=== PATIENT | male | born 1945 | race Caucasian/White ===

== ENCOUNTER → 2017-03-06 | Outpatient (CLI) | payer MEDICARE, OTHER, SELFPAY | PROVIDERS: Visit Provider Family Medicine | DX: R50.9 Fever, unspecified (principal); R05 Cough | CPT/HCPCS: 87486; 87581; 87633; 87798 ==

== ENCOUNTER → 2017-03-07 | Outpatient (CLI) | payer MEDICARE, OTHER, SELFPAY | PROVIDERS: Family Provider Family Medicine; Visit Provider Family Medicine | DX: R50.9 Fever, unspecified (principal); R05 Cough | CPT/HCPCS: 71020 ==

== ENCOUNTER 2017-03-09 20:19 | Emergency (ER) | payer MEDICARE, OTHER, SELFPAY | END 2017-03-09 21:19 | disposition home or self-care (01) | PROVIDERS: Emergency Provider Nurse Practitioner Family; Family Provider Family Medicine; Visit Provider Nurse Practitioner Family | DX: J18.0 Bronchopneumonia, unspecified organism (principal); I25.10 Atherosclerotic heart disease of native coronary artery without angina pectoris; I10 Essential (primary) hypertension; Z79.82 Long term (current) use of aspirin | CPT/HCPCS: G0463; 87804; 99201 ==

== ENCOUNTER → 2017-03-22 12:05 | Outpatient (CLI) | payer MEDICARE, OTHER, SELFPAY ==
[2017-03-22 12:22] LABS: Adenovirus,PCR Not Detected (NotDetected); Bordetella Pertussis Not Detected (NotDetected); Chlamydophila Pneumoniae, PCR Not Detected (NotDetected); Coronavirus 229E Not Detected (NotDetected); Coronavirus NL63 Not Detected (NotDetected); Coronavirus OC43 Not Detected (NotDetected); Coronovirus HKU1,PCR Not Detected (NotDetected); Human Metapneumovirus Not Detected (NotDetected); Influenza A, PCR Not Detected (NotDetected); Influenza AH1, 2009 Not Detected (NotDetected); Influenza AH1, PCR Not Detected (NotDetected); Influenza AH3,PCR Not Detected (NotDetected); Influenza B, PCR Not Detected (NotDetected); Mycoplasma Pneumoniae, PCR Not Detected (NotDected); Parainfluenza 1, PCR Not Detected (NotDetected); Parainfluenza 2, PCR Not Detected (NotDetected); Parainfluenza 3, PCR Not Detected (NotDetected); Parainfluenza 4, PCR Not Detected (NotDetected); Respiratory Syncytial Virus Not Detected (NotDetected); Rhinovirus/Enterovirus Not Detected (NotDetected)
--- NOTE | 2017-03-22 12:25 | XR_ITS ---
XR chest 2V HISTORY: ITS.REASON: BRONCHOPNEUMONIA ORDERING PHYSICIAN: Eduardo Sosa MD PATIENT AGE: 71 years COMPARISON: 03/07/2017 FINDINGS: The cardiomediastinal silhouette and pulmonary vascularity are within normal limits. Previously noted shaggy infiltrate in the right suprahilar region is once again noted but somewhat less apparent. There is now increased density in the right lung base consistent with atelectasis and/or infiltrate. There is also patchy density in the retrocardiac region on the left. No effusions.. No acute bony abnormalities. IMPRESSION: Persistent bronchopneumonia with slight improvement in the right suprahilar infiltrate but new areas of infiltrate and/or atelectatic change in the right lung base and left retrocardiac region
== END ==
PROVIDERS: PCP Family Medicine; Visit Provider Family Medicine
DX: J18.0 Bronchopneumonia, unspecified organism (principal); R05 Cough
CPT/HCPCS: 71046; 87070; 87205; 87486; 87581; 87633; 87798

== ENCOUNTER → 2017-03-25 14:53 | Outpatient (CLI) | payer MEDICARE, OTHER, SELFPAY ==
--- NOTE | 2017-03-25 15:12 | XR_ITS ---
XR chest 2V HISTORY: ITS.REASON: BRONCHOPNEUMONIA ORDERING PHYSICIAN: Eduardo Sosa MD PATIENT AGE: 71 years COMPARISON: 03/22/2017 FINDINGS: The cardiomediastinal silhouette and pulmonary vascularity are within normal limits. Bronchopneumonia once again noted with bilateral areas of infiltrate in the right suprahilar region, right lower lobe, and left lower lung zone overall not significantly changed. No effusions. No acute bony anomalies. IMPRESSION: Overall no change bilateral bronchopneumonia.
== END ==
PROVIDERS: PCP Family Medicine; Visit Provider Family Medicine
DX: J18.0 Bronchopneumonia, unspecified organism (principal)
CPT/HCPCS: 71046

== ENCOUNTER 2017-03-28 10:15 | Inpatient (IN) | payer MEDICARE, OTHER, SELFPAY ==
[2017-03-28] VITALS (7 sets, daily range): BP systolic 112–118; BP diastolic 50–64; PULSE 69–74; RESP 20–24; TEMP 37.2–37.4; O2SAT 90–96; BMI 28.3
--- NOTE | 2017-03-28 11:07 | PC.NURSE ---
PT ARRIVED TO ROOM 205 VIA WHEELCHAIR. VSS ON ADMISSION. LUNGS CTA THROUGHOUT ALL SHELL. HEART RATE REG. ABD SOFT AND NONTENDER WITH ACTIVE BOWEL SOUNDS. PT DENIES PAIN. WILL CONTINUE TO MONITOR.
--- NOTE | 2017-03-28 11:24 | HMH.HP ---
*Admission Date: 03/28/17 <Aga Berg 03/28/17 11:51> *Chief complaint: Cough, fatigue, fevers <Aga Berg 03/28/17 11:51> *History of present illness: Mr. Ji is a 71yo male who has been seen numerous times in the office over the past month. His symptoms of cough, fever, SOA, and body aches began on 03/04/17. He was seen in the office on 03/06/17. His flu and strep test were negative and his CBC showed a viral pattern. A PCR respiratory swab was ordered and was negative. He had a CXR showing a right perihilar and RUL bronchopneumonia. He was started on cough medication. He was feeling worse by 03/09/17 and he went to the [facility] and received a rx for levaquin. He improved on the abx, but once he completed them, he began feeling poorly again and running fevers. He was seen again in the office on 03/20/17 with a normal flu test and CBC. D/t his symptoms and improvement on abx, he was started on another round of levaquin. He was seen in f/u on 03/22/17 and still felt poorly. He had another CXR showing persistent bronchopneumonia with a normal CBC. He was started on zithromax. He had a sputum that came back normal. He had another PCR respiratory panel that also came back normal. He was seen again on 03/25/17 and had another CXR showing, once again, a persistent pneumonia. He presented to the office again today still not feeling well and was admitted for further evaluation and treatment having failed outpatient therapy. <Aga Berg 03/28/17 11:51> [facility] History Medical History: Reports:: Arrhythmia, Atrial Fibrillation, Coronary Artery Disease, Hyperlipidemia, Hypertension Denies:: Cancer, Diabetes Mellitus Type 1, Diabetes Mellitus Type 2, MRSA <Aga Berg 03/28/17 11:51> Other Medical History: Reports: Hoarseness <Aga Berg 03/28/17 11:51> Other Surgeries: Yes: Appendectomy (1960) <Aga Berg 03/28/17 11:51> Amputation: No <Aga Berg 03/28/17 11:51> Fractures: Yes (COMPRESSION FRACTURE IN BACK) <Aga Berg 03/28/17 11:51> - *Social History Educational Level: Completed High School <Aga Berg 03/28/17 11:51> Smoking Status: Former smoker <Aga Berg 03/28/17 11:51> Smoking End Date: 1973 <Aga Berg 03/28/17 11:51> Alcohol Intake: never <Aga Berg 03/28/17 11:51> Occupational Status: other <Aga Berg 03/28/17 11:51> Housing: house <Aga Berg 03/28/17 11:51> Household Members: spouse <Aga Berg 03/28/17 11:51> - Psychiatric History Expresses thoughts of harming self/others: None <Aga Berg 03/28/17 11:51> Suicide Plan Description: No Plan <Aga Berg 03/28/17 11:51> *Family Hx:: Cancer, Coronary Artery Disease, Heart Attack, Hypertension, Stroke <Aga Berg 03/28/17 11:51> Review of Systems - Constitutional Reports body ache(s), Reports chills, Reports fatigue, Reports weakness <Aga Berg 03/28/17 11:51> - Eyes Denies blurry vision, Denies change in vision <Aga Berg 03/28/17 11:51> - ENT Reports nasal congestion, Reports sore throat <Aga Berg 03/28/17 11:51> - *Cardiovascular Denies chest pain <Aga Berg 03/28/17 11:51> - *Respiratory Reports chest congestion, Reports cough, Reports shortness of breath <Aga Berg 03/28/17 11:51> - *Gastrointestinal Denies abdominal pain, Denies loose stools, Denies nausea, Denies vomiting <Aga Berg 03/28/17 11:51> - *Genitourinary Denies difficulty urinating <Aga Berg 03/28/17 11:51> - *Musculoskeletal Reports body aches <Aga Berg 03/28/17 11:51> - *Neurologic Reports dizziness, Reports weakness, Denies memory loss, Denies tingling/numbness/burning sensations <Aga Berg - 03/28/17 11:51> Meds Home Medications Medication Instructions Recorded Confirmed Type Aspirin [Aspirin 81mg EC Tab] 81 mg PO DAILY 03/28/17 03/28/17 History Atorvastatin Calcium [Atorvastatin 40 mg PO HS 03/28
--- NOTE | 2017-03-28 11:33 | P.HP_ITS ---
*Admission Date: 03/28/17 <Aga Berg 03/28/17 11:51> *Chief complaint: Cough, fatigue, fevers <Aga Berg 03/28/17 11:51> *History of present illness: Mr. Ji is a 71yo male who has been seen numerous times in the office over the past month. His symptoms of cough, fever, SOA, and body aches began on . He was seen in the office on 03/06/17. His flu and strep test were negative and his CBC showed a viral pattern. A PCR respiratory swab was ordered and was negative. He had a CXR showing a right perihilar and RUL bronchopneumonia. He was started on cough medication. He was feeling worse by 03/09/17 and he went to the [facility] and received a rx for levaquin. He improved on the abx, but once he completed them, he began feeling poorly again and running fevers. He was seen again in the office on 03/20/17 with a normal flu test and CBC. D/t his symptoms and improvement on abx, he was started on another round of levaquin. He was seen in f/u on 03/22/17 and still felt poorly. He had another CXR showing persistent bronchopneumonia with a normal CBC. He was started on zithromax. He had a sputum that came back normal. He had another PCR respiratory panel that also came back normal. He was seen again on 03/25/17 and had another CXR showing, once again, a persistent pneumonia. He presented to the office again today still not feeling well and was admitted for further evaluation and treatment having failed outpatient therapy. <Aga Berg 03/28/17 11:51> [facility] History Medical History: Reports:: Arrhythmia, Atrial Fibrillation, Coronary Artery Disease, Hyperlipidemia, Hypertension Denies:: Cancer, Diabetes Mellitus Type 1, Diabetes Mellitus Type 2, MRSA < Aga Berg 03/28/17 11:51> Other Medical History: Reports: Hoarseness <Aga Berg 03/28/17 11:51> Other Surgeries: Yes: Appendectomy (1960) <Aga Berg 03/28/17 11:51> Amputation: No <Aga Berg 03/28/17 11:51> Fractures: Yes (COMPRESSION FRACTURE IN BACK) <Aga Berg 03/28/17 11:51> - *Social History Educational Level: Completed High School <Aga Berg 03/28/17 11:51> Smoking Status: Former smoker <Aga Berg 03/28/17 11:51> Smoking End Date: 1973 <Aga Berg 03/28/17 11:51> Alcohol Intake: never <Aga Berg 03/28/17 11:51> Occupational Status: other <Aga Berg 03/28/17 11:51> Housing: house <Aga Berg 03/28/17 11:51> Household Members: spouse <Aga Berg 03/28/17 11:51> - Psychiatric History Expresses thoughts of harming self/others: None <Aga Berg 03/28/17 11: 51> Suicide Plan Description: No Plan <Aga Berg 03/28/17 11:51> *Family Hx:: Cancer, Coronary Artery Disease, Heart Attack, Hypertension, Stroke <Aga Berg 03/28/17 11:51> Review of Systems - Constitutional Reports body ache(s), Reports chills, Reports fatigue, Reports weakness < Aga Berg 03/28/17 11:51> - Eyes Denies blurry vision, Denies change in vision <Aga Berg 03/28/17 11:51> - ENT Reports nasal congestion, Reports sore throat <Aga Berg 03/28/17 11:51> - *Cardiovascular Denies chest pain <Aga Berg 03/28/17 11:51> - *Respiratory Reports chest congestion, Reports cough, Reports shortness of breath <Aga Berg 03/28/17 11:51> - *Gastrointestinal Denies abdominal pain, Denies loose stools, Denies nausea, Denies vomiting < Aga Berg 03/28/17 11:51> - *Genitourinary Denies difficulty urinating <Aga Berg 03/28/17 11:51> - *Musculoskeletal Reports body aches <Aga Berg 03/28/17 11:51> - *Neurologic Reports dizziness, Reports weakne
[2017-03-28 12:20] LABS: Basophils # 0.1 K/mm3 (0-0.2); Basophils % 0.4 % (0.1-2.0); Eosinophils % 0.3 % (0.1-12.0); Hematocrit 39.9 % (42.0-52.0); Hemoglobin 13.6 g/dL (14.1-18.0); Lymphocytes % 89.5 K/mm3 (10-50); Mean Corpuscular HGB Conc 34.1 g/dL (31.8-35.4); Mean Corpuscular Hemoglobin 34.1 pg (27.0-31.2); Mean Corpuscular Volume 100.1 fl (80-94); Mean Platelet Volume 8.2 fl (7.4-10.4); Monocytes # 0.4 K/mm3 (0.1-1.0); Monocytes % 3.4 % (1.7-9.3); Neutrophils # 0.7 K/mm3 (1.8-7.8); Platelet Count 260 K/mm3 (142-424); Red Blood Count 3.99 M/mm3 (4.60-6.20); Red Cell Distribution Width 15.8 % (11.5-17.5); White Blood Count 11.2 K/mm3 (4.8-10.8)
[2017-03-28 12:54] LABS: Alanine Aminotransferase 25 U/L (12-78); Albumin Level 3.3 gm/dL (3.4-5.0); Albumin/Globulin Ratio 0.9 (1.1-1.8); Alkaline Phosphatase 60 U/L (46-116); Aspartate Amino Transferase 15 U/L (15-37); Bilirubin,Total 0.7 mg/dL (0.2-1.0); Blood Urea Nitrogen 20 mg/dL (7-18); C-Reactive Protein 6.5 mg/L (0.0-0.9); Carbon Dioxide 29 mmol/L (21.0-32.0); Chloride 103 mmol/L (98-107); Creatinine Clearance Estimated 84 mL/min (0-300); Creatinine,Serum 0.89 mg/dL (0.70-1.30); Estimated Glomerular Filt Rate 84 ml/min (>60); GFR (African American) 102 ML/MIN (>60); Globulin 3.6 gm/dl (1.3-3.2); Glucose 86 mg/dL (74-106); Sodium 139 mmol/L (136-145); Total Protein,Serum 6.9 gm/dL (6.4-8.2)
[2017-03-28 13:02] LABS: Mycoplasma Pneumo IGM (Rapid) Non-Reactive (Non-Reactiv)
[2017-03-28 13:13] LABS: Neutrophils % 6.5 % (37.0-80.0)
[2017-03-28 13:15] LABS: MANUAL DIFFERENTIAL MANUAL DIFFERENTIAL (MANUAL DIFF)
[2017-03-28 13:25] LABS: Lymphocytes % 77 % (10-50); Monocytes % 19 % (2-9); Neutrophils % 4 % (42-76); Platelet Estimate Normal; Total Cells Counted 100
[2017-03-28 13:26] LABS: RBC Morphology Normal
--- NOTE | 2017-03-28 14:00 | CT_ITS ---
CT angio chest HISTORY: Shortness of air, pneumonia ITS.REASON: SOA ORDERING PHYSICIAN: Eduardo Sosa MD PATIENT AGE: 71 years TECHNIQUE: Helical acquisition obtained following the bolus administration of 75 mL of Isovue 370 followed by a saline bolus. Axial, sagittal, and coronal reformatted images are generated and reviewed. COMPARISON: Radiograph of 03/25/2017 FINDINGS: There is mild degree of motion artifact which somewhat limits fine detail. No evidence of pulmonary embolus, aortic aneurysm, or aortic dissection. There is increased soft tissue density in the right hilum consistent with mild hilar adenopathy. The largest node is in the infrahilar region anterior to the right lower lobe bronchus and measures 2.6 x 1.7 cm. There is increased density in the right lower lobe approximately 4.8 x 2 cm consistent with pneumonia. A 1 cm nodular density is present along the inferior margin of this consolidation. There are some atelectatic changes in the left lower lobe with mildly prominent lymph nodes in the left hilum. 4 mm nodule in the left upper lobe laterally and mild consolidation in the left lower lobe posterior laterally consistent with an area. No effusions are evident. No acute bony anomalies. IMPRESSION: 1. No evidence of pulmonary embolus or aortic aneurysm. 2. Right lower lobe pneumonia with patchy infiltrate also in the left lower lobe. 3. Right hilar adenopathy measuring up to 2.6 x 1.7 cm. Small nodes are present in the left hilar region as well. 4. 1-cm noncalcified nodule right lower lobe inferior to the level of the pneumonia. Suggest 4-6 week follow-up CT scan to confirm resolution of the adenopathy and to assess whether the 1 cm nodule related to the pneumonia or represents a true nodule.
--- NOTE | 2017-03-28 17:19 | PC.NURSE ---
PT CONTINUES TO BE IN NO ACUTE DISTRESS. VSS. AFEBRILE. DENIES PAIN. PT REPORTED EARLIER IN SHIFT THAT HE FEELS THAT HE CAN BREATHE BETTER. WILL CONTINUE TO MONITOR.
--- NOTE | 2017-03-28 18:35 | PC.NURSE ---
Addendum entered by Dilcia Dwyer RN 03/28/17 18:38: o2 @ 1.5 LPM VIA NC. O2 SATS 94%. Original Note: O2 @ 2 LPM VIA NC STARTED PER COVERSATION WITH DR SERRANO.
--- NOTE | 2017-03-28 19:20 | PC.NURSE ---
REPORT GIVEN TO DALI DECKER RN
--- NOTE | 2017-03-28 23:12 | PC.NURSE ---
PT CONTINUES TO REMOVE TEDS, PT AMBULATING MULTIPLE TIMES IN ROOM.
[2017-03-29] VITALS (10 sets, daily range): BP systolic 114–146; BP diastolic 59–77; PULSE 69–79; RESP 16–22; TEMP 36.7–37.4; O2SAT 92–99
--- NOTE | 2017-03-29 03:15 | PC.NURSE ---
PT RESTED WELL TONIGHT W/O C/O PAIN OR DISCOMFORT. DENIES SOB. 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 TOLERATING HOME CPAP AT NIGHT WELL. BS ACTIVE IN ALL 4 QAUDS. A&OX3. NO ACUTE DISTRESS NOTED. WILL CONTINUE TO MONITOR.
[2017-03-29 06:40] LABS: Basophils % 0.3 % (0.1-2.0); Eosinophils % 0.2 % (0.1-12.0); Hematocrit 34.7 % (42.0-52.0); Lymphocytes # 8.9 K/mm3 (0.7-4.5); Lymphocytes % 90.5 K/mm3 (10-50); Mean Corpuscular HGB Conc 34.2 g/dL (31.8-35.4); Mean Corpuscular Volume 99.5 fl (80-94); Mean Platelet Volume 8.6 fl (7.4-10.4); Monocytes # 0.3 K/mm3 (0.1-1.0); Monocytes % 3.2 % (1.7-9.3); Neutrophils # 0.6 K/mm3 (1.8-7.8); Platelet Count 196 K/mm3 (142-424); Red Blood Count 3.49 M/mm3 (4.60-6.20); Red Cell Distribution Width 15.9 % (11.5-17.5); White Blood Count 9.9 K/mm3 (4.8-10.8)
[2017-03-29 06:48] LABS: Anion Gap 10.8 mEq/L (5-15); Blood Urea Nitrogen 15 mg/dL (7-18); Carbon Dioxide 26 mmol/L (21.0-32.0); Chloride 105 mmol/L (98-107); Creatinine Clearance Estimated 84 mL/min (0-300); Creatinine,Serum 0.84 mg/dL (0.70-1.30); Estimated Glomerular Filt Rate 90 ml/min (>60); GFR (African American) 109 ML/MIN (>60); Glucose 124 mg/dL (74-106); Potassium 3.8 mmoL/L (3.5-5.1); Sodium 138 mmol/L (136-145)
--- NOTE | 2017-03-29 07:35 | P.CONPHA_ITS ---
[facility] Pharmacy VTE Monitoring - Patient Demographics Admission date: 03/28/17 Report Date: 03/29/17 Time: 07:35 Allergies/Adverse Reactions: No Known Allergies Allergy (Unverified 03/05/17 14:26) Height: 1.78 m Weight: 89.448 kg Patient Problems: Current Active Problems Bronchopneumonia (Acute) Hypertension (Acute) Coronary artery disease (Acute) Presence of stent in right coronary artery (Acute) Incomplete right bundle branch block (Acute) Sleep apnea (Acute) - VTE Risk Labs: VTE Related Lab Results Hgb 13.6 g/dL (14.1-18.0) L 03/28/17 12:00 Hct 39.9 % (42.0-52.0) L 03/28/17 12:00 Plt Count 260 K/mm3 (142-424) 03/28/17 12:00 BUN 15 mg/dL (7-18) 03/29/17 06:20 Creatinine 0.84 mg/dL (0.70-1.30) 03/29/17 06:20 Estimated Creat Clear 84 mL/min (0-300) 03/29/17 06:20 Was VTE Risk Assessment Performed: Yes VTE Score: 3 VTE Risk Level: Low Risk - Prophylaxis VTE Prophylaxis Ordered?: Yes Pharmacologic Type: Enoxaparin - VTE Diagnosis Confirmed Treatment or plan recommended: Continue Current Treatment
[2017-03-29 08:02] LABS: Neutrophils % 5.8 % (37.0-80.0)
--- NOTE | 2017-03-29 08:03 | PC.NURSE ---
REPORT GIVEN TO Amy BORRERO RN
[2017-03-29 08:09] LABS: MANUAL DIFFERENTIAL MANUAL DIFFERENTIAL (MANUAL DIFF)
[2017-03-29 08:24] LABS: Lymphocytes % 81 % (10-50); Monocytes % 4 % (2-9); Neutrophils % 5 % (42-76); Total Cells Counted 100
[2017-03-29 08:26] LABS: Macrocytosis 1+; Platelet Estimate Normal
[2017-03-29 08:50] LABS: Hemoglobin 11.9 g/dL (14.1-18.0)
--- NOTE | 2017-03-29 09:03 | HMH.ACPN ---
Internal Medicine - PN: Subj *Date: 03/29/17 *Time: 09:03 Interval history: Patient feels a little better this morning, had low grade fever overnight and some SOB Exam Vital signs and Labs for Last 24 Hours: Temp Pulse Resp BP Pulse Ox 99.4 F 76 22 119/66 93 L 03/29/17 04:14 03/29/17 04:14 03/29/17 04:14 03/29/17 04:14 03/29/17 04:14 Laboratory Results - last 24 hr 03/28/17 12:00: WBC 11.2 H, RBC 3.99 L, Hgb 13.6 L, Hct 39.9 L, MCV 100.1 H, MCH 34.1 H, MCHC 34.1, RDW 15.8, Plt Count 260, MPV 8.2, Neut % (Auto) 6.5 L, Lymph % (Auto) 89.5 H, [place] % (Auto) 3.4, Eos % (Auto) 0.3, Baso % (Auto) 0.4, Neut # (Auto) 0.7 L*, Lymph # (Auto) 10.0 H, [place] # (Auto) 0.4, Eos # (Auto) 0.0, Baso # (Auto) 0.1, Total Counted 100, Neutrophils % (Manual) 4 L, Lymphocytes % (Manual) 77 H, Monocytes % (Manual) 19 H, Platelet Estimate Normal, RBC Morphology Normal 03/28/17 12:00: Sodium 139, Potassium 4.0, Chloride 103, Carbon Dioxide 29, Anion Gap 11.0, BUN 20 H, Creatinine 0.89, Estimated Creat Clear 84, Estimated GFR 84, Est GFR ( Amer) 102, Glucose 86, Calcium 9.0, Total Bilirubin 0.7, AST 15, ALT 25, Alkaline Phosphatase 60, C-Reactive Protein 6.5 H, Total Protein 6.9, Albumin 3.3 L, Globulin 3.6 H, Albumin/Globulin Ratio 0.9 L 03/28/17 12:00: Influenza Type A Ag Negative, Influenza Type B Ag Negative, Mycoplasma pneumon IgM Non-reactive 03/29/17 06:20: WBC 9.9, RBC 3.49 L, Hgb 11.9 L D, Hct 34.7 L, MCV 99.5 H, MCH 34.0 H, MCHC 34.2, RDW 15.9, Plt Count 196, MPV 8.6, Neut % (Auto) 5.8 L, Lymph % (Auto) 90.5 H, [place] % (Auto) 3.2, Eos % (Auto) 0.2, Baso % (Auto) 0.3, Neut # (Auto) 0.6 L*, Lymph # (Auto) 8.9 H, [place] # (Auto) 0.3, Eos # (Auto) 0.0, Baso # (Auto) 0.0, Total Counted 100, Neutrophils % (Manual) 5 L, Lymphocytes % (Manual) 81 H, Atypical Lymphs % 10.0, Monocytes % (Manual) 4, Platelet Estimate Normal, Macrocytosis 1+ 03/29/17 06:20: Sodium 138, Potassium 3.8, Chloride 105, Carbon Dioxide 26, Anion Gap 10.8, BUN 15, Creatinine 0.84, Estimated Creat Clear 84, Estimated GFR 90, Est GFR ( Amer) 109, Glucose 124 H D I & O for Last 24 hours: Intake & Output 03/26/17 03/27/17 03/28/17 03/29/17 11:59 11:59 11:59 11:59 Intake Total 3275 / 3275 Output Total 250 / 250 Balance 3025 / 3025 Weight 197 lb 3.2 oz 197 lb 3.2 oz Microbiology Reports for the Last 24 Hours: Microbiology 03/28/17 15:55 Sputum - Expectorated Sputum Gram Stain - Final - Constitutional no acute distress - *Routine Respiratory Exam Present: crackles (bibasilar) - *Routine Cardiovascular Exam Present: RRR - *Routine Extremities Exam Absent: edema Assessment and Plan (1) Bronchopneumonia Current visit: Yes Status: Acute Category: Medical Code(s): J18.0 - Bronchopneumonia, unspecified organism (2) Prerenal azotemia Current visit: Yes Status: Acute Category: Medical Code(s): R79.89 - Other specified abnormal findings of blood chemistry (3) Coronary artery disease Current visit: Yes Status: Acute Category: Medical Code(s): I25.10 - Atherosclerotic heart disease of [place] coronary artery without angina pectoris (4) Hypertension Current visit: Yes Status: Acute Category: Medical Code(s): I10 - Essential (primary) hypertension (5) Incomplete right bundle branch block Current visit: Yes Status: Acute Category: Medical Code(s): I45.10 - Unspecified right bundle-branch block (6) Presence of stent in right coronary artery Current visit: Yes Status: Acute Category: Medical Code(s): Z95.5 - Presence of coronary angioplasty implant and graft (7) Sleep apnea Current visit: Yes Status: Acute Category: Medical Code(s): G47.30 - Sleep apnea, unspecified (8) Lymphocytosis Current visit: Yes Status: Acute Category: Medical Code(s): D72.820 - Lymphocytosis (symptomatic) - Assessment and plan all Dx Assessment and Plan for all problems:: Continue current t
--- NOTE | 2017-03-29 09:07 | P.PN_ITS ---
Internal Medicine - PN: Subj *Date: 03/29/17 *Time: 09:03 Interval history: Patient feels a little better this morning, had low grade fever overnight and some SOB Exam Vital signs and Labs for Last 24 Hours: Temp Pulse Resp BP Pulse Ox 99.4 F 76 22 119/66 93 L 03/29/17 04:14 03/29/17 04:14 03/29/17 04:14 03/29/17 04:14 03/29/17 04:14 Laboratory Results - last 24 hr 03/28/17 12:00: WBC 11.2 H, RBC 3.99 L, Hgb 13.6 L, Hct 39.9 L, MCV 100.1 H, MCH 34.1 H, MCHC 34.1, RDW 15.8, Plt Count 260, MPV 8.2, Neut % (Auto) 6.5 L, Lymph % (Auto) 89.5 H, [place] % (Auto) 3.4, Eos % (Auto) 0.3, Baso % (Auto) 0.4, Neut # (Auto) 0.7 L*, Lymph # (Auto) 10.0 H, [place] # (Auto) 0.4, Eos # (Auto) 0.0 , Baso # (Auto) 0.1, Total Counted 100, Neutrophils % (Manual) 4 L, Lymphocytes % (Manual) 77 H, Monocytes % (Manual) 19 H, Platelet Estimate Normal, RBC Morphology Normal 03/28/17 12:00: Sodium 139, Potassium 4.0, Chloride 103, Carbon Dioxide 29, Anion Gap 11.0, BUN 20 H, Creatinine 0.89, Estimated Creat Clear 84, Estimated GFR 84, Est GFR ( Amer) 102, Glucose 86, Calcium 9.0, Total Bilirubin 0.7 , AST 15, ALT 25, Alkaline Phosphatase 60, C-Reactive Protein 6.5 H, Total Protein 6.9, Albumin 3.3 L, Globulin 3.6 H, Albumin/Globulin Ratio 0.9 L 03/28/17 12:00: Influenza Type A Ag Negative, Influenza Type B Ag Negative, Mycoplasma pneumon IgM Non-reactive 03/29/17 06:20: WBC 9.9, RBC 3.49 L, Hgb 11.9 L D, Hct 34.7 L, MCV 99.5 H, MCH 34.0 H, MCHC 34.2, RDW 15.9, Plt Count 196, MPV 8.6, Neut % (Auto) 5.8 L, Lymph % (Auto) 90.5 H, [place] % (Auto) 3.2, Eos % (Auto) 0.2, Baso % (Auto) 0.3, Neut # (Auto) 0.6 L*, Lymph # (Auto) 8.9 H, [place] # (Auto) 0.3, Eos # (Auto) 0.0, Baso # (Auto) 0.0, Total Counted 100, Neutrophils % (Manual) 5 L, Lymphocytes % ( Manual) 81 H, Atypical Lymphs % 10.0, Monocytes % (Manual) 4, Platelet Estimate Normal, Macrocytosis 1+ 03/29/17 06:20: Sodium 138, Potassium 3.8, Chloride 105, Carbon Dioxide 26, Anion Gap 10.8, BUN 15, Creatinine 0.84, Estimated Creat Clear 84, Estimated GFR 90, Est GFR ( Amer) 109, Glucose 124 H D I & O for Last 24 hours: Intake & Output 03/26/17 03/27/17 03/28/17 03/29/17 11:59 11:59 11:59 11:59 Intake Total 3275 / 3275 Output Total 250 / 250 Balance 3025 / 3025 Weight 197 lb 3.2 oz 197 lb 3.2 oz Microbiology Reports for the Last 24 Hours: Microbiology 03/28/17 15:55 Sputum - Expectorated Sputum Gram Stain - Final - Constitutional no acute distress - *Routine Respiratory Exam Present: crackles (bibasilar) - *Routine Cardiovascular Exam Present: RRR - *Routine Extremities Exam Absent: edema Assessment and Plan (1) Bronchopneumonia Current visit: Yes Status: Acute Category: Medical Code(s): J18.0 - Bronchopneumonia, unspecified organism (2) Prerenal azotemia Current visit: Yes Status: Acute Category: Medical Code(s): R79.89 - Other specified abnormal findings of blood chemistry (3) Coronary artery disease Current visit: Yes Status: Acute Category: Medical Code(s): I25.10 - Atherosclerotic heart disease of [place] coronary artery without angina pectoris (4) Hypertension Current visit: Yes Status: Acute Category: Medical Code(s): I10 - Essential (primary) hypertension (5) Incomplete right bundle branch block Current visit: Yes Status: Acute Category: Medical Code(s): I45.10 - Unspecified right bundle-branch block (6) Presence of stent in right coronary ar
[2017-03-30] VITALS (8 sets, daily range): BP systolic 112–147; BP diastolic 59–76; PULSE 66–77; RESP 18–20; TEMP 36.7–37.4; O2SAT 92–95
--- NOTE | 2017-03-30 09:04 | HMH.ACPN ---
Internal Medicine - PN: Subj *Date: 03/30/17 *Time: 09:04 Interval history: Patient feels a little better today, no fever overnight, slept fairly well, had a bowel movement last night. Exam Vital signs and Labs for Last 24 Hours: Temp Pulse Resp BP Pulse Ox 98.3 F 77 20 112/59 92 L 03/30/17 08:00 03/30/17 08:00 03/30/17 08:00 03/30/17 08:00 03/30/17 08:00 Vital Signs Temp Pulse Pulse Resp BP Pulse Ox 03/30/17 08:00 98.3 F 77 20 112/59 92 L 03/30/17 06:18 70 92 L 03/30/17 04:00 99.3 F 72 20 118/60 94 L 03/30/17 00:00 99.0 F 74 18 126/62 94 L 03/29/17 21:30 69 93 L 03/29/17 20:00 98.9 F 72 16 139/62 95 03/29/17 16:17 71 95 03/29/17 16:00 98.6 F 72 22 146/73 96 03/29/17 12:00 98.0 F 69 20 128/77 99 03/29/17 09:17 74 20 92 L 03/29/17 09:15 95 Intake and Output 03/29/17 03/30/17 03/30/17 19:59 03:59 11:59 Intake Total 720 / 720 360 / 360 Balance 720 / 720 360 / 360 Intake: Intake, Oral Amount 720 / 720 360 / 360 Other: Number of Voids 5 I & O for Last 24 hours: Intake & Output 03/27/17 03/28/17 03/29/17 03/30/17 11:59 11:59 11:59 11:59 Intake Total 3755 / 3755 1080 / 1080 Output Total 250 / 250 Balance 3505 / 3505 1080 / 1080 Weight 197 lb 3.2 oz 197 lb 3.2 oz Microbiology Reports for the Last 24 Hours: Microbiology 03/28/17 12:00 Blood Blood Culture - Preliminary NO GROWTH AFTER 24 HOURS 03/28/17 12:00 Blood Blood Culture - Preliminary NO GROWTH AFTER 24 HOURS - Constitutional no acute distress - *Routine HEENT Exam ENT: Present: mucous membranes moist - *Routine Respiratory Exam Present: decreased breath sounds (in the bases), crackles (rare, on left side) - *Routine Cardiovascular Exam Present: RRR - *Routine Extremities Exam Absent: edema Assessment and Plan (1) Bronchopneumonia Current visit: Yes Status: Acute Category: Medical Code(s): J18.0 - Bronchopneumonia, unspecified organism (2) Prerenal azotemia Current visit: Yes Status: Resolved Category: Medical Code(s): R79.89 - Other specified abnormal findings of blood chemistry (3) Coronary artery disease Current visit: Yes Status: Acute Category: Medical Code(s): I25.10 - Atherosclerotic heart disease of [place] coronary artery without angina pectoris (4) Hypertension Current visit: Yes Status: Acute Category: Medical Code(s): I10 - Essential (primary) hypertension (5) Incomplete right bundle branch block Current visit: Yes Status: Acute Category: Medical Code(s): I45.10 - Unspecified right bundle-branch block (6) Presence of stent in right coronary artery Current visit: Yes Status: Acute Category: Medical Code(s): Z95.5 - Presence of coronary angioplasty implant and graft (7) Sleep apnea Current visit: Yes Status: Acute Category: Medical Code(s): G47.30 - Sleep apnea, unspecified (8) Lymphocytosis Current visit: Yes Status: Acute Category: Medical Code(s): D72.820 - Lymphocytosis (symptomatic) - Assessment and plan all Dx Assessment and Plan for all problems:: Patient is slowly improving. Continue current care, his pneumonia seems to be responding to Invanz. Peripheral blood smear results still pending. Recheck labs tomorrow.
--- NOTE | 2017-03-30 09:07 | P.PN_ITS ---
Internal Medicine - PN: Subj *Date: 03/30/17 *Time: 09:04 Interval history: Patient feels a little better today, no fever overnight, slept fairly well, had a bowel movement last night. Exam Vital signs and Labs for Last 24 Hours: Temp Pulse Resp BP Pulse Ox 98.3 F 77 20 112/59 92 L 03/30/17 08:00 03/30/17 08:00 03/30/17 08:00 03/30/17 08:00 03/30/17 08:00 Vital Signs Temp Pulse Pulse Resp BP Pulse Ox 03/30/17 08:00 98.3 F 77 20 112/59 92 L 03/30/17 06:18 70 92 L 03/30/17 04:00 99.3 F 72 20 118/60 94 L 03/30/17 00:00 99.0 F 74 18 126/62 94 L 03/29/17 21:30 69 93 L 03/29/17 20:00 98.9 F 72 16 139/62 95 03/29/17 16:17 71 95 03/29/17 16:00 98.6 F 72 22 146/73 96 03/29/17 12:00 98.0 F 69 20 128/77 99 03/29/17 09:17 74 20 92 L 03/29/17 09:15 95 Intake and Output 03/29/17 03/30/17 03/30/17 19:59 03:59 11:59 Intake Total 720 / 720 360 / 360 Balance 720 / 720 360 / 360 Intake: Intake, Oral Amount 720 / 720 360 / 360 Other: Number of Voids 5 I & O for Last 24 hours: Intake & Output 03/27/17 03/28/17 03/29/17 03/30/17 11:59 11:59 11:59 11:59 Intake Total 3755 / 3755 1080 / 1080 Output Total 250 / 250 Balance 3505 / 3505 1080 / 1080 Weight 197 lb 3.2 oz 197 lb 3.2 oz Microbiology Reports for the Last 24 Hours: Microbiology 03/28/17 12:00 Blood Blood Culture - Preliminary NO GROWTH AFTER 24 HOURS 03/28/17 12:00 Blood Blood Culture - Preliminary NO GROWTH AFTER 24 HOURS - Constitutional no acute distress - *Routine HEENT Exam ENT: Present: mucous membranes moist - *Routine Respiratory Exam Present: decreased breath sounds (in the bases), crackles (rare, on left side) - *Routine Cardiovascular Exam Present: RRR - *Routine Extremities Exam Absent: edema Assessment and Plan (1) Bronchopneumonia Current visit: Yes Status: Acute Category: Medical Code(s): J18.0 - Bronchopneumonia, unspecified organism (2) Prerenal azotemia Current visit: Yes Status: Resolved Category: Medical Code(s): R79.89 - Other specified abnormal findings of blood chemistry (3) Coronary artery disease Current visit: Yes Status: Acute Category: Medical Code(s): I25.10 - Atherosclerotic heart disease of [place] coronary artery without angina pectoris (4) Hypertension Current visit: Yes Status: Acute Category: Medical Code(s): I10 - Essential (primary) hypertension (5) Incomplete right bundle branch block Current visit: Yes Status: Acute Category: Medical Code(s): I45.10 - Unspecified right bundle-branch block (6) Presence of stent in right coronary artery Current visit: Yes Status: Acute Category: Medical Code(s): Z95.5 - Presence of coronary angioplasty implant and graft (7) Sleep apnea Current visit: Yes Status: Acute Category: Medical Code(s): G47.30 - Sleep apnea, unspecified (8) Lymphocytosis Current visit: Yes Status: Acute Category: Medical Code(s): D72.820 - Lymphocytosis (symptomatic) - Assessment and plan all Dx Assessment and Plan for all problems:: P
--- NOTE | 2017-03-30 14:36 | HMH.ACPN ---
Internal Medicine - PN: Subj *Date: 03/30/17 *Time: 14:36 Exam Vital signs and Labs for Last 24 Hours: Temp Pulse Resp BP Pulse Ox 98.1 F 66 18 124/63 93 L 03/30/17 12:00 03/30/17 12:00 03/30/17 12:00 03/30/17 12:00 03/30/17 12:00 I & O for Last 24 hours: Intake & Output 03/27/17 03/28/17 03/29/17 03/30/17 23:59 23:59 23:59 23:59 Intake Total 1125 / 1125 3350 / 3350 860 / 860 Output Total 250 / 250 Balance 875 / 875 3350 / 3350 860 / 860 Weight 89.448 kg 89.448 kg Microbiology Reports for the Last 24 Hours: Microbiology 03/28/17 12:00 Blood Blood Culture - Preliminary NO GROWTH AFTER 48 HOURS 03/28/17 12:00 Blood Blood Culture - Preliminary NO GROWTH AFTER 48 HOURS The patient's infection will respond to the chosen ABx?: Yes Is the patient receiving the right drug, dose, and route?: Yes Could a more targeted ABx be ordered?: No
[2017-03-30 16:11] LABS: Peripheral Smear Review Scanned Result
[2017-03-31] VITALS (10 sets, daily range): BP systolic 118–132; BP diastolic 63–72; PULSE 60–76; RESP 18; TEMP 36.3–36.9; O2SAT 92–97
[2017-03-31 07:49] LABS: Anion Gap 11.9 mEq/L (5-15); Basophils % 0.3 % (0.1-2.0); Blood Urea Nitrogen 15 mg/dL (7-18); Carbon Dioxide 28 mmol/L (21.0-32.0); Chloride 105 mmol/L (98-107); Creatinine Clearance Estimated 84 mL/min (0-300); Creatinine,Serum 0.81 mg/dL (0.70-1.30); Eosinophils % 0.3 % (0.1-12.0); Estimated Glomerular Filt Rate 94 ml/min (>60); GFR (African American) 113 ML/MIN (>60); Glucose 95 mg/dL (74-106); Hematocrit 35.2 % (42.0-52.0); Hemoglobin 11.8 g/dL (14.1-18.0); Lymphocytes # 9.3 K/mm3 (0.7-4.5); Lymphocytes % 91.6 K/mm3 (10-50); Mean Corpuscular HGB Conc 33.6 g/dL (31.8-35.4); Mean Corpuscular Hemoglobin 34.4 pg (27.0-31.2); Mean Corpuscular Volume 102.3 fl (80-94); Mean Platelet Volume 7.9 fl (7.4-10.4); Monocytes # 0.3 K/mm3 (0.1-1.0); Monocytes % 2.6 % (1.7-9.3); Neutrophils # 0.5 K/mm3 (1.8-7.8); Platelet Count 180 K/mm3 (142-424); Potassium 3.9 mmoL/L (3.5-5.1); Red Blood Count 3.44 M/mm3 (4.60-6.20); Sodium 141 mmol/L (136-145); White Blood Count 10.1 K/mm3 (4.8-10.8)
[2017-03-31 07:50] LABS: Neutrophils % 5.1 % (37.0-80.0)
[2017-03-31 07:51] LABS: MANUAL DIFFERENTIAL MANUAL DIFFERENTIAL (MANUAL DIFF)
--- NOTE | 2017-03-31 08:59 | HMH.ACPN ---
Internal Medicine - PN: Subj *Date: 03/31/17 *Time: 08:59 Interval history: Patient with no new complaints today, feels a little better. Exam Vital signs and Labs for Last 24 Hours: Temp Pulse Resp BP Pulse Ox 98.0 F 75 18 118/69 92 L 03/31/17 08:00 03/31/17 08:00 03/31/17 08:00 03/31/17 08:00 03/31/17 08:00 Laboratory Results - last 24 hr 03/31/17 06:25: WBC 10.1, RBC 3.44 L, Hgb 11.8 L, Hct 35.2 L, MCV 102.3 H, MCH 34.4 H, MCHC 33.6, RDW 16.0, Plt Count 180, MPV 7.9, Neut % (Auto) 5.1 L, Lymph % (Auto) 91.6 H, [place] % (Auto) 2.6, Eos % (Auto) 0.3, Baso % (Auto) 0.3, Neut # (Auto) 0.5 L*, Lymph # (Auto) 9.3 H, [place] # (Auto) 0.3, Eos # (Auto) 0.0, Baso # (Auto) 0.0 03/31/17 06:25: Sodium 141, Potassium 3.9, Chloride 105, Carbon Dioxide 28, Anion Gap 11.9, BUN 15, Creatinine 0.81, Estimated Creat Clear 84, Estimated GFR 94, Est GFR ( Amer) 113, Glucose 95 Vital Signs Temp Pulse Pulse Resp BP BP Pulse Ox 03/31/17 08:00 98.0 F 75 18 118/69 92 L 03/31/17 06:30 65 03/31/17 04:00 98.4 F 68 18 120/63 94 L 03/31/17 00:00 97.3 F L 65 18 132/72 94 L 03/30/17 20:00 98.4 F 70 18 147/76 94 L 03/30/17 19:40 70 93 L 03/30/17 16:00 98.5 F 67 20 126/59 94 L 03/30/17 12:00 98.1 F 66 18 124/63 93 L Intake and Output 03/30/17 03/31/17 03/31/17 19:59 03:59 11:59 Intake Total 1080 / 1080 3067 / 3067 Balance 1080 / 1080 3067 / 3067 Intake: Intake, Oral Amount 1080 / 1080 Intake, Total IV Amount 3067 / 3067 Dex 5% in 0.45% NaCl 1,000 ml @ 3067 / 3067 50 mls/hr IV .Q20H CELESTINO Rx#: [id number] Other: Number of Voids 6 Number of Unmeasured Voids 1 I & O for Last 24 hours: Intake & Output 03/28/17 03/29/17 03/30/17 03/31/17 11:59 11:59 11:59 11:59 Intake Total 3755 / 3755 1080 / 1080 4147 / 4147 Output Total 250 / 250 Balance 3505 / 3505 1080 / 1080 4147 / 4147 Weight 197 lb 3.2 oz 197 lb 3.2 oz Microbiology Reports for the Last 24 Hours: Microbiology 03/28/17 12:00 Blood Blood Culture - Preliminary NO GROWTH AFTER 48 HOURS 03/28/17 12:00 Blood Blood Culture - Preliminary NO GROWTH AFTER 48 HOURS - Constitutional no acute distress - *Routine HEENT Exam ENT: Present: mucous membranes moist - *Routine Respiratory Exam Absent: wheezes Comments: good air movement, rare bibasilar crackles - *Routine Cardiovascular Exam Present: RRR - *Routine Extremities Exam Absent: edema Assessment and Plan (1) Bronchopneumonia Current visit: Yes Status: Acute Category: Medical Code(s): J18.0 - Bronchopneumonia, unspecified organism (2) Prerenal azotemia Current visit: Yes Status: Resolved Category: Medical Code(s): R79.89 - Other specified abnormal findings of blood chemistry (3) Coronary artery disease Current visit: Yes Status: Acute Category: Medical Code(s): I25.10 - Atherosclerotic heart disease of [place] coronary artery without angina pectoris (4) Hypertension Current visit: Yes Status: Acute Category: Medical Code(s): I10 - Essential (primary) hypertension (5) Incomplete right bundle branch block Current visit: Yes Status: Acute Category: Medical Code(s): I45.10 - Unspecified right bundle-branch block (6) Presence of stent in right coronary artery Current visit: Yes Status: Acute Category: Medical Code(s): Z95.5 - Presence of coronary angioplasty implant and graft (7) Sleep apnea Current visit: Yes Status: Acute Category: Medical Code(s): G47.30 - Sleep apnea, unspecified (8) Lymphocytosis Current visit: Yes Status: Acute Category: Medical Code(s): D72.820 - Lymphocytosis (symptomatic) - Assessment and plan all Dx Assessment and Plan for all problems:: Patient is slowly improving. Saline lock IV fluids today, possible PICC line hilda
--- NOTE | 2017-03-31 09:02 | P.PN_ITS ---
Internal Medicine - PN: Subj *Date: 03/31/17 *Time: 08:59 Interval history: Patient with no new complaints today, feels a little better. Exam Vital signs and Labs for Last 24 Hours: Temp Pulse Resp BP Pulse Ox 98.0 F 75 18 118/69 92 L 03/31/17 08:00 03/31/17 08:00 03/31/17 08:00 03/31/17 08:00 03/31/17 08:00 Laboratory Results - last 24 hr 03/31/17 06:25: WBC 10.1, RBC 3.44 L, Hgb 11.8 L, Hct 35.2 L, MCV 102.3 H, MCH 34.4 H, MCHC 33.6, RDW 16.0, Plt Count 180, MPV 7.9, Neut % (Auto) 5.1 L, Lymph % (Auto) 91.6 H, [place] % (Auto) 2.6, Eos % (Auto) 0.3, Baso % (Auto) 0.3, Neut # (Auto) 0.5 L*, Lymph # (Auto) 9.3 H, [place] # (Auto) 0.3, Eos # (Auto) 0.0, Baso # (Auto) 0.0 03/31/17 06:25: Sodium 141, Potassium 3.9, Chloride 105, Carbon Dioxide 28, Anion Gap 11.9, BUN 15, Creatinine 0.81, Estimated Creat Clear 84, Estimated GFR 94, Est GFR ( Amer) 113, Glucose 95 Vital Signs Temp Pulse Pulse Resp BP BP Pulse Ox 03/31/17 08:00 98.0 F 75 18 118/69 92 L 03/31/17 06:30 65 03/31/17 04:00 98.4 F 68 18 120/63 94 L 03/31/17 00:00 97.3 F L 65 18 132/72 94 L 03/30/17 20:00 98.4 F 70 18 147/76 94 L 03/30/17 19:40 70 93 L 03/30/17 16:00 98.5 F 67 20 126/59 94 L 03/30/17 12:00 98.1 F 66 18 124/63 93 L Intake and Output 03/30/17 03/31/17 03/31/17 19:59 03:59 11:59 Intake Total 1080 / 1080 3067 / 3067 Balance 1080 / 1080 3067 / 3067 Intake: Intake, Oral Amount 1080 / 1080 Intake, Total IV Amount 3067 / 3067 Dex 5% in 0.45% NaCl 1,000 ml @ 3067 / 3067 50 mls/hr IV .Q20H CELESTINO Rx#: [id number] Other: Number of Voids 6 Number of Unmeasured Voids 1 I & O for Last 24 hours: Intake & Output 03/28/17 03/29/17 03/30/17 03/31/17 11:59 11:59 11:59 11:59 Intake Total 3755 / 3755 1080 / 1080 4147 / 4147 Output Total 250 / 250 Balance 3505 / 3505 1080 / 1080 4147 / 4147 Weight 197 lb 3.2 oz 197 lb 3.2 oz Microbiology Reports for the Last 24 Hours: Microbiology 03/28/17 12:00 Blood Blood Culture - Preliminary NO GROWTH AFTER 48 HOURS 03/28/17 12:00 Blood Blood Culture - Preliminary NO GROWTH AFTER 48 HOURS - Constitutional no acute distress - *Routine HEENT Exam ENT: Present: mucous membranes moist - *Routine Respiratory Exam Absent: wheezes Comments: good air movement, rare bibasilar crackles - *Routine Cardiovascular Exam Present: RRR - *Routine Extremities Exam Absent: edema Assessment and Plan (1) Bronchopneumonia Current visit: Yes Status: Acute Category: Medical Code(s): J18.0 - Bronchopneumonia, unspecified organism (2) Prerenal azotemia Current visit: Yes Status: Resolved Category: Medical Code(s): R79.89 - Other specified abnormal findings of blood chemistry (3) Coronary artery disease Current visit: Yes Status: Acute Category: Medical Code(s): I25.10 - Atherosclerotic heart disease of [place] coronary artery without angina pectoris (4) Hypertension Current visit: Yes Status: Acute Category: Medical Code(s): I10 - Essential (primary) hypertension (5) Incomplete right bund
--- NOTE | 2017-03-31 09:04 | XR_ITS ---
XR chest 2V COMPARISON: PA and lateral chest 03/22/2017 HISTORY: Cough, follow-up pneumonia TECHNIQUE: PA and lateral chest FINDINGS: This is a somewhat poor inspiration. There is a persistent somewhat ill-defined pneumonic infiltrate in the right infrahilar region and right lower lobe. There is been a complete clearing of the minimal infiltrate in the right suprahilar region and right upper lobe. The left lung field is clear. Cardiac size is likely normal considering the poor inspiration. IMPRESSION: Slight interval improvement from the previous study with partial clearing of the right suprahilar infiltrate, persistent ill-defined right lower lobe bronchopneumonia
[2017-03-31 09:54] LABS: Lymphocytes % 27 % (10-50); Monocytes % 39 % (2-9); Neutrophils % 10 % (42-76); Total Cells Counted 100
[2017-03-31 09:55] LABS: Platelet Estimate Normal; RBC Morphology Normal
[2017-04-01] VITALS (10 sets, daily range): BP systolic 100–123; BP diastolic 51–65; PULSE 61–86; RESP 16–20; TEMP 36.7–37.2; O2SAT 90–98; BMI 28.2
--- NOTE | 2017-04-01 04:31 | PC.NURSE ---
PT UP TO CHAIR ON EVENING SHIFT. WALKING ABOUT ROOM. NO COMPLAINTS OF SOB OR COUGH NOTED. PT HAS WORN HOME CPAP TONIGHT. PT HAS SLEPT.
--- NOTE | 2017-04-01 08:45 | P.PN_ITS ---
Internal Medicine - PN: Subj *Date: 04/02/17 *Time: 19:46 Interval history: Feeling better; coughing less; SOB with exertion; has been OOB; voiding QS; denies pain Exam Vital signs and Labs for Last 24 Hours: Temp Pulse Resp BP Pulse Ox 98.2 F 86 18 114/63 90 L 04/01/17 08:09 04/01/17 08:09 04/01/17 08:09 04/01/17 08:09 04/01/17 08:09 Laboratory Results - last 24 hr 03/31/17 06:25: Total Counted 100, Neutrophils % (Manual) 10 L, Lymphocytes % ( Manual) 27, Atypical Lymphs % 24.0, Monocytes % (Manual) 39 H, Platelet Estimate Normal, RBC Morphology Normal I & O for Last 24 hours: Intake & Output 03/29/17 03/30/17 03/31/17 04/01/17 11:59 11:59 11:59 11:59 Intake Total 3755 / 3755 1080 / 1080 4147 / 4147 1240 / 1240 Output Total 250 / 250 Balance 3505 / 3505 1080 / 1080 4147 / 4147 1240 / 1240 Weight 197 lb 3.2 oz Microbiology Reports for the Last 24 Hours: Microbiology 03/28/17 12:00 Blood Blood Culture - Preliminary NO GROWTH AFTER 72 HOURS 03/28/17 12:00 Blood Blood Culture - Preliminary NO GROWTH AFTER 72 HOURS Radiology Reports for the Last 24 Hours: 03/31/17 CXR IMPRESSION: Slight interval improvement from the previous study with partial clearing of the right suprahilar infiltrate, persistent ill-defined right lower lobe bronchopneumonia - Constitutional no acute distress - *Routine Respiratory Exam Comments: right basilar crackles - *Routine Cardiovascular Exam Present: RRR - *Routine Abdominal Exam Present: soft, normoactive bowel sounds. Absent: tenderness, distended - *Routine Extremities Exam Present: full ROM. Absent: edema, calf tenderness - *Routine Neurological Exam Present: alert, oriented X3 Assessment and Plan - Assessment and plan all Dx Assessment and Plan for all problems:: Patient seen and agree with above note. PICC line ordered for today.
--- NOTE | 2017-04-01 08:52 | XR_ITS ---
XR chest portable PICC plac Ordering Physician: Eduardo Sosa MD Patient Age: 71 years: Male HISTORY: ITS.REASON: Confirm PICC line placement TECHNIQUE: COMPARISON :Previous chest films from April 01, 2017, March 31, 2017 March 07, 2017, & CT chest with contrast 03/28/2017. FINDINGS PICC line enters from the left arm with tip at the SVC. The wispy infiltrate at the right base and right infrahilar region has shown improvement since previous chest film 03/31/2017., As has the subtle infiltrate at the right midlung. The mild infiltrate left perihilar region and extending towards left infrahilar area appears similar if not slightly improved. Likely near baseline appearance on left.: Heart, normal size the generous right [place] again noted and stable on CXR. Right hilar adenopathy was noted on CT chest from 03/28/2017. Superior mediastinum chest wall unremarkable. Upper normal width right AC joint. IMPRESSION New PICC line satisfactory position Right lung. Slight improvement pneumonic infiltrate right base & right midlung Left lung. Fairly Stable appearance with trace residual left perihilar extending towards left base. Left chest nearly to baseline. . less optimal inspiration also accentuates markings lung bases. On today's PCXR
--- NOTE | 2017-04-01 13:41 | CARE MANAGER ---
Spoke with Mr. Ji and his , given options of IV antibotics after discharge from acute care. Patient and his would like to return to [facility] once a day for the remainder of his regimen. Getting antibotics at home would cost patient $600 + for the entire course. This information was forwarded to MD, patient will likely discharge in the AM.
--- NOTE | 2017-04-01 18:00 | PC.NURSE ---
Patient up ad. brooke. Denies any discomfort at this time. No sign or symptom of distress noted. PICC line inserted per Vidya Lemus RN. Patient tolerated this well. at bedside. Will continue to monitor.
--- NOTE | 2017-04-01 19:42 | PC.NURSE ---
Report given to ANDRESSA Tripathi.
[2017-04-02] VITALS: BP 116/46; PULSE 70; RESP 20; TEMP 36.6; O2SAT 96
--- NOTE | 2017-04-02 00:43 | PC.NURSE ---
PT IS WEARING HIS C-PAP AT HOME AT BEDTIME
--- NOTE | 2017-04-02 04:04 | PC.NURSE ---
NO PAIN OR DISCOMFORT VOICED THIS SHIFT, PT HAS TOLERATED RA WELL, DENIES SOB. PICC LINE TO MEENAKSHI NOTED, DSG CDI, PATENT WITH GREAT BLOOD RETURN. VSS, A&OX3. 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 BS ACTIVE IN ALL 4 QAUDS. NO ACUTE DISTRESS NOTED. WILL CONTINUE TO MONITOR.
[2017-04-02 04:20] VITALS: BP 106/57; PULSE 65; RESP 18; TEMP 36.8; O2SAT 96
[2017-04-02 06:23] VITALS: PULSE 92; PULSE 94; O2SAT 91
--- NOTE | 2017-04-02 07:31 | PC.NURSE ---
REPORT GIVEN TO Vidya WATKINS
--- NOTE | 2017-04-02 07:36 | PC.NURSE ---
REPORT GIVEN TO Karine LEMA RN
[2017-04-02 07:47] VITALS: BP 122/82; PULSE 103; RESP 18; TEMP 36.8; O2SAT 93
--- NOTE | 2017-04-02 08:35 | HMH.ACPN ---
Internal Medicine - PN: Subj *Date: 04/02/17 *Time: 09:04 Interval history: Had an uneventful day yesterday; slept little due to nursing interventions. denies CP and SOB; minimal cough; eating well; has been up in the room without problems PICC line placed yesterday Exam Vital signs and Labs for Last 24 Hours: Temp Pulse Resp BP Pulse Ox 98.2 F 103 H 18 122/82 93 L 04/02/17 07:47 04/02/17 07:47 04/02/17 07:47 04/02/17 07:47 04/02/17 07:47 I & O for Last 24 hours: Intake & Output 03/30/17 03/31/17 04/01/17 04/02/17 11:59 11:59 11:59 11:59 Intake Total 1080 / 1080 4147 / 4147 1240 / 1240 730 / 730 Output Total 800 / 800 Balance 1080 / 1080 4147 / 4147 1240 / 1240 -70 / -70 Weight 197 lb 3.185 oz Microbiology Reports for the Last 24 Hours: Microbiology 03/28/17 15:55 Sputum - Expectorated Sputum Gram Stain - Final 03/28/17 15:55 Sputum - Expectorated Sputum Sputum Culture - Preliminary 03/28/17 12:00 Blood Blood Culture - Preliminary NO GROWTH AFTER 4 DAYS 03/28/17 12:00 Blood Blood Culture - Preliminary NO GROWTH AFTER 4 DAYS Radiology Reports for the Last 24 Hours: 04/01/16 CXR IMPRESSION New PICC line satisfactory position Right lung. Slight improvement pneumonic infiltrate right base & right midlung Left lung. Fairly Stable appearance with trace residual left perihilar extending towards left base. Left chest nearly to baseline. . less optimal inspiration also accentuates markings lung bases. On today's PCXR - Constitutional no acute distress - *Routine Respiratory Exam Absent: accessory muscle use Comments: bilateral basilar crackles > on the right - *Routine Cardiovascular Exam Present: RRR - *Routine Abdominal Exam Present: soft, normoactive bowel sounds. Absent: tenderness, distended, guarding - *Routine Extremities Exam Absent: edema, calf tenderness - *Routine Neurological Exam Present: alert, oriented X3 Assessment and Plan - Assessment and plan all Dx Assessment and Plan for all problems:: Plan is for patient to go home today and will return daily for IV ABX Patient seen and agree with above note - BTM
--- NOTE | 2017-04-02 09:07 | HMH.DCSUM ---
General - General Admission date: 03/28/17 <Eduardo Sosa - 04/02/17 09:17> Discharge date: 04/02/17 <Aga Berg - 04/03/17 11:02> HPI HPI: Mr. Ji is a 71yo male who has been seen numerous times in the office over the past month. His symptoms of cough, fever, SOA, and body aches began on 03/04/17. He was seen in the office on 03/06/17. His flu and strep test were negative and his CBC showed a viral pattern. A PCR respiratory swab was ordered and was negative. He had a CXR showing a right perihilar and RUL bronchopneumonia. He was started on cough medication. He was feeling worse by 03/09/17 and he went to the [facility] and received a rx for levaquin. He improved on the abx, but once he completed them, he began feeling poorly again and running fevers. He was seen again in the office on 03/20/17 with a normal flu test and CBC. D/t his symptoms and improvement on abx, he was started on another round of levaquin. He was seen in f/u on 03/22/17 and still felt poorly. He had another CXR showing persistent bronchopneumonia with a normal CBC. He was started on zithromax. He had a sputum that came back normal. He had another PCR respiratory panel that also came back normal. He was seen again on 03/25/17 and had another CXR showing, once again, a persistent pneumonia. He presented to the office again today still not feeling well and was admitted for further evaluation and treatment having failed outpatient therapy. <Eduardo Sosa - 04/02/17 09:17> Objective Vital signs: Temp Pulse Resp BP Pulse Ox 98.2 F 87 18 122/82 98 04/02/17 07:47 04/02/17 13:19 04/02/17 07:47 04/02/17 07:47 04/02/17 13:19 <Aga Berg - 04/03/17 11:48> Temp Pulse Resp BP Pulse Ox 98.2 F 103 H 18 122/82 93 L 04/02/17 07:47 04/02/17 07:47 04/02/17 07:47 04/02/17 07:47 04/02/17 07:47 <Eduardo Sosa - 04/02/17 09:17> Narrative: - Constitutional Comments: Does not appear to feel well - *Routine HEENT Exam Head: Present: normocephalic, atraumatic Eye: Present: EOMI, PERRL ENT: Present: mucous membranes moist, sinus tenderness - *Routine Neck Exam Present: supple, full ROM - *Routine Respiratory Exam Present: CTA bilaterally - *Routine Cardiovascular Exam Present: RRR - *Routine Abdominal Exam Present: soft, normoactive bowel sounds. Absent: tenderness - *Routine Extremities Exam Absent: edema - *Routine Skin Exam Present: intact - *Routine Neurological Exam Present: alert, oriented X3 <Aga Berg - 04/03/17 11:02> Hospital Course Hospital Course: The patient had a CT scan of the chest which showed bilateral pneumonia and some lymphadenopathy in chest. WBC count was elevated with predominance of Lymphocytes. Peripheral blood smear was ordered. Bun/Cr were elevated. He was started on IVF and IV antibiotics. He improved slowly. His pneumonia seemed to be responding to Invanz. A repeat CXR showed improvement in the pneumonia. He had a PICC line placed and was stable to be discharged home and will return daily for his IV abx. <Aga Berg - 04/03/17 11:50> Results Labs on day of discharge: Preliminary micro results at discharge 03/28/17 15:55 Sputum Culture - Preliminary Sputum - Expectorated Sputum 03/28/17 12:00 Blood Culture - Preliminary Blood NO GROWTH AFTER 4 DAYS 03/28/17 12:00 Blood Culture - Preliminary Blood NO GROWTH AFTER 4 DAYS <Eduardo Sosa - 04/02/17 09:17> DS: Diagnosis - Discharge Diagnosis (1) Bronchopneumonia Status: Acute (2) Coronary artery disease Status: Acute (3) Hypertension Status: Acute (4) Incomplete right bundle branch block Status: Acute (5) Lymphocytosis Status: Acute Problem details: Peripheral blood flow cytometry pending at time of discharge. (6) Presence of stent in right coronary artery Status: Acute (7) Sleep apnea Stat
--- NOTE | 2017-04-02 09:10 | P.DS_ITS ---
General - General Admission date: 03/28/17 <Eduardo Sosa - 04/02/17 09:17> Discharge date: 04/02/17 <Aga Berg - 04/03/17 11:02> HPI HPI: Mr. Ji is a 71yo male who has been seen numerous times in the office over the past month. His symptoms of cough, fever, SOA, and body aches began on . He was seen in the office on 03/06/17. His flu and strep test were negative and his CBC showed a viral pattern. A PCR respiratory swab was ordered and was negative. He had a CXR showing a right perihilar and RUL bronchopneumonia. He was started on cough medication. He was feeling worse by 03/09/17 and he went to the [facility] and received a rx for levaquin. He improved on the abx, but once he completed them, he began feeling poorly again and running fevers. He was seen again in the office on 03/20/17 with a normal flu test and CBC. D/t his symptoms and improvement on abx, he was started on another round of levaquin. He was seen in f/u on 03/22/17 and still felt poorly. He had another CXR showing persistent bronchopneumonia with a normal CBC. He was started on zithromax. He had a sputum that came back normal. He had another PCR respiratory panel that also came back normal. He was seen again on 03/25/17 and had another CXR showing, once again, a persistent pneumonia. He presented to the office again today still not feeling well and was admitted for further evaluation and treatment having failed outpatient therapy. <Eduardo Sosa - 04/02/17 09:17> Objective Vital signs: Temp Pulse Resp BP Pulse Ox 98.2 F 87 18 122/82 98 04/02/17 07:47 04/02/17 13:19 04/02/17 07:47 04/02/17 07:47 04/02/17 13:19 <Aga Berg - 04/03/17 11:48> Temp Pulse Resp BP Pulse Ox 98.2 F 103 H 18 122/82 93 L 04/02/17 07:47 04/02/17 07:47 04/02/17 07:47 04/02/17 07:47 04/02/17 07:47 <Eduardo Sosa - 04/02/17 09:17> Narrative: - Constitutional Comments: Does not appear to feel well - *Routine HEENT Exam Head: Present: normocephalic, atraumatic Eye: Present: EOMI, PERRL ENT: Present: mucous membranes moist, sinus tenderness - *Routine Neck Exam Present: supple, full ROM - *Routine Respiratory Exam Present: CTA bilaterally - *Routine Cardiovascular Exam Present: RRR - *Routine Abdominal Exam Present: soft, normoactive bowel sounds. Absent: tenderness - *Routine Extremities Exam Absent: edema - *Routine Skin Exam Present: intact - *Routine Neurological Exam Present: alert, oriented X3 <Aga Berg - 04/03/17 11:02> Hospital Course Hospital Course: The patient had a CT scan of the chest which showed bilateral pneumonia and some lymphadenopathy in chest. WBC count was elevated with predominance of Lymphocytes. Peripheral blood smear was ordered. Bun/Cr were elevated. He was started on IVF and IV antibiotics. He improved slowly. His pneumonia seemed to be responding to Invanz. A repeat CXR showed improvement in the pneumonia. He had a PICC line placed and was stable to be discharged home and will return daily for his IV abx. <Aga Berg - 04/03/17 11:50> Results Labs on day of discharge: Preliminary micro results at discharge 03/28/17 15:55 Sputum Culture - Preliminary Sputum - Expectorated Sputum 03/28/17 12:00 Blood Culture - Preliminary Blood NO GROWTH AFTER 4 DAYS 03/28/17 12:00 Blood Culture - Preliminary Blood
[2017-04-02 13:19] VITALS: PULSE 79; PULSE 87; O2SAT 98
--- NOTE | 2017-04-02 14:09 | PC.NURSE ---
Discharge teaching provided to patient. PICC line dressing changed today. PICC line is patent and flushes well. Denies any pain at this time. No sign or symptom of distress noted at this time. Patient states that he cannot leave until his son and daughter in law get off work today as they are his ride home because of the weather. This nurse told patient that, that is ok. Education given on signs and symptoms of infection and the importance of following up with their family doctor and making sure that they continue to come everyday for his IV ABT infusions.
== END 2017-04-02 16:09 | disposition home or self-care (01) | DRG 194 ==
PROVIDERS: Admitting Provider Family Medicine; Family Provider Family Medicine; PCP Family Medicine; Visit Provider Family Medicine
DX: J18.0 Bronchopneumonia, unspecified organism (principal); C92.00 Acute myeloblastic leukemia, not having achieved remission; I45.10 Unspecified right bundle-branch block; I10 Essential (primary) hypertension; I25.10 Atherosclerotic heart disease of native coronary artery without angina pectoris; Z95.5 Presence of coronary angioplasty implant and graft
CPT/HCPCS: 36569; 36415; 71045; 71046; 71275; 80048; 80053; 85007; 85025; 85060; 86140; 86738; 87040; 87070; 87205; 87275; 87276; 88184; 88185; 94640; 94668; 94760; 94761; C1751; J0456; J1335; Q9967

== ENCOUNTER 2017-04-03 13:06 | Outpatient (CLI) | payer MEDICARE, OTHER, SELFPAY ==
[2017-04-03 13:40] VITALS: BP 130/62; PULSE 71; RESP 20; TEMP 36.9; O2SAT 97
[2017-04-03 14:00] VITALS: BP 120/68; PULSE 63; RESP 18; TEMP 36.9; O2SAT 96
== END 2017-04-03 14:05 | disposition home or self-care (01) ==
LOC: INF 13:08
PROVIDERS: Family Provider Family Medicine; PCP Family Medicine; Visit Provider Family Medicine
DX: J18.0 Bronchopneumonia, unspecified organism (principal)
CPT/HCPCS: 96365; J1335

== ENCOUNTER 2017-04-30 08:41 | Outpatient (CLI) | payer MEDICARE, OTHER, SELFPAY ==
[2017-04-30] VITALS (10 sets, daily range): BP systolic 132–169; BP diastolic 68–81; PULSE 60–70; RESP 20; TEMP 36.1–37; O2SAT 96–98; BMI 28.4
[2017-04-30 11:30] LABS: Basophils % 0.4 % (0.1-2.0); Eosinophils % 0.4 % (0.1-12.0); Hematocrit 27.4 % (42.0-52.0); Hemoglobin 9.4 g/dL (14.1-18.0); Lymphocytes # 1.3 K/mm3 (0.7-4.5); Lymphocytes % 89.3 K/mm3 (10-50); Mean Corpuscular HGB Conc 34.1 g/dL (31.8-35.4); Mean Corpuscular Hemoglobin 32.5 pg (27.0-31.2); Mean Corpuscular Volume 95.2 fl (80-94); Mean Platelet Volume 8.1 fl (7.4-10.4); Monocytes # 0.1 K/mm3 (0.1-1.0); Monocytes % 6.6 % (1.7-9.3); Neutrophils # 0.1 K/mm3 (1.8-7.8); Red Blood Count 2.88 M/mm3 (4.60-6.20); Red Cell Distribution Width 17.7 % (11.5-17.5); White Blood Count 1.5 K/mm3 (4.8-10.8)
[2017-04-30 11:39] LABS: Alanine Aminotransferase 29 U/L (12-78); Albumin Level 2.9 gm/dL (3.4-5.0); Albumin/Globulin Ratio 0.7 (1.1-1.8); Alkaline Phosphatase 45 U/L (46-116); Anion Gap 9.5 mEq/L (5-15); Aspartate Amino Transferase 7 U/L (15-37); Bilirubin,Total 0.7 mg/dL (0.2-1.0); Blood Urea Nitrogen 18 mg/dL (7-18); Calcium 8.8 mg/dL (8.5-10.1); Carbon Dioxide 30 mmol/L (21.0-32.0); Chloride 106 mmol/L (98-107); Creatinine Clearance Estimated 85 mL/min (0-300); Creatinine,Serum 0.86 mg/dL (0.70-1.30); Estimated Glomerular Filt Rate 87 ml/min (>60); GFR (African American) 106 ML/MIN (>60); Globulin 3.9 gm/dl (1.3-3.2); Glucose 126 mg/dL (74-106); Potassium 3.5 mmoL/L (3.5-5.1); Sodium 142 mmol/L (136-145); Total Protein,Serum 6.8 gm/dL (6.4-8.2)
[2017-04-30 12:15] LABS: Neutrophils % 3.3 % (37.0-80.0)
[2017-04-30 12:16] LABS: Platelet Count 34 K/mm3 (142-424)
[2017-04-30 12:17] LABS: MANUAL DIFFERENTIAL MANUAL DIFFERENTIAL (MANUAL DIFF)
[2017-04-30 12:45] LABS: Lymphocytes % 80 % (10-50); Monocytes % 8 % (2-9); Platelet Estimate Marked Decrease; RBC Morphology Normal; Total Cells Counted 50
[2017-04-30 18:13] LABS: Platelet Count 68 K/mm3 (142-424)
== END 2017-04-30 18:34 | disposition home or self-care (01) ==
LOC: INF 08:42
PROVIDERS: Visit Provider Internal Medicine
DX: C92.00 Acute myeloblastic leukemia, not having achieved remission (principal)
CPT/HCPCS: 36430; 80053; 85007; 85025; 85049; 86900; 86901; P9034

== ENCOUNTER 2017-05-01 10:46 | Outpatient (CLI) | payer MEDICARE, OTHER, SELFPAY ==
[2017-05-01 11:10] VITALS: BMI 28.3
[2017-05-01 11:38] LABS: Basophils % 0.3 % (0.1-2.0); Eosinophils % 2.2 % (0.1-12.0); Lymphocytes # 1.4 K/mm3 (0.7-4.5); Mean Corpuscular HGB Conc 34.7 g/dL (31.8-35.4); Mean Platelet Volume 7.6 fl (7.4-10.4); Monocytes # 0.1 K/mm3 (0.1-1.0); Monocytes % 5.4 % (1.7-9.3); Platelet Count 63 K/mm3 (142-424); Red Blood Count 2.74 M/mm3 (4.60-6.20); Red Cell Distribution Width 17.3 % (11.5-17.5); White Blood Count 1.6 K/mm3 (4.8-10.8)
[2017-05-01 12:03] LABS: MANUAL DIFFERENTIAL MANUAL DIFFERENTIAL (MANUAL DIFF)
[2017-05-01 12:08] LABS: Lymphocytes % 74 % (10-50); Monocytes % 20 % (2-9); Platelet Estimate Moderate Decrease; Total Cells Counted 50
[2017-05-01 12:10] LABS: Hypochromasia 1+
[2017-05-01 12:35] VITALS: TEMP 37.1
== END 2017-05-01 12:35 | disposition home or self-care (01) ==
LOC: INF 10:47
PROVIDERS: Visit Provider Internal Medicine
DX: C92.00 Acute myeloblastic leukemia, not having achieved remission (principal)
CPT/HCPCS: 85007; 85025

== ENCOUNTER 2017-05-03 08:50 | Outpatient (CLI) | payer MEDICARE, OTHER, SELFPAY ==
[2017-05-03] VITALS (17 sets, daily range): BP systolic 137–163; BP diastolic 67–85; PULSE 58–64; RESP 16–18; TEMP 36.5–37.2; O2SAT 93; BMI 28.3
[2017-05-03 09:39] LABS: White Blood Count 2.1 K/mm3 (4.8-10.8)
[2017-05-03 09:41] LABS: Hematocrit 25.9 % (42.0-52.0); Hemoglobin 8.8 g/dL (14.1-18.0); Mean Corpuscular HGB Conc 34.1 g/dL (31.8-35.4); Mean Corpuscular Hemoglobin 32.3 pg (27.0-31.2); Mean Corpuscular Volume 94.5 fl (80-94); Mean Platelet Volume 8.3 fl (7.4-10.4); Red Blood Count 2.74 M/mm3 (4.60-6.20); Red Cell Distribution Width 16.9 % (11.5-17.5)
[2017-05-03 09:42] LABS: Neutrophils % 4.5 % (37.0-80.0)
[2017-05-03 09:43] LABS: Basophils % 0.5 % (0.1-2.0); Lymphocytes # 1.8 K/mm3 (0.7-4.5); Monocytes # 0.2 K/mm3 (0.1-1.0); Neutrophils # 0.1 K/mm3 (1.8-7.8)
[2017-05-03 09:56] LABS: Platelet Count 29 K/mm3 (142-424)
[2017-05-03 09:57] LABS: MANUAL DIFFERENTIAL MANUAL DIFFERENTIAL (MANUAL DIFF)
[2017-05-03 10:12] LABS: Lymphocytes % 82 % (10-50); Neutrophils % 7 % (42-76); Total Cells Counted 100
[2017-05-03 10:13] LABS: Hypochromasia 1+
[2017-05-03 10:14] LABS: Platelet Estimate Marked Dec
--- NOTE | 2017-05-03 11:59 | PC.NURSE ---
1155-rate set at 100 ml/hr at this time
--- NOTE | 2017-05-03 14:42 | PC.NURSE ---
1225 - INCREASED RATE TO 150 ML/HR AT THIS TIME
--- NOTE | 2017-05-03 14:46 | PC.NURSE ---
1255 - INCREASED RATE TO 200 ML/HR AT THIS TIME
[2017-05-03 16:15] LABS: Hematocrit 26.7 % (42.0-52.0); Hemoglobin 9.3 g/dL (14.1-18.0)
[2017-05-03 16:17] LABS: Platelet Count 55 K/mm3 (142-424)
--- NOTE | 2017-05-03 16:49 | PC.NURSE ---
1548 - 1 HR POST PLT COUNT DRAWN FROM PICC LINE AT THIS TIME.
--- NOTE | 2017-05-03 17:04 | PC.NURSE ---
1015 - RECEIVED ORDERS FROM DR ÁLVAREZ TO TYPE AND CROSSMATCH FOR 2 UNITS PRBC'S AND 1 UNIT PLT'S. TRANSFUSE 1 UNIT PRBC'S TODAY AND 1 UNIT TOMORROW. TRANSFUSE 1 UNIT PLT'S TODAY.
== END 2017-05-03 16:30 | disposition home or self-care (01) ==
LOC: INF 09:01
PROVIDERS: Family Provider Family Medicine; Visit Provider Internal Medicine
DX: C92.00 Acute myeloblastic leukemia, not having achieved remission (principal)
CPT/HCPCS: 36430; 85007; 85014; 85018; 85025; 85049; 86850; P9016; P9034

== ENCOUNTER 2017-05-04 08:59 | Outpatient (CLI) | payer MEDICARE, OTHER, SELFPAY ==
[2017-05-04] VITALS (12 sets, daily range): BP systolic 111–149; BP diastolic 52–66; PULSE 57–64; RESP 18–20; TEMP 36.4–37.1; O2SAT 95–99; BMI 27.0
[2017-05-04 11:14] LABS: Basophils % 0.3 % (0.1-2.0); Eosinophils % 0.2 % (0.1-12.0); Hematocrit 28.3 % (42.0-52.0); Hemoglobin 9.7 g/dL (14.1-18.0); Lymphocytes # 1.9 K/mm3 (0.7-4.5); Lymphocytes % 83.7 K/mm3 (10-50); Mean Corpuscular HGB Conc 34.2 g/dL (31.8-35.4); Mean Corpuscular Hemoglobin 32.1 pg (27.0-31.2); Mean Corpuscular Volume 93.8 fl (80-94); Mean Platelet Volume 7.7 fl (7.4-10.4); Monocytes # 0.2 K/mm3 (0.1-1.0); Monocytes % 9.3 % (1.7-9.3); Neutrophils # 0.2 K/mm3 (1.8-7.8); Platelet Count 59 K/mm3 (142-424); Red Blood Count 3.01 M/mm3 (4.60-6.20); Red Cell Distribution Width 16.8 % (11.5-17.5); White Blood Count 2.3 K/mm3 (4.8-10.8)
[2017-05-04 11:30] LABS: Neutrophils % 6.5 % (37.0-80.0)
[2017-05-04 11:32] LABS: MANUAL DIFFERENTIAL MANUAL DIFFERENTIAL (MANUAL DIFF)
[2017-05-04 12:15] LABS: Lymphocytes % 72 % (10-50); Monocytes % 12 % (2-9); Myelocytes % 2 (0-1); Neutrophils % 6 % (42-76); Platelet Estimate Moderate Decrease; Total Cells Counted 50
[2017-05-04 12:16] LABS: Anisocytosis 1+; Poikilocytosis 1+
--- NOTE | 2017-05-04 13:06 | PC.NURSE ---
per written request from Infusion nurses. Florence gibbs rn was contacted with lab results for pt. ANDRESSA gibbs contacted dr Molina for further orders. per md have pt return on 05/05 for follow up plt count and possible transfusion. rn on 05/05 to contact iliana gibbs rn again .pt aware of need to return following day for more blood work and possible transfusion.
== END 2017-05-04 13:00 | disposition home or self-care (01) ==
LOC: INF 09:01
PROVIDERS: Family Provider Family Medicine; Visit Provider Internal Medicine
DX: C92.00 Acute myeloblastic leukemia, not having achieved remission (principal)
CPT/HCPCS: 36430; 85007; 85014; 85018; 85025; P9016

== ENCOUNTER → 2017-05-05 09:08 | Outpatient (CLI) | payer MEDICARE, OTHER, SELFPAY ==
[2017-05-05] VITALS (8 sets, daily range): BP systolic 141–170; BP diastolic 69–82; PULSE 55–67; RESP 18; TEMP 36.4–36.9; O2SAT 95–98; BMI 270116.5
[2017-05-05 09:31] LABS: Basophils % 0.1 % (0.1-2.0); Eosinophils % 0.3 % (0.1-12.0); Hematocrit 29.9 % (42.0-52.0); Hemoglobin 10.1 g/dL (14.1-18.0); Lymphocytes # 2.1 K/mm3 (0.7-4.5); Lymphocytes % 81.9 K/mm3 (10-50); Mean Corpuscular HGB Conc 33.9 g/dL (31.8-35.4); Mean Corpuscular Hemoglobin 31.5 pg (27.0-31.2); Mean Corpuscular Volume 92.8 fl (80-94); Monocytes # 0.2 K/mm3 (0.1-1.0); Monocytes % 9.5 % (1.7-9.3); Neutrophils # 0.2 K/mm3 (1.8-7.8); Red Blood Count 3.22 M/mm3 (4.60-6.20); Red Cell Distribution Width 16.5 % (11.5-17.5); White Blood Count 2.5 K/mm3 (4.8-10.8)
[2017-05-05 09:35] LABS: Neutrophils % 8.2 % (37.0-80.0); Platelet Count 36 K/mm3 (142-424)
[2017-05-05 09:36] LABS: MANUAL DIFFERENTIAL MANUAL DIFFERENTIAL (MANUAL DIFF)
[2017-05-05 09:56] LABS: Lymphocytes % 64 % (10-50); Monocytes % 22 % (2-9); Neutrophils % 2 % (42-76); Nucleated Red Blood Cells 1; Platelet Estimate Marked Decrease; Schistocytes 1+; Tear Drop Cells 1+; Total Cells Counted 50
--- NOTE | 2017-05-05 10:46 | PC.NURSE ---
notified Willie Gibbs rn at 0937 of pt wbc 2.5 plt 36 and h/h 10.1/29.9. Willie notified dr hilton of pt labs. per order from dr hilton nurse willie gibbs rn. order received at 1040. pt is to receive 1 unit of platelets. spoke with the [facility]. pt crossmatch for platelets is still active. platelets to be ordered from [facility] and delivered. expected turnaround is 4 hours. pt to be notified and to return when platelets available.
--- NOTE | 2017-05-05 14:10 | PC.NURSE ---
checked status on platelets. not available at this time. lab anticipates another 2.5-3 hrs before platelets arrive and are ready for transfusion.
[2017-05-05 19:13] LABS: Platelet Count 64 K/mm3 (142-424)
== END ==
PROVIDERS: Visit Provider Internal Medicine
DX: C92.00 Acute myeloblastic leukemia, not having achieved remission (principal)
CPT/HCPCS: 36430; 85007; 85025; 85049; P9034

== ENCOUNTER 2017-05-07 08:55 | Outpatient (CLI) | payer MEDICARE, OTHER, SELFPAY ==
[2017-05-07 08:59] VITALS: BMI 28.3
[2017-05-07 09:25] LABS: Basophils % 0.4 % (0.1-2.0); Eosinophils % 0.4 % (0.1-12.0); Hemoglobin 9.9 g/dL (14.1-18.0); Lymphocytes # 1.9 K/mm3 (0.7-4.5); Lymphocytes % 78.4 K/mm3 (10-50); Mean Corpuscular HGB Conc 34.3 g/dL (31.8-35.4); Mean Corpuscular Hemoglobin 31.4 pg (27.0-31.2); Mean Corpuscular Volume 91.4 fl (80-94); Mean Platelet Volume 7.6 fl (7.4-10.4); Monocytes # 0.3 K/mm3 (0.1-1.0); Monocytes % 12.4 % (1.7-9.3); Neutrophils # 0.2 K/mm3 (1.8-7.8); Red Blood Count 3.17 M/mm3 (4.60-6.20); Red Cell Distribution Width 16.3 % (11.5-17.5); White Blood Count 2.5 K/mm3 (4.8-10.8)
[2017-05-07 09:30] LABS: Neutrophils % 8.4 % (37.0-80.0); Platelet Count 41 K/mm3 (142-424)
[2017-05-07 09:31] LABS: MANUAL DIFFERENTIAL MANUAL DIFFERENTIAL (MANUAL DIFF)
[2017-05-07 10:00] LABS: Lymphocytes % 76 % (10-50); Monocytes % 18 % (2-9); Neutrophils % 6 % (42-76); Nucleated Red Blood Cells 2; Total Cells Counted 50
[2017-05-07 10:01] LABS: Platelet Estimate Marked Decrease; RBC Morphology Normal
== END 2017-05-07 09:30 | disposition home or self-care (01) ==
LOC: INF 09:03
PROVIDERS: Family Provider Family Medicine; Visit Provider Internal Medicine
DX: C92.00 Acute myeloblastic leukemia, not having achieved remission (principal)
CPT/HCPCS: 85007; 85025; G0463

== ENCOUNTER 2017-05-09 08:57 | Outpatient (CLI) | payer MEDICARE, OTHER, SELFPAY ==
[2017-05-09 09:01] VITALS: BMI 28.3
[2017-05-09 09:10] LABS: Basophils % 0.6 % (0.1-2.0); Eosinophils % 0.5 % (0.1-12.0); Hematocrit 29.5 % (42.0-52.0); Hemoglobin 10.1 g/dL (14.1-18.0); Lymphocytes % 76.8 K/mm3 (10-50); Mean Corpuscular HGB Conc 34.3 g/dL (31.8-35.4); Mean Corpuscular Hemoglobin 31.9 pg (27.0-31.2); Mean Corpuscular Volume 93.2 fl (80-94); Mean Platelet Volume 8.8 fl (7.4-10.4); Monocytes # 0.5 K/mm3 (0.1-1.0); Monocytes % 11.7 % (1.7-9.3); Neutrophils # 0.4 K/mm3 (1.8-7.8); Red Blood Count 3.17 M/mm3 (4.60-6.20); Red Cell Distribution Width 16.8 % (11.5-17.5)
[2017-05-09 09:33] LABS: Neutrophils % 10.4 % (37.0-80.0); Platelet Count 30 K/mm3 (142-424)
[2017-05-09 09:39] LABS: MANUAL DIFFERENTIAL MANUAL DIFFERENTIAL (MANUAL DIFF)
[2017-05-09 10:37] LABS: Lymphocytes % 68 % (10-50); Monocytes % 13 % (2-9); Neutrophils % 12 % (42-76); Total Cells Counted 100
[2017-05-09 10:38] LABS: Platelet Estimate Marked Decrease; RBC Morphology Normal
== END 2017-05-09 10:00 | disposition home or self-care (01) ==
LOC: INF 08:57
PROVIDERS: Family Provider Family Medicine; Visit Provider Internal Medicine
DX: C92.00 Acute myeloblastic leukemia, not having achieved remission (principal); Z45.2 Encounter for adjustment and management of vascular access device
CPT/HCPCS: 85007; 85025

== ENCOUNTER → 2017-05-11 09:00 | Outpatient (CLI) | payer MEDICARE, OTHER, SELFPAY ==
[2017-05-11 09:33] VITALS: BP 128/62; PULSE 64; RESP 20; TEMP 36.9; O2SAT 96; BMI 26.9
[2017-05-11 09:52] LABS: Basophils % 0.2 % (0.1-2.0); Eosinophils # 0.1 K/mm3 (0.0-0.4); Eosinophils % 1.1 % (0.1-12.0); Hematocrit 30.2 % (42.0-52.0); Hemoglobin 10.2 g/dL (14.1-18.0); Lymphocytes # 4.5 K/mm3 (0.7-4.5); Lymphocytes % 77.1 K/mm3 (10-50); Mean Corpuscular HGB Conc 33.6 g/dL (31.8-35.4); Mean Corpuscular Hemoglobin 31.2 pg (27.0-31.2); Mean Corpuscular Volume 92.9 fl (80-94); Mean Platelet Volume 9.5 fl (7.4-10.4); Monocytes # 0.7 K/mm3 (0.1-1.0); Monocytes % 12.2 % (1.7-9.3); Neutrophils # 0.6 K/mm3 (1.8-7.8); Red Blood Count 3.25 M/mm3 (4.60-6.20); Red Cell Distribution Width 16.7 % (11.5-17.5); White Blood Count 5.8 K/mm3 (4.8-10.8)
[2017-05-11 09:55] LABS: Neutrophils % 9.5 % (37.0-80.0); Platelet Count 30 K/mm3 (142-424)
[2017-05-11 09:56] LABS: MANUAL DIFFERENTIAL MANUAL DIFFERENTIAL (MANUAL DIFF)
[2017-05-11 15:42] LABS: Lymphocytes % 76 % (10-50); Monocytes % 20 % (2-9); Neutrophils % 4 % (42-76); Platelet Estimate Marked Decrease; RBC Morphology Normal; Total Cells Counted 100
== END ==
PROVIDERS: Family Provider Family Medicine; PCP Family Medicine; Visit Provider Internal Medicine
DX: C92.00 Acute myeloblastic leukemia, not having achieved remission (principal); Z45.2 Encounter for adjustment and management of vascular access device
CPT/HCPCS: 85007; 85025; G0463

== ENCOUNTER 2017-05-13 09:05 | Outpatient (CLI) | payer MEDICARE, OTHER, SELFPAY ==
[2017-05-13 09:14] VITALS: BMI 26.9
[2017-05-13 09:21] LABS: Basophils % 0.3 % (0.1-2.0); Eosinophils # 0.1 K/mm3 (0.0-0.4); Eosinophils % 1.8 % (0.1-12.0); Hematocrit 28.6 % (42.0-52.0); Hemoglobin 9.6 g/dL (14.1-18.0); Lymphocytes # 2.9 K/mm3 (0.7-4.5); Lymphocytes % 75.1 K/mm3 (10-50); Mean Corpuscular HGB Conc 33.4 g/dL (31.8-35.4); Mean Corpuscular Hemoglobin 31.5 pg (27.0-31.2); Mean Corpuscular Volume 94.3 fl (80-94); Monocytes # 0.4 K/mm3 (0.1-1.0); Monocytes % 9.8 % (1.7-9.3); Neutrophils # 0.5 K/mm3 (1.8-7.8); Red Blood Count 3.03 M/mm3 (4.60-6.20); Red Cell Distribution Width 16.5 % (11.5-17.5); White Blood Count 3.8 K/mm3 (4.8-10.8)
[2017-05-13 09:24] LABS: Platelet Count 50 K/mm3 (142-424)
[2017-05-13 09:25] LABS: MANUAL DIFFERENTIAL MANUAL DIFFERENTIAL (MANUAL DIFF)
[2017-05-13 09:46] LABS: Eosinophils % 2 % (0-3); Lymphocytes % 70 % (10-50); Monocytes % 18 % (2-9); Neutrophils % 9 % (42-76); Platelet Estimate Marked Decrease; RBC Morphology Normal; Total Cells Counted 100
== END 2017-05-13 09:51 | disposition home or self-care (01) ==
LOC: INF 09:19
PROVIDERS: Family Provider Family Medicine; PCP Family Medicine; Visit Provider Internal Medicine
DX: C92.00 Acute myeloblastic leukemia, not having achieved remission (principal)
CPT/HCPCS: 85007; 85025; G0463

== ENCOUNTER 2017-05-15 09:03 | Outpatient (CLI) | payer MEDICARE, OTHER, SELFPAY ==
[2017-05-15 09:05] VITALS: BMI 28.3
--- NOTE | 2017-05-15 09:29 | PC.NURSE ---
pt here today for labs as ordered per md. pt has picc line to [facility]. picc accessed and flushed, + blood return noted. blood drawn for labs and sent to lab for analysis. picc care performed 2 days prior to today, manav noted cdi.
[2017-05-15 09:38] LABS: Basophils % 0.2 % (0.1-2.0); Eosinophils # 0.1 K/mm3 (0.0-0.4); Eosinophils % 2.2 % (0.1-12.0); Hematocrit 28.3 % (42.0-52.0); Hemoglobin 9.4 g/dL (14.1-18.0); Lymphocytes # 2.9 K/mm3 (0.7-4.5); Lymphocytes % 73.5 K/mm3 (10-50); Mean Corpuscular HGB Conc 33.3 g/dL (31.8-35.4); Mean Corpuscular Hemoglobin 31.2 pg (27.0-31.2); Mean Corpuscular Volume 93.5 fl (80-94); Mean Platelet Volume 9.6 fl (7.4-10.4); Monocytes # 0.4 K/mm3 (0.1-1.0); Neutrophils # 0.6 K/mm3 (1.8-7.8); Platelet Count 103 K/mm3 (142-424); Red Blood Count 3.03 M/mm3 (4.60-6.20); Red Cell Distribution Width 16.4 % (11.5-17.5)
[2017-05-15 09:54] LABS: MANUAL DIFFERENTIAL MANUAL DIFFERENTIAL (MANUAL DIFF)
[2017-05-15 10:04] VITALS: TEMP 36.8
[2017-05-15 10:43] LABS: Lymphocytes % 77 % (10-50); Monocytes % 5 % (2-9); Neutrophils % 15 % (42-76); Platelet Estimate Slight Decrease; Total Cells Counted 100
[2017-05-15 10:44] LABS: Anisocytosis 1+
== END 2017-05-15 10:16 | disposition home or self-care (01) ==
LOC: INF 09:03
PROVIDERS: Family Provider Family Medicine; PCP Family Medicine; Visit Provider Internal Medicine
DX: C92.00 Acute myeloblastic leukemia, not having achieved remission (principal); Z45.2 Encounter for adjustment and management of vascular access device
CPT/HCPCS: 85007; 85025

== ENCOUNTER 2017-05-20 08:30 | Outpatient (CLI) | payer MEDICARE, OTHER, SELFPAY ==
[2017-05-20] VITALS (18 sets, daily range): BP systolic 102–133; BP diastolic 50–75; PULSE 54–69; RESP 16–18; TEMP 36.4–36.9; BMI 26.9
[2017-05-20 08:53] LABS: Basophils % 0.4 % (0.1-2.0); Eosinophils # 0.1 K/mm3 (0.0-0.4); Eosinophils % 1.3 % (0.1-12.0); Hemoglobin 8.6 g/dL (14.1-18.0); Lymphocytes # 3.4 K/mm3 (0.7-4.5); Lymphocytes % 72.8 K/mm3 (10-50); Mean Corpuscular HGB Conc 33.1 g/dL (31.8-35.4); Mean Corpuscular Hemoglobin 31.7 pg (27.0-31.2); Mean Corpuscular Volume 95.7 fl (80-94); Mean Platelet Volume 10.2 fl (7.4-10.4); Monocytes # 0.3 K/mm3 (0.1-1.0); Neutrophils # 0.9 K/mm3 (1.8-7.8); Neutrophils % 18.5 % (37.0-80.0); Platelet Count 154 K/mm3 (142-424); Red Blood Count 2.72 M/mm3 (4.60-6.20); Red Cell Distribution Width 16.4 % (11.5-17.5); White Blood Count 4.6 K/mm3 (4.8-10.8)
[2017-05-20 08:56] LABS: MANUAL DIFFERENTIAL MANUAL DIFFERENTIAL (MANUAL DIFF)
[2017-05-20 09:11] LABS: Alanine Aminotransferase 23 U/L (12-78); Albumin Level 2.8 gm/dL (3.4-5.0); Albumin/Globulin Ratio 0.7 (1.1-1.8); Alkaline Phosphatase 46 U/L (46-116); Anion Gap 2.8 mEq/L (5-15); Aspartate Amino Transferase 8 U/L (15-37); Bilirubin,Total 0.4 mg/dL (0.2-1.0); Blood Urea Nitrogen 23 mg/dL (7-18); Calcium 8.9 mg/dL (8.5-10.1); Carbon Dioxide 30 mmol/L (21.0-32.0); Chloride 105 mmol/L (98-107); Creatinine Clearance Estimated 81 mL/min (0-300); Creatinine,Serum 0.92 mg/dL (0.70-1.30); Estimated Glomerular Filt Rate 81 ml/min (>60); GFR (African American) 98 ML/MIN (>60); Globulin 4.1 gm/dl (1.3-3.2); Glucose 146 mg/dL (74-106); Potassium 3.8 mmoL/L (3.5-5.1); Sodium 134 mmol/L (136-145); Total Protein,Serum 6.9 gm/dL (6.4-8.2)
[2017-05-20 09:24] LABS: Eosinophils % 2 % (0-3); Lymphocytes % 63 % (10-50); Monocytes % 6 % (2-9); Neutrophils % 23 % (42-76); Total Cells Counted 100
[2017-05-20 09:34] LABS: Hypochromasia 2+
[2017-05-20 09:36] LABS: Poikilocytosis 1+; Schistocytes 1+
[2017-05-20 09:37] LABS: Platelet Estimate Normal
--- NOTE | 2017-05-20 11:51 | PC.NURSE ---
1145- BLOOD TRANSFUSION STARTED AT THIS TIME AT 100 ML/HR.
--- NOTE | 2017-05-20 12:23 | PC.NURSE ---
1215- INCREASED RATE TO 150 ML/HR AT THIS TIME.
--- NOTE | 2017-05-20 13:40 | PC.NURSE ---
1230- PT EATING LUNCH AT THIS TIME.
--- NOTE | 2017-05-20 13:42 | PC.NURSE ---
1245- INCREASED RATE TO 200 ML/HR AT THIS TIME.
--- NOTE | 2017-05-20 14:05 | PC.NURSE ---
1405- BLOOD TRANSFUSION STARTED AT 100ML/HR AT THIS TIME.
--- NOTE | 2017-05-20 15:25 | PC.NURSE ---
1435- INCREASED RATE TO 150 ML/HR AT THIS TIME.
--- NOTE | 2017-05-20 15:29 | PC.NURSE ---
1450- INCREASED RATE TO 200 ML/HR AT THIS TIME
--- NOTE | 2017-05-20 16:26 | PC.NURSE ---
1620- 30 MIN. POST BLOOD TRANSFUSION VITALS DONE AT THIS TIME. DR ÁLVAREZ GAVE ORDERS TO DISCHARGE 30 MIN. POST TRANSFUSION. CBC TO BE RECHECKED IN THE AM.
== END 2017-05-20 16:25 | disposition home or self-care (01) ==
LOC: INF 08:36
PROVIDERS: Family Provider Family Medicine; PCP Family Medicine; Visit Provider Internal Medicine
DX: C92.00 Acute myeloblastic leukemia, not having achieved remission (principal); Z51.11 Encounter for antineoplastic chemotherapy
CPT/HCPCS: 36430; 80053; 85007; 85025; 86850; P9016

== ENCOUNTER 2017-05-21 08:35 | Outpatient (CLI) | payer MEDICARE, OTHER, SELFPAY ==
[2017-05-21 08:47] VITALS: BMI 27.2
[2017-05-21 09:04] LABS: Basophils % 0.3 % (0.1-2.0); Eosinophils # 0.1 K/mm3 (0.0-0.4); Eosinophils % 1.8 % (0.1-12.0); Hematocrit 30.6 % (42.0-52.0); Hemoglobin 10.2 g/dL (14.1-18.0); Lymphocytes % 68.4 K/mm3 (10-50); Mean Corpuscular HGB Conc 33.2 g/dL (31.8-35.4); Mean Corpuscular Hemoglobin 31.3 pg (27.0-31.2); Mean Corpuscular Volume 94.3 fl (80-94); Mean Platelet Volume 9.9 fl (7.4-10.4); Monocytes # 0.3 K/mm3 (0.1-1.0); Monocytes % 7.7 % (1.7-9.3); Neutrophils # 0.9 K/mm3 (1.8-7.8); Neutrophils % 21.7 % (37.0-80.0); Platelet Count 133 K/mm3 (142-424); Red Blood Count 3.24 M/mm3 (4.60-6.20); Red Cell Distribution Width 16.3 % (11.5-17.5); White Blood Count 4.3 K/mm3 (4.8-10.8)
[2017-05-21 09:10] LABS: MANUAL DIFFERENTIAL MANUAL DIFFERENTIAL (MANUAL DIFF)
[2017-05-21 10:02] LABS: Lymphocytes % 61 % (10-50); Monocytes % 5 % (2-9); Neutrophils % 27 % (42-76); Total Cells Counted 100
[2017-05-21 10:03] LABS: Platelet Estimate Slight Decrease
[2017-05-21 10:04] LABS: Poikilocytosis 1+
[2017-05-21 10:05] LABS: Hypochromasia 1+
[2017-05-21 10:10] VITALS: BP 122/68; PULSE 58; RESP 20; TEMP 36.4; O2SAT 97
[2017-05-21 10:25] VITALS: BP 101/67; PULSE 59; RESP 20; O2SAT 96
[2017-05-21 10:40] VITALS: BP 116/64; PULSE 61; RESP 20; O2SAT 97
[2017-05-21 10:55] VITALS: BP 109/61; PULSE 59; RESP 20; O2SAT 97
[2017-05-21 11:10] VITALS: BP 96/57; PULSE 59; RESP 20; O2SAT 96
[2017-05-21 11:20] VITALS: BP 105/54; PULSE 60; RESP 20; TEMP 36.7; O2SAT 97
== END 2017-05-21 11:20 | disposition home or self-care (01) ==
LOC: INF 08:42
PROVIDERS: Family Provider Family Medicine; PCP Family Medicine; Visit Provider Internal Medicine
DX: Z51.11 Encounter for antineoplastic chemotherapy (principal); C92.00 Acute myeloblastic leukemia, not having achieved remission
CPT/HCPCS: 85007; 85025; 96413; J0894

== ENCOUNTER 2017-05-22 08:30 | Outpatient (CLI) | payer MEDICARE, OTHER, SELFPAY ==
[2017-05-22 08:44] VITALS: BMI 27.2
[2017-05-22 08:58] LABS: Basophils % 0.2 % (0.1-2.0); Eosinophils # 0.1 K/mm3 (0.0-0.4); Eosinophils % 1.4 % (0.1-12.0); Hematocrit 31.5 % (42.0-52.0); Hemoglobin 10.4 g/dL (14.1-18.0); Lymphocytes # 2.1 K/mm3 (0.7-4.5); Lymphocytes % 45.1 K/mm3 (10-50); Mean Corpuscular Volume 93.9 fl (80-94); Mean Platelet Volume 9.8 fl (7.4-10.4); Monocytes # 0.6 K/mm3 (0.1-1.0); Monocytes % 12.8 % (1.7-9.3); Neutrophils # 1.9 K/mm3 (1.8-7.8); Neutrophils % 40.4 % (37.0-80.0); Platelet Count 139 K/mm3 (142-424); Red Blood Count 3.35 M/mm3 (4.60-6.20); Red Cell Distribution Width 16.1 % (11.5-17.5); White Blood Count 4.7 K/mm3 (4.8-10.8)
--- NOTE | 2017-05-22 09:50 | PC.NURSE ---
0845: Called Dr. Gonzalez to go over blood work (CBC). Pt has been c/o neck pain. Described as a stiff neck. Patient talked to Dr. Gonzalez on the phone about his neck. 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 Dr. Gonzalez states it is still ok to give chemo today per MD order. Dr. Yi office paged, waiting insulation technician back
--- NOTE | 2017-05-22 10:07 | PC.NURSE ---
Florence Isabel RN on phone with Dr. Yi's office. Nurse Practitioner wants patient to go to ER for further evaluation.
--- NOTE | 2017-05-22 10:26 | PC.NURSE ---
Called and spoke with [facility] ER charge nurse Pinky, given them info on this patient being sent for further evaluation. CBC given to pt/family for [facility].
[2017-05-22 10:40] VITALS: BP 141/71; PULSE 65; RESP 18; TEMP 37.5
== END 2017-05-22 10:40 | disposition short-term general hospital (02) ==
LOC: INF 08:43
PROVIDERS: Family Provider Family Medicine; PCP Family Medicine; Visit Provider Internal Medicine
DX: Z51.11 Encounter for antineoplastic chemotherapy (principal); C92.00 Acute myeloblastic leukemia, not having achieved remission
CPT/HCPCS: 85025; G0463

== ENCOUNTER 2017-05-23 08:54 | Outpatient (CLI) | payer MEDICARE, OTHER, SELFPAY ==
[2017-05-23 08:46] VITALS: BMI 27.2
[2017-05-23 08:56] LABS: Basophils % 0.2 % (0.1-2.0); Eosinophils # 0.1 K/mm3 (0.0-0.4); Eosinophils % 0.8 % (0.1-12.0); Hematocrit 31.6 % (42.0-52.0); Hemoglobin 10.4 g/dL (14.1-18.0); Lymphocytes # 3.2 K/mm3 (0.7-4.5); Lymphocytes % 47.5 K/mm3 (10-50); Mean Corpuscular HGB Conc 32.8 g/dL (31.8-35.4); Mean Corpuscular Volume 94.7 fl (80-94); Mean Platelet Volume 10.3 fl (7.4-10.4); Monocytes # 0.7 K/mm3 (0.1-1.0); Monocytes % 10.6 % (1.7-9.3); Neutrophils # 2.7 K/mm3 (1.8-7.8); Platelet Count 133 K/mm3 (142-424); Red Blood Count 3.33 M/mm3 (4.60-6.20); Red Cell Distribution Width 16.3 % (11.5-17.5); White Blood Count 6.6 K/mm3 (4.8-10.8)
[2017-05-23 09:40] VITALS: BP 125/63; PULSE 68; RESP 18; TEMP 36.8
[2017-05-23 09:55] VITALS: BP 120/66; PULSE 66; RESP 16
[2017-05-23 10:10] VITALS: BP 129/66; PULSE 67; RESP 16
[2017-05-23 10:25] VITALS: BP 119/65; PULSE 64; RESP 16
[2017-05-23 10:40] VITALS: BP 127/66; PULSE 63; RESP 16; TEMP 37.1
== END 2017-05-23 11:00 | disposition home or self-care (01) ==
LOC: INF 08:54
PROVIDERS: Family Provider Family Medicine; PCP Family Medicine; Visit Provider Internal Medicine
DX: Z51.11 Encounter for antineoplastic chemotherapy (principal); C92.00 Acute myeloblastic leukemia, not having achieved remission
CPT/HCPCS: 85025; 96413; J0894

== ENCOUNTER 2017-05-27 08:10 | Outpatient (CLI) | payer MEDICARE, OTHER, SELFPAY ==
[2017-05-27 08:20] VITALS: BP 125/69; PULSE 68; RESP 20; TEMP 37.1; O2SAT 86
[2017-05-27 09:12] VITALS: BMI 27.1
[2017-05-27 09:31] LABS: Basophils % 0.1 % (0.1-2.0); Eosinophils # 0.1 K/mm3 (0.0-0.4); Hematocrit 26.7 % (42.0-52.0); Hemoglobin 8.9 g/dL (14.1-18.0); Lymphocytes # 2.3 K/mm3 (0.7-4.5); Lymphocytes % 37.6 K/mm3 (10-50); Mean Corpuscular HGB Conc 33.2 g/dL (31.8-35.4); Mean Corpuscular Hemoglobin 31.1 pg (27.0-31.2); Mean Corpuscular Volume 93.7 fl (80-94); Mean Platelet Volume 9.4 fl (7.4-10.4); Monocytes # 0.5 K/mm3 (0.1-1.0); Monocytes % 8.5 % (1.7-9.3); Neutrophils # 3.3 K/mm3 (1.8-7.8); Neutrophils % 52.7 % (37.0-80.0); Platelet Count 124 K/mm3 (142-424); Red Blood Count 2.85 M/mm3 (4.60-6.20); Red Cell Distribution Width 16.2 % (11.5-17.5); White Blood Count 6.2 K/mm3 (4.8-10.8)
[2017-05-27 12:10] VITALS: BP 126/70; PULSE 88; RESP 20; TEMP 36.9; O2SAT 96
--- NOTE | 2017-05-27 18:43 | PC.NURSE ---
PT ARRIVED AT 0815. UPON ARRIVAL STATED THAT PATIENT WAS NOT HIMSELF THIS AM. PT WAS DISORIENTED AT HOME THIS AM. PT ALSO STATED THAT HE WAS DIZZY AND DIDNT FEEL WELL AT ALL THIS AM. VITALS CHECKED AND STABLE; LABS WERE CHECKED AND LABS WERE WITHIN NORMAL LIMITS TO GET CHEMO; BASED ON THE PATIENT'S CONDTION I CALLED AND SPOKE WITH MD OFFICE AT . 0910- NURSE AGATHA FROM [facility] AND STATED THAT BASED ON PT SYMPTOMS TO HOLD THE CHEMO AND THAT THE PATIENT NEEDED TO COME TO MD OFFICE AT 1330 TODAY TO GET EVALUATED. 1020- CALLED AND SPOKE WITH AGATHA AGAIN BECAUSE WAS CONCERNED ABOUT GOING BACK TO [place]. EXPLAINED TO OFFICE THAT THE DISORIENTATION WAS BETTER AFTER THE PATIENT WAS HERE FOR AWHILE. PT WAS VERY TIRED AND COLOR WAS PALE/REA. THE NURSE SPOKE WITH MD AGAIN AND THEY STILL WANTED TO SEE THE PATIENT THIS AFTERNOON AND TOLD ME TO LET THE FAMILY KNOW THAT THE PATIENT WOULD BE ADMITTED ONCE HE ARRIVED THERE TODAY; 1135- NURSE CALLED BACK TO LET FAMILY KNOW THAT HE WOULD NEED TO GO DIRECTLY TO THE ER AT AND THAT THEY WOULD ADMIT HIM FROM THERE; THE NURSE HAD ALREADY SPOKE WITH MD AND ATTENDING MD AT THE ER TO LET THEM KNOW THE PATIENT WOULD NEED TO GET EVALUATED THEN ADMITTED, 1210- PT DISCHARGED WITH
== END 2017-05-27 12:10 | disposition home or self-care (01) ==
LOC: INF 18:24
PROVIDERS: Family Provider Family Medicine; PCP Family Medicine; Visit Provider Internal Medicine
DX: C92.00 Acute myeloblastic leukemia, not having achieved remission (principal)
CPT/HCPCS: 85025; G0463

== ENCOUNTER 2017-06-03 08:52 | Outpatient (CLI) | payer MEDICARE, OTHER, SELFPAY ==
[2017-06-03 08:54] VITALS: BMI 27.2
[2017-06-03 09:00] VITALS: BP 122/70; PULSE 68; RESP 20; TEMP 36.4; O2SAT 96
[2017-06-03 09:06] LABS: Basophils % 0.2 % (0.1-2.0); Eosinophils % 1.4 % (0.1-12.0); Hematocrit 27.4 % (42.0-52.0); Hemoglobin 9.2 g/dL (14.1-18.0); Lymphocytes # 2.2 K/mm3 (0.7-4.5); Lymphocytes % 81.3 K/mm3 (10-50); Mean Corpuscular HGB Conc 33.6 g/dL (31.8-35.4); Mean Corpuscular Hemoglobin 30.9 pg (27.0-31.2); Mean Platelet Volume 9.6 fl (7.4-10.4); Monocytes # 0.1 K/mm3 (0.1-1.0); Monocytes % 4.5 % (1.7-9.3); Neutrophils # 0.3 K/mm3 (1.8-7.8); Red Blood Count 2.98 M/mm3 (4.60-6.20); Red Cell Distribution Width 15.2 % (11.5-17.5); White Blood Count 2.7 K/mm3 (4.8-10.8)
[2017-06-03 09:07] LABS: Neutrophils % 12.6 % (37.0-80.0)
[2017-06-03 09:09] LABS: Platelet Count 45 K/mm3 (142-424)
[2017-06-03 09:10] LABS: MANUAL DIFFERENTIAL MANUAL DIFFERENTIAL (MANUAL DIFF)
[2017-06-03 09:24] LABS: Lymphocytes % 96 % (10-50); Neutrophils % 4 % (42-76); Total Cells Counted 50
[2017-06-03 09:25] LABS: Platelet Estimate Marked Decrease; RBC Morphology Normal
== END 2017-06-03 09:00 | disposition home or self-care (01) ==
LOC: INF 08:52
PROVIDERS: Family Provider Family Medicine; PCP Family Medicine; Visit Provider Internal Medicine
DX: C92.00 Acute myeloblastic leukemia, not having achieved remission (principal); Z45.2 Encounter for adjustment and management of vascular access device
CPT/HCPCS: 85007; 85025

== ENCOUNTER → 2017-06-06 14:30 | Outpatient (CLI) | payer MEDICARE, OTHER, SELFPAY ==
[2017-06-06] VITALS (15 sets, daily range): BP systolic 135–152; BP diastolic 64–72; PULSE 64–77; RESP 18–20; TEMP 36.6–37.4; O2SAT 98–100; BMI 27.2
[2017-06-06 15:19] LABS: Platelet Count 16 K/mm3 (142-424)
[2017-06-06 21:34] LABS: Platelet Count 95 K/mm3 (142-424)
== END ==
PROVIDERS: Family Provider Family Medicine; PCP Family Medicine; Visit Provider Internal Medicine Hematology & Oncology
DX: C92.00 Acute myeloblastic leukemia, not having achieved remission (principal)
CPT/HCPCS: 36430; 85049; 86900; 86901; P9034

== ENCOUNTER 2017-06-10 08:51 | Outpatient (CLI) | payer MEDICARE, OTHER, SELFPAY ==
[2017-06-10 08:55] VITALS: BMI 27.2
[2017-06-10 09:04] LABS: Basophils % 0.2 % (0.1-2.0); Mean Corpuscular HGB Conc 33.6 g/dL (31.8-35.4); Mean Corpuscular Hemoglobin 30.4 pg (27.0-31.2); Mean Corpuscular Volume 90.5 fl (80-94); Mean Platelet Volume 9.3 fl (7.4-10.4); Monocytes % 1.4 % (1.7-9.3); Neutrophils # 0.1 K/mm3 (1.8-7.8); Red Blood Count 2.64 M/mm3 (4.60-6.20); Red Cell Distribution Width 14.7 % (11.5-17.5); White Blood Count 2.1 K/mm3 (4.8-10.8)
[2017-06-10 09:11] LABS: Neutrophils % 4.4 % (37.0-80.0)
[2017-06-10 09:21] LABS: Hematocrit 23.6 % (42.0-52.0); Hemoglobin 8.1 g/dL (14.1-18.0); Platelet Count 41 K/mm3 (142-424)
[2017-06-10 09:22] LABS: MANUAL DIFFERENTIAL MANUAL DIFFERENTIAL (MANUAL DIFF)
--- NOTE | 2017-06-10 09:22 | PC.NURSE ---
Labs drawn this am, called to self from lab staff Keena. Results noted as hgb-8.1, hct-23.6, plt-41. According to standing written physician orders-order only needed to transfuse blood if <8.0 or plts<20. Pt does not meet criteria for transfusion at this time. Pt to report to in the am for bone marrow biopsy. Pt ok to be d/c'd home at this time, agreeable with poc. Pt to return here wed for more lab work.
[2017-06-10 10:00] LABS: Hypochromasia 2+; Lymphocytes % 92 % (10-50); Monocytes % 2 % (2-9); Neutrophils % 2 % (42-76); Total Cells Counted 100
[2017-06-10 10:01] LABS: Anisocytosis 2+; Microcytosis 2+
[2017-06-10 10:02] LABS: Platelet Estimate Marked Dec
== END 2017-06-10 09:45 | disposition home or self-care (01) ==
LOC: INF 08:51
PROVIDERS: Family Provider Family Medicine; PCP Family Medicine; Visit Provider Internal Medicine
DX: C92.00 Acute myeloblastic leukemia, not having achieved remission (principal)
CPT/HCPCS: 85007; 85025

== ENCOUNTER 2017-06-12 08:35 | Outpatient (CLI) | payer MEDICARE, OTHER, SELFPAY ==
[2017-06-12] VITALS (25 sets, daily range): BP systolic 109–136; BP diastolic 54–69; PULSE 57–66; RESP 16–18; TEMP 36.3–36.8; O2SAT 97; BMI 26.5
[2017-06-12 09:02] LABS: Basophils % 0.3 % (0.1-2.0); Lymphocytes # 2.1 K/mm3 (0.7-4.5); Lymphocytes % 92.4 K/mm3 (10-50); Mean Corpuscular Hemoglobin 30.6 pg (27.0-31.2); Mean Corpuscular Volume 89.8 fl (80-94); Mean Platelet Volume 9.3 fl (7.4-10.4); Monocytes # 0.1 K/mm3 (0.1-1.0); Monocytes % 2.3 % (1.7-9.3); Neutrophils # 0.1 K/mm3 (1.8-7.8); Red Blood Count 2.52 M/mm3 (4.60-6.20); Red Cell Distribution Width 14.7 % (11.5-17.5); White Blood Count 2.2 K/mm3 (4.8-10.8)
[2017-06-12 09:15] LABS: Hematocrit 22.6 % (42.0-52.0); Hemoglobin 7.7 g/dL (14.1-18.0); Neutrophils % 4.1 % (37.0-80.0); Platelet Count 34 K/mm3 (142-424)
[2017-06-12 09:16] LABS: MANUAL DIFFERENTIAL MANUAL DIFFERENTIAL (MANUAL DIFF)
[2017-06-12 09:56] LABS: Eosinophils % 1 % (0-3); Hypochromasia 1+; Lymphocytes % 86 % (10-50); Monocytes % 10 % (2-9); Neutrophils % 3 % (42-76); Platelet Estimate Moderate Decrease; Total Cells Counted 100
--- NOTE | 2017-06-12 11:00 | PC.NURSE ---
BLOOD TRANSFUSING AT 100 ML/HR AT THIS TIME
--- NOTE | 2017-06-12 11:32 | PC.NURSE ---
1120 - INCREASED RATE TO 150 ML/HR AT THIS TIME.
--- NOTE | 2017-06-12 11:54 | PC.NURSE ---
1150 - INCREASED RATE TO 200 ML/HR AT THIS TIME.
--- NOTE | 2017-06-12 13:01 | PC.NURSE ---
1300 - INFUSION RATE AT 100 ML/HR AT THIS TIME.
--- NOTE | 2017-06-12 14:07 | PC.NURSE ---
1330 - INCREASED RATE TO 150 ML/HR AT THIS TIME.
--- NOTE | 2017-06-12 14:10 | PC.NURSE ---
1400 - INCREASED RATE TO 200 ML/HR AT THIS TIME.
--- NOTE | 2017-06-12 15:03 | PC.NURSE ---
1430 - RATE WAS INCREASED TO 250 ML/HR AT THIS TIME.
--- NOTE | 2017-06-12 15:27 | PC.NURSE ---
1525 - PLT'S BEGAN TRANSFUSING BY GRAVITY AT THIS TIME.
--- NOTE | 2017-06-12 16:32 | PC.NURSE ---
1620 - 30 MIN POST PLT TRANSFUSION VITALS DONE AT THIS TIME; BLOOD ALSO DRAWN FROM PICC LINE AT THIS TIME FOR POST H/H AND PLT COUNT.
[2017-06-12 16:35] LABS: Hematocrit 25.7 % (42.0-52.0)
[2017-06-12 16:39] LABS: Platelet Count 58 K/mm3 (142-424)
[2017-06-12 16:44] LABS: Hemoglobin 8.9 g/dL (14.1-18.0)
== END 2017-06-12 16:30 | disposition home or self-care (01) ==
LOC: INF 08:40
PROVIDERS: Family Provider Family Medicine; PCP Family Medicine; Visit Provider Internal Medicine
DX: C92.00 Acute myeloblastic leukemia, not having achieved remission (principal); Z45.2 Encounter for adjustment and management of vascular access device
CPT/HCPCS: 36415; 36430; 85007; 85014; 85018; 85025; 85049; 86850; P9016; P9034

== ENCOUNTER 2017-06-14 08:35 | Outpatient (CLI) | payer MEDICARE, OTHER, SELFPAY ==
[2017-06-14 08:42] VITALS: BMI 26.5
[2017-06-14 09:02] LABS: Basophils % 0.1 % (0.1-2.0); Eosinophils % 1.9 % (0.1-12.0); Hematocrit 28.2 % (42.0-52.0); Hemoglobin 9.4 g/dL (14.1-18.0); Lymphocytes # 1.7 K/mm3 (0.7-4.5); Lymphocytes % 86.8 K/mm3 (10-50); Mean Corpuscular HGB Conc 33.5 g/dL (31.8-35.4); Mean Corpuscular Hemoglobin 30.2 pg (27.0-31.2); Mean Corpuscular Volume 90.1 fl (80-94); Mean Platelet Volume 9.4 fl (7.4-10.4); Monocytes # 0.1 K/mm3 (0.1-1.0); Monocytes % 2.8 % (1.7-9.3); Neutrophils # 0.2 K/mm3 (1.8-7.8); Platelet Count 59 K/mm3 (142-424); Red Blood Count 3.13 M/mm3 (4.60-6.20); Red Cell Distribution Width 14.5 % (11.5-17.5)
[2017-06-14 09:15] LABS: Neutrophils % 8.4 % (37.0-80.0)
[2017-06-14 09:17] LABS: MANUAL DIFFERENTIAL MANUAL DIFFERENTIAL (MANUAL DIFF)
[2017-06-14 09:52] LABS: Eosinophils % 1 % (0-3); Lymphocytes % 86 % (10-50); Monocytes % 1 % (2-9); Neutrophils % 8 % (42-76); Total Cells Counted 100
[2017-06-14 09:54] LABS: Platelet Estimate Marked Decrease; RBC Morphology Normal
== END 2017-06-14 09:40 | disposition home or self-care (01) ==
LOC: INF 08:39
PROVIDERS: Family Provider Family Medicine; PCP Family Medicine; Visit Provider Internal Medicine
DX: C92.00 Acute myeloblastic leukemia, not having achieved remission (principal)
CPT/HCPCS: 85007; 85025

== ENCOUNTER 2017-06-17 08:48 | Outpatient (CLI) | payer MEDICARE, OTHER, SELFPAY ==
[2017-06-17 08:52] VITALS: BMI 26.4
[2017-06-17 09:07] LABS: Basophils % 0.1 % (0.1-2.0); Eosinophils % 0.7 % (0.1-12.0); Hematocrit 26.9 % (42.0-52.0); Lymphocytes # 1.8 K/mm3 (0.7-4.5); Lymphocytes % 83.6 K/mm3 (10-50); Mean Corpuscular HGB Conc 33.4 g/dL (31.8-35.4); Mean Corpuscular Hemoglobin 30.1 pg (27.0-31.2); Mean Corpuscular Volume 90.2 fl (80-94); Mean Platelet Volume 10.7 fl (7.4-10.4); Monocytes # 0.1 K/mm3 (0.1-1.0); Monocytes % 5.5 % (1.7-9.3); Neutrophils # 0.2 K/mm3 (1.8-7.8); Red Blood Count 2.99 M/mm3 (4.60-6.20); Red Cell Distribution Width 14.7 % (11.5-17.5); White Blood Count 2.1 K/mm3 (4.8-10.8)
[2017-06-17 09:20] LABS: Platelet Count 142 K/mm3 (142-424)
[2017-06-17 09:21] LABS: MANUAL DIFFERENTIAL MANUAL DIFFERENTIAL (MANUAL DIFF)
[2017-06-17 09:57] LABS: Lymphocytes % 71 % (10-50); Monocytes % 1 % (2-9); Neutrophils % 11 % (42-76); Total Cells Counted 100
[2017-06-17 09:58] LABS: Hypochromasia 2+
[2017-06-17 09:59] LABS: Platelet Estimate Slight Decrease
== END 2017-06-17 09:30 | disposition home or self-care (01) ==
LOC: INF 08:48
PROVIDERS: Family Provider Family Medicine; PCP Family Medicine; Visit Provider Internal Medicine
DX: C92.00 Acute myeloblastic leukemia, not having achieved remission (principal)
CPT/HCPCS: 85007; 85025; G0463

== ENCOUNTER 2017-06-19 08:40 | Outpatient (CLI) | payer MEDICARE, OTHER, SELFPAY ==
[2017-06-19 09:15] VITALS: BMI 26.5
[2017-06-19 09:34] LABS: Basophils % 0.1 % (0.1-2.0); Hematocrit 25.7 % (42.0-52.0); Hemoglobin 8.4 g/dL (14.1-18.0); Lymphocytes # 1.9 K/mm3 (0.7-4.5); Lymphocytes % 77.4 K/mm3 (10-50); Mean Corpuscular HGB Conc 32.9 g/dL (31.8-35.4); Mean Corpuscular Hemoglobin 30.1 pg (27.0-31.2); Mean Corpuscular Volume 91.6 fl (80-94); Mean Platelet Volume 10.2 fl (7.4-10.4); Monocytes # 0.2 K/mm3 (0.1-1.0); Monocytes % 9.5 % (1.7-9.3); Neutrophils # 0.3 K/mm3 (1.8-7.8); Platelet Count 260 K/mm3 (142-424); White Blood Count 2.5 K/mm3 (4.8-10.8)
[2017-06-19 09:49] LABS: MANUAL DIFFERENTIAL MANUAL DIFFERENTIAL (MANUAL DIFF)
[2017-06-19 10:25] LABS: Lymphocytes % 65 % (10-50); Monocytes % 10 % (2-9); Myelocytes % 2 (0-1); Neutrophils % 12 % (42-76); Total Cells Counted 100
[2017-06-19 10:26] LABS: Hypochromasia 1+; Platelet Estimate Normal
== END 2017-06-19 10:00 | disposition home or self-care (01) ==
LOC: INF 09:12
PROVIDERS: Family Provider Family Medicine; PCP Family Medicine; Visit Provider Internal Medicine
DX: C92.00 Acute myeloblastic leukemia, not having achieved remission (principal); Z45.2 Encounter for adjustment and management of vascular access device
CPT/HCPCS: 85007; 85025

== ENCOUNTER 2017-06-21 08:40 | Outpatient (CLI) | payer MEDICARE, OTHER, SELFPAY ==
[2017-06-21 08:43] VITALS: BMI 26.5
[2017-06-21 08:55] LABS: Eosinophils % 0.4 % (0.1-12.0); Hematocrit 27.1 % (42.0-52.0); Hemoglobin 8.7 g/dL (14.1-18.0); Lymphocytes # 2.1 K/mm3 (0.7-4.5); Lymphocytes % 75.3 K/mm3 (10-50); Mean Corpuscular Hemoglobin 29.5 pg (27.0-31.2); Mean Corpuscular Volume 91.9 fl (80-94); Mean Platelet Volume 10.1 fl (7.4-10.4); Monocytes # 0.3 K/mm3 (0.1-1.0); Monocytes % 10.4 % (1.7-9.3); Neutrophils # 0.4 K/mm3 (1.8-7.8); Platelet Count 346 K/mm3 (142-424); Red Blood Count 2.95 M/mm3 (4.60-6.20); Red Cell Distribution Width 15.4 % (11.5-17.5); White Blood Count 2.8 K/mm3 (4.8-10.8)
[2017-06-21 08:58] LABS: Neutrophils % 13.9 % (37.0-80.0)
[2017-06-21 09:00] LABS: MANUAL DIFFERENTIAL MANUAL DIFFERENTIAL (MANUAL DIFF)
[2017-06-21 09:40] LABS: Eosinophils % 1 % (0-3); Lymphocytes % 63 % (10-50); Monocytes % 9 % (2-9); Myelocytes % 1 (0-1); Neutrophils % 16 % (42-76); Platelet Estimate Normal; Total Cells Counted 100
== END 2017-06-21 09:25 | disposition home or self-care (01) ==
LOC: INF 08:58
PROVIDERS: Family Provider Family Medicine; PCP Family Medicine; Visit Provider Internal Medicine
DX: C92.00 Acute myeloblastic leukemia, not having achieved remission (principal); Z45.2 Encounter for adjustment and management of vascular access device
CPT/HCPCS: 85007; 85025

== ENCOUNTER 2017-06-24 08:25 | Outpatient (CLI) | payer MEDICARE, OTHER, SELFPAY ==
[2017-06-24 08:32] VITALS: BMI 26.5
[2017-06-24 08:52] LABS: Basophils % 0.1 % (0.1-2.0); Hematocrit 25.8 % (42.0-52.0); Hemoglobin 8.5 g/dL (14.1-18.0); Lymphocytes # 2.4 K/mm3 (0.7-4.5); Lymphocytes % 73.4 K/mm3 (10-50); Mean Corpuscular HGB Conc 32.8 g/dL (31.8-35.4); Mean Corpuscular Hemoglobin 29.8 pg (27.0-31.2); Mean Corpuscular Volume 90.8 fl (80-94); Mean Platelet Volume 10.4 fl (7.4-10.4); Monocytes # 0.4 K/mm3 (0.1-1.0); Monocytes % 10.7 % (1.7-9.3); Neutrophils # 0.5 K/mm3 (1.8-7.8); Platelet Count 386 K/mm3 (142-424); Red Blood Count 2.84 M/mm3 (4.60-6.20); Red Cell Distribution Width 15.8 % (11.5-17.5); White Blood Count 3.3 K/mm3 (4.8-10.8)
[2017-06-24 09:00] LABS: Neutrophils % 14.8 % (37.0-80.0)
[2017-06-24 09:02] LABS: MANUAL DIFFERENTIAL MANUAL DIFFERENTIAL (MANUAL DIFF)
[2017-06-24 09:28] LABS: Lymphocytes % 56 % (10-50); Monocytes % 26 % (2-9); Neutrophils % 18 % (42-76); Platelet Estimate Normal; RBC Morphology Normal; Total Cells Counted 50
[2017-06-24 09:56] VITALS: BP 133/69; PULSE 71; RESP 18; TEMP 37.1; O2SAT 100
[2017-06-24 10:11] VITALS: BP 130/64; PULSE 76; RESP 18; O2SAT 99
[2017-06-24 10:26] VITALS: BP 131/62; PULSE 74; RESP 18; O2SAT 99
[2017-06-24 10:41] VITALS: BP 134/76; PULSE 69; RESP 18; O2SAT 98
[2017-06-24 10:56] VITALS: BP 129/69; PULSE 72; RESP 18; O2SAT 99
[2017-06-24 11:15] VITALS: BP 132/77; PULSE 74; RESP 18; O2SAT 99
== END 2017-06-24 11:25 | disposition home or self-care (01) ==
LOC: INF 08:38
PROVIDERS: Family Provider Family Medicine; PCP Family Medicine; Visit Provider Internal Medicine
DX: C92.00 Acute myeloblastic leukemia, not having achieved remission (principal)
CPT/HCPCS: 85007; 85025; 96413; J0894

== ENCOUNTER 2017-06-25 08:22 | Outpatient (CLI) | payer MEDICARE, OTHER, SELFPAY ==
[2017-06-25 08:29] VITALS: BMI 26.5
[2017-06-25 08:41] LABS: Basophils % 0.1 % (0.1-2.0); Hematocrit 26.4 % (42.0-52.0); Hemoglobin 8.6 g/dL (14.1-18.0); Lymphocytes # 2.2 K/mm3 (0.7-4.5); Lymphocytes % 68.9 K/mm3 (10-50); Mean Corpuscular HGB Conc 32.7 g/dL (31.8-35.4); Mean Corpuscular Hemoglobin 29.8 pg (27.0-31.2); Mean Platelet Volume 10.3 fl (7.4-10.4); Monocytes # 0.4 K/mm3 (0.1-1.0); Neutrophils # 0.6 K/mm3 (1.8-7.8); Neutrophils % 18.9 % (37.0-80.0); Platelet Count 391 K/mm3 (142-424); Red Cell Distribution Width 16.1 % (11.5-17.5); White Blood Count 3.2 K/mm3 (4.8-10.8)
[2017-06-25 08:42] LABS: MANUAL DIFFERENTIAL MANUAL DIFFERENTIAL (MANUAL DIFF)
[2017-06-25 09:08] LABS: Lymphocytes % 56 % (10-50); Monocytes % 3 % (2-9); Neutrophils % 28 % (42-76); Total Cells Counted 100
[2017-06-25 09:09] LABS: Hypochromasia 2+; Platelet Estimate Normal
[2017-06-25 09:19] VITALS: BP 136/67; PULSE 67; RESP 18; TEMP 36.9; O2SAT 98
[2017-06-25 09:34] VITALS: BP 131/62; PULSE 70; RESP 18; O2SAT 98
[2017-06-25 09:49] VITALS: BP 132/64; PULSE 69; RESP 18; O2SAT 99
[2017-06-25 10:04] VITALS: BP 130/67; PULSE 68; RESP 18; O2SAT 98
[2017-06-25 10:19] VITALS: BP 133/62; PULSE 69; RESP 18; O2SAT 98
[2017-06-25 10:35] VITALS: BP 135/62; PULSE 71; RESP 18; O2SAT 98
== END 2017-06-25 10:40 | disposition home or self-care (01) ==
LOC: INF 08:22
PROVIDERS: Family Provider Family Medicine; PCP Family Medicine; Visit Provider Internal Medicine
DX: Z51.11 Encounter for antineoplastic chemotherapy (principal); C92.00 Acute myeloblastic leukemia, not having achieved remission
CPT/HCPCS: 85007; 85025; 96413; J0894

== ENCOUNTER 2017-06-26 08:23 | Outpatient (CLI) | payer MEDICARE, OTHER, SELFPAY ==
[2017-06-26 08:26] VITALS: BMI 28.1
[2017-06-26 08:42] LABS: Basophils % 0.2 % (0.1-2.0); Eosinophils % 1.3 % (0.1-12.0); Hematocrit 25.5 % (42.0-52.0); Hemoglobin 8.3 g/dL (14.1-18.0); Lymphocytes % 66.8 K/mm3 (10-50); Mean Corpuscular HGB Conc 32.7 g/dL (31.8-35.4); Mean Corpuscular Hemoglobin 29.9 pg (27.0-31.2); Mean Corpuscular Volume 91.5 fl (80-94); Mean Platelet Volume 10.2 fl (7.4-10.4); Monocytes # 0.3 K/mm3 (0.1-1.0); Monocytes % 11.3 % (1.7-9.3); Neutrophils # 0.6 K/mm3 (1.8-7.8); Neutrophils % 20.5 % (37.0-80.0); Platelet Count 364 K/mm3 (142-424); Red Blood Count 2.79 M/mm3 (4.60-6.20); Red Cell Distribution Width 16.1 % (11.5-17.5)
[2017-06-26 08:44] LABS: MANUAL DIFFERENTIAL MANUAL DIFFERENTIAL (MANUAL DIFF)
[2017-06-26 09:24] LABS: Eosinophils % 1 % (0-3); Lymphocytes % 61 % (10-50); Monocytes % 5 % (2-9); Neutrophils % 28 % (42-76); Total Cells Counted 100
[2017-06-26 09:25] LABS: Hypochromasia 1+; Platelet Estimate Normal; Poikilocytosis 2+; Stomatocytes 2+
[2017-06-26 09:35] VITALS: BP 117/60; PULSE 76; RESP 18; TEMP 36.7; O2SAT 95
[2017-06-26 09:50] VITALS: BP 116/62; BP 138/73; PULSE 75; PULSE 86; RESP 18
[2017-06-26 10:05] VITALS: BP 96/61; PULSE 77; RESP 18
[2017-06-26 10:20] VITALS: BP 121/57; PULSE 72; RESP 18
[2017-06-26 10:35] VITALS: BP 129/61; PULSE 72; RESP 18
[2017-06-26 10:50] VITALS: BP 138/73; PULSE 86; RESP 18
== END 2017-06-26 11:05 | disposition home or self-care (01) ==
LOC: INF 08:23
PROVIDERS: Family Provider Family Medicine; PCP Family Medicine; Visit Provider Internal Medicine
DX: Z51.11 Encounter for antineoplastic chemotherapy (principal); C92.00 Acute myeloblastic leukemia, not having achieved remission
CPT/HCPCS: 85007; 85025; 96413; J0894

== ENCOUNTER 2017-06-27 11:35 | Outpatient (CLI) | payer MEDICARE, OTHER, SELFPAY ==
[2017-06-27 11:40] VITALS: BMI 28.1
[2017-06-27 12:21] VITALS: BP 112/64; PULSE 85; RESP 18; TEMP 36.8; O2SAT 98
[2017-06-27 12:36] VITALS: BP 113/56; PULSE 90; RESP 18; O2SAT 98
[2017-06-27 12:51] VITALS: BP 101/56; PULSE 85; RESP 18; O2SAT 98
[2017-06-27 13:06] VITALS: BP 101/63; PULSE 84; RESP 18; O2SAT 98
[2017-06-27 13:21] VITALS: BP 112/66; PULSE 83; RESP 18; O2SAT 98
[2017-06-27 13:45] VITALS: BP 113/62; PULSE 83; RESP 18; O2SAT 98
== END 2017-06-27 13:50 | disposition home or self-care (01) ==
LOC: INF 11:47
PROVIDERS: Family Provider Family Medicine; PCP Family Medicine; Visit Provider Internal Medicine
DX: Z51.11 Encounter for antineoplastic chemotherapy (principal); C92.00 Acute myeloblastic leukemia, not having achieved remission
CPT/HCPCS: 86850; 96413; J0894

== ENCOUNTER 2017-06-28 08:25 | Outpatient (CLI) | payer MEDICARE, OTHER, SELFPAY ==
[2017-06-28] VITALS (24 sets, daily range): BP systolic 103–140; BP diastolic 60–81; PULSE 61–71; RESP 16–18; TEMP 36.2–36.7; BMI 28.1
[2017-06-28 08:47] LABS: Eosinophils % 1.3 % (0.1-12.0); Lymphocytes # 1.9 K/mm3 (0.7-4.5); Lymphocytes % 72.3 K/mm3 (10-50); Mean Corpuscular Volume 88.7 fl (80-94); Mean Platelet Volume 10.4 fl (7.4-10.4); Monocytes # 0.2 K/mm3 (0.1-1.0); Monocytes % 8.8 % (1.7-9.3); Neutrophils # 0.5 K/mm3 (1.8-7.8); Neutrophils % 17.5 % (37.0-80.0); Platelet Count 244 K/mm3 (142-424); Red Blood Count 2.07 M/mm3 (4.60-6.20); Red Cell Distribution Width 16.3 % (11.5-17.5); White Blood Count 2.7 K/mm3 (4.8-10.8)
[2017-06-28 08:50] LABS: Hematocrit 18.4 % (42.0-52.0); Hemoglobin 7.5 g/dL (14.1-18.0)
[2017-06-28 08:52] LABS: MANUAL DIFFERENTIAL MANUAL DIFFERENTIAL (MANUAL DIFF)
[2017-06-28 09:34] LABS: Eosinophils % 2 % (0-3); Lymphocytes % 63 % (10-50); Monocytes % 9 % (2-9); Myelocytes % 2 (0-1); Neutrophils % 20 % (42-76); Platelet Estimate Normal; Total Cells Counted 100
[2017-06-28 09:35] LABS: Stomatocytes 1+
[2017-06-28 09:37] LABS: Mean Corpuscular HGB Conc 33.4 g/dL (31.8-35.4); Mean Corpuscular Hemoglobin 29.6 pg (27.0-31.2)
--- NOTE | 2017-06-28 10:41 | PC.NURSE ---
0950 - RATE INCREASED FROM 100 ML/HR TO 150 ML/HR AT THIS TIME.
--- NOTE | 2017-06-28 10:45 | PC.NURSE ---
1020 - INCREASED RATE TO 200 ML/HR AT THIS TIME
--- NOTE | 2017-06-28 11:41 | PC.NURSE ---
1140 - INFUSION RATE AT 100 ML/HR AT THIS TIME
--- NOTE | 2017-06-28 12:14 | PC.NURSE ---
1210 - INCREASED RATE TO 150 ML/HR AT THIS TIME
--- NOTE | 2017-06-28 13:32 | PC.NURSE ---
1240 - INCREASED RATE TO 200 ML/HR
--- NOTE | 2017-06-28 13:34 | PC.NURSE ---
1310 - RATE WAS INCREASED TO 250 ML/HR AT 1310
[2017-06-28 14:42] LABS: Hematocrit 27.7 % (42.0-52.0)
[2017-06-28 14:55] LABS: Hemoglobin 9.2 g/dL (14.1-18.0)
--- NOTE | 2017-06-28 15:18 | PC.NURSE ---
1425 - 1 HR POST H/H DRAWN AT THIS TIME
== END 2017-06-28 15:40 | disposition home or self-care (01) ==
LOC: INF 08:30
PROVIDERS: Family Provider Family Medicine; PCP Family Medicine; Visit Provider Internal Medicine
DX: Z51.11 Encounter for antineoplastic chemotherapy (principal); C92.00 Acute myeloblastic leukemia, not having achieved remission
CPT/HCPCS: 36430; 85007; 85014; 85018; 85025; 96413; 96415; J0894; P9016

== ENCOUNTER 2017-06-29 08:30 | Outpatient (CLI) | payer MEDICARE, OTHER, SELFPAY ==
[2017-06-29 08:30] VITALS: BP 124/67; PULSE 68; RESP 20; TEMP 36.9; O2SAT 97; BMI 28.1
[2017-06-29 08:46] LABS: Basophils % 0.1 % (0.1-2.0); Eosinophils % 1.2 % (0.1-12.0); Hematocrit 26.6 % (42.0-52.0); Hemoglobin 9.1 g/dL (14.1-18.0); Lymphocytes # 1.6 K/mm3 (0.7-4.5); Lymphocytes % 66.4 K/mm3 (10-50); Mean Corpuscular HGB Conc 34.2 g/dL (31.8-35.4); Mean Corpuscular Hemoglobin 31.2 pg (27.0-31.2); Mean Corpuscular Volume 91.3 fl (80-94); Mean Platelet Volume 10.1 fl (7.4-10.4); Monocytes # 0.2 K/mm3 (0.1-1.0); Monocytes % 9.1 % (1.7-9.3); Neutrophils # 0.6 K/mm3 (1.8-7.8); Neutrophils % 23.2 % (37.0-80.0); Platelet Count 235 K/mm3 (142-424); Red Blood Count 2.92 M/mm3 (4.60-6.20); Red Cell Distribution Width 15.6 % (11.5-17.5); White Blood Count 2.5 K/mm3 (4.8-10.8)
[2017-06-29 08:59] LABS: MANUAL DIFFERENTIAL MANUAL DIFFERENTIAL (MANUAL DIFF)
[2017-06-29 09:13] LABS: Lymphocytes % 68 % (10-50); Monocytes % 6 % (2-9); Neutrophils % 24 % (42-76); Platelet Estimate Normal; RBC Morphology Normal; Total Cells Counted 50
[2017-06-29 09:30] VITALS: BP 125/63; PULSE 68; RESP 20; TEMP 36.9; O2SAT 96
[2017-06-29 10:00] VITALS: BP 123/75; PULSE 68; RESP 20; TEMP 36.9; O2SAT 96
[2017-06-29 10:35] VITALS: BP 125/70; PULSE 66; RESP 20; TEMP 36.9; O2SAT 98
[2017-06-29 10:40] VITALS: BP 126/70; PULSE 68; RESP 20; O2SAT 98
== END 2017-06-29 10:40 | disposition home or self-care (01) ==
LOC: INF 08:30
PROVIDERS: Family Provider Family Medicine; PCP Family Medicine; Visit Provider Internal Medicine
DX: Z51.11 Encounter for antineoplastic chemotherapy (principal); C92.00 Acute myeloblastic leukemia, not having achieved remission
CPT/HCPCS: 85007; 85025; 96413; J0894

== ENCOUNTER 2017-06-30 08:32 | Outpatient (CLI) | payer MEDICARE, OTHER, SELFPAY ==
[2017-06-30 08:32] VITALS: BMI 28.1
[2017-06-30 08:50] LABS: Basophils % 0.2 % (0.1-2.0); Eosinophils % 1.3 % (0.1-12.0); Hematocrit 26.3 % (42.0-52.0); Hemoglobin 8.8 g/dL (14.1-18.0); Lymphocytes # 1.4 K/mm3 (0.7-4.5); Lymphocytes % 65.5 K/mm3 (10-50); Mean Corpuscular HGB Conc 33.3 g/dL (31.8-35.4); Mean Corpuscular Hemoglobin 30.8 pg (27.0-31.2); Mean Corpuscular Volume 92.4 fl (80-94); Mean Platelet Volume 10.8 fl (7.4-10.4); Monocytes # 0.2 K/mm3 (0.1-1.0); Monocytes % 6.9 % (1.7-9.3); Neutrophils # 0.6 K/mm3 (1.8-7.8); Neutrophils % 26.1 % (37.0-80.0); Platelet Count 198 K/mm3 (142-424); Red Blood Count 2.84 M/mm3 (4.60-6.20); Red Cell Distribution Width 15.8 % (11.5-17.5); White Blood Count 2.2 K/mm3 (4.8-10.8)
[2017-06-30 08:52] LABS: MANUAL DIFFERENTIAL MANUAL DIFFERENTIAL (MANUAL DIFF)
[2017-06-30 09:07] LABS: Lymphocytes % 64 % (10-50); Monocytes % 4 % (2-9); Neutrophils % 26 % (42-76); Total Cells Counted 50
[2017-06-30 09:08] LABS: Platelet Estimate Normal; RBC Morphology Normal
[2017-06-30 09:45] VITALS: BP 116/65; PULSE 66; RESP 20; TEMP 36.9; O2SAT 96
[2017-06-30 10:00] VITALS: BP 115/62; PULSE 62; RESP 20; TEMP 37.1; O2SAT 96
[2017-06-30 10:15] VITALS: BP 108/60; PULSE 68; RESP 20; O2SAT 96
[2017-06-30 10:45] VITALS: BP 112/70; PULSE 62; RESP 20; TEMP 36.9; O2SAT 96
[2017-06-30 10:50] VITALS: BP 118/70; PULSE 68; RESP 20; TEMP 36.4; O2SAT 96
== END 2017-06-30 10:55 | disposition home or self-care (01) ==
LOC: INF 08:32
PROVIDERS: Family Provider Family Medicine; PCP Family Medicine; Visit Provider Internal Medicine
DX: C92.00 Acute myeloblastic leukemia, not having achieved remission (principal); Z51.11 Encounter for antineoplastic chemotherapy
CPT/HCPCS: 85007; 85025; 96413; J0894

== ENCOUNTER 2017-07-01 08:40 | Outpatient (CLI) | payer MEDICARE, OTHER, SELFPAY ==
[2017-07-01 08:30] VITALS: BMI 27.9
[2017-07-01 08:46] LABS: Basophils % 0.1 % (0.1-2.0); Eosinophils % 1.1 % (0.1-12.0); Hematocrit 26.8 % (42.0-52.0); Hemoglobin 8.8 g/dL (14.1-18.0); Lymphocytes # 1.5 K/mm3 (0.7-4.5); Lymphocytes % 71.5 K/mm3 (10-50); Mean Corpuscular Hemoglobin 30.5 pg (27.0-31.2); Mean Corpuscular Volume 92.4 fl (80-94); Mean Platelet Volume 10.6 fl (7.4-10.4); Monocytes # 0.1 K/mm3 (0.1-1.0); Monocytes % 6.1 % (1.7-9.3); Neutrophils # 0.5 K/mm3 (1.8-7.8); Neutrophils % 21.1 % (37.0-80.0); Platelet Count 174 K/mm3 (142-424); Red Cell Distribution Width 15.5 % (11.5-17.5); White Blood Count 2.1 K/mm3 (4.8-10.8)
[2017-07-01 08:48] LABS: MANUAL DIFFERENTIAL MANUAL DIFFERENTIAL (MANUAL DIFF)
[2017-07-01 09:03] LABS: Eosinophils % 2 % (0-3); Helmet Cells 1+; Lymphocytes % 60 % (10-50); Monocytes % 6 % (2-9); Neutrophils % 28 % (42-76); Platelet Estimate Normal; Total Cells Counted 50
[2017-07-01 09:04] LABS: Ovalocytes 1+; Tear Drop Cells 1+
[2017-07-01 09:50] VITALS: BP 117/68; PULSE 68; RESP 20; TEMP 36.7; O2SAT 96
[2017-07-01 10:20] VITALS: BP 124/69; PULSE 68; RESP 20; TEMP 36.6; O2SAT 96
[2017-07-01 10:50] VITALS: BP 121/64; PULSE 68; RESP 20; TEMP 36.9; O2SAT 96
--- NOTE | 2017-07-01 16:55 | PC.NURSE ---
pre meds were given at 0920
== END 2017-07-01 10:55 | disposition home or self-care (01) ==
LOC: INF 08:48
PROVIDERS: Family Provider Family Medicine; PCP Family Medicine; Visit Provider Internal Medicine
DX: Z51.11 Encounter for antineoplastic chemotherapy (principal); C92.00 Acute myeloblastic leukemia, not having achieved remission
CPT/HCPCS: 85007; 85025; 96413; J0894

== ENCOUNTER 2017-07-02 08:29 | Outpatient (CLI) | payer MEDICARE, OTHER, SELFPAY ==
[2017-07-02 08:32] VITALS: BMI 27.8
[2017-07-02 08:46] LABS: Basophils % 0.1 % (0.1-2.0); Hemoglobin 8.9 g/dL (14.1-18.0); Lymphocytes # 1.5 K/mm3 (0.7-4.5); Lymphocytes % 72.9 K/mm3 (10-50); Mean Corpuscular HGB Conc 32.8 g/dL (31.8-35.4); Mean Corpuscular Hemoglobin 30.3 pg (27.0-31.2); Mean Corpuscular Volume 92.4 fl (80-94); Mean Platelet Volume 10.8 fl (7.4-10.4); Monocytes # 0.1 K/mm3 (0.1-1.0); Monocytes % 5.3 % (1.7-9.3); Neutrophils # 0.4 K/mm3 (1.8-7.8); Neutrophils % 20.7 % (37.0-80.0); Platelet Count 163 K/mm3 (142-424); Red Blood Count 2.92 M/mm3 (4.60-6.20); Red Cell Distribution Width 15.7 % (11.5-17.5)
[2017-07-02 08:53] LABS: MANUAL DIFFERENTIAL MANUAL DIFFERENTIAL (MANUAL DIFF)
[2017-07-02 09:39] LABS: Lymphocytes % 64 % (10-50); Monocytes % 8 % (2-9); Myelocytes % 2 (0-1); Neutrophils % 22 % (42-76); Platelet Estimate Normal; Total Cells Counted 50
[2017-07-02 09:48] VITALS: BP 138/73; PULSE 59; RESP 18; TEMP 36.4; O2SAT 98
[2017-07-02 10:18] VITALS: BP 134/76; PULSE 61; RESP 18; O2SAT 97
[2017-07-02 10:48] VITALS: BP 137/71; PULSE 60; RESP 18; O2SAT 98
[2017-07-02 11:10] VITALS: BP 133/74; PULSE 59; RESP 18; O2SAT 98
== END 2017-07-02 11:15 | disposition home or self-care (01) ==
LOC: INF 08:29
PROVIDERS: Family Provider Family Medicine; PCP Family Medicine; Visit Provider Internal Medicine
DX: Z51.11 Encounter for antineoplastic chemotherapy (principal); C92.00 Acute myeloblastic leukemia, not having achieved remission
CPT/HCPCS: 85007; 85025; 96413; J0894

== ENCOUNTER 2017-07-03 08:15 | Outpatient (CLI) | payer MEDICARE, OTHER, SELFPAY ==
[2017-07-03 08:21] VITALS: BMI 28.1
[2017-07-03 08:42] LABS: Basophils % 0.2 % (0.1-2.0); Eosinophils % 1.2 % (0.1-12.0); Hematocrit 27.2 % (42.0-52.0); Hemoglobin 8.9 g/dL (14.1-18.0); Lymphocytes # 1.6 K/mm3 (0.7-4.5); Mean Corpuscular HGB Conc 32.7 g/dL (31.8-35.4); Mean Corpuscular Hemoglobin 30.2 pg (27.0-31.2); Mean Corpuscular Volume 92.5 fl (80-94); Mean Platelet Volume 10.3 fl (7.4-10.4); Monocytes # 0.1 K/mm3 (0.1-1.0); Monocytes % 3.4 % (1.7-9.3); Neutrophils # 0.4 K/mm3 (1.8-7.8); Neutrophils % 17.2 % (37.0-80.0); Platelet Count 143 K/mm3 (142-424); Red Blood Count 2.94 M/mm3 (4.60-6.20); Red Cell Distribution Width 15.3 % (11.5-17.5); White Blood Count 2.1 K/mm3 (4.8-10.8)
[2017-07-03 08:47] LABS: MANUAL DIFFERENTIAL MANUAL DIFFERENTIAL (MANUAL DIFF)
[2017-07-03 09:17] LABS: Lymphocytes % 81 % (10-50); Neutrophils % 19 % (42-76); Total Cells Counted 100
[2017-07-03 09:19] LABS: Platelet Estimate Normal; RBC Morphology Normal
[2017-07-03 09:50] VITALS: BP 125/62; PULSE 62; RESP 18; TEMP 36.7; O2SAT 98
[2017-07-03 10:05] VITALS: BP 122/61; PULSE 61; RESP 18
[2017-07-03 10:20] VITALS: BP 125/61; PULSE 61; RESP 18
[2017-07-03 10:35] VITALS: BP 121/62; PULSE 61; RESP 18
[2017-07-03 10:50] VITALS: BP 129/66; PULSE 60; RESP 18
[2017-07-03 11:00] VITALS: BP 124/67; PULSE 62; RESP 18
== END 2017-07-03 11:15 | disposition home or self-care (01) ==
LOC: INF 08:23
PROVIDERS: Family Provider Family Medicine; PCP Family Medicine; Visit Provider Internal Medicine
DX: Z51.11 Encounter for antineoplastic chemotherapy (principal); C92.00 Acute myeloblastic leukemia, not having achieved remission
CPT/HCPCS: 85007; 85025; 96413; 96415; J0894

== ENCOUNTER 2017-07-05 08:30 | Outpatient (CLI) | payer MEDICARE, OTHER, SELFPAY ==
[2017-07-05 08:30] VITALS: BMI 28.1
[2017-07-05 08:43] LABS: Basophils % 0.1 % (0.1-2.0); Eosinophils % 0.8 % (0.1-12.0); Hematocrit 26.8 % (42.0-52.0); Hemoglobin 8.9 g/dL (14.1-18.0); Lymphocytes # 1.6 K/mm3 (0.7-4.5); Lymphocytes % 81.5 K/mm3 (10-50); Mean Corpuscular HGB Conc 33.4 g/dL (31.8-35.4); Mean Corpuscular Hemoglobin 30.5 pg (27.0-31.2); Mean Corpuscular Volume 91.5 fl (80-94); Mean Platelet Volume 10.5 fl (7.4-10.4); Monocytes # 0.1 K/mm3 (0.1-1.0); Monocytes % 2.8 % (1.7-9.3); Neutrophils # 0.3 K/mm3 (1.8-7.8); Platelet Count 103 K/mm3 (142-424); Red Blood Count 2.93 M/mm3 (4.60-6.20); Red Cell Distribution Width 15.7 % (11.5-17.5); White Blood Count 1.9 K/mm3 (4.8-10.8)
[2017-07-05 08:56] LABS: Neutrophils % 14.8 % (37.0-80.0)
[2017-07-05 08:57] LABS: MANUAL DIFFERENTIAL MANUAL DIFFERENTIAL (MANUAL DIFF)
[2017-07-05 09:15] VITALS: BP 122/70; PULSE 68; RESP 20; TEMP 36.4; O2SAT 96
[2017-07-05 09:33] LABS: Eosinophils % 1 % (0-3); Lymphocytes % 81 % (10-50); Monocytes % 1 % (2-9); Neutrophils % 17 % (42-76); Platelet Estimate Slight Decrease; Total Cells Counted 100
[2017-07-05 09:35] LABS: Poikilocytosis 1+; Stomatocytes 1+
== END 2017-07-05 09:15 | disposition home or self-care (01) ==
LOC: INF 08:38
PROVIDERS: Family Provider Family Medicine; PCP Family Medicine; Visit Provider Internal Medicine
DX: C92.00 Acute myeloblastic leukemia, not having achieved remission (principal)
CPT/HCPCS: 85007; 85025

== ENCOUNTER 2017-07-08 08:29 | Outpatient (CLI) | payer MEDICARE, OTHER, SELFPAY ==
[2017-07-08 08:32] VITALS: BMI 27.7
[2017-07-08 08:49] LABS: Basophils % 0.2 % (0.1-2.0); Eosinophils % 0.9 % (0.1-12.0); Hemoglobin 8.2 g/dL (14.1-18.0); Lymphocytes # 1.7 K/mm3 (0.7-4.5); Mean Corpuscular HGB Conc 32.9 g/dL (31.8-35.4); Mean Corpuscular Hemoglobin 30.1 pg (27.0-31.2); Mean Corpuscular Volume 91.3 fl (80-94); Mean Platelet Volume 10.8 fl (7.4-10.4); Monocytes % 1.2 % (1.7-9.3); Neutrophils # 0.1 K/mm3 (1.8-7.8); Platelet Count 66 K/mm3 (142-424); Red Blood Count 2.74 M/mm3 (4.60-6.20); Red Cell Distribution Width 15.7 % (11.5-17.5); White Blood Count 1.9 K/mm3 (4.8-10.8)
[2017-07-08 08:51] LABS: Neutrophils % 7.8 % (37.0-80.0)
[2017-07-08 08:52] LABS: MANUAL DIFFERENTIAL MANUAL DIFFERENTIAL (MANUAL DIFF)
[2017-07-08 09:08] LABS: Lymphocytes % 84 % (10-50); Monocytes % 6 % (2-9); Neutrophils % 10 % (42-76); Platelet Estimate Marked Decrease; Total Cells Counted 50
[2017-07-08 09:09] LABS: Ovalocytes 1+
== END 2017-07-08 09:00 | disposition home or self-care (01) ==
LOC: INF 08:29
PROVIDERS: Family Provider Family Medicine; PCP Family Medicine; Visit Provider Internal Medicine
DX: C92.00 Acute myeloblastic leukemia, not having achieved remission (principal)
CPT/HCPCS: 85007; 85025

== ENCOUNTER 2017-07-10 08:20 | Outpatient (CLI) | payer MEDICARE, OTHER, SELFPAY ==
[2017-07-10 08:33] VITALS: BMI 26.5
[2017-07-10 08:49] LABS: Basophils % 0.3 % (0.1-2.0); Eosinophils % 0.8 % (0.1-12.0); Hematocrit 24.6 % (42.0-52.0); Hemoglobin 8.4 g/dL (14.1-18.0); Lymphocytes # 1.6 K/mm3 (0.7-4.5); Lymphocytes % 91.5 K/mm3 (10-50); Mean Corpuscular HGB Conc 34.1 g/dL (31.8-35.4); Mean Platelet Volume 10.7 fl (7.4-10.4); Monocytes % 1.2 % (1.7-9.3); Neutrophils # 0.1 K/mm3 (1.8-7.8); Platelet Count 54 K/mm3 (142-424); Red Cell Distribution Width 15.4 % (11.5-17.5); White Blood Count 1.7 K/mm3 (4.8-10.8)
[2017-07-10 08:53] LABS: Neutrophils % 6.2 % (37.0-80.0)
[2017-07-10 08:58] LABS: MANUAL DIFFERENTIAL MANUAL DIFFERENTIAL (MANUAL DIFF)
[2017-07-10 09:44] LABS: Lymphocytes % 86 % (10-50); Monocytes % 2 % (2-9); Myelocytes % 2 (0-1); Neutrophils % 10 % (42-76); Platelet Estimate Marked Decrease; Total Cells Counted 50
== END 2017-07-10 09:15 | disposition home or self-care (01) ==
LOC: INF 08:50
PROVIDERS: Family Provider Family Medicine; PCP Family Medicine; Visit Provider Internal Medicine
DX: C92.00 Acute myeloblastic leukemia, not having achieved remission (principal)
CPT/HCPCS: 85007; 85025

== ENCOUNTER 2017-07-12 08:22 | Outpatient (CLI) | payer MEDICARE, OTHER, SELFPAY ==
[2017-07-12 08:22] VITALS: BMI 26.5
[2017-07-12 08:45] VITALS: BP 122/70; PULSE 68; RESP 20; TEMP 36.4; O2SAT 96
[2017-07-12 09:01] LABS: Basophils % 0.2 % (0.1-2.0); Eosinophils % 0.4 % (0.1-12.0); Hematocrit 24.3 % (42.0-52.0); Hemoglobin 8.3 g/dL (14.1-18.0); Lymphocytes # 1.8 K/mm3 (0.7-4.5); Lymphocytes % 91.7 K/mm3 (10-50); Mean Corpuscular HGB Conc 34.2 g/dL (31.8-35.4); Mean Corpuscular Hemoglobin 30.5 pg (27.0-31.2); Mean Corpuscular Volume 89.2 fl (80-94); Mean Platelet Volume 10.7 fl (7.4-10.4); Monocytes % 2.3 % (1.7-9.3); Neutrophils # 0.1 K/mm3 (1.8-7.8); Neutrophils % 5.4 % (37.0-80.0); Platelet Count 82 K/mm3 (142-424); Red Blood Count 2.72 M/mm3 (4.60-6.20); Red Cell Distribution Width 15.8 % (11.5-17.5)
[2017-07-12 09:03] LABS: MANUAL DIFFERENTIAL MANUAL DIFFERENTIAL (MANUAL DIFF)
[2017-07-12 09:26] LABS: Lymphocytes % 90 % (10-50); Monocytes % 6 % (2-9); Neutrophils % 4 % (42-76); Total Cells Counted 50
[2017-07-12 09:27] LABS: Platelet Estimate Moderate Decrease
[2017-07-12 09:28] LABS: Anisocytosis 1+; Poikilocytosis 1+
== END 2017-07-12 08:50 | disposition home or self-care (01) ==
LOC: INF 08:22
PROVIDERS: Family Provider Family Medicine; PCP Family Medicine; Visit Provider Internal Medicine
DX: C92.00 Acute myeloblastic leukemia, not having achieved remission (principal)
CPT/HCPCS: 85007; 85025

== ENCOUNTER 2017-07-15 08:28 | Outpatient (CLI) | payer MEDICARE, OTHER, SELFPAY ==
[2017-07-15] VITALS (19 sets, daily range): BP systolic 124–158; BP diastolic 51–79; PULSE 56–79; RESP 18; TEMP 36.5–36.8; O2SAT 97–99; BMI 27.2
[2017-07-15 08:40] LABS: Basophils % 0.3 % (0.1-2.0); Eosinophils % 0.8 % (0.1-12.0); Lymphocytes # 1.5 K/mm3 (0.7-4.5); Lymphocytes % 83.4 K/mm3 (10-50); Mean Corpuscular HGB Conc 33.1 g/dL (31.8-35.4); Mean Corpuscular Hemoglobin 30.1 pg (27.0-31.2); Mean Platelet Volume 10.8 fl (7.4-10.4); Monocytes # 0.1 K/mm3 (0.1-1.0); Monocytes % 7.1 % (1.7-9.3); Neutrophils # 0.2 K/mm3 (1.8-7.8); Platelet Count 186 K/mm3 (142-424); Red Blood Count 2.63 M/mm3 (4.60-6.20); Red Cell Distribution Width 17.4 % (11.5-17.5); White Blood Count 1.9 K/mm3 (4.8-10.8)
[2017-07-15 08:41] LABS: Neutrophils % 8.4 % (37.0-80.0)
[2017-07-15 08:42] LABS: Hematocrit 23.9 % (42.0-52.0); Hemoglobin 7.9 g/dL (14.1-18.0)
[2017-07-15 08:43] LABS: MANUAL DIFFERENTIAL MANUAL DIFFERENTIAL (MANUAL DIFF)
--- NOTE | 2017-07-15 08:57 | PC.NURSE ---
blood drawn for type and crossmatch, lab staff at bs to witness. blood drawn from picc line
[2017-07-15 09:15] LABS: Lymphocytes % 72 % (10-50); Monocytes % 14 % (2-9); Neutrophils % 14 % (42-76); Platelet Estimate Normal; Total Cells Counted 50
[2017-07-15 09:16] LABS: Tear Drop Cells 1+
[2017-07-15 15:59] LABS: Hematocrit 28.7 % (42.0-52.0)
[2017-07-15 16:05] LABS: Hemoglobin 9.5 g/dL (14.1-18.0)
== END 2017-07-15 15:00 | disposition home or self-care (01) ==
LOC: INF 08:28
PROVIDERS: Family Provider Family Medicine; PCP Family Medicine; Visit Provider Internal Medicine
DX: C92.00 Acute myeloblastic leukemia, not having achieved remission (principal)
CPT/HCPCS: 36430; 85007; 85014; 85018; 85025; 86850; P9016

== ENCOUNTER 2017-07-17 08:26 | Outpatient (CLI) | payer MEDICARE, OTHER, SELFPAY ==
[2017-07-17 08:28] VITALS: BMI 27.2
[2017-07-17 09:06] LABS: Basophils % 0.2 % (0.1-2.0); Eosinophils % 1.1 % (0.1-12.0); Hematocrit 27.6 % (42.0-52.0); Hemoglobin 9.1 g/dL (14.1-18.0); Lymphocytes # 1.2 K/mm3 (0.7-4.5); Lymphocytes % 79.2 K/mm3 (10-50); Mean Corpuscular Hemoglobin 30.2 pg (27.0-31.2); Mean Corpuscular Volume 91.5 fl (80-94); Mean Platelet Volume 9.8 fl (7.4-10.4); Monocytes # 0.1 K/mm3 (0.1-1.0); Monocytes % 8.9 % (1.7-9.3); Neutrophils # 0.2 K/mm3 (1.8-7.8); Platelet Count 289 K/mm3 (142-424); Red Blood Count 3.02 M/mm3 (4.60-6.20); Red Cell Distribution Width 17.7 % (11.5-17.5); White Blood Count 1.6 K/mm3 (4.8-10.8)
[2017-07-17 09:07] LABS: Neutrophils % 10.6 % (37.0-80.0)
[2017-07-17 09:09] LABS: MANUAL DIFFERENTIAL MANUAL DIFFERENTIAL (MANUAL DIFF)
[2017-07-17 10:19] LABS: Eosinophils % 2 % (0-3); Lymphocytes % 68 % (10-50); Monocytes % 6 % (2-9); Neutrophils % 14 % (42-76); Platelet Estimate Normal; Total Cells Counted 50
[2017-07-17 10:21] LABS: Anisocytosis 1+
== END 2017-07-17 09:10 | disposition home or self-care (01) ==
LOC: INF 08:26
PROVIDERS: Family Provider Family Medicine; PCP Family Medicine; Visit Provider Internal Medicine
DX: C92.00 Acute myeloblastic leukemia, not having achieved remission (principal)
CPT/HCPCS: 85007; 85025

== ENCOUNTER 2017-07-17 21:55 | Inpatient (IN) ==
--- NOTE | 2017-07-17 22:34 | Emergency Department Note ---
ED Disposition Clinical Impression: Fever of unknown origin Leukemia Qualifiers: Leukemia type: unspecified Leukemia Active/Remission status: without remission Qualified Code(s): C95.90 - Leukemia, unspecified not having achieved remission Disposition: Admitted as Observation Condition on Discharge: Good - Critical Care Critical Care Time: No Attestation: On 07/17/17, the high probability of a clinically significant, sudden or life threatening deterioration of the following system(s) required my full and direct attention, intervention and personal management. The time I documented below is in addition to time spent performing reported procedures but includes the following listed in this critical care notation. Medical Decision Making - Medical Records Medical records reviewed: Yes: I reviewed the patient's medical records. - Ravin Inquiry Pt receiving controlled substance: No Vital Signs: 07/17/17 22:03 07/17/17 23:15 Temperature 102.2 F H 100.5 F H Temperature Source Oral Oral Pulse Rate [Right Radial] 82 78 Respiratory Rate 20 16 Blood Pressure [Right Arm] 143/69 130/60 Blood Pressure Mean [Right Arm] 93 83 Blood Pressure Source [Right Arm] Automatic Cuff Automatic Cuff Blood Pressure Position [Right Arm] Sitting Sitting 02 Sat by Pulse Oximetry 94 L 94 L Oxygen Delivery Method Room Air Room Air - Lab Data Lab Results 07/17/17 22:16: Sodium 141, Potassium 3.7, Chloride 106, Carbon Dioxide 28, Anion Gap 10.7, BUN 22 H, Creatinine 0.78, Estimated Creat Clear 81, Estimated GFR 98, Est GFR ( Amer) 118, Glucose 163 H 07/17/17 22:16: Lactic Acid 1.1 07/17/17 22:16: Influenza Type A Ag Negative, Influenza Type B Ag Negative 07/17/17 22:16: WBC 1.6 L*, RBC 2.87 L, Hgb 8.8 L, Hct 26.1 L, MCV 90.9, MCH 30.8, MCHC 33.8, RDW 18.3 H, Plt Count 312, MPV 9.8, Neut % (Auto) 13.4 L, Lymph % (Auto) 70.6 H, Calloway % (Auto) 15.4 H, Eos % (Auto) 0.3, Baso % (Auto) 0.2 , Neut # (Auto) 0.2 L*, Lymph # (Auto) 1.1, Calloway # (Auto) 0.3, Eos # (Auto) 0.0 , Baso # (Auto) 0.0 Result diagrams: 07/17/17 22:16 07/17/17 22:16 Orders (Tests/Meds): ED MEDICATIONS Discontinued Medications Generic Name Dose Route Start Last Admin Trade Name Dion PRN Reason Stop Dose Admin Lactated Ringer's 1,000 mls @ 999 mls/hr 07/17/17 22:15 07/17/17 22:41 Lactated Ringer's 1000 Ml Bag IV 07/17/17 23:15 999 mls/hr .[id number] CELESTINO Administration Ibuprofen 600 mg 07/17/17 22:14 07/17/17 22:41 Motrin 600mg Tablet PO 07/17/17 22:15 600 mg ONCE ONE Administration ORDERS Category Date Time Status XR chest 2V Stat Exams 07/17/17 22:15 Taken Complete Blood Count Auto Diff Routine Lab 07/17/17 22:16 Results Blood Culture Stat Micro 07/17/17 22:16 Received Catheter Tip Culture Stat Micro 07/17/17 23:30 Ordered - Radiology Data #1 Image(s): Chest Image Reviewed: Yes I reviewed the patient's radiology image Preliminary Findings: Abnormal (possible pneumonia) - Physician Consults Physician Consulted: william Reason -: Admission Additional Consult: [email or web address] Reason -: Pt condition Fever HPI - General Chief Complaint: Fever Stated Complaint: Fever Time Seen by Provider: 07/17/17 22:34 Mode of Arrival: Ambulatory Source of Information: Patient, Spouse, Medical Record Limitations: No Limitations Description of Symptoms (Recalled from ER Triage Doc. 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 - History of Present Illness HPI Narrative: wm with onset of fever today with no rash or urinary sx with occ cough - he has leukemia MD complaint: fever Onset (ago): hour(s) Context: on chemotherapy Associated symptoms: denies other symptoms Treatments prior to arrival fever: acetaminophen - Related Data Home Medications Medication Instructions Recorded Confirmed Bisoprolol Fumarate [Zebeta 5mg 10 mg PO DAILY 03/28/17 07/17/17 tablet] Cholecalciferol (Vitamin D3) [D3 2,000 unit PO DAILY 03/28/17 07/17/17 Dots] Multivit-Min/FA/Lycopen/Lutein 1 each PO DAILY 03/28/17 07/17/17 [Centrum Silver Tablet] acyclovir 400 mg tablet 400 mg PO TID 05/01/17 07/17/17 Lisinopril [Lisinopril 40mg Tablet] 40 mg PO DAILY 05/23/17 07/17/17 Aspirin [Aspirin 81mg EC Tab] 81 mg PO DAILY 06/10/17 07/17/17 Fluconazole [Diflucan] 200 mg PO DAILY 06/10/17 07/17/17 Prochlorperazine Maleate 10 mg PO NEEDED PRN 06/10/17 07/17/17 [Compazine] levoFLOXacin [Levaquin 500mg 500 mg PO DAILY 07/17/17 07/17/17 tab] Allergies Allergy/AdvReac Type Severity Reaction Status Date / Time No Known Allergies Allergy Verified 05/03/17 16:41 [facility] History I have reviewed the patient's past medical history: Yes Medical History: Reports:: Arrhythmia, Atherosclerotic Heart Disease, Atrial Fibrillation, Cancer (leukemia), Coronary Artery Disease, Hyperlipidemia, Hypertension Denies:: Diabetes Mellitus Type 1, Diabetes Mellitus Type 2, MRSA Other Medical History: Reports: Hoarseness Other Surgeries: Yes: Appendectomy, Cardiac Catheterization, Coronary Stent Amputation: No Fractures: Yes (COMPRESSION FRACTURE IN BACK) - Social History Smoking Status: Former smoker Alcohol Intake: never Occupational Status: other Housing: house Household Members: spouse - Psychiatric History Expresses thoughts of harming self/others: None Suicide Plan Description: No Plan Family Hx:: Cancer, Coronary Artery Disease, Heart Attack, Hypertension, Stroke ROS Obtained: Yes All systems reviewed & no additional complaints - Constitutional Constitutional: Denies chills, Reports fever(s) - Eyes Eyes: Denies change in vision - ENT Ears, Nose, Mouth, and Throat: Denies sore throat - Cardiovascular Cardiovascular: Denies chest pain at rest - Respiratory Respiratory: No cough - Gastrointestinal Gastrointestingal: Denies: abdominal pain - Musculoskeletal Musculoskeletal: Denies joint pain - Integumentary/Breasts Skin/Breast: Denies rash - Neurologic Neurologic: Denies seizure-like activity Physical Exam - General General appearance: alert, in no apparent distress - Head Head exam: atraumatic, normocephalic - Eye Eye exam: Present: PERRL, EOMI - ENT ENT exam: Present: mucous membranes moist - Neck Neck exam: Absent: trachea midline - Respiratory Respiratory exam: Present: normal lung sounds bilaterally. Absent: respiratory distress - Cardiovascular Cardiovascular exam: Present: regular rate, systolic murmur. Absent: rubs - Abdominal Exam Abdominal exam: Present: soft - Extremities Exam Extremities exam: Absent: full ROM - Neurological Exam Neurological exam: Present: alert, oriented X3, CN II-XII intact - Psychiatric Psychiatric exam: Present: normal affect - Skin Skin exam: Absent: rash - Lymphatic Lymphatic Findings: no adenopathy
[2017-07-17 22:37] LABS: Basophils % 0.2 % (0.1-2.0); Eosinophils % 0.3 % (0.1-12.0); Hematocrit 26.1 % (42.0-52.0); Hemoglobin 8.8 g/dL (14.1-18.0); Lymphocytes # 1.1 K/mm3 (0.7-4.5); Lymphocytes % 70.6 K/mm3 (10-50); Mean Corpuscular HGB Conc 33.8 g/dL (31.8-35.4); Mean Corpuscular Hemoglobin 30.8 pg (27.0-31.2); Mean Corpuscular Volume 90.9 fl (80-94); Mean Platelet Volume 9.8 fl (7.4-10.4); Monocytes # 0.3 K/mm3 (0.1-1.0); Monocytes % 15.4 % (1.7-9.3); Neutrophils # 0.2 K/mm3 (1.8-7.8); Platelet Count 312 K/mm3 (142-424); Red Blood Count 2.87 M/mm3 (4.60-6.20); Red Cell Distribution Width 18.3 % (11.5-17.5); White Blood Count 1.6 K/mm3 (4.8-10.8)
[2017-07-17 22:41] LABS: Neutrophils % 13.4 % (37.0-80.0)
[2017-07-17 22:43] LABS: Anion Gap 10.7 mEq/L (5-15); Potassium 3.7 mmoL/L (3.5-5.1)
[2017-07-18 01:09] LABS: Anisocytosis 1+; Hypochromasia 1+; Lymphocytes % 72 % (10-50); Monocytes % 4 % (2-9); Neutrophils % 20 % (42-76); Ovalocytes 1+; Total Cells Counted 50
[2017-07-18 06:43] LABS: Basophils % 0.1 % (0.1-2.0); Eosinophils % 0.7 % (0.1-12.0); Hematocrit 25.9 % (42.0-52.0); Hemoglobin 8.8 g/dL (14.1-18.0); Lymphocytes # 1.5 K/mm3 (0.7-4.5); Lymphocytes % 75.4 K/mm3 (10-50); Mean Corpuscular HGB Conc 33.8 g/dL (31.8-35.4); Mean Corpuscular Volume 91.6 fl (80-94); Mean Platelet Volume 9.5 fl (7.4-10.4); Monocytes # 0.2 K/mm3 (0.1-1.0); Monocytes % 8.7 % (1.7-9.3); Neutrophils # 0.3 K/mm3 (1.8-7.8); Neutrophils % 15.1 % (37.0-80.0); Platelet Count 265 K/mm3 (142-424); Red Blood Count 2.83 M/mm3 (4.60-6.20); Red Cell Distribution Width 18.4 % (11.5-17.5)
[2017-07-18 07:46] LABS: Anion Gap 10.9 mEq/L (5-15); Potassium 3.9 mmoL/L (3.5-5.1)
--- NOTE | 2017-07-18 08:17 | Pharmacy Consult Notes ---
[facility] Pharmacy VTE Monitoring - Patient Demographics Admission date: 07/18/17 Report Date: 07/18/17 Time: 08:17 Allergies/Adverse Reactions: Patient Allergies No Known Allergies Allergy (Verified 05/03/17 16:41) Height: 1.78 m Weight: 86.183 kg Patient Problems: Current Active Problems Fever of unknown origin (Acute) Leukemia (Acute) - VTE Risk Labs: VTE Related Lab Results Hgb 8.8 g/dL (14.1-18.0) L 07/18/17 06:25 Hct 25.9 % (42.0-52.0) L 07/18/17 06:25 Plt Count 265 K/mm3 (142-424) 07/18/17 06:25 BUN 22 mg/dL (7-18) H 07/18/17 06:25 Creatinine 0.72 mg/dL (0.70-1.30) 07/18/17 06:25 Estimated Creat Clear 81 mL/min (0-300) 07/18/17 06:25 Was VTE Risk Assessment Performed: Yes VTE Score: 4 VTE Risk Level: Low Risk - Prophylaxis VTE Prophylaxis Ordered?: Yes Types of VTE Prophylaxis: TEDS Knee High Location of Applied Device: Bilateral Lower Extremeties - VTE Diagnosis Confirmed Treatment or plan recommended: Continue Current Treatment
--- NOTE | 2017-07-18 08:34 | History & Physical Report ---
*Admission Date: 07/18/17 <Aga Berg 07/18/17 08:37> *Chief complaint: fever <Aga Berg 07/18/17 08:37> *History of present illness: Mr. 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 He has had 30 rounds of chemo and states he has 10 more left. He is followed by Dr. Gonzalez from hematology oncology. He states he was told if he ever developed a fever to present to the emergency room. Yesterday he was out in the sun all day and developed a fever of 102, therefore he presented to the ER. He denies any other symptoms at this time. He has not had a fever throughout the night. According the patient, his PICC line has never been replaced and they were afraid in the ER this may be a source of infection, therefore it was removed. <Aga Berg 07/18/17 08:37> [facility] History Medical History: Reports:: Arrhythmia, Atherosclerotic Heart Disease, Atrial Fibrillation, Cancer (Acute Myelogenous Leukemia, basal cell carcinoma), Coronary Artery Disease, Hyperlipidemia, Hypertension Denies:: Diabetes Mellitus Type 1, Diabetes Mellitus Type 2, MRSA <Aga Berg 07/18/17 08:37> Other Medical History: Reports: Hoarseness <Aga Berg 07/18/17 08:37> Other Surgeries: Yes: Appendectomy, Cardiac Catheterization, Colonoscopy, Coronary Stent <Aga Berg 07/18/17 08:37> Amputation: No <Aga Berg 07/18/17 08:37> Fractures: Yes (COMPRESSION FRACTURE IN BACK) <Aga Berg 07/18/17 08:37> - *Social History Educational Level: Completed High School <Aga Berg 07/18/17 08:37> Smoking Status: Former smoker <Aga Berg 07/18/17 08:37> Tobacco Type: cigarettes <Aga Berg 07/18/17 08:37> # Packs/Day (cigarettes): 2 <Aga Berg 07/18/17 08:37> Alcohol Intake: never <Aga Berg 07/18/17 08:37> Occupational Status: other <Aga Berg 07/18/17 08:37> Housing: house <Aga Berg 07/18/17 08:37> Household Members: spouse <Aga Berg 07/18/17 08:37> - Psychiatric History Expresses thoughts of harming self/others: None <Aga Berg 07/18/17 08: 37> Suicide Plan Description: No Plan <Aga Berg 07/18/17 08:37> *Family Hx:: Cancer, Coronary Artery Disease, Heart Attack, Hypertension, Stroke <Aga Berg 07/18/17 08:37> Review of Systems - Constitutional Reports fever(s), Denies body ache(s), Denies chills, Denies weakness <Aga Berg 07/18/17 08:37> - Eyes Denies blurry vision, Denies double vision <Aga Berg 07/18/17 08:37> - ENT Denies nasal congestion, Denies sore throat <Aga Berg 07/18/17 08:37> - *Cardiovascular Denies chest pain, Denies leg swelling <Aga Berg 07/18/17 08:37> - *Respiratory Denies cough, Denies shortness of breath <Aga Berg 07/18/17 08:37> - *Gastrointestinal Denies abdominal pain, Denies loose stools, Denies nausea, Denies vomiting < Aga Berg 07/18/17 08:37> - *Genitourinary Denies difficulty urinating, Denies painful urination <Aga Berg 08:37> - *Musculoskeletal Denies joint pain, Denies body aches <Aga Berg 07/18/17 08:37> - *Neurologic Denies headache(s), Denies seizure-like activity, Denies dizziness, Denies weakness <Aga Berg 07/18/17 08:37> Meds Home Medications Medication Instructions Recorded Confirmed Type Bisoprolol Fumarate [Zebeta 5mg 10 mg PO DAILY 03/28/17 07/18/17 History tablet] Cholecalciferol (Vitamin D3) [D3 2,000 unit PO DAILY 03/28/17 07/18/17 History Dots] Multivit-Min/FA/Lycopen/Lutein 1 each PO DAILY 03/28/17 07/18/17 History [Centrum Silver Tablet] acyclovir 400 mg tablet 400 mg PO TID 05/01/17 07/18/17 History Lisinopril [Lisinopril 40mg Tablet] 40 mg PO DAILY 05/23/17 07/18/17 History Aspirin [Aspirin 81mg EC Tab] 81 mg PO DAILY 06/10/17 07/18/17 History Fluconazole [Diflucan] 200 mg PO DAILY 06/10/17 07/18/17 History Prochlorperazine Maleate 10 mg PO NEEDED PRN 06/10/17 07/18/17 History [Compazine] levoFLOXacin [Levaquin 500mg 500 mg PO DAILY 07/17/17 07/18/17 History tab] <Eduardo Sosa - 07/18/17 09:05> Allergies Allergy/AdvReac Type Severity Reaction Status Date / Time No Known Allergies Allergy Verified 05/03/17 16:41 <Eduardo Sosa - 07/18/17 09:05> Exam Vital signs and Labs for Last 24 Hours: Temp Pulse Resp BP Pulse Ox 98.1 F 65 20 127/61 94 L 07/18/17 08:00 07/18/17 08:00 07/18/17 08:00 07/18/17 08:00 07/18/17 08:00 Laboratory Results - last 24 hr 07/17/17 22:16: Sodium 141, Potassium 3.7, Chloride 106, Carbon Dioxide 28, Anion Gap 10.7, BUN 22 H, Creatinine 0.78, Estimated Creat Clear 81, Estimated GFR 98, Est GFR ( Amer) 118, Glucose 163 H 07/17/17 22:16: Lactic Acid 1.1 07/17/17 22:16: Influenza Type A Ag Negative, Influenza Type B Ag Negative 07/17/17 22:16: WBC 1.6 L*, RBC 2.87 L, Hgb 8.8 L, Hct 26.1 L, MCV 90.9, MCH 30.8, MCHC 33.8, RDW 18.3 H, Plt Count 312, MPV 9.8, Neut % (Auto) 13.4 L, Lymph % (Auto) 70.6 H, [place] % (Auto) 15.4 H, Eos % (Auto) 0.3, Baso % (Auto) 0.2 , Neut # (Auto) 0.2 L*, Lymph # (Auto) 1.1, [place] # (Auto) 0.3, Eos # (Auto) 0.0 , Baso # (Auto) 0.0, Total Counted 50, Neutrophils % (Manual) 20 L, Lymphocytes % (Manual) 72 H, Monocytes % (Manual) 4, Metamyelocytes % 2.0 H, Blast Cells % 2.0, Platelet Estimate Normal, Hypochromasia 1+, Anisocytosis 1+, Ovalocytes 1+ 07/17/17 22:16: ESR 111 H 07/17/17 22:16: C-Reactive Protein 2.9 H 07/18/17 06:25: WBC 2.0 L, RBC 2.83 L, Hgb 8.8 L, Hct 25.9 L, MCV 91.6, MCH 31.0 , MCHC 33.8, RDW 18.4 H, Plt Count 265, MPV 9.5, Neut % (Auto) 15.1 L, Lymph % ( Auto) 75.4 H, [place] % (Auto) 8.7, Eos % (Auto) 0.7, Baso % (Auto) 0.1, Neut # ( Auto) 0.3 L*, Lymph # (Auto) 1.5, [place] # (Auto) 0.2, Eos # (Auto) 0.0, Baso # ( Auto) 0.0 07/18/17 06:25: Sodium 145, Potassium 3.9, Chloride 110 H, Carbon Dioxide 28, Anion Gap 10.9, BUN 22 H, Creatinine 0.72, Estimated Creat Clear 81, Estimated GFR 107, Est GFR ( Amer) 130, Glucose 102 D <MarshallEduardo - 07/18/17 09:05> Temp Pulse Resp BP Pulse Ox 98.1 F 65 20 127/61 94 L 07/18/17 08:00 07/18/17 08:00 07/18/17 08:00 07/18/17 08:00 07/18/17 08:00 Laboratory Results - last 24 hr 07/17/17 22:16: Sodium 141, Potassium 3.7, Chloride 106, Carbon Dioxide 28, Anion Gap 10.7, BUN 22 H, Creatinine 0.78, Estimated Creat Clear 81, Estimated GFR 98, Est GFR ( Amer) 118, Glucose 163 H 07/17/17 22:16: Lactic Acid 1.1 07/17/17 22:16: Influenza Type A Ag Negative, Influenza Type B Ag Negative 07/17/17 22:16: WBC 1.6 L*, RBC 2.87 L, Hgb 8.8 L, Hct 26.1 L, MCV 90.9, MCH 30.8, MCHC 33.8, RDW 18.3 H, Plt Count 312, MPV 9.8, Neut % (Auto) 13.4 L, Lymph % (Auto) 70.6 H, [place] % (Auto) 15.4 H, Eos % (Auto) 0.3, Baso % (Auto) 0.2 , Neut # (Auto) 0.2 L*, Lymph # (Auto) 1.1, [place] # (Auto) 0.3, Eos # (Auto) 0.0 , Baso # (Auto) 0.0, Total Counted 50, Neutrophils % (Manual) 20 L, Lymphocytes % (Manual) 72 H, Monocytes % (Manual) 4, Metamyelocytes % 2.0 H, Blast Cells % 2.0, Platelet Estimate Normal, Hypochromasia 1+, Anisocytosis 1+, Ovalocytes 1+ 07/17/17 22:16: ESR 111 H 07/17/17 22:16: C-Reactive Protein 2.9 H 07/18/17 06:25: WBC 2.0 L, RBC 2.83 L, Hgb 8.8 L, Hct 25.9 L, MCV 91.6, MCH 31.0 , MCHC 33.8, RDW 18.4 H, Plt Count 265, MPV 9.5, Neut % (Auto) 15.1 L, Lymph % ( Auto) 75.4 H, [place] % (Auto) 8.7, Eos % (Auto) 0.7, Baso % (Auto) 0.1, Neut # ( Auto) 0.3 L*, Lymph # (Auto) 1.5, [place] # (Auto) 0.2, Eos # (Auto) 0.0, Baso # ( Auto) 0.0 07/18/17 06:25: Sodium 145, Potassium 3.9, Chloride 110 H, Carbon Dioxide 28, Anion Gap 10.9, BUN 22 H, Creatinine 0.72, Estimated Creat Clear 81, Estimated GFR 107, Est GFR ( Amer) 130, Glucose 102 D <Aga Berg 07/18/17 08:37> I & O for Last 24 hours: Intake & Output 07/15/17 07/16/17 07/17/17 07/18/17 11:59 11:59 11:59 11:59 Intake Total 683 / 683 Balance 683 / 683 Weight 190 lb <Eduardo Sosa - 07/18/17 09:05> Intake & Output 07/15/17 07/16/17 07/17/17 07/18/17 11:59 11:59 11:59 11:59 Intake Total 683 / 683 Balance 683 / 683 Weight 190 lb <[email or web address] 07/18/17 08:37> - Constitutional no acute distress <MorenaAga 07/18/17 08:37> - *Routine HEENT Exam Head: Present: normocephalic, atraumatic <MorenaAga 07/18/17 08:37> Eye: Present: EOMI, PERRL <MorenaAga 07/18/17 08:37> ENT: Present: mucous membranes moist <MorenaAga 07/18/17 08:37> - *Routine Neck Exam Present: supple, full ROM. Absent: carotid bruit <MorenaAga 07/18/17 08 :37> - *Routine Respiratory Exam Present: CTA bilaterally <MorenaAga 07/18/17 08:37> - *Routine Cardiovascular Exam Present: RRR <MorenaAga 07/18/17 08:37> - *Routine Abdominal Exam Present: soft, normoactive bowel sounds. Absent: tenderness <MorenaAga 07/18/17 08:37> - *Routine Extremities Exam Absent: edema <MorenaAga 07/18/17 08:37> - *Routine Skin Exam Present: intact <Aga Berg 07/18/17 08:37> - *Routine Neurological Exam Present: alert, oriented X3 <Aga Berg - 07/18/17 08:37> H&P: Result - Labs Labs: Short CBC 07/17/17 07/18/17 Range/Units 22:16 06:25 WBC 1.6 L* 2.0 L (4.8-10.8) K/mm3 Hgb 8.8 L 8.8 L (14.1-18.0) g/dL Hct 26.1 L 25.9 L (42.0-52.0) % Plt Count 312 265 (142-424) K/mm3 [facility] 07/17/17 07/18/17 22:16 06:25 Sodium 141 145 Potassium 3.7 3.9 Chloride 106 110 H Carbon Dioxide 28 28 BUN 22 H 22 H Creatinine 0.78 0.72 Glucose 163 H 102 D <SheilaEduardo - 07/18/17 09:05> Short CBC 07/17/17 07/18/17 Range/Units 22:16 06:25 WBC 1.6 L* 2.0 L (4.8-10.8) K/mm3 Hgb 8.8 L 8.8 L (14.1-18.0) g/dL Hct 26.1 L 25.9 L (42.0-52.0) % Plt Count 312 265 (142-424) K/mm3 [facility] 07/17/17 07/18/17 22:16 06:25 Sodium 141 145 Potassium 3.7 3.9 Chloride 106 110 H Carbon Dioxide 28 28 BUN 22 H 22 H Creatinine 0.78 0.72 Glucose 163 H 102 D <Aga Berg 07/18/17 08:37> - Impressions CXR - Chronic airspace disease in the right lower lobe not significantly changed <Aga Berg - 07/18/17 08:37> Assessment and Plan (1) Fever of unknown origin Current visit: Yes Status: Acute Category: Medical Code(s): R50.9 - Fever , unspecified (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 Category: Medical Code(s): C92.00 - Acute myeloblastic leukemia, not having achieved remission (3) Coronary artery disease Current visit: No Status: Chronic Category: Medical Code(s): I25.10 - Atherosclerotic heart disease of [place] coronary artery without angina pectoris (4) Hypertension Current visit: No Status: Chronic Category: Medical Code(s): I10 - Essential (primary) hypertension (5) Presence of stent in right coronary artery Current visit: No Status: Chronic Category: Medical Code(s): Z95.5 - Presence of coronary angioplasty implant and graft (6) Sleep apnea Current visit: No Status: Chronic Category: Medical Code(s): G47.30 - Sleep apnea, unspecified <Eduardo Sosa - 07/18/17 09:05> (1) Fever of unknown origin Current visit: Yes Status: Acute Category: Medical Code(s): R50.9 - Fever , unspecified (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 Category: Medical Code(s): C92.00 - Acute myeloblastic leukemia, not having achieved remission (3) Coronary artery disease Current visit: No Status: Chronic Category: Medical Code(s): I25.10 - Atherosclerotic heart disease of [place] coronary artery without angina pectoris (4) Hypertension Current visit: No Status: Chronic Category: Medical Code(s): I10 - Essential (primary) hypertension (5) Presence of stent in right coronary artery Current visit: No Status: Chronic Category: Medical Code(s): Z95.5 - Presence of coronary angioplasty implant and graft (6) Sleep apnea Current visit: No Status: Chronic Category: Medical Code(s): G47.30 - Sleep apnea, unspecified <Aga Berg - 07/18/17 08:28> - Assessment and plan all Dx Assessment and Plan for all problems:: Saw patient, agree with above note. <Eduardo Sosa - 07/18/17 09:05> Patient's original PICC line was removed and the tip was cultured. The patient has also had blood cultures. Will await test results. <Aga Berg - 07/18/17 08:37>
[2017-07-18 10:28] LABS: Lymphocytes % 62 % (10-50); Monocytes % 4 % (2-9); Myelocytes % 4 (0-1); Neutrophils % 22 % (42-76); Total Cells Counted 50
[2017-07-18 10:29] LABS: Hypochromasia 1+; Rouleaux 1+
[2017-07-18 10:32] LABS: Anisocytosis 1+
[2017-07-18 10:34] LABS: Ovalocytes 1+
--- NOTE | 2017-07-18 11:21 | Pharmacy Consult Notes ---
- Pharmacy Consult Date: 07/18/17 Time: 11:20 Referring provider: DR. SERRANO Reason for Consult:: VANCOMYCIN DOSING Allergies and ADEs:: Allergies Allergy/AdvReac Type Severity Reaction Status Date / Time No Known Allergies Allergy Verified 05/03/17 16:41 Home Medications:: Home Medications Medication Instructions Recorded Confirmed Type Bisoprolol Fumarate [Zebeta 5mg 10 mg PO DAILY 03/28/17 07/18/17 History tablet] Cholecalciferol (Vitamin D3) [D3 2,000 unit PO DAILY 03/28/17 07/18/17 History Dots] Multivit-Min/FA/Lycopen/Lutein 1 each PO DAILY 03/28/17 07/18/17 History [Centrum Silver Tablet] acyclovir 400 mg tablet 400 mg PO TID 05/01/17 07/18/17 History Lisinopril [Lisinopril 40mg Tablet] 40 mg PO DAILY 05/23/17 07/18/17 History Aspirin [Aspirin 81mg EC Tab] 81 mg PO DAILY 06/10/17 07/18/17 History Fluconazole [Diflucan] 400 mg PO DAILY 06/10/17 07/18/17 History Prochlorperazine Maleate 10 mg PO NEEDED PRN 06/10/17 07/18/17 History [Compazine] levoFLOXacin [Levaquin 500mg 500 mg PO DAILY 07/17/17 07/18/17 History tab] Height: 1.78 m Weight: 86.183 kg Laboratory Results:: Laboratory Results - last 24 hr 07/17/17 22:16: Sodium 141, Potassium 3.7, Chloride 106, Carbon Dioxide 28, Anion Gap 10.7, BUN 22 H, Creatinine 0.78, Estimated Creat Clear 81, Estimated GFR 98, Est GFR ( Amer) 118, Glucose 163 H 07/17/17 22:16: Lactic Acid 1.1 07/17/17 22:16: Influenza Type A Ag Negative, Influenza Type B Ag Negative 07/17/17 22:16: WBC 1.6 L*, RBC 2.87 L, Hgb 8.8 L, Hct 26.1 L, MCV 90.9, MCH 30.8, MCHC 33.8, RDW 18.3 H, Plt Count 312, MPV 9.8, Neut % (Auto) 13.4 L, Lymph % (Auto) 70.6 H, [place] % (Auto) 15.4 H, Eos % (Auto) 0.3, Baso % (Auto) 0.2 , Neut # (Auto) 0.2 L*, Lymph # (Auto) 1.1, [place] # (Auto) 0.3, Eos # (Auto) 0.0 , Baso # (Auto) 0.0, Total Counted 50, Neutrophils % (Manual) 20 L, Lymphocytes % (Manual) 72 H, Monocytes % (Manual) 4, Metamyelocytes % 2.0 H, Blast Cells % 2.0, Platelet Estimate Normal, Hypochromasia 1+, Anisocytosis 1+, Ovalocytes 1+ 07/17/17 22:16: ESR 111 H 07/17/17 22:16: C-Reactive Protein 2.9 H 07/18/17 06:25: WBC 2.0 L, RBC 2.83 L, Hgb 8.8 L, Hct 25.9 L, MCV 91.6, MCH 31.0 , MCHC 33.8, RDW 18.4 H, Plt Count 265, MPV 9.5, Neut % (Auto) 15.1 L, Lymph % ( Auto) 75.4 H, [place] % (Auto) 8.7, Eos % (Auto) 0.7, Baso % (Auto) 0.1, Neut # ( Auto) 0.3 L*, Lymph # (Auto) 1.5, [place] # (Auto) 0.2, Eos # (Auto) 0.0, Baso # ( Auto) 0.0, Total Counted 50, Neutrophils % (Manual) 22 L, Band Neutrophils % 4.0 , Lymphocytes % (Manual) 62 H, Monocytes % (Manual) 4, Metamyelocytes % 4.0 H, Myelocytes % 4 H, Platelet Estimate Normal, Hypochromasia 1+, Anisocytosis 1+, Microcytosis 1+, Ovalocytes 1+, [place] 1+ 07/18/17 06:25: Sodium 145, Potassium 3.9, Chloride 110 H, Carbon Dioxide 28, Anion Gap 10.9, BUN 22 H, Creatinine 0.72, Estimated Creat Clear 81, Estimated GFR 107, Est GFR ( Amer) 130, Glucose 102 D Medical History: Reports:: Arrhythmia, Atherosclerotic Heart Disease, Atrial Fibrillation, Cancer (Acute Myelogenous Leukemia, basal cell carcinoma), Coronary Artery Disease, Hyperlipidemia, Hypertension Denies:: Diabetes Mellitus Type 1, Diabetes Mellitus Type 2, MRSA Assessment and Plan (1) Fever of unknown origin Current visit: Yes Status: Acute Category: Medical Code(s): R50.9 - Fever , unspecified (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 Category: Medical Code(s): C92.00 - Acute myeloblastic leukemia, not having achieved remission (3) Coronary artery disease Current visit: No Status: Chronic Category: Medical Code(s): I25.10 - Atherosclerotic heart disease of [place] coronary artery without angina pectoris (4) Hypertension Current visit: No Status: Chronic Category: Medical Code(s): I10 - Essential (primary) hypertension (5) Presence of stent in right coronary artery Current visit: No Status: Chronic Category: Medical Code(s): Z95.5 - Presence of coronary angioplasty implant and graft (6) Sleep apnea Current visit: No Status: Chronic Category: Medical Code(s): G47.30 - Sleep apnea, unspecified - Assessment and plan all Dx Assessment and Plan for all problems:: BASED ON PATIENT FACTORS, RECOMMEND VANCOMYCIN 1750 MG IV ONCE, FOLLOWED BY VANCOMYCIN 1500 MG IV Q12H. PHARMACY WILL FOLLOW DAILY AND ADJUST APPROPRIATE.
[2017-07-18 23:26] LABS: Microscopic, Urine URINE MICROSCOPIC (MICROSCOPIC)
[2017-07-18 23:29] LABS: Appearance,Urine CLEAR (Clear); Bilirubin,Urine Negative (Negative); Blood, Urine Negative (Negative); Color,Urine YELLOW (Yellow); Glucose,Urine (UA) Negative (Negative); Ketones,Urine Negative (Negative); Leukocyte Esterase,Urine Negative (Negative); Protein,Urine Negative (Negative); Specific Gravity, Urine >= 1.030 (1.005-1.030); Urobilinogen,Urine 0.2 EU/dl (0.2)
[2017-07-18 23:41] LABS: Bacteria,Urine 1+ /lpf; Uric Acid Crystals,Urine 2+ /lpf
--- NOTE | 2017-07-19 08:18 | Progress Note ---
<Aga Berg - Last Filed: 07/19/17 08:16> Internal Medicine - PN: Subj *Date: 07/19/17 *Time: 08:16 Interval history: Patient has no new complaints this a.m. His states he did run fevers throughout the day yesterday of up to 102. He denies any other symptoms or any pain. He states he slept well and has been eating well. Exam Vital signs and Labs for Last 24 Hours: Temp Pulse Resp BP Pulse Ox 98.4 F 63 20 130/63 97 07/19/17 07:31 07/19/17 07:31 07/19/17 07:31 07/19/17 07:31 07/19/17 07:31 Laboratory Results - last 24 hr 07/18/17 06:25: Total Counted 50, Neutrophils % (Manual) 22 L, Band Neutrophils % 4.0, Lymphocytes % (Manual) 62 H, Monocytes % (Manual) 4, Metamyelocytes % 4.0 H, Myelocytes % 4 H, Platelet Estimate Normal, Hypochromasia 1+, Anisocytosis 1+, Microcytosis 1+, Ovalocytes 1+, Rouleaux 1+ 07/18/17 23:01: Urine Color Yellow, Urine Appearance Clear, Urine pH 5.0, Ur Specific [place] >= 1.030, Urine Protein Negative, Urine Glucose (UA) Negative, Urine Ketones Negative, Urine Blood Negative, Urine Nitrate Negative, Urine Bilirubin Negative, Urine Urobilinogen 0.2, Ur Leukocyte Esterase Negative, Urine WBC 3-5, Ur Squamous Epith Cells 3-5, Uric Acid Crystals 2+, Urine Bacteria 1+, Hyaline Casts 3-5 I & O for Last 24 hours: Intake & Output 07/16/17 07/17/17 07/18/17 07/19/17 11:59 11:59 11:59 11:59 Intake Total 683 / 683 2939 / 2939 Balance 683 / 683 2939 / 2939 Weight 190 lb Microbiology Reports for the Last 24 Hours: Microbiology 07/18/17 00:00 Catheter Tip - Other Catheter Tip Culture - Preliminary NO GROWTH AFTER 24 HOURS 07/17/17 22:16 Blood Blood Culture - Preliminary NO GROWTH AFTER 24 HOURS 07/17/17 22:16 Blood Blood Culture - Preliminary NO GROWTH AFTER 24 HOURS - Constitutional no acute distress - *Routine Respiratory Exam Present: CTA bilaterally - *Routine Cardiovascular Exam Present: RRR - *Routine Abdominal Exam Present: soft, normoactive bowel sounds. 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 Category: Medical Code(s): C92.00 - Acute myeloblastic leukemia, not having achieved remission (3) Coronary artery disease Current visit: No Status: Chronic Category: Medical Code(s): I25.10 - Atherosclerotic heart disease of [place] coronary artery without angina pectoris (4) Hypertension Current visit: No Status: Chronic Category: Medical Code(s): I10 - Essential (primary) hypertension (5) Presence of stent in right coronary artery Current visit: No Status: Chronic Category: Medical Code(s): Z95.5 - Presence of coronary angioplasty implant and graft (6) Sleep apnea Current visit: No Status: Chronic Category: Medical Code(s): G47.30 - Sleep apnea, unspecified - Assessment and plan all Dx Assessment and Plan for all problems:: Preliminary cultures from the blood and the PICC line show no growth. Will discuss further care with Dr. Sosa. <Eduardo Sosa - Last Filed: 07/19/17 08:44> Internal Medicine - PN: Subj *Date: 07/19/17 *Time: 08:43 Exam Vital signs and Labs for Last 24 Hours: Temp Pulse Resp BP Pulse Ox 98.4 F 63 20 130/63 97 07/19/17 07:31 07/19/17 07:31 07/19/17 07:31 07/19/17 07:31 07/19/17 07:31 Laboratory Results - last 24 hr 07/18/17 06:25: Total Counted 50, Neutrophils % (Manual) 22 L, Band Neutrophils % 4.0, Lymphocytes % (Manual) 62 H, Monocytes % (Manual) 4, Metamyelocytes % 4.0 H, Myelocytes % 4 H, Platelet Estimate Normal, Hypochromasia 1+, Anisocytosis 1+, Microcytosis 1+, Ovalocytes 1+, [place] 1+ 07/18/17 23:01: Urine Color Yellow, Urine Appearance Clear, Urine pH 5.0, Ur Specific [place] >= 1.030, Urine Protein Negative, Urine Glucose (UA) Negative, Urine Ketones Negative, Urine Blood Negative, Urine Nitrate Negative, Urine Bilirubin Negative, Urine Urobilinogen 0.2, Ur Leukocyte Esterase Negative, Urine WBC 3-5, Ur Squamous Epith Cells 3-5, Uric Acid Crystals 2+, Urine Bacteria 1+, Hyaline Casts 3-5 I & O for Last 24 hours: Intake & Output 07/16/17 07/17/17 07/18/17 07/19/17 11:59 11:59 11:59 11:59 Intake Total 683 / 683 2939 / 2939 Balance 683 / 683 2939 / 2939 Weight 190 lb Microbiology Reports for the Last 24 Hours: Microbiology 07/18/17 00:00 Catheter Tip - Other Catheter Tip Culture - Preliminary NO GROWTH AFTER 24 HOURS 07/17/17 22:16 Blood Blood Culture - Preliminary NO GROWTH AFTER 24 HOURS 07/17/17 22:16 Blood Blood Culture - Preliminary NO GROWTH AFTER 24 HOURS Assessment and Plan (1) Fever of unknown origin Current visit: Yes Status: Acute Category: Medical Code(s): R50.9 - Fever , unspecified (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 Category: Medical Code(s): C92.00 - Acute myeloblastic leukemia, not having achieved remission (3) Coronary artery disease Current visit: No Status: Chronic Category: Medical Code(s): I25.10 - Atherosclerotic heart disease of [place] coronary artery without angina pectoris (4) Hypertension Current visit: No Status: Chronic Category: Medical Code(s): I10 - Essential (primary) hypertension (5) Presence of stent in right coronary artery Current visit: No Status: Chronic Category: Medical Code(s): Z95.5 - Presence of coronary angioplasty implant and graft (6) Sleep apnea Current visit: No Status: Chronic Category: Medical Code(s): G47.30 - Sleep apnea, unspecified - Assessment and plan all Dx Assessment and Plan for all problems:: Saw patient, concur with above note, cont. antibiotics as patient was febrile last night, await cultures.
[2017-07-20 07:19] LABS: Anion Gap 13.3 mEq/L (5-15); Potassium 3.3 mmoL/L (3.5-5.1)
[2017-07-20 07:25] LABS: Basophils % 0.2 % (0.1-2.0); Eosinophils % 0.2 % (0.1-12.0); Lymphocytes # 1.2 K/mm3 (0.7-4.5); Lymphocytes % 72.5 K/mm3 (10-50); Mean Corpuscular HGB Conc 33.6 g/dL (31.8-35.4); Mean Corpuscular Hemoglobin 30.9 pg (27.0-31.2); Mean Corpuscular Volume 91.8 fl (80-94); Mean Platelet Volume 9.6 fl (7.4-10.4); Monocytes # 0.2 K/mm3 (0.1-1.0); Monocytes % 9.5 % (1.7-9.3); Neutrophils # 0.3 K/mm3 (1.8-7.8); Neutrophils % 17.7 % (37.0-80.0); Platelet Count 263 K/mm3 (142-424); Red Blood Count 2.54 M/mm3 (4.60-6.20); Red Cell Distribution Width 19.8 % (11.5-17.5); White Blood Count 1.7 K/mm3 (4.8-10.8)
[2017-07-20 07:27] LABS: Hematocrit 23.3 % (42.0-52.0); Hemoglobin 7.8 g/dL (14.1-18.0)
--- NOTE | 2017-07-20 08:36 | Progress Note ---
<Aga Berg - Last Filed: 07/20/17 08:34> Internal Medicine - PN: Subj *Date: 07/20/17 *Time: 08:34 Interval history: Patient states he is feeling well today. He has no new complaints. He did run a fever throughout yesterday afternoon. He slept well and ate well this morning. Exam Vital signs and Labs for Last 24 Hours: Temp Pulse Resp BP Pulse Ox 99.3 F 77 16 110/65 94 L 07/20/17 07:49 07/20/17 07:49 07/20/17 07:49 07/20/17 07:49 07/20/17 07:49 Laboratory Results - last 24 hr 07/19/17 12:14: Vancomycin Trough 4.8 L 07/20/17 06:35: WBC 1.7 L*, RBC 2.54 L, Hgb 7.8 L*, Hct 23.3 L*, MCV 91.8, MCH 30.9, MCHC 33.6, RDW 19.8 H, Plt Count 263, MPV 9.6, Neut % (Auto) 17.7 L, Lymph % (Auto) 72.5 H, [place] % (Auto) 9.5 H, Eos % (Auto) 0.2, Baso % (Auto) 0.2 , Neut # (Auto) 0.3 L*, Lymph # (Auto) 1.2, [place] # (Auto) 0.2, Eos # (Auto) 0.0 , Baso # (Auto) 0.0 07/20/17 06:35: Sodium 144, Potassium 3.3 L, Chloride 109 H, Carbon Dioxide 25, Anion Gap 13.3, BUN 14 D, Creatinine 0.64 L, Estimated Creat Clear 81, Estimated GFR 123, Est GFR ( Amer) 149, Glucose 92 I & O for Last 24 hours: Intake & Output 07/17/17 07/18/17 07/19/17 07/20/17 11:59 11:59 11:59 11:59 Intake Total 683 / 683 2939 / 2939 1531 / 1531 Balance 683 / 683 2939 / 2939 1531 / 1531 Weight 190 lb 190 lb 0.016 oz Microbiology Reports for the Last 24 Hours: Microbiology 07/17/17 22:16 Blood Blood Culture - Preliminary NO GROWTH AFTER 48 HOURS 07/17/17 22:16 Blood Blood Culture - Preliminary NO GROWTH AFTER 48 HOURS 07/18/17 00:00 Catheter Tip - Other Catheter Tip Culture - Preliminary NO GROWTH AFTER 24 HOURS - Constitutional no acute distress - *Routine Respiratory Exam Present: CTA bilaterally - *Routine Cardiovascular Exam Present: RRR - *Routine Abdominal Exam Present: soft, normoactive bowel sounds. 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 Category: Medical Code(s): C92.00 - Acute myeloblastic leukemia, not having achieved remission (3) Coronary artery disease Current visit: No Status: Chronic Category: Medical Code(s): I25.10 - Atherosclerotic heart disease of [place] coronary artery without angina pectoris (4) Hypertension Current visit: No Status: Chronic Category: Medical Code(s): I10 - Essential (primary) hypertension (5) Presence of stent in right coronary artery Current visit: No Status: Chronic Category: Medical Code(s): Z95.5 - Presence of coronary angioplasty implant and graft (6) Sleep apnea Current visit: No Status: Chronic Category: Medical Code(s): G47.30 - Sleep apnea, unspecified (7) Anemia Current visit: Yes Status: Acute Category: Medical Code(s): D64.9 - Anemia , unspecified - Assessment and plan all Dx Assessment and Plan for all problems:: Patient's cultures are still normal. His H&H has dropped today. Will discuss possible transfusion with Dr. Sosa. <Eduardo Sosa - Last Filed: 07/20/17 09:17> Internal Medicine - PN: Subj *Date: 07/20/17 *Time: 09:16 Exam Vital signs and Labs for Last 24 Hours: Temp Pulse Resp BP Pulse Ox 99.3 F 77 16 110/65 94 L 07/20/17 07:49 07/20/17 07:49 07/20/17 07:49 07/20/17 07:49 07/20/17 07:49 Laboratory Results - last 24 hr 07/19/17 12:14: Vancomycin Trough 4.8 L 07/20/17 06:35: WBC 1.7 L*, RBC 2.54 L, Hgb 7.8 L*, Hct 23.3 L*, MCV 91.8, MCH 30.9, MCHC 33.6, RDW 19.8 H, Plt Count 263, MPV 9.6, Neut % (Auto) 17.7 L, Lymph % (Auto) 72.5 H, [place] % (Auto) 9.5 H, Eos % (Auto) 0.2, Baso % (Auto) 0.2 , Neut # (Auto) 0.3 L*, Lymph # (Auto) 1.2, [place] # (Auto) 0.2, Eos # (Auto) 0.0 , Baso # (Auto) 0.0 07/20/17 06:35: Sodium 144, Potassium 3.3 L, Chloride 109 H, Carbon Dioxide 25, Anion Gap 13.3, BUN 14 D, Creatinine 0.64 L, Estimated Creat Clear 81, Estimated GFR 123, Est GFR ( Amer) 149, Glucose 92 I & O for Last 24 hours: Intake & Output 07/17/17 07/18/17 07/19/17 07/20/17 11:59 11:59 11:59 11:59 Intake Total 683 / 683 2939 / 2939 1531 / 1531 Balance 683 / 683 2939 / 2939 1531 / 1531 Weight 190 lb 190 lb 0.016 oz Microbiology Reports for the Last 24 Hours: Microbiology 07/17/17 22:16 Blood Blood Culture - Preliminary NO GROWTH AFTER 48 HOURS 07/17/17 22:16 Blood Blood Culture - Preliminary NO GROWTH AFTER 48 HOURS 07/18/17 00:00 Catheter Tip - Other Catheter Tip Culture - Preliminary NO GROWTH AFTER 24 HOURS Assessment and Plan (1) Fever of unknown origin Current visit: Yes Status: Acute Category: Medical Code(s): R50.9 - Fever , unspecified (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 Category: Medical Code(s): C92.00 - Acute myeloblastic leukemia, not having achieved remission (3) Coronary artery disease Current visit: No Status: Chronic Category: Medical Code(s): I25.10 - Atherosclerotic heart disease of [place] coronary artery without angina pectoris (4) Hypertension Current visit: No Status: Chronic Category: Medical Code(s): I10 - Essential (primary) hypertension (5) Presence of stent in right coronary artery Current visit: No Status: Chronic Category: Medical Code(s): Z95.5 - Presence of coronary angioplasty implant and graft (6) Sleep apnea Current visit: No Status: Chronic Category: Medical Code(s): G47.30 - Sleep apnea, unspecified (7) Anemia Current visit: Yes Status: Acute Category: Medical Code(s): D64.9 - Anemia , unspecified (8) Hypokalemia Current visit: Yes Status: Acute Category: Medical Code(s): E87.6 - Hypokalemia - Assessment and plan all Dx Assessment and Plan for all problems:: Saw patient, will recheck H/H tomorrow, replace potassium, encourage patient to wear YOGESH hose.
[2017-07-20 09:18] LABS: Lymphocytes % 57 % (10-50); Monocytes % 16 % (2-9); Neutrophils % 27 % (42-76); Total Cells Counted 100
[2017-07-20 09:19] LABS: Anisocytosis 1+
[2017-07-21 05:56] LABS: Basophils % 0.2 % (0.1-2.0); Eosinophils % 0.5 % (0.1-12.0); Lymphocytes # 1.1 K/mm3 (0.7-4.5); Lymphocytes % 76.1 K/mm3 (10-50); Mean Corpuscular HGB Conc 33.4 g/dL (31.8-35.4); Mean Corpuscular Hemoglobin 30.8 pg (27.0-31.2); Mean Corpuscular Volume 92.2 fl (80-94); Monocytes # 0.1 K/mm3 (0.1-1.0); Neutrophils # 0.2 K/mm3 (1.8-7.8); Platelet Count 280 K/mm3 (142-424); Red Blood Count 2.35 M/mm3 (4.60-6.20); Red Cell Distribution Width 19.9 % (11.5-17.5); White Blood Count 1.5 K/mm3 (4.8-10.8)
[2017-07-21 06:02] LABS: Hematocrit 21.7 % (42.0-52.0); Hemoglobin 7.2 g/dL (14.1-18.0); Neutrophils % 14.1 % (37.0-80.0)
[2017-07-21 06:06] LABS: Anion Gap 9.4 mEq/L (5-15); Potassium 3.4 mmoL/L (3.5-5.1)
[2017-07-21 06:21] LABS: Anisocytosis 1+; Lymphocytes % 68 % (10-50); Monocytes % 20 % (2-9); Neutrophils % 12 % (42-76); Polychromasia 2+; Rouleaux 2+; Total Cells Counted 50
--- NOTE | 2017-07-21 09:33 | Progress Note ---
Internal Medicine - PN: Subj *Date: 07/21/17 *Time: 09:31 Interval history: Patient with no new complaints today. Exam Vital signs and Labs for Last 24 Hours: Temp Pulse Resp BP Pulse Ox 98.0 F 70 18 157/67 93 L 07/21/17 07:57 07/21/17 07:57 07/21/17 07:57 07/21/17 07:57 07/21/17 07:57 Laboratory Results - last 24 hr 07/21/17 05:35: WBC 1.5 L*, RBC 2.35 L, Hgb 7.2 L*, Hct 21.7 L*, MCV 92.2, MCH 30.8, MCHC 33.4, RDW 19.9 H, Plt Count 280, MPV 10.0, Neut % (Auto) 14.1 L, Lymph % (Auto) 76.1 H, [place] % (Auto) 9.0, Eos % (Auto) 0.5, Baso % (Auto) 0.2, Neut # (Auto) 0.2 L*, Lymph # (Auto) 1.1, [place] # (Auto) 0.1, Eos # (Auto) 0.0, Baso # (Auto) 0.0, Total Counted 50, Neutrophils % (Manual) 12 L, Lymphocytes % (Manual) 68 H, Monocytes % (Manual) 20 H, Platelet Estimate Normal, Polychromasia 2+, Poikilocytosis 2+, Anisocytosis 1+, Rouleaux 2+ 07/21/17 05:35: Sodium 143, Potassium 3.4 L, Chloride 110 H, Carbon Dioxide 27, Anion Gap 9.4, BUN 14, Creatinine 0.78 D, Estimated Creat Clear 81, Estimated GFR 98, Est GFR ( Amer) 118 D, Glucose 95 Vital Signs Temp Pulse Resp BP BP Pulse Ox 07/21/17 07:57 98.0 F 70 18 157/67 93 L 07/21/17 03:52 100.8 F H 84 18 131/69 92 L 07/21/17 00:00 99.3 F 07/20/17 22:30 100.3 F H 07/20/17 20:00 99.8 F H 76 18 137/68 95 07/20/17 16:00 97.7 F 71 16 121/59 98 Intake and Output 07/20/17 07/21/17 07/21/17 19:59 03:59 11:59 Intake Total 1291 / 1291 Balance 1291 / 1291 Intake: Intake, Total IV Amount 1291 / 1291 0.9 % Sodium Chloride 1,000 ml 1291 / 1291 @ 75 mls/hr IV .[id number] CELESTINO Rx# :[id number] Other: Number of Unmeasured Voids 3 1 I & O for Last 24 hours: Intake & Output 07/18/17 07/19/17 07/20/17 07/21/17 11:59 11:59 11:59 11:59 Intake Total 683 / 683 2939 / 2939 1531 / 1531 1291 / 1291 Balance 683 / 683 2939 / 2939 1531 / 1531 1291 / 1291 Weight 190 lb 190 lb 0.016 oz Microbiology Reports for the Last 24 Hours: Microbiology 07/17/17 22:16 Blood Blood Culture - Preliminary NO GROWTH AFTER 72 HOURS 07/17/17 22:16 Blood Blood Culture - Preliminary NO GROWTH AFTER 72 HOURS - Constitutional no acute distress - *Routine HEENT Exam ENT: Present: mucous membranes moist - *Routine Respiratory Exam Present: CTA bilaterally - *Routine Cardiovascular Exam Present: RRR Assessment and Plan (1) Fever of unknown origin Current visit: Yes Status: Acute Category: Medical Code(s): R50.9 - Fever , unspecified (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 Category: Medical Code(s): C92.00 - Acute myeloblastic leukemia, not having achieved remission (3) Coronary artery disease Current visit: No Status: Chronic Category: Medical Code(s): I25.10 - Atherosclerotic heart disease of [place] coronary artery without angina pectoris (4) Hypertension Current visit: No Status: Chronic Category: Medical Code(s): I10 - Essential (primary) hypertension (5) Presence of stent in right coronary artery Current visit: No Status: Chronic Category: Medical Code(s): Z95.5 - Presence of coronary angioplasty implant and graft (6) Sleep apnea Current visit: No Status: Chronic Category: Medical Code(s): G47.30 - Sleep apnea, unspecified (7) Anemia Current visit: Yes Status: Acute Category: Medical Code(s): D64.9 - Anemia , unspecified (8) Hypokalemia Current visit: Yes Status: Acute Category: Medical Code(s): E87.6 - Hypokalemia - Assessment and plan all Dx Assessment and Plan for all problems:: Patient is stable, T max is slowly improving, continue current treatment, recheck labs tomorrow.
--- NOTE | 2017-07-21 12:05 | Pharmacy Consult Notes ---
- Pharmacy Consult Date: 07/21/17 Time: 12:04 Referring provider: DR. SERRANO Reason for Consult:: VANCOMYCIN TROUGH AND DOSE CHANGE Allergies and ADEs:: Allergies Allergy/AdvReac Type Severity Reaction Status Date / Time No Known Allergies Allergy Verified 05/03/17 16:41 Home Medications:: Home Medications Medication Instructions Recorded Confirmed Type Bisoprolol Fumarate [Zebeta 5mg 10 mg PO DAILY 03/28/17 07/18/17 History tablet] Cholecalciferol (Vitamin D3) [D3 2,000 unit PO DAILY 03/28/17 07/18/17 History Dots] Multivit-Min/FA/Lycopen/Lutein 1 each PO DAILY 03/28/17 07/18/17 History [Centrum Silver Tablet] acyclovir 400 mg tablet 400 mg PO TID 05/01/17 07/18/17 History Lisinopril [Lisinopril 40mg Tablet] 40 mg PO DAILY 05/23/17 07/18/17 History Aspirin [Aspirin 81mg EC Tab] 81 mg PO DAILY 06/10/17 07/18/17 History Fluconazole [Diflucan] 400 mg PO DAILY 06/10/17 07/18/17 History Prochlorperazine Maleate 10 mg PO NEEDED PRN 06/10/17 07/18/17 History [Compazine] levoFLOXacin [Levaquin 500mg 500 mg PO DAILY 07/17/17 07/18/17 History tab] Height: 1.78 m Weight: 86.183 kg Laboratory Results:: Laboratory Results - last 24 hr 07/21/17 05:35: WBC 1.5 L*, RBC 2.35 L, Hgb 7.2 L*, Hct 21.7 L*, MCV 92.2, MCH 30.8, MCHC 33.4, RDW 19.9 H, Plt Count 280, MPV 10.0, Neut % (Auto) 14.1 L, Lymph % (Auto) 76.1 H, [place] % (Auto) 9.0, Eos % (Auto) 0.5, Baso % (Auto) 0.2, Neut # (Auto) 0.2 L*, Lymph # (Auto) 1.1, [place] # (Auto) 0.1, Eos # (Auto) 0.0, Baso # (Auto) 0.0, Total Counted 50, Neutrophils % (Manual) 12 L, Lymphocytes % (Manual) 68 H, Monocytes % (Manual) 20 H, Platelet Estimate Normal, Polychromasia 2+, Poikilocytosis 2+, Anisocytosis 1+, Rouleaux 2+ 07/21/17 05:35: Sodium 143, Potassium 3.4 L, Chloride 110 H, Carbon Dioxide 27, Anion Gap 9.4, BUN 14, Creatinine 0.78 D, Estimated Creat Clear 81, Estimated GFR 98, Est GFR ( Amer) 118 D, Glucose 95 07/21/17 10:15: Vancomycin Trough 9.0 L Medical History: Reports:: Arrhythmia, Atherosclerotic Heart Disease, Atrial Fibrillation, Cancer (Acute Myelogenous Leukemia, basal cell carcinoma), Coronary Artery Disease, Hyperlipidemia, Hypertension Denies:: Diabetes Mellitus Type 1, Diabetes Mellitus Type 2, MRSA Assessment and Plan (1) Fever of unknown origin Current visit: Yes Status: Acute Category: Medical Code(s): R50.9 - Fever , unspecified (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 Category: Medical Code(s): C92.00 - Acute myeloblastic leukemia, not having achieved remission (3) Coronary artery disease Current visit: No Status: Chronic Category: Medical Code(s): I25.10 - Atherosclerotic heart disease of [place] coronary artery without angina pectoris (4) Hypertension Current visit: No Status: Chronic Category: Medical Code(s): I10 - Essential (primary) hypertension (5) Presence of stent in right coronary artery Current visit: No Status: Chronic Category: Medical Code(s): Z95.5 - Presence of coronary angioplasty implant and graft (6) Sleep apnea Current visit: No Status: Chronic Category: Medical Code(s): G47.30 - Sleep apnea, unspecified (7) Anemia Current visit: Yes Status: Acute Category: Medical Code(s): D64.9 - Anemia , unspecified (8) Hypokalemia Current visit: Yes Status: Acute Category: Medical Code(s): E87.6 - Hypokalemia - Assessment and plan all Dx Assessment and Plan for all problems:: BASED ON PATIENT'S VANCOMYCIN TROUGH OF 9.0 MCG/ML, RECOMMEND INCREASING THE DOSE TO VANCOMYCIN 1750 MG Q12H AT THIS TIME. PHARMACY WILL FOLLOW DAILY AND ADJUST APPROPRIATE. SONJA SAHU, PHARMD
--- NOTE | 2017-07-21 14:20 | Progress Note ---
Internal Medicine - PN: Subj *Date: 07/21/17 *Time: 14:19 Exam Vital signs and Labs for Last 24 Hours: Temp Pulse Resp BP Pulse Ox 98.0 F 70 18 157/67 93 L 07/21/17 07:57 07/21/17 07:57 07/21/17 07:57 07/21/17 07:57 07/21/17 07:57 Laboratory Results - last 24 hr 07/21/17 05:35: WBC 1.5 L*, RBC 2.35 L, Hgb 7.2 L*, Hct 21.7 L*, MCV 92.2, MCH 30.8, MCHC 33.4, RDW 19.9 H, Plt Count 280, MPV 10.0, Neut % (Auto) 14.1 L, Lymph % (Auto) 76.1 H, [place] % (Auto) 9.0, Eos % (Auto) 0.5, Baso % (Auto) 0.2, Neut # (Auto) 0.2 L*, Lymph # (Auto) 1.1, [place] # (Auto) 0.1, Eos # (Auto) 0.0, Baso # (Auto) 0.0, Total Counted 50, Neutrophils % (Manual) 12 L, Lymphocytes % (Manual) 68 H, Monocytes % (Manual) 20 H, Platelet Estimate Normal, Polychromasia 2+, Poikilocytosis 2+, Anisocytosis 1+, [place]le[place] 2+ 07/21/17 05:35: Sodium 143, Potassium 3.4 L, Chloride 110 H, Carbon Dioxide 27, Anion Gap 9.4, BUN 14, Creatinine 0.78 D, Estimated Creat Clear 81, Estimated GFR 98, Est GFR ( Amer) 118 D, Glucose 95 07/21/17 10:15: Vancomycin Trough 9.0 L I & O for Last 24 hours: Intake & Output 07/18/17 07/19/17 07/20/17 07/21/17 23:59 23:59 23:59 23:59 Intake Total 2026 499 / 499 Balance 2026 499 / 499 Weight 86.183 kg 86.183 kg 86.183 kg Microbiology Reports for the Last 24 Hours: Microbiology 07/17/17 22:16 Blood Blood Culture - Preliminary NO GROWTH AFTER 72 HOURS 07/17/17 22:16 Blood Blood Culture - Preliminary NO GROWTH AFTER 72 HOURS Assessment and Plan (1) Fever of unknown origin Current visit: Yes Status: Acute Category: Medical Code(s): R50.9 - Fever , unspecified (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 Category: Medical Code(s): C92.00 - Acute myeloblastic leukemia, not having achieved remission (3) Coronary artery disease Current visit: No Status: Chronic Category: Medical Code(s): I25.10 - Atherosclerotic heart disease of [place] coronary artery without angina pectoris (4) Hypertension Current visit: No Status: Chronic Category: Medical Code(s): I10 - Essential (primary) hypertension (5) Presence of stent in right coronary artery Current visit: No Status: Chronic Category: Medical Code(s): Z95.5 - Presence of coronary angioplasty implant and graft (6) Sleep apnea Current visit: No Status: Chronic Category: Medical Code(s): G47.30 - Sleep apnea, unspecified (7) Anemia Current visit: Yes Status: Acute Category: Medical Code(s): D64.9 - Anemia , unspecified (8) Hypokalemia Current visit: Yes Status: Acute Category: Medical Code(s): E87.6 - Hypokalemia The patient's infection will respond to the chosen ABx?: Yes Is the patient receiving the right drug, dose, and route?: Yes Could a more targeted ABx be ordered?: No (CULTURE NEGATIVE AT THIS TIME, PATIENT IMPROVING)
[2017-07-22 07:05] LABS: Basophils % 0.2 % (0.1-2.0); Lymphocytes % 72.2 K/mm3 (10-50); Mean Corpuscular HGB Conc 33.3 g/dL (31.8-35.4); Mean Corpuscular Hemoglobin 31.1 pg (27.0-31.2); Mean Corpuscular Volume 93.3 fl (80-94); Mean Platelet Volume 9.9 fl (7.4-10.4); Monocytes # 0.1 K/mm3 (0.1-1.0); Neutrophils # 0.2 K/mm3 (1.8-7.8); Neutrophils % 16.6 % (37.0-80.0); Platelet Count 289 K/mm3 (142-424); Red Blood Count 2.46 M/mm3 (4.60-6.20); White Blood Count 1.3 K/mm3 (4.8-10.8)
[2017-07-22 07:13] LABS: Anion Gap 11.7 mEq/L (5-15); Potassium 3.7 mmoL/L (3.5-5.1)
[2017-07-22 07:15] LABS: Hemoglobin 7.7 g/dL (14.1-18.0)
--- NOTE | 2017-07-22 09:18 | Progress Note ---
Internal Medicine - PN: Subj *Date: 07/22/17 *Time: 09:15 Interval history: Patient with no new complaints today. Exam Vital signs and Labs for Last 24 Hours: Temp Pulse Resp BP Pulse Ox 99.4 F 111 H 18 130/68 92 L 07/22/17 07:47 07/22/17 07:47 07/22/17 07:47 07/22/17 07:47 07/22/17 07:47 Laboratory Results - last 24 hr 07/21/17 10:15: Vancomycin Trough 9.0 L 07/22/17 06:28: WBC 1.3 L*, RBC 2.46 L, Hgb 7.7 L*, Hct 23.0 L*, MCV 93.3, MCH 31.1, MCHC 33.3, RDW 20.0 H, Plt Count 289, MPV 9.9, Neut % (Auto) 16.6 L, Lymph % (Auto) 72.2 H, [place] % (Auto) 10.0 H, Eos % (Auto) 1.0, Baso % (Auto) 0.2 , Neut # (Auto) 0.2 L*, Lymph # (Auto) 1.0, [place] # (Auto) 0.1, Eos # (Auto) 0.0 , Baso # (Auto) 0.0 07/22/17 06:28: Sodium 145, Potassium 3.7, Chloride 111 H, Carbon Dioxide 26, Anion Gap 11.7, BUN 15, Creatinine 1.00 D, Estimated Creat Clear 81, Estimated GFR 73, Est GFR ( Amer) 89 D, Glucose 98 Vital Signs Temp Pulse Resp BP Pulse Ox 07/22/17 07:47 99.4 F 111 H 18 130/68 92 L 07/22/17 04:56 99.4 F 70 18 169/81 94 L 07/22/17 00:56 99.2 F 07/21/17 22:00 100.4 F H 07/21/17 20:15 98 07/21/17 19:24 97.4 F L 62 16 149/66 98 07/21/17 15:43 98.3 F 65 18 126/58 98 Intake and Output 07/21/17 07/22/17 07/22/17 19:59 03:59 11:59 Intake Total 960 / 960 360 / 360 Balance 960 / 960 360 / 360 Intake: Intake, Oral Amount 960 / 960 360 / 360 Other: Number of Voids 6 Weight 190 lb 0.016 oz Patient Weight 07/22/17 11:59 Weight 190 lb 0.016 oz I & O for Last 24 hours: Intake & Output 07/19/17 07/20/17 07/21/17 07/22/17 11:59 11:59 11:59 11:59 Intake Total 2939 / 2939 1531 / 1531 1291 / 1291 1320 / 1320 Balance 2939 / 2939 1531 / 1531 1291 / 1291 1320 / 1320 Weight 190 lb 0.016 oz 190 lb 0.016 oz Microbiology Reports for the Last 24 Hours: Microbiology 07/17/17 22:16 Blood Blood Culture - Preliminary NO GROWTH AFTER 4 DAYS 07/17/17 22:16 Blood Blood Culture - Preliminary NO GROWTH AFTER 4 DAYS - Constitutional no acute distress - *Routine HEENT Exam ENT: Present: mucous membranes moist - *Routine Respiratory Exam Present: CTA bilaterally - *Routine Cardiovascular Exam Present: RRR - *Routine Extremities Exam Absent: cyanosis, clubbing, edema Assessment and Plan (1) Fever of unknown origin Current visit: Yes Status: Acute Category: Medical Code(s): R50.9 - Fever , unspecified (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 coronary artery without angina pectoris (4) Hypertension Current visit: No Status: Chronic Category: Medical Code(s): I10 - Essential (primary) hypertension (5) Presence of stent in right coronary artery Current visit: No Status: Chronic Category: Medical Code(s): Z95.5 - Presence of coronary angioplasty implant and graft (6) Sleep apnea Current visit: No Status: Chronic Category: Medical Code(s): G47.30 - Sleep apnea, unspecified (7) Anemia Current visit: Yes Status: Acute Category: Medical Code(s): D64.9 - Anemia , unspecified (8) Hypokalemia Current visit: Yes Status: Resolved Category: Medical Code(s): E87.6 - Hypokalemia - Assessment and plan all Dx Assessment and Plan for all problems:: Patient finally afebrile for 24 hours, T max 100.4 yesterday. Will await Heme/ Onc recs as far as continued antibiotic treatment and placing a new PICC line.
[2017-07-22 12:22] LABS: Eosinophils % 4 % (0-3); Lymphocytes % 52 % (10-50); Monocytes % 24 % (2-9); Neutrophils % 20 % (42-76); RBC Morphology Normal; Total Cells Counted 25
[2017-07-23 08:41] LABS: Anion Gap 9.9 mEq/L (5-15); Potassium 3.9 mmoL/L (3.5-5.1)
[2017-07-23 08:42] LABS: Basophils % 0.1 % (0.1-2.0); Eosinophils % 2.2 % (0.1-12.0); Hematocrit 26.6 % (42.0-52.0); Hemoglobin 8.7 g/dL (14.1-18.0); Lymphocytes # 0.9 K/mm3 (0.7-4.5); Lymphocytes % 74.2 K/mm3 (10-50); Mean Corpuscular HGB Conc 32.6 g/dL (31.8-35.4); Mean Corpuscular Hemoglobin 30.4 pg (27.0-31.2); Mean Corpuscular Volume 93.4 fl (80-94); Mean Platelet Volume 10.3 fl (7.4-10.4); Monocytes # 0.1 K/mm3 (0.1-1.0); Neutrophils # 0.2 K/mm3 (1.8-7.8); Platelet Count 241 K/mm3 (142-424); Red Blood Count 2.85 M/mm3 (4.60-6.20); Red Cell Distribution Width 19.1 % (11.5-17.5); White Blood Count 1.2 K/mm3 (4.8-10.8)
[2017-07-23 08:49] LABS: Neutrophils % 13.4 % (37.0-80.0)
--- NOTE | 2017-07-23 09:06 | Progress Note ---
Internal Medicine - PN: Subj *Date: 07/23/17 *Time: 09:04 Interval history: Patient with no new complaints today. Exam Vital signs and Labs for Last 24 Hours: Temp Pulse Resp BP Pulse Ox 99.0 F 69 20 163/81 91 L 07/23/17 07:13 07/23/17 07:13 07/23/17 07:13 07/23/17 07:13 07/23/17 07:13 Laboratory Results - last 24 hr 07/22/17 06:28: Total Counted 25, Neutrophils % (Manual) 20 L, Lymphocytes % ( Manual) 52 H, Monocytes % (Manual) 24 H, Eosinophils % (Manual) 4 H, Platelet Estimate Normal, RBC Morphology Normal 07/22/17 18:05: Blood Type O Positive, Antibody Screen Negative, Crossmatch ([facility] ) See Detail 07/23/17 08:15: WBC 1.2 L*, RBC 2.85 L, Hgb 8.7 L, Hct 26.6 L, MCV 93.4, MCH 30.4, MCHC 32.6, RDW 19.1 H, Plt Count 241, MPV 10.3, Neut % (Auto) 13.4 L, Lymph % (Auto) 74.2 H, [place] % (Auto) 10.0 H, Eos % (Auto) 2.2, Baso % (Auto) 0.1 , Neut # (Auto) 0.2 L*, Lymph # (Auto) 0.9, [place] # (Auto) 0.1, Eos # (Auto) 0.0 , Baso # (Auto) 0.0 Vital Signs Temp Pulse Pulse Resp BP BP Pulse Ox 07/23/17 07:13 99.0 F 69 20 163/81 91 L 07/23/17 06:50 99.1 F 62 21 166/81 93 L 07/23/17 05:50 98.7 F 62 20 152/78 93 L 07/23/17 05:35 98.8 F 62 20 157/77 90 L 07/23/17 05:20 99.3 F 63 21 153/73 95 07/23/17 05:05 98.1 F 67 21 154/83 91 L 07/23/17 05:00 98.8 F 64 20 155/71 92 L 07/23/17 04:55 99.0 F 62 20 164/80 92 L 05/08/18 04:50 99.0 F 65 20 161/84 91 L 07/23/17 04:45 98.3 F 63 20 159/81 93 L 07/23/17 00:00 98.3 F 59 L 18 148/85 93 L 07/22/17 23:00 98.6 F 55 L 20 160/80 94 L 07/22/17 22:20 98.7 F 63 20 155/77 94 L 07/22/17 21:20 99.3 F 62 21 151/70 93 L 07/22/17 21:05 99.2 F 65 20 152/77 93 L 07/22/17 20:40 99.0 F 66 20 157/68 95 07/22/17 20:35 98.9 F 67 21 153/82 94 L 07/22/17 20:30 98.9 F 66 20 164/77 95 07/22/17 20:25 99.1 F 64 20 154/79 94 L 07/22/17 20:20 99.2 F 65 20 159/75 92 L 07/22/17 20:00 99.1 F 70 18 146/64 95 07/22/17 15:45 99.6 F 70 18 117/61 92 L Intake and Output 07/22/17 07/23/17 07/23/17 19:59 03:59 11:59 Intake Total 480 / 480 360 / 360 Balance 480 / 480 360 / 360 Intake: Intake, Oral Amount 480 / 480 360 / 360 Other: Number of Unmeasured Voids 4 1 Number of Bowel Movements 1 I & O for Last 24 hours: Intake & Output 07/20/17 07/21/17 07/22/17 07/23/17 11:59 11:59 11:59 11:59 Intake Total 1531 / 1531 1291 / 1291 1320 / 1320 480 / 480 Balance 1531 / 1531 1291 / 1291 1320 / 1320 480 / 480 Weight 190 lb 0.016 oz 190 lb 0.016 oz Microbiology Reports for the Last 24 Hours: Microbiology 07/18/17 00:00 Catheter Tip - Other Catheter Tip Culture - Final NO GROWTH AFTER 72 HOURS 07/17/17 22:16 Blood Blood Culture - Final NO GROWTH AFTER 5 DAYS 07/17/17 22:16 Blood Blood Culture - Final NO GROWTH AFTER 5 DAYS - Constitutional no acute distress - *Routine HEENT Exam ENT: Present: mucous membranes moist - *Routine Respiratory Exam Present: CTA bilaterally - *Routine Cardiovascular Exam Present: RRR Assessment and Plan (1) Fever of unknown origin Current visit: Yes Status: Acute Category: Medical Code(s): R50.9 - Fever , unspecified (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 Category: Medical Code(s): C92.00 - Acute myeloblastic leukemia, not having achieved remission (3) Coronary artery disease Current visit: No Status: Chronic Category: Medical Code(s): I25.10 - Atherosclerotic heart disease of [place] coronary artery without angina pectoris (4) Hypertension Current visit: No Status: Chronic Category: Medical Code(s): I10 - Essential (primary) hypertension (5) Presence of stent in right coronary artery Current visit: No Status: Chronic Category: Medical Code(s): Z95.5 - Presence of coronary angioplasty implant and graft (6) Sleep apnea Current visit: No Status: Chronic Category: Medical Code(s): G47.30 - Sleep apnea, unspecified (7) Anemia Current visit: Yes Status: Acute Category: Medical Code(s): D64.9 - Anemia , unspecified (8) Hypokalemia Current visit: Yes Status: Resolved Category: Medical Code(s): E87.6 - Hypokalemia - Assessment and plan all Dx Assessment and Plan for all problems:: Patient continues to improve, plan to change antibiotics today to Invanz.
[2017-07-23 13:09] LABS: Lymphocytes % 60 % (10-50); Monocytes % 4 % (2-9); Neutrophils % 32 % (42-76); Total Cells Counted 50
[2017-07-23 13:11] LABS: Anisocytosis 1+; Macrocytosis 1+; Ovalocytes 1+
--- NOTE | 2017-07-24 08:27 | Progress Note ---
<Aga Berg - Last Filed: 07/24/17 08:25> Internal Medicine - PN: Subj *Date: 07/24/17 *Time: 08:25 Interval history: States he is feeling fine today. He denies any fevers. He denies any pain. He slept well and ate breakfast this morning. Exam Vital signs and Labs for Last 24 Hours: Temp Pulse Resp BP Pulse Ox 98.8 F 66 18 147/76 90 L 07/24/17 07:27 07/24/17 07:27 07/24/17 07:27 07/24/17 07:27 07/24/17 07:27 Laboratory Results - last 24 hr 07/22/17 18:05: Crossmatch (AHG) See Detail 07/23/17 08:15: WBC 1.2 L*, RBC 2.85 L, Hgb 8.7 L, Hct 26.6 L, MCV 93.4, MCH 30.4, MCHC 32.6, RDW 19.1 H, Plt Count 241, MPV 10.3, Neut % (Auto) 13.4 L, Lymph % (Auto) 74.2 H, Antelope % (Auto) 10.0 H, Eos % (Auto) 2.2, Baso % (Auto) 0.1 , Neut # (Auto) 0.2 L*, Lymph # (Auto) 0.9, Antelope # (Auto) 0.1, Eos # (Auto) 0.0 , Baso # (Auto) 0.0, Total Counted 50, Neutrophils % (Manual) 32 L, Lymphocytes % (Manual) 60 H, Atypical Lymphs % 4.0, Monocytes % (Manual) 4, Platelet Estimate Normal, Poikilocytosis 1+, Anisocytosis 1+, Macrocytosis 1+, Ovalocytes 1+ 07/23/17 08:15: Sodium 144, Potassium 3.9, Chloride 111 H, Carbon Dioxide 27, Anion Gap 9.9, BUN 14, Creatinine 1.36 H D, Estimated Creat Clear 60, Estimated GFR 52 L, Est GFR ( Amer) 62 D, Glucose 133 H I & O for Last 24 hours: Intake & Output 07/21/17 07/22/17 07/23/17 07/24/17 11:59 11:59 11:59 11:59 Intake Total 1291 / 1291 1320 / 1320 840 / 840 650 / 650 Balance 1291 / 1291 1320 / 1320 840 / 840 650 / 650 Weight 190 lb 0.016 oz Microbiology Reports for the Last 24 Hours: Microbiology 07/18/17 00:00 Catheter Tip - Other Catheter Tip Culture - Final NO GROWTH AFTER 72 HOURS - Constitutional no acute distress - *Routine Respiratory Exam Present: rales (faint basilar rales) - *Routine Cardiovascular Exam Present: RRR - *Routine Abdominal Exam Present: soft, normoactive bowel sounds. 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 Category: Medical Code(s): C92.00 - Acute myeloblastic leukemia, not having achieved remission (3) Coronary artery disease Current visit: No Status: Chronic Category: Medical Code(s): I25.10 - Atherosclerotic heart disease of [place] coronary artery without angina pectoris (4) Hypertension Current visit: No Status: Chronic Category: Medical Code(s): I10 - Essential (primary) hypertension (5) Presence of stent in right coronary artery Current visit: No Status: Chronic Category: Medical Code(s): Z95.5 - Presence of coronary angioplasty implant and graft (6) Sleep apnea Current visit: No Status: Chronic Category: Medical Code(s): G47.30 - Sleep apnea, unspecified (7) Anemia Current visit: Yes Status: Acute Category: Medical Code(s): D64.9 - Anemia , unspecified (8) Hypokalemia Current visit: Yes Status: Resolved Category: Medical Code(s): E87.6 - Hypokalemia - Assessment and plan all Dx Assessment and Plan for all problems:: Will discuss further care with Dr. Sosa. Patient's previous chest x-ray did mention some CHF and he does have increased edema and some faint basilar rales today. <Eduardo Sosa - Last Filed: 07/24/17 08:47> Internal Medicine - PN: Subj *Date: 07/24/17 *Time: 08:46 Exam Vital signs and Labs for Last 24 Hours: Temp Pulse Resp BP Pulse Ox 98.8 F 66 18 147/76 90 L 07/24/17 07:27 07/24/17 07:27 07/24/17 07:27 07/24/17 07:27 07/24/17 07:27 Laboratory Results - last 24 hr 07/22/17 18:05: Crossmatch (AHG) See Detail 07/23/17 08:15: WBC 1.2 L*, RBC 2.85 L, Hgb 8.7 L, Hct 26.6 L, MCV 93.4, MCH 30.4, MCHC 32.6, RDW 19.1 H, Plt Count 241, MPV 10.3, Neut % (Auto) 13.4 L, Lymph % (Auto) 74.2 H, Antelope % (Auto) 10.0 H, Eos % (Auto) 2.2, Baso % (Auto) 0.1 , Neut # (Auto) 0.2 L*, Lymph # (Auto) 0.9, Antelope # (Auto) 0.1, Eos # (Auto) 0.0 , Baso # (Auto) 0.0, Total Counted 50, Neutrophils % (Manual) 32 L, Lymphocytes % (Manual) 60 H, Atypical Lymphs % 4.0, Monocytes % (Manual) 4, Platelet Estimate Normal, Poikilocytosis 1+, Anisocytosis 1+, Macrocytosis 1+, Ovalocytes 1+ 07/23/17 08:15: Sodium 144, Potassium 3.9, Chloride 111 H, Carbon Dioxide 27, Anion Gap 9.9, BUN 14, Creatinine 1.36 H D, Estimated Creat Clear 60, Estimated GFR 52 L, Est GFR ( Amer) 62 D, Glucose 133 H I & O for Last 24 hours: Intake & Output 07/21/17 07/22/17 07/23/17 07/24/17 11:59 11:59 11:59 11:59 Intake Total 1291 / 1291 1320 / 1320 840 / 840 650 / 650 Balance 1291 / 1291 1320 / 1320 840 / 840 650 / 650 Weight 190 lb 0.016 oz Microbiology Reports for the Last 24 Hours: Microbiology 07/18/17 00:00 Catheter Tip - Other Catheter Tip Culture - Final NO GROWTH AFTER 72 HOURS Assessment and Plan (1) Fever of unknown origin Current visit: Yes Status: Acute Category: Medical Code(s): R50.9 - Fever , unspecified (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 Category: Medical Code(s): C92.00 - Acute myeloblastic leukemia, not having achieved remission (3) Coronary artery disease Current visit: No Status: Chronic Category: Medical Code(s): I25.10 - Atherosclerotic heart disease of [place] coronary artery without angina pectoris (4) Hypertension Current visit: No Status: Chronic Category: Medical Code(s): I10 - Essential (primary) hypertension (5) Presence of stent in right coronary artery Current visit: No Status: Chronic Category: Medical Code(s): Z95.5 - Presence of coronary angioplasty implant and graft (6) Sleep apnea Current visit: No Status: Chronic Category: Medical Code(s): G47.30 - Sleep apnea, unspecified (7) Anemia Current visit: Yes Status: Acute Category: Medical Code(s): D64.9 - Anemia , unspecified (8) Hypokalemia Current visit: Yes Status: Resolved Category: Medical Code(s): E87.6 - Hypokalemia - Assessment and plan all Dx Assessment and Plan for all problems:: Saw patient, agree with above note. Plan discharge today, will continue daily Invanz at [facility] for the next week, plan to resume chemotherapy next week.
--- NOTE | 2017-07-24 21:23 | Discharge Summary ---
General - General Admission date:: 07/18/17 Discharge date: 07/24/17 HPI HPI: Mr. 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 He has had 30 rounds of chemo and states he has 10 more left. He is followed by Dr. Gonzalez from hematology oncology. He states he was told if he ever developed a fever to present to the emergency room. Yesterday he was out in the sun all day and developed a fever of 102, therefore he presented to the ER. He denies any other symptoms at this time. He has not had a fever throughout the night. According the patient, his PICC line has never been replaced and they were afraid in the ER this may be a source of infection, therefore it was removed. Hospital Course Hospital Course: The patient's CXR showed nothing acute. His potassium was low and was replaced. Blood cultures and cultures of the PICC tip were drawn. The patient continued to run fevers off and on throughout his stay. By 07/22/17, he was finally afebrile for 24 hours. His cultures all came back normal. His antibiotics were changed to Invanz and he will do this for a week and will then resume chemotherapy next week. Objective Vital signs: Temp Pulse Resp BP Pulse Ox 98.8 F 66 18 147/76 90 L 07/24/17 07:27 07/24/17 07:27 07/24/17 07:27 07/24/17 07:27 07/24/17 07:27 Narrative: - Constitutional no acute distress - *Routine HEENT Exam Head: Present: normocephalic, atraumatic Eye: Present: EOMI, PERRL ENT: Present: mucous membranes moist - *Routine Neck Exam Present: supple, full ROM. Absent: carotid bruit - *Routine Respiratory Exam Present: CTA bilaterally - *Routine Cardiovascular Exam Present: RRR - *Routine Abdominal Exam Present: soft, normoactive bowel sounds. Absent: tenderness - *Routine Extremities Exam Absent: edema - *Routine Skin Exam Present: intact - *Routine Neurological Exam Present: alert, oriented X3 DS: Diagnosis - Discharge Diagnosis (1) Fever of unknown origin Status: Acute (2) Acute myelogenous leukemia Status: Chronic (3) Coronary artery disease Status: Chronic (4) Hypertension Status: Chronic (5) Presence of stent in right coronary artery Status: Chronic (6) Sleep apnea Status: Chronic (7) Anemia Status: Acute (8) Hypokalemia Status: Resolved Discharge Plan - Patient Discharge Instructions ACTIVITY: Continue current activity DIET: continue same diet Patient Instructions: Anemia, Fever of Unknown Origin, Leukemia -- Adult, Hypokalemia - Follow up Plan Follow up with: Eduardo Sosa MD [Primary Care Provider] - 1 month Abelardo Gonzalez MD [Staff Physician] - 1 week Disposition: Home, Self-Halfway Medications: Home Medications Medication Instructions Recorded Confirmed Type Bisoprolol Fumarate [Zebeta 5mg 10 mg PO DAILY 03/28/17 07/18/17 History tablet] Cholecalciferol (Vitamin D3) [D3 2,000 unit PO DAILY 03/28/17 07/18/17 History Dots] Multivit-Min/FA/Lycopen/Lutein 1 each PO DAILY 03/28/17 07/18/17 History [Centrum Silver Tablet] acyclovir 400 mg tablet 400 mg PO TID 05/01/17 07/18/17 History Lisinopril [Lisinopril 40mg Tablet] 40 mg PO DAILY 05/23/17 07/18/17 History Aspirin [Aspirin 81mg EC Tab] 81 mg PO DAILY 06/10/17 07/18/17 History Fluconazole [Diflucan] 400 mg PO DAILY 06/10/17 07/18/17 History Prochlorperazine Maleate 10 mg PO NEEDED PRN 06/10/17 07/18/17 History [Compazine] levoFLOXacin [Levaquin 500mg 500 mg PO DAILY 07/17/17 07/18/17 History tab] Prescriptions/Medication Reconciliation: New Ertapenem Sodium [Invanz 1gm Vial] 1 gm IV Q24H vial Continue Cholecalciferol (Vitamin D3) [D3 Dots] 2,000 unit PO DAILY Bisoprolol Fumarate [Zebeta 5mg tablet] 10 mg PO DAILY Aspirin [Aspirin 81mg EC Tab] 81 mg PO DAILY Prochlorperazine Maleate [Compazine] 10 mg PO NEEDED PRN PRN Reason: Nausea Fluconazole [Diflucan] 400 mg PO DAILY levoFLOXacin [Levaquin 500mg tab] 500 mg PO DAILY Multivit-Min/FA/Lycopen/Lutein [Centrum Silver Tablet] 1 each PO DAILY Lisinopril [Lisinopril 40mg Tablet] 40 mg PO DAILY
--- NOTE | 2017-07-31 10:06 | Consult Report ---
*Admission Date: 07/18/17 *History of present illness: Mr. 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 He has had 30 rounds of chemo and states he has 10 more left. He is followed by Dr. Gonzalez from hematology oncology. He states he was told if he ever developed a fever to present to the emergency room. Yesterday he was out in the sun all day and developed a fever of 102, therefore he presented to the ER. He denies any other symptoms at this time. He has not had a fever throughout the night. According the patient, his PICC line has never been replaced and they were afraid in the ER this may be a source of infection, therefore it was removed. [facility] History Medical History: Reports:: Arrhythmia, Atherosclerotic Heart Disease, Atrial Fibrillation, Cancer (Acute Myelogenous Leukemia, basal cell carcinoma), Coronary Artery Disease, Hyperlipidemia, Hypertension Denies:: Diabetes Mellitus Type 1, Diabetes Mellitus Type 2, MRSA Other Medical History: Reports: Hoarseness Other Surgeries: Yes: Appendectomy, Cardiac Catheterization, Colonoscopy, Coronary Stent Amputation: No Fractures: Yes (COMPRESSION FRACTURE IN BACK) - *Social History Educational Level: Completed High School Smoking Status: Former smoker Tobacco Type: cigarettes # Packs/Day (cigarettes): 2 Alcohol Intake: never Occupational Status: other Housing: house Household Members: spouse - Psychiatric History Expresses thoughts of harming self/others: None Suicide Plan Description: No Plan *Family Hx:: Cancer, Coronary Artery Disease, Heart Attack, Hypertension, Stroke Review of Systems - *Neurologic Denies headache(s), Denies seizure-like activity, Denies dizziness, Denies weakness Meds Home Medications Medication Instructions Recorded Confirmed Type Bisoprolol Fumarate [Zebeta 5mg 10 mg PO DAILY 03/28/17 07/31/17 History tablet] Cholecalciferol (Vitamin D3) [D3 2,000 unit PO DAILY 03/28/17 07/31/17 History Dots] Multivit-Min/FA/Lycopen/Lutein 1 each PO DAILY 03/28/17 07/31/17 History [Centrum Silver Tablet] acyclovir 400 mg tablet 400 mg PO TID 05/01/17 07/31/17 History Lisinopril [Lisinopril 40mg Tablet] 40 mg PO DAILY 05/23/17 07/31/17 History Aspirin [Aspirin 81mg EC Tab] 81 mg PO DAILY 06/10/17 07/31/17 History Fluconazole [Diflucan] 400 mg PO DAILY 06/10/17 07/31/17 History Prochlorperazine Maleate 10 mg PO NEEDED PRN 06/10/17 07/31/17 History [Compazine] levoFLOXacin [Levaquin 500mg 500 mg PO DAILY 07/17/17 07/31/17 History tab] Ertapenem Sodium [Invanz 1gm Vial] 1 gm IV Q24H 07/25/17 07/30/17 History Allergies Allergy/AdvReac Type Severity Reaction Status Date / Time No Known Allergies Allergy Verified 05/03/17 16:41 Exam Vital signs and Labs for Last 24 Hours: Temp Pulse Resp BP Pulse Ox 98.8 F 66 18 147/76 90 L 07/24/17 07:27 07/24/17 07:27 07/24/17 07:27 07/24/17 07:27 07/24/17 07:27 Internal Medicine - CN: Reslt - Labs CBC & Chem 7: 07/23/17 08:15 07/23/17 08:15 Assessment and Plan (1) Fever of unknown origin Status: Acute Category: Medical Code(s): R50.9 - Fever, unspecified (2) Acute myelogenous leukemia Status: Chronic Category: Medical Code(s): C92.00 - Acute myeloblastic leukemia, not having achieved remission (3) Coronary artery disease Status: Chronic Category: Medical Code(s): I25.10 - Atherosclerotic heart disease of [place] coronary artery without angina pectoris (4) Hypertension Status: Chronic Category: Medical Code(s): I10 - Essential (primary) hypertension (5) Presence of stent in right coronary artery Status: Chronic Category: Medical Code(s): Z95.5 - Presence of coronary angioplasty implant and graft (6) Sleep apnea Status: Chronic Category: Medical Code(s): G47.30 - Sleep apnea, unspecified (7) Anemia Status: Acute Category: Medical Code(s): D64.9 - Anemia, unspecified (8) Hypokalemia Status: Resolved Category: Medical Code(s): E87.6 - Hypokalemia
--- NOTE | 2017-08-19 13:50 | Consult Report ---
*Admission Date: 07/18/17 *History of present illness: Mr. 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 He has had 30 rounds of chemo and states he has 10 more left. He is followed by Dr. Gonzalez from hematology oncology. He states he was told if he ever developed a fever to present to the emergency room. Yesterday he was out in the sun all day and developed a fever of 102, therefore he presented to the ER. He denies any other symptoms at this time. He has not had a fever throughout the night. According the patient, his PICC line has never been replaced and they were afraid in the ER this may be a source of infection, therefore it was removed. [facility] History Medical History: Reports:: Arrhythmia, Atherosclerotic Heart Disease, Atrial Fibrillation, Cancer (Acute Myelogenous Leukemia, basal cell carcinoma), Coronary Artery Disease, Hyperlipidemia, Hypertension Denies:: Diabetes Mellitus Type 1, Diabetes Mellitus Type 2, MRSA Other Medical History: Reports: Hoarseness Other Surgeries: Yes: Appendectomy, Cardiac Catheterization, Colonoscopy, Coronary Stent Amputation: No Fractures: Yes (COMPRESSION FRACTURE IN BACK) - *Social History Educational Level: Completed High School Smoking Status: Former smoker Tobacco Type: cigarettes # Packs/Day (cigarettes): 2 Alcohol Intake: never Occupational Status: other Housing: house Household Members: spouse - Psychiatric History Expresses thoughts of harming self/others: None Suicide Plan Description: No Plan *Family Hx:: Cancer, Coronary Artery Disease, Heart Attack, Hypertension, Stroke Review of Systems - *Neurologic Denies headache(s), Denies seizure-like activity, Denies dizziness, Denies weakness Meds Home Medications Medication Instructions Recorded Confirmed Type Cholecalciferol (Vitamin D3) [D3 2,000 unit PO DAILY 03/28/17 08/07/17 History Dots] Lisinopril [Lisinopril 40mg Tablet] 40 mg PO DAILY 05/23/17 08/07/17 History Aspirin [Aspirin 81mg EC Tab] 81 mg PO DAILY 06/10/17 08/07/17 History Fluconazole [Diflucan] 400 mg PO DAILY 06/10/17 08/07/17 History acyclovir 400 mg tablet 400 mg PO TID 08/13/17 History bisoprolol fumarate 10 mg tablet 10 mg PO DAILY tab 08/13/17 History ohqtxowy-iib-qbuxk acid 300 1 tab PO DAILY tab 08/13/17 History mcg-lycopene 600 mcg-lutein 300 mcg tablet levofloxacin 500 mg tablet 500 mg PO Q24H 08/14/17 History Allergies Allergy/AdvReac Type Severity Reaction Status Date / Time No Known Allergies Allergy Verified 08/14/17 09:04 Exam Vital signs and Labs for Last 24 Hours: Temp Pulse Resp BP Pulse Ox 98.8 F 66 18 147/76 90 L 07/24/17 07:27 07/24/17 07:27 07/24/17 07:27 07/24/17 07:27 07/24/17 07:27 Internal Medicine - CN: Reslt - Labs CBC & Chem 7: 07/23/17 08:15 07/23/17 08:15 Assessment and Plan (1) Fever of unknown origin Status: Acute Category: Medical Code(s): R50.9 - Fever, unspecified (2) Acute myelogenous leukemia Status: Chronic Category: Medical Code(s): C92.00 - Acute myeloblastic leukemia, not having achieved remission (3) Coronary artery disease Status: Chronic Qualifiers: Coronary Disease-Associated Artery/Lesion type: [place] artery [place] vs. transplanted heart: [place] heart Associated angina: without angina Qualified Code(s): I25.10 - Atherosclerotic heart disease of [place] coronary artery without angina pectoris Category: Medical Code(s): I25.10 - Atherosclerotic heart disease of [place] coronary artery without angina pectoris (4) Hypertension Status: Chronic Qualifiers: Hypertension type: essential hypertension Qualified Code(s): I10 - Essential (primary) hypertension Category: Medical Code(s): I10 - Essential (primary) hypertension (5) Presence of stent in right coronary artery Status: Chronic Category: Medical Code(s): Z95.5 - Presence of coronary angioplasty implant and graft (6) Sleep apnea Status: Chronic Qualifiers: Sleep apnea type: obstructive Qualified Code(s): G47.33 - Obstructive sleep apnea (adult) (pediatric) Category: Medical Code(s): G47.30 - Sleep apnea, unspecified (7) Anemia Status: Acute Category: Medical Code(s): D64.9 - Anemia, unspecified (8) Hypokalemia Status: Resolved Category: Medical Code(s): E87.6 - Hypokalemia
== END 2017-07-24 11:14 | disposition home or self-care (01) ==
LOC: 2ND 21:55 → ER 21:55 → 2ND 07-18 01:46
PROVIDERS: ADMIT Family Medicine; ATTEND Family Medicine

== ENCOUNTER 2017-07-25 08:38 | Outpatient (CLI) | payer MEDICARE, OTHER, SELFPAY ==
[2017-07-25 10:22] VITALS: BP 162/99; PULSE 86; RESP 18; TEMP 36.9; O2SAT 93; BMI 27.2
[2017-07-25 10:31] VITALS: BP 160/91; PULSE 84; RESP 18; TEMP 36.7; O2SAT 94
== END 2017-07-25 10:00 | disposition home or self-care (01) ==
LOC: INF 08:38
PROVIDERS: Family Provider Family Medicine; PCP Family Medicine; Visit Provider Family Medicine
DX: C92.00 Acute myeloblastic leukemia, not having achieved remission (principal); R50.9 Fever, unspecified
CPT/HCPCS: 96365; J1335

== ENCOUNTER 2017-07-26 08:30 | Outpatient (CLI) | payer MEDICARE, OTHER, SELFPAY ==
[2017-07-26 08:38] VITALS: BMI 27.2
[2017-07-26 08:50] VITALS: BP 139/74; PULSE 82; RESP 18; TEMP 36.6
[2017-07-26 09:03] LABS: Basophils % 0.1 % (0.1-2.0); Hematocrit 28.7 % (42.0-52.0); Hemoglobin 9.6 g/dL (14.1-18.0); Lymphocytes # 1.4 K/mm3 (0.7-4.5); Lymphocytes % 64.8 K/mm3 (10-50); Mean Corpuscular HGB Conc 33.3 g/dL (31.8-35.4); Mean Corpuscular Hemoglobin 31.1 pg (27.0-31.2); Mean Corpuscular Volume 93.5 fl (80-94); Mean Platelet Volume 9.9 fl (7.4-10.4); Monocytes # 0.2 K/mm3 (0.1-1.0); Monocytes % 10.2 % (1.7-9.3); Neutrophils # 0.5 K/mm3 (1.8-7.8); Neutrophils % 23.8 % (37.0-80.0); Platelet Count 264 K/mm3 (142-424); Red Blood Count 3.07 M/mm3 (4.60-6.20); Red Cell Distribution Width 19.8 % (11.5-17.5); White Blood Count 2.1 K/mm3 (4.8-10.8)
[2017-07-26 09:07] LABS: MANUAL DIFFERENTIAL MANUAL DIFFERENTIAL (MANUAL DIFF)
[2017-07-26 09:20] VITALS: BP 129/73; PULSE 73; RESP 18
[2017-07-26 09:30] VITALS: BP 142/76; PULSE 83; RESP 18
[2017-07-26 09:44] LABS: Eosinophils % 2 % (0-3); Lymphocytes % 51 % (10-50); Monocytes % 5 % (2-9); Neutrophils % 26 % (42-76); Nucleated Red Blood Cells 1; Total Cells Counted 100
[2017-07-26 09:45] LABS: Anisocytosis 2+; Macrocytosis 2+
[2017-07-26 09:46] LABS: Platelet Estimate Normal
== END 2017-07-26 09:50 | disposition home or self-care (01) ==
LOC: INF 08:35
PROVIDERS: Internal Medicine; Family Provider Family Medicine; PCP Family Medicine; Visit Provider Family Medicine
DX: C92.00 Acute myeloblastic leukemia, not having achieved remission (principal)
CPT/HCPCS: 85007; 85025; 96365; J1335

== ENCOUNTER 2017-07-27 08:32 | Outpatient (CLI) | payer MEDICARE, OTHER, SELFPAY ==
[2017-07-27 08:45] VITALS: BP 158/74; PULSE 60; RESP 18; TEMP 36.7; O2SAT 99
[2017-07-27 08:55] VITALS: BP 149/77; PULSE 62; RESP 18; TEMP 36.7; O2SAT 99
== END 2017-07-27 09:15 | disposition home or self-care (01) ==
LOC: INF 08:35
PROVIDERS: Family Provider Family Medicine; PCP Family Medicine; Visit Provider Family Medicine
DX: R50.9 Fever, unspecified (principal); C92.00 Acute myeloblastic leukemia, not having achieved remission
CPT/HCPCS: 96365; G0463; J1335

== ENCOUNTER 2017-07-28 08:31 | Outpatient (CLI) | payer MEDICARE, OTHER, SELFPAY ==
[2017-07-28 08:36] VITALS: BMI 27.2
[2017-07-28 08:44] VITALS: BP 154/70; PULSE 57; RESP 16; TEMP 36.6; O2SAT 93
[2017-07-28 09:22] VITALS: BP 158/70; PULSE 55; RESP 18; TEMP 36.8; O2SAT 94
== END 2017-07-28 09:28 | disposition home or self-care (01) ==
LOC: INF 08:32
PROVIDERS: Family Provider Family Medicine; PCP Family Medicine; Visit Provider Family Medicine
DX: R50.9 Fever, unspecified (principal); C92.00 Acute myeloblastic leukemia, not having achieved remission
CPT/HCPCS: 96365; J1335

== ENCOUNTER 2017-07-29 08:36 | Outpatient (CLI) | payer MEDICARE, OTHER, SELFPAY ==
[2017-07-29 08:38] VITALS: BMI 26.5
[2017-07-29 08:52] LABS: Basophils % 0.5 % (0.1-2.0); Eosinophils % 0.8 % (0.1-12.0); Hematocrit 29.9 % (42.0-52.0); Hemoglobin 9.6 g/dL (14.1-18.0); Lymphocytes # 1.9 K/mm3 (0.7-4.5); Lymphocytes % 63.1 K/mm3 (10-50); Mean Corpuscular HGB Conc 32.1 g/dL (31.8-35.4); Mean Corpuscular Hemoglobin 30.7 pg (27.0-31.2); Mean Corpuscular Volume 95.7 fl (80-94); Mean Platelet Volume 10.1 fl (7.4-10.4); Monocytes # 0.4 K/mm3 (0.1-1.0); Monocytes % 13.7 % (1.7-9.3); Neutrophils # 0.7 K/mm3 (1.8-7.8); Neutrophils % 21.8 % (37.0-80.0); Platelet Count 285 K/mm3 (142-424); Red Blood Count 3.13 M/mm3 (4.60-6.20); Red Cell Distribution Width 21.3 % (11.5-17.5); White Blood Count 3.1 K/mm3 (4.8-10.8)
[2017-07-29 08:55] LABS: MANUAL DIFFERENTIAL MANUAL DIFFERENTIAL (MANUAL DIFF)
[2017-07-29 08:57] VITALS: BP 143/72; PULSE 89; RESP 18; TEMP 36.4; O2SAT 96
[2017-07-29 09:27] VITALS: BP 139/79; PULSE 91; RESP 18; O2SAT 97
[2017-07-29 09:43] LABS: Lymphocytes % 58 % (10-50); Monocytes % 14 % (2-9); Myelocytes % 4 (0-1); Neutrophils % 22 % (42-76); Platelet Estimate Normal; Total Cells Counted 50
[2017-07-29 09:44] LABS: Anisocytosis 2+
[2017-07-29 09:57] VITALS: BP 141/76; PULSE 87; RESP 18; O2SAT 97
[2017-07-29 10:27] VITALS: BP 138/71; PULSE 84; RESP 18; O2SAT 97
[2017-07-29 10:57] VITALS: BP 135/72; PULSE 85; RESP 18; O2SAT 97
[2017-07-29 11:05] VITALS: BP 140/79; PULSE 82; RESP 18; O2SAT 97
== END 2017-07-29 11:10 | disposition home or self-care (01) ==
LOC: INF 08:36
PROVIDERS: Internal Medicine; Family Provider Family Medicine; PCP Family Medicine; Visit Provider Family Medicine
DX: Z51.11 Encounter for antineoplastic chemotherapy (principal); C92.00 Acute myeloblastic leukemia, not having achieved remission; R50.9 Fever, unspecified
CPT/HCPCS: 85007; 85025; 96367; 96413; J0894; J1335

== ENCOUNTER 2017-07-30 08:27 | Outpatient (CLI) | payer MEDICARE, OTHER, SELFPAY ==
[2017-07-30 08:30] VITALS: BMI 26.5
[2017-07-30 08:47] LABS: Basophils % 0.5 % (0.1-2.0); Eosinophils % 0.9 % (0.1-12.0); Hematocrit 29.5 % (42.0-52.0); Hemoglobin 9.7 g/dL (14.1-18.0); Lymphocytes # 1.9 K/mm3 (0.7-4.5); Mean Corpuscular HGB Conc 32.8 g/dL (31.8-35.4); Mean Corpuscular Hemoglobin 31.4 pg (27.0-31.2); Mean Corpuscular Volume 95.8 fl (80-94); Mean Platelet Volume 9.7 fl (7.4-10.4); Monocytes # 0.4 K/mm3 (0.1-1.0); Monocytes % 14.1 % (1.7-9.3); Neutrophils # 0.7 K/mm3 (1.8-7.8); Neutrophils % 22.4 % (37.0-80.0); Platelet Count 319 K/mm3 (142-424); Red Blood Count 3.08 M/mm3 (4.60-6.20); Red Cell Distribution Width 22.1 % (11.5-17.5); White Blood Count 3.1 K/mm3 (4.8-10.8)
[2017-07-30 08:49] LABS: MANUAL DIFFERENTIAL MANUAL DIFFERENTIAL (MANUAL DIFF)
[2017-07-30 08:58] VITALS: BP 136/68; PULSE 58; RESP 18; TEMP 36.7; O2SAT 98
[2017-07-30 09:28] VITALS: BP 140/66; PULSE 60; RESP 18; O2SAT 97
[2017-07-30 09:31] LABS: Lymphocytes % 61 % (10-50); Monocytes % 10 % (2-9); Neutrophils % 28 % (42-76); Total Cells Counted 100
[2017-07-30 09:32] LABS: Anisocytosis 2+; Hypochromasia 2+; Macrocytosis 2+; Platelet Estimate Normal
[2017-07-30 09:58] VITALS: BP 138/69; PULSE 59; RESP 18; O2SAT 98
[2017-07-30 10:28] VITALS: BP 142/64; PULSE 60; RESP 18; O2SAT 97
[2017-07-30 10:58] VITALS: BP 137/65; PULSE 57; RESP 18; O2SAT 98
[2017-07-30 11:10] VITALS: BP 140/67; PULSE 59; RESP 18; O2SAT 97
== END 2017-07-30 11:15 | disposition home or self-care (01) ==
LOC: INF 08:27
PROVIDERS: Internal Medicine; Family Provider Family Medicine; PCP Family Medicine; Visit Provider Family Medicine
DX: C92.00 Acute myeloblastic leukemia, not having achieved remission (principal); R50.9 Fever, unspecified; Z51.11 Encounter for antineoplastic chemotherapy
CPT/HCPCS: 85007; 85025; 96365; 96367; 96413; 96415; J0894; J1335

== ENCOUNTER 2017-07-31 08:30 | Outpatient (CLI) | payer MEDICARE, OTHER, SELFPAY ==
[2017-07-31] VITALS (9 sets, daily range): BP systolic 135–167; BP diastolic 65–83; PULSE 52–63; RESP 16–18; TEMP 37; BMI 27.2
[2017-07-31 09:06] LABS: Basophils % 0.3 % (0.1-2.0); Eosinophils % 1.1 % (0.1-12.0); Hematocrit 29.4 % (42.0-52.0); Hemoglobin 9.6 g/dL (14.1-18.0); Lymphocytes # 1.8 K/mm3 (0.7-4.5); Lymphocytes % 61.4 K/mm3 (10-50); Mean Corpuscular HGB Conc 32.6 g/dL (31.8-35.4); Mean Corpuscular Hemoglobin 31.5 pg (27.0-31.2); Mean Corpuscular Volume 96.6 fl (80-94); Mean Platelet Volume 9.6 fl (7.4-10.4); Monocytes # 0.4 K/mm3 (0.1-1.0); Monocytes % 12.2 % (1.7-9.3); Neutrophils # 0.7 K/mm3 (1.8-7.8); Platelet Count 288 K/mm3 (142-424); Red Blood Count 3.04 M/mm3 (4.60-6.20); Red Cell Distribution Width 22.2 % (11.5-17.5); White Blood Count 2.9 K/mm3 (4.8-10.8)
[2017-07-31 09:08] LABS: MANUAL DIFFERENTIAL MANUAL DIFFERENTIAL (MANUAL DIFF)
[2017-07-31 09:52] LABS: Anisocytosis 2+; Eosinophils % 2 % (0-3); Lymphocytes % 56 % (10-50); Monocytes % 14 % (2-9); Neutrophils % 24 % (42-76); Platelet Estimate Normal; Total Cells Counted 50
== END 2017-07-31 11:45 | disposition home or self-care (01) ==
LOC: INF 08:52
PROVIDERS: Internal Medicine; Family Provider Family Medicine; PCP Family Medicine; Visit Provider Family Medicine
DX: C92.00 Acute myeloblastic leukemia, not having achieved remission (principal); R50.9 Fever, unspecified; Z51.11 Encounter for antineoplastic chemotherapy
CPT/HCPCS: 85007; 85025; 96365; 96367; 96413; 96415; J0894; J1335

== ENCOUNTER 2017-08-01 08:25 | Outpatient (CLI) | payer MEDICARE, OTHER, SELFPAY ==
[2017-08-01 08:35] VITALS: BMI 27.2
[2017-08-01 08:49] LABS: Basophils % 0.5 % (0.1-2.0); Eosinophils % 0.7 % (0.1-12.0); Hematocrit 30.3 % (42.0-52.0); Hemoglobin 9.9 g/dL (14.1-18.0); Lymphocytes # 1.7 K/mm3 (0.7-4.5); Lymphocytes % 56.1 K/mm3 (10-50); Mean Corpuscular HGB Conc 32.8 g/dL (31.8-35.4); Mean Corpuscular Hemoglobin 31.9 pg (27.0-31.2); Mean Corpuscular Volume 97.3 fl (80-94); Mean Platelet Volume 9.9 fl (7.4-10.4); Monocytes # 0.4 K/mm3 (0.1-1.0); Monocytes % 11.7 % (1.7-9.3); Neutrophils # 0.9 K/mm3 (1.8-7.8); Neutrophils % 31.1 % (37.0-80.0); Platelet Count 299 K/mm3 (142-424); Red Blood Count 3.12 M/mm3 (4.60-6.20); Red Cell Distribution Width 22.3 % (11.5-17.5)
[2017-08-01 08:51] LABS: MANUAL DIFFERENTIAL MANUAL DIFFERENTIAL (MANUAL DIFF)
[2017-08-01 09:29] LABS: Lymphocytes % 50 % (10-50); Monocytes % 10 % (2-9); Neutrophils % 36 % (42-76); Total Cells Counted 50
[2017-08-01 09:30] LABS: Anisocytosis 2+; Platelet Estimate Normal
[2017-08-01 09:55] VITALS: BP 132/66; PULSE 51; RESP 18; TEMP 36.7; O2SAT 97
[2017-08-01 10:10] VITALS: BP 136/65; PULSE 53; RESP 16
[2017-08-01 10:25] VITALS: BP 142/62; PULSE 52; RESP 16
[2017-08-01 10:40] VITALS: BP 131/64; PULSE 54; RESP 16
[2017-08-01 10:55] VITALS: BP 131/58; PULSE 51; RESP 16
== END 2017-08-01 11:30 | disposition home or self-care (01) ==
LOC: INF 08:32
PROVIDERS: Family Provider Family Medicine; PCP Family Medicine; Visit Provider Internal Medicine
DX: Z51.11 Encounter for antineoplastic chemotherapy (principal); C92.00 Acute myeloblastic leukemia, not having achieved remission
CPT/HCPCS: 85007; 85025; 96365; 96413; J0894

== ENCOUNTER 2017-08-02 08:30 | Outpatient (CLI) | payer MEDICARE, OTHER, SELFPAY ==
[2017-08-02 08:30] VITALS: BMI 30.7
[2017-08-02 08:55] LABS: Basophils % 0.5 % (0.1-2.0); Eosinophils % 0.7 % (0.1-12.0); Hematocrit 31.1 % (42.0-52.0); Hemoglobin 10.1 g/dL (14.1-18.0); Lymphocytes # 1.8 K/mm3 (0.7-4.5); Mean Corpuscular HGB Conc 32.6 g/dL (31.8-35.4); Mean Corpuscular Hemoglobin 31.5 pg (27.0-31.2); Mean Corpuscular Volume 96.6 fl (80-94); Mean Platelet Volume 9.6 fl (7.4-10.4); Monocytes # 0.3 K/mm3 (0.1-1.0); Monocytes % 8.4 % (1.7-9.3); Neutrophils # 1.2 K/mm3 (1.8-7.8); Neutrophils % 35.5 % (37.0-80.0); Platelet Count 322 K/mm3 (142-424); Red Blood Count 3.22 M/mm3 (4.60-6.20); Red Cell Distribution Width 22.7 % (11.5-17.5); White Blood Count 3.3 K/mm3 (4.8-10.8)
[2017-08-02 08:57] LABS: MANUAL DIFFERENTIAL MANUAL DIFFERENTIAL (MANUAL DIFF)
[2017-08-02 09:23] LABS: Lymphocytes % 56 % (10-50); Monocytes % 4 % (2-9); Neutrophils % 35 % (42-76); Total Cells Counted 100
[2017-08-02 09:24] LABS: Anisocytosis 2+; Hypochromasia 2+; Macrocytosis 2+
[2017-08-02 09:25] LABS: Ovalocytes 1+; Platelet Estimate Normal; Poikilocytosis 1+
[2017-08-02 09:45] VITALS: BP 140/66; PULSE 68; RESP 20; TEMP 36.7; O2SAT 96
[2017-08-02 10:15] VITALS: BP 145/67; PULSE 68; RESP 20; TEMP 36.9; O2SAT 96
[2017-08-02 10:45] VITALS: BP 122/70; PULSE 66; RESP 20; TEMP 36.7; O2SAT 96
[2017-08-02 11:00] VITALS: BP 118/70; PULSE 68; RESP 20; TEMP 36.9; O2SAT 95
== END 2017-08-02 11:10 | disposition home or self-care (01) ==
LOC: INF 08:37
PROVIDERS: Family Provider Family Medicine; PCP Family Medicine; Visit Provider Internal Medicine
DX: Z51.11 Encounter for antineoplastic chemotherapy (principal); C92.00 Acute myeloblastic leukemia, not having achieved remission
CPT/HCPCS: 85007; 85025; 96413; J0894

== ENCOUNTER 2017-08-03 08:30 | Outpatient (CLI) | payer MEDICARE, OTHER, SELFPAY ==
[2017-08-03 08:37] VITALS: BMI 30.7
[2017-08-03 08:53] LABS: Basophils % 0.2 % (0.1-2.0); Eosinophils % 0.8 % (0.1-12.0); Hematocrit 31.3 % (42.0-52.0); Hemoglobin 10.1 g/dL (14.1-18.0); Lymphocytes # 1.6 K/mm3 (0.7-4.5); Lymphocytes % 50.5 K/mm3 (10-50); Mean Corpuscular HGB Conc 32.3 g/dL (31.8-35.4); Mean Corpuscular Hemoglobin 31.4 pg (27.0-31.2); Mean Corpuscular Volume 97.3 fl (80-94); Mean Platelet Volume 9.5 fl (7.4-10.4); Monocytes # 0.2 K/mm3 (0.1-1.0); Monocytes % 7.5 % (1.7-9.3); Neutrophils # 1.3 K/mm3 (1.8-7.8); Platelet Count 314 K/mm3 (142-424); Red Blood Count 3.22 M/mm3 (4.60-6.20); Red Cell Distribution Width 22.8 % (11.5-17.5); White Blood Count 3.1 K/mm3 (4.8-10.8)
[2017-08-03 08:54] LABS: MANUAL DIFFERENTIAL MANUAL DIFFERENTIAL (MANUAL DIFF)
[2017-08-03 09:16] VITALS: BP 147/67; PULSE 56; RESP 20; TEMP 37.1; O2SAT 96
[2017-08-03 09:30] LABS: Lymphocytes % 50 % (10-50); Monocytes % 10 % (2-9); Neutrophils % 40 % (42-76); Platelet Estimate Normal; Total Cells Counted 50
[2017-08-03 09:31] LABS: Tear Drop Cells 1+
[2017-08-03 09:32] LABS: Schistocytes 1+
[2017-08-03 09:40] VITALS: BP 122/70; PULSE 68; RESP 20; TEMP 36.7; O2SAT 96
[2017-08-03 10:00] VITALS: BP 138/65; PULSE 66; RESP 20; TEMP 36.9; O2SAT 96
[2017-08-03 10:30] VITALS: BP 134/70; PULSE 68; RESP 20; TEMP 36.7; O2SAT 96
[2017-08-03 10:51] VITALS: BP 135/68; PULSE 66; RESP 20; TEMP 36.9; O2SAT 95
== END 2017-08-03 10:56 | disposition home or self-care (01) ==
LOC: INF 08:52
PROVIDERS: Family Provider Family Medicine; PCP Family Medicine; Visit Provider Internal Medicine
DX: Z51.11 Encounter for antineoplastic chemotherapy (principal); C92.00 Acute myeloblastic leukemia, not having achieved remission
CPT/HCPCS: 85007; 85025; 96413; J0894

== ENCOUNTER → 2017-08-04 08:30 | Outpatient (CLI) | payer MEDICARE, OTHER, SELFPAY ==
[2017-08-04 08:37] VITALS: BMI 31.6
[2017-08-04 08:52] LABS: Basophils % 0.3 % (0.1-2.0); Eosinophils % 0.3 % (0.1-12.0); Hematocrit 31.8 % (42.0-52.0); Hemoglobin 10.3 g/dL (14.1-18.0); Lymphocytes # 1.5 K/mm3 (0.7-4.5); Mean Corpuscular HGB Conc 32.2 g/dL (31.8-35.4); Mean Corpuscular Hemoglobin 31.5 pg (27.0-31.2); Mean Corpuscular Volume 97.9 fl (80-94); Monocytes # 0.2 K/mm3 (0.1-1.0); Neutrophils # 1.3 K/mm3 (1.8-7.8); Neutrophils % 43.3 % (37.0-80.0); Platelet Count 307 K/mm3 (142-424); Red Blood Count 3.25 M/mm3 (4.60-6.20); Red Cell Distribution Width 23.4 % (11.5-17.5)
[2017-08-04 08:57] LABS: MANUAL DIFFERENTIAL MANUAL DIFFERENTIAL (MANUAL DIFF)
[2017-08-04 09:11] LABS: Lymphocytes % 48 % (10-50); Monocytes % 3 % (2-9); Neutrophils % 41 % (42-76); Platelet Estimate Normal; Total Cells Counted 100
[2017-08-04 09:12] LABS: Tear Drop Cells 1+
[2017-08-04 09:40] VITALS: BP 138/68; PULSE 68; RESP 20; TEMP 36.7; O2SAT 96
[2017-08-04 10:00] VITALS: BP 142/70; PULSE 68; RESP 20; TEMP 37.1; O2SAT 96
[2017-08-04 10:29] VITALS: BP 136/73; PULSE 58; RESP 20; TEMP 36.9; O2SAT 96
[2017-08-04 10:50] VITALS: BP 130/71; PULSE 68; RESP 18; TEMP 36.3; O2SAT 96
== END ==
PROVIDERS: Family Provider Family Medicine; PCP Family Medicine; Visit Provider Internal Medicine
DX: Z51.11 Encounter for antineoplastic chemotherapy (principal); C92.00 Acute myeloblastic leukemia, not having achieved remission
CPT/HCPCS: 85007; 85025; 96413; J0894

== ENCOUNTER 2017-08-05 08:31 | Outpatient (CLI) | payer MEDICARE, OTHER, SELFPAY ==
[2017-08-05 08:31] VITALS: BMI 27.2
[2017-08-05 08:51] LABS: Basophils % 0.3 % (0.1-2.0); Eosinophils % 0.5 % (0.1-12.0); Hematocrit 31.2 % (42.0-52.0); Hemoglobin 10.3 g/dL (14.1-18.0); Lymphocytes # 1.7 K/mm3 (0.7-4.5); Lymphocytes % 49.3 K/mm3 (10-50); Mean Corpuscular HGB Conc 33.1 g/dL (31.8-35.4); Mean Corpuscular Hemoglobin 32.5 pg (27.0-31.2); Mean Corpuscular Volume 98.1 fl (80-94); Mean Platelet Volume 9.8 fl (7.4-10.4); Monocytes # 0.2 K/mm3 (0.1-1.0); Neutrophils # 1.5 K/mm3 (1.8-7.8); Neutrophils % 43.9 % (37.0-80.0); Platelet Count 297 K/mm3 (142-424); Red Blood Count 3.18 M/mm3 (4.60-6.20); Red Cell Distribution Width 23.5 % (11.5-17.5); White Blood Count 3.4 K/mm3 (4.8-10.8)
[2017-08-05 09:30] VITALS: BP 129/60; PULSE 66; RESP 20; TEMP 36.9; O2SAT 96
[2017-08-05 10:00] VITALS: BP 135/70; PULSE 68; RESP 20; TEMP 37.1; O2SAT 98
[2017-08-05 10:30] VITALS: BP 136/79; PULSE 68; RESP 20; TEMP 36.9; O2SAT 96
[2017-08-05 10:50] VITALS: BP 130/63; PULSE 68; RESP 20; TEMP 36.9; O2SAT 95
== END 2017-08-05 10:50 | disposition home or self-care (01) ==
LOC: INF 08:31
PROVIDERS: Family Provider Family Medicine; PCP Family Medicine; Visit Provider Internal Medicine
DX: Z51.11 Encounter for antineoplastic chemotherapy (principal); C92.00 Acute myeloblastic leukemia, not having achieved remission
CPT/HCPCS: 85025; 96413; J0894

== ENCOUNTER 2017-08-06 08:30 | Outpatient (CLI) | payer MEDICARE, OTHER, SELFPAY ==
[2017-08-06 08:30] VITALS: BMI 27.2
[2017-08-06 08:50] LABS: Basophils % 0.2 % (0.1-2.0); Eosinophils % 0.4 % (0.1-12.0); Hematocrit 31.2 % (42.0-52.0); Hemoglobin 10.1 g/dL (14.1-18.0); Lymphocytes # 1.5 K/mm3 (0.7-4.5); Lymphocytes % 48.6 K/mm3 (10-50); Mean Corpuscular HGB Conc 32.2 g/dL (31.8-35.4); Mean Corpuscular Volume 96.2 fl (80-94); Mean Platelet Volume 10.3 fl (7.4-10.4); Monocytes # 0.1 K/mm3 (0.1-1.0); Monocytes % 4.6 % (1.7-9.3); Neutrophils # 1.4 K/mm3 (1.8-7.8); Neutrophils % 46.2 % (37.0-80.0); Platelet Count 274 K/mm3 (142-424); Red Blood Count 3.24 M/mm3 (4.60-6.20); Red Cell Distribution Width 23.2 % (11.5-17.5)
[2017-08-06 10:00] VITALS: BP 145/76; PULSE 68; RESP 20; TEMP 36.9; O2SAT 96
[2017-08-06 10:30] VITALS: BP 122/70; PULSE 68; RESP 20; TEMP 36.9; O2SAT 96
[2017-08-06 11:00] VITALS: BP 118/72; PULSE 70; RESP 20; TEMP 36.9; O2SAT 96
[2017-08-06 11:25] VITALS: BP 122/70; PULSE 66; RESP 20; TEMP 36.9; O2SAT 96
== END 2017-08-06 11:25 | disposition home or self-care (01) ==
LOC: INF 08:30
PROVIDERS: Family Provider Family Medicine; PCP Family Medicine; Visit Provider Internal Medicine
DX: Z51.11 Encounter for antineoplastic chemotherapy (principal); C92.00 Acute myeloblastic leukemia, not having achieved remission
CPT/HCPCS: 85025; 96413; J0894

== ENCOUNTER 2017-08-07 08:30 | Outpatient (CLI) | payer MEDICARE, OTHER, SELFPAY ==
[2017-08-07 08:30] VITALS: BMI 27.2
[2017-08-07 09:22] LABS: Basophils % 0.4 % (0.1-2.0); Eosinophils % 0.5 % (0.1-12.0); Hematocrit 30.2 % (42.0-52.0); Hemoglobin 10.2 g/dL (14.1-18.0); Lymphocytes # 1.4 K/mm3 (0.7-4.5); Lymphocytes % 40.7 K/mm3 (10-50); Mean Corpuscular HGB Conc 33.7 g/dL (31.8-35.4); Mean Corpuscular Hemoglobin 32.5 pg (27.0-31.2); Mean Corpuscular Volume 96.4 fl (80-94); Mean Platelet Volume 9.9 fl (7.4-10.4); Monocytes # 0.2 K/mm3 (0.1-1.0); Monocytes % 5.4 % (1.7-9.3); Neutrophils # 1.8 K/mm3 (1.8-7.8); Platelet Count 250 K/mm3 (142-424); Red Blood Count 3.13 M/mm3 (4.60-6.20); Red Cell Distribution Width 23.1 % (11.5-17.5); White Blood Count 3.4 K/mm3 (4.8-10.8)
[2017-08-07 10:15] VITALS: BP 146/69; PULSE 59; RESP 18; TEMP 36.7; O2SAT 97
[2017-08-07 10:45] VITALS: BP 139/67; PULSE 60; RESP 18; O2SAT 98
[2017-08-07 11:15] VITALS: BP 142/65; PULSE 58; RESP 18; O2SAT 97
[2017-08-07 11:25] VITALS: BP 144/64; PULSE 62; RESP 18; O2SAT 97
== END 2017-08-07 11:30 | disposition home or self-care (01) ==
LOC: INF 08:30
PROVIDERS: Family Provider Family Medicine; PCP Family Medicine; Visit Provider Internal Medicine
DX: Z51.11 Encounter for antineoplastic chemotherapy (principal); C92.00 Acute myeloblastic leukemia, not having achieved remission
CPT/HCPCS: 85025; 96413; J0894

== ENCOUNTER 2017-08-09 08:30 | Outpatient (CLI) | payer MEDICARE, OTHER, SELFPAY ==
[2017-08-09 09:00] VITALS: BMI 27.2
[2017-08-09 09:13] LABS: Basophils % 0.6 % (0.1-2.0); Eosinophils # 0.1 K/mm3 (0.0-0.4); Eosinophils % 1.5 % (0.1-12.0); Hematocrit 32.6 % (42.0-52.0); Hemoglobin 10.3 g/dL (14.1-18.0); Lymphocytes # 1.3 K/mm3 (0.7-4.5); Lymphocytes % 42.4 K/mm3 (10-50); Mean Corpuscular HGB Conc 31.7 g/dL (31.8-35.4); Mean Corpuscular Hemoglobin 31.7 pg (27.0-31.2); Mean Corpuscular Volume 99.9 fl (80-94); Mean Platelet Volume 10.4 fl (7.4-10.4); Monocytes # 0.1 K/mm3 (0.1-1.0); Monocytes % 2.4 % (1.7-9.3); Neutrophils # 1.6 K/mm3 (1.8-7.8); Platelet Count 221 K/mm3 (142-424); Red Blood Count 3.26 M/mm3 (4.60-6.20); Red Cell Distribution Width 23.9 % (11.5-17.5)
--- NOTE | 2017-08-09 12:36 | PC.NURSE ---
0935 - HGB 10.3, PLT 221 SO NO BLOOD OR PLT TRANSFUSION INDICATED AT THIS TIME.
== END 2017-08-09 09:45 | disposition home or self-care (01) ==
LOC: INF 08:40
PROVIDERS: Family Provider Family Medicine; PCP Family Medicine; Visit Provider Internal Medicine
DX: C92.00 Acute myeloblastic leukemia, not having achieved remission (principal)
CPT/HCPCS: 85025

== ENCOUNTER 2017-08-13 08:29 | Outpatient (CLI) | payer MEDICARE, OTHER, SELFPAY ==
[2017-08-13 08:29] VITALS: BMI 27.2
[2017-08-13 08:55] LABS: Basophils % 0.6 % (0.1-2.0); Eosinophils % 1.5 % (0.1-12.0); Hematocrit 31.1 % (42.0-52.0); Hemoglobin 9.9 g/dL (14.1-18.0); Lymphocytes # 1.6 K/mm3 (0.7-4.5); Lymphocytes % 57.5 K/mm3 (10-50); Mean Corpuscular HGB Conc 31.7 g/dL (31.8-35.4); Mean Corpuscular Hemoglobin 31.4 pg (27.0-31.2); Mean Corpuscular Volume 99.1 fl (80-94); Mean Platelet Volume 9.9 fl (7.4-10.4); Monocytes # 0.1 K/mm3 (0.1-1.0); Monocytes % 1.8 % (1.7-9.3); Neutrophils # 1.1 K/mm3 (1.8-7.8); Neutrophils % 38.6 % (37.0-80.0); Platelet Count 126 K/mm3 (142-424); Red Blood Count 3.14 M/mm3 (4.60-6.20); Red Cell Distribution Width 23.6 % (11.5-17.5); White Blood Count 2.7 K/mm3 (4.8-10.8)
[2017-08-13 08:59] LABS: MANUAL DIFFERENTIAL MANUAL DIFFERENTIAL (MANUAL DIFF)
[2017-08-13 09:10] VITALS: BP 135/70; PULSE 66; RESP 20; TEMP 36.9; O2SAT 98
[2017-08-13 09:32] LABS: Lymphocytes % 65 % (10-50); Monocytes % 2 % (2-9); Neutrophils % 33 % (42-76); Poikilocytosis 3+; Tear Drop Cells 2+; Total Cells Counted 100
[2017-08-13 09:33] LABS: Stomatocytes 2+
[2017-08-13 09:34] LABS: Anisocytosis 1+; Macrocytosis 1+; Platelet Estimate Slight Decrease
== END 2017-08-13 09:10 | disposition home or self-care (01) ==
LOC: INF 08:29
PROVIDERS: Family Provider Family Medicine; PCP Family Medicine; Visit Provider Internal Medicine
DX: C92.00 Acute myeloblastic leukemia, not having achieved remission (principal)
CPT/HCPCS: 85007; 85025

== ENCOUNTER 2017-08-16 08:35 | Outpatient (CLI) | payer MEDICARE, OTHER, SELFPAY ==
[2017-08-16 08:35] VITALS: BMI 27.2
[2017-08-16 08:57] LABS: Basophils % 0.4 % (0.1-2.0); Eosinophils # 0.1 K/mm3 (0.0-0.4); Eosinophils % 2.3 % (0.1-12.0); Hematocrit 31.5 % (42.0-52.0); Lymphocytes # 1.7 K/mm3 (0.7-4.5); Lymphocytes % 72.2 K/mm3 (10-50); Mean Corpuscular HGB Conc 31.7 g/dL (31.8-35.4); Mean Corpuscular Hemoglobin 31.8 pg (27.0-31.2); Mean Corpuscular Volume 100.3 fl (80-94); Mean Platelet Volume 10.7 fl (7.4-10.4); Monocytes % 1.6 % (1.7-9.3); Neutrophils # 0.6 K/mm3 (1.8-7.8); Neutrophils % 23.5 % (37.0-80.0); Platelet Count 88 K/mm3 (142-424); Red Blood Count 3.14 M/mm3 (4.60-6.20); White Blood Count 2.4 K/mm3 (4.8-10.8)
[2017-08-16 09:00] VITALS: BP 122/70; PULSE 62; RESP 20; TEMP 36.9; O2SAT 96
[2017-08-16 09:01] LABS: MANUAL DIFFERENTIAL MANUAL DIFFERENTIAL (MANUAL DIFF)
[2017-08-16 10:11] LABS: Lymphocytes % 71 % (10-50); Monocytes % 3 % (2-9); Neutrophils % 24 % (42-76); Platelet Estimate Moderate Decrease; Total Cells Counted 100
[2017-08-16 10:12] LABS: Anisocytosis 2+
[2017-08-16 10:13] LABS: Stomatocytes 1+; Tear Drop Cells 1+
== END 2017-08-16 09:00 | disposition home or self-care (01) ==
LOC: INF 08:35
PROVIDERS: Family Provider Family Medicine; PCP Family Medicine; Visit Provider Internal Medicine
DX: C92.00 Acute myeloblastic leukemia, not having achieved remission (principal)
CPT/HCPCS: 85007; 85025

== ENCOUNTER 2017-08-19 08:30 | Outpatient (CLI) | payer MEDICARE, OTHER, SELFPAY ==
[2017-08-19 08:36] VITALS: BMI 27.2
[2017-08-19 08:56] LABS: Basophils % 0.5 % (0.1-2.0); Eosinophils # 0.1 K/mm3 (0.0-0.4); Hematocrit 30.7 % (42.0-52.0); Hemoglobin 9.7 g/dL (14.1-18.0); Lymphocytes # 1.7 K/mm3 (0.7-4.5); Lymphocytes % 86.9 K/mm3 (10-50); Mean Corpuscular HGB Conc 31.8 g/dL (31.8-35.4); Mean Corpuscular Volume 100.9 fl (80-94); Mean Platelet Volume 11.3 fl (7.4-10.4); Monocytes % 0.9 % (1.7-9.3); Neutrophils # 0.2 K/mm3 (1.8-7.8); Platelet Count 61 K/mm3 (142-424); Red Blood Count 3.04 M/mm3 (4.60-6.20); Red Cell Distribution Width 24.8 % (11.5-17.5); White Blood Count 1.9 K/mm3 (4.8-10.8)
[2017-08-19 08:57] LABS: MANUAL DIFFERENTIAL MANUAL DIFFERENTIAL (MANUAL DIFF); Neutrophils % 8.8 % (37.0-80.0)
[2017-08-19 09:14] LABS: Lymphocytes % 76 % (10-50); Neutrophils % 10 % (42-76); Platelet Estimate Moderate Decrease; Tear Drop Cells 1+; Total Cells Counted 50
[2017-08-19 09:15] LABS: Macrocytosis 1+; Ovalocytes 1+
== END 2017-08-19 09:35 | disposition home or self-care (01) ==
LOC: INF 08:40
PROVIDERS: Family Provider Family Medicine; PCP Family Medicine; Visit Provider Internal Medicine
DX: C92.00 Acute myeloblastic leukemia, not having achieved remission (principal)
CPT/HCPCS: 85007; 85025

== ENCOUNTER 2017-08-23 08:35 | Outpatient (CLI) | payer MEDICARE, OTHER, SELFPAY ==
[2017-08-23 08:40] VITALS: BMI 27.6
[2017-08-23 08:57] LABS: Basophils % 0.5 % (0.1-2.0); Eosinophils % 2.4 % (0.1-12.0); Hematocrit 32.5 % (42.0-52.0); Hemoglobin 10.1 g/dL (14.1-18.0); Lymphocytes # 1.4 K/mm3 (0.7-4.5); Lymphocytes % 83.5 K/mm3 (10-50); Mean Corpuscular HGB Conc 31.1 g/dL (31.8-35.4); Mean Corpuscular Hemoglobin 32.3 pg (27.0-31.2); Mean Corpuscular Volume 103.9 fl (80-94); Mean Platelet Volume 10.2 fl (7.4-10.4); Monocytes % 2.6 % (1.7-9.3); Neutrophils # 0.2 K/mm3 (1.8-7.8); Platelet Count 136 K/mm3 (142-424); Red Blood Count 3.13 M/mm3 (4.60-6.20); White Blood Count 1.6 K/mm3 (4.8-10.8)
[2017-08-23 09:00] LABS: Red Cell Distribution Width 25.6 % (11.5-17.5)
[2017-08-23 09:02] LABS: MANUAL DIFFERENTIAL MANUAL DIFFERENTIAL (MANUAL DIFF)
[2017-08-23 09:55] LABS: Anisocytosis 3+; Lymphocytes % 76 % (10-50); Monocytes % 4 % (2-9); Neutrophils % 12 % (42-76); Platelet Estimate Slight Decrease; Total Cells Counted 50
[2017-08-23 09:56] LABS: Macrocytosis 1+
[2017-08-23 09:57] LABS: Tear Drop Cells 1+
== END 2017-08-23 09:10 | disposition home or self-care (01) ==
LOC: INF 08:37
PROVIDERS: Family Provider Family Medicine; PCP Family Medicine; Visit Provider Internal Medicine
DX: C92.00 Acute myeloblastic leukemia, not having achieved remission (principal)
CPT/HCPCS: 85007; 85025

== ENCOUNTER 2017-08-26 08:30 | Outpatient (CLI) | payer MEDICARE, OTHER, SELFPAY ==
[2017-08-26 08:42] VITALS: BMI 26.5
[2017-08-26 08:57] LABS: Basophils % 0.9 % (0.1-2.0); Eosinophils # 0.1 K/mm3 (0.0-0.4); Eosinophils % 2.6 % (0.1-12.0); Hematocrit 34.5 % (42.0-52.0); Hemoglobin 10.8 g/dL (14.1-18.0); Lymphocytes # 1.5 K/mm3 (0.7-4.5); Lymphocytes % 80.2 K/mm3 (10-50); Mean Corpuscular HGB Conc 31.2 g/dL (31.8-35.4); Mean Corpuscular Hemoglobin 33.1 pg (27.0-31.2); Mean Corpuscular Volume 106.4 fl (80-94); Mean Platelet Volume 9.9 fl (7.4-10.4); Monocytes # 0.1 K/mm3 (0.1-1.0); Monocytes % 2.9 % (1.7-9.3); Neutrophils # 0.3 K/mm3 (1.8-7.8); Platelet Count 292 K/mm3 (142-424); Red Blood Count 3.24 M/mm3 (4.60-6.20); Red Cell Distribution Width 24.8 % (11.5-17.5); White Blood Count 1.9 K/mm3 (4.8-10.8)
[2017-08-26 09:01] LABS: Neutrophils % 13.3 % (37.0-80.0)
[2017-08-26 09:03] LABS: MANUAL DIFFERENTIAL MANUAL DIFFERENTIAL (MANUAL DIFF)
[2017-08-26 09:44] LABS: Lymphocytes % 76 % (10-50); Monocytes % 4 % (2-9); Neutrophils % 12 % (42-76); Platelet Estimate Normal; Total Cells Counted 50
[2017-08-26 09:45] LABS: Macrocytosis 2+; Tear Drop Cells 1+
[2017-08-26 09:56] VITALS: BP 143/75; PULSE 54; RESP 18; TEMP 36.6; O2SAT 98
[2017-08-26 10:11] VITALS: BP 141/70; PULSE 58; RESP 18; O2SAT 97
[2017-08-26 10:26] VITALS: BP 140/70; PULSE 59; RESP 18; O2SAT 97
[2017-08-26 10:41] VITALS: BP 142/79; PULSE 59; RESP 18; O2SAT 96
[2017-08-26 10:56] VITALS: BP 138/76; PULSE 56; RESP 18; O2SAT 97
[2017-08-26 11:15] VITALS: BP 144/76; PULSE 58; RESP 18; O2SAT 96
== END 2017-08-26 11:20 | disposition home or self-care (01) ==
LOC: INF 08:38
PROVIDERS: Family Provider Family Medicine; PCP Family Medicine; Visit Provider Internal Medicine
DX: C92.00 Acute myeloblastic leukemia, not having achieved remission (principal)
CPT/HCPCS: 85007; 85025; 96413; J0894

== ENCOUNTER 2017-08-27 08:29 | Outpatient (CLI) | payer MEDICARE, OTHER, SELFPAY ==
[2017-08-27 08:33] VITALS: BMI 27.6
[2017-08-27 08:49] LABS: Eosinophils # 0.1 K/mm3 (0.0-0.4); Eosinophils % 2.8 % (0.1-12.0); Hematocrit 35.8 % (42.0-52.0); Lymphocytes # 1.4 K/mm3 (0.7-4.5); Lymphocytes % 79.4 K/mm3 (10-50); Mean Corpuscular HGB Conc 30.8 g/dL (31.8-35.4); Mean Corpuscular Hemoglobin 32.8 pg (27.0-31.2); Mean Corpuscular Volume 106.5 fl (80-94); Monocytes # 0.1 K/mm3 (0.1-1.0); Monocytes % 3.3 % (1.7-9.3); Neutrophils # 0.2 K/mm3 (1.8-7.8); Neutrophils % 13.5 % (37.0-80.0); Platelet Count 348 K/mm3 (142-424); Red Blood Count 3.36 M/mm3 (4.60-6.20); Red Cell Distribution Width 24.5 % (11.5-17.5); White Blood Count 1.8 K/mm3 (4.8-10.8)
[2017-08-27 08:50] LABS: MANUAL DIFFERENTIAL MANUAL DIFFERENTIAL (MANUAL DIFF)
[2017-08-27 09:03] LABS: Lymphocytes % 52 % (10-50); Monocytes % 2 % (2-9); Neutrophils % 22 % (42-76); Platelet Estimate Normal; Tear Drop Cells 1+; Total Cells Counted 50
[2017-08-27 09:04] LABS: Schistocytes 1+
[2017-08-27 09:35] VITALS: BP 123/80; PULSE 55; RESP 20; TEMP 36.4; O2SAT 98
[2017-08-27 10:00] VITALS: BP 115/64; PULSE 68; RESP 20; TEMP 36.6; O2SAT 98
[2017-08-27 10:40] VITALS: BP 116/68; PULSE 57; RESP 20; TEMP 36.9; O2SAT 96
== END 2017-08-27 10:45 | disposition home or self-care (01) ==
LOC: INF 08:29
PROVIDERS: Family Provider Family Medicine; PCP Family Medicine; Visit Provider Internal Medicine
DX: C92.00 Acute myeloblastic leukemia, not having achieved remission (principal); Z51.11 Encounter for antineoplastic chemotherapy
CPT/HCPCS: 85007; 85025; 96413; J0894

== ENCOUNTER 2017-08-28 08:43 | Outpatient (CLI) | payer MEDICARE, OTHER, SELFPAY ==
[2017-08-28 08:40] VITALS: BMI 26.5
[2017-08-28 08:49] LABS: Basophils % 1.1 % (0.1-2.0); Eosinophils % 2.1 % (0.1-12.0); Hematocrit 37.2 % (42.0-52.0); Hemoglobin 11.4 g/dL (14.1-18.0); Lymphocytes # 1.5 K/mm3 (0.7-4.5); Lymphocytes % 80.8 K/mm3 (10-50); Mean Corpuscular HGB Conc 30.6 g/dL (31.8-35.4); Mean Corpuscular Hemoglobin 32.4 pg (27.0-31.2); Mean Corpuscular Volume 105.9 fl (80-94); Mean Platelet Volume 9.1 fl (7.4-10.4); Monocytes # 0.1 K/mm3 (0.1-1.0); Monocytes % 4.6 % (1.7-9.3); Neutrophils # 0.2 K/mm3 (1.8-7.8); Platelet Count 405 K/mm3 (142-424); Red Blood Count 3.52 M/mm3 (4.60-6.20); Red Cell Distribution Width 23.9 % (11.5-17.5); White Blood Count 1.9 K/mm3 (4.8-10.8)
[2017-08-28 08:51] LABS: Neutrophils % 11.3 % (37.0-80.0)
[2017-08-28 08:52] LABS: MANUAL DIFFERENTIAL MANUAL DIFFERENTIAL (MANUAL DIFF)
[2017-08-28 09:23] LABS: Anisocytosis 1+; Eosinophils % 3 % (0-3); Lymphocytes % 70 % (10-50); Macrocytosis 1+; Monocytes % 1 % (2-9); Neutrophils % 16 % (42-76); Total Cells Counted 100
[2017-08-28 09:24] LABS: Platelet Estimate Slight Increase
[2017-08-28 09:50] VITALS: BP 156/72; PULSE 54; RESP 18; TEMP 36.5; O2SAT 97
[2017-08-28 10:20] VITALS: BP 152/74; PULSE 56; RESP 18; O2SAT 98
[2017-08-28 10:50] VITALS: BP 154/77; PULSE 58; RESP 18; O2SAT 97
[2017-08-28 11:05] VITALS: BP 155/71; PULSE 60; RESP 18; O2SAT 97
== END 2017-08-28 11:10 | disposition home or self-care (01) ==
LOC: INF 08:43
PROVIDERS: Family Provider Family Medicine; PCP Family Medicine; Visit Provider Internal Medicine
DX: C92.00 Acute myeloblastic leukemia, not having achieved remission (principal)
CPT/HCPCS: 85007; 85025; 96413; J0894

== ENCOUNTER 2017-08-29 08:25 | Outpatient (CLI) | payer MEDICARE, OTHER, SELFPAY ==
[2017-08-29 08:29] VITALS: BMI 26.5
[2017-08-29 08:46] LABS: Basophils % 1.2 % (0.1-2.0); Eosinophils # 0.1 K/mm3 (0.0-0.4); Eosinophils % 2.2 % (0.1-12.0); Hematocrit 37.5 % (42.0-52.0); Hemoglobin 11.4 g/dL (14.1-18.0); Lymphocytes # 1.6 K/mm3 (0.7-4.5); Lymphocytes % 77.7 K/mm3 (10-50); Mean Corpuscular HGB Conc 30.3 g/dL (31.8-35.4); Mean Corpuscular Hemoglobin 32.6 pg (27.0-31.2); Mean Corpuscular Volume 107.3 fl (80-94); Mean Platelet Volume 8.9 fl (7.4-10.4); Monocytes # 0.1 K/mm3 (0.1-1.0); Monocytes % 4.8 % (1.7-9.3); Neutrophils # 0.3 K/mm3 (1.8-7.8); Platelet Count 430 K/mm3 (142-424); White Blood Count 2.1 K/mm3 (4.8-10.8)
[2017-08-29 08:57] LABS: Neutrophils % 14.1 % (37.0-80.0)
[2017-08-29 08:59] LABS: MANUAL DIFFERENTIAL MANUAL DIFFERENTIAL (MANUAL DIFF)
[2017-08-29 09:50] VITALS: BP 145/78; PULSE 50; RESP 20; TEMP 36.7; O2SAT 97
[2017-08-29 10:04] LABS: Eosinophils % 1 % (0-3); Lymphocytes % 73 % (10-50); Monocytes % 2 % (2-9); Neutrophils % 18 % (42-76); Nucleated Red Blood Cells 1; Total Cells Counted 100
[2017-08-29 10:07] LABS: Anisocytosis 2+; Macrocytosis 2+; Platelet Estimate Slight Increase
[2017-08-29 10:20] VITALS: BP 141/74; PULSE 54; RESP 18; O2SAT 97
[2017-08-29 10:50] VITALS: BP 146/71; PULSE 55; RESP 18; O2SAT 97
== END 2017-08-29 11:00 | disposition home or self-care (01) ==
LOC: INF 08:48
PROVIDERS: Family Provider Family Medicine; PCP Family Medicine; Visit Provider Internal Medicine
DX: Z51.11 Encounter for antineoplastic chemotherapy (principal); C92.00 Acute myeloblastic leukemia, not having achieved remission
CPT/HCPCS: 85007; 85025; 96413; J0894

== ENCOUNTER 2017-08-30 08:30 | Outpatient (CLI) | payer MEDICARE, OTHER, SELFPAY ==
[2017-08-30 08:42] VITALS: BMI 27.9
[2017-08-30 09:04] LABS: Basophils % 0.8 % (0.1-2.0); Eosinophils # 0.1 K/mm3 (0.0-0.4); Eosinophils % 2.4 % (0.1-12.0); Hematocrit 37.1 % (42.0-52.0); Hemoglobin 11.6 g/dL (14.1-18.0); Lymphocytes # 1.5 K/mm3 (0.7-4.5); Lymphocytes % 71.9 K/mm3 (10-50); Mean Corpuscular HGB Conc 31.3 g/dL (31.8-35.4); Mean Corpuscular Hemoglobin 33.9 pg (27.0-31.2); Mean Corpuscular Volume 108.1 fl (80-94); Mean Platelet Volume 8.8 fl (7.4-10.4); Monocytes # 0.1 K/mm3 (0.1-1.0); Monocytes % 5.2 % (1.7-9.3); Neutrophils # 0.4 K/mm3 (1.8-7.8); Neutrophils % 19.6 % (37.0-80.0); Platelet Count 447 K/mm3 (142-424); Red Blood Count 3.44 M/mm3 (4.60-6.20); Red Cell Distribution Width 23.7 % (11.5-17.5); White Blood Count 2.1 K/mm3 (4.8-10.8)
[2017-08-30 09:21] LABS: MANUAL DIFFERENTIAL MANUAL DIFFERENTIAL (MANUAL DIFF)
[2017-08-30 09:49] LABS: Lymphocytes % 74 % (10-50); Monocytes % 5 % (2-9); Neutrophils % 18 % (42-76); Total Cells Counted 100
[2017-08-30 09:50] LABS: Anisocytosis 2+; Macrocytosis 2+
[2017-08-30 09:51] LABS: Platelet Estimate Moderate Increase
[2017-08-30 10:20] VITALS: BP 147/71; PULSE 49; RESP 18; TEMP 36.7
[2017-08-30 10:35] VITALS: BP 131/68; PULSE 48; RESP 18
[2017-08-30 10:50] VITALS: BP 132/78; PULSE 48; RESP 18
[2017-08-30 11:05] VITALS: BP 153/75; PULSE 48; RESP 18
[2017-08-30 11:20] VITALS: BP 143/71; PULSE 47; RESP 18
[2017-08-30 11:30] VITALS: BP 151/70; PULSE 48; RESP 18
== END 2017-08-30 11:55 | disposition home or self-care (01) ==
LOC: INF 08:40
PROVIDERS: Family Provider Family Medicine; PCP Family Medicine; Visit Provider Internal Medicine
DX: Z51.11 Encounter for antineoplastic chemotherapy (principal); C92.00 Acute myeloblastic leukemia, not having achieved remission
CPT/HCPCS: 85007; 85025; 96413; 96415; J0894

== ENCOUNTER 2017-09-02 08:28 | Outpatient (CLI) | payer MEDICARE, OTHER, SELFPAY ==
[2017-09-02 08:33] VITALS: BMI 27.6
[2017-09-02 08:50] LABS: Basophils % 0.8 % (0.1-2.0); Eosinophils % 1.2 % (0.1-12.0); Hematocrit 38.1 % (42.0-52.0); Hemoglobin 11.9 g/dL (14.1-18.0); Lymphocytes # 1.7 K/mm3 (0.7-4.5); Mean Corpuscular HGB Conc 31.3 g/dL (31.8-35.4); Mean Corpuscular Hemoglobin 33.6 pg (27.0-31.2); Mean Corpuscular Volume 107.5 fl (80-94); Mean Platelet Volume 9.2 fl (7.4-10.4); Monocytes # 0.1 K/mm3 (0.1-1.0); Monocytes % 3.9 % (1.7-9.3); Neutrophils # 0.8 K/mm3 (1.8-7.8); Neutrophils % 29.3 % (37.0-80.0); Platelet Count 416 K/mm3 (142-424); Red Blood Count 3.55 M/mm3 (4.60-6.20); Red Cell Distribution Width 23.2 % (11.5-17.5); White Blood Count 2.6 K/mm3 (4.8-10.8)
[2017-09-02 08:52] LABS: MANUAL DIFFERENTIAL MANUAL DIFFERENTIAL (MANUAL DIFF)
[2017-09-02 09:00] VITALS: BP 125/72; PULSE 57; RESP 18; TEMP 36.7; O2SAT 97
[2017-09-02 09:22] LABS: Eosinophils % 1 % (0-3); Lymphocytes % 63 % (10-50); Macrocytosis 2+; Monocytes % 3 % (2-9); Neutrophils % 29 % (42-76); Platelet Estimate Normal; Total Cells Counted 100
== END 2017-09-02 09:00 | disposition home or self-care (01) ==
LOC: INF 08:28
PROVIDERS: Family Provider Family Medicine; PCP Family Medicine; Visit Provider Internal Medicine
DX: C92.00 Acute myeloblastic leukemia, not having achieved remission (principal)
CPT/HCPCS: 85007; 85025

== ENCOUNTER 2017-09-04 08:11 | Outpatient (CLI) | payer MEDICARE, OTHER, SELFPAY ==
[2017-09-04 08:24] VITALS: BMI 27.6
[2017-09-04 08:41] LABS: Basophils % 0.7 % (0.1-2.0); Eosinophils # 0.1 K/mm3 (0.0-0.4); Eosinophils % 1.6 % (0.1-12.0); Hematocrit 38.5 % (42.0-52.0); Hemoglobin 11.6 g/dL (14.1-18.0); Lymphocytes # 1.8 K/mm3 (0.7-4.5); Lymphocytes % 57.5 K/mm3 (10-50); Mean Corpuscular Hemoglobin 33.1 pg (27.0-31.2); Mean Corpuscular Volume 110.2 fl (80-94); Mean Platelet Volume 9.4 fl (7.4-10.4); Monocytes # 0.2 K/mm3 (0.1-1.0); Monocytes % 6.7 % (1.7-9.3); Neutrophils % 33.5 % (37.0-80.0); Platelet Count 344 K/mm3 (142-424); Red Cell Distribution Width 22.8 % (11.5-17.5); White Blood Count 3.1 K/mm3 (4.8-10.8)
[2017-09-04 08:43] LABS: MANUAL DIFFERENTIAL MANUAL DIFFERENTIAL (MANUAL DIFF)
[2017-09-04 09:21] LABS: Eosinophils % 1 % (0-3); Lymphocytes % 52 % (10-50); Monocytes % 7 % (2-9); Myelocytes % 1 (0-1); Neutrophils % 33 % (42-76); Total Cells Counted 100
[2017-09-04 09:22] LABS: Anisocytosis 2+; Macrocytosis 2+; Platelet Estimate Normal
== END 2017-09-04 08:50 | disposition home or self-care (01) ==
LOC: INF 08:11
PROVIDERS: Family Provider Family Medicine; PCP Family Medicine; Visit Provider Internal Medicine
DX: C92.00 Acute myeloblastic leukemia, not having achieved remission (principal)
CPT/HCPCS: 85007; 85025

== ENCOUNTER 2017-09-06 08:30 | Outpatient (CLI) | payer MEDICARE, OTHER, SELFPAY ==
[2017-09-06 08:43] VITALS: BMI 27.9
[2017-09-06 09:00] LABS: Basophils % 0.5 % (0.1-2.0); Hematocrit 39.1 % (42.0-52.0); Lymphocytes # 1.6 K/mm3 (0.7-4.5); Lymphocytes % 48.5 K/mm3 (10-50); Mean Corpuscular HGB Conc 30.6 g/dL (31.8-35.4); Mean Corpuscular Hemoglobin 33.8 pg (27.0-31.2); Mean Corpuscular Volume 110.3 fl (80-94); Mean Platelet Volume 9.4 fl (7.4-10.4); Monocytes # 0.1 K/mm3 (0.1-1.0); Monocytes % 4.1 % (1.7-9.3); Neutrophils # 1.5 K/mm3 (1.8-7.8); Neutrophils % 45.9 % (37.0-80.0); Platelet Count 294 K/mm3 (142-424); Red Blood Count 3.54 M/mm3 (4.60-6.20); Red Cell Distribution Width 22.6 % (11.5-17.5); White Blood Count 3.3 K/mm3 (4.8-10.8)
== END 2017-09-06 09:40 | disposition home or self-care (01) ==
LOC: INF 08:40
PROVIDERS: Family Provider Family Medicine; PCP Family Medicine; Visit Provider Internal Medicine
DX: C92.00 Acute myeloblastic leukemia, not having achieved remission (principal)
CPT/HCPCS: 85025

== ENCOUNTER 2017-09-09 08:00 | Outpatient (CLI) | payer MEDICARE, OTHER, SELFPAY ==
[2017-09-09 08:34] VITALS: BMI 27.9
[2017-09-09 08:56] LABS: Basophils % 0.3 % (0.1-2.0); Eosinophils # 0.1 K/mm3 (0.0-0.4); Eosinophils % 1.2 % (0.1-12.0); Hematocrit 39.1 % (42.0-52.0); Hemoglobin 12.1 g/dL (14.1-18.0); Lymphocytes # 2.1 K/mm3 (0.7-4.5); Lymphocytes % 46.1 K/mm3 (10-50); Mean Corpuscular HGB Conc 30.9 g/dL (31.8-35.4); Mean Corpuscular Hemoglobin 33.9 pg (27.0-31.2); Mean Corpuscular Volume 109.5 fl (80-94); Mean Platelet Volume 9.7 fl (7.4-10.4); Monocytes # 0.3 K/mm3 (0.1-1.0); Neutrophils % 45.3 % (37.0-80.0); Platelet Count 264 K/mm3 (142-424); Red Blood Count 3.57 M/mm3 (4.60-6.20); Red Cell Distribution Width 22.2 % (11.5-17.5); White Blood Count 4.5 K/mm3 (4.8-10.8)
[2017-09-09 09:15] VITALS: BP 122/78; PULSE 68; RESP 20; TEMP 37.1; O2SAT 96
== END 2017-09-09 09:15 | disposition home or self-care (01) ==
LOC: INF 11:23
PROVIDERS: Family Provider Family Medicine; PCP Family Medicine; Visit Provider Internal Medicine
DX: C92.00 Acute myeloblastic leukemia, not having achieved remission (principal)
CPT/HCPCS: 85025

== ENCOUNTER 2017-09-11 10:39 | Outpatient (CLI) | payer MEDICARE, OTHER, SELFPAY ==
[2017-09-11 10:40] VITALS: BMI 27.6
[2017-09-11 11:00] VITALS: BP 144/69; PULSE 56; RESP 18; TEMP 36.9
[2017-09-11 11:00] LABS: Basophils % 0.5 % (0.1-2.0); Eosinophils # 0.1 K/mm3 (0.0-0.4); Eosinophils % 1.2 % (0.1-12.0); Hemoglobin 12.1 g/dL (14.1-18.0); Lymphocytes # 1.7 K/mm3 (0.7-4.5); Mean Corpuscular Volume 109.6 fl (80-94); Mean Platelet Volume 8.9 fl (7.4-10.4); Monocytes # 0.3 K/mm3 (0.1-1.0); Monocytes % 7.3 % (1.7-9.3); Neutrophils # 2.4 K/mm3 (1.8-7.8); Platelet Count 245 K/mm3 (142-424); Red Blood Count 3.56 M/mm3 (4.60-6.20); Red Cell Distribution Width 22.1 % (11.5-17.5); White Blood Count 4.5 K/mm3 (4.8-10.8)
== END 2017-09-11 11:20 | disposition home or self-care (01) ==
LOC: INF 10:39
PROVIDERS: Family Provider Family Medicine; PCP Family Medicine; Visit Provider Internal Medicine
DX: C92.00 Acute myeloblastic leukemia, not having achieved remission (principal)
CPT/HCPCS: 85025

== ENCOUNTER 2017-09-13 13:45 | Outpatient (CLI) | payer MEDICARE, OTHER, SELFPAY ==
[2017-09-13 14:01] VITALS: BMI 26.5
[2017-09-13 14:29] LABS: Basophils % 0.4 % (0.1-2.0); Eosinophils # 0.1 K/mm3 (0.0-0.4); Eosinophils % 1.1 % (0.1-12.0); Hematocrit 39.5 % (42.0-52.0); Hemoglobin 12.6 g/dL (14.1-18.0); Lymphocytes # 1.8 K/mm3 (0.7-4.5); Lymphocytes % 43.9 K/mm3 (10-50); Mean Corpuscular HGB Conc 31.8 g/dL (31.8-35.4); Mean Corpuscular Hemoglobin 34.6 pg (27.0-31.2); Mean Corpuscular Volume 108.9 fl (80-94); Mean Platelet Volume 9.1 fl (7.4-10.4); Monocytes # 0.4 K/mm3 (0.1-1.0); Monocytes % 8.6 % (1.7-9.3); Neutrophils # 1.9 K/mm3 (1.8-7.8); Neutrophils % 45.9 % (37.0-80.0); Platelet Count 224 K/mm3 (142-424); Red Blood Count 3.63 M/mm3 (4.60-6.20); Red Cell Distribution Width 21.6 % (11.5-17.5); White Blood Count 4.2 K/mm3 (4.8-10.8)
== END 2017-09-13 14:00 | disposition home or self-care (01) ==
LOC: INF 13:55
PROVIDERS: Family Provider Family Medicine; PCP Family Medicine; Visit Provider Internal Medicine
DX: C92.00 Acute myeloblastic leukemia, not having achieved remission (principal)
CPT/HCPCS: 85025

== ENCOUNTER 2017-09-19 09:00 | Outpatient (CLI) | payer MEDICARE, OTHER, SELFPAY ==
[2017-09-19 09:04] VITALS: BMI 27.9
[2017-09-19 09:28] LABS: Basophils % 1.3 % (0.1-2.0); Eosinophils # 0.1 K/mm3 (0.0-0.4); Eosinophils % 2.7 % (0.1-12.0); Hematocrit 43.9 % (42.0-52.0); Hemoglobin 13.4 g/dL (14.1-18.0); Lymphocytes # 1.9 K/mm3 (0.7-4.5); Mean Corpuscular HGB Conc 30.6 g/dL (31.8-35.4); Mean Corpuscular Volume 111.3 fl (80-94); Mean Platelet Volume 9.5 fl (7.4-10.4); Monocytes # 0.1 K/mm3 (0.1-1.0); Monocytes % 3.6 % (1.7-9.3); Neutrophils # 1.1 K/mm3 (1.8-7.8); Neutrophils % 33.4 % (37.0-80.0); Platelet Count 164 K/mm3 (142-424); Red Blood Count 3.95 M/mm3 (4.60-6.20); Red Cell Distribution Width 20.4 % (11.5-17.5); White Blood Count 3.2 K/mm3 (4.8-10.8)
[2017-09-19 09:30] LABS: MANUAL DIFFERENTIAL MANUAL DIFFERENTIAL (MANUAL DIFF)
[2017-09-19 10:27] LABS: Eosinophils % 4 % (0-3); Lymphocytes % 56 % (10-50); Monocytes % 4 % (2-9); Neutrophils % 34 % (42-76); Total Cells Counted 100
[2017-09-19 10:30] LABS: Anisocytosis 2+; Macrocytosis 2+
[2017-09-19 10:31] LABS: Platelet Estimate Normal
== END 2017-09-19 10:02 | disposition home or self-care (01) ==
LOC: INF 09:04
PROVIDERS: Family Provider Family Medicine; PCP Family Medicine; Visit Provider Internal Medicine
DX: C92.00 Acute myeloblastic leukemia, not having achieved remission (principal)
CPT/HCPCS: 85007; 85025

== ENCOUNTER 2017-09-23 08:45 | Outpatient (CLI) | payer MEDICARE, OTHER, SELFPAY ==
[2017-09-23 08:45] VITALS: BMI 27.9
[2017-09-23 09:05] LABS: Basophils % 1.1 % (0.1-2.0); Eosinophils # 0.2 K/mm3 (0.0-0.4); Eosinophils % 4.7 % (0.1-12.0); Hematocrit 43.6 % (42.0-52.0); Hemoglobin 13.6 g/dL (14.1-18.0); Lymphocytes # 1.7 K/mm3 (0.7-4.5); Lymphocytes % 55.4 K/mm3 (10-50); Mean Corpuscular HGB Conc 31.2 g/dL (31.8-35.4); Mean Corpuscular Hemoglobin 34.9 pg (27.0-31.2); Mean Corpuscular Volume 111.8 fl (80-94); Mean Platelet Volume 9.3 fl (7.4-10.4); Monocytes # 0.1 K/mm3 (0.1-1.0); Monocytes % 3.6 % (1.7-9.3); Neutrophils # 1.1 K/mm3 (1.8-7.8); Neutrophils % 35.1 % (37.0-80.0); Platelet Count 175 K/mm3 (142-424); Red Cell Distribution Width 19.3 % (11.5-17.5); White Blood Count 3.1 K/mm3 (4.8-10.8)
[2017-09-23 09:06] LABS: MANUAL DIFFERENTIAL MANUAL DIFFERENTIAL (MANUAL DIFF)
[2017-09-23 09:55] VITALS: BP 147/71; PULSE 68; RESP 20; TEMP 36.9; O2SAT 96
[2017-09-23 10:01] LABS: Eosinophils % 2 % (0-3); Lymphocytes % 49 % (10-50); Monocytes % 2 % (2-9); Neutrophils % 39 % (42-76); Total Cells Counted 100
[2017-09-23 10:02] LABS: Macrocytosis 2+; Platelet Estimate Normal
[2017-09-23 10:03] LABS: Anisocytosis 2+
[2017-09-23 10:30] VITALS: BP 145/72; PULSE 58; RESP 20; TEMP 37.1; O2SAT 96
[2017-09-23 11:00] VITALS: BP 150/78; PULSE 58; RESP 22; O2SAT 96
[2017-09-23 11:10] VITALS: BP 151/81; PULSE 68; RESP 18; TEMP 37.1; O2SAT 96
== END 2017-09-23 11:10 | disposition home or self-care (01) ==
LOC: INF 08:45
PROVIDERS: Family Provider Family Medicine; PCP Family Medicine; Visit Provider Internal Medicine
DX: Z51.11 Encounter for antineoplastic chemotherapy (principal); C92.00 Acute myeloblastic leukemia, not having achieved remission
CPT/HCPCS: 85007; 85025; 96413; J0894

== ENCOUNTER 2017-09-24 08:41 | Outpatient (CLI) | payer MEDICARE, OTHER, SELFPAY ==
[2017-09-24 08:48] VITALS: BMI 27.9
[2017-09-24 09:18] LABS: Basophils % 1.3 % (0.1-2.0); Eosinophils # 0.2 K/mm3 (0.0-0.4); Eosinophils % 5.1 % (0.1-12.0); Hematocrit 44.1 % (42.0-52.0); Hemoglobin 13.8 g/dL (14.1-18.0); Lymphocytes # 1.8 K/mm3 (0.7-4.5); Lymphocytes % 57.1 K/mm3 (10-50); Mean Corpuscular HGB Conc 31.3 g/dL (31.8-35.4); Mean Corpuscular Hemoglobin 34.8 pg (27.0-31.2); Mean Corpuscular Volume 111.2 fl (80-94); Mean Platelet Volume 9.4 fl (7.4-10.4); Monocytes # 0.1 K/mm3 (0.1-1.0); Monocytes % 3.6 % (1.7-9.3); Neutrophils % 32.9 % (37.0-80.0); Platelet Count 193 K/mm3 (142-424); Red Blood Count 3.97 M/mm3 (4.60-6.20); Red Cell Distribution Width 19.1 % (11.5-17.5); White Blood Count 3.1 K/mm3 (4.8-10.8)
[2017-09-24 09:22] LABS: MANUAL DIFFERENTIAL MANUAL DIFFERENTIAL (MANUAL DIFF)
[2017-09-24 09:53] VITALS: BP 159/74; PULSE 56; RESP 18; TEMP 36.6; O2SAT 96
[2017-09-24 10:20] LABS: Eosinophils % 7 % (0-3); Lymphocytes % 32 % (10-50); Monocytes % 4 % (2-9); Neutrophils % 43 % (42-76); Total Cells Counted 100
[2017-09-24 10:22] LABS: Anisocytosis 2+; Macrocytosis 2+; Platelet Estimate Normal
[2017-09-24 10:23] VITALS: BP 157/77; PULSE 60; RESP 18; O2SAT 96
[2017-09-24 10:53] VITALS: BP 155/71; PULSE 62; RESP 18; O2SAT 96
[2017-09-24 11:25] VITALS: BP 152/74; PULSE 53; RESP 18; O2SAT 95
== END 2017-09-24 11:30 | disposition home or self-care (01) ==
LOC: INF 08:41
PROVIDERS: Family Provider Family Medicine; PCP Family Medicine; Visit Provider Internal Medicine
DX: Z51.11 Encounter for antineoplastic chemotherapy (principal); C92.00 Acute myeloblastic leukemia, not having achieved remission
CPT/HCPCS: 85007; 85025; 96413; 96415; J0894

== ENCOUNTER 2017-09-25 08:35 | Outpatient (CLI) | payer MEDICARE, OTHER, SELFPAY ==
[2017-09-25 08:42] VITALS: BMI 28.4
[2017-09-25 09:02] LABS: Eosinophils # 0.2 K/mm3 (0.0-0.4); Eosinophils % 6.3 % (0.1-12.0); Hematocrit 43.7 % (42.0-52.0); Hemoglobin 13.8 g/dL (14.1-18.0); Lymphocytes # 1.7 K/mm3 (0.7-4.5); Lymphocytes % 52.8 K/mm3 (10-50); Mean Corpuscular HGB Conc 31.6 g/dL (31.8-35.4); Mean Corpuscular Hemoglobin 35.1 pg (27.0-31.2); Mean Corpuscular Volume 111.2 fl (80-94); Mean Platelet Volume 9.4 fl (7.4-10.4); Monocytes # 0.1 K/mm3 (0.1-1.0); Monocytes % 3.8 % (1.7-9.3); Neutrophils # 1.2 K/mm3 (1.8-7.8); Neutrophils % 36.2 % (37.0-80.0); Platelet Count 179 K/mm3 (142-424); Red Blood Count 3.93 M/mm3 (4.60-6.20); Red Cell Distribution Width 18.6 % (11.5-17.5); White Blood Count 3.2 K/mm3 (4.8-10.8)
[2017-09-25 09:05] LABS: MANUAL DIFFERENTIAL MANUAL DIFFERENTIAL (MANUAL DIFF)
[2017-09-25 09:45] VITALS: BP 123/66; PULSE 55; RESP 18; TEMP 37
[2017-09-25 10:00] VITALS: BP 137/63; PULSE 53; RESP 18
[2017-09-25 10:15] VITALS: BP 85/60; PULSE 55; RESP 16
[2017-09-25 10:16] LABS: Lymphocytes % 46 % (10-50); Monocytes % 3 % (2-9); Neutrophils % 48 % (42-76); Total Cells Counted 100
[2017-09-25 10:17] LABS: Anisocytosis 2+; Macrocytosis 2+
[2017-09-25 10:21] LABS: Platelet Estimate Normal
[2017-09-25 10:30] VITALS: BP 117/78; PULSE 53; RESP 16
[2017-09-25 10:45] VITALS: BP 122/93; PULSE 52; RESP 16
[2017-09-25 10:55] VITALS: BP 125/70; PULSE 53; RESP 16
== END 2017-09-25 11:10 | disposition home or self-care (01) ==
LOC: INF 08:39
PROVIDERS: Family Provider Family Medicine; PCP Family Medicine; Visit Provider Internal Medicine
DX: Z51.11 Encounter for antineoplastic chemotherapy (principal); C92.00 Acute myeloblastic leukemia, not having achieved remission
CPT/HCPCS: 85007; 85025; 96413; J0894

== ENCOUNTER 2017-09-26 08:30 | Outpatient (CLI) | payer MEDICARE, OTHER, SELFPAY ==
[2017-09-26 08:44] VITALS: BMI 28.4
[2017-09-26 08:52] LABS: Basophils % 1.1 % (0.1-2.0); Eosinophils # 0.2 K/mm3 (0.0-0.4); Eosinophils % 6.4 % (0.1-12.0); Hematocrit 43.9 % (42.0-52.0); Hemoglobin 13.6 g/dL (14.1-18.0); Lymphocytes # 1.3 K/mm3 (0.7-4.5); Lymphocytes % 50.5 K/mm3 (10-50); Mean Corpuscular Hemoglobin 34.7 pg (27.0-31.2); Mean Corpuscular Volume 111.9 fl (80-94); Mean Platelet Volume 9.5 fl (7.4-10.4); Monocytes # 0.1 K/mm3 (0.1-1.0); Monocytes % 4.8 % (1.7-9.3); Neutrophils % 37.2 % (37.0-80.0); Platelet Count 190 K/mm3 (142-424); Red Blood Count 3.92 M/mm3 (4.60-6.20); Red Cell Distribution Width 18.6 % (11.5-17.5); White Blood Count 2.7 K/mm3 (4.8-10.8)
[2017-09-26 08:55] LABS: MANUAL DIFFERENTIAL MANUAL DIFFERENTIAL (MANUAL DIFF)
[2017-09-26 09:37] VITALS: BP 147/67; PULSE 53; RESP 18; TEMP 36.4; O2SAT 96
[2017-09-26 09:37] LABS: Eosinophils % 9 % (0-3); Lymphocytes % 38 % (10-50); Monocytes % 4 % (2-9); Neutrophils % 34 % (42-76); Total Cells Counted 100
[2017-09-26 09:38] LABS: Anisocytosis 2+; Macrocytosis 2+
[2017-09-26 09:41] LABS: Platelet Estimate Normal; Poikilocytosis 1+; Stomatocytes 1+
[2017-09-26 10:07] VITALS: BP 145/61; PULSE 58; RESP 18; O2SAT 96
[2017-09-26 10:37] VITALS: BP 141/69; PULSE 57; RESP 18; O2SAT 97
[2017-09-26 11:00] VITALS: BP 145/72; PULSE 51; RESP 18; O2SAT 96
== END 2017-09-26 11:15 | disposition home or self-care (01) ==
LOC: INF 08:42
PROVIDERS: Family Provider Family Medicine; PCP Family Medicine; Visit Provider Internal Medicine
DX: Z51.11 Encounter for antineoplastic chemotherapy (principal); C92.00 Acute myeloblastic leukemia, not having achieved remission
CPT/HCPCS: 85007; 85025; 96413; J0894

== ENCOUNTER 2017-09-27 08:30 | Outpatient (CLI) | payer MEDICARE, OTHER, SELFPAY ==
[2017-09-27 08:30] VITALS: BP 149/79; PULSE 59; RESP 20; TEMP 36.6; O2SAT 96; BMI 27.9
[2017-09-27 09:02] LABS: Basophils % 0.7 % (0.1-2.0); Eosinophils # 0.2 K/mm3 (0.0-0.4); Hematocrit 42.6 % (42.0-52.0); Hemoglobin 13.3 g/dL (14.1-18.0); Lymphocytes # 1.5 K/mm3 (0.7-4.5); Lymphocytes % 53.5 K/mm3 (10-50); Mean Corpuscular HGB Conc 31.2 g/dL (31.8-35.4); Mean Corpuscular Hemoglobin 34.8 pg (27.0-31.2); Mean Corpuscular Volume 111.4 fl (80-94); Mean Platelet Volume 9.7 fl (7.4-10.4); Monocytes # 0.1 K/mm3 (0.1-1.0); Monocytes % 5.1 % (1.7-9.3); Neutrophils # 0.9 K/mm3 (1.8-7.8); Neutrophils % 33.8 % (37.0-80.0); Platelet Count 216 K/mm3 (142-424); Red Blood Count 3.83 M/mm3 (4.60-6.20); Red Cell Distribution Width 18.6 % (11.5-17.5); White Blood Count 2.8 K/mm3 (4.8-10.8)
[2017-09-27 09:17] LABS: MANUAL DIFFERENTIAL MANUAL DIFFERENTIAL (MANUAL DIFF)
[2017-09-27 09:49] LABS: Eosinophils % 6 % (0-3); Lymphocytes % 50 % (10-50); Monocytes % 8 % (2-9); Neutrophils % 32 % (42-76); Total Cells Counted 100
[2017-09-27 09:50] LABS: Macrocytosis 2+; Platelet Estimate Normal; Tear Drop Cells 1+
[2017-09-27 09:51] LABS: Anisocytosis 2+
[2017-09-27 09:52] LABS: Stomatocytes 1+
[2017-09-27 09:53] LABS: Poikilocytosis 1+
[2017-09-27 10:30] VITALS: BP 162/79; PULSE 55; RESP 20; TEMP 36.6; O2SAT 98
[2017-09-27 11:00] VITALS: BP 175/80; PULSE 68; RESP 20; TEMP 37.1; O2SAT 96
[2017-09-27 11:30] VITALS: BP 165/78; PULSE 68; RESP 20; TEMP 36.9; O2SAT 96
[2017-09-27 11:50] VITALS: BP 175/80; PULSE 52; RESP 20; TEMP 36.6; O2SAT 98
== END 2017-09-27 11:55 | disposition home or self-care (01) ==
LOC: INF 08:40
PROVIDERS: Family Provider Family Medicine; PCP Family Medicine; Visit Provider Internal Medicine
DX: Z51.11 Encounter for antineoplastic chemotherapy (principal); C92.00 Acute myeloblastic leukemia, not having achieved remission
CPT/HCPCS: 85007; 85025; 96413; J0894

== ENCOUNTER 2017-10-01 08:37 | Outpatient (CLI) | payer MEDICARE, OTHER, SELFPAY ==
[2017-10-01 08:40] VITALS: BMI 28.4
[2017-10-01 09:08] LABS: Basophils % 0.7 % (0.1-2.0); Eosinophils # 0.2 K/mm3 (0.0-0.4); Eosinophils % 5.6 % (0.1-12.0); Hematocrit 43.3 % (42.0-52.0); Hemoglobin 13.7 g/dL (14.1-18.0); Lymphocytes # 1.6 K/mm3 (0.7-4.5); Lymphocytes % 43.2 K/mm3 (10-50); Mean Corpuscular HGB Conc 31.6 g/dL (31.8-35.4); Mean Corpuscular Hemoglobin 34.7 pg (27.0-31.2); Mean Corpuscular Volume 109.8 fl (80-94); Mean Platelet Volume 10.2 fl (7.4-10.4); Monocytes # 0.2 K/mm3 (0.1-1.0); Neutrophils # 1.7 K/mm3 (1.8-7.8); Neutrophils % 45.5 % (37.0-80.0); Platelet Count 206 K/mm3 (142-424); Red Blood Count 3.94 M/mm3 (4.60-6.20); Red Cell Distribution Width 18.1 % (11.5-17.5); White Blood Count 3.7 K/mm3 (4.8-10.8)
[2017-10-01 09:21] LABS: Anion Gap 9.7 mEq/L (5-15); Blood Urea Nitrogen 20 mg/dL (7-18); Calcium 9.3 mg/dL (8.5-10.1); Carbon Dioxide 31 mmol/L (21.0-32.0); Chloride 107 mmol/L (98-107); Creatinine Clearance Estimated 85 mL/min (0-300); Creatinine,Serum 0.92 mg/dL (0.70-1.30); Estimated Glomerular Filt Rate 81 ml/min (>60); GFR (African American) 98 ML/MIN (>60); Glucose 120 mg/dL (74-106); Potassium 3.7 mmoL/L (3.5-5.1); Sodium 144 mmol/L (136-145)
== END 2017-10-01 09:30 | disposition home or self-care (01) ==
LOC: INF 08:37
PROVIDERS: Family Provider Family Medicine; PCP Family Medicine; Visit Provider Internal Medicine
DX: Z45.2 Encounter for adjustment and management of vascular access device (principal); C92.00 Acute myeloblastic leukemia, not having achieved remission
CPT/HCPCS: 80048; 85025

== ENCOUNTER 2017-10-09 09:09 | Outpatient (CLI) | payer MEDICARE, OTHER, SELFPAY ==
[2017-10-09 09:02] VITALS: BMI 62.6
[2017-10-09 09:48] LABS: Basophils % 0.5 % (0.1-2.0); Eosinophils # 0.2 K/mm3 (0.0-0.4); Eosinophils % 4.3 % (0.1-12.0); Hematocrit 42.1 % (42.0-52.0); Hemoglobin 13.6 g/dL (14.1-18.0); Lymphocytes # 1.6 K/mm3 (0.7-4.5); Lymphocytes % 32.1 K/mm3 (10-50); Mean Corpuscular HGB Conc 32.4 g/dL (31.8-35.4); Mean Corpuscular Hemoglobin 35.5 pg (27.0-31.2); Mean Corpuscular Volume 109.5 fl (80-94); Mean Platelet Volume 8.8 fl (7.4-10.4); Monocytes # 0.3 K/mm3 (0.1-1.0); Monocytes % 5.8 % (1.7-9.3); Neutrophils # 2.8 K/mm3 (1.8-7.8); Neutrophils % 57.3 % (37.0-80.0); Platelet Count 154 K/mm3 (142-424); Red Blood Count 3.84 M/mm3 (4.60-6.20); Red Cell Distribution Width 18.3 % (11.5-17.5); White Blood Count 4.9 K/mm3 (4.8-10.8)
== END 2017-10-09 10:00 | disposition home or self-care (01) ==
LOC: INF 09:09
PROVIDERS: Family Provider Family Medicine; PCP Family Medicine; Visit Provider Internal Medicine
DX: C92.00 Acute myeloblastic leukemia, not having achieved remission (principal)
CPT/HCPCS: 85025

== ENCOUNTER 2017-10-16 09:05 | Outpatient (CLI) | payer MEDICARE, OTHER, SELFPAY ==
[2017-10-16 09:21] VITALS: BMI 28.4
[2017-10-16 09:29] LABS: Basophils % 0.6 % (0.1-2.0); Eosinophils # 0.1 K/mm3 (0.0-0.4); Eosinophils % 3.1 % (0.1-12.0); Hematocrit 43.1 % (42.0-52.0); Lymphocytes # 1.7 K/mm3 (0.7-4.5); Lymphocytes % 59.7 K/mm3 (10-50); Mean Corpuscular HGB Conc 32.4 g/dL (31.8-35.4); Mean Corpuscular Hemoglobin 35.4 pg (27.0-31.2); Mean Corpuscular Volume 109.2 fl (80-94); Mean Platelet Volume 9.2 fl (7.4-10.4); Monocytes # 0.2 K/mm3 (0.1-1.0); Monocytes % 7.4 % (1.7-9.3); Neutrophils # 0.8 K/mm3 (1.8-7.8); Neutrophils % 29.1 % (37.0-80.0); Platelet Count 153 K/mm3 (142-424); Red Blood Count 3.95 M/mm3 (4.60-6.20); Red Cell Distribution Width 17.5 % (11.5-17.5); White Blood Count 2.8 K/mm3 (4.8-10.8)
[2017-10-16 09:31] LABS: MANUAL DIFFERENTIAL MANUAL DIFFERENTIAL (MANUAL DIFF)
[2017-10-16 10:29] LABS: Eosinophils % 3 % (0-3); Lymphocytes % 44 % (10-50); Monocytes % 6 % (2-9); Neutrophils % 32 % (42-76); Total Cells Counted 100
[2017-10-16 10:31] LABS: Platelet Estimate Normal
[2017-10-16 10:32] LABS: Macrocytosis 2+
== END 2017-10-16 09:40 | disposition home or self-care (01) ==
LOC: INF 09:05
PROVIDERS: Family Provider Family Medicine; PCP Family Medicine; Visit Provider Internal Medicine
DX: C92.00 Acute myeloblastic leukemia, not having achieved remission (principal)
CPT/HCPCS: 85007; 85025

== ENCOUNTER 2017-10-21 08:26 | Outpatient (CLI) | payer MEDICARE, OTHER, SELFPAY ==
[2017-10-21 08:28] VITALS: BMI 27.6
[2017-10-21 08:52] LABS: Basophils # 0.1 K/mm3 (0-0.2); Basophils % 1.5 % (0.1-2.0); Eosinophils # 0.1 K/mm3 (0.0-0.4); Eosinophils % 2.7 % (0.1-12.0); Hematocrit 43.7 % (42.0-52.0); Hemoglobin 14.2 g/dL (14.1-18.0); Lymphocytes # 1.7 K/mm3 (0.7-4.5); Mean Corpuscular HGB Conc 32.4 g/dL (31.8-35.4); Mean Corpuscular Hemoglobin 35.4 pg (27.0-31.2); Mean Platelet Volume 8.8 fl (7.4-10.4); Monocytes # 0.2 K/mm3 (0.1-1.0); Monocytes % 6.5 % (1.7-9.3); Neutrophils # 1.4 K/mm3 (1.8-7.8); Neutrophils % 39.3 % (37.0-80.0); Platelet Count 164 K/mm3 (142-424); Red Blood Count 4.01 M/mm3 (4.60-6.20); Red Cell Distribution Width 16.8 % (11.5-17.5); White Blood Count 3.5 K/mm3 (4.8-10.8)
[2017-10-21 08:54] LABS: MANUAL DIFFERENTIAL MANUAL DIFFERENTIAL (MANUAL DIFF)
[2017-10-21 09:06] LABS: Alanine Aminotransferase 27 U/L (12-78); Albumin Level 3.3 gm/dL (3.4-5.0); Albumin/Globulin Ratio 1.1 (1.1-1.8); Alkaline Phosphatase 38 U/L (46-116); Anion Gap 7.6 mEq/L (5-15); Aspartate Amino Transferase 19 U/L (15-37); Bilirubin,Total 0.3 mg/dL (0.2-1.0); Blood Urea Nitrogen 14 mg/dL (7-18); Calcium 9.4 mg/dL (8.5-10.1); Carbon Dioxide 32 mmol/L (21.0-32.0); Chloride 108 mmol/L (98-107); Creatinine Clearance Estimated 83 mL/min (0-300); Creatinine,Serum 0.89 mg/dL (0.70-1.30); Estimated Glomerular Filt Rate 84 ml/min (>60); GFR (African American) 102 ML/MIN (>60); Globulin 3.1 gm/dl (1.3-3.2); Glucose 138 mg/dL (74-106); Potassium 3.6 mmoL/L (3.5-5.1); Sodium 144 mmol/L (136-145); Total Protein,Serum 6.4 gm/dL (6.4-8.2)
[2017-10-21 09:11] LABS: Eosinophils % 1 % (0-3); Lymphocytes % 33 % (10-50); Monocytes % 8 % (2-9); Neutrophils % 47 % (42-76); Platelet Estimate Normal; RBC Morphology Normal; Total Cells Counted 100
[2017-10-21 09:12] LABS: Macrocytosis 2+
[2017-10-21 11:33] VITALS: BP 154/82; PULSE 50; RESP 20; TEMP 36.4; O2SAT 97
[2017-10-21 12:03] VITALS: BP 150/67; PULSE 56; RESP 20; O2SAT 97
[2017-10-21 12:33] VITALS: BP 155/80; PULSE 54; RESP 20; O2SAT 96
[2017-10-21 12:45] VITALS: BP 151/79; PULSE 51; RESP 20; O2SAT 97
== END 2017-10-21 12:50 | disposition home or self-care (01) ==
LOC: INF 08:26
PROVIDERS: Family Provider Family Medicine; PCP Family Medicine; Visit Provider Internal Medicine
DX: Z51.11 Encounter for antineoplastic chemotherapy (principal); C92.00 Acute myeloblastic leukemia, not having achieved remission
CPT/HCPCS: 80053; 85007; 85025; 96413; J0894

== ENCOUNTER 2017-10-22 08:35 | Outpatient (CLI) | payer MEDICARE, OTHER, SELFPAY ==
[2017-10-22 08:52] VITALS: BMI 28.8
[2017-10-22 09:02] LABS: Basophils # 0.1 K/mm3 (0-0.2); Basophils % 1.7 % (0.1-2.0); Eosinophils # 0.1 K/mm3 (0.0-0.4); Eosinophils % 2.7 % (0.1-12.0); Hematocrit 43.3 % (42.0-52.0); Hemoglobin 14.6 g/dL (14.1-18.0); Lymphocytes # 1.9 K/mm3 (0.7-4.5); Lymphocytes % 53.3 K/mm3 (10-50); Mean Corpuscular HGB Conc 33.7 g/dL (31.8-35.4); Mean Corpuscular Hemoglobin 36.9 pg (27.0-31.2); Mean Corpuscular Volume 109.4 fl (80-94); Mean Platelet Volume 8.8 fl (7.4-10.4); Monocytes # 0.2 K/mm3 (0.1-1.0); Monocytes % 6.4 % (1.7-9.3); Neutrophils # 1.3 K/mm3 (1.8-7.8); Neutrophils % 35.9 % (37.0-80.0); Platelet Count 190 K/mm3 (142-424); Red Blood Count 3.96 M/mm3 (4.60-6.20); Red Cell Distribution Width 16.9 % (11.5-17.5); White Blood Count 3.5 K/mm3 (4.8-10.8)
[2017-10-22 09:04] LABS: MANUAL DIFFERENTIAL MANUAL DIFFERENTIAL (MANUAL DIFF)
[2017-10-22 09:38] VITALS: BP 151/79; PULSE 52; RESP 18; TEMP 36.6; O2SAT 97
[2017-10-22 09:43] LABS: Anisocytosis 2+; Eosinophils % 6 % (0-3); Lymphocytes % 36 % (10-50); Macrocytosis 2+; Monocytes % 1 % (2-9); Neutrophils % 47 % (42-76); Total Cells Counted 100
[2017-10-22 09:45] LABS: Platelet Estimate Normal
[2017-10-22 10:08] VITALS: BP 164/72; PULSE 54; RESP 18; O2SAT 97
[2017-10-22 10:38] VITALS: BP 161/79; PULSE 52; RESP 18; O2SAT 97
[2017-10-22 10:55] VITALS: BP 170/79; PULSE 50; RESP 18; O2SAT 98
== END 2017-10-22 11:00 | disposition home or self-care (01) ==
LOC: INF 08:40
PROVIDERS: Family Provider Family Medicine; PCP Family Medicine; Visit Provider Internal Medicine
DX: Z51.11 Encounter for antineoplastic chemotherapy (principal); C92.00 Acute myeloblastic leukemia, not having achieved remission
CPT/HCPCS: 85007; 85025; 96413; J0894; J1642

== ENCOUNTER 2017-10-23 08:45 | Outpatient (CLI) | payer MEDICARE, OTHER, SELFPAY ==
[2017-10-23 08:55] VITALS: BMI 28.8
[2017-10-23 09:01] LABS: Basophils % 0.8 % (0.1-2.0); Eosinophils # 0.1 K/mm3 (0.0-0.4); Eosinophils % 2.6 % (0.1-12.0); Hematocrit 44.7 % (42.0-52.0); Hemoglobin 14.8 g/dL (14.1-18.0); Lymphocytes # 1.6 K/mm3 (0.7-4.5); Lymphocytes % 46.6 K/mm3 (10-50); Mean Corpuscular Hemoglobin 36.4 pg (27.0-31.2); Mean Corpuscular Volume 110.2 fl (80-94); Mean Platelet Volume 8.8 fl (7.4-10.4); Monocytes # 0.2 K/mm3 (0.1-1.0); Monocytes % 5.7 % (1.7-9.3); Neutrophils # 1.5 K/mm3 (1.8-7.8); Neutrophils % 44.3 % (37.0-80.0); Platelet Count 155 K/mm3 (142-424); Red Blood Count 4.06 M/mm3 (4.60-6.20); Red Cell Distribution Width 16.8 % (11.5-17.5); White Blood Count 3.4 K/mm3 (4.8-10.8)
[2017-10-23 10:01] VITALS: BP 155/71; PULSE 57; RESP 18; TEMP 36.3; O2SAT 97
[2017-10-23 10:31] VITALS: BP 158/74; PULSE 59; RESP 18; O2SAT 97
[2017-10-23 11:01] VITALS: BP 164/72; PULSE 57; RESP 18; O2SAT 96
[2017-10-23 11:20] VITALS: BP 177/76; PULSE 59; RESP 18; O2SAT 97
== END 2017-10-23 11:30 | disposition home or self-care (01) ==
LOC: INF 08:51
PROVIDERS: Family Provider Family Medicine; PCP Family Medicine; Visit Provider Internal Medicine
DX: Z51.11 Encounter for antineoplastic chemotherapy (principal); C92.00 Acute myeloblastic leukemia, not having achieved remission
CPT/HCPCS: 85025; 96413; J0894; J1642

== ENCOUNTER 2017-10-24 08:30 | Outpatient (CLI) | payer MEDICARE, OTHER, SELFPAY ==
[2017-10-24 08:44] VITALS: BMI 28.8
[2017-10-24 08:52] LABS: Basophils % 0.9 % (0.1-2.0); Eosinophils # 0.1 K/mm3 (0.0-0.4); Eosinophils % 2.9 % (0.1-12.0); Hematocrit 44.9 % (42.0-52.0); Hemoglobin 14.6 g/dL (14.1-18.0); Lymphocytes # 1.8 K/mm3 (0.7-4.5); Mean Corpuscular HGB Conc 32.5 g/dL (31.8-35.4); Mean Corpuscular Hemoglobin 35.3 pg (27.0-31.2); Mean Corpuscular Volume 108.7 fl (80-94); Mean Platelet Volume 9.2 fl (7.4-10.4); Monocytes # 0.2 K/mm3 (0.1-1.0); Monocytes % 4.7 % (1.7-9.3); Neutrophils # 1.6 K/mm3 (1.8-7.8); Neutrophils % 43.6 % (37.0-80.0); Platelet Count 200 K/mm3 (142-424); Red Blood Count 4.13 M/mm3 (4.60-6.20); Red Cell Distribution Width 16.6 % (11.5-17.5); White Blood Count 3.7 K/mm3 (4.8-10.8)
[2017-10-24 09:31] VITALS: BP 134/76; PULSE 56; RESP 18; TEMP 36.3; O2SAT 98
[2017-10-24 10:01] VITALS: BP 149/71; PULSE 59; RESP 18; O2SAT 98
[2017-10-24 10:30] VITALS: BP 152/69; PULSE 60; RESP 18; O2SAT 97
[2017-10-24 10:45] VITALS: BP 179/77; PULSE 57; RESP 18; O2SAT 97
== END 2017-10-24 10:50 | disposition home or self-care (01) ==
LOC: INF 08:53
PROVIDERS: Family Provider Family Medicine; PCP Family Medicine; Visit Provider Internal Medicine
DX: Z51.11 Encounter for antineoplastic chemotherapy (principal); C92.00 Acute myeloblastic leukemia, not having achieved remission
CPT/HCPCS: 85025; 96413; J0894; J1642

== ENCOUNTER 2017-10-25 08:30 | Outpatient (CLI) | payer MEDICARE, OTHER, SELFPAY ==
[2017-10-25 08:37] VITALS: BMI 28.8
[2017-10-25 08:57] LABS: Basophils # 0.1 K/mm3 (0-0.2); Basophils % 1.3 % (0.1-2.0); Eosinophils # 0.1 K/mm3 (0.0-0.4); Eosinophils % 3.5 % (0.1-12.0); Hematocrit 45.1 % (42.0-52.0); Hemoglobin 14.7 g/dL (14.1-18.0); Lymphocytes # 1.6 K/mm3 (0.7-4.5); Lymphocytes % 44.5 K/mm3 (10-50); Mean Corpuscular HGB Conc 32.5 g/dL (31.8-35.4); Mean Corpuscular Hemoglobin 35.7 pg (27.0-31.2); Mean Corpuscular Volume 109.7 fl (80-94); Monocytes # 0.2 K/mm3 (0.1-1.0); Monocytes % 6.1 % (1.7-9.3); Neutrophils # 1.6 K/mm3 (1.8-7.8); Neutrophils % 44.6 % (37.0-80.0); Platelet Count 216 K/mm3 (142-424); Red Blood Count 4.11 M/mm3 (4.60-6.20); Red Cell Distribution Width 16.6 % (11.5-17.5); White Blood Count 3.5 K/mm3 (4.8-10.8)
[2017-10-25 10:15] VITALS: BP 186/84; PULSE 56; RESP 18; TEMP 36.8; O2SAT 94
[2017-10-25 10:30] VITALS: BP 162/79; PULSE 54; RESP 18
[2017-10-25 10:45] VITALS: BP 154/78; PULSE 49; RESP 18
[2017-10-25 11:00] VITALS: BP 165/83; PULSE 48; RESP 18
[2017-10-25 11:15] VITALS: BP 168/89; PULSE 55; RESP 18
== END 2017-10-25 11:55 | disposition home or self-care (01) ==
LOC: INF 08:34
PROVIDERS: Family Provider Family Medicine; PCP Family Medicine; Visit Provider Internal Medicine
DX: Z51.11 Encounter for antineoplastic chemotherapy (principal); C92.00 Acute myeloblastic leukemia, not having achieved remission
CPT/HCPCS: 85025; 96413; J0894

== ENCOUNTER 2017-10-30 09:59 | Outpatient (CLI) | payer MEDICARE, OTHER, SELFPAY ==
[2017-10-30 10:01] VITALS: BMI 28.8
[2017-10-30 10:15] VITALS: BP 143/72; PULSE 64; RESP 18; TEMP 36.6; O2SAT 97
[2017-10-30 10:23] LABS: Basophils % 0.4 % (0.1-2.0); Eosinophils # 0.2 K/mm3 (0.0-0.4); Hematocrit 44.5 % (42.0-52.0); Hemoglobin 14.7 g/dL (14.1-18.0); Lymphocytes # 1.8 K/mm3 (0.7-4.5); Mean Corpuscular Hemoglobin 36.2 pg (27.0-31.2); Mean Corpuscular Volume 109.7 fl (80-94); Mean Platelet Volume 9.3 fl (7.4-10.4); Monocytes # 0.3 K/mm3 (0.1-1.0); Monocytes % 4.3 % (1.7-9.3); Neutrophils # 3.7 K/mm3 (1.8-7.8); Neutrophils % 62.3 % (37.0-80.0); Platelet Count 187 K/mm3 (142-424); Red Blood Count 4.05 M/mm3 (4.60-6.20); Red Cell Distribution Width 16.3 % (11.5-17.5)
== END 2017-10-30 10:50 | disposition home or self-care (01) ==
LOC: INF 09:59
PROVIDERS: Family Provider Family Medicine; PCP Family Medicine; Visit Provider Internal Medicine
DX: Z45.2 Encounter for adjustment and management of vascular access device (principal); C92.00 Acute myeloblastic leukemia, not having achieved remission
CPT/HCPCS: 85025; J1642

== ENCOUNTER 2017-11-07 08:05 | Outpatient (CLI) | payer MEDICARE, OTHER, SELFPAY ==
[2017-11-07 08:15] VITALS: BP 145/80; PULSE 81; RESP 20; TEMP 36.6; O2SAT 98
[2017-11-07 08:17] VITALS: BMI 28.5
[2017-11-07 09:19] LABS: Basophils % 0.4 % (0.1-2.0); Eosinophils # 0.2 K/mm3 (0.0-0.4); Eosinophils % 3.5 % (0.1-12.0); Hematocrit 45.6 % (42.0-52.0); Hemoglobin 15.2 g/dL (14.1-18.0); Lymphocytes # 1.8 K/mm3 (0.7-4.5); Lymphocytes % 35.5 K/mm3 (10-50); Mean Corpuscular HGB Conc 33.3 g/dL (31.8-35.4); Mean Corpuscular Hemoglobin 35.9 pg (27.0-31.2); Mean Corpuscular Volume 107.9 fl (80-94); Mean Platelet Volume 9.3 fl (7.4-10.4); Monocytes # 0.3 K/mm3 (0.1-1.0); Monocytes % 4.8 % (1.7-9.3); Neutrophils # 2.9 K/mm3 (1.8-7.8); Neutrophils % 55.7 % (37.0-80.0); Platelet Count 134 K/mm3 (142-424); Red Blood Count 4.22 M/mm3 (4.60-6.20); Red Cell Distribution Width 15.9 % (11.5-17.5); White Blood Count 5.2 K/mm3 (4.8-10.8)
== END 2017-11-07 09:20 | disposition home or self-care (01) ==
LOC: INF 08:15
PROVIDERS: Family Provider Family Medicine; PCP Family Medicine; Visit Provider Internal Medicine
DX: C92.00 Acute myeloblastic leukemia, not having achieved remission (principal)
CPT/HCPCS: 85025; J1642

== ENCOUNTER 2017-11-13 08:40 | Outpatient (CLI) | payer MEDICARE, OTHER, SELFPAY ==
[2017-11-13 08:40] VITALS: BMI 29.0
[2017-11-13 08:50] VITALS: BP 150/77; PULSE 55; RESP 18; TEMP 36.6; O2SAT 97
[2017-11-13 09:02] LABS: Basophils % 0.8 % (0.1-2.0); Eosinophils # 0.1 K/mm3 (0.0-0.4); Eosinophils % 2.8 % (0.1-12.0); Hematocrit 45.6 % (42.0-52.0); Hemoglobin 15.1 g/dL (14.1-18.0); Lymphocytes # 1.8 K/mm3 (0.7-4.5); Lymphocytes % 54.3 K/mm3 (10-50); Mean Corpuscular HGB Conc 33.1 g/dL (31.8-35.4); Mean Corpuscular Hemoglobin 35.8 pg (27.0-31.2); Mean Platelet Volume 9.5 fl (7.4-10.4); Monocytes # 0.2 K/mm3 (0.1-1.0); Monocytes % 5.4 % (1.7-9.3); Neutrophils # 1.2 K/mm3 (1.8-7.8); Neutrophils % 36.9 % (37.0-80.0); Platelet Count 121 K/mm3 (142-424); Red Blood Count 4.22 M/mm3 (4.60-6.20); Red Cell Distribution Width 15.8 % (11.5-17.5); White Blood Count 3.3 K/mm3 (4.8-10.8)
[2017-11-13 09:06] LABS: MANUAL DIFFERENTIAL MANUAL DIFFERENTIAL (MANUAL DIFF)
[2017-11-13 09:23] LABS: Eosinophils % 1 % (0-3); Lymphocytes % 46 % (10-50); Monocytes % 7 % (2-9); Neutrophils % 37 % (42-76); Platelet Estimate Slight Decrease; Total Cells Counted 100
[2017-11-13 09:24] LABS: Macrocytosis 2+
== END 2017-11-13 09:27 | disposition home or self-care (01) ==
LOC: INF 08:41
PROVIDERS: Internal Medicine Medical Oncology; PCP Family Medicine; Visit Provider Internal Medicine
DX: C92.00 Acute myeloblastic leukemia, not having achieved remission (principal)
CPT/HCPCS: 85007; 85025; J1642

== ENCOUNTER 2017-11-19 08:50 | Outpatient (CLI) | payer MEDICARE, OTHER, SELFPAY ==
[2017-11-19 09:06] VITALS: BMI 29.0
[2017-11-19 09:16] LABS: Basophils % 0.9 % (0.1-2.0); Eosinophils # 0.1 K/mm3 (0.0-0.4); Hematocrit 47.5 % (42.0-52.0); Hemoglobin 15.6 g/dL (14.1-18.0); Lymphocytes # 1.9 K/mm3 (0.7-4.5); Lymphocytes % 46.8 K/mm3 (10-50); Mean Corpuscular HGB Conc 32.7 g/dL (31.8-35.4); Mean Corpuscular Hemoglobin 35.4 pg (27.0-31.2); Mean Corpuscular Volume 108.2 fl (80-94); Monocytes # 0.3 K/mm3 (0.1-1.0); Monocytes % 6.7 % (1.7-9.3); Neutrophils # 1.7 K/mm3 (1.8-7.8); Neutrophils % 43.5 % (37.0-80.0); Platelet Count 193 K/mm3 (142-424); Red Blood Count 4.39 M/mm3 (4.60-6.20); Red Cell Distribution Width 15.5 % (11.5-17.5)
[2017-11-19 10:00] VITALS: BP 147/75; PULSE 57; RESP 18; TEMP 36.8; O2SAT 98
[2017-11-19 10:30] VITALS: BP 142/79; PULSE 59; RESP 18; O2SAT 97
[2017-11-19 11:00] VITALS: BP 141/76; PULSE 54; RESP 18; O2SAT 98
[2017-11-19 11:25] VITALS: BP 148/80; PULSE 50; RESP 18; O2SAT 98
== END 2017-11-19 11:30 | disposition home or self-care (01) ==
LOC: INF 08:50
PROVIDERS: Family Provider Family Medicine; PCP Family Medicine; Visit Provider Internal Medicine
DX: Z51.11 Encounter for antineoplastic chemotherapy (principal); C92.00 Acute myeloblastic leukemia, not having achieved remission
CPT/HCPCS: 85025; 96413; J0894; J1642

== ENCOUNTER 2017-11-20 08:35 | Outpatient (CLI) | payer MEDICARE, OTHER, SELFPAY ==
[2017-11-20 08:38] VITALS: BMI 29.0
[2017-11-20 08:50] LABS: Basophils # 0.1 K/mm3 (0-0.2); Basophils % 1.1 % (0.1-2.0); Eosinophils # 0.1 K/mm3 (0.0-0.4); Hematocrit 48.6 % (42.0-52.0); Hemoglobin 15.8 g/dL (14.1-18.0); Lymphocytes # 2.3 K/mm3 (0.7-4.5); Lymphocytes % 50.4 K/mm3 (10-50); Mean Corpuscular HGB Conc 32.5 g/dL (31.8-35.4); Mean Corpuscular Hemoglobin 35.5 pg (27.0-31.2); Mean Corpuscular Volume 109.3 fl (80-94); Mean Platelet Volume 8.9 fl (7.4-10.4); Monocytes # 0.3 K/mm3 (0.1-1.0); Monocytes % 6.5 % (1.7-9.3); Neutrophils # 1.8 K/mm3 (1.8-7.8); Platelet Count 207 K/mm3 (142-424); Red Blood Count 4.45 M/mm3 (4.60-6.20); Red Cell Distribution Width 15.5 % (11.5-17.5); White Blood Count 4.5 K/mm3 (4.8-10.8)
[2017-11-20 08:57] LABS: MANUAL DIFFERENTIAL MANUAL DIFFERENTIAL (MANUAL DIFF)
[2017-11-20 09:26] VITALS: BP 156/78; PULSE 54; RESP 18; TEMP 36.8; O2SAT 95
[2017-11-20 09:28] LABS: Eosinophils % 2 % (0-3); Lymphocytes % 42 % (10-50); Monocytes % 5 % (2-9); Neutrophils % 47 % (42-76); Platelet Estimate Normal; Total Cells Counted 100
[2017-11-20 09:29] LABS: Macrocytosis 2+
[2017-11-20 09:56] VITALS: BP 154/79; PULSE 59; RESP 18; O2SAT 96
[2017-11-20 10:26] VITALS: BP 151/81; PULSE 60; RESP 18; O2SAT 95
[2017-11-20 10:55] VITALS: BP 156/79; PULSE 58; RESP 18; O2SAT 96
== END 2017-11-20 11:00 | disposition home or self-care (01) ==
LOC: INF 08:38
PROVIDERS: PCP Family Medicine; Visit Provider Internal Medicine Medical Oncology
DX: Z51.11 Encounter for antineoplastic chemotherapy (principal); C92.00 Acute myeloblastic leukemia, not having achieved remission
CPT/HCPCS: 85007; 85025; 96413; J0894

== ENCOUNTER 2017-11-21 08:35 | Outpatient (CLI) | payer MEDICARE, OTHER, SELFPAY ==
[2017-11-21 08:44] VITALS: BMI 29.0
[2017-11-21 09:03] LABS: Basophils % 0.9 % (0.1-2.0); Eosinophils # 0.1 K/mm3 (0.0-0.4); Eosinophils % 1.8 % (0.1-12.0); Hematocrit 47.5 % (42.0-52.0); Hemoglobin 15.3 g/dL (14.1-18.0); Lymphocytes # 1.8 K/mm3 (0.7-4.5); Lymphocytes % 47.8 K/mm3 (10-50); Mean Corpuscular HGB Conc 32.1 g/dL (31.8-35.4); Mean Corpuscular Hemoglobin 34.9 pg (27.0-31.2); Mean Corpuscular Volume 108.5 fl (80-94); Monocytes # 0.2 K/mm3 (0.1-1.0); Monocytes % 6.1 % (1.7-9.3); Neutrophils # 1.7 K/mm3 (1.8-7.8); Neutrophils % 43.3 % (37.0-80.0); Platelet Count 212 K/mm3 (142-424); Red Blood Count 4.38 M/mm3 (4.60-6.20); Red Cell Distribution Width 15.3 % (11.5-17.5); White Blood Count 3.9 K/mm3 (4.8-10.8)
[2017-11-21 09:50] VITALS: BP 145/87; PULSE 54; RESP 18; O2SAT 97
[2017-11-21 10:05] VITALS: BP 152/74; PULSE 52; RESP 18
[2017-11-21 10:20] VITALS: BP 138/80; PULSE 53; RESP 18
[2017-11-21 10:35] VITALS: BP 149/73; PULSE 50; RESP 18
[2017-11-21 10:50] VITALS: BP 132/80; PULSE 50; RESP 16
[2017-11-21 11:00] VITALS: BP 142/76; PULSE 50; RESP 16
== END 2017-11-21 11:20 | disposition home or self-care (01) ==
LOC: INF 08:42
PROVIDERS: Family Provider Family Medicine; PCP Family Medicine; Visit Provider Internal Medicine Medical Oncology
DX: Z51.11 Encounter for antineoplastic chemotherapy (principal); C92.00 Acute myeloblastic leukemia, not having achieved remission
CPT/HCPCS: 85025; 96413; J0894

== ENCOUNTER 2017-11-22 08:35 | Outpatient (CLI) | payer MEDICARE, OTHER, SELFPAY ==
[2017-11-22 08:43] VITALS: BMI 29.0
[2017-11-22 09:08] LABS: Basophils % 0.9 % (0.1-2.0); Eosinophils # 0.1 K/mm3 (0.0-0.4); Eosinophils % 1.6 % (0.1-12.0); Hematocrit 47.3 % (42.0-52.0); Hemoglobin 15.6 g/dL (14.1-18.0); Lymphocytes # 1.8 K/mm3 (0.7-4.5); Lymphocytes % 42.2 K/mm3 (10-50); Mean Corpuscular Hemoglobin 35.6 pg (27.0-31.2); Mean Corpuscular Volume 107.9 fl (80-94); Mean Platelet Volume 9.2 fl (7.4-10.4); Monocytes # 0.2 K/mm3 (0.1-1.0); Monocytes % 4.4 % (1.7-9.3); Neutrophils # 2.2 K/mm3 (1.8-7.8); Neutrophils % 50.8 % (37.0-80.0); Platelet Count 213 K/mm3 (142-424); Red Blood Count 4.38 M/mm3 (4.60-6.20); Red Cell Distribution Width 15.3 % (11.5-17.5); White Blood Count 4.4 K/mm3 (4.8-10.8)
[2017-11-22 10:10] VITALS: BP 151/68; PULSE 50; RESP 18; TEMP 36.4; O2SAT 95
[2017-11-22 10:25] VITALS: BP 145/73; PULSE 51; RESP 16
[2017-11-22 10:40] VITALS: BP 143/81; PULSE 51; RESP 16
[2017-11-22 10:55] VITALS: BP 146/81; PULSE 48; RESP 16
[2017-11-22 11:10] VITALS: BP 148/81; PULSE 48; RESP 16
== END 2017-11-22 11:30 | disposition home or self-care (01) ==
LOC: INF 08:37
PROVIDERS: Family Provider Family Medicine; PCP Family Medicine; Visit Provider Internal Medicine Medical Oncology
DX: Z51.11 Encounter for antineoplastic chemotherapy (principal); C92.00 Acute myeloblastic leukemia, not having achieved remission
CPT/HCPCS: 85025; 96413; J0894

== ENCOUNTER 2017-11-23 08:46 | Outpatient (CLI) | payer MEDICARE, OTHER, SELFPAY ==
[2017-11-23 08:46] VITALS: BMI 29.0
[2017-11-23 09:05] LABS: Basophils % 0.8 % (0.1-2.0); Eosinophils # 0.1 K/mm3 (0.0-0.4); Hematocrit 46.7 % (42.0-52.0); Hemoglobin 15.2 g/dL (14.1-18.0); Lymphocytes # 1.5 K/mm3 (0.7-4.5); Lymphocytes % 39.2 K/mm3 (10-50); Mean Corpuscular HGB Conc 32.5 g/dL (31.8-35.4); Mean Corpuscular Hemoglobin 34.9 pg (27.0-31.2); Mean Corpuscular Volume 107.3 fl (80-94); Mean Platelet Volume 9.2 fl (7.4-10.4); Monocytes # 0.2 K/mm3 (0.1-1.0); Monocytes % 5.6 % (1.7-9.3); Neutrophils % 52.4 % (37.0-80.0); Platelet Count 219 K/mm3 (142-424); Red Blood Count 4.35 M/mm3 (4.60-6.20); Red Cell Distribution Width 15.1 % (11.5-17.5); White Blood Count 3.8 K/mm3 (4.8-10.8)
--- NOTE | 2017-11-23 09:25 | PC.NURSE ---
PREMEDS AT 3750
[2017-11-23 10:00] VITALS: BP 138/68; PULSE 68; RESP 20; TEMP 36.9; O2SAT 96
[2017-11-23 10:30] VITALS: BP 142/86; PULSE 68; RESP 20; TEMP 36.9; O2SAT 96
[2017-11-23 11:30] VITALS: BP 136/70; PULSE 60; RESP 20; TEMP 36.9; O2SAT 96
== END 2017-11-23 11:15 | disposition home or self-care (01) ==
LOC: INF 08:46
PROVIDERS: Family Provider Family Medicine; PCP Family Medicine; Visit Provider Internal Medicine Medical Oncology
DX: Z51.11 Encounter for antineoplastic chemotherapy (principal); C92.00 Acute myeloblastic leukemia, not having achieved remission
CPT/HCPCS: 85025; 96413; J0894

== ENCOUNTER 2017-11-26 09:02 | Outpatient (CLI) | payer MEDICARE, OTHER, SELFPAY ==
[2017-11-26 09:15] VITALS: BP 122/74; PULSE 66; RESP 20; TEMP 36.9; O2SAT 96
[2017-11-26 09:22] VITALS: BMI 29.0
[2017-11-26 09:33] LABS: Basophils % 0.8 % (0.1-2.0); Eosinophils # 0.1 K/mm3 (0.0-0.4); Eosinophils % 2.2 % (0.1-12.0); Hematocrit 47.1 % (42.0-52.0); Hemoglobin 15.7 g/dL (14.1-18.0); Mean Corpuscular HGB Conc 33.2 g/dL (31.8-35.4); Mean Corpuscular Hemoglobin 35.5 pg (27.0-31.2); Mean Corpuscular Volume 106.9 fl (80-94); Mean Platelet Volume 8.9 fl (7.4-10.4); Monocytes # 0.4 K/mm3 (0.1-1.0); Monocytes % 8.1 % (1.7-9.3); Neutrophils # 2.7 K/mm3 (1.8-7.8); Neutrophils % 51.9 % (37.0-80.0); Platelet Count 207 K/mm3 (142-424); Red Blood Count 4.41 M/mm3 (4.60-6.20); White Blood Count 5.3 K/mm3 (4.8-10.8)
== END 2017-11-26 09:45 | disposition home or self-care (01) ==
LOC: INF 09:02
PROVIDERS: PCP Family Medicine; Visit Provider Internal Medicine Medical Oncology
DX: C92.00 Acute myeloblastic leukemia, not having achieved remission (principal)
CPT/HCPCS: 85025

== ENCOUNTER 2017-12-10 08:46 | Outpatient (CLI) | payer MEDICARE, OTHER, SELFPAY ==
[2017-12-10 08:53] VITALS: BMI 63.8
[2017-12-10 09:10] LABS: Basophils % 0.5 % (0.1-2.0); Eosinophils # 0.1 K/mm3 (0.0-0.4); Eosinophils % 3.8 % (0.1-12.0); Hematocrit 47.3 % (42.0-52.0); Hemoglobin 15.4 g/dL (14.1-18.0); Lymphocytes # 1.8 K/mm3 (0.7-4.5); Lymphocytes % 48.9 K/mm3 (10-50); Mean Corpuscular HGB Conc 32.6 g/dL (31.8-35.4); Mean Corpuscular Hemoglobin 34.9 pg (27.0-31.2); Mean Corpuscular Volume 107.3 fl (80-94); Monocytes # 0.2 K/mm3 (0.1-1.0); Monocytes % 6.4 % (1.7-9.3); Neutrophils # 1.5 K/mm3 (1.8-7.8); Neutrophils % 40.3 % (37.0-80.0); Platelet Count 120 K/mm3 (142-424); Red Blood Count 4.41 M/mm3 (4.60-6.20); Red Cell Distribution Width 15.4 % (11.5-17.5); White Blood Count 3.7 K/mm3 (4.8-10.8)
== END 2017-12-10 09:40 | disposition home or self-care (01) ==
LOC: INF 08:46
PROVIDERS: Family Provider Family Medicine; PCP Family Medicine; Visit Provider Internal Medicine Medical Oncology
DX: C92.00 Acute myeloblastic leukemia, not having achieved remission (principal)
CPT/HCPCS: 85025; J1642

== ENCOUNTER 2017-12-16 08:41 | Outpatient (CLI) | payer MEDICARE, OTHER, SELFPAY ==
[2017-12-16 08:50] VITALS: BMI 29.1
[2017-12-16 09:24] LABS: Basophils % 0.8 % (0.1-2.0); Eosinophils # 0.1 K/mm3 (0.0-0.4); Hematocrit 47.4 % (42.0-52.0); Hemoglobin 15.6 g/dL (14.1-18.0); Lymphocytes # 1.9 K/mm3 (0.7-4.5); Lymphocytes % 53.5 K/mm3 (10-50); Mean Corpuscular Hemoglobin 35.3 pg (27.0-31.2); Mean Corpuscular Volume 106.9 fl (80-94); Monocytes # 0.2 K/mm3 (0.1-1.0); Monocytes % 6.3 % (1.7-9.3); Neutrophils # 1.3 K/mm3 (1.8-7.8); Neutrophils % 37.3 % (37.0-80.0); Platelet Count 157 K/mm3 (142-424); Red Blood Count 4.43 M/mm3 (4.60-6.20); Red Cell Distribution Width 15.2 % (11.5-17.5); White Blood Count 3.5 K/mm3 (4.8-10.8)
[2017-12-16 09:27] LABS: MANUAL DIFFERENTIAL MANUAL DIFFERENTIAL (MANUAL DIFF)
[2017-12-16 09:42] LABS: Eosinophils % 4 % (0-3); Lymphocytes % 40 % (10-50); Macrocytosis 2+; Neutrophils % 38 % (42-76); Platelet Estimate Normal; Total Cells Counted 50
[2017-12-16 10:40] VITALS: BP 148/70; PULSE 68; RESP 20; TEMP 37.1; O2SAT 96
[2017-12-16 11:40] VITALS: BP 138/71; PULSE 68; RESP 20; TEMP 36.9; O2SAT 96
== END 2017-12-16 11:45 | disposition home or self-care (01) ==
LOC: INF 08:41
PROVIDERS: Family Provider Family Medicine; PCP Family Medicine; Visit Provider Internal Medicine Medical Oncology
DX: Z51.11 Encounter for antineoplastic chemotherapy (principal); C92.00 Acute myeloblastic leukemia, not having achieved remission
CPT/HCPCS: 85007; 85025; 96413; J0894; J1642

== ENCOUNTER 2017-12-17 08:30 | Outpatient (CLI) | payer MEDICARE, OTHER, SELFPAY ==
[2017-12-17 08:38] VITALS: BMI 29.1
[2017-12-17 09:05] LABS: Basophils % 1.1 % (0.1-2.0); Eosinophils # 0.1 K/mm3 (0.0-0.4); Eosinophils % 1.7 % (0.1-12.0); Hematocrit 46.2 % (42.0-52.0); Hemoglobin 15.2 g/dL (14.1-18.0); Lymphocytes # 1.8 K/mm3 (0.7-4.5); Lymphocytes % 50.3 K/mm3 (10-50); Mean Corpuscular HGB Conc 32.8 g/dL (31.8-35.4); Mean Corpuscular Hemoglobin 35.2 pg (27.0-31.2); Mean Corpuscular Volume 107.1 fl (80-94); Mean Platelet Volume 8.8 fl (7.4-10.4); Monocytes # 0.2 K/mm3 (0.1-1.0); Monocytes % 5.8 % (1.7-9.3); Neutrophils # 1.5 K/mm3 (1.8-7.8); Neutrophils % 41.1 % (37.0-80.0); Platelet Count 156 K/mm3 (142-424); Red Blood Count 4.31 M/mm3 (4.60-6.20); Red Cell Distribution Width 15.2 % (11.5-17.5); White Blood Count 3.6 K/mm3 (4.8-10.8)
[2017-12-17 09:10] LABS: MANUAL DIFFERENTIAL MANUAL DIFFERENTIAL (MANUAL DIFF)
[2017-12-17 09:36] LABS: Eosinophils % 1 % (0-3); Lymphocytes % 53 % (10-50); Macrocytosis 2+; Monocytes % 3 % (2-9); Neutrophils % 37 % (42-76); Platelet Estimate Normal; Total Cells Counted 100
[2017-12-17 10:00] VITALS: BP 143/72; PULSE 59; RESP 18; TEMP 36.5; O2SAT 94
[2017-12-17 10:15] VITALS: BP 135/67; PULSE 56; RESP 18
[2017-12-17 10:30] VITALS: BP 129/79; PULSE 57; RESP 18
[2017-12-17 10:45] VITALS: BP 139/75; PULSE 53; RESP 18
[2017-12-17 11:00] VITALS: BP 153/76; PULSE 57; RESP 18
[2017-12-17 11:15] VITALS: BP 149/82; PULSE 55; RESP 18
== END 2017-12-17 11:15 | disposition home or self-care (01) ==
LOC: INF 08:37
PROVIDERS: Family Provider Family Medicine; PCP Family Medicine; Visit Provider Internal Medicine Medical Oncology
DX: Z51.11 Encounter for antineoplastic chemotherapy (principal); C92.00 Acute myeloblastic leukemia, not having achieved remission
CPT/HCPCS: 85007; 85025; 96413; 96415; J0894

== ENCOUNTER 2017-12-18 08:40 | Outpatient (CLI) | payer MEDICARE, OTHER, SELFPAY ==
[2017-12-18] VITALS (8 sets, daily range): BP systolic 123–156; BP diastolic 70–93; PULSE 51–58; RESP 18; TEMP 36.2; O2SAT 95; BMI 29.1
[2017-12-18 09:09] LABS: Eosinophils # 0.1 K/mm3 (0.0-0.4); Eosinophils % 1.6 % (0.1-12.0); Hematocrit 47.7 % (42.0-52.0); Hemoglobin 15.5 g/dL (14.1-18.0); Lymphocytes # 1.9 K/mm3 (0.7-4.5); Lymphocytes % 50.2 K/mm3 (10-50); Mean Corpuscular HGB Conc 32.5 g/dL (31.8-35.4); Mean Corpuscular Hemoglobin 34.6 pg (27.0-31.2); Mean Corpuscular Volume 106.5 fl (80-94); Monocytes # 0.2 K/mm3 (0.1-1.0); Monocytes % 5.6 % (1.7-9.3); Neutrophils # 1.6 K/mm3 (1.8-7.8); Neutrophils % 41.7 % (37.0-80.0); Platelet Count 183 K/mm3 (142-424); Red Blood Count 4.48 M/mm3 (4.60-6.20); Red Cell Distribution Width 15.2 % (11.5-17.5); White Blood Count 3.8 K/mm3 (4.8-10.8)
[2017-12-18 09:14] LABS: MANUAL DIFFERENTIAL MANUAL DIFFERENTIAL (MANUAL DIFF)
[2017-12-18 09:32] LABS: Eosinophils % 2 % (0-3); Lymphocytes % 43 % (10-50); Macrocytosis 2+; Monocytes % 3 % (2-9); Neutrophils % 47 % (42-76); Platelet Estimate Normal; Total Cells Counted 100
== END 2017-12-18 11:40 | disposition home or self-care (01) ==
LOC: INF 08:51
PROVIDERS: Family Provider Family Medicine; PCP Family Medicine; Visit Provider Internal Medicine Medical Oncology
DX: Z51.11 Encounter for antineoplastic chemotherapy (principal); C92.00 Acute myeloblastic leukemia, not having achieved remission
CPT/HCPCS: 85007; 85025; 96413; 96415; J0894

== ENCOUNTER 2017-12-19 08:35 | Outpatient (CLI) | payer MEDICARE, OTHER, SELFPAY ==
[2017-12-19 08:45] VITALS: BMI 29.1
[2017-12-19 09:01] LABS: Basophils # 0.1 K/mm3 (0-0.2); Basophils % 1.2 % (0.1-2.0); Eosinophils # 0.1 K/mm3 (0.0-0.4); Eosinophils % 1.3 % (0.1-12.0); Hematocrit 48.6 % (42.0-52.0); Hemoglobin 15.7 g/dL (14.1-18.0); Lymphocytes # 1.8 K/mm3 (0.7-4.5); Mean Corpuscular HGB Conc 32.3 g/dL (31.8-35.4); Mean Corpuscular Hemoglobin 34.5 pg (27.0-31.2); Mean Corpuscular Volume 107.1 fl (80-94); Mean Platelet Volume 8.8 fl (7.4-10.4); Monocytes # 0.2 K/mm3 (0.1-1.0); Monocytes % 4.9 % (1.7-9.3); Neutrophils # 2.1 K/mm3 (1.8-7.8); Neutrophils % 49.6 % (37.0-80.0); Platelet Count 191 K/mm3 (142-424); Red Blood Count 4.54 M/mm3 (4.60-6.20); Red Cell Distribution Width 15.1 % (11.5-17.5); White Blood Count 4.3 K/mm3 (4.8-10.8)
[2017-12-19 09:50] VITALS: BP 141/76; PULSE 56; RESP 18; TEMP 36.5
[2017-12-19 10:05] VITALS: BP 134/82; PULSE 55; RESP 18
[2017-12-19 10:20] VITALS: BP 148/81; PULSE 55; RESP 18
[2017-12-19 10:35] VITALS: BP 176/104; PULSE 51; RESP 18
[2017-12-19 10:50] VITALS: BP 162/80; PULSE 51; RESP 18
== END 2017-12-19 11:15 | disposition home or self-care (01) ==
LOC: INF 08:43
PROVIDERS: Family Provider Family Medicine; PCP Family Medicine; Visit Provider Internal Medicine Medical Oncology
DX: Z51.11 Encounter for antineoplastic chemotherapy (principal); C92.00 Acute myeloblastic leukemia, not having achieved remission
CPT/HCPCS: 85025; 96413; J0894

== ENCOUNTER 2017-12-20 08:42 | Outpatient (CLI) | payer MEDICARE, OTHER, SELFPAY ==
[2017-12-20 08:40] VITALS: BMI 29.1
[2017-12-20 09:16] LABS: Eosinophils # 0.1 K/mm3 (0.0-0.4); Eosinophils % 2.2 % (0.1-12.0); Hematocrit 47.8 % (42.0-52.0); Hemoglobin 15.3 g/dL (14.1-18.0); Lymphocytes # 1.9 K/mm3 (0.7-4.5); Lymphocytes % 45.3 K/mm3 (10-50); Mean Corpuscular Hemoglobin 34.3 pg (27.0-31.2); Mean Corpuscular Volume 107.3 fl (80-94); Mean Platelet Volume 8.9 fl (7.4-10.4); Monocytes # 0.2 K/mm3 (0.1-1.0); Monocytes % 4.6 % (1.7-9.3); Neutrophils # 1.9 K/mm3 (1.8-7.8); Neutrophils % 46.8 % (37.0-80.0); Platelet Count 192 K/mm3 (142-424); Red Blood Count 4.46 M/mm3 (4.60-6.20); Red Cell Distribution Width 15.2 % (11.5-17.5); White Blood Count 4.1 K/mm3 (4.8-10.8)
[2017-12-20 09:30] VITALS: BP 135/74; PULSE 68; RESP 20; TEMP 36.9; O2SAT 95
[2017-12-20 10:00] VITALS: BP 135/70; PULSE 68; RESP 20; TEMP 36.9; O2SAT 96
[2017-12-20 11:40] VITALS: BP 135/70; PULSE 68; RESP 20; TEMP 36.9; O2SAT 95
== END 2017-12-20 11:40 | disposition home or self-care (01) ==
LOC: INF 08:42
PROVIDERS: Family Provider Family Medicine; PCP Family Medicine; Visit Provider Internal Medicine Medical Oncology
DX: Z51.11 Encounter for antineoplastic chemotherapy (principal); C92.00 Acute myeloblastic leukemia, not having achieved remission
CPT/HCPCS: 85025; 96413; J0894

== ENCOUNTER 2017-12-24 12:52 | Outpatient (CLI) | payer MEDICARE, OTHER, SELFPAY ==
[2017-12-24 12:55] VITALS: BMI 29.1
[2017-12-24 13:17] LABS: Basophils % 0.8 % (0.1-2.0); Eosinophils # 0.1 K/mm3 (0.0-0.4); Eosinophils % 1.5 % (0.1-12.0); Hematocrit 47.2 % (42.0-52.0); Hemoglobin 15.1 g/dL (14.1-18.0); Lymphocytes % 38.9 K/mm3 (10-50); Mean Corpuscular Hemoglobin 34.8 pg (27.0-31.2); Mean Corpuscular Volume 108.7 fl (80-94); Mean Platelet Volume 9.3 fl (7.4-10.4); Monocytes # 0.2 K/mm3 (0.1-1.0); Monocytes % 2.9 % (1.7-9.3); Neutrophils # 2.8 K/mm3 (1.8-7.8); Platelet Count 190 K/mm3 (142-424); Red Blood Count 4.34 M/mm3 (4.60-6.20); Red Cell Distribution Width 15.2 % (11.5-17.5); White Blood Count 5.1 K/mm3 (4.8-10.8)
== END 2017-12-24 13:30 | disposition home or self-care (01) ==
LOC: INF 12:52
PROVIDERS: Family Provider Family Medicine; PCP Family Medicine; Visit Provider Internal Medicine Medical Oncology
DX: Z45.2 Encounter for adjustment and management of vascular access device (principal); C92.00 Acute myeloblastic leukemia, not having achieved remission
CPT/HCPCS: 85025; J1642

== ENCOUNTER 2018-01-02 08:50 | Outpatient (CLI) | payer MEDICARE, OTHER, SELFPAY ==
[2018-01-02 08:52] VITALS: BMI 29.1
[2018-01-02 09:13] LABS: Basophils % 0.5 % (0.1-2.0); Eosinophils # 0.2 K/mm3 (0.0-0.4); Eosinophils % 4.5 % (0.1-12.0); Hematocrit 47.2 % (42.0-52.0); Hemoglobin 15.3 g/dL (14.1-18.0); Lymphocytes # 1.8 K/mm3 (0.7-4.5); Lymphocytes % 34.1 K/mm3 (10-50); Mean Corpuscular HGB Conc 32.4 g/dL (31.8-35.4); Mean Corpuscular Hemoglobin 34.9 pg (27.0-31.2); Mean Corpuscular Volume 107.7 fl (80-94); Mean Platelet Volume 8.9 fl (7.4-10.4); Monocytes # 0.3 K/mm3 (0.1-1.0); Monocytes % 6.3 % (1.7-9.3); Neutrophils # 2.9 K/mm3 (1.8-7.8); Neutrophils % 54.6 % (37.0-80.0); Platelet Count 143 K/mm3 (142-424); Red Blood Count 4.38 M/mm3 (4.60-6.20); White Blood Count 5.2 K/mm3 (4.8-10.8)
== END 2018-01-02 09:30 | disposition home or self-care (01) ==
LOC: INF 08:50
PROVIDERS: Family Provider Family Medicine; PCP Family Medicine; Visit Provider Internal Medicine Medical Oncology
DX: Z45.2 Encounter for adjustment and management of vascular access device (principal); C92.00 Acute myeloblastic leukemia, not having achieved remission
CPT/HCPCS: 85025; J1642

== ENCOUNTER 2018-01-09 09:05 | Outpatient (CLI) | payer MEDICARE, OTHER, SELFPAY ==
[2018-01-09 09:00] VITALS: BMI 29.2
[2018-01-09 09:25] LABS: Basophils % 0.8 % (0.1-2.0); Eosinophils # 0.1 K/mm3 (0.0-0.4); Eosinophils % 3.3 % (0.1-12.0); Hematocrit 45.8 % (42.0-52.0); Hemoglobin 14.9 g/dL (14.1-18.0); Lymphocytes # 1.7 K/mm3 (0.7-4.5); Lymphocytes % 45.7 K/mm3 (10-50); Mean Corpuscular HGB Conc 32.6 g/dL (31.8-35.4); Mean Corpuscular Hemoglobin 34.6 pg (27.0-31.2); Mean Corpuscular Volume 106.3 fl (80-94); Mean Platelet Volume 8.7 fl (7.4-10.4); Monocytes # 0.2 K/mm3 (0.1-1.0); Monocytes % 6.2 % (1.7-9.3); Neutrophils # 1.7 K/mm3 (1.8-7.8); Platelet Count 165 K/mm3 (142-424); Red Blood Count 4.31 M/mm3 (4.60-6.20); Red Cell Distribution Width 15.7 % (11.5-17.5); White Blood Count 3.7 K/mm3 (4.8-10.8)
== END 2018-01-09 09:55 | disposition home or self-care (01) ==
LOC: INF 09:05
PROVIDERS: Visit Provider Internal Medicine Medical Oncology
DX: C92.00 Acute myeloblastic leukemia, not having achieved remission (principal)
CPT/HCPCS: 85025; J1642

== ENCOUNTER 2018-01-13 08:50 | Outpatient (CLI) | payer MEDICARE, OTHER, SELFPAY ==
[2018-01-13 09:31] VITALS: BP 151/83; PULSE 63; RESP 18; TEMP 36.8; O2SAT 96
[2018-01-13 10:01] VITALS: BP 150/81; PULSE 61; RESP 18; O2SAT 97
[2018-01-13 10:31] VITALS: BP 154/84; PULSE 64; RESP 18; O2SAT 97
[2018-01-13 10:50] VITALS: BP 155/83; PULSE 58; RESP 18; O2SAT 96
== END 2018-01-13 11:33 | disposition hospice, home (50) ==
LOC: INF 08:50
PROVIDERS: Visit Provider Internal Medicine Medical Oncology
DX: Z51.11 Encounter for antineoplastic chemotherapy (principal); C92.00 Acute myeloblastic leukemia, not having achieved remission
CPT/HCPCS: 96413; J0894

== ENCOUNTER 2018-01-14 08:47 | Outpatient (CLI) | payer MEDICARE, OTHER, SELFPAY ==
[2018-01-14 08:54] VITALS: BMI 29.2
[2018-01-14 09:18] LABS: Basophils # 0.1 K/mm3 (0-0.2); Basophils % 1.4 % (0.1-2.0); Eosinophils # 0.1 K/mm3 (0.0-0.4); Eosinophils % 2.5 % (0.1-12.0); Hemoglobin 15.6 g/dL (14.1-18.0); Lymphocytes # 1.7 K/mm3 (0.7-4.5); Lymphocytes % 42.4 K/mm3 (10-50); Mean Corpuscular HGB Conc 33.2 g/dL (31.8-35.4); Mean Corpuscular Hemoglobin 35.4 pg (27.0-31.2); Mean Corpuscular Volume 106.7 fl (80-94); Mean Platelet Volume 8.6 fl (7.4-10.4); Monocytes # 0.3 K/mm3 (0.1-1.0); Monocytes % 6.4 % (1.7-9.3); Neutrophils # 1.9 K/mm3 (1.8-7.8); Neutrophils % 47.2 % (37.0-80.0); Platelet Count 255 K/mm3 (142-424); Red Blood Count 4.41 M/mm3 (4.60-6.20); Red Cell Distribution Width 15.3 % (11.5-17.5); White Blood Count 4.1 K/mm3 (4.8-10.8)
[2018-01-14 10:50] VITALS: BP 142/73; PULSE 52; RESP 20; TEMP 36.9; O2SAT 96
[2018-01-14 11:20] VITALS: BP 112/70; PULSE 68; RESP 20; TEMP 36.9; O2SAT 96
[2018-01-14 11:50] VITALS: BP 155/67; PULSE 68; RESP 20; TEMP 36.9; O2SAT 95
== END 2018-01-14 11:55 | disposition home or self-care (01) ==
LOC: INF 08:47
PROVIDERS: Visit Provider Internal Medicine Medical Oncology
DX: Z51.11 Encounter for antineoplastic chemotherapy (principal); C92.00 Acute myeloblastic leukemia, not having achieved remission
CPT/HCPCS: 85025; 96413; J0894

== ENCOUNTER 2018-01-15 08:43 | Outpatient (CLI) | payer MEDICARE, OTHER, SELFPAY ==
[2018-01-15 08:44] VITALS: BMI 29.2
[2018-01-15 09:02] LABS: Eosinophils # 0.1 K/mm3 (0.0-0.4); Eosinophils % 1.7 % (0.1-12.0); Hemoglobin 15.5 g/dL (14.1-18.0); Lymphocytes # 1.5 K/mm3 (0.7-4.5); Lymphocytes % 36.9 K/mm3 (10-50); Mean Corpuscular HGB Conc 33.1 g/dL (31.8-35.4); Mean Corpuscular Hemoglobin 35.4 pg (27.0-31.2); Mean Corpuscular Volume 107.1 fl (80-94); Mean Platelet Volume 8.4 fl (7.4-10.4); Monocytes # 0.2 K/mm3 (0.1-1.0); Monocytes % 4.7 % (1.7-9.3); Neutrophils # 2.3 K/mm3 (1.8-7.8); Neutrophils % 55.7 % (37.0-80.0); Platelet Count 271 K/mm3 (142-424); Red Blood Count 4.39 M/mm3 (4.60-6.20); Red Cell Distribution Width 15.2 % (11.5-17.5); White Blood Count 4.1 K/mm3 (4.8-10.8)
[2018-01-15 10:06] VITALS: BP 133/73; PULSE 59; RESP 18; TEMP 36.6; O2SAT 98
[2018-01-15 10:36] VITALS: BP 140/71; PULSE 56; RESP 18; O2SAT 97
[2018-01-15 11:06] VITALS: BP 149/78; PULSE 57; RESP 18; O2SAT 98
[2018-01-15 11:30] VITALS: BP 158/87; PULSE 51; RESP 18; O2SAT 98
== END 2018-01-15 11:35 | disposition home or self-care (01) ==
LOC: INF 08:43
PROVIDERS: Visit Provider Internal Medicine Medical Oncology
DX: Z51.11 Encounter for antineoplastic chemotherapy (principal); C92.00 Acute myeloblastic leukemia, not having achieved remission
CPT/HCPCS: 85025; 96413; J0894; J1642

== ENCOUNTER 2018-01-16 08:54 | Outpatient (CLI) | payer MEDICARE, OTHER, SELFPAY ==
[2018-01-16 08:42] VITALS: BMI 29.2
[2018-01-16 08:59] LABS: Basophils % 0.9 % (0.1-2.0); Eosinophils # 0.1 K/mm3 (0.0-0.4); Eosinophils % 1.6 % (0.1-12.0); Hematocrit 45.7 % (42.0-52.0); Hemoglobin 15.4 g/dL (14.1-18.0); Lymphocytes # 1.5 K/mm3 (0.7-4.5); Lymphocytes % 37.7 K/mm3 (10-50); Mean Corpuscular HGB Conc 33.8 g/dL (31.8-35.4); Mean Corpuscular Hemoglobin 35.7 pg (27.0-31.2); Mean Corpuscular Volume 105.5 fl (80-94); Mean Platelet Volume 8.6 fl (7.4-10.4); Monocytes # 0.2 K/mm3 (0.1-1.0); Monocytes % 5.4 % (1.7-9.3); Neutrophils # 2.1 K/mm3 (1.8-7.8); Neutrophils % 54.4 % (37.0-80.0); Platelet Count 278 K/mm3 (142-424); Red Blood Count 4.33 M/mm3 (4.60-6.20); White Blood Count 3.9 K/mm3 (4.8-10.8)
[2018-01-16 09:44] VITALS: BP 156/76; PULSE 53; RESP 18; TEMP 36.6; O2SAT 97
[2018-01-16 10:14] VITALS: BP 151/74; PULSE 58; RESP 18; O2SAT 96
[2018-01-16 10:44] VITALS: BP 154/72; PULSE 57; RESP 18; O2SAT 97
[2018-01-16 11:11] VITALS: BP 150/71; PULSE 54; RESP 18; O2SAT 96
== END 2018-01-16 11:17 | disposition home or self-care (01) ==
LOC: INF 08:54
PROVIDERS: Visit Provider Internal Medicine Medical Oncology
DX: Z51.11 Encounter for antineoplastic chemotherapy (principal); C92.00 Acute myeloblastic leukemia, not having achieved remission
CPT/HCPCS: 85025; 96413; J0894

== ENCOUNTER 2018-01-17 08:41 | Outpatient (CLI) | payer MEDICARE, OTHER, SELFPAY ==
[2018-01-17 08:41] VITALS: BMI 29.2
[2018-01-17 09:04] LABS: Basophils # 0.1 K/mm3 (0-0.2); Basophils % 1.2 % (0.1-2.0); Eosinophils # 0.1 K/mm3 (0.0-0.4); Eosinophils % 1.4 % (0.1-12.0); Hematocrit 49.4 % (42.0-52.0); Hemoglobin 15.7 g/dL (14.1-18.0); Lymphocytes # 1.6 K/mm3 (0.7-4.5); Lymphocytes % 40.5 K/mm3 (10-50); Mean Corpuscular HGB Conc 31.8 g/dL (31.8-35.4); Mean Corpuscular Hemoglobin 34.2 pg (27.0-31.2); Mean Corpuscular Volume 107.6 fl (80-94); Monocytes # 0.2 K/mm3 (0.1-1.0); Neutrophils % 51.9 % (37.0-80.0); Platelet Count 271 K/mm3 (142-424); Red Blood Count 4.59 M/mm3 (4.60-6.20); White Blood Count 3.9 K/mm3 (4.8-10.8)
[2018-01-17 10:15] VITALS: BP 133/74; PULSE 76; RESP 20; TEMP 36.9; O2SAT 96
[2018-01-17 10:45] VITALS: BP 165/74; PULSE 68; RESP 20; TEMP 36.9; O2SAT 96
[2018-01-17 11:15] VITALS: BP 160/79; PULSE 79; RESP 20; TEMP 37.2; O2SAT 96
== END 2018-01-17 11:30 | disposition home or self-care (01) ==
LOC: INF 08:41
PROVIDERS: Visit Provider Internal Medicine Medical Oncology
DX: Z51.11 Encounter for antineoplastic chemotherapy (principal); C92.00 Acute myeloblastic leukemia, not having achieved remission
CPT/HCPCS: 85025; 96413; J0894

== ENCOUNTER 2018-01-21 08:53 | Outpatient (CLI) | payer MEDICARE, OTHER, SELFPAY ==
[2018-01-21 08:53] VITALS: BMI 29.2
[2018-01-21 09:15] LABS: Basophils % 0.7 % (0.1-2.0); Eosinophils # 0.1 K/mm3 (0.0-0.4); Eosinophils % 2.3 % (0.1-12.0); Hematocrit 48.4 % (42.0-52.0); Hemoglobin 15.8 g/dL (14.1-18.0); Lymphocytes # 1.7 K/mm3 (0.7-4.5); Lymphocytes % 30.5 K/mm3 (10-50); Mean Corpuscular HGB Conc 32.7 g/dL (31.8-35.4); Mean Corpuscular Hemoglobin 35.1 pg (27.0-31.2); Mean Corpuscular Volume 107.2 fl (80-94); Mean Platelet Volume 8.7 fl (7.4-10.4); Monocytes # 0.2 K/mm3 (0.1-1.0); Monocytes % 3.9 % (1.7-9.3); Neutrophils # 3.6 K/mm3 (1.8-7.8); Neutrophils % 62.6 % (37.0-80.0); Platelet Count 263 K/mm3 (142-424); Red Blood Count 4.51 M/mm3 (4.60-6.20); Red Cell Distribution Width 15.5 % (11.5-17.5); White Blood Count 5.7 K/mm3 (4.8-10.8)
[2018-01-21 09:34] VITALS: BP 120/68; PULSE 57; RESP 20; TEMP 36.6; O2SAT 98
== END 2018-01-21 09:38 | disposition home or self-care (01) ==
LOC: INF 08:53
PROVIDERS: Visit Provider Internal Medicine Medical Oncology
DX: C92.00 Acute myeloblastic leukemia, not having achieved remission (principal)
CPT/HCPCS: 85025; J1642

== ENCOUNTER → 2018-01-21 09:45 | Outpatient (POV) | payer MEDICARE, OTHER, SELFPAY | PROVIDERS: PCP Family Medicine; Visit Provider Dermatology | DX: Z00.00 Encounter for general adult medical examination without abnormal findings (principal) ==

== ENCOUNTER 2018-01-30 11:21 | Outpatient (CLI) | payer MEDICARE, OTHER, SELFPAY ==
[2018-01-30 11:22] VITALS: BMI 29.2
[2018-01-30 11:40] VITALS: BP 131/65; PULSE 68; RESP 18; TEMP 36.6; O2SAT 98
[2018-01-30 11:57] LABS: Basophils % 0.7 % (0.1-2.0); Eosinophils # 0.2 K/mm3 (0.0-0.4); Eosinophils % 3.4 % (0.1-12.0); Hematocrit 50.4 % (42.0-52.0); Hemoglobin 16.3 g/dL (14.1-18.0); Lymphocytes # 2.3 K/mm3 (0.7-4.5); Lymphocytes % 35.6 % (10-50); Mean Corpuscular HGB Conc 32.4 g/dL (31.8-35.4); Mean Corpuscular Hemoglobin 34.9 pg (27.0-31.2); Mean Corpuscular Volume 107.6 fl (80-94); Mean Platelet Volume 8.5 fl (7.4-10.4); Monocytes # 0.4 K/mm3 (0.1-1.0); Monocytes % 6.8 % (1.7-9.3); Neutrophils # 3.5 K/mm3 (1.8-7.8); Neutrophils % 53.5 % (37.0-80.0); Platelet Count 184 K/mm3 (142-424); Red Blood Count 4.68 M/mm3 (4.60-6.20); Red Cell Distribution Width 15.5 % (11.5-17.5); White Blood Count 6.5 K/mm3 (4.8-10.8)
== END 2018-01-30 12:20 | disposition home or self-care (01) ==
LOC: INF 11:21
PROVIDERS: Visit Provider Internal Medicine Medical Oncology
DX: Z45.2 Encounter for adjustment and management of vascular access device (principal); C92.00 Acute myeloblastic leukemia, not having achieved remission
CPT/HCPCS: 85025; J1642

== ENCOUNTER 2018-02-04 08:47 | Outpatient (CLI) | payer MEDICARE, OTHER, SELFPAY ==
[2018-02-04 08:47] VITALS: BMI 28.7
[2018-02-04 08:50] VITALS: BMI 29.2
[2018-02-04 09:00] VITALS: BP 126/72; PULSE 62; RESP 20; TEMP 36.9; O2SAT 95
[2018-02-04 09:10] LABS: Basophils % 0.6 % (0.1-2.0); Eosinophils # 0.2 K/mm3 (0.0-0.4); Hematocrit 46.2 % (42.0-52.0); Hemoglobin 15.2 g/dL (14.1-18.0); Lymphocytes # 2.1 K/mm3 (0.7-4.5); Lymphocytes % 55.9 % (10-50); Mean Corpuscular Hemoglobin 35.2 pg (27.0-31.2); Mean Corpuscular Volume 106.7 fl (80-94); Mean Platelet Volume 8.8 fl (7.4-10.4); Monocytes # 0.3 K/mm3 (0.1-1.0); Monocytes % 6.9 % (1.7-9.3); Neutrophils # 1.2 K/mm3 (1.8-7.8); Neutrophils % 32.6 % (37.0-80.0); Platelet Count 143 K/mm3 (142-424); Red Blood Count 4.34 M/mm3 (4.60-6.20); Red Cell Distribution Width 15.4 % (11.5-17.5); White Blood Count 3.8 K/mm3 (4.8-10.8)
[2018-02-04 09:11] LABS: MANUAL DIFFERENTIAL MANUAL DIFFERENTIAL (MANUAL DIFF)
[2018-02-04 09:24] LABS: Lymphocytes % 54 % (10-50); Macrocytosis 2+; Monocytes % 8 % (2-9); Neutrophils % 30 % (42-76); Platelet Estimate Normal; Total Cells Counted 50
== END 2018-02-04 09:30 | disposition home or self-care (01) ==
LOC: INF 08:47
PROVIDERS: Visit Provider Internal Medicine Medical Oncology
DX: C92.00 Acute myeloblastic leukemia, not having achieved remission (principal)
CPT/HCPCS: 85007; 85025; J1642

== ENCOUNTER 2018-02-10 08:37 | Outpatient (CLI) | payer MEDICARE, OTHER, SELFPAY ==
[2018-02-10 08:37] VITALS: BMI 28.7
[2018-02-10 08:39] VITALS: BMI 29.2
[2018-02-10 09:40] VITALS: BP 121/73; PULSE 59; RESP 18; TEMP 36.3; O2SAT 97
[2018-02-10 10:10] VITALS: BP 119/76; PULSE 61; RESP 18; O2SAT 97
[2018-02-10 10:40] VITALS: BP 120/77; PULSE 60; RESP 18; O2SAT 96
[2018-02-10 10:55] VITALS: BP 126/71; PULSE 59; RESP 18; O2SAT 97
== END 2018-02-10 11:07 | disposition home or self-care (01) ==
LOC: INF 08:37
PROVIDERS: Visit Provider Internal Medicine Medical Oncology
DX: Z51.11 Encounter for antineoplastic chemotherapy (principal); C92.00 Acute myeloblastic leukemia, not having achieved remission
CPT/HCPCS: 96413; J0894

== ENCOUNTER 2018-02-11 08:31 | Outpatient (CLI) | payer MEDICARE, OTHER, SELFPAY ==
[2018-02-11 08:33] VITALS: BMI 28.8
[2018-02-11 09:01] LABS: Basophils # 0.1 K/mm3 (0-0.2); Basophils % 1.2 % (0.1-2.0); Eosinophils # 0.1 K/mm3 (0.0-0.4); Eosinophils % 2.1 % (0.1-12.0); Hematocrit 46.9 % (42.0-52.0); Hemoglobin 15.1 g/dL (14.1-18.0); Lymphocytes # 2.2 K/mm3 (0.7-4.5); Mean Corpuscular HGB Conc 32.2 g/dL (31.8-35.4); Mean Corpuscular Hemoglobin 34.6 pg (27.0-31.2); Mean Corpuscular Volume 107.3 fl (80-94); Mean Platelet Volume 9.1 fl (7.4-10.4); Monocytes # 0.2 K/mm3 (0.1-1.0); Monocytes % 4.9 % (1.7-9.3); Neutrophils # 1.8 K/mm3 (1.8-7.8); Neutrophils % 40.7 % (37.0-80.0); Platelet Count 192 K/mm3 (142-424); Red Blood Count 4.37 M/mm3 (4.60-6.20); Red Cell Distribution Width 15.5 % (11.5-17.5); White Blood Count 4.3 K/mm3 (4.8-10.8)
[2018-02-11 09:10] LABS: MANUAL DIFFERENTIAL MANUAL DIFFERENTIAL (MANUAL DIFF)
[2018-02-11 09:42] LABS: Eosinophils % 2 % (0-3); Lymphocytes % 49 % (10-50); Monocytes % 5 % (2-9); Neutrophils % 40 % (42-76); Platelet Estimate Normal; Total Cells Counted 100
[2018-02-11 09:43] LABS: Macrocytosis 2+; Stomatocytes 1+
[2018-02-11 10:31] VITALS: BP 127/74; PULSE 54; RESP 18; TEMP 36.7; O2SAT 98
[2018-02-11 11:01] VITALS: BP 122/78; PULSE 58; RESP 18; O2SAT 97
[2018-02-11 11:45] VITALS: BP 131/74; PULSE 59; RESP 18; O2SAT 97
== END 2018-02-11 11:45 | disposition home or self-care (01) ==
LOC: INF 08:31
PROVIDERS: Visit Provider Internal Medicine Medical Oncology
DX: Z51.11 Encounter for antineoplastic chemotherapy (principal); C92.00 Acute myeloblastic leukemia, not having achieved remission
CPT/HCPCS: 85007; 85025; 96413; J0894

== ENCOUNTER 2018-02-12 08:56 | Outpatient (CLI) | payer MEDICARE, OTHER, SELFPAY ==
[2018-02-12 08:58] VITALS: BMI 28.8
[2018-02-12 09:15] LABS: Basophils # 0.1 K/mm3 (0-0.2); Basophils % 1.3 % (0.1-2.0); Eosinophils # 0.1 K/mm3 (0.0-0.4); Eosinophils % 1.7 % (0.1-12.0); Hematocrit 47.5 % (42.0-52.0); Hemoglobin 15.5 g/dL (14.1-18.0); Lymphocytes # 1.9 K/mm3 (0.7-4.5); Lymphocytes % 39.7 % (10-50); Mean Corpuscular HGB Conc 32.6 g/dL (31.8-35.4); Mean Corpuscular Hemoglobin 34.9 pg (27.0-31.2); Mean Corpuscular Volume 106.8 fl (80-94); Mean Platelet Volume 8.8 fl (7.4-10.4); Monocytes # 0.3 K/mm3 (0.1-1.0); Monocytes % 5.4 % (1.7-9.3); Neutrophils # 2.5 K/mm3 (1.8-7.8); Platelet Count 196 K/mm3 (142-424); Red Blood Count 4.45 M/mm3 (4.60-6.20); Red Cell Distribution Width 15.6 % (11.5-17.5); White Blood Count 4.8 K/mm3 (4.8-10.8)
[2018-02-12 09:54] VITALS: BP 131/70; PULSE 57; RESP 18; TEMP 36.4; O2SAT 98
[2018-02-12 10:24] VITALS: BP 130/67; PULSE 59; RESP 18; O2SAT 97
[2018-02-12 10:54] VITALS: BP 134/69; PULSE 56; RESP 18; O2SAT 97
[2018-02-12 11:20] VITALS: BP 132/71; PULSE 57; RESP 18; O2SAT 98
== END 2018-02-12 11:25 | disposition home or self-care (01) ==
LOC: INF 08:56
PROVIDERS: Visit Provider Internal Medicine Medical Oncology
DX: C92.00 Acute myeloblastic leukemia, not having achieved remission (principal)
CPT/HCPCS: 85025; 96413; J0894

== ENCOUNTER 2018-02-13 08:50 | Outpatient (CLI) | payer MEDICARE, OTHER, SELFPAY ==
[2018-02-13 08:54] VITALS: BMI 28.8
[2018-02-13 09:18] LABS: Basophils # 0.1 K/mm3 (0-0.2); Basophils % 1.4 % (0.1-2.0); Eosinophils # 0.1 K/mm3 (0.0-0.4); Eosinophils % 1.7 % (0.1-12.0); Hematocrit 47.1 % (42.0-52.0); Hemoglobin 15.3 g/dL (14.1-18.0); Lymphocytes # 1.8 K/mm3 (0.7-4.5); Mean Corpuscular HGB Conc 32.5 g/dL (31.8-35.4); Mean Corpuscular Hemoglobin 34.7 pg (27.0-31.2); Monocytes # 0.2 K/mm3 (0.1-1.0); Monocytes % 5.4 % (1.7-9.3); Neutrophils # 2.3 K/mm3 (1.8-7.8); Neutrophils % 51.6 % (37.0-80.0); Platelet Count 210 K/mm3 (142-424); Red Cell Distribution Width 15.5 % (11.5-17.5); White Blood Count 4.4 K/mm3 (4.8-10.8)
[2018-02-13 10:05] VITALS: BP 134/66; PULSE 54; RESP 18; TEMP 36.7
[2018-02-13 10:20] VITALS: BP 127/64; PULSE 52; RESP 18
[2018-02-13 10:35] VITALS: BP 130/65; PULSE 52; RESP 18
[2018-02-13 10:50] VITALS: BP 132/69; PULSE 52; RESP 18
[2018-02-13 11:05] VITALS: BP 127/70; PULSE 51; RESP 18
[2018-02-13 11:15] VITALS: BP 130/70; PULSE 52; RESP 18
== END 2018-02-13 11:45 | disposition home or self-care (01) ==
PROVIDERS: Visit Provider Internal Medicine Medical Oncology
DX: Z51.11 Encounter for antineoplastic chemotherapy (principal); C92.00 Acute myeloblastic leukemia, not having achieved remission
CPT/HCPCS: 85025; 96413; J0894

== ENCOUNTER 2018-02-14 08:53 | Outpatient (CLI) | payer MEDICARE, OTHER, SELFPAY ==
[2018-02-14 08:49] VITALS: BMI 28.7
[2018-02-14 09:12] LABS: Basophils # 0.1 K/mm3 (0-0.2); Basophils % 1.3 % (0.1-2.0); Eosinophils # 0.1 K/mm3 (0.0-0.4); Eosinophils % 1.8 % (0.1-12.0); Hematocrit 47.4 % (42.0-52.0); Hemoglobin 15.2 g/dL (14.1-18.0); Lymphocytes # 1.9 K/mm3 (0.7-4.5); Lymphocytes % 44.6 % (10-50); Mean Corpuscular Hemoglobin 34.5 pg (27.0-31.2); Mean Platelet Volume 8.7 fl (7.4-10.4); Monocytes # 0.2 K/mm3 (0.1-1.0); Monocytes % 4.7 % (1.7-9.3); Neutrophils # 2.1 K/mm3 (1.8-7.8); Neutrophils % 47.6 % (37.0-80.0); Platelet Count 227 K/mm3 (142-424); Red Blood Count 4.39 M/mm3 (4.60-6.20); Red Cell Distribution Width 15.4 % (11.5-17.5); White Blood Count 4.3 K/mm3 (4.8-10.8)
[2018-02-14 10:00] VITALS: BP 154/74; PULSE 68; RESP 20; TEMP 37.1; O2SAT 96
[2018-02-14 10:30] VITALS: BP 135/74; PULSE 68; RESP 20; TEMP 36.9; O2SAT 95
[2018-02-14 11:05] VITALS: BP 141/77; PULSE 68; RESP 20; TEMP 36.9; O2SAT 95
== END 2018-02-14 11:00 | disposition home or self-care (01) ==
LOC: INF 08:53
PROVIDERS: Visit Provider Internal Medicine Medical Oncology
DX: Z51.11 Encounter for antineoplastic chemotherapy (principal); C92.00 Acute myeloblastic leukemia, not having achieved remission
CPT/HCPCS: 85025; 96413; J0894

== ENCOUNTER → 2018-02-17 06:49 | Outpatient (CLI) | payer MEDICARE, OTHER, SELFPAY ==
--- NOTE | 2018-02-17 06:52 | NM_ITS ---
History and Indications: Coronary disease, hypertension, family history. Procedure: Patient received 0.4 mg of intravenous Lexiscan, resting heart rate was 53 bpm resting blood pressure 149/85, with Lexiscan maximum heart rate achieved was 84 bpm which is less than 85% of the maximum] heart rate and a blood pressure was 155/90. With Lexiscan patient complained of shortness of breath and malaise. Electrocardiogram: Resting electrocardiogram showed sinus bradycardia, with Lexiscan there is less than 1.[address] segment depression noted from the baseline EKG. The EKG portion Lexiscan Myoview is nondiagnostic. Cardiac stress and resting SPECT images: Cardiac stress and resting SPECT images were obtained using Tc 99 Myoview 32.3 degrees at stress than 10.5 mCi at rest. Gated SPECT further analysis of segmental wall motion and calculation of the ejection fraction also done. Cardiac stress and resting SPECT images show uniform myocardial activity without segmental abnormality, computer derived ejection fraction is 49% with no regional wall motion abnormality, right ventricle is normal size and contractility. Conclusion: 1. The EKG portion of the Lexiscan Myoview is nondiagnostic. 2. No scintigraphic evidence of reversible ischemia seen, computer derived ejection fraction is 49% with no regional wall motion abnormality, right ventricle is normal size and contractility.
--- NOTE | 2018-02-17 07:37 | HMH.ITSHM ---
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 []LISINOPRIL HYDROCHLOROTHIAZIDE BISOPROLOL ACYCLOVIR FLUCONAZOLE VITAMIN D3 ASA
== END ==
PROVIDERS: PCP Family Medicine; Visit Provider Internal Medicine
DX: C95.90 Leukemia, unspecified not having achieved remission (principal); G47.30 Sleep apnea, unspecified; I10 Essential (primary) hypertension; I25.10 Atherosclerotic heart disease of native coronary artery without angina pectoris; Z95.5 Presence of coronary angioplasty implant and graft
CPT/HCPCS: 78452; 93017; A9502; J2785

== ENCOUNTER 2018-02-20 09:45 | Outpatient (CLI) | payer MEDICARE, OTHER, SELFPAY ==
[2018-02-20 09:50] VITALS: BP 138/70; PULSE 74; RESP 18; TEMP 36.5; O2SAT 98
[2018-02-20 10:02] VITALS: BMI 28.8
[2018-02-20 10:13] LABS: Basophils % 0.6 % (0.1-2.0); Eosinophils # 0.2 K/mm3 (0.0-0.4); Eosinophils % 2.7 % (0.1-12.0); Hematocrit 46.4 % (42.0-52.0); Hemoglobin 15.2 g/dL (14.1-18.0); Lymphocytes # 2.3 K/mm3 (0.7-4.5); Lymphocytes % 37.2 % (10-50); Mean Corpuscular HGB Conc 32.7 g/dL (31.8-35.4); Mean Corpuscular Hemoglobin 35.1 pg (27.0-31.2); Mean Corpuscular Volume 107.6 fl (80-94); Mean Platelet Volume 8.9 fl (7.4-10.4); Monocytes # 0.2 K/mm3 (0.1-1.0); Monocytes % 3.6 % (1.7-9.3); Neutrophils # 3.5 K/mm3 (1.8-7.8); Platelet Count 203 K/mm3 (142-424); Red Blood Count 4.31 M/mm3 (4.60-6.20); Red Cell Distribution Width 15.9 % (11.5-17.5); White Blood Count 6.2 K/mm3 (4.8-10.8)
[2018-02-20 10:35] LABS: Cholesterol 176 mg/dL (140-200); HDL Cholesterol 35 mg/dL (27-67); LDL Cholesterol 114 mg/dL (0-130); Triglycerides 135 mg/dL (30-200); VLDL Cholesterol 27 mg/dL (0-40)
== END 2018-02-20 10:35 | disposition home or self-care (01) ==
LOC: INF 10:09
PROVIDERS: Family Medicine; Visit Provider Internal Medicine Medical Oncology
DX: Z45.2 Encounter for adjustment and management of vascular access device (principal); C92.00 Acute myeloblastic leukemia, not having achieved remission; E78.00 Pure hypercholesterolemia, unspecified
CPT/HCPCS: 80061; 85025; J1642

== ENCOUNTER 2018-02-27 09:13 | Outpatient (CLI) | payer MEDICARE, OTHER, SELFPAY ==
[2018-02-27 09:15] VITALS: BMI 28.7
[2018-02-27 09:34] LABS: Basophils % 0.2 % (0.1-2.0); Eosinophils # 0.3 K/mm3 (0.0-0.4); Eosinophils % 6.5 % (0.1-12.0); Hematocrit 45.8 % (42.0-52.0); Hemoglobin 14.9 g/dL (14.1-18.0); Lymphocytes # 1.8 K/mm3 (0.7-4.5); Lymphocytes % 40.2 % (10-50); Mean Corpuscular HGB Conc 32.6 g/dL (31.8-35.4); Mean Corpuscular Hemoglobin 34.9 pg (27.0-31.2); Mean Corpuscular Volume 107.3 fl (80-94); Monocytes # 0.3 K/mm3 (0.1-1.0); Monocytes % 5.7 % (1.7-9.3); Neutrophils # 2.2 K/mm3 (1.8-7.8); Neutrophils % 47.5 % (37.0-80.0); Platelet Count 165 K/mm3 (142-424); Red Blood Count 4.27 M/mm3 (4.60-6.20); Red Cell Distribution Width 16.1 % (11.5-17.5); White Blood Count 4.5 K/mm3 (4.8-10.8)
== END 2018-02-27 10:45 | disposition home or self-care (01) ==
LOC: INF 09:13
PROVIDERS: Visit Provider Internal Medicine Medical Oncology
DX: Z45.2 Encounter for adjustment and management of vascular access device (principal); C92.00 Acute myeloblastic leukemia, not having achieved remission
CPT/HCPCS: 85025; J1642

== ENCOUNTER 2018-03-06 09:16 | Outpatient (CLI) | payer MEDICARE, OTHER, SELFPAY ==
[2018-03-06 09:18] VITALS: BMI 29.6
[2018-03-06 09:38] LABS: Basophils % 0.4 % (0.1-2.0); Eosinophils # 0.1 K/mm3 (0.0-0.4); Eosinophils % 2.7 % (0.1-12.0); Hematocrit 45.6 % (42.0-52.0); Hemoglobin 14.9 g/dL (14.1-18.0); Lymphocytes # 2.1 K/mm3 (0.7-4.5); Mean Corpuscular HGB Conc 32.7 g/dL (31.8-35.4); Mean Corpuscular Hemoglobin 35.4 pg (27.0-31.2); Mean Corpuscular Volume 108.5 fl (80-94); Mean Platelet Volume 9.6 fl (7.4-10.4); Monocytes # 0.2 K/mm3 (0.1-1.0); Monocytes % 4.8 % (1.7-9.3); Neutrophils # 1.2 K/mm3 (1.8-7.8); Neutrophils % 32.1 % (37.0-80.0); Platelet Count 161 K/mm3 (142-424); Red Cell Distribution Width 16.5 % (11.5-17.5); White Blood Count 3.6 K/mm3 (4.8-10.8)
[2018-03-06 09:43] LABS: MANUAL DIFFERENTIAL MANUAL DIFFERENTIAL (MANUAL DIFF)
[2018-03-06 09:55] VITALS: BP 115/65; PULSE 62; RESP 18; TEMP 36.5; O2SAT 98
[2018-03-06 10:30] LABS: Eosinophils % 1 % (0-3); Lymphocytes % 54 % (10-50); Monocytes % 4 % (2-9); Neutrophils % 37 % (42-76); Total Cells Counted 100
[2018-03-06 10:31] LABS: Platelet Estimate Normal
[2018-03-06 10:32] LABS: Stomatocytes 2+
== END 2018-03-06 10:00 | disposition home or self-care (01) ==
LOC: INF 09:16
PROVIDERS: Visit Provider Internal Medicine Medical Oncology
DX: C92.00 Acute myeloblastic leukemia, not having achieved remission (principal)
CPT/HCPCS: 85007; 85025; J1642

== ENCOUNTER 2018-03-13 09:49 | Outpatient (CLI) | payer MEDICARE, OTHER, SELFPAY ==
[2018-03-13 09:52] VITALS: BMI 29.2
[2018-03-13 10:24] LABS: Basophils % 0.9 % (0.1-2.0); Eosinophils # 0.1 K/mm3 (0.0-0.4); Eosinophils % 1.9 % (0.1-12.0); Hematocrit 43.9 % (42.0-52.0); Hemoglobin 14.5 g/dL (14.1-18.0); Lymphocytes # 2.1 K/mm3 (0.7-4.5); Lymphocytes % 51.8 % (10-50); Mean Corpuscular Hemoglobin 35.8 pg (27.0-31.2); Mean Corpuscular Volume 108.4 fl (80-94); Mean Platelet Volume 9.2 fl (7.4-10.4); Monocytes # 0.2 K/mm3 (0.1-1.0); Monocytes % 4.4 % (1.7-9.3); Neutrophils # 1.7 K/mm3 (1.8-7.8); Neutrophils % 41.1 % (37.0-80.0); Platelet Count 209 K/mm3 (142-424); Red Blood Count 4.05 M/mm3 (4.60-6.20); Red Cell Distribution Width 16.1 % (11.5-17.5)
[2018-03-13 10:25] LABS: MANUAL DIFFERENTIAL MANUAL DIFFERENTIAL (MANUAL DIFF)
[2018-03-13 10:40] VITALS: BP 144/75; PULSE 57; RESP 18; TEMP 36.4; O2SAT 95
[2018-03-13 10:47] LABS: Eosinophils % 1 % (0-3); Lymphocytes % 44 % (10-50); Macrocytosis 2+; Monocytes % 2 % (2-9); Neutrophils % 47 % (42-76); Platelet Estimate Normal; Total Cells Counted 100
== END 2018-03-13 10:40 | disposition home or self-care (01) ==
LOC: INF 09:49
PROVIDERS: Visit Provider Internal Medicine Medical Oncology
DX: Z45.2 Encounter for adjustment and management of vascular access device (principal); C92.00 Acute myeloblastic leukemia, not having achieved remission
CPT/HCPCS: 85007; 85025; J1642

== ENCOUNTER 2018-03-17 09:03 | Outpatient (CLI) | payer MEDICARE, OTHER, SELFPAY ==
[2018-03-17 09:38] VITALS: BP 122/64; PULSE 65; RESP 18; TEMP 36.3; O2SAT 99
[2018-03-17 10:08] VITALS: BP 126/67; PULSE 69; RESP 18; O2SAT 98
[2018-03-17 10:54] VITALS: BP 130/64; PULSE 64; RESP 18; O2SAT 98
== END 2018-03-17 11:00 | disposition home or self-care (01) ==
LOC: INF 09:03
PROVIDERS: Visit Provider Internal Medicine Medical Oncology
DX: C92.00 Acute myeloblastic leukemia, not having achieved remission (principal)
CPT/HCPCS: 96413; J0894; J1642

== ENCOUNTER → 2018-03-18 12:33 | Outpatient (CLI) | payer MEDICARE, OTHER, SELFPAY ==
[2018-03-18 10:07] VITALS: BMI 29.5
[2018-03-18 10:18] LABS: Basophils % 0.6 % (0.1-2.0); Eosinophils # 0.1 K/mm3 (0.0-0.4); Eosinophils % 1.4 % (0.1-12.0); Hematocrit 45.8 % (42.0-52.0); Hemoglobin 14.7 g/dL (14.1-18.0); Lymphocytes # 1.9 K/mm3 (0.7-4.5); Lymphocytes % 49.3 % (10-50); Mean Corpuscular Hemoglobin 34.9 pg (27.0-31.2); Mean Platelet Volume 9.2 fl (7.4-10.4); Monocytes # 0.2 K/mm3 (0.1-1.0); Monocytes % 5.5 % (1.7-9.3); Neutrophils # 1.6 K/mm3 (1.8-7.8); Neutrophils % 43.1 % (37.0-80.0); Platelet Count 223 K/mm3 (142-424); Red Blood Count 4.21 M/mm3 (4.60-6.20); Red Cell Distribution Width 15.4 % (11.5-17.5); White Blood Count 3.8 K/mm3 (4.8-10.8)
[2018-03-18 10:48] VITALS: BP 144/75; PULSE 78; RESP 20; TEMP 36.5; O2SAT 98
[2018-03-18 11:18] VITALS: BP 149/76; PULSE 81; RESP 20; O2SAT 97
[2018-03-18 11:48] VITALS: BP 141/74; PULSE 79; RESP 20; O2SAT 97
[2018-03-18 12:00] VITALS: BP 142/79; PULSE 80; RESP 20; O2SAT 98
== END | disposition home or self-care (01) ==
LOC: INF 12:34
PROVIDERS: PCP Family Medicine; Visit Provider Internal Medicine Medical Oncology
DX: Z51.11 Encounter for antineoplastic chemotherapy (principal); C92.00 Acute myeloblastic leukemia, not having achieved remission
CPT/HCPCS: 85025; 96413; J0894; J1642

== ENCOUNTER 2018-03-19 09:04 | Outpatient (CLI) | payer MEDICARE, OTHER, SELFPAY ==
[2018-03-19 08:48] VITALS: BMI 29.5
[2018-03-19 09:07] LABS: Basophils % 0.8 % (0.1-2.0); Eosinophils # 0.1 K/mm3 (0.0-0.4); Eosinophils % 2.6 % (0.1-12.0); Hematocrit 47.1 % (42.0-52.0); Hemoglobin 15.1 g/dL (14.1-18.0); Lymphocytes # 1.8 K/mm3 (0.7-4.5); Lymphocytes % 43.8 % (10-50); Mean Corpuscular HGB Conc 32.1 g/dL (31.8-35.4); Mean Corpuscular Hemoglobin 34.9 pg (27.0-31.2); Mean Corpuscular Volume 108.7 fl (80-94); Monocytes # 0.2 K/mm3 (0.1-1.0); Neutrophils % 48.8 % (37.0-80.0); Platelet Count 225 K/mm3 (142-424); Red Blood Count 4.34 M/mm3 (4.60-6.20); Red Cell Distribution Width 15.6 % (11.5-17.5); White Blood Count 4.1 K/mm3 (4.8-10.8)
[2018-03-19 09:38] VITALS: BP 131/65; PULSE 64; RESP 20; TEMP 36.9; O2SAT 97
[2018-03-19 10:08] VITALS: BP 135/61; PULSE 68; RESP 20; O2SAT 98
[2018-03-19 10:38] VITALS: BP 130/64; PULSE 64; RESP 20; O2SAT 98
[2018-03-19 10:50] VITALS: BP 133/67; PULSE 65; RESP 20; O2SAT 98
== END 2018-03-19 11:00 | disposition home or self-care (01) ==
LOC: INF 09:04
PROVIDERS: Visit Provider Internal Medicine Medical Oncology
DX: Z51.11 Encounter for antineoplastic chemotherapy (principal); C92.00 Acute myeloblastic leukemia, not having achieved remission
CPT/HCPCS: 85025; 96413; J0894; J1642

== ENCOUNTER 2018-03-20 08:50 | Outpatient (CLI) | payer MEDICARE, OTHER, SELFPAY ==
[2018-03-20 08:57] VITALS: BMI 29.6
[2018-03-20 09:17] LABS: Basophils % 0.6 % (0.1-2.0); Eosinophils # 0.1 K/mm3 (0.0-0.4); Eosinophils % 2.7 % (0.1-12.0); Hematocrit 47.2 % (42.0-52.0); Hemoglobin 15.1 g/dL (14.1-18.0); Lymphocytes # 1.5 K/mm3 (0.7-4.5); Lymphocytes % 44.5 % (10-50); Mean Corpuscular HGB Conc 32.1 g/dL (31.8-35.4); Mean Corpuscular Hemoglobin 35.1 pg (27.0-31.2); Mean Corpuscular Volume 109.3 fl (80-94); Mean Platelet Volume 8.9 fl (7.4-10.4); Monocytes # 0.1 K/mm3 (0.1-1.0); Neutrophils # 1.7 K/mm3 (1.8-7.8); Neutrophils % 48.2 % (37.0-80.0); Platelet Count 221 K/mm3 (142-424); Red Blood Count 4.32 M/mm3 (4.60-6.20); Red Cell Distribution Width 15.5 % (11.5-17.5); White Blood Count 3.5 K/mm3 (4.8-10.8)
[2018-03-20 10:05] VITALS: BP 133/72; PULSE 58; RESP 18; TEMP 36.7; O2SAT 94
[2018-03-20 10:20] VITALS: BP 126/68; PULSE 56; RESP 16
[2018-03-20 10:35] VITALS: BP 127/67; PULSE 55; RESP 16
[2018-03-20 10:50] VITALS: BP 129/67; PULSE 64; RESP 16
[2018-03-20 11:05] VITALS: BP 135/69; PULSE 57; RESP 16
== END 2018-03-20 11:30 | disposition home or self-care (01) ==
LOC: INF 08:54
PROVIDERS: Visit Provider Internal Medicine Medical Oncology
DX: Z51.11 Encounter for antineoplastic chemotherapy (principal); C92.00 Acute myeloblastic leukemia, not having achieved remission
CPT/HCPCS: 85025; 96413; J0894

== ENCOUNTER 2018-03-21 08:45 | Outpatient (CLI) | payer MEDICARE, OTHER, SELFPAY ==
[2018-03-21 08:49] VITALS: BMI 29.5
[2018-03-21 09:09] LABS: Basophils % 0.4 % (0.1-2.0); Eosinophils # 0.1 K/mm3 (0.0-0.4); Eosinophils % 3.4 % (0.1-12.0); Hematocrit 46.9 % (42.0-52.0); Hemoglobin 15.2 g/dL (14.1-18.0); Lymphocytes # 1.6 K/mm3 (0.7-4.5); Lymphocytes % 41.8 % (10-50); Mean Corpuscular HGB Conc 32.4 g/dL (31.8-35.4); Mean Corpuscular Hemoglobin 35.5 pg (27.0-31.2); Mean Corpuscular Volume 109.6 fl (80-94); Mean Platelet Volume 9.1 fl (7.4-10.4); Monocytes # 0.2 K/mm3 (0.1-1.0); Monocytes % 4.1 % (1.7-9.3); Neutrophils # 1.9 K/mm3 (1.8-7.8); Neutrophils % 50.3 % (37.0-80.0); Platelet Count 196 K/mm3 (142-424); Red Blood Count 4.28 M/mm3 (4.60-6.20); Red Cell Distribution Width 15.6 % (11.5-17.5); White Blood Count 3.8 K/mm3 (4.8-10.8)
[2018-03-21 09:55] VITALS: BP 137/74; PULSE 60; RESP 18; TEMP 36.7; O2SAT 98
[2018-03-21 10:10] VITALS: BP 131/70; PULSE 59; RESP 18
[2018-03-21 10:25] VITALS: BP 128/75; PULSE 58; RESP 18
[2018-03-21 10:40] VITALS: BP 135/83; PULSE 56; RESP 18
[2018-03-21 10:55] VITALS: BP 150/78; PULSE 55; RESP 18
== END 2018-03-21 11:25 | disposition home or self-care (01) ==
LOC: INF 08:51
PROVIDERS: Visit Provider Internal Medicine Medical Oncology
DX: Z51.11 Encounter for antineoplastic chemotherapy (principal); C92.00 Acute myeloblastic leukemia, not having achieved remission
CPT/HCPCS: 85025; 96413; J0894

== ENCOUNTER 2018-03-26 09:25 | Outpatient (CLI) | payer MEDICARE, OTHER, SELFPAY ==
[2018-03-26 09:43] VITALS: BMI 29.6
[2018-03-26 09:59] VITALS: BMI 29.6
[2018-03-26 10:00] VITALS: BP 124/72; PULSE 61; RESP 18; TEMP 36.6; O2SAT 98
[2018-03-26 10:10] LABS: Basophils % 0.4 % (0.1-2.0); Eosinophils # 0.2 K/mm3 (0.0-0.4); Eosinophils % 5.2 % (0.1-12.0); Hematocrit 44.2 % (42.0-52.0); Hemoglobin 14.5 g/dL (14.1-18.0); Lymphocytes # 1.6 K/mm3 (0.7-4.5); Lymphocytes % 42.6 % (10-50); Mean Corpuscular HGB Conc 32.8 g/dL (31.8-35.4); Mean Corpuscular Hemoglobin 35.5 pg (27.0-31.2); Mean Corpuscular Volume 108.1 fl (80-94); Monocytes # 0.1 K/mm3 (0.1-1.0); Monocytes % 2.7 % (1.7-9.3); Neutrophils # 1.9 K/mm3 (1.8-7.8); Neutrophils % 49.2 % (37.0-80.0); Platelet Count 145 K/mm3 (142-424); Red Blood Count 4.08 M/mm3 (4.60-6.20); Red Cell Distribution Width 15.8 % (11.5-17.5); White Blood Count 3.8 K/mm3 (4.8-10.8)
[2018-03-26 10:14] VITALS: BP 124/72; PULSE 61; RESP 18; TEMP 36.6; O2SAT 98
== END 2018-03-26 10:16 | disposition home or self-care (01) ==
LOC: INF 09:48
PROVIDERS: Visit Provider Internal Medicine Medical Oncology
DX: C92.00 Acute myeloblastic leukemia, not having achieved remission (principal)
CPT/HCPCS: 85025

== ENCOUNTER 2018-04-03 09:47 | Outpatient (CLI) | payer MEDICARE, OTHER, SELFPAY ==
[2018-04-03 09:50] VITALS: BMI 29.6
[2018-04-03 10:14] LABS: Basophils % 0.3 % (0.1-2.0); Eosinophils # 0.1 K/mm3 (0.0-0.4); Eosinophils % 4.4 % (0.1-12.0); Hematocrit 45.2 % (42.0-52.0); Hemoglobin 14.5 g/dL (14.1-18.0); Mean Corpuscular HGB Conc 32.2 g/dL (31.8-35.4); Mean Corpuscular Hemoglobin 35.6 pg (27.0-31.2); Mean Corpuscular Volume 110.5 fl (80-94); Mean Platelet Volume 10.4 fl (7.4-10.4); Monocytes # 0.1 K/mm3 (0.1-1.0); Neutrophils # 0.7 K/mm3 (1.8-7.8); Neutrophils % 25.2 % (37.0-80.0); Platelet Count 67 K/mm3 (142-424); Red Blood Count 4.08 M/mm3 (4.60-6.20); Red Cell Distribution Width 16.4 % (11.5-17.5)
[2018-04-03 10:25] LABS: MANUAL DIFFERENTIAL MANUAL DIFFERENTIAL (MANUAL DIFF)
[2018-04-03 11:23] LABS: Eosinophils % 2 % (0-3); Lymphocytes % 65 % (10-50); Monocytes % 6 % (2-9); Neutrophils % 27 % (42-76); Total Cells Counted 100
[2018-04-03 11:24] LABS: Macrocytosis 2+
[2018-04-03 11:26] LABS: Platelet Estimate Moderate Decrease
== END 2018-04-03 10:45 | disposition home or self-care (01) ==
LOC: INF 09:47
PROVIDERS: Visit Provider Internal Medicine Medical Oncology
DX: C92.00 Acute myeloblastic leukemia, not having achieved remission (principal); Z45.2 Encounter for adjustment and management of vascular access device
CPT/HCPCS: 85007; 85025; J1642

== ENCOUNTER 2018-04-07 09:30 | Outpatient (CLI) | payer MEDICARE, OTHER, SELFPAY ==
[2018-04-07 09:33] VITALS: BMI 29.6
[2018-04-07 09:56] LABS: Basophils % 0.4 % (0.1-2.0); Eosinophils % 1.7 % (0.1-12.0); Hemoglobin 14.4 g/dL (14.1-18.0); Lymphocytes # 1.7 K/mm3 (0.7-4.5); Mean Corpuscular HGB Conc 32.8 g/dL (31.8-35.4); Mean Corpuscular Hemoglobin 35.5 pg (27.0-31.2); Mean Corpuscular Volume 108.2 fl (80-94); Monocytes # 0.1 K/mm3 (0.1-1.0); Monocytes % 5.6 % (1.7-9.3); Neutrophils # 0.4 K/mm3 (1.8-7.8); Neutrophils % 17.3 % (37.0-80.0); Platelet Count 89 K/mm3 (142-424); Red Blood Count 4.06 M/mm3 (4.60-6.20); White Blood Count 2.3 K/mm3 (4.8-10.8)
[2018-04-07 09:58] LABS: MANUAL DIFFERENTIAL MANUAL DIFFERENTIAL (MANUAL DIFF)
[2018-04-07 10:13] LABS: Eosinophils % 1 % (0-3); Lymphocytes % 79 % (10-50); Macrocytosis 2+; Monocytes % 1 % (2-9); Neutrophils % 17 % (42-76); Platelet Estimate Moderate Decrease; Total Cells Counted 100
== END 2018-04-07 10:50 | disposition home or self-care (01) ==
LOC: INF 09:30
PROVIDERS: Visit Provider Internal Medicine Medical Oncology
DX: C92.00 Acute myeloblastic leukemia, not having achieved remission (principal)
CPT/HCPCS: 85007; 85025; J1642

== ENCOUNTER 2018-04-10 09:50 | Outpatient (CLI) | payer MEDICARE, OTHER, SELFPAY ==
[2018-04-10 10:05] VITALS: BMI 29.2
[2018-04-10 10:25] LABS: Basophils % 0.5 % (0.1-2.0); Eosinophils % 0.9 % (0.1-12.0); Hemoglobin 14.7 g/dL (14.1-18.0); Lymphocytes # 1.7 K/mm3 (0.7-4.5); Lymphocytes % 73.9 % (10-50); Mean Corpuscular HGB Conc 33.4 g/dL (31.8-35.4); Mean Corpuscular Hemoglobin 36.2 pg (27.0-31.2); Mean Corpuscular Volume 108.1 fl (80-94); Mean Platelet Volume 9.8 fl (7.4-10.4); Monocytes # 0.1 K/mm3 (0.1-1.0); Monocytes % 6.1 % (1.7-9.3); Neutrophils # 0.4 K/mm3 (1.8-7.8); Neutrophils % 18.5 % (37.0-80.0); Platelet Count 134 K/mm3 (142-424); Red Blood Count 4.07 M/mm3 (4.60-6.20); Red Cell Distribution Width 16.7 % (11.5-17.5); White Blood Count 2.2 K/mm3 (4.8-10.8)
[2018-04-10 10:31] LABS: MANUAL DIFFERENTIAL MANUAL DIFFERENTIAL (MANUAL DIFF)
[2018-04-10 11:51] LABS: Eosinophils % 2 % (0-3); Lymphocytes % 73 % (10-50); Monocytes % 7 % (2-9); Neutrophils % 16 % (42-76); Platelet Estimate Slight Decrease; Total Cells Counted 100
[2018-04-10 11:52] LABS: Macrocytosis 2+
== END 2018-04-10 12:10 | disposition home or self-care (01) ==
LOC: INF 10:04
PROVIDERS: Visit Provider Internal Medicine Medical Oncology
DX: Z45.2 Encounter for adjustment and management of vascular access device (principal); C92.00 Acute myeloblastic leukemia, not having achieved remission
CPT/HCPCS: 85007; 85025; J1642

== ENCOUNTER 2018-04-17 09:37 | Outpatient (CLI) | payer MEDICARE, OTHER, SELFPAY ==
[2018-04-17 09:38] VITALS: BMI 29.6
[2018-04-17 10:11] LABS: Basophils % 0.5 % (0.1-2.0); Eosinophils % 0.8 % (0.1-12.0); Hematocrit 46.4 % (42.0-52.0); Lymphocytes # 2.1 K/mm3 (0.7-4.5); Lymphocytes % 74.2 % (10-50); Mean Corpuscular HGB Conc 32.3 g/dL (31.8-35.4); Mean Corpuscular Hemoglobin 35.9 pg (27.0-31.2); Mean Corpuscular Volume 111.1 fl (80-94); Mean Platelet Volume 9.5 fl (7.4-10.4); Monocytes # 0.1 K/mm3 (0.1-1.0); Monocytes % 3.9 % (1.7-9.3); Neutrophils # 0.6 K/mm3 (1.8-7.8); Neutrophils % 20.5 % (37.0-80.0); Platelet Count 207 K/mm3 (142-424); Red Blood Count 4.17 M/mm3 (4.60-6.20); Red Cell Distribution Width 17.2 % (11.5-17.5); White Blood Count 2.8 K/mm3 (4.8-10.8)
[2018-04-17 10:26] LABS: MANUAL DIFFERENTIAL MANUAL DIFFERENTIAL (MANUAL DIFF)
[2018-04-17 11:08] LABS: Lymphocytes % 69 % (10-50); Monocytes % 6 % (2-9); Neutrophils % 22 % (42-76); Total Cells Counted 100
[2018-04-17 11:09] LABS: Macrocytosis 2+; Platelet Estimate Normal
== END 2018-04-17 10:40 | disposition home or self-care (01) ==
LOC: INF 09:37
PROVIDERS: Visit Provider Internal Medicine Medical Oncology
DX: Z45.2 Encounter for adjustment and management of vascular access device (principal); C92.00 Acute myeloblastic leukemia, not having achieved remission
CPT/HCPCS: 85007; 85025; J1642

== ENCOUNTER 2018-04-24 09:25 | Outpatient (CLI) | payer MEDICARE, OTHER, SELFPAY ==
[2018-04-24 09:55] LABS: Basophils % 0.5 % (0.1-2.0); Eosinophils % 1.4 % (0.1-12.0); Hematocrit 43.1 % (42.0-52.0); Hemoglobin 14.2 g/dL (14.1-18.0); Lymphocytes # 1.8 K/mm3 (0.7-4.5); Mean Corpuscular HGB Conc 32.8 g/dL (31.8-35.4); Mean Corpuscular Volume 109.7 fl (80-94); Mean Platelet Volume 9.1 fl (7.4-10.4); Monocytes # 0.1 K/mm3 (0.1-1.0); Monocytes % 2.9 % (1.7-9.3); Neutrophils # 0.6 K/mm3 (1.8-7.8); Neutrophils % 23.2 % (37.0-80.0); Platelet Count 129 K/mm3 (142-424); Red Blood Count 3.93 M/mm3 (4.60-6.20); Red Cell Distribution Width 17.7 % (11.5-17.5); White Blood Count 2.5 K/mm3 (4.8-10.8)
[2018-04-24 09:59] LABS: MANUAL DIFFERENTIAL MANUAL DIFFERENTIAL (MANUAL DIFF)
[2018-04-24 10:19] LABS: Lymphocytes % 72 % (10-50); Macrocytosis 2+; Monocytes % 2 % (2-9); Neutrophils % 23 % (42-76); Platelet Estimate Normal; Total Cells Counted 100
== END 2018-04-24 10:40 | disposition home or self-care (01) ==
LOC: INF 09:27
PROVIDERS: Visit Provider Internal Medicine Medical Oncology
DX: Z45.2 Encounter for adjustment and management of vascular access device (principal); C92.00 Acute myeloblastic leukemia, not having achieved remission
CPT/HCPCS: 85007; 85025; J1642

== ENCOUNTER 2018-05-01 09:15 | Outpatient (CLI) | payer MEDICARE, OTHER, SELFPAY ==
[2018-05-01 09:18] VITALS: BMI 29.6
[2018-05-01 09:34] LABS: Basophils % 0.9 % (0.1-2.0); Eosinophils # 0.1 K/mm3 (0.0-0.4); Eosinophils % 3.9 % (0.1-12.0); Hematocrit 44.5 % (42.0-52.0); Hemoglobin 14.7 g/dL (14.1-18.0); Lymphocytes # 1.8 K/mm3 (0.7-4.5); Lymphocytes % 69.4 % (10-50); Mean Corpuscular HGB Conc 33.1 g/dL (31.8-35.4); Mean Corpuscular Hemoglobin 36.6 pg (27.0-31.2); Mean Corpuscular Volume 110.4 fl (80-94); Monocytes # 0.1 K/mm3 (0.1-1.0); Monocytes % 3.2 % (1.7-9.3); Neutrophils # 0.6 K/mm3 (1.8-7.8); Neutrophils % 22.6 % (37.0-80.0); Platelet Count 95 K/mm3 (142-424); Red Blood Count 4.03 M/mm3 (4.60-6.20); Red Cell Distribution Width 17.8 % (11.5-17.5); White Blood Count 2.6 K/mm3 (4.8-10.8)
[2018-05-01 09:38] LABS: MANUAL DIFFERENTIAL MANUAL DIFFERENTIAL (MANUAL DIFF)
[2018-05-01 09:56] LABS: Eosinophils % 1 % (0-3); Lymphocytes % 70 % (10-50); Monocytes % 3 % (2-9); Neutrophils % 23 % (42-76); Total Cells Counted 100
[2018-05-01 09:57] LABS: Macrocytosis 2+; Platelet Estimate Slight Decrease
== END 2018-05-01 10:55 | disposition home or self-care (01) ==
LOC: INF 09:16
PROVIDERS: Visit Provider Internal Medicine Medical Oncology
DX: C92.00 Acute myeloblastic leukemia, not having achieved remission (principal); Z45.2 Encounter for adjustment and management of vascular access device
CPT/HCPCS: 85007; 85025; J1642

== ENCOUNTER 2018-05-08 09:15 | Outpatient (CLI) | payer MEDICARE, OTHER, SELFPAY ==
[2018-05-08 09:45] LABS: Basophils % 0.4 % (0.1-2.0); Eosinophils # 0.1 K/mm3 (0.0-0.4); Hemoglobin 14.8 g/dL (14.1-18.0); Lymphocytes # 1.8 K/mm3 (0.7-4.5); Lymphocytes % 75.3 % (10-50); Mean Corpuscular HGB Conc 33.5 g/dL (31.8-35.4); Mean Corpuscular Hemoglobin 36.7 pg (27.0-31.2); Mean Corpuscular Volume 109.5 fl (80-94); Mean Platelet Volume 10.2 fl (7.4-10.4); Monocytes # 0.1 K/mm3 (0.1-1.0); Monocytes % 3.1 % (1.7-9.3); Neutrophils # 0.4 K/mm3 (1.8-7.8); Neutrophils % 17.2 % (37.0-80.0); Platelet Count 86 K/mm3 (142-424); Red Blood Count 4.02 M/mm3 (4.60-6.20); Red Cell Distribution Width 17.2 % (11.5-17.5); White Blood Count 2.4 K/mm3 (4.8-10.8)
[2018-05-08 09:56] LABS: MANUAL DIFFERENTIAL MANUAL DIFFERENTIAL (MANUAL DIFF)
[2018-05-08 10:15] LABS: Eosinophils % 1 % (0-3); Lymphocytes % 64 % (10-50); Macrocytosis 2+; Monocytes % 3 % (2-9); Neutrophils % 18 % (42-76); Platelet Estimate Moderate Decrease; Total Cells Counted 100
== END 2018-05-08 10:15 | disposition home or self-care (01) ==
LOC: INF 09:39
PROVIDERS: Visit Provider Internal Medicine Medical Oncology
DX: C92.00 Acute myeloblastic leukemia, not having achieved remission (principal)
CPT/HCPCS: 85007; 85025

== ENCOUNTER 2018-05-26 11:13 | Outpatient (CLI) | payer MEDICARE, OTHER, SELFPAY ==
[2018-05-26 11:12] VITALS: BMI 29.5
[2018-05-26 11:42] LABS: Basophils % 0.2 % (0.1-2.0); Eosinophils % 0.7 % (0.1-12.0); Hematocrit 40.6 % (42.0-52.0); Hemoglobin 13.7 g/dL (14.1-18.0); Lymphocytes % 89.2 % (10-50); Mean Corpuscular HGB Conc 33.8 g/dL (31.8-35.4); Mean Corpuscular Volume 109.5 fl (80-94); Mean Platelet Volume 10.1 fl (7.4-10.4); Monocytes # 0.1 K/mm3 (0.1-1.0); Monocytes % 2.8 % (1.7-9.3); Neutrophils # 0.2 K/mm3 (1.8-7.8); Platelet Count 61 K/mm3 (142-424); Red Blood Count 3.71 M/mm3 (4.60-6.20); Red Cell Distribution Width 16.5 % (11.5-17.5); White Blood Count 2.3 K/mm3 (4.8-10.8)
[2018-05-26 11:43] LABS: MANUAL DIFFERENTIAL MANUAL DIFFERENTIAL (MANUAL DIFF); Neutrophils % 7.1 % (37.0-80.0)
[2018-05-26 11:58] LABS: Alanine Aminotransferase 36 U/L (12-78); Albumin Level 3.5 gm/dL (3.4-5.0); Alkaline Phosphatase 49 U/L (46-116); Anion Gap 10.6 mEq/L (5-15); Aspartate Amino Transferase 23 U/L (15-37); Bilirubin,Total 0.5 mg/dL (0.2-1.0); Blood Urea Nitrogen 19 mg/dL (7-18); Calcium 9.4 mg/dL (8.5-10.1); Carbon Dioxide 31 mmol/L (21.0-32.0); Chloride 105 mmol/L (98-107); Creatinine Clearance Estimated 87 mL/min (50-200); Creatinine,Serum 0.79 mg/dL (0.70-1.30); Estimated Glomerular Filt Rate 96 ml/min (>60); GFR (African American) 116 ML/MIN (>60); Globulin 3.4 gm/dl (1.3-3.2); Glucose 105 mg/dL (74-106); Potassium 3.6 mmoL/L (3.5-5.1); Sodium 143 mmol/L (136-145); Total Protein,Serum 6.9 gm/dL (6.4-8.2)
[2018-05-26 12:07] LABS: Lymphocytes % 77 % (10-50); Macrocytosis 2+; Monocytes % 2 % (2-9); Neutrophils % 8 % (42-76); Platelet Estimate Normal; Total Cells Counted 100
== END 2018-05-26 12:25 | disposition home or self-care (01) ==
LOC: INF 11:13
PROVIDERS: Visit Provider Internal Medicine Medical Oncology
DX: C92.00 Acute myeloblastic leukemia, not having achieved remission (principal)
CPT/HCPCS: 80053; 85007; 85025; J1642

== ENCOUNTER 2018-05-28 09:10 | Outpatient (CLI) | payer MEDICARE, OTHER, SELFPAY ==
[2018-05-28 09:17] VITALS: BMI 30.1
[2018-05-28 09:43] LABS: Basophils % 0.1 % (0.1-2.0); Eosinophils % 0.8 % (0.1-12.0); Hematocrit 39.3 % (42.0-52.0); Hemoglobin 13.4 g/dL (14.1-18.0); Lymphocytes # 1.7 K/mm3 (0.7-4.5); Lymphocytes % 88.9 % (10-50); Mean Corpuscular Hemoglobin 37.8 pg (27.0-31.2); Mean Corpuscular Volume 111.3 fl (80-94); Mean Platelet Volume 10.3 fl (7.4-10.4); Monocytes % 2.2 % (1.7-9.3); Neutrophils # 0.2 K/mm3 (1.8-7.8); Platelet Count 61 K/mm3 (142-424); Red Blood Count 3.53 M/mm3 (4.60-6.20); Red Cell Distribution Width 16.5 % (11.5-17.5); White Blood Count 1.9 K/mm3 (4.8-10.8)
[2018-05-28 10:10] LABS: Neutrophils % 8.1 % (37.0-80.0)
[2018-05-28 10:11] LABS: MANUAL DIFFERENTIAL MANUAL DIFFERENTIAL (MANUAL DIFF)
[2018-05-28 10:22] LABS: Lymphocytes % 68 % (10-50); Monocytes % 4 % (2-9); Neutrophils % 10 % (42-76); Total Cells Counted 50
[2018-05-28 10:23] LABS: Macrocytosis 2+; Platelet Estimate Marked Decrease
--- NOTE | 2018-05-28 13:35 | PC.NURSE ---
1025 -CBC RESULTS FAXED TO DR HOUSTON'S OFFICE AT THIS TIME (ATTN TO ANDRESSA PRINCE.)
== END 2018-05-28 10:30 | disposition home or self-care (01) ==
LOC: INF 09:12
PROVIDERS: Visit Provider Internal Medicine Hematology & Oncology
DX: C92.00 Acute myeloblastic leukemia, not having achieved remission (principal)
CPT/HCPCS: 85007; 85025; J1642

== ENCOUNTER 2018-05-30 09:13 | Outpatient (CLI) | payer MEDICARE, OTHER, SELFPAY ==
[2018-05-30 09:15] VITALS: BMI 30.1
[2018-05-30 09:29] LABS: Basophils % 0.3 % (0.1-2.0); Eosinophils % 0.7 % (0.1-12.0); Hematocrit 38.5 % (42.0-52.0); Hemoglobin 13.1 g/dL (14.1-18.0); Lymphocytes # 1.6 K/mm3 (0.7-4.5); Lymphocytes % 88.5 % (10-50); Mean Corpuscular HGB Conc 33.9 g/dL (31.8-35.4); Mean Corpuscular Hemoglobin 38.4 pg (27.0-31.2); Mean Corpuscular Volume 113.1 fl (80-94); Mean Platelet Volume 9.7 fl (7.4-10.4); Monocytes % 2.1 % (1.7-9.3); Neutrophils # 0.2 K/mm3 (1.8-7.8); Red Blood Count 3.41 M/mm3 (4.60-6.20); Red Cell Distribution Width 16.8 % (11.5-17.5); White Blood Count 1.8 K/mm3 (4.8-10.8)
[2018-05-30 10:07] LABS: Neutrophils % 8.3 % (37.0-80.0)
[2018-05-30 10:08] LABS: Platelet Count 50 K/mm3 (142-424)
[2018-05-30 10:09] LABS: MANUAL DIFFERENTIAL MANUAL DIFFERENTIAL (MANUAL DIFF)
[2018-05-30 10:24] LABS: Lymphocytes % 74 % (10-50); Macrocytosis 2+; Monocytes % 4 % (2-9); Neutrophils % 10 % (42-76); Platelet Estimate Marked Decrease; Stomatocytes 1+; Total Cells Counted 50
== END 2018-05-30 10:20 | disposition home or self-care (01) ==
LOC: INF 09:13
PROVIDERS: Visit Provider Internal Medicine Medical Oncology
DX: C92.00 Acute myeloblastic leukemia, not having achieved remission (principal); Z45.2 Encounter for adjustment and management of vascular access device
CPT/HCPCS: 85007; 85025; J1642

== ENCOUNTER 2018-06-02 09:06 | Outpatient (CLI) | payer MEDICARE, OTHER, SELFPAY ==
[2018-06-02 09:06] VITALS: BMI 29.5
[2018-06-02 09:10] VITALS: BP 122/78; PULSE 68; RESP 20; TEMP 36.9; O2SAT 95
[2018-06-02 09:26] LABS: Basophils % 0.1 % (0.1-2.0); Eosinophils % 0.3 % (0.1-12.0); Hematocrit 36.8 % (42.0-52.0); Hemoglobin 12.6 g/dL (14.1-18.0); Lymphocytes # 1.5 K/mm3 (0.7-4.5); Lymphocytes % 92.2 % (10-50); Mean Corpuscular HGB Conc 34.3 g/dL (31.8-35.4); Mean Corpuscular Hemoglobin 38.1 pg (27.0-31.2); Mean Corpuscular Volume 110.9 fl (80-94); Mean Platelet Volume 10.4 fl (7.4-10.4); Monocytes % 1.3 % (1.7-9.3); Neutrophils # 0.1 K/mm3 (1.8-7.8); Red Blood Count 3.32 M/mm3 (4.60-6.20); Red Cell Distribution Width 16.5 % (11.5-17.5); White Blood Count 1.7 K/mm3 (4.8-10.8)
[2018-06-02 09:45] LABS: Platelet Count 39 K/mm3 (142-424)
[2018-06-02 09:47] LABS: MANUAL DIFFERENTIAL MANUAL DIFFERENTIAL (MANUAL DIFF)
[2018-06-02 09:49] LABS: Lymphocytes % 78 % (10-50); Monocytes % 4 % (2-9); Neutrophils % 6 % (42-76); Total Cells Counted 50
[2018-06-02 09:50] LABS: Macrocytosis 2+; Platelet Estimate Marked Decrease
[2018-06-02 10:15] VITALS: BP 112/74; PULSE 68; RESP 20; TEMP 36.9; O2SAT 95
== END 2018-06-02 10:10 | disposition home or self-care (01) ==
PROVIDERS: Visit Provider Internal Medicine Medical Oncology
DX: Z45.2 Encounter for adjustment and management of vascular access device (principal); C92.00 Acute myeloblastic leukemia, not having achieved remission
CPT/HCPCS: 85007; 85025; J1642

== ENCOUNTER 2018-06-04 09:25 | Outpatient (CLI) | payer MEDICARE, OTHER, SELFPAY ==
[2018-06-04 09:34] VITALS: BMI 30.1
[2018-06-04 09:50] LABS: Basophils % 0.6 % (0.1-2.0); Eosinophils % 0.3 % (0.1-12.0); Hematocrit 38.2 % (42.0-52.0); Lymphocytes # 1.5 K/mm3 (0.7-4.5); Lymphocytes % 89.8 % (10-50); Mean Corpuscular Hemoglobin 37.9 pg (27.0-31.2); Mean Corpuscular Volume 111.3 fl (80-94); Mean Platelet Volume 9.5 fl (7.4-10.4); Monocytes # 0.1 K/mm3 (0.1-1.0); Monocytes % 2.7 % (1.7-9.3); Neutrophils # 0.1 K/mm3 (1.8-7.8); Red Blood Count 3.43 M/mm3 (4.60-6.20); Red Cell Distribution Width 16.6 % (11.5-17.5); White Blood Count 1.7 K/mm3 (4.8-10.8)
[2018-06-04 09:58] LABS: Neutrophils % 6.6 % (37.0-80.0)
[2018-06-04 09:59] LABS: Platelet Count 40 K/mm3 (142-424)
[2018-06-04 10:00] LABS: MANUAL DIFFERENTIAL MANUAL DIFFERENTIAL (MANUAL DIFF)
[2018-06-04 10:03] LABS: Lymphocytes % 78 % (10-50); Neutrophils % 8 % (42-76); Total Cells Counted 50
[2018-06-04 10:04] LABS: Macrocytosis 2+; Platelet Estimate Marked Dec
== END 2018-06-04 10:25 | disposition home or self-care (01) ==
LOC: INF 09:32
PROVIDERS: Visit Provider Internal Medicine Hematology & Oncology
DX: C92.00 Acute myeloblastic leukemia, not having achieved remission (principal); Z45.2 Encounter for adjustment and management of vascular access device
CPT/HCPCS: 85007; 85025; J1642

== ENCOUNTER 2018-06-06 09:10 | Outpatient (CLI) | payer MEDICARE, OTHER, SELFPAY ==
[2018-06-06 09:15] VITALS: BMI 30.1
[2018-06-06 09:32] LABS: Basophils % 0.7 % (0.1-2.0); Eosinophils % 0.5 % (0.1-12.0); Hematocrit 36.8 % (42.0-52.0); Hemoglobin 12.4 g/dL (14.1-18.0); Lymphocytes # 1.5 K/mm3 (0.7-4.5); Lymphocytes % 90.8 % (10-50); Mean Corpuscular HGB Conc 33.8 g/dL (31.8-35.4); Mean Corpuscular Volume 109.4 fl (80-94); Monocytes % 1.8 % (1.7-9.3); Neutrophils # 0.1 K/mm3 (1.8-7.8); Red Blood Count 3.36 M/mm3 (4.60-6.20); Red Cell Distribution Width 16.3 % (11.5-17.5); White Blood Count 1.7 K/mm3 (4.8-10.8)
[2018-06-06 09:56] LABS: Neutrophils % 6.3 % (37.0-80.0); Platelet Count 41 K/mm3 (142-424)
[2018-06-06 09:57] LABS: MANUAL DIFFERENTIAL MANUAL DIFFERENTIAL (MANUAL DIFF)
[2018-06-06 10:03] LABS: Lymphocytes % 76 % (10-50); Monocytes % 2 % (2-9); Neutrophils % 6 % (42-76); Platelet Estimate Marked Decrease; Total Cells Counted 50
[2018-06-06 10:04] LABS: Macrocytosis 2+
== END 2018-06-06 10:20 | disposition home or self-care (01) ==
LOC: INF 09:13
PROVIDERS: Visit Provider Internal Medicine Hematology & Oncology
DX: Z45.2 Encounter for adjustment and management of vascular access device (principal); C92.00 Acute myeloblastic leukemia, not having achieved remission
CPT/HCPCS: 85007; 85025; J1642

== ENCOUNTER 2018-06-09 09:14 | Outpatient (CLI) | payer MEDICARE, OTHER, SELFPAY ==
[2018-06-09 09:16] VITALS: BMI 30.1
[2018-06-09 10:24] LABS: Basophils % 0.1 % (0.1-2.0); Eosinophils % 0.1 % (0.1-12.0); Hematocrit 34.4 % (42.0-52.0); Hemoglobin 12.2 g/dL (14.1-18.0); Lymphocytes # 1.5 K/mm3 (0.7-4.5); Lymphocytes % 89.9 % (10-50); Mean Corpuscular HGB Conc 35.6 g/dL (31.8-35.4); Mean Corpuscular Hemoglobin 38.8 pg (27.0-31.2); Mean Platelet Volume 8.2 fl (7.4-10.4); Monocytes % 2.3 % (1.7-9.3); Neutrophils # 0.1 K/mm3 (1.8-7.8); Red Blood Count 3.15 M/mm3 (4.60-6.20); Red Cell Distribution Width 16.3 % (11.5-17.5); White Blood Count 1.7 K/mm3 (4.8-10.8)
[2018-06-09 10:43] LABS: Neutrophils % 7.5 % (37.0-80.0)
[2018-06-09 10:45] LABS: MANUAL DIFFERENTIAL MANUAL DIFFERENTIAL (MANUAL DIFF); Platelet Count 37 K/mm3 (142-424)
[2018-06-09 11:08] LABS: Lymphocytes % 68 % (10-50); Monocytes % 8 % (2-9); Neutrophils % 8 % (42-76); Total Cells Counted 50
[2018-06-09 11:09] LABS: Platelet Estimate Marked Decrease
[2018-06-09 11:10] LABS: Macrocytosis 2+
== END 2018-06-09 10:30 | disposition home or self-care (01) ==
LOC: INF 09:14
PROVIDERS: Visit Provider Internal Medicine Hematology & Oncology
DX: C92.00 Acute myeloblastic leukemia, not having achieved remission (principal)
CPT/HCPCS: 85007; 85025

== ENCOUNTER 2018-06-11 09:22 | Outpatient (CLI) | payer MEDICARE, OTHER, SELFPAY ==
[2018-06-11 09:20] VITALS: BP 113/87; PULSE 63; RESP 18; TEMP 36.4; O2SAT 96
[2018-06-11 09:27] VITALS: BMI 29.9
[2018-06-11 09:43] LABS: Basophils % 0.4 % (0.1-2.0); Eosinophils % 0.7 % (0.1-12.0); Hematocrit 34.8 % (42.0-52.0); Lymphocytes # 1.4 K/mm3 (0.7-4.5); Lymphocytes % 86.1 % (10-50); Mean Corpuscular HGB Conc 34.6 g/dL (31.8-35.4); Mean Corpuscular Hemoglobin 38.2 pg (27.0-31.2); Mean Corpuscular Volume 110.4 fl (80-94); Mean Platelet Volume 10.8 fl (7.4-10.4); Monocytes # 0.1 K/mm3 (0.1-1.0); Monocytes % 3.1 % (1.7-9.3); Neutrophils # 0.2 K/mm3 (1.8-7.8); Red Blood Count 3.15 M/mm3 (4.60-6.20); Red Cell Distribution Width 16.6 % (11.5-17.5); White Blood Count 1.6 K/mm3 (4.8-10.8)
[2018-06-11 10:21] LABS: Neutrophils % 9.7 % (37.0-80.0); Platelet Count 32 K/mm3 (142-424)
[2018-06-11 10:23] LABS: MANUAL DIFFERENTIAL MANUAL DIFFERENTIAL (MANUAL DIFF)
[2018-06-11 10:34] LABS: Lymphocytes % 94 % (10-50); Monocytes % 2 % (2-9); Total Cells Counted 50
[2018-06-11 10:36] LABS: Macrocytosis 2+; Platelet Estimate Marked Decrease
== END 2018-06-11 10:45 | disposition home or self-care (01) ==
LOC: INF 09:22
PROVIDERS: Visit Provider Internal Medicine Hematology & Oncology
DX: Z45.2 Encounter for adjustment and management of vascular access device (principal); C92.00 Acute myeloblastic leukemia, not having achieved remission
CPT/HCPCS: 85007; 85025; J1642

== ENCOUNTER 2018-06-13 09:08 | Outpatient (CLI) | payer MEDICARE, OTHER, SELFPAY ==
[2018-06-13 09:10] VITALS: BMI 30.1
[2018-06-13 09:24] LABS: Basophils % 0.3 % (0.1-2.0); Eosinophils % 0.4 % (0.1-12.0); Hematocrit 33.9 % (42.0-52.0); Hemoglobin 11.9 g/dL (14.1-18.0); Lymphocytes # 1.4 K/mm3 (0.7-4.5); Lymphocytes % 92.9 % (10-50); Mean Corpuscular HGB Conc 35.1 g/dL (31.8-35.4); Mean Corpuscular Hemoglobin 38.2 pg (27.0-31.2); Mean Corpuscular Volume 108.8 fl (80-94); Mean Platelet Volume 9.8 fl (7.4-10.4); Monocytes % 1.6 % (1.7-9.3); Neutrophils # 0.1 K/mm3 (1.8-7.8); Red Blood Count 3.12 M/mm3 (4.60-6.20); Red Cell Distribution Width 16.5 % (11.5-17.5); White Blood Count 1.5 K/mm3 (4.8-10.8)
[2018-06-13 10:08] LABS: Neutrophils % 4.6 % (37.0-80.0); Platelet Count 27 K/mm3 (142-424)
[2018-06-13 10:10] LABS: MANUAL DIFFERENTIAL MANUAL DIFFERENTIAL (MANUAL DIFF)
[2018-06-13 10:14] LABS: Lymphocytes % 76 % (10-50); Macrocytosis 2+; Monocytes % 2 % (2-9); Neutrophils % 6 % (42-76); Platelet Estimate Marked Decrease; Total Cells Counted 50
== END 2018-06-13 10:45 | disposition home or self-care (01) ==
LOC: INF 09:08
PROVIDERS: Visit Provider Internal Medicine Hematology & Oncology
DX: Z45.2 Encounter for adjustment and management of vascular access device (principal); C92.00 Acute myeloblastic leukemia, not having achieved remission
CPT/HCPCS: 85007; 85025; J1642

== ENCOUNTER 2018-06-16 09:20 | Outpatient (CLI) | payer MEDICARE, OTHER, SELFPAY ==
[2018-06-16 09:30] VITALS: BP 105/62; PULSE 57; RESP 18; TEMP 36.5; O2SAT 94
[2018-06-16 09:42] LABS: Basophils % 0.1 % (0.1-2.0); Eosinophils % 0.3 % (0.1-12.0); Hematocrit 32.3 % (42.0-52.0); Hemoglobin 11.2 g/dL (14.1-18.0); Lymphocytes # 1.6 K/mm3 (0.7-4.5); Lymphocytes % 94.3 % (10-50); Mean Corpuscular HGB Conc 34.8 g/dL (31.8-35.4); Mean Corpuscular Hemoglobin 38.4 pg (27.0-31.2); Mean Corpuscular Volume 110.5 fl (80-94); Mean Platelet Volume 10.1 fl (7.4-10.4); Monocytes % 2.1 % (1.7-9.3); Neutrophils # 0.1 K/mm3 (1.8-7.8); Red Blood Count 2.92 M/mm3 (4.60-6.20); Red Cell Distribution Width 16.4 % (11.5-17.5); White Blood Count 1.7 K/mm3 (4.8-10.8)
[2018-06-16 10:05] LABS: Neutrophils % 3.2 % (37.0-80.0); Platelet Count 26 K/mm3 (142-424)
[2018-06-16 10:07] LABS: MANUAL DIFFERENTIAL MANUAL DIFFERENTIAL (MANUAL DIFF)
[2018-06-16 10:17] LABS: Lymphocytes % 64 % (10-50); Monocytes % 2 % (2-9); Neutrophils % 4 % (42-76); Total Cells Counted 50
[2018-06-16 10:18] LABS: Macrocytosis 2+; Platelet Estimate Marked Decrease
== END 2018-06-16 10:29 | disposition home or self-care (01) ==
LOC: INF 09:20
PROVIDERS: Visit Provider Internal Medicine Hematology & Oncology
DX: Z45.2 Encounter for adjustment and management of vascular access device (principal); C92.00 Acute myeloblastic leukemia, not having achieved remission
CPT/HCPCS: 85007; 85025; J1642

== ENCOUNTER 2018-06-18 09:10 | Outpatient (CLI) | payer MEDICARE, OTHER, SELFPAY ==
[2018-06-18 09:13] VITALS: BMI 30.1
[2018-06-18 09:27] LABS: Basophils % 0.1 % (0.1-2.0); Hematocrit 32.1 % (42.0-52.0); Hemoglobin 11.7 g/dL (14.1-18.0); Lymphocytes # 1.7 K/mm3 (0.7-4.5); Lymphocytes % 95.9 % (10-50); Mean Corpuscular HGB Conc 36.4 g/dL (31.8-35.4); Mean Corpuscular Hemoglobin 39.9 pg (27.0-31.2); Mean Corpuscular Volume 109.8 fl (80-94); Mean Platelet Volume 9.7 fl (7.4-10.4); Monocytes % 1.1 % (1.7-9.3); Neutrophils # 0.1 K/mm3 (1.8-7.8); Red Blood Count 2.93 M/mm3 (4.60-6.20); Red Cell Distribution Width 16.3 % (11.5-17.5); White Blood Count 1.7 K/mm3 (4.8-10.8)
[2018-06-18 10:16] LABS: Neutrophils % 2.9 % (37.0-80.0); Platelet Count 29 K/mm3 (142-424)
[2018-06-18 10:20] LABS: MANUAL DIFFERENTIAL MANUAL DIFFERENTIAL (MANUAL DIFF)
[2018-06-18 10:24] LABS: Lymphocytes % 62 % (10-50); Macrocytosis 2+; Monocytes % 2 % (2-9); Neutrophils % 4 % (42-76); Total Cells Counted 50
[2018-06-18 10:32] LABS: Ovalocytes 1+; Platelet Estimate Marked Decrease
[2018-06-18 10:33] LABS: Anisocytosis 1+
== END 2018-06-18 10:30 | disposition home or self-care (01) ==
LOC: INF 09:11
PROVIDERS: Visit Provider Internal Medicine Hematology & Oncology
DX: Z45.2 Encounter for adjustment and management of vascular access device (principal); C92.00 Acute myeloblastic leukemia, not having achieved remission
CPT/HCPCS: 85007; 85025; J1642

== ENCOUNTER 2018-06-20 09:08 | Outpatient (CLI) | payer MEDICARE, OTHER, SELFPAY ==
[2018-06-20 09:12] VITALS: BMI 30.1
[2018-06-20 09:30] LABS: Basophils % 0.3 % (0.1-2.0); Eosinophils % 0.2 % (0.1-12.0); Hematocrit 31.3 % (42.0-52.0); Hemoglobin 11.1 g/dL (14.1-18.0); Lymphocytes # 1.5 K/mm3 (0.7-4.5); Lymphocytes % 93.2 % (10-50); Mean Corpuscular HGB Conc 35.4 g/dL (31.8-35.4); Mean Corpuscular Hemoglobin 38.9 pg (27.0-31.2); Mean Corpuscular Volume 109.9 fl (80-94); Mean Platelet Volume 12.2 fl (7.4-10.4); Monocytes % 1.3 % (1.7-9.3); Neutrophils # 0.1 K/mm3 (1.8-7.8); Red Blood Count 2.85 M/mm3 (4.60-6.20); Red Cell Distribution Width 16.2 % (11.5-17.5); White Blood Count 1.6 K/mm3 (4.8-10.8)
[2018-06-20 09:39] LABS: MANUAL DIFFERENTIAL MANUAL DIFFERENTIAL (MANUAL DIFF); Neutrophils % 4.9 % (37.0-80.0); Platelet Count 28 K/mm3 (142-424)
[2018-06-20 09:42] LABS: Lymphocytes % 76 % (10-50); Neutrophils % 4 % (42-76); Platelet Estimate Marked Decrease; Total Cells Counted 50
[2018-06-20 09:43] LABS: Macrocytosis 2+
== END 2018-06-20 10:05 | disposition home or self-care (01) ==
LOC: INF 09:08
PROVIDERS: Visit Provider Internal Medicine Hematology & Oncology
DX: C92.60 Acute myeloid leukemia with 11q23-abnormality not having achieved remission (principal); Z45.2 Encounter for adjustment and management of vascular access device
CPT/HCPCS: 85007; 85025; J1642

== ENCOUNTER 2018-06-23 09:29 | Outpatient (CLI) | payer MEDICARE, OTHER, SELFPAY ==
[2018-06-23 09:20] VITALS: BP 94/45; PULSE 65; RESP 18; TEMP 36.8; O2SAT 98
[2018-06-23 09:30] VITALS: BMI 29.9
[2018-06-23 09:51] LABS: Basophils % 0.2 % (0.1-2.0); Eosinophils % 0.3 % (0.1-12.0); Hematocrit 27.5 % (42.0-52.0); Hemoglobin 10.1 g/dL (14.1-18.0); Lymphocytes # 1.3 K/mm3 (0.7-4.5); Lymphocytes % 95.5 % (10-50); Mean Corpuscular HGB Conc 36.6 g/dL (31.8-35.4); Mean Corpuscular Hemoglobin 38.8 pg (27.0-31.2); Mean Corpuscular Volume 105.9 fl (80-94); Monocytes % 0.8 % (1.7-9.3); Red Cell Distribution Width 15.8 % (11.5-17.5); White Blood Count 1.4 K/mm3 (4.8-10.8)
[2018-06-23 09:53] LABS: Neutrophils % 3.3 % (37.0-80.0)
[2018-06-23 10:02] LABS: Alanine Aminotransferase 28 U/L (12-78); Albumin/Globulin Ratio 0.9 (1.1-1.8); Alkaline Phosphatase 37 U/L (46-116); Anion Gap 15.7 mEq/L (5-15); Aspartate Amino Transferase 18 U/L (15-37); Bilirubin,Total 0.8 mg/dL (0.2-1.0); Blood Urea Nitrogen 26 mg/dL (7-18); Calcium 8.7 mg/dL (8.5-10.1); Carbon Dioxide 24 mmol/L (21.0-32.0); Chloride 107 mmol/L (98-107); Creatinine Clearance Estimated 75 mL/min (50-200); Creatinine,Serum 1.17 mg/dL (0.70-1.30); Estimated Glomerular Filt Rate 61 ml/min (>60); GFR (African American) 74 ML/MIN (>60); Globulin 3.3 gm/dl (1.3-3.2); Glucose 171 mg/dL (74-106); Potassium 3.7 mmoL/L (3.5-5.1); Sodium 143 mmol/L (136-145); Total Protein,Serum 6.3 gm/dL (6.4-8.2)
[2018-06-23 10:04] LABS: Platelet Count 23 K/mm3 (142-424)
[2018-06-23 10:06] LABS: MANUAL DIFFERENTIAL MANUAL DIFFERENTIAL (MANUAL DIFF)
[2018-06-23 10:08] LABS: Lymphocytes % 66 % (10-50); Macrocytosis 2+; Neutrophils % 6 % (42-76); Platelet Estimate Marked Decrease; Total Cells Counted 50
== END 2018-06-23 10:40 | disposition home or self-care (01) ==
LOC: INF 09:29
PROVIDERS: Visit Provider Internal Medicine Hematology & Oncology
DX: Z45.2 Encounter for adjustment and management of vascular access device (principal); C92.00 Acute myeloblastic leukemia, not having achieved remission
CPT/HCPCS: 80053; 85007; 85025; J1642

== ENCOUNTER 2018-06-25 09:03 | Outpatient (CLI) | payer MEDICARE, OTHER, SELFPAY ==
[2018-06-25 09:10] VITALS: BMI 29.9
[2018-06-25 09:38] LABS: Basophils % 0.4 % (0.1-2.0); Eosinophils % 0.2 % (0.1-12.0); Hematocrit 29.2 % (42.0-52.0); Hemoglobin 10.3 g/dL (14.1-18.0); Lymphocytes # 1.6 K/mm3 (0.7-4.5); Lymphocytes % 94.9 % (10-50); Mean Corpuscular HGB Conc 35.4 g/dL (31.8-35.4); Mean Corpuscular Hemoglobin 38.4 pg (27.0-31.2); Mean Corpuscular Volume 108.5 fl (80-94); Mean Platelet Volume 9.8 fl (7.4-10.4); Neutrophils # 0.1 K/mm3 (1.8-7.8); Red Blood Count 2.69 M/mm3 (4.60-6.20); Red Cell Distribution Width 15.9 % (11.5-17.5); White Blood Count 1.7 K/mm3 (4.8-10.8)
[2018-06-25 10:07] LABS: Neutrophils % 3.4 % (37.0-80.0); Platelet Count 23 K/mm3 (142-424)
[2018-06-25 10:11] LABS: MANUAL DIFFERENTIAL MANUAL DIFFERENTIAL (MANUAL DIFF)
[2018-06-25 10:13] LABS: Lymphocytes % 74 % (10-50); Monocytes % 2 % (2-9); Neutrophils % 4 % (42-76); Platelet Estimate Marked Decrease; Total Cells Counted 50
[2018-06-25 10:14] LABS: Macrocytosis 2+
== END 2018-06-25 10:40 | disposition home or self-care (01) ==
LOC: INF 09:03
PROVIDERS: Visit Provider Internal Medicine Hematology & Oncology
DX: Z45.2 Encounter for adjustment and management of vascular access device (principal); C92.00 Acute myeloblastic leukemia, not having achieved remission
CPT/HCPCS: 85007; 85025; J1642

== ENCOUNTER 2018-06-27 09:18 | Outpatient (CLI) | payer MEDICARE, OTHER, SELFPAY ==
[2018-06-27 09:20] VITALS: BMI 30.1
[2018-06-27 09:39] LABS: Basophils % 0.2 % (0.1-2.0); Eosinophils % 0.3 % (0.1-12.0); Hemoglobin 9.6 g/dL (14.1-18.0); Lymphocytes # 1.5 K/mm3 (0.7-4.5); Lymphocytes % 95.4 % (10-50); Mean Corpuscular HGB Conc 35.5 g/dL (31.8-35.4); Mean Corpuscular Hemoglobin 37.7 pg (27.0-31.2); Mean Platelet Volume 9.6 fl (7.4-10.4); Neutrophils # 0.1 K/mm3 (1.8-7.8); Red Blood Count 2.55 M/mm3 (4.60-6.20); Red Cell Distribution Width 15.5 % (11.5-17.5); White Blood Count 1.6 K/mm3 (4.8-10.8)
[2018-06-27 09:49] LABS: Alanine Aminotransferase 26 U/L (12-78); Albumin Level 3.1 gm/dL (3.4-5.0); Alkaline Phosphatase 38 U/L (46-116); Anion Gap 14.9 mEq/L (5-15); Aspartate Amino Transferase 18 U/L (15-37); Bilirubin,Total 0.8 mg/dL (0.2-1.0); Blood Urea Nitrogen 31 mg/dL (7-18); Calcium 8.7 mg/dL (8.5-10.1); Carbon Dioxide 25 mmol/L (21.0-32.0); Chloride 107 mmol/L (98-107); Creatinine Clearance Estimated 69 mL/min (50-200); Creatinine,Serum 1.28 mg/dL (0.70-1.30); Estimated Glomerular Filt Rate 55 ml/min (>60); GFR (African American) 67 ML/MIN (>60); Globulin 3.2 gm/dl (1.3-3.2); Glucose 160 mg/dL (74-106); Potassium 3.9 mmoL/L (3.5-5.1); Sodium 143 mmol/L (136-145); Total Protein,Serum 6.3 gm/dL (6.4-8.2)
[2018-06-27 09:51] LABS: Neutrophils % 3.1 % (37.0-80.0); Platelet Count 20 K/mm3 (142-424)
[2018-06-27 09:53] LABS: MANUAL DIFFERENTIAL MANUAL DIFFERENTIAL (MANUAL DIFF)
[2018-06-27 09:57] LABS: Lymphocytes % 76 % (10-50); Monocytes % 2 % (2-9); Neutrophils % 4 % (42-76); Platelet Estimate Marked Decrease; Total Cells Counted 50
[2018-06-27 09:58] LABS: Macrocytosis 2+
[2018-06-27 10:30] VITALS: BP 94/49; PULSE 61; RESP 18; TEMP 36.8; O2SAT 96
[2018-06-27 11:00] VITALS: BP 98/58; PULSE 56; RESP 18
[2018-06-27 11:30] VITALS: BP 92/54; PULSE 59; RESP 18
[2018-06-27 12:15] VITALS: BP 104/50; PULSE 56; RESP 18
--- NOTE | 2018-06-27 12:43 | PC.NURSE ---
Spoke with Dr. Yi's nurse Sonia in regards to patient not feeling well and low blood pressure. He is received a liter of NS per Dr. Monge. Awaiting call back from Sonia after she talks to Dr. Olsen ([phone]). Sonia called back around 1130, she hasn't heard from Dr. Yi and will call the patient/family back if anything new is requested. She just wanted to reiterate with patient/family to return to ED if he gets a fever about 100.4. Also called Dr. Sosa's office wanting parameter in regard to his b/p meds and b/p, if appropriate to hold any of the bp meds. Waiting to hear back from Dr. Sosa. Patient and family left and will call them back.
--- NOTE | 2018-06-27 13:14 | PC.NURSE ---
If fever is 100.4 or greater go to ED for evaluation.
== END 2018-06-27 12:15 | disposition home or self-care (01) ==
LOC: INF 09:18
PROVIDERS: Visit Provider Internal Medicine Hematology & Oncology
DX: Z45.2 Encounter for adjustment and management of vascular access device (principal); C92.00 Acute myeloblastic leukemia, not having achieved remission
CPT/HCPCS: 80053; 85007; 85025; 96360; J1642

== ENCOUNTER 2018-06-30 09:25 | Outpatient (CLI) | payer MEDICARE, OTHER, SELFPAY ==
[2018-06-30] VITALS (10 sets, daily range): BP systolic 102–118; BP diastolic 55–74; PULSE 59–68; RESP 16–20; TEMP 36.6–36.9; O2SAT 95–98; BMI 30.1
[2018-06-30 09:46] LABS: Basophils % 0.1 % (0.1-2.0); Eosinophils % 0.3 % (0.1-12.0); Hematocrit 24.4 % (42.0-52.0); Hemoglobin 8.9 g/dL (14.1-18.0); Lymphocytes # 1.5 K/mm3 (0.7-4.5); Lymphocytes % 92.8 % (10-50); Mean Corpuscular HGB Conc 36.5 g/dL (31.8-35.4); Mean Corpuscular Hemoglobin 39.2 pg (27.0-31.2); Mean Corpuscular Volume 107.4 fl (80-94); Mean Platelet Volume 11.4 fl (7.4-10.4); Monocytes % 2.1 % (1.7-9.3); Neutrophils # 0.1 K/mm3 (1.8-7.8); Red Blood Count 2.27 M/mm3 (4.60-6.20); Red Cell Distribution Width 15.6 % (11.5-17.5); White Blood Count 1.6 K/mm3 (4.8-10.8)
[2018-06-30 09:48] LABS: Neutrophils % 4.7 % (37.0-80.0)
[2018-06-30 09:59] LABS: Alanine Aminotransferase 25 U/L (12-78); Alkaline Phosphatase 39 U/L (46-116); Anion Gap 14.8 mEq/L (5-15); Aspartate Amino Transferase 13 U/L (15-37); Bilirubin,Total 0.8 mg/dL (0.2-1.0); Blood Urea Nitrogen 26 mg/dL (7-18); Calcium 8.4 mg/dL (8.5-10.1); Carbon Dioxide 24 mmol/L (21.0-32.0); Chloride 108 mmol/L (98-107); Creatinine Clearance Estimated 70 mL/min (50-200); Creatinine,Serum 1.27 mg/dL (0.70-1.30); Estimated Glomerular Filt Rate 56 ml/min (>60); GFR (African American) 67 ML/MIN (>60); Glucose 165 mg/dL (74-106); Potassium 3.8 mmoL/L (3.5-5.1); Sodium 143 mmol/L (136-145)
[2018-06-30 10:04] LABS: Platelet Count 17 K/mm3 (142-424)
[2018-06-30 10:06] LABS: MANUAL DIFFERENTIAL MANUAL DIFFERENTIAL (MANUAL DIFF)
[2018-06-30 10:15] LABS: Lymphocytes % 74 % (10-50); Macrocytosis 2+; Monocytes % 4 % (2-9); Neutrophils % 4 % (42-76); Platelet Estimate Normal; Total Cells Counted 50
--- NOTE | 2018-06-30 14:18 | PC.NURSE ---
1000: Per MD order, 1 unit of platelets need to be infused. Pt's platelets are [id number]. Patient and are going home and will return with platelets are at [facility].
[2018-06-30 18:27] LABS: Platelet Count 64 K/mm3 (142-424)
== END 2018-06-30 18:15 | disposition home or self-care (01) ==
LOC: INF 09:25
PROVIDERS: Visit Provider Internal Medicine Hematology & Oncology
DX: C92.00 Acute myeloblastic leukemia, not having achieved remission (principal); Z45.2 Encounter for adjustment and management of vascular access device
CPT/HCPCS: 36430; 80053; 85007; 85025; 85049; 86900; 86901; J1642; P9034

== ENCOUNTER 2018-07-02 09:14 | Outpatient (CLI) | payer MEDICARE, OTHER, SELFPAY ==
[2018-07-02 09:16] VITALS: BMI 30.1
[2018-07-02 09:28] LABS: Basophils % 0.3 % (0.1-2.0); Eosinophils % 0.3 % (0.1-12.0); Hematocrit 24.2 % (42.0-52.0); Hemoglobin 8.6 g/dL (14.1-18.0); Lymphocytes # 1.5 K/mm3 (0.7-4.5); Lymphocytes % 92.7 % (10-50); Mean Corpuscular HGB Conc 35.6 g/dL (31.8-35.4); Mean Corpuscular Hemoglobin 38.5 pg (27.0-31.2); Mean Corpuscular Volume 108.3 fl (80-94); Mean Platelet Volume 8.7 fl (7.4-10.4); Monocytes % 1.2 % (1.7-9.3); Neutrophils # 0.1 K/mm3 (1.8-7.8); Platelet Count 52 K/mm3 (142-424); Red Blood Count 2.24 M/mm3 (4.60-6.20); Red Cell Distribution Width 15.5 % (11.5-17.5); White Blood Count 1.6 K/mm3 (4.8-10.8)
[2018-07-02 09:50] LABS: Neutrophils % 5.6 % (37.0-80.0)
[2018-07-02 09:51] LABS: MANUAL DIFFERENTIAL MANUAL DIFFERENTIAL (MANUAL DIFF)
[2018-07-02 09:53] LABS: Lymphocytes % 84 % (10-50); Macrocytosis 2+; Monocytes % 2 % (2-9); Neutrophils % 4 % (42-76); Platelet Estimate Marked Decrease; Total Cells Counted 50
[2018-07-02 10:30] VITALS: BP 96/49; PULSE 68
== END 2018-07-02 10:30 | disposition home or self-care (01) ==
LOC: INF 09:14
PROVIDERS: Visit Provider Internal Medicine Hematology & Oncology
DX: Z45.2 Encounter for adjustment and management of vascular access device (principal); C92.00 Acute myeloblastic leukemia, not having achieved remission
CPT/HCPCS: 85007; 85025; J1642

== ENCOUNTER 2018-07-04 09:18 | Outpatient (CLI) | payer MEDICARE, OTHER, SELFPAY ==
[2018-07-04 09:00] VITALS: BP 105/55; PULSE 68; RESP 20; TEMP 36.9
[2018-07-04 09:11] VITALS: BMI 29.9
[2018-07-04 09:55] LABS: Basophils % 0.1 % (0.1-2.0); Eosinophils % 0.3 % (0.1-12.0); Lymphocytes # 1.2 K/mm3 (0.7-4.5); Lymphocytes % 93.4 % (10-50); Mean Corpuscular HGB Conc 35.5 g/dL (31.8-35.4); Mean Corpuscular Hemoglobin 37.9 pg (27.0-31.2); Monocytes % 1.5 % (1.7-9.3); Neutrophils # 0.1 K/mm3 (1.8-7.8); Red Cell Distribution Width 15.5 % (11.5-17.5); White Blood Count 1.3 K/mm3 (4.8-10.8)
[2018-07-04 10:20] LABS: Alanine Aminotransferase 26 U/L (12-78); Alkaline Phosphatase 35 U/L (46-116); Anion Gap 12.1 mEq/L (5-15); Aspartate Amino Transferase 14 U/L (15-37); Bilirubin,Total 0.8 mg/dL (0.2-1.0); Blood Urea Nitrogen 26 mg/dL (7-18); Calcium 7.6 mg/dL (8.5-10.1); Carbon Dioxide 25 mmol/L (21.0-32.0); Chloride 108 mmol/L (98-107); Creatinine Clearance Estimated 77 mL/min (50-200); Creatinine,Serum 1.14 mg/dL (0.70-1.30); Estimated Glomerular Filt Rate 63 ml/min (>60); GFR (African American) 76 ML/MIN (>60); Globulin 3.1 gm/dl (1.3-3.2); Glucose 150 mg/dL (74-106); Potassium 4.1 mmoL/L (3.5-5.1); Sodium 141 mmol/L (136-145); Total Protein,Serum 6.1 gm/dL (6.4-8.2)
[2018-07-04 10:36] LABS: Hematocrit 22.5 % (42.0-52.0); Neutrophils % 4.7 % (37.0-80.0); Platelet Count 36 K/mm3 (142-424)
[2018-07-04 10:37] LABS: MANUAL DIFFERENTIAL MANUAL DIFFERENTIAL (MANUAL DIFF)
[2018-07-04 10:45] LABS: Lymphocytes % 68 % (10-50); Monocytes % 4 % (2-9); Neutrophils % 8 % (42-76); Total Cells Counted 50
[2018-07-04 10:46] LABS: Macrocytosis 2+
[2018-07-04 10:47] LABS: Anisocytosis 1+; Platelet Estimate Normal
== END 2018-07-04 10:10 | disposition home or self-care (01) ==
LOC: INF 09:18
PROVIDERS: Visit Provider Internal Medicine Medical Oncology
DX: C92.00 Acute myeloblastic leukemia, not having achieved remission (principal)
CPT/HCPCS: 80053; 85007; 85025; J1642

== ENCOUNTER 2018-07-07 09:20 | Outpatient (CLI) | payer MEDICARE, OTHER, SELFPAY ==
[2018-07-07 09:43] VITALS: BP 133/65; PULSE 65; RESP 18; TEMP 36.4; O2SAT 98
[2018-07-07 09:43] LABS: Eosinophils % 0.4 % (0.1-12.0); Lymphocytes # 1.4 K/mm3 (0.7-4.5); Lymphocytes % 92.1 % (10-50); Mean Corpuscular HGB Conc 35.9 g/dL (31.8-35.4); Mean Corpuscular Hemoglobin 38.1 pg (27.0-31.2); Mean Corpuscular Volume 106.3 fl (80-94); Mean Platelet Volume 9.4 fl (7.4-10.4); Monocytes % 1.7 % (1.7-9.3); Neutrophils # 0.1 K/mm3 (1.8-7.8); Red Blood Count 2.06 M/mm3 (4.60-6.20); Red Cell Distribution Width 15.3 % (11.5-17.5); White Blood Count 1.5 K/mm3 (4.8-10.8)
[2018-07-07 09:55] LABS: Alanine Aminotransferase 27 U/L (12-78); Alkaline Phosphatase 38 U/L (46-116); Anion Gap 13.6 mEq/L (5-15); Aspartate Amino Transferase 12 U/L (15-37); Bilirubin,Total 0.8 mg/dL (0.2-1.0); Blood Urea Nitrogen 23 mg/dL (7-18); Calcium 8.3 mg/dL (8.5-10.1); Carbon Dioxide 24 mmol/L (21.0-32.0); Chloride 107 mmol/L (98-107); Creatinine Clearance Estimated 78 mL/min (50-200); Creatinine,Serum 1.14 mg/dL (0.70-1.30); Estimated Glomerular Filt Rate 63 ml/min (>60); GFR (African American) 76 ML/MIN (>60); Globulin 3.1 gm/dl (1.3-3.2); Glucose 172 mg/dL (74-106); Potassium 3.6 mmoL/L (3.5-5.1); Sodium 141 mmol/L (136-145); Total Protein,Serum 6.1 gm/dL (6.4-8.2)
[2018-07-07 10:05] LABS: Neutrophils % 5.8 % (37.0-80.0)
[2018-07-07 10:07] LABS: Hematocrit 21.9 % (42.0-52.0); Hemoglobin 7.9 g/dL (14.1-18.0); Platelet Count 22 K/mm3 (142-424)
[2018-07-07 10:08] LABS: MANUAL DIFFERENTIAL MANUAL DIFFERENTIAL (MANUAL DIFF)
[2018-07-07 10:09] LABS: Lymphocytes % 94 % (10-50); Monocytes % 2 % (2-9); Neutrophils % 2 % (42-76); Total Cells Counted 50
[2018-07-07 10:10] LABS: Macrocytosis 2+; Platelet Estimate Marked Decrease
== END 2018-07-07 10:27 | disposition home or self-care (01) ==
LOC: INF 09:20
PROVIDERS: Visit Provider Internal Medicine Hematology & Oncology
DX: Z45.2 Encounter for adjustment and management of vascular access device (principal); C92.00 Acute myeloblastic leukemia, not having achieved remission
CPT/HCPCS: 80053; 85007; 85025; J1642

== ENCOUNTER → 2018-07-09 08:41 | Outpatient (CLI) | payer MEDICARE, OTHER, SELFPAY ==
[2018-07-09] VITALS (8 sets, daily range): BP systolic 113–130; BP diastolic 54–69; PULSE 60–73; RESP 14–18; TEMP 36.4–37; O2SAT 90–97; BMI 29.9
[2018-07-09 09:07] LABS: Basophils % 0.1 % (0.1-2.0); Eosinophils % 0.8 % (0.1-12.0); Lymphocytes # 1.4 K/mm3 (0.7-4.5); Lymphocytes % 88.9 % (10-50); Mean Corpuscular HGB Conc 35.1 g/dL (31.8-35.4); Mean Corpuscular Hemoglobin 37.7 pg (27.0-31.2); Mean Corpuscular Volume 107.4 fl (80-94); Mean Platelet Volume 9.3 fl (7.4-10.4); Monocytes % 2.4 % (1.7-9.3); Neutrophils # 0.1 K/mm3 (1.8-7.8); Red Blood Count 1.99 M/mm3 (4.60-6.20); Red Cell Distribution Width 15.1 % (11.5-17.5); White Blood Count 1.5 K/mm3 (4.8-10.8)
[2018-07-09 09:30] LABS: Neutrophils % 7.8 % (37.0-80.0)
[2018-07-09 09:44] LABS: Hematocrit 21.3 % (42.0-52.0); Hemoglobin 7.5 g/dL (14.1-18.0); Platelet Count 15 K/mm3 (142-424)
[2018-07-09 09:46] LABS: MANUAL DIFFERENTIAL MANUAL DIFFERENTIAL (MANUAL DIFF)
[2018-07-09 09:48] LABS: Lymphocytes % 68 % (10-50); Macrocytosis 2+; Monocytes % 2 % (2-9); Neutrophils % 8 % (42-76); Platelet Estimate Marked Decrease; Total Cells Counted 50
--- NOTE | 2018-07-09 16:35 | PC.NURSE ---
07/09/18 @ 0930-lab staff laurie called with critical and notification results on labs performed today. hgb-7.5, hct-21.3, plt-15. md made aware of results, order noted to proceed with standing orders per md. pt will not need a blood transfusion today as hgb-7.5, hct-21.3. however, pt will need a platelet transfusion as plt count is 15,000. platelet transfusion order submitted after explaining the poc with pt/, additional labs drawn in the presence of lab staff for type and crossmatch. spoke with laurie from lab and it was determined that once the type and cross was complete, the platelets could then be submitted for order through [facility] in [place]. Once the courrier arrives from [facility] to [facility] with the platelets-nursing would be notified so that the pt could return and get the transfusion. pt/ made aware of plan and agreeable.
--- NOTE | 2018-07-09 16:49 | PC.NURSE ---
07/08/18-1050 lab staff called back and stated that the platelets were ordered and expected to be delivered sometime this afternoon around 4 or 430 pm. pt/ made aware of time frame and was told that they could leave and return for treatment when called, once platelets had arrived to [facility]. pt able to ambulate out of facility with at this time and will return once called.
--- NOTE | 2018-07-09 17:47 | PC.NURSE ---
07/09/18 @ 1058-contacted house detective, Rossy Goldstein RN-explained that this pt needs to return for a platelet transfusion tonight and that the keyboard action assembler delivering the platelets have yet to arrive at [facility]. Rossy agreeable to take over for this situation at this time and to complete the task needed. Spoke with lab staff karin and made them aware to contact house detective as soon as the platelets arrive to the facility. Also spoke with pt's kyra, explained the plan of care for the pt and the change management director in staff.
--- NOTE | 2018-07-09 21:01 | PC.NURSE ---
Pt tolerated admin of platelets well. Currently sitting up in room eating dinner w/ no complaints voiced. Port flushed w/ NS, blood return observed. Call light w/in reach and at side.
[2018-07-09 21:35] LABS: Eosinophils % 0.8 % (0.1-12.0); Lymphocytes # 1.5 K/mm3 (0.7-4.5); Lymphocytes % 91.1 % (10-50); Mean Corpuscular HGB Conc 35.6 g/dL (31.8-35.4); Mean Corpuscular Hemoglobin 38.1 pg (27.0-31.2); Mean Corpuscular Volume 107.1 fl (80-94); Mean Platelet Volume 7.7 fl (7.4-10.4); Neutrophils # 0.1 K/mm3 (1.8-7.8); Platelet Count 57 K/mm3 (142-424); Red Blood Count 1.94 M/mm3 (4.60-6.20); Red Cell Distribution Width 15.2 % (11.5-17.5); White Blood Count 1.6 K/mm3 (4.8-10.8)
[2018-07-09 21:37] LABS: Neutrophils % 6.1 % (37.0-80.0)
[2018-07-09 21:38] LABS: Hematocrit 20.7 % (42.0-52.0); Hemoglobin 7.4 g/dL (14.1-18.0)
[2018-07-09 21:40] LABS: MANUAL DIFFERENTIAL MANUAL DIFFERENTIAL (MANUAL DIFF)
--- NOTE | 2018-07-09 22:01 | PC.NURSE ---
Fax w/ critical lab values sent to Jyotsna Martínez RN.
[2018-07-09 22:13] LABS: Lymphocytes % 78 % (10-50); Macrocytosis 1+; Neutrophils % 22 % (42-76); Ovalocytes 1+; Platelet Estimate Marked Decrease; Total Cells Counted 50
== END ==
PROVIDERS: Visit Provider Internal Medicine Hematology & Oncology
DX: C92.00 Acute myeloblastic leukemia, not having achieved remission (principal)
CPT/HCPCS: 36430; 85007; 85025; 86900; 86901; G0463; P9034

== ENCOUNTER → 2018-07-11 09:03 | Outpatient (CLI) | payer MEDICARE, OTHER, SELFPAY ==
[2018-07-11 09:03] VITALS: BMI 29.9
[2018-07-11 09:22] LABS: Basophils % 0.1 % (0.1-2.0); Eosinophils % 0.7 % (0.1-12.0); Lymphocytes # 1.4 K/mm3 (0.7-4.5); Lymphocytes % 87.5 % (10-50); Mean Corpuscular HGB Conc 35.7 g/dL (31.8-35.4); Mean Corpuscular Hemoglobin 37.6 pg (27.0-31.2); Mean Corpuscular Volume 105.3 fl (80-94); Mean Platelet Volume 7.9 fl (7.4-10.4); Monocytes % 2.7 % (1.7-9.3); Neutrophils # 0.1 K/mm3 (1.8-7.8); Red Blood Count 1.94 M/mm3 (4.60-6.20); White Blood Count 1.6 K/mm3 (4.8-10.8)
[2018-07-11 09:58] LABS: Hematocrit 20.4 % (42.0-52.0); Hemoglobin 7.3 g/dL (14.1-18.0)
[2018-07-11 09:59] LABS: Neutrophils % 8.9 % (37.0-80.0); Platelet Count 36 K/mm3 (142-424)
[2018-07-11 10:01] LABS: MANUAL DIFFERENTIAL MANUAL DIFFERENTIAL (MANUAL DIFF)
[2018-07-11 10:31] LABS: Lymphocytes % 52 % (10-50); Macrocytosis 2+; Monocytes % 2 % (2-9); Neutrophils % 4 % (42-76); Platelet Estimate Marked Decrease; Total Cells Counted 50
[2018-07-11 15:25] VITALS: BP 111/62; PULSE 66; RESP 20; TEMP 36.9; O2SAT 95
== END ==
PROVIDERS: Visit Provider Internal Medicine Hematology & Oncology
DX: Z45.2 Encounter for adjustment and management of vascular access device (principal); C92.00 Acute myeloblastic leukemia, not having achieved remission
CPT/HCPCS: 36415; 85007; 85025; J1642

== ENCOUNTER 2018-07-14 08:59 | Outpatient (CLI) | payer MEDICARE, OTHER, SELFPAY ==
[2018-07-14 09:02] VITALS: BMI 29.9
[2018-07-14 09:21] LABS: Basophils % 0.4 % (0.1-2.0); Eosinophils % 1.2 % (0.1-12.0); Lymphocytes # 1.4 K/mm3 (0.7-4.5); Lymphocytes % 87.5 % (10-50); Mean Corpuscular HGB Conc 36.2 g/dL (31.8-35.4); Mean Corpuscular Hemoglobin 38.6 pg (27.0-31.2); Mean Corpuscular Volume 106.5 fl (80-94); Mean Platelet Volume 9.1 fl (7.4-10.4); Monocytes % 2.4 % (1.7-9.3); Neutrophils # 0.1 K/mm3 (1.8-7.8); Red Blood Count 1.84 M/mm3 (4.60-6.20); Red Cell Distribution Width 15.1 % (11.5-17.5); White Blood Count 1.6 K/mm3 (4.8-10.8)
[2018-07-14 09:39] LABS: Hematocrit 19.6 % (42.0-52.0); Hemoglobin 7.1 g/dL (14.1-18.0); Neutrophils % 8.5 % (37.0-80.0)
[2018-07-14 09:40] LABS: Alanine Aminotransferase 27 U/L (12-78); Albumin/Globulin Ratio 0.9 (1.1-1.8); Alkaline Phosphatase 42 U/L (46-116); Anion Gap 12.7 mEq/L (5-15); Aspartate Amino Transferase 14 U/L (15-37); Blood Urea Nitrogen 21 mg/dL (7-18); Carbon Dioxide 24 mmol/L (21.0-32.0); Chloride 107 mmol/L (98-107); Creatinine Clearance Estimated 79 mL/min (50-200); Creatinine,Serum 1.11 mg/dL (0.70-1.30); Estimated Glomerular Filt Rate 65 ml/min (>60); GFR (African American) 79 ML/MIN (>60); Globulin 3.3 gm/dl (1.3-3.2); Glucose 166 mg/dL (74-106); MANUAL DIFFERENTIAL MANUAL DIFFERENTIAL (MANUAL DIFF); Platelet Count 23 K/mm3 (142-424); Potassium 3.7 mmoL/L (3.5-5.1); Sodium 140 mmol/L (136-145); Total Protein,Serum 6.3 gm/dL (6.4-8.2)
[2018-07-14 09:44] LABS: Lymphocytes % 74 % (10-50); Monocytes % 6 % (2-9); Neutrophils % 18 % (42-76); Ovalocytes 2+; Platelet Estimate Moderate Decrease; Total Cells Counted 50
[2018-07-14 09:45] LABS: Macrocytosis 2+
== END 2018-07-14 10:00 | disposition home or self-care (01) ==
LOC: INF 08:59
PROVIDERS: Visit Provider Internal Medicine Hematology & Oncology
DX: Z45.2 Encounter for adjustment and management of vascular access device (principal); C92.00 Acute myeloblastic leukemia, not having achieved remission
CPT/HCPCS: 36415; 80053; 85007; 85025; J1642

== ENCOUNTER 2018-07-16 08:56 | Outpatient (CLI) | payer MEDICARE, OTHER, SELFPAY ==
[2018-07-16 09:00] VITALS: BMI 29.9
[2018-07-16 09:05] VITALS: BP 112/55; PULSE 71; RESP 18; TEMP 36.7; O2SAT 96
[2018-07-16 09:14] LABS: Basophils % 0.2 % (0.1-2.0); Eosinophils % 1.2 % (0.1-12.0); Lymphocytes # 1.5 K/mm3 (0.7-4.5); Lymphocytes % 86.6 % (10-50); Mean Corpuscular HGB Conc 35.7 g/dL (31.8-35.4); Mean Corpuscular Hemoglobin 37.6 pg (27.0-31.2); Mean Corpuscular Volume 105.4 fl (80-94); Mean Platelet Volume 8.7 fl (7.4-10.4); Monocytes % 2.4 % (1.7-9.3); Neutrophils # 0.2 K/mm3 (1.8-7.8); Red Blood Count 1.72 M/mm3 (4.60-6.20); White Blood Count 1.7 K/mm3 (4.8-10.8)
[2018-07-16 09:48] LABS: Hematocrit 18.1 % (42.0-52.0); Hemoglobin 6.5 g/dL (14.1-18.0); Neutrophils % 9.5 % (37.0-80.0); Platelet Count 14 K/mm3 (142-424)
[2018-07-16 09:49] LABS: MANUAL DIFFERENTIAL MANUAL DIFFERENTIAL (MANUAL DIFF)
[2018-07-16 10:08] LABS: Lymphocytes % 76 % (10-50); Macrocytosis 1+; Monocytes % 8 % (2-9); Neutrophils % 10 % (42-76); Platelet Estimate Marked Decrease; Total Cells Counted 50
[2018-07-16 10:09] LABS: Anisocytosis 1+; Ovalocytes 1+; Tear Drop Cells 1+
== END 2018-07-16 10:10 | disposition home or self-care (01) ==
LOC: INF 08:56
PROVIDERS: Visit Provider Internal Medicine Hematology & Oncology
DX: Z45.2 Encounter for adjustment and management of vascular access device (principal); C92.00 Acute myeloblastic leukemia, not having achieved remission
CPT/HCPCS: 85007; 85025; 86850; J1642

== ENCOUNTER 2018-07-17 08:34 | Outpatient (CLI) | payer MEDICARE, OTHER, SELFPAY ==
[2018-07-17] VITALS (26 sets, daily range): BP systolic 97–152; BP diastolic 50–80; PULSE 59–72; RESP 18; TEMP 36.4–36.8; O2SAT 96–98; BMI 29.9
[2018-07-17 14:38] LABS: Basophils % 0.3 % (0.1-2.0); Eosinophils % 0.6 % (0.1-12.0); Lymphocytes # 1.3 K/mm3 (0.7-4.5); Lymphocytes % 85.3 % (10-50); Mean Corpuscular HGB Conc 37.1 g/dL (31.8-35.4); Mean Corpuscular Hemoglobin 35.5 pg (27.0-31.2); Mean Corpuscular Volume 95.8 fl (80-94); Mean Platelet Volume 8.1 fl (7.4-10.4); Monocytes % 2.4 % (1.7-9.3); Neutrophils # 0.2 K/mm3 (1.8-7.8); Red Blood Count 2.17 M/mm3 (4.60-6.20); Red Cell Distribution Width 19.2 % (11.5-17.5); White Blood Count 1.6 K/mm3 (4.8-10.8)
[2018-07-17 14:48] LABS: Alanine Aminotransferase 28 U/L (12-78); Albumin Level 2.8 gm/dL (3.4-5.0); Albumin/Globulin Ratio 0.8 (1.1-1.8); Alkaline Phosphatase 44 U/L (46-116); Anion Gap 12.8 mEq/L (5-15); Aspartate Amino Transferase 15 U/L (15-37); Bilirubin,Total 1.1 mg/dL (0.2-1.0); Blood Urea Nitrogen 18 mg/dL (7-18); Calcium 8.3 mg/dL (8.5-10.1); Carbon Dioxide 26 mmol/L (21.0-32.0); Chloride 106 mmol/L (98-107); Creatinine Clearance Estimated 88 mL/min (50-200); Creatinine,Serum 0.86 mg/dL (0.70-1.30); Estimated Glomerular Filt Rate 87 ml/min (>60); GFR (African American) 105 ML/MIN (>60); Globulin 3.3 gm/dl (1.3-3.2); Glucose 156 mg/dL (74-106); Potassium 3.8 mmoL/L (3.5-5.1); Sodium 141 mmol/L (136-145); Total Protein,Serum 6.1 gm/dL (6.4-8.2)
[2018-07-17 15:43] LABS: Neutrophils % 11.4 % (37.0-80.0)
[2018-07-17 15:44] LABS: Hematocrit 20.8 % (42.0-52.0); Hemoglobin 7.7 g/dL (14.1-18.0)
[2018-07-17 15:45] LABS: Platelet Count 18 K/mm3 (142-424)
[2018-07-17 15:46] LABS: MANUAL DIFFERENTIAL MANUAL DIFFERENTIAL (MANUAL DIFF)
[2018-07-17 16:17] LABS: Lymphocytes % 56 % (10-50); Monocytes % 4 % (2-9); Neutrophils % 14 % (42-76); Platelet Estimate Marked Decrease; Total Cells Counted 50
[2018-07-17 16:26] LABS: Anisocytosis 1+; Macrocytosis 1+
== END 2018-07-17 15:00 | disposition home or self-care (01) ==
LOC: INF 08:34
PROVIDERS: Visit Provider Internal Medicine Hematology & Oncology
DX: C92.00 Acute myeloblastic leukemia, not having achieved remission (principal)
CPT/HCPCS: 36430; 80053; 85007; 85025; J1642; P9016; P9034

== ENCOUNTER → 2018-07-18 09:05 | Outpatient (CLI) | payer MEDICARE, OTHER, SELFPAY ==
[2018-07-18] VITALS (11 sets, daily range): BP systolic 100–117; BP diastolic 58–70; PULSE 55–68; RESP 18–62; TEMP 36.7–37.1; O2SAT 94–98; BMI 30.1
[2018-07-18 12:42] LABS: Platelet Count 20 K/mm3 (142-424)
== END ==
PROVIDERS: Visit Provider Internal Medicine Hematology & Oncology
DX: C92.00 Acute myeloblastic leukemia, not having achieved remission (principal)
CPT/HCPCS: 36430; 85049; J1642; P9034

== ENCOUNTER 2018-07-21 08:23 | Outpatient (CLI) | payer MEDICARE, OTHER, SELFPAY ==
[2018-07-21] VITALS (7 sets, daily range): BP systolic 105–131; BP diastolic 50–66; PULSE 64–70; RESP 18; TEMP 36.6–37.2; O2SAT 92; BMI 32.8
[2018-07-21 08:40] LABS: Basophils % 0.6 % (0.1-2.0); Eosinophils % 2.1 % (0.1-12.0); Lymphocytes # 1.7 K/mm3 (0.7-4.5); Lymphocytes % 83.6 % (10-50); Mean Corpuscular HGB Conc 37.2 g/dL (31.8-35.4); Mean Corpuscular Hemoglobin 36.1 pg (27.0-31.2); Mean Corpuscular Volume 97.1 fl (80-94); Mean Platelet Volume 9.6 fl (7.4-10.4); Monocytes # 0.1 K/mm3 (0.1-1.0); Monocytes % 2.8 % (1.7-9.3); Neutrophils # 0.2 K/mm3 (1.8-7.8); Red Blood Count 2.21 M/mm3 (4.60-6.20); Red Cell Distribution Width 18.5 % (11.5-17.5)
[2018-07-21 08:44] LABS: Neutrophils % 10.8 % (37.0-80.0)
[2018-07-21 08:52] LABS: Alanine Aminotransferase 32 U/L (12-78); Albumin/Globulin Ratio 0.9 (1.1-1.8); Alkaline Phosphatase 51 U/L (46-116); Anion Gap 12.9 mEq/L (5-15); Aspartate Amino Transferase 18 U/L (15-37); Bilirubin,Total 0.9 mg/dL (0.2-1.0); Blood Urea Nitrogen 18 mg/dL (7-18); Calcium 8.1 mg/dL (8.5-10.1); Carbon Dioxide 25 mmol/L (21.0-32.0); Chloride 107 mmol/L (98-107); Creatinine Clearance Estimated 88 mL/min (50-200); Creatinine,Serum 1.01 mg/dL (0.70-1.30); Estimated Glomerular Filt Rate 72 ml/min (>60); GFR (African American) 88 ML/MIN (>60); Globulin 3.5 gm/dl (1.3-3.2); Glucose 142 mg/dL (74-106); Potassium 3.9 mmoL/L (3.5-5.1); Sodium 141 mmol/L (136-145); Total Protein,Serum 6.5 gm/dL (6.4-8.2)
[2018-07-21 08:57] LABS: Hematocrit 21.5 % (42.0-52.0)
[2018-07-21 08:58] LABS: Platelet Count 14 K/mm3 (142-424)
[2018-07-21 08:59] LABS: MANUAL DIFFERENTIAL MANUAL DIFFERENTIAL (MANUAL DIFF)
[2018-07-21 09:03] LABS: Lymphocytes % 76 % (10-50); Monocytes % 4 % (2-9); Neutrophils % 16 % (42-76); Platelet Estimate Marked Decrease; RBC Morphology Normal; Total Cells Counted 100
--- NOTE | 2018-07-21 09:45 | PC.NURSE ---
0910-RETA FROM LAB PRESENT. LENY BECERRIL RN JESUS BLOOD FROM PORT TO TYPE AND CROSS FOR 1 UNIT PLT'S.
--- NOTE | 2018-07-21 16:09 | PC.NURSE ---
1555 -BLOOD DRAWN FROM PORT AT THIS TIME FOR 30 MIN. POST PLT COUNT.
[2018-07-21 16:14] LABS: Platelet Count 37 K/mm3 (142-424)
== END 2018-07-21 16:25 | disposition home or self-care (01) ==
LOC: INF 08:23
PROVIDERS: Visit Provider Internal Medicine Hematology & Oncology
DX: C92.00 Acute myeloblastic leukemia, not having achieved remission (principal)
CPT/HCPCS: 36430; 80053; 85007; 85025; 85049; 86900; 86901; J1642; P9034

== ENCOUNTER 2018-07-23 08:16 | Outpatient (CLI) | payer MEDICARE, OTHER, SELFPAY ==
[2018-07-23 08:16] VITALS: BMI 30.1
[2018-07-23 08:38] LABS: Basophils % 0.1 % (0.1-2.0); Eosinophils % 1.6 % (0.1-12.0); Lymphocytes # 1.4 K/mm3 (0.7-4.5); Lymphocytes % 83.4 % (10-50); Mean Corpuscular HGB Conc 35.8 g/dL (31.8-35.4); Mean Corpuscular Hemoglobin 34.9 pg (27.0-31.2); Mean Corpuscular Volume 97.5 fl (80-94); Mean Platelet Volume 8.3 fl (7.4-10.4); Monocytes # 0.1 K/mm3 (0.1-1.0); Monocytes % 3.1 % (1.7-9.3); Neutrophils # 0.2 K/mm3 (1.8-7.8); Red Cell Distribution Width 18.3 % (11.5-17.5); White Blood Count 1.6 K/mm3 (4.8-10.8)
[2018-07-23 08:57] LABS: Hematocrit 20.5 % (42.0-52.0); Hemoglobin 7.3 g/dL (14.1-18.0); Neutrophils % 11.8 % (37.0-80.0)
[2018-07-23 08:58] LABS: Platelet Count 25 K/mm3 (142-424)
[2018-07-23 09:00] LABS: MANUAL DIFFERENTIAL MANUAL DIFFERENTIAL (MANUAL DIFF)
[2018-07-23 09:04] LABS: Lymphocytes % 72 % (10-50); Monocytes % 2 % (2-9); Neutrophils % 12 % (42-76); Platelet Estimate Marked Decrease; Total Cells Counted 50
== END 2018-07-23 09:25 | disposition home or self-care (01) ==
LOC: INF 08:16
PROVIDERS: Visit Provider Internal Medicine Hematology & Oncology
DX: C92.00 Acute myeloblastic leukemia, not having achieved remission (principal); Z45.2 Encounter for adjustment and management of vascular access device
CPT/HCPCS: 85007; 85025; J1642

== ENCOUNTER 2018-07-25 08:12 | Outpatient (CLI) | payer MEDICARE, OTHER, SELFPAY ==
[2018-07-25 08:12] VITALS: BMI 30.1
[2018-07-25 08:33] LABS: Basophils % 0.3 % (0.1-2.0); Eosinophils % 1.5 % (0.1-12.0); Lymphocytes # 1.4 K/mm3 (0.7-4.5); Lymphocytes % 80.9 % (10-50); Mean Corpuscular HGB Conc 35.7 g/dL (31.8-35.4); Mean Corpuscular Hemoglobin 35.6 pg (27.0-31.2); Mean Corpuscular Volume 99.7 fl (80-94); Mean Platelet Volume 8.1 fl (7.4-10.4); Monocytes # 0.1 K/mm3 (0.1-1.0); Monocytes % 3.4 % (1.7-9.3); Neutrophils # 0.2 K/mm3 (1.8-7.8); Red Blood Count 1.97 M/mm3 (4.60-6.20); Red Cell Distribution Width 18.3 % (11.5-17.5); White Blood Count 1.7 K/mm3 (4.8-10.8)
[2018-07-25 08:47] LABS: Hematocrit 19.7 % (42.0-52.0); Platelet Count 17 K/mm3 (142-424)
[2018-07-25 08:49] LABS: MANUAL DIFFERENTIAL MANUAL DIFFERENTIAL (MANUAL DIFF)
[2018-07-25 08:55] LABS: Lymphocytes % 66 % (10-50); Monocytes % 6 % (2-9); Neutrophils % 28 % (42-76); Platelet Estimate Marked Decrease; Total Cells Counted 50
[2018-07-25 08:56] LABS: Anisocytosis 1+; Ovalocytes 1+
[2018-07-25 13:00] VITALS: BP 122/74; PULSE 68; TEMP 36.4
--- NOTE | 2018-07-25 13:00 | PC.NURSE ---
PT LABS WERE DRAWN AT 0810 FOR CBC AND CMP; PLT WERE 17,000 AND PER STANDING ORDERS THE PATIENT WOULD RECIEVE PLTS. THE [facility] WAS CALLED AND AT 1500 WE WERE TOLD THAT THE PLTS WERE AVAILABLE AT THE CENTER; DUE TO IT BEING SO LATE IN THE DAY THE PATIENT ASKED TO COME IN TOMORROW AND GET THE UNIT; MD WAS AWARE OF SITUATION AND IS OK WITH THE PATIENT TO COME TOMORROW; LAB AND NURSING WERE BOTH AWARE OF PATIENT LEAVING AND RETURNING TOMORROW
== END 2018-07-25 13:00 | disposition home or self-care (01) ==
LOC: INF 08:12
PROVIDERS: Visit Provider Internal Medicine Hematology & Oncology
DX: C92.00 Acute myeloblastic leukemia, not having achieved remission (principal)
CPT/HCPCS: 85007; 85025; 86850; 86900; 86901; J1642

== ENCOUNTER → 2018-07-26 09:09 | Outpatient (CLI) | payer MEDICARE, OTHER, SELFPAY ==
[2018-07-26] VITALS (10 sets, daily range): BP systolic 85–114; BP diastolic 46–61; PULSE 64–71; RESP 14–16; TEMP 36.7–36.9; O2SAT 93–98; BMI 32.9
[2018-07-26 12:01] LABS: MANUAL DIFFERENTIAL MANUAL DIFFERENTIAL (MANUAL DIFF)
[2018-07-26 12:02] LABS: Basophils % 0.3 % (0.1-2.0); Lymphocytes # 1.3 K/mm3 (0.7-4.5); Lymphocytes % 78.3 % (10-50); Mean Corpuscular HGB Conc 35.8 g/dL (31.8-35.4); Mean Corpuscular Hemoglobin 35.3 pg (27.0-31.2); Mean Corpuscular Volume 98.5 fl (80-94); Monocytes # 0.1 K/mm3 (0.1-1.0); Monocytes % 4.1 % (1.7-9.3); Neutrophils # 0.3 K/mm3 (1.8-7.8); Neutrophils % 15.2 % (37.0-80.0); Platelet Count 51 K/mm3 (142-424); Red Blood Count 1.89 M/mm3 (4.60-6.20); Red Cell Distribution Width 18.3 % (11.5-17.5); White Blood Count 1.7 K/mm3 (4.8-10.8)
[2018-07-26 12:07] LABS: Hematocrit 18.6 % (42.0-52.0); Hemoglobin 6.7 g/dL (14.1-18.0)
--- NOTE | 2018-07-26 12:15 | PC.NURSE ---
Notified Florence Isabel RN of pt's lab results per Linda Young RN
[2018-07-26 13:08] LABS: Eosinophils % 1 % (0-3); Lymphocytes % 63 % (10-50); Monocytes % 3 % (2-9); Neutrophils % 23 % (42-76); Total Cells Counted 100
[2018-07-26 13:09] LABS: Platelet Estimate Marked Decrease; RBC Morphology Normal
== END ==
PROVIDERS: PCP Family Medicine; Visit Provider Internal Medicine Hematology & Oncology
DX: C92.00 Acute myeloblastic leukemia, not having achieved remission (principal)
CPT/HCPCS: 36430; 85007; 85014; 85018; 85048; 85049; P9034

== ENCOUNTER 2018-07-27 08:43 | Outpatient (CLI) | payer MEDICARE, OTHER, SELFPAY ==
[2018-07-27] VITALS (21 sets, daily range): BP systolic 98–126; BP diastolic 47–68; PULSE 60–72; RESP 14–18; TEMP 36.5–36.8; O2SAT 92–99; BMI 30.1
[2018-07-27 16:13] LABS: Hematocrit 22.4 % (42.0-52.0)
== END 2018-07-27 15:35 | disposition home or self-care (01) ==
PROVIDERS: PCP Family Medicine; Visit Provider Internal Medicine Medical Oncology
DX: C92.00 Acute myeloblastic leukemia, not having achieved remission (principal)
CPT/HCPCS: 36430; 85014; 85018; P9016

== ENCOUNTER 2018-07-28 08:11 | Outpatient (CLI) | payer MEDICARE, OTHER, SELFPAY ==
[2018-07-28 08:14] VITALS: BMI 30.1
[2018-07-28 08:33] LABS: Basophils % 0.5 % (0.1-2.0); Eosinophils % 1.7 % (0.1-12.0); Hemoglobin 8.1 g/dL (14.1-18.0); Lymphocytes # 1.4 K/mm3 (0.7-4.5); Lymphocytes % 81.8 % (10-50); Mean Corpuscular HGB Conc 35.5 g/dL (31.8-35.4); Mean Corpuscular Hemoglobin 33.4 pg (27.0-31.2); Mean Corpuscular Volume 94.1 fl (80-94); Monocytes # 0.1 K/mm3 (0.1-1.0); Monocytes % 3.4 % (1.7-9.3); Neutrophils # 0.2 K/mm3 (1.8-7.8); Red Blood Count 2.43 M/mm3 (4.60-6.20); Red Cell Distribution Width 19.5 % (11.5-17.5); White Blood Count 1.7 K/mm3 (4.8-10.8)
[2018-07-28 08:37] LABS: Neutrophils % 12.7 % (37.0-80.0)
[2018-07-28 08:40] LABS: Hematocrit 22.9 % (42.0-52.0); Platelet Count 32 K/mm3 (142-424)
[2018-07-28 08:41] LABS: MANUAL DIFFERENTIAL MANUAL DIFFERENTIAL (MANUAL DIFF)
[2018-07-28 08:46] LABS: Alanine Aminotransferase 30 U/L (12-78); Albumin Level 2.7 gm/dL (3.4-5.0); Albumin/Globulin Ratio 0.8 (1.1-1.8); Alkaline Phosphatase 54 U/L (46-116); Anion Gap 14.4 mEq/L (5-15); Aspartate Amino Transferase 19 U/L (15-37); Bilirubin,Total 1.1 mg/dL (0.2-1.0); Blood Urea Nitrogen 17 mg/dL (7-18); Calcium 7.7 mg/dL (8.5-10.1); Carbon Dioxide 23 mmol/L (21.0-32.0); Chloride 107 mmol/L (98-107); Creatinine Clearance Estimated 84 mL/min (50-200); Creatinine,Serum 1.05 mg/dL (0.70-1.30); Estimated Glomerular Filt Rate 69 ml/min (>60); GFR (African American) 84 ML/MIN (>60); Globulin 3.5 gm/dl (1.3-3.2); Glucose 172 mg/dL (74-106); Potassium 3.4 mmoL/L (3.5-5.1); Sodium 141 mmol/L (136-145); Total Protein,Serum 6.2 gm/dL (6.4-8.2)
[2018-07-28 08:50] VITALS: BP 110/52; PULSE 71; RESP 18; O2SAT 94
[2018-07-28 08:54] LABS: Lymphocytes % 80 % (10-50); Monocytes % 4 % (2-9); Neutrophils % 14 % (42-76); Platelet Estimate Marked Decrease; Total Cells Counted 50
[2018-07-28 08:56] LABS: Ovalocytes 1+
== END 2018-07-28 08:50 | disposition home or self-care (01) ==
LOC: INF 08:11
PROVIDERS: Visit Provider Internal Medicine Hematology & Oncology
DX: C92.00 Acute myeloblastic leukemia, not having achieved remission (principal); Z45.2 Encounter for adjustment and management of vascular access device
CPT/HCPCS: 80053; 85007; 85025; J1642

== ENCOUNTER 2018-07-30 08:20 | Outpatient (CLI) | payer MEDICARE, OTHER, SELFPAY ==
[2018-07-30 08:24] VITALS: BMI 30.1
[2018-07-30 08:43] LABS: Basophils % 0.1 % (0.1-2.0); Eosinophils % 1.7 % (0.1-12.0); Hemoglobin 8.1 g/dL (14.1-18.0); Lymphocytes # 1.3 K/mm3 (0.7-4.5); Mean Corpuscular HGB Conc 35.6 g/dL (31.8-35.4); Mean Corpuscular Hemoglobin 33.8 pg (27.0-31.2); Mean Corpuscular Volume 94.9 fl (80-94); Mean Platelet Volume 8.5 fl (7.4-10.4); Monocytes # 0.1 K/mm3 (0.1-1.0); Monocytes % 3.7 % (1.7-9.3); Neutrophils # 0.2 K/mm3 (1.8-7.8); Red Blood Count 2.39 M/mm3 (4.60-6.20); Red Cell Distribution Width 18.9 % (11.5-17.5); White Blood Count 1.6 K/mm3 (4.8-10.8)
[2018-07-30 09:08] LABS: Neutrophils % 13.4 % (37.0-80.0)
[2018-07-30 09:09] LABS: Hematocrit 22.7 % (42.0-52.0); Platelet Count 18 K/mm3 (142-424)
[2018-07-30 09:11] LABS: MANUAL DIFFERENTIAL MANUAL DIFFERENTIAL (MANUAL DIFF)
--- NOTE | 2018-07-30 09:20 | PC.NURSE ---
07/30/18 0920-results noted from labs. hgb-8.1, hct-22.7, plt-18, wbc-1.6. pt will need platelets today. informed pt/ of results. blood drawn for lab for type and crossmatch. pt to leave hospital and return later today once platelets arrive from [facility]. lab staff ordered plts. will contact pt when plts arrive to the facility.
[2018-07-30 09:26] LABS: Lymphocytes % 68 % (10-50); Monocytes % 4 % (2-9); Neutrophils % 12 % (42-76); Platelet Estimate Marked Decrease; Total Cells Counted 50
--- NOTE | 2018-07-30 15:12 | PC.NURSE ---
07/30/18 1505 lab notified nursing staff that platelets have arrived to the facility and were being prepared for infusion. contacted pt's kyra and informed her. pt to return to facility by 4pm.
[2018-07-30 16:22] VITALS: BP 117/65; PULSE 66; RESP 18; TEMP 36.8; O2SAT 97
[2018-07-30 16:26] VITALS: BP 129/76; PULSE 67; RESP 18; TEMP 36.7; TEMP 36.8; O2SAT 97
[2018-07-30 16:31] VITALS: BP 122/59; PULSE 68; RESP 18; TEMP 36.8; O2SAT 97
[2018-07-30 16:36] VITALS: BP 118/64; PULSE 66; RESP 18; TEMP 36.7; O2SAT 97
[2018-07-30 16:41] VITALS: BP 131/68; PULSE 68; RESP 18; TEMP 36.8; O2SAT 98
[2018-07-30 16:52] VITALS: BP 131/65; PULSE 66; RESP 18; TEMP 36.6; O2SAT 97
[2018-07-30 17:36] LABS: Platelet Count 51 K/mm3 (142-424)
== END 2018-07-30 17:45 | disposition home or self-care (01) ==
LOC: INF 08:20
PROVIDERS: Visit Provider Internal Medicine Hematology & Oncology
DX: C92.00 Acute myeloblastic leukemia, not having achieved remission (principal); Z45.2 Encounter for adjustment and management of vascular access device
CPT/HCPCS: 36430; 85007; 85025; 85049; 86900; 86901; J1642; P9034

== ENCOUNTER 2018-08-01 08:19 | Outpatient (CLI) | payer MEDICARE, OTHER, SELFPAY ==
[2018-08-01 08:19] VITALS: BMI 30.1
[2018-08-01 08:39] LABS: Basophils % 0.2 % (0.1-2.0); Eosinophils % 1.3 % (0.1-12.0); Lymphocytes # 1.3 K/mm3 (0.7-4.5); Lymphocytes % 83.3 % (10-50); Mean Corpuscular HGB Conc 35.9 g/dL (31.8-35.4); Mean Corpuscular Hemoglobin 33.1 pg (27.0-31.2); Mean Corpuscular Volume 92.4 fl (80-94); Mean Platelet Volume 7.8 fl (7.4-10.4); Monocytes % 2.9 % (1.7-9.3); Neutrophils # 0.2 K/mm3 (1.8-7.8); Red Blood Count 2.31 M/mm3 (4.60-6.20); Red Cell Distribution Width 18.5 % (11.5-17.5); White Blood Count 1.5 K/mm3 (4.8-10.8)
[2018-08-01 08:41] LABS: Neutrophils % 12.3 % (37.0-80.0)
[2018-08-01 08:42] LABS: Hematocrit 21.3 % (42.0-52.0); Hemoglobin 7.6 g/dL (14.1-18.0); MANUAL DIFFERENTIAL MANUAL DIFFERENTIAL (MANUAL DIFF); Platelet Count 37 K/mm3 (142-424)
[2018-08-01 08:48] LABS: Alanine Aminotransferase 36 U/L (12-78); Albumin Level 2.8 gm/dL (3.4-5.0); Albumin/Globulin Ratio 0.7 (1.1-1.8); Alkaline Phosphatase 58 U/L (46-116); Anion Gap 13.6 mEq/L (5-15); Aspartate Amino Transferase 18 U/L (15-37); Bilirubin,Total 1.2 mg/dL (0.2-1.0); Blood Urea Nitrogen 20 mg/dL (7-18); Calcium 8.1 mg/dL (8.5-10.1); Carbon Dioxide 23 mmol/L (21.0-32.0); Chloride 107 mmol/L (98-107); Creatinine Clearance Estimated 84 mL/min (50-200); Creatinine,Serum 1.06 mg/dL (0.70-1.30); Estimated Glomerular Filt Rate 68 ml/min (>60); GFR (African American) 83 ML/MIN (>60); Globulin 3.8 gm/dl (1.3-3.2); Glucose 168 mg/dL (74-106); Potassium 3.6 mmoL/L (3.5-5.1); Sodium 140 mmol/L (136-145); Total Protein,Serum 6.6 gm/dL (6.4-8.2)
[2018-08-01 09:28] LABS: Eosinophils % 2 % (0-3); Lymphocytes % 64 % (10-50); Monocytes % 4 % (2-9); Neutrophils % 12 % (42-76); Total Cells Counted 50
[2018-08-01 09:29] LABS: Anisocytosis 1+; Macrocytosis 1+; Platelet Estimate Marked Decrease
== END 2018-08-01 08:50 | disposition home or self-care (01) ==
LOC: INF 08:19
PROVIDERS: Visit Provider Internal Medicine Hematology & Oncology
DX: C92.00 Acute myeloblastic leukemia, not having achieved remission (principal)
CPT/HCPCS: 80053; 85007; 85025; J1642

== ENCOUNTER 2018-08-04 08:22 | Outpatient (CLI) | payer MEDICARE, OTHER, SELFPAY ==
[2018-08-04] VITALS (24 sets, daily range): BP systolic 102–130; BP diastolic 52–83; PULSE 57–68; RESP 16–60; TEMP 36.2–36.7; O2SAT 97; BMI 30.1
[2018-08-04 08:39] LABS: Basophils % 0.1 % (0.1-2.0); Lymphocytes # 1.2 K/mm3 (0.7-4.5); Lymphocytes % 82.6 % (10-50); Mean Corpuscular HGB Conc 35.6 g/dL (31.8-35.4); Mean Corpuscular Volume 92.6 fl (80-94); Mean Platelet Volume 9.9 fl (7.4-10.4); Monocytes # 0.1 K/mm3 (0.1-1.0); Monocytes % 3.1 % (1.7-9.3); Neutrophils # 0.2 K/mm3 (1.8-7.8); Red Blood Count 2.15 M/mm3 (4.60-6.20); Red Cell Distribution Width 18.2 % (11.5-17.5); White Blood Count 1.5 K/mm3 (4.8-10.8)
[2018-08-04 08:52] LABS: Alanine Aminotransferase 34 U/L (12-78); Albumin Level 2.8 gm/dL (3.4-5.0); Albumin/Globulin Ratio 0.8 (1.1-1.8); Alkaline Phosphatase 57 U/L (46-116); Anion Gap 14.5 mEq/L (5-15); Aspartate Amino Transferase 19 U/L (15-37); Bilirubin,Total 1.1 mg/dL (0.2-1.0); Blood Urea Nitrogen 22 mg/dL (7-18); Carbon Dioxide 23 mmol/L (21.0-32.0); Chloride 104 mmol/L (98-107); Creatinine Clearance Estimated 85 mL/min (50-200); Creatinine,Serum 1.04 mg/dL (0.70-1.30); Estimated Glomerular Filt Rate 70 ml/min (>60); GFR (African American) 85 ML/MIN (>60); Globulin 3.7 gm/dl (1.3-3.2); Glucose 173 mg/dL (74-106); Potassium 3.5 mmoL/L (3.5-5.1); Sodium 138 mmol/L (136-145); Total Protein,Serum 6.5 gm/dL (6.4-8.2)
[2018-08-04 09:00] LABS: Neutrophils % 13.2 % (37.0-80.0)
[2018-08-04 09:02] LABS: Hematocrit 19.9 % (42.0-52.0); Hemoglobin 7.1 g/dL (14.1-18.0); Platelet Count 16 K/mm3 (142-424)
[2018-08-04 09:03] LABS: MANUAL DIFFERENTIAL MANUAL DIFFERENTIAL (MANUAL DIFF)
[2018-08-04 09:06] LABS: Lymphocytes % 82 % (10-50); Monocytes % 2 % (2-9); Neutrophils % 4 % (42-76); Platelet Estimate Marked Decrease; Total Cells Counted 50
--- NOTE | 2018-08-04 17:02 | PC.NURSE ---
report received from pia meyers rn.
[2018-08-04 18:16] LABS: Basophils % 0.2 % (0.1-2.0); Neutrophils # 0.1 K/mm3 (1.8-7.8); Red Cell Distribution Width 17.7 % (11.5-17.5)
[2018-08-04 18:20] LABS: Eosinophils % 1.6 % (0.1-12.0); Lymphocytes # 1.5 K/mm3 (0.7-4.5); Lymphocytes % 89.7 % (10-50); Mean Corpuscular HGB Conc 35.9 g/dL (31.8-35.4); Mean Corpuscular Hemoglobin 32.4 pg (27.0-31.2); Mean Corpuscular Volume 90.2 fl (80-94); Mean Platelet Volume 7.9 fl (7.4-10.4); Monocytes % 2.3 % (1.7-9.3); Red Blood Count 2.63 M/mm3 (4.60-6.20); White Blood Count 1.7 K/mm3 (4.8-10.8)
[2018-08-04 18:29] LABS: Neutrophils % 6.3 % (37.0-80.0)
[2018-08-04 18:30] LABS: Hematocrit 23.7 % (42.0-52.0)
[2018-08-04 18:31] LABS: MANUAL DIFFERENTIAL MANUAL DIFFERENTIAL (MANUAL DIFF); Platelet Count 48 K/mm3 (142-424)
[2018-08-04 18:48] LABS: Lymphocytes % 66 % (10-50); Monocytes % 14 % (2-9); Neutrophils % 14 % (42-76); Platelet Estimate Moderate Decrease; Total Cells Counted 50
[2018-08-04 18:49] LABS: Helmet Cells 1+
[2018-08-04 19:04] LABS: Hemoglobin 8.5 g/dL (14.1-18.0)
== END 2018-08-04 18:15 | disposition home or self-care (01) ==
LOC: INF 08:22
PROVIDERS: Visit Provider Internal Medicine Hematology & Oncology
DX: C92.00 Acute myeloblastic leukemia, not having achieved remission (principal)
CPT/HCPCS: 36430; 80053; 85007; 85025; 86850; P9016; P9034

== ENCOUNTER 2018-08-06 08:15 | Outpatient (CLI) | payer MEDICARE, OTHER, SELFPAY ==
[2018-08-06 08:22] VITALS: BMI 30.2
[2018-08-06 08:38] LABS: Basophils % 0.2 % (0.1-2.0); Eosinophils % 1.5 % (0.1-12.0); Hematocrit 24.1 % (42.0-52.0); Hemoglobin 8.5 g/dL (14.1-18.0); Lymphocytes # 1.3 K/mm3 (0.7-4.5); Lymphocytes % 82.2 % (10-50); Mean Corpuscular HGB Conc 35.3 g/dL (31.8-35.4); Mean Corpuscular Hemoglobin 31.9 pg (27.0-31.2); Mean Corpuscular Volume 90.6 fl (80-94); Monocytes # 0.1 K/mm3 (0.1-1.0); Monocytes % 4.5 % (1.7-9.3); Neutrophils # 0.2 K/mm3 (1.8-7.8); Red Blood Count 2.66 M/mm3 (4.60-6.20); Red Cell Distribution Width 17.7 % (11.5-17.5); White Blood Count 1.6 K/mm3 (4.8-10.8)
[2018-08-06 08:55] LABS: Neutrophils % 11.5 % (37.0-80.0); Platelet Count 43 K/mm3 (142-424)
[2018-08-06 08:56] LABS: MANUAL DIFFERENTIAL MANUAL DIFFERENTIAL (MANUAL DIFF)
[2018-08-06 09:00] LABS: Lymphocytes % 72 % (10-50); Monocytes % 4 % (2-9); Neutrophils % 10 % (42-76); Platelet Estimate Marked Decrease; Total Cells Counted 50
== END 2018-08-06 09:05 | disposition home or self-care (01) ==
LOC: INF 08:21
PROVIDERS: Visit Provider Internal Medicine Hematology & Oncology
DX: C92.00 Acute myeloblastic leukemia, not having achieved remission (principal); Z45.2 Encounter for adjustment and management of vascular access device
CPT/HCPCS: 85007; 85025; J1642

== ENCOUNTER 2018-08-08 08:30 | Outpatient (CLI) | payer MEDICARE, OTHER, SELFPAY ==
[2018-08-08 08:30] VITALS: BMI 30.2
[2018-08-08 08:59] LABS: Basophils % 0.2 % (0.1-2.0); Eosinophils % 1.9 % (0.1-12.0); Lymphocytes # 1.2 K/mm3 (0.7-4.5); Lymphocytes % 86.3 % (10-50); Mean Corpuscular HGB Conc 35.3 g/dL (31.8-35.4); Mean Corpuscular Hemoglobin 32.1 pg (27.0-31.2); Mean Corpuscular Volume 90.8 fl (80-94); Mean Platelet Volume 8.3 fl (7.4-10.4); Monocytes % 2.2 % (1.7-9.3); Neutrophils # 0.1 K/mm3 (1.8-7.8); Red Cell Distribution Width 17.4 % (11.5-17.5); White Blood Count 1.4 K/mm3 (4.8-10.8)
[2018-08-08 09:05] LABS: Alanine Aminotransferase 37 U/L (12-78); Albumin Level 2.6 gm/dL (3.4-5.0); Albumin/Globulin Ratio 0.8 (1.1-1.8); Alkaline Phosphatase 55 U/L (46-116); Anion Gap 13.6 mEq/L (5-15); Aspartate Amino Transferase 18 U/L (15-37); Blood Urea Nitrogen 18 mg/dL (7-18); Calcium 8.1 mg/dL (8.5-10.1); Carbon Dioxide 25 mmol/L (21.0-32.0); Chloride 106 mmol/L (98-107); Creatinine Clearance Estimated 83 mL/min (50-200); Creatinine,Serum 1.07 mg/dL (0.70-1.30); Estimated Glomerular Filt Rate 68 ml/min (>60); GFR (African American) 82 ML/MIN (>60); Globulin 3.4 gm/dl (1.3-3.2); Glucose 177 mg/dL (74-106); Potassium 3.6 mmoL/L (3.5-5.1); Sodium 141 mmol/L (136-145)
[2018-08-08 09:08] LABS: Hematocrit 22.7 % (42.0-52.0)
[2018-08-08 09:09] LABS: Neutrophils % 9.4 % (37.0-80.0); Platelet Count 26 K/mm3 (142-424)
[2018-08-08 09:10] LABS: MANUAL DIFFERENTIAL MANUAL DIFFERENTIAL (MANUAL DIFF)
[2018-08-08 09:13] LABS: Lymphocytes % 80 % (10-50); Monocytes % 2 % (2-9); Neutrophils % 8 % (42-76); Platelet Estimate Marked Decrease; Total Cells Counted 50
== END 2018-08-08 09:00 | disposition home or self-care (01) ==
LOC: INF 08:30
PROVIDERS: Visit Provider Internal Medicine Hematology & Oncology
DX: C92.00 Acute myeloblastic leukemia, not having achieved remission (principal)
CPT/HCPCS: 80053; 85007; 85025; J1642

== ENCOUNTER 2018-08-12 08:16 | Outpatient (CLI) | payer MEDICARE, OTHER, SELFPAY ==
[2018-08-12] VITALS (7 sets, daily range): BP systolic 102–121; BP diastolic 51–62; PULSE 69–77; RESP 18; TEMP 36.7–36.9; O2SAT 97–98; BMI 30.2
[2018-08-12 08:42] LABS: Basophils % 0.2 % (0.1-2.0); Eosinophils % 1.1 % (0.1-12.0); Lymphocytes # 1.3 K/mm3 (0.7-4.5); Lymphocytes % 87.4 % (10-50); Mean Corpuscular HGB Conc 35.9 g/dL (31.8-35.4); Mean Corpuscular Volume 89.1 fl (80-94); Mean Platelet Volume 10.9 fl (7.4-10.4); Monocytes % 2.6 % (1.7-9.3); Neutrophils # 0.1 K/mm3 (1.8-7.8); Red Blood Count 2.44 M/mm3 (4.60-6.20); Red Cell Distribution Width 16.9 % (11.5-17.5); White Blood Count 1.5 K/mm3 (4.8-10.8)
[2018-08-12 09:02] LABS: Alanine Aminotransferase 40 U/L (12-78); Albumin Level 2.7 gm/dL (3.4-5.0); Albumin/Globulin Ratio 0.8 (1.1-1.8); Alkaline Phosphatase 59 U/L (46-116); Anion Gap 13.6 mEq/L (5-15); Aspartate Amino Transferase 20 U/L (15-37); Bilirubin,Total 1.2 mg/dL (0.2-1.0); Blood Urea Nitrogen 17 mg/dL (7-18); Calcium 8.1 mg/dL (8.5-10.1); Carbon Dioxide 25 mmol/L (21.0-32.0); Chloride 107 mmol/L (98-107); Creatinine Clearance Estimated 82 mL/min (50-200); Creatinine,Serum 1.08 mg/dL (0.70-1.30); Estimated Glomerular Filt Rate 67 ml/min (>60); GFR (African American) 81 ML/MIN (>60); Globulin 3.5 gm/dl (1.3-3.2); Glucose 168 mg/dL (74-106); Potassium 3.6 mmoL/L (3.5-5.1); Sodium 142 mmol/L (136-145); Total Protein,Serum 6.2 gm/dL (6.4-8.2)
[2018-08-12 09:17] LABS: Neutrophils % 8.8 % (37.0-80.0); Platelet Count 14 K/mm3 (142-424)
[2018-08-12 09:18] LABS: Hematocrit 21.7 % (42.0-52.0); Hemoglobin 7.8 g/dL (14.1-18.0)
[2018-08-12 09:19] LABS: MANUAL DIFFERENTIAL MANUAL DIFFERENTIAL (MANUAL DIFF)
[2018-08-12 09:36] LABS: Anisocytosis 1+; Eosinophils % 2 % (0-3); Lymphocytes % 78 % (10-50); Monocytes % 2 % (2-9); Neutrophils % 6 % (42-76); Platelet Estimate Marked Decrease; Total Cells Counted 50
[2018-08-12 09:37] LABS: Microcytosis 1+
[2018-08-12 14:23] LABS: Platelet Count 25 K/mm3 (142-424)
== END 2018-08-12 13:50 | disposition home or self-care (01) ==
LOC: INF 08:16
PROVIDERS: Visit Provider Internal Medicine Hematology & Oncology
DX: C92.00 Acute myeloblastic leukemia, not having achieved remission (principal)
CPT/HCPCS: 36430; 80053; 85007; 85025; 85049; 86900; 86901; J1642; P9034

== ENCOUNTER 2018-08-15 08:05 | Outpatient (CLI) | payer MEDICARE, OTHER, SELFPAY ==
[2018-08-15 08:16] VITALS: BMI 30.2
[2018-08-15 08:48] LABS: Eosinophils % 0.8 % (0.1-12.0); Lymphocytes # 1.1 K/mm3 (0.7-4.5); Lymphocytes % 83.6 % (10-50); Mean Corpuscular HGB Conc 35.6 g/dL (31.8-35.4); Mean Corpuscular Hemoglobin 31.8 pg (27.0-31.2); Mean Corpuscular Volume 89.4 fl (80-94); Mean Platelet Volume 9.2 fl (7.4-10.4); Monocytes % 3.3 % (1.7-9.3); Neutrophils # 0.2 K/mm3 (1.8-7.8); Red Blood Count 2.27 M/mm3 (4.60-6.20); Red Cell Distribution Width 16.7 % (11.5-17.5)
[2018-08-15 08:49] LABS: Hemoglobin 7.2 g/dL (14.1-18.0)
[2018-08-15 08:50] LABS: Hematocrit 20.3 % (42.0-52.0); Neutrophils % 12.4 % (37.0-80.0); Platelet Count 24 K/mm3 (142-424)
[2018-08-15 08:51] LABS: MANUAL DIFFERENTIAL MANUAL DIFFERENTIAL (MANUAL DIFF)
[2018-08-15 08:58] LABS: White Blood Count 1.3 K/mm3 (4.8-10.8)
[2018-08-15 09:05] LABS: Alanine Aminotransferase 42 U/L (12-78); Albumin Level 2.7 gm/dL (3.4-5.0); Albumin/Globulin Ratio 0.8 (1.1-1.8); Alkaline Phosphatase 58 U/L (46-116); Anion Gap 13.5 mEq/L (5-15); Aspartate Amino Transferase 28 U/L (15-37); Bilirubin,Total 1.1 mg/dL (0.2-1.0); Blood Urea Nitrogen 19 mg/dL (7-18); Calcium 7.9 mg/dL (8.5-10.1); Carbon Dioxide 24 mmol/L (21.0-32.0); Chloride 107 mmol/L (98-107); Creatinine Clearance Estimated 82 mL/min (50-200); Creatinine,Serum 1.08 mg/dL (0.70-1.30); Estimated Glomerular Filt Rate 67 ml/min (>60); GFR (African American) 81 ML/MIN (>60); Globulin 3.5 gm/dl (1.3-3.2); Glucose 163 mg/dL (74-106); Potassium 3.5 mmoL/L (3.5-5.1); Sodium 141 mmol/L (136-145); Total Protein,Serum 6.2 gm/dL (6.4-8.2)
[2018-08-15 09:25] LABS: Anisocytosis 1+; Eosinophils % 2 % (0-3); Lymphocytes % 70 % (10-50); Monocytes % 6 % (2-9); Neutrophils % 14 % (42-76); Platelet Estimate Moderate Decrease; Total Cells Counted 50
[2018-08-15 09:26] LABS: Microcytosis 1+; Ovalocytes 1+
== END 2018-08-15 09:55 | disposition home or self-care (01) ==
LOC: INF 08:15
PROVIDERS: Visit Provider Internal Medicine Hematology & Oncology
DX: C92.00 Acute myeloblastic leukemia, not having achieved remission (principal)
CPT/HCPCS: 80053; 85007; 85025; J1642

== ENCOUNTER 2018-08-18 08:20 | Outpatient (CLI) | payer MEDICARE, OTHER, SELFPAY ==
[2018-08-18] VITALS (26 sets, daily range): BP systolic 109–156; BP diastolic 47–72; PULSE 59–73; RESP 16–62; TEMP 36.2–37; O2SAT 96–99; BMI 30.1
[2018-08-18 08:47] LABS: Lymphocytes # 1.1 K/mm3 (0.7-4.5); Neutrophils # 0.1 K/mm3 (1.8-7.8)
[2018-08-18 08:53] LABS: Eosinophils % 0.9 % (0.1-12.0); Lymphocytes % 87.4 % (10-50); Mean Corpuscular HGB Conc 36.2 g/dL (31.8-35.4); Mean Corpuscular Hemoglobin 31.9 pg (27.0-31.2); Mean Corpuscular Volume 88.2 fl (80-94); Mean Platelet Volume 9.2 fl (7.4-10.4); Monocytes % 2.6 % (1.7-9.3); Red Blood Count 2.06 M/mm3 (4.60-6.20); Red Cell Distribution Width 16.5 % (11.5-17.5); White Blood Count 1.2 K/mm3 (4.8-10.8)
[2018-08-18 08:54] LABS: Neutrophils % 9.1 % (37.0-80.0)
[2018-08-18 08:56] LABS: Hematocrit 18.1 % (42.0-52.0); Hemoglobin 6.6 g/dL (14.1-18.0); Platelet Count 13 K/mm3 (142-424)
[2018-08-18 08:58] LABS: MANUAL DIFFERENTIAL MANUAL DIFFERENTIAL (MANUAL DIFF)
[2018-08-18 08:59] LABS: Alanine Aminotransferase 46 U/L (12-78); Albumin Level 2.7 gm/dL (3.4-5.0); Albumin/Globulin Ratio 0.8 (1.1-1.8); Alkaline Phosphatase 59 U/L (46-116); Anion Gap 15.4 mEq/L (5-15); Aspartate Amino Transferase 29 U/L (15-37); Bilirubin,Total 1.1 mg/dL (0.2-1.0); Blood Urea Nitrogen 24 mg/dL (7-18); Calcium 7.7 mg/dL (8.5-10.1); Carbon Dioxide 22 mmol/L (21.0-32.0); Chloride 107 mmol/L (98-107); Creatinine Clearance Estimated 78 mL/min (50-200); Creatinine,Serum 1.13 mg/dL (0.70-1.30); Estimated Glomerular Filt Rate 64 ml/min (>60); GFR (African American) 77 ML/MIN (>60); Globulin 3.6 gm/dl (1.3-3.2); Glucose 153 mg/dL (74-106); Potassium 3.4 mmoL/L (3.5-5.1); Sodium 141 mmol/L (136-145); Total Protein,Serum 6.3 gm/dL (6.4-8.2)
--- NOTE | 2018-08-18 09:26 | PC.NURSE ---
lab staff rizwan at chair side to witness blood draw for type and crossmatch. blood arrival from lab noted approximately 2 hours for [facility] to deliver to [facility] from [facility].
[2018-08-18 09:36] LABS: Lymphocytes % 74 % (10-50); Monocytes % 4 % (2-9); Neutrophils % 18 % (42-76); Platelet Estimate Moderate Decrease; Total Cells Counted 50
[2018-08-18 09:38] LABS: Acanthocytes 1+
[2018-08-18 09:39] LABS: Anisocytosis 1+
--- NOTE | 2018-08-18 17:59 | PC.NURSE ---
PT TOLERATED TRANSFUSIONS WELL. ALL VSS. CBC WAS DRAWN AND SENT TO THE LAB. PORT WAS FLUSHED WITH HEPARIN AND SECURED WITH 2X2 AND TEGADERM. PT LEFT INFUSION WITH SPOUSE AT 1755.
[2018-08-18 18:16] LABS: Basophils % 0.1 % (0.1-2.0); Lymphocytes # 1.4 K/mm3 (0.7-4.5); Lymphocytes % 88.3 % (10-50); Mean Corpuscular HGB Conc 36.3 g/dL (31.8-35.4); Mean Corpuscular Hemoglobin 31.2 pg (27.0-31.2); Mean Corpuscular Volume 85.9 fl (80-94); Mean Platelet Volume 8.6 fl (7.4-10.4); Monocytes % 2.2 % (1.7-9.3); Neutrophils # 0.1 K/mm3 (1.8-7.8); Red Blood Count 2.78 M/mm3 (4.60-6.20); White Blood Count 1.6 K/mm3 (4.8-10.8)
[2018-08-18 18:23] LABS: Neutrophils % 8.4 % (37.0-80.0)
[2018-08-18 18:38] LABS: Hematocrit 23.9 % (42.0-52.0)
[2018-08-18 18:39] LABS: MANUAL DIFFERENTIAL MANUAL DIFFERENTIAL (MANUAL DIFF); Platelet Count 18 K/mm3 (142-424)
[2018-08-18 19:09] LABS: Eosinophils % 2 % (0-3); Lymphocytes % 60 % (10-50); Monocytes % 8 % (2-9); Neutrophils % 22 % (42-76); Platelet Estimate Marked Decrease; Total Cells Counted 50
[2018-08-18 19:10] LABS: Acanthocytes 1+
[2018-08-18 19:16] LABS: Hemoglobin 8.7 g/dL (14.1-18.0)
== END 2018-08-18 17:55 | disposition home or self-care (01) ==
LOC: INF 08:20
PROVIDERS: Visit Provider Internal Medicine Medical Oncology
DX: C92.00 Acute myeloblastic leukemia, not having achieved remission (principal)
CPT/HCPCS: 36430; 80053; 85007; 85025; 86850; P9016; P9034

== ENCOUNTER 2018-08-19 14:49 | Outpatient (CLI) | payer MEDICARE, OTHER, SELFPAY ==
[2018-08-19 15:00] VITALS: BP 128/70; PULSE 68; RESP 18; TEMP 36.5; O2SAT 96
[2018-08-19 15:02] VITALS: BMI 30.1
[2018-08-19 15:10] VITALS: BP 127/63; PULSE 67; RESP 18; TEMP 36.7; O2SAT 95
[2018-08-19 15:15] VITALS: BP 117/61; PULSE 66; RESP 18; TEMP 36.3; O2SAT 95
[2018-08-19 15:20] VITALS: BP 122/54; PULSE 69; RESP 18; TEMP 36.7; O2SAT 94
[2018-08-19 15:25] VITALS: BP 108/50; PULSE 65; RESP 18; TEMP 36.7; O2SAT 95
[2018-08-19 15:30] VITALS: BP 119/50; PULSE 68; RESP 18; TEMP 36.7; O2SAT 97
[2018-08-19 16:40] LABS: Platelet Count 42 K/mm3 (142-424)
== END 2018-08-19 16:10 | disposition home or self-care (01) ==
LOC: INF 14:49
PROVIDERS: Visit Provider Internal Medicine Medical Oncology
DX: C92.00 Acute myeloblastic leukemia, not having achieved remission (principal)
CPT/HCPCS: 36430; 85049; P9034

== ENCOUNTER 2018-08-22 08:05 | Outpatient (CLI) | payer MEDICARE, OTHER, SELFPAY ==
[2018-08-22 08:38] LABS: Basophils % 0.1 % (0.1-2.0); Eosinophils % 0.9 % (0.1-12.0); Lymphocytes # 1.2 K/mm3 (0.7-4.5); Lymphocytes % 88.7 % (10-50); Mean Corpuscular HGB Conc 33.8 g/dL (31.8-35.4); Mean Corpuscular Hemoglobin 28.7 pg (27.0-31.2); Mean Corpuscular Volume 84.8 fl (80-94); Mean Platelet Volume 8.5 fl (7.4-10.4); Monocytes % 2.8 % (1.7-9.3); Neutrophils # 0.1 K/mm3 (1.8-7.8); Red Cell Distribution Width 15.9 % (11.5-17.5); White Blood Count 1.4 K/mm3 (4.8-10.8)
[2018-08-22 08:41] LABS: Neutrophils % 7.5 % (37.0-80.0)
[2018-08-22 08:48] LABS: Alanine Aminotransferase 43 U/L (12-78); Albumin Level 2.7 gm/dL (3.4-5.0); Albumin/Globulin Ratio 0.8 (1.1-1.8); Alkaline Phosphatase 60 U/L (46-116); Anion Gap 15.5 mEq/L (5-15); Aspartate Amino Transferase 27 U/L (15-37); Blood Urea Nitrogen 25 mg/dL (7-18); Calcium 7.8 mg/dL (8.5-10.1); Carbon Dioxide 23 mmol/L (21.0-32.0); Chloride 108 mmol/L (98-107); Creatinine Clearance Estimated 2 mL/min (50-200); Creatinine,Serum 1.14 mg/dL (0.70-1.30); Estimated Glomerular Filt Rate 63 ml/min (>60); GFR (African American) 76 ML/MIN (>60); Globulin 3.4 gm/dl (1.3-3.2); Glucose 161 mg/dL (74-106); Potassium 3.5 mmoL/L (3.5-5.1); Sodium 143 mmol/L (136-145); Total Protein,Serum 6.1 gm/dL (6.4-8.2)
[2018-08-22 08:49] LABS: Hematocrit 21.9 % (42.0-52.0); Hemoglobin 7.4 g/dL (14.1-18.0)
[2018-08-22 08:50] LABS: MANUAL DIFFERENTIAL MANUAL DIFFERENTIAL (MANUAL DIFF); Platelet Count 24 K/mm3 (142-424)
[2018-08-22 09:35] LABS: Anisocytosis 1+; Lymphocytes % 58 % (10-50); Microcytosis 1+; Monocytes % 2 % (2-9); Neutrophils % 8 % (42-76); Platelet Estimate Marked Decrease; Total Cells Counted 50
== END 2018-08-22 09:15 | disposition home or self-care (01) ==
LOC: INF 08:14
PROVIDERS: Visit Provider Internal Medicine Hematology & Oncology
DX: C92.00 Acute myeloblastic leukemia, not having achieved remission (principal); Z45.2 Encounter for adjustment and management of vascular access device
CPT/HCPCS: 80053; 85007; 85025; J1642

== ENCOUNTER 2018-08-25 08:26 | Outpatient (CLI) | payer MEDICARE, OTHER, SELFPAY ==
[2018-08-25] VITALS (9 sets, daily range): BP systolic 109–123; BP diastolic 55–74; PULSE 68–77; RESP 18–72; TEMP 36.8–37.3; O2SAT 95–98; BMI 29.5
[2018-08-25 09:02] LABS: Basophils % 0.9 % (0.1-2.0); Eosinophils % 0.5 % (0.1-12.0); Lymphocytes # 1.2 K/mm3 (0.7-4.5); Lymphocytes % 88.7 % (10-50); Mean Corpuscular HGB Conc 34.4 g/dL (31.8-35.4); Mean Corpuscular Hemoglobin 29.6 pg (27.0-31.2); Mean Corpuscular Volume 85.8 fl (80-94); Mean Platelet Volume 7.6 fl (7.4-10.4); Monocytes % 2.4 % (1.7-9.3); Neutrophils # 0.1 K/mm3 (1.8-7.8); Red Blood Count 2.45 M/mm3 (4.60-6.20); Red Cell Distribution Width 15.7 % (11.5-17.5); White Blood Count 1.4 K/mm3 (4.8-10.8)
[2018-08-25 09:10] LABS: Neutrophils % 7.5 % (37.0-80.0)
[2018-08-25 09:11] LABS: Hemoglobin 7.2 g/dL (14.1-18.0); Platelet Count 13 K/mm3 (142-424)
[2018-08-25 09:13] LABS: MANUAL DIFFERENTIAL MANUAL DIFFERENTIAL (MANUAL DIFF)
[2018-08-25 09:15] LABS: Lymphocytes % 78 % (10-50); Monocytes % 2 % (2-9); Neutrophils % 8 % (42-76); Platelet Estimate Marked Decrease; Total Cells Counted 50
[2018-08-25 09:26] LABS: Alanine Aminotransferase 44 U/L (12-78); Albumin Level 2.6 gm/dL (3.4-5.0); Albumin/Globulin Ratio 0.7 (1.1-1.8); Alkaline Phosphatase 59 U/L (46-116); Anion Gap 13.4 mEq/L (5-15); Aspartate Amino Transferase 28 U/L (15-37); Bilirubin,Total 1.3 mg/dL (0.2-1.0); Blood Urea Nitrogen 21 mg/dL (7-18); Calcium 7.9 mg/dL (8.5-10.1); Carbon Dioxide 24 mmol/L (21.0-32.0); Chloride 107 mmol/L (98-107); Creatinine Clearance Estimated 82 mL/min (50-200); Creatinine,Serum 1.06 mg/dL (0.70-1.30); Estimated Glomerular Filt Rate 68 ml/min (>60); GFR (African American) 83 ML/MIN (>60); Globulin 3.7 gm/dl (1.3-3.2); Glucose 166 mg/dL (74-106); Potassium 3.4 mmoL/L (3.5-5.1); Sodium 141 mmol/L (136-145); Total Protein,Serum 6.3 gm/dL (6.4-8.2)
[2018-08-25 14:19] LABS: Platelet Count 46 K/mm3 (142-424)
== END 2018-08-25 13:50 | disposition home or self-care (01) ==
LOC: INF 08:26
PROVIDERS: Visit Provider Internal Medicine Hematology & Oncology
DX: C92.00 Acute myeloblastic leukemia, not having achieved remission (principal)
CPT/HCPCS: 36430; 80053; 85007; 85025; 85049; 86900; 86901; P9034

== ENCOUNTER 2018-08-27 08:24 | Outpatient (CLI) | payer MEDICARE, OTHER, SELFPAY ==
[2018-08-27] VITALS (18 sets, daily range): BP systolic 98–123; BP diastolic 49–68; PULSE 62–72; RESP 18; TEMP 36.4–36.8; O2SAT 97–98; BMI 30.1
[2018-08-27 08:45] LABS: Basophils % 0.1 % (0.1-2.0); Eosinophils % 1.5 % (0.1-12.0); Lymphocytes # 1.2 K/mm3 (0.7-4.5); Lymphocytes % 89.8 % (10-50); Mean Corpuscular Hemoglobin 29.3 pg (27.0-31.2); Mean Corpuscular Volume 86.2 fl (80-94); Mean Platelet Volume 8.7 fl (7.4-10.4); Monocytes % 1.8 % (1.7-9.3); Neutrophils # 0.1 K/mm3 (1.8-7.8); Red Blood Count 2.31 M/mm3 (4.60-6.20); Red Cell Distribution Width 15.7 % (11.5-17.5); White Blood Count 1.3 K/mm3 (4.8-10.8)
[2018-08-27 09:15] LABS: Neutrophils % 6.7 % (37.0-80.0)
[2018-08-27 09:16] LABS: Hematocrit 19.9 % (42.0-52.0); Hemoglobin 6.7 g/dL (14.1-18.0); Platelet Count 31 K/mm3 (142-424)
[2018-08-27 09:18] LABS: MANUAL DIFFERENTIAL MANUAL DIFFERENTIAL (MANUAL DIFF)
[2018-08-27 09:20] LABS: Lymphocytes % 78 % (10-50); Monocytes % 2 % (2-9); Neutrophils % 6 % (42-76); Platelet Estimate Marked Decrease; Total Cells Counted 50
== END 2018-08-27 17:50 | disposition home or self-care (01) ==
LOC: INF 08:24
PROVIDERS: Visit Provider Internal Medicine Hematology & Oncology
DX: C92.00 Acute myeloblastic leukemia, not having achieved remission (principal); Z45.2 Encounter for adjustment and management of vascular access device
CPT/HCPCS: 36415; 36430; 85007; 85014; 85018; 85025; 86850; J1642; P9016

== ENCOUNTER 2018-08-29 08:13 | Outpatient (CLI) | payer MEDICARE, OTHER, SELFPAY ==
[2018-08-29 08:17] VITALS: BMI 30.2
[2018-08-29 08:38] LABS: Basophils % 0.2 % (0.1-2.0); Eosinophils % 0.8 % (0.1-12.0); Hematocrit 25.2 % (42.0-52.0); Hemoglobin 8.5 g/dL (14.1-18.0); Lymphocytes # 1.3 K/mm3 (0.7-4.5); Lymphocytes % 90.2 % (10-50); Mean Corpuscular HGB Conc 33.8 g/dL (31.8-35.4); Mean Corpuscular Hemoglobin 28.4 pg (27.0-31.2); Mean Corpuscular Volume 83.9 fl (80-94); Mean Platelet Volume 9.3 fl (7.4-10.4); Monocytes % 2.3 % (1.7-9.3); Neutrophils # 0.1 K/mm3 (1.8-7.8); Red Blood Count 3.01 M/mm3 (4.60-6.20); Red Cell Distribution Width 15.8 % (11.5-17.5); White Blood Count 1.5 K/mm3 (4.8-10.8)
[2018-08-29 08:43] LABS: Neutrophils % 6.6 % (37.0-80.0); Platelet Count 25 K/mm3 (142-424)
[2018-08-29 08:49] LABS: Alanine Aminotransferase 50 U/L (12-78); Albumin Level 2.8 gm/dL (3.4-5.0); Albumin/Globulin Ratio 0.8 (1.1-1.8); Alkaline Phosphatase 64 U/L (46-116); Anion Gap 11.6 mEq/L (5-15); Aspartate Amino Transferase 32 U/L (15-37); Bilirubin,Total 1.2 mg/dL (0.2-1.0); Blood Urea Nitrogen 18 mg/dL (7-18); Carbon Dioxide 24 mmol/L (21.0-32.0); Chloride 108 mmol/L (98-107); Creatinine Clearance Estimated 83 mL/min (50-200); Creatinine,Serum 1.07 mg/dL (0.70-1.30); Estimated Glomerular Filt Rate 68 ml/min (>60); GFR (African American) 82 ML/MIN (>60); Globulin 3.6 gm/dl (1.3-3.2); Glucose 139 mg/dL (74-106); Potassium 3.6 mmoL/L (3.5-5.1); Sodium 140 mmol/L (136-145); Total Protein,Serum 6.4 gm/dL (6.4-8.2)
[2018-08-29 08:54] LABS: MANUAL DIFFERENTIAL MANUAL DIFFERENTIAL (MANUAL DIFF)
[2018-08-29 09:04] LABS: Lymphocytes % 62 % (10-50); Microcytosis 1+; Monocytes % 2 % (2-9); Neutrophils % 8 % (42-76); Platelet Estimate Marked Decrease; Total Cells Counted 50
== END 2018-08-29 09:25 | disposition home or self-care (01) ==
LOC: INF 08:13
PROVIDERS: Visit Provider Internal Medicine Hematology & Oncology
DX: C92.00 Acute myeloblastic leukemia, not having achieved remission (principal); Z45.2 Encounter for adjustment and management of vascular access device
CPT/HCPCS: 80053; 85007; 85025; J1642

== ENCOUNTER 2018-09-01 08:12 | Outpatient (CLI) | payer MEDICARE, OTHER, SELFPAY ==
[2018-09-01] VITALS (8 sets, daily range): BP systolic 98–105; BP diastolic 50–58; PULSE 58–68; RESP 18–20; TEMP 36.4–36.9; O2SAT 95; BMI 30.1
[2018-09-01 08:35] LABS: Basophils % 0.1 % (0.1-2.0); Eosinophils % 0.9 % (0.1-12.0); Lymphocytes # 1.1 K/mm3 (0.7-4.5); Mean Corpuscular HGB Conc 34.3 g/dL (31.8-35.4); Mean Corpuscular Hemoglobin 28.3 pg (27.0-31.2); Mean Corpuscular Volume 82.5 fl (80-94); Mean Platelet Volume 11.5 fl (7.4-10.4); Monocytes # 0.1 K/mm3 (0.1-1.0); Neutrophils # 0.1 K/mm3 (1.8-7.8); Red Blood Count 2.67 M/mm3 (4.60-6.20); Red Cell Distribution Width 15.1 % (11.5-17.5); White Blood Count 1.3 K/mm3 (4.8-10.8)
[2018-09-01 08:46] LABS: Alanine Aminotransferase 58 U/L (12-78); Albumin Level 2.7 gm/dL (3.4-5.0); Albumin/Globulin Ratio 0.8 (1.1-1.8); Alkaline Phosphatase 60 U/L (46-116); Anion Gap 13.6 mEq/L (5-15); Aspartate Amino Transferase 39 U/L (15-37); Bilirubin,Total 1.1 mg/dL (0.2-1.0); Blood Urea Nitrogen 18 mg/dL (7-18); Calcium 7.9 mg/dL (8.5-10.1); Carbon Dioxide 23 mmol/L (21.0-32.0); Chloride 108 mmol/L (98-107); Creatinine Clearance Estimated 82 mL/min (50-200); Creatinine,Serum 1.08 mg/dL (0.70-1.30); Estimated Glomerular Filt Rate 67 ml/min (>60); GFR (African American) 81 ML/MIN (>60); Globulin 3.5 gm/dl (1.3-3.2); Glucose 148 mg/dL (74-106); Potassium 3.6 mmoL/L (3.5-5.1); Sodium 141 mmol/L (136-145); Total Protein,Serum 6.2 gm/dL (6.4-8.2)
[2018-09-01 08:52] LABS: Hemoglobin 7.6 g/dL (14.1-18.0)
[2018-09-01 08:53] LABS: MANUAL DIFFERENTIAL MANUAL DIFFERENTIAL (MANUAL DIFF); Neutrophils % 7.1 % (37.0-80.0); Platelet Count 10 K/mm3 (142-424)
[2018-09-01 09:02] LABS: Lymphocytes % 66 % (10-50); Microcytosis 1+; Monocytes % 4 % (2-9); Neutrophils % 8 % (42-76); Platelet Estimate Marked Decrease; Total Cells Counted 50
[2018-09-01 13:55] LABS: Platelet Count 32 K/mm3 (142-424)
== END 2018-09-01 14:00 | disposition home or self-care (01) ==
LOC: INF 08:13
PROVIDERS: Visit Provider Internal Medicine Hematology & Oncology
DX: C92.00 Acute myeloblastic leukemia, not having achieved remission (principal)
CPT/HCPCS: 36430; 80053; 85007; 85025; 85049; 86900; 86901; J1642; P9034

== ENCOUNTER 2018-09-03 08:00 | Outpatient (CLI) | payer MEDICARE, OTHER, SELFPAY ==
[2018-09-03 08:14] VITALS: BMI 29.9
[2018-09-03 08:53] LABS: Basophils % 0.4 % (0.1-2.0); Eosinophils % 0.6 % (0.1-12.0); Lymphocytes % 91.6 % (10-50); Mean Corpuscular HGB Conc 33.3 g/dL (31.8-35.4); Mean Corpuscular Hemoglobin 27.6 pg (27.0-31.2); Mean Platelet Volume 7.8 fl (7.4-10.4); Monocytes % 2.4 % (1.7-9.3); Neutrophils # 0.1 K/mm3 (1.8-7.8); Red Blood Count 2.59 M/mm3 (4.60-6.20); White Blood Count 1.1 K/mm3 (4.8-10.8)
[2018-09-03 08:54] LABS: Hematocrit 21.5 % (42.0-52.0); Hemoglobin 7.2 g/dL (14.1-18.0); Platelet Count 28 K/mm3 (142-424)
[2018-09-03 08:56] LABS: MANUAL DIFFERENTIAL MANUAL DIFFERENTIAL (MANUAL DIFF)
[2018-09-03 08:57] LABS: Lymphocytes % 78 % (10-50); Monocytes % 2 % (2-9); Neutrophils % 6 % (42-76); Total Cells Counted 50
[2018-09-03 08:59] LABS: Platelet Estimate Marked Decrease
== END 2018-09-03 09:10 | disposition home or self-care (01) ==
LOC: INF 08:12
PROVIDERS: Visit Provider Internal Medicine Hematology & Oncology
DX: C92.00 Acute myeloblastic leukemia, not having achieved remission (principal)
CPT/HCPCS: 85007; 85025; J1642

== ENCOUNTER 2018-09-05 08:15 | Outpatient (CLI) | payer MEDICARE, OTHER, SELFPAY ==
[2018-09-05] VITALS (28 sets, daily range): BP systolic 99–137; BP diastolic 45–74; PULSE 57–71; RESP 18–20; TEMP 36.5–37.2; O2SAT 92–96; BMI 29.9
[2018-09-05 08:42] LABS: Basophils % 0.1 % (0.1-2.0); Eosinophils % 0.1 % (0.1-12.0); Lymphocytes # 0.9 K/mm3 (0.7-4.5); Lymphocytes % 92.2 % (10-50); Mean Corpuscular HGB Conc 32.7 g/dL (31.8-35.4); Mean Corpuscular Hemoglobin 27.5 pg (27.0-31.2); Mean Corpuscular Volume 84.2 fl (80-94); Mean Platelet Volume 9.8 fl (7.4-10.4); Monocytes % 1.9 % (1.7-9.3); Neutrophils # 0.1 K/mm3 (1.8-7.8); Red Blood Count 2.42 M/mm3 (4.60-6.20)
[2018-09-05 08:53] LABS: Neutrophils % 5.7 % (37.0-80.0)
[2018-09-05 08:54] LABS: Alanine Aminotransferase 74 U/L (12-78); Albumin Level 2.7 gm/dL (3.4-5.0); Albumin/Globulin Ratio 0.8 (1.1-1.8); Alkaline Phosphatase 61 U/L (46-116); Anion Gap 14.4 mEq/L (5-15); Aspartate Amino Transferase 49 U/L (15-37); Blood Urea Nitrogen 16 mg/dL (7-18); Calcium 7.8 mg/dL (8.5-10.1); Carbon Dioxide 24 mmol/L (21.0-32.0); Chloride 108 mmol/L (98-107); Creatinine Clearance Estimated 82 mL/min (50-200); Creatinine,Serum 1.08 mg/dL (0.70-1.30); Estimated Glomerular Filt Rate 67 ml/min (>60); GFR (African American) 81 ML/MIN (>60); Globulin 3.5 gm/dl (1.3-3.2); Glucose 160 mg/dL (74-106); Hematocrit 20.4 % (42.0-52.0); Hemoglobin 6.7 g/dL (14.1-18.0); Platelet Count 15 K/mm3 (142-424); Potassium 3.4 mmoL/L (3.5-5.1); Sodium 143 mmol/L (136-145); Total Protein,Serum 6.2 gm/dL (6.4-8.2)
[2018-09-05 08:55] LABS: MANUAL DIFFERENTIAL MANUAL DIFFERENTIAL (MANUAL DIFF)
[2018-09-05 09:32] LABS: Lymphocytes % 76 % (10-50); Monocytes % 2 % (2-9); Neutrophils % 10 % (42-76); Platelet Estimate Marked Decrease; Total Cells Counted 50
[2018-09-05 09:33] LABS: Schistocytes 1+; Tear Drop Cells 1+
[2018-09-05 18:29] LABS: Hemoglobin 7.7 g/dL (14.1-18.0)
[2018-09-05 18:30] LABS: Hematocrit 23.6 % (42.0-52.0); Platelet Count 50 K/mm3 (142-424)
== END 2018-09-05 18:52 | disposition home or self-care (01) ==
LOC: INF 08:37
PROVIDERS: Visit Provider Internal Medicine Hematology & Oncology
DX: C92.00 Acute myeloblastic leukemia, not having achieved remission (principal)
CPT/HCPCS: 36415; 36430; 80053; 85007; 85014; 85018; 85025; 85049; 86850; J1642; P9016; P9034

== ENCOUNTER 2018-09-08 08:00 | Outpatient (CLI) | payer MEDICARE, OTHER, SELFPAY ==
[2018-09-08 08:15] VITALS: BMI 20.7
[2018-09-08 08:42] LABS: Basophils % 0.3 % (0.1-2.0); Eosinophils % 0.5 % (0.1-12.0); Lymphocytes # 1.1 K/mm3 (0.7-4.5); Lymphocytes % 91.3 % (10-50); Mean Corpuscular HGB Conc 32.9 g/dL (31.8-35.4); Mean Corpuscular Hemoglobin 28.1 pg (27.0-31.2); Mean Corpuscular Volume 85.4 fl (80-94); Mean Platelet Volume 9.6 fl (7.4-10.4); Neutrophils # 0.1 K/mm3 (1.8-7.8); Red Blood Count 2.76 M/mm3 (4.60-6.20); Red Cell Distribution Width 14.7 % (11.5-17.5); White Blood Count 1.2 K/mm3 (4.8-10.8)
[2018-09-08 08:46] LABS: Hemoglobin 7.8 g/dL (14.1-18.0)
[2018-09-08 08:47] LABS: Hematocrit 23.6 % (42.0-52.0); Platelet Count 28 K/mm3 (142-424)
[2018-09-08 08:48] LABS: MANUAL DIFFERENTIAL MANUAL DIFFERENTIAL (MANUAL DIFF)
[2018-09-08 09:06] LABS: Lymphocytes % 84 % (10-50); Monocytes % 6 % (2-9); Neutrophils % 2 % (42-76); Total Cells Counted 50
[2018-09-08 09:07] LABS: Burr Cells 2+; Schistocytes 1+
[2018-09-08 09:08] LABS: Alanine Aminotransferase 82 U/L (12-78); Albumin Level 2.6 gm/dL (3.4-5.0); Albumin/Globulin Ratio 0.7 (1.1-1.8); Alkaline Phosphatase 63 U/L (46-116); Anion Gap 13.4 mEq/L (5-15); Aspartate Amino Transferase 53 U/L (15-37); Blood Urea Nitrogen 16 mg/dL (7-18); Calcium 7.8 mg/dL (8.5-10.1); Carbon Dioxide 24 mmol/L (21.0-32.0); Chloride 109 mmol/L (98-107); Creatinine Clearance Estimated 61 mL/min (50-200); Creatinine,Serum 0.99 mg/dL (0.70-1.30); Estimated Glomerular Filt Rate 74 ml/min (>60); GFR (African American) 90 ML/MIN (>60); Globulin 3.5 gm/dl (1.3-3.2); Glucose 153 mg/dL (74-106); Platelet Estimate Marked Decrease; Potassium 3.4 mmoL/L (3.5-5.1); Sodium 143 mmol/L (136-145); Tear Drop Cells 1+; Total Protein,Serum 6.1 gm/dL (6.4-8.2)
[2018-09-08 09:52] VITALS: BP 109/58; PULSE 69; RESP 20; TEMP 36.6; O2SAT 96
[2018-09-08 10:22] VITALS: BP 110/64; PULSE 71; RESP 18; O2SAT 96
[2018-09-08 10:52] VITALS: BP 109/56; PULSE 69; RESP 18; O2SAT 97
[2018-09-08 11:15] VITALS: BP 105/59; PULSE 70; RESP 18; O2SAT 96
== END 2018-09-08 11:15 | disposition home or self-care (01) ==
LOC: INF 08:21
PROVIDERS: Visit Provider Internal Medicine Hematology & Oncology
DX: Z51.11 Encounter for antineoplastic chemotherapy (principal); C92.00 Acute myeloblastic leukemia, not having achieved remission
CPT/HCPCS: 80053; 85007; 85025; 96413; J9025

== ENCOUNTER 2018-09-09 08:00 | Outpatient (CLI) | payer MEDICARE, OTHER, SELFPAY ==
[2018-09-09 08:50] VITALS: BP 135/67; PULSE 71; RESP 18; TEMP 36.8; O2SAT 96
[2018-09-09 09:20] VITALS: BP 131/65; PULSE 76; RESP 18; O2SAT 97
[2018-09-09 09:50] VITALS: BP 110/69; PULSE 74; RESP 18; O2SAT 96
[2018-09-09 10:15] VITALS: BP 103/64; PULSE 64; RESP 18; O2SAT 97
== END 2018-09-09 10:15 | disposition home or self-care (01) ==
LOC: INF 08:14
PROVIDERS: Visit Provider Internal Medicine Medical Oncology
DX: Z51.11 Encounter for antineoplastic chemotherapy (principal); C92.00 Acute myeloblastic leukemia, not having achieved remission
CPT/HCPCS: 96413; J9025

== ENCOUNTER 2018-09-10 08:00 | Outpatient (CLI) | payer MEDICARE, OTHER, SELFPAY ==
[2018-09-10] VITALS (12 sets, daily range): BP systolic 89–109; BP diastolic 41–79; PULSE 76–96; RESP 16–18; TEMP 36.7–37.1; O2SAT 94–97; BMI 29.9
[2018-09-10 08:38] LABS: Basophils % 0.5 % (0.1-2.0); Hematocrit 27.9 % (42.0-52.0); Hemoglobin 8.9 g/dL (14.1-18.0); Mean Corpuscular HGB Conc 31.9 g/dL (31.8-35.4); Mean Corpuscular Hemoglobin 28.8 pg (27.0-31.2); Mean Corpuscular Volume 90.1 fl (80-94); Mean Platelet Volume 11.2 fl (7.4-10.4); Monocytes % 1.5 % (1.7-9.3); Neutrophils # 0.1 K/mm3 (1.8-7.8); White Blood Count 1.1 K/mm3 (4.8-10.8)
[2018-09-10 08:47] LABS: Platelet Count 18 K/mm3 (142-424)
[2018-09-10 08:48] LABS: MANUAL DIFFERENTIAL MANUAL DIFFERENTIAL (MANUAL DIFF)
[2018-09-10 09:36] LABS: Lymphocytes % 76 % (10-50); Monocytes % 4 % (2-9); Neutrophils % 6 % (42-76); Total Cells Counted 50
[2018-09-10 09:37] LABS: Hypochromasia 1+; Platelet Estimate Marked Decrease
[2018-09-10 15:27] LABS: Platelet Count 21 K/mm3 (142-424)
== END 2018-09-10 16:10 | disposition home or self-care (01) ==
LOC: INF 08:13
PROVIDERS: Visit Provider Internal Medicine Medical Oncology
DX: C92.00 Acute myeloblastic leukemia, not having achieved remission (principal)
CPT/HCPCS: 36430; 85007; 85025; 85049; 86850; 86900; 86901; 96413; J9025; P9034

== ENCOUNTER 2018-09-10 19:34 | Observation (INO) ==
[2018-09-10 20:16] LABS: Basophils % 0.6 % (0.1-2.0); Eosinophils % 0.8 % (0.1-12.0); Hematocrit 25.8 % (42.0-52.0); Hemoglobin 8.5 g/dL (14.1-18.0); Lymphocytes # 0.8 K/mm3 (0.7-4.5); Lymphocytes % 84.5 % (10-50); Mean Corpuscular HGB Conc 32.9 g/dL (31.8-35.4); Mean Platelet Volume 9.2 fl (7.4-10.4); Monocytes % 2.4 % (1.7-9.3); Neutrophils # 0.1 K/mm3 (1.8-7.8); Red Blood Count 2.93 M/mm3 (4.60-6.20); Red Cell Distribution Width 15.1 % (11.5-17.5)
[2018-09-10 20:19] LABS: White Blood Count 0.9 K/mm3 (4.8-10.8)
[2018-09-10 20:20] LABS: Neutrophils % 11.6 % (37.0-80.0); Platelet Count 22 K/mm3 (142-424)
[2018-09-10 20:29] LABS: Albumin Level 2.8 gm/dL (3.4-5.0); Albumin/Globulin Ratio 0.7 (1.1-1.8); Anion Gap 14.7 mEq/L (5-15); Bilirubin,Total 1.8 mg/dL (0.2-1.0); C-Reactive Protein 10.5 mg/L (0.0-0.9); Calcium 8.2 mg/dL (8.5-10.1); Globulin 3.8 gm/dl (1.3-3.2); Total Protein,Serum 6.6 gm/dL (6.4-8.2)
[2018-09-10 20:49] LABS: Microscopic, Urine URINE MICROSCOPIC (MICROSCOPIC)
[2018-09-10 20:52] LABS: Appearance,Urine CLEAR (Clear); Bilirubin,Urine Negative (Negative); Blood, Urine 2+ (Negative); Color,Urine YELLOW (Yellow); Glucose,Urine (UA) TRACE (Negative); Ketones,Urine Negative (Negative); Leukocyte Esterase,Urine Negative (Negative); Protein,Urine 2+ (Negative); Specific Gravity, Urine 1.025 (1.005-1.030); Urobilinogen,Urine 0.2 EU/dl (0.2)
[2018-09-10 20:55] LABS: Erythrocyte Sedimentation Rate > 140 mm/hr (0-20)
[2018-09-10 21:12] LABS: Bacteria,Urine Trace /lpf
[2018-09-10 21:13] LABS: WBC,Urine Occasional #/hpf (0-3)
--- NOTE | 2018-09-10 21:31 | Emergency Department Note ---
ED Disposition Clinical Impression: Neutropenic fever Acute myelogenous leukemia Qualifiers: Leukemia Active/Remission status: without remission Qualified Code(s): C92.00 - Acute myeloblastic leukemia, not having achieved remission Disposition: Admitted as Observation Condition on Discharge: Good Referrals: Eduardo Sosa MD [Primary Care Provider] - - Critical Care Critical Care Time: No Attestation: On 09/10/18, the high probability of a clinically significant, sudden or life threatening deterioration of the following system(s) required my full and direct attention, intervention and personal management. The time I documented below is in addition to time spent performing reported procedures but includes the follow ing listed in this critical care notation. Medical Decision Making - Medical Records Medical records reviewed: Yes: I reviewed the patient's medical records. - Ravin Inquiry Pt receiving controlled substance: No Vital Signs: 09/10/18 19:46 09/10/18 19:58 Temperature 98.9 F 100.8 F H Temperature Source Oral Rectal Pulse Rate [Right] 64 Respiratory Rate 16 Blood Pressure [Right Arm] 141/77 H Blood Pressure Mean [Right Arm] 98 Blood Pressure Source [Right Arm] Automatic Cuff Blood Pressure Position [Right Arm] Sitting 02 Sat by Pulse Oximetry 95 Oxygen Delivery Method Room Air - Lab Data Lab results reviewed: Yes: I reviewed the patient's lab results. Lab Results 09/10/18 20:02: WBC 0.9 L*, RBC 2.93 L, Hgb 8.5 L, Hct 25.8 L, MCV 88.0, MCH 28.9, MCHC 32.9, RDW 15.1, Plt Count 22 L*, MPV 9.2, Neut % (Auto) 11.6 L, Lymph % (Auto) 84.5 H, Bea[place] % (Auto) 2.4, Eos % (Auto) 0.8, Baso % (Auto) 0.6, Neut # (Auto) 0.1 L*, Lymph # (Auto) 0.8, Bea[place]gard # (Auto) 0.0 L, Eos # (Auto) 0.0, Baso # (Auto) 0.0, ESR > 140 H 09/10/18 20:02: Sodium 135 L, Potassium 3.7, Chloride 102, Carbon Dioxide 22, Anion Gap 14.7, BUN 21 H D, Creatinine 1.24 D, Estimated Creat Clear 71, Estimated GFR 57 L, Est GFR ( Amer) 69 D, Glucose 161 H, Calcium 8.2 L, Total Bilirubin 1.8 H, AST 66 H, ALT 91 H, Alkaline Phosphatase 67, C-Reactive Protein 10.5 H, Total Protein 6.6, Albumin 2.8 L, Globulin 3.8 H, Albumin/Globulin Ratio 0.7 L 09/10/18 20:02: Lactate 1.9 09/10/18 20:45: Urine Color Yellow, Urine Appearance Clear, Urine pH 6.0, Ur Specific [place] 1.025, Urine Protein 2+, Urine Glucose (UA) Trace, Urine Ketones Negative, Urine Blood 2+, Urine Nitrate Negative, Urine Bilirubin Negative, Urine Urobilinogen 0.2, Ur Leukocyte Esterase Negative, Urine WBC Occasional, Urine Bacteria Trace Result diagrams: 09/10/18 20:02 09/10/18 20:02 Orders (Tests/Meds): ED MEDICATIONS Generic Name Dose Route Start Last Admin Trade Name Freq PRN Reason Stop Dose Admin Sodium Chloride 1,000 mls @ 999 mls/hr 09/10/18 20:00 09/10/18 20:07 Sod Chlor 0.9% 1000ml Bag IV 09/10/18 21:00 999 mls/hr .[id number] CELESTINO Administration Discontinued Medications Generic Name Dose Route Start Last Admin Trade Name Freq PRN Reason Stop Dose Admin Acetaminophen 1,000 mg 09/10/18 20:00 09/10/18 20:07 Tylenol 500mg Tablet PO 09/10/18 20:01 1,000 mg ONCE ONE Administration ORDERS Category Date Time Status Chest XR 2 view (NOT portable) [XR chest 2V] Stat Exams 09/10/18 20:00 Taken Complete Blood Count Auto Diff Stat Lab 09/10/18 20:02 Results Erythrocyte Sedimentation Rate Stat Lab 09/10/18 20:02 Results Blood Culture Stat Micro 09/10/18 20:02 Received - Radiology Data #1 Image(s): Chest Image Reviewed: Yes I reviewed the patient's radiology image Preliminary Findings: Abnormal (changes bilat ) - Physician Consults Physician Consulted: susy Reason -: Admission Additional Consult: alex Reason -: Pt condition Fever HPI - General Chief Complaint: Fever Stated Complaint: fever Time Seen by Provider: 09/10/18 20:35 Mode of Arrival: Ambulatory Source of Information: Patient, Spouse, Relative, Medical Record Limitations: No Limitations Description of Symptoms (Recalled from ER Triage Doc. by RN): Pt states he developed a temp of 100.4 after chemo today - History of Present Illness HPI Narrative: pt with fever after chemo this afternoon and also had plts - no cough or rash and no vomiting MD complaint: fever, weakness Onset (ago): hour(s) Context: on chemotherapy Associated symptoms: denies other symptoms Treatments prior to arrival fever: none - Related Data Home Medications Medication Instructions Recorded Confirmed Cholecalciferol (Vitamin D3) [D3 2,000 unit PO DAILY 03/28/17 09/10/18 Dots] Aspirin [Aspirin 81mg EC Tab] 81 mg PO DAILY 06/10/17 09/10/18 Fluconazole [Diflucan] 400 mg PO DAILY 06/10/17 09/10/18 acyclovir 400 mg tablet 400 mg PO TID 08/13/17 09/10/18 bisoprolol fumarate 10 mg tablet 5 mg PO DAILY tab 08/13/17 09/10/18 gysgcmub-xko-kmddc acid 300 1 tab PO DAILY tab 08/13/17 09/10/18 mcg-lycopene 600 mcg-lutein 300 mcg tablet levofloxacin 500 mg tablet 500 mg PO DAILY 04/10/18 09/10/18 ondansetron HCl 4 mg tablet 4 mg PO TID PRN 08/05/18 09/10/18 Allopurinol [Allopurinol 300mg 300 mg PO BID 09/08/18 09/10/18 tablet] Venetoclax [Venclexta] 100 mg PO DAILY 09/08/18 09/10/18 azaCITIDine [Azacitidine] 75 mg IJ DAILY 09/10/18 09/10/18 Previous Rx's Medication Instructions Recorded atorvastatin 40 mg tablet 40 mg PO DAILY #30 tab 03/25/18 Allergies Allergy/AdvReac Type Severity Reaction Status Date / Time No Known Allergies Allergy Verified 08/05/18 10:02 [facility] History - Hepatitis A Screen Drug use history?: No High risk sexual behaviors?: No History of sexually transmitted infection?: No Currently employed?: No Childcare worker?: No Do you have indoor plumbing?: Yes Do you have electricity?: Yes Attestation statement:: This patient has been screened for Hepatitis A risk factors. I have reviewed the patient's past medical history: Yes Medical History: Reports:: Arrhythmia, Atherosclerotic Heart Disease, Atrial Fibrillation, Cancer, Coronary Artery Disease, Hyperlipidemia, Hypertension Denies:: Diabetes Mellitus Type 1, Diabetes Mellitus Type 2, Internal Pacemaker, MRSA, Seizures Other Medical History: Reports: Hoarseness. Denies: Blood Transfusion Reaction Other Surgeries: Yes: Appendectomy, Cardiac Catheterization, Colonoscopy, Coronary Stent. No: Pacemaker Amputation: No Fractures: No Comment: Port inserted - Social History Smoking Status: Former smoker Tobacco Type: cigarettes # Packs/Day (cigarettes): 2 Alcohol Intake: never Alcohol Intake Frequency:: other Substance Use Type: denies use Occupational Status: retired Housing: house Household Members: spouse - Psychiatric History Expresses thoughts of harming self/others: None Suicide Plan Description: No Plan Family Hx:: Cancer, Coronary Artery Disease, Heart Attack, Hypertension, Stroke ROS Obtained: Yes All systems reviewed & no additional complaints - Constitutional Constitutional: Reports as per HPI, Reports fever(s), Reports weakness - Eyes Eyes: Denies change in vision - ENT Ears, Nose, Mouth, and Throat: Denies sore throat - Cardiovascular Cardiovascular: Denies chest pain - Respiratory Respiratory: No cough - Gastrointestinal Gastrointestingal: Denies: abdominal pain - Genitourinary Male Genitourinary: Denies flank pain, Denies hematuria - Musculoskeletal Musculoskeletal: Denies joint pain, Denies joint swelling - Integumentary/Breasts Skin/Breast: Denies rash - Neurologic Neurologic: Denies focal weakness, Denies seizure-like activity Physical Exam - General General appearance: alert - Head Head exam: normocephalic - Eye Eye exam: Present: PERRL, EOMI - ENT ENT exam: Present: mucous membranes moist - Neck Neck exam: Present: trachea midline - Respiratory Respiratory exam: Present: normal lung sounds bilaterally. Absent: respiratory distress - Cardiovascular Cardiovascular exam: Present: regular rate, systolic murmur, +S4 - Abdominal Exam Abdominal exam: Present: soft - Extremities Exam Extremities exam: Absent: calf tenderness - Neurological Exam Neurological exam: Present: alert, oriented X3, CN II-XII intact - Psychiatric Psychiatric exam: Present: normal affect - Skin Skin exam: Absent: rash
[2018-09-10 21:38] LABS: Lymphocytes % 66 % (10-50); Monocytes % 4 % (2-9); Neutrophils % 16 % (42-76); Total Cells Counted 50
[2018-09-11 06:16] LABS: Anion Gap 11.5 mEq/L (5-15); Calcium 7.9 mg/dL (8.5-10.1)
[2018-09-11 06:20] LABS: Eosinophils % 1.5 % (0.1-12.0); Lymphocytes # 0.8 K/mm3 (0.7-4.5); Lymphocytes % 85.1 % (10-50); Mean Corpuscular HGB Conc 32.7 g/dL (31.8-35.4); Mean Corpuscular Volume 87.5 fl (80-94); Mean Platelet Volume 9.6 fl (7.4-10.4); Monocytes % 3.2 % (1.7-9.3); Neutrophils # 0.1 K/mm3 (1.8-7.8); Red Blood Count 2.42 M/mm3 (4.60-6.20); Red Cell Distribution Width 14.8 % (11.5-17.5)
[2018-09-11 07:28] LABS: White Blood Count 0.9 K/mm3 (4.8-10.8)
[2018-09-11 07:29] LABS: Neutrophils % 10.1 % (37.0-80.0)
[2018-09-11 07:31] LABS: Hematocrit 21.2 % (42.0-52.0); Hemoglobin 6.9 g/dL (14.1-18.0); Platelet Count 15 K/mm3 (142-424)
--- NOTE | 2018-09-11 07:37 | Pharmacy Consult Notes ---
[facility] Pharmacy VTE Monitoring - Patient Demographics Admission date: 09/10/18 Report Date: 09/11/18 Time: 07:37 Allergies/Adverse Reactions: Patient Allergies No Known Allergies Allergy (Verified 09/10/18 22:56) Height: 1.78 m Weight: 92.669 kg Patient Problems: Current Active Problems (Updated 09/10/18 @ 22:00 by Donavan Mancera MD) Acute myelogenous leukemia (Chronic) Neutropenic fever (Acute) - VTE Risk Labs: VTE Related Lab Results Hgb 6.9 g/dL (14.1-18.0) L* 09/11/18 06:00 Hct 21.2 % (42.0-52.0) L* 09/11/18 06:00 Plt Count 15 K/mm3 (142-424) L* D 09/11/18 06:00 BUN 19 mg/dL (7-18) H 09/11/18 06:00 Creatinine 1.06 mg/dL (0.70-1.30) 09/11/18 06:00 Estimated Creat Clear 81 mL/min (50-200) 09/11/18 06:00 Was VTE Risk Assessment Performed: Yes VTE Score: 6 VTE Risk Level: Moderate Risk Clinical Trial Participant: No - Prophylaxis VTE Prophylaxis Ordered?: Yes Types of VTE Prophylaxis: TEDS Knee High
[2018-09-11 07:44] LABS: Lymphocytes % 68 % (10-50); Monocytes % 4 % (2-9); Neutrophils % 4 % (42-76); Total Cells Counted 25
[2018-09-11 07:48] LABS: Hypochromasia 1+
--- NOTE | 2018-09-11 08:13 | History & Physical Report ---
*Admission Date: 09/10/18 <Aga Berg 09/11/18 08:22> *Chief complaint: fever <Aga Berg 09/11/18 08:22> *History of present illness: Mr. 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 He is currently under the care of Dr. Monge of hematology/oncology. He has been getting chemo treatments and yesterday he got a platelet transfusion as well. His states about 4 PM he started chilling after the platelet transfusion and his temperature was 99.5. They did go home and his temperature went up to 100.9, therefore they came back to the emergency room. He was diagnosed with neutropenic fever and was admitted. He states he has had a cough for the past few days and does get short of air with exertion. He denies any pain, nausea, vomiting, diarrhea, or dysuria. His last fever was at 7:58 PM last night. This a.m. he states he feels well. <Aga Berg 09/11/18 08:22> [facility] History I have reviewed the patient's past medical history: Yes <Aga Berg 09/11/18 08:22> Medical History: Reports:: Arrhythmia, Atherosclerotic Heart Disease, Atrial Fibrillation, Cancer (Acute Myelogenous Leukemia), Coronary Artery Disease, Hyperlipidemia, Hypertension Denies:: Diabetes Mellitus Type 1, Diabetes Mellitus Type 2, Internal Pa cemaker, MRSA, Seizures <Aga Berg 09/11/18 08:22> *Have you ever received a pneumonia vaccine?: Yes (2017) <Aga Berg 09/11/18 08:22> *Have you received a flu vaccine this season?: Yes <Aga Berg 09/11/18 08:22> Other Medical History: Reports: Chemotherapy, Hoarseness. Denies: Blood Transfusion Reaction <Aga Berg 09/11/18 08:22> Other Surgeries: Yes: Appendectomy, Cardiac Catheterization, Colonoscopy, Coronary Stent, Other (left chest port implanted). No: Pacemaker <Aga Berg 09/11/18 08:22> Amputation: No <Aga Berg 09/11/18 08:22> Fractures: No <Aga Berg 09/11/18 08:22> - *Social History Educational Level: Completed High School <DerekmargueriteAga 09/11/18 08:22> Smoking Status: Former smoker <DerekmargueriteAga 09/11/18 08:22> Tobacco Type: cigarettes <DerekmargueriteAga 09/11/18 08:22> # Packs/Day (cigarettes): 2 <DerekmargueriteAga 09/11/18 08:22> Alcohol Intake: former <DerekmargueriteAga 09/11/18 08:22> Alcohol Intake Frequency:: holidays/special occasions only <MorenaAga 09/11/18 08:22> Substance Use Type: denies use <MorenaAga 09/11/18 08:22> *Occupational Status:: retired <MorenaAga 09/11/18 08:22> Housing: house <MorenaAga 09/11/18 08:22> Household Members: spouse <MorenaAga 09/11/18 08:22> *Travel in the last 8 weeks: None <MorenaAga 09/11/18 08:22> - Psychiatric History Expresses thoughts of harming self/others: None <MorenaAga 09/11/18 08:22> Suicide Plan Description: No Plan <MorenaAga 09/11/18 08:22> Family Hx:: Cancer <MorenaAga 09/11/18 08:22> Review of Systems - Constitutional Reports chills, Reports fever(s) <MorenaAga 09/11/18 08:22> - Eyes Denies blurry vision, Denies double vision <Aga Berg 09/11/18 08:22> - ENT Denies nasal congestion, Denies sore throat <Aga Berg 09/11/18 08:22> - *Cardiovascular Reports shortness of breath, Denies chest pain, Denies rapid, pounding, or irregular heartbeat <Aga Berg 09/11/18 08:22> - *Respiratory Reports cough, Reports shortness of breath, Denies wheezing <Aga Berg 09/11/18 08:22> - *Gastrointestinal Denies abdominal pain, Denies loose stools, Denies nausea, Denies vomiting <Aga Berg - 09/11/18 08:22> - *Genitourinary Denies difficulty urinating, Denies painful urination <Aga Berg - 09/11/18 08:22> - *Musculoskeletal Denies joint pain, Denies muscle weakness <Aga Berg - 09/11/18 08:22> - *Neurologic Reports weakness, Denies localized weakness, Denies headache(s), Denies seizure- like activity, Denies dizziness <Aga Berg - 09/11/18 08:22> Meds Home Medications Medication Instructions Recorded Confirmed Type Cholecalciferol (Vitamin D3) [D3 2,000 unit PO DAILY 03/28/17 09/10/18 History Dots] Aspirin [Aspirin 81mg EC Tab] 81 mg PO DAILY 06/10/17 09/10/18 History Fluconazole [Diflucan] 400 mg PO DAILY 06/10/17 09/10/18 History acyclovir 400 mg tablet 400 mg PO TID 08/13/17 09/10/18 History bisoprolol fumarate 10 mg tablet 5 mg PO DAILY tab 08/13/17 09/10/18 History xucyoeij-afr-usgai acid 300 1 tab PO DAILY tab 08/13/17 09/10/18 History mcg-lycopene 600 mcg-lutein 300 mcg tablet atorvastatin 40 mg tablet 40 mg PO DAILY #30 tab 03/25/18 09/10/18 Rx levofloxacin 500 mg tablet 500 mg PO DAILY 04/10/18 09/10/18 History ondansetron HCl 4 mg tablet 4 mg PO TID PRN 08/05/18 09/10/18 History Allopurinol [Allopurinol 300mg 300 mg PO BID 09/08/18 09/10/18 History tablet] Venetoclax [Venclexta] 100 mg PO DAILY 09/08/18 09/10/18 History azaCITIDine [Azacitidine] 135 mg IJ DIRECTED 09/10/18 09/11/18 History <Phoenix,Eduardo - 09/11/18 08:50> Allergies Allergy/AdvReac Type Severity Reaction Status Date / Time No Known Allergies Allergy Verified 09/10/18 22:56 <Phoenix,Eduardo - 09/11/18 08:50> Exam Vital signs and Labs for Last 24 Hours: Temp Pulse Resp BP Pulse Ox 98.6 F 70 18 129/69 93 L 09/11/18 07:44 09/11/18 07:44 09/11/18 07:44 09/11/18 07:44 09/11/18 07:44 Laboratory Results - last 24 hr 09/10/18 20:02: WBC 0.9 L*, RBC 2.93 L, Hgb 8.5 L, Hct 25.8 L, MCV 88.0, MCH 28.9, MCHC 32.9, RDW 15.1, Plt Count 22 L*, MPV 9.2, Neut % (Auto) 11.6 L, Lymph % (Auto) 84.5 H, Wayne % (Auto) 2.4, Eos % (Auto) 0.8, Baso % (Auto) 0.6, Neut # (Auto) 0.1 L*, Lymph # (Auto) 0.8, Wayne # (Auto) 0.0 L, Eos # (Auto) 0.0, Baso # (Auto) 0.0, Total Counted 50, Neutrophils % (Manual) 16 L, Lymphocytes % (Manual) 66 H, Monocytes % (Manual) 4, Blast Cells % 14.0, Platelet Estimate Moderate decrease, RBC Morphology Not Reportable, ESR > 140 H 09/10/18 20:02: Sodium 135 L, Potassium 3.7, Chloride 102, Carbon Dioxide 22, Anion Gap 14.7, BUN 21 H D, Creatinine 1.24 D, Estimated Creat Clear 71, Estimated GFR 57 L, Est GFR ( Amer) 69 D, Glucose 161 H, Calcium 8.2 L, Total Bilirubin 1.8 H, AST 66 H, ALT 91 H, Alkaline Phosphatase 67, C-Reactive Protein 10.5 H, Total Protein 6.6, Albumin 2.8 L, Globulin 3.8 H, Albumin/Globulin Ratio 0.7 L 09/10/18 20:02: Lactate 1.9 09/10/18 20:45: Urine Color Yellow, Urine Appearance Clear, Urine pH 6.0, Ur Specific Bells 1.025, Urine Protein 2+, Urine Glucose (UA) Trace, Urine Ketones Negative, Urine Blood 2+, Urine Nitrate Negative, Urine Bilirubin Negative, Urine Urobilinogen 0.2, Ur Leukocyte Esterase Negative, Urine WBC Occasional, Urine Bacteria Trace 09/11/18 06:00: WBC 0.9 L*, RBC 2.42 L, Hgb 6.9 L*, Hct 21.2 L*, MCV 87.5, MCH 28.6, MCHC 32.7, RDW 14.8, Plt Count 15 L* D, MPV 9.6, Neut % (Auto) 10.1 L, Lymph % (Auto) 85.1 H, Wayne % (Auto) 3.2, Eos % (Auto) 1.5, Baso % (Auto) 0.0 L, Neut # (Auto) 0.1 L*, Lymph # (Auto) 0.8, Wayne # (Auto) 0.0 L, Eos # (Auto) 0.0, Baso # (Auto) 0.0, Total Counted 25, Neutrophils % (Manual) 4 L, Lymphocytes % (Manual) 68 H, Atypical Lymphs % 16.0, Monocytes % (Manual) 4, Blast Cells % 8.0, Platelet Estimate Marked decrease, Hypochromasia 1+ 09/11/18 06:00: Sodium 140, Potassium 3.5, Chloride 108 H, Carbon Dioxide 24, Anion Gap 11.5, BUN 19 H, Creatinine 1.06, Estimated Creat Clear 81, Estimated GFR 68, Est GFR ( Amer) 83 D, Glucose 107 H D, Calcium 7.9 L Vital Signs - 24 hr 09/10/18 19:46 09/10/18 19:58 09/10/18 22:12 Temperature 98.9 F 100.8 F H 98.2 F Pulse Rate 70 Pulse Rate [Right] 64 Respiratory Rate 16 20 Blood Pressure 103/56 L Blood Pressure [Right Arm] 141/77 H 02 Sat by Pulse Oximetry 95 09/10/18 22:40 09/10/18 22:41 09/10/18 23:01 Temperature 98.8 F 98.3 F 98.3 F Pulse Rate Pulse Rate [Right] 68 Respiratory Rate 19 Blood Pressure Blood Pressure [Right Arm] 120/63 02 Sat by Pulse Oximetry 94 L 09/11/18 04:00 09/11/18 07:27 09/11/18 07:44 Temperature 97.8 F 98.6 F Pulse Rate Pulse Rate [Right] 71 70 Respiratory Rate 16 18 Blood Pressure Blood Pressure [Right Arm] 118/72 129/69 02 Sat by Pulse Oximetry 92 L 94 L 93 L <Eduardo Sosa - 09/11/18 08:50> Temp Pulse Resp BP Pulse Ox 98.6 F 70 18 129/69 93 L 09/11/18 07:44 09/11/18 07:44 09/11/18 07:44 09/11/18 07:44 09/11/18 07:44 Laboratory Results - last 24 hr 09/10/18 20:02: WBC 0.9 L*, RBC 2.93 L, Hgb 8.5 L, Hct 25.8 L, MCV 88.0, MCH 28.9, MCHC 32.9, RDW 15.1, Plt Count 22 L*, MPV 9.2, Neut % (Auto) 11.6 L, Lymph % (Auto) 84.5 H, Wayne % (Auto) 2.4, Eos % (Auto) 0.8, Baso % (Auto) 0.6, Neut # (Auto) 0.1 L*, Lymph # (Auto) 0.8, Wayne # (Auto) 0.0 L, Eos # (Auto) 0.0, Baso # (Auto) 0.0, Total Counted 50, Neutrophils % (Manual) 16 L, Lymphocytes % (Manual) 66 H, Monocytes % (Manual) 4, Blast Cells % 14.0, Platelet Estimate Moderate decrease, RBC Morphology Not Reportable, ESR > 140 H 09/10/18 20:02: Sodium 135 L, Potassium 3.7, Chloride 102, Carbon Dioxide 22, Anion Gap 14.7, BUN 21 H D, Creatinine 1.24 D, Estimated Creat Clear 71, Estimated GFR 57 L, Est GFR ( Amer) 69 D, Glucose 161 H, Calcium 8.2 L, Total Bilirubin 1.8 H, AST 66 H, ALT 91 H, Alkaline Phosphatase 67, C-Reactive Protein 10.5 H, Total Protein 6.6, Albumin 2.8 L, Globulin 3.8 H, Albumin/Globulin Ratio 0.7 L 09/10/18 20:02: Lactate 1.9 09/10/18 20:45: Urine Color Yellow, Urine Appearance Clear, Urine pH 6.0, Ur Specific Bells 1.025, Urine Protein 2+, Urine Glucose (UA) Trace, Urine Ketones Negative, Urine Blood 2+, Urine Nitrate Negative, Urine Bilirubin Negative, Urine Urobilinogen 0.2, Ur Leukocyte Esterase Negative, Urine WBC Occasional, Urine Bacteria Trace 09/11/18 06:00: WBC 0.9 L*, RBC 2.42 L, Hgb 6.9 L*, Hct 21.2 L*, MCV 87.5, MCH 28.6, MCHC 32.7, RDW 14.8, Plt Count 15 L* D, MPV 9.6, Neut % (Auto) 10.1 L, Lymph % (Auto) 85.1 H, Wayne % (Auto) 3.2, Eos % (Auto) 1.5, Baso % (Auto) 0.0 L, Neut # (Auto) 0.1 L*, Lymph # (Auto) 0.8, Wayne # (Auto) 0.0 L, Eos # (Auto) 0.0, Baso # (Auto) 0.0, Total Counted 25, Neutrophils % (Manual) 4 L, Lymphocytes % (Manual) 68 H, Atypical Lymphs % 16.0, Monocytes % (Manual) 4, Blast Cells % 8.0, Platelet Estimate Marked decrease, Hypochromasia 1+ 09/11/18 06:00: Sodium 140, Potassium 3.5, Chloride 108 H, Carbon Dioxide 24, Anion Gap 11.5, BUN 19 H, Creatinine 1.06, Estimated Creat Clear 81, Estimated GFR 68, Est GFR ( Amer) 83 D, Glucose 107 H D, Calcium 7.9 L <Aga Berg - 09/11/18 08:22> I & O for Last 24 hours: Intake & Output 09/08/18 09/09/18 09/10/18 09/11/18 23:59 23:59 23:59 23:59 Intake Total 1338 / 1338 Output Total 750 / 750 Balance 588 / 588 Weight 204 lb 7 oz 204 lb 4.8 oz <SheilaEduardo - 09/11/18 08:50> Intake & Output 09/08/18 09/09/18 09/10/18 09/11/18 11:59 11:59 11:59 11:59 Intake Total 1338 / 1338 Output Total 750 / 750 Balance 588 / 588 Weight 204 lb 4.8 oz [facility]/11/18 08:22> - Constitutional no acute distress [facility]> - *Routine HEENT Exam Head: Present: normocephalic <[facility]/11[facility] 08:22> Eye: Present: EOMI, PERRL <[facility] 09/11/18 08:22> ENT: Present: mucous membranes moist [facility] 09/11/18 08:22> - *Routine Neck Exam Present: supple. Absent: lymphadenopathy [facility]/11/18 08:22> - *Routine Respiratory Exam Present: rhonchi (left base) <[facility] 09/11/18 08:22> - *Routine Cardiovascular Exam Present: RRR <[facility] 09/11/18 08:22> - *Routine Abdominal Exam Present: soft, normoactive bowel sounds. Absent: tenderness <[facility] 09/11/18 08:22> - *Routine Extremities Exam Absent: cyanosis, clubbing, edema [facility] 09/11/18 08:22> - *Routine Skin Exam Present: pallor, warm. Absent: rash [facility] 09/11/18 08:22> - *Routine Neurological Exam Present: alert, oriented X3 <[facility] 09/11/18 08:22> H&P: Result - Impressions CXR - pending <Brett Berga 09/11/18 08:22> Assessment and Plan (1) Neutropenic fever Current visit: Yes Status: Acute Category: Medical Code(s): D70.9 - Neutropenia, unspecified; R50.81 - Fever presenting with conditions classified elsewhere (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 Qualifiers: Leukemia Active/Remission status: without remission Qualified Code(s): C92.00 - Acute myeloblastic leukemia, not having achieved remission Category: Medical Code(s): C92.00 - Acute myeloblastic leukemia, not having achieved remission (3) Anemia Current visit: No Status: Chronic Category: Medical Code(s): D64.9 - Anemia, unspecified (4) Coronary artery disease Current visit: No Status: Chronic Qualifiers: Coronary Disease-Associated Artery/Lesion type: [place] artery [place] vs. transplanted heart: [place] heart Associated angina: without angina Qualified Code(s): I25.10 - Atherosclerotic heart disease of [place] coronary artery without angina pectoris Category: Medical Code(s): I25.10 - Atherosclerotic heart disease of [place] coronary artery without angina pectoris (5) Hypertension Current visit: No Status: Chronic Qualifiers: Hypertension type: essential hypertension Qualified Code(s): I10 - Essential (primary) hypertension Category: Medical Code(s): I10 - Essential (primary) hypertension (6) [place] on CPAP Current visit: No Status: Chronic Category: Medical Code(s): G47.33 - O bstructive sleep apnea (adult) (pediatric); Z99.89 - Dependence on other enabling machines and devices (7) Presence of stent in right coronary artery Current visit: No Status: Chronic Category: Medical Code(s): Z95.5 - Presence of coronary angioplasty implant and graft <Eduardo Sosa - 09/11/18 08:50> (1) Neutropenic fever Current visit: Yes Status: Acute Category: Medical Code(s): D70.9 - Neutropenia, unspecified; R50.81 - Fever presenting with conditions classified elsewhere (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 Qualifiers: Leukemia Active/Remission status: without remission Qualified Code(s): C92.00 - Acute myeloblastic leukemia, not having achieved remission Category: Medical Code(s): C92.00 - Acute myeloblastic leukemia, not having achieved remission (3) Anemia Current visit: No Status: Chronic Category: Medical Code(s): D64.9 - Anemia, unspecified (4) Coronary artery disease Current visit: No Status: Chronic Qualifiers: Coronary Disease-Associated Artery/Lesion type: [place] artery [place] vs. transplanted heart: [place] heart Associated angina: without angina Qualified Code(s): I25.10 - Atherosclerotic heart disease of [place] coronary artery without angina pectoris Category: Medical Code(s): I25.10 - Atherosclerotic heart disease of [place] coronary artery without angina pectoris (5) Hypertension Current visit: No Status: Chronic Qualifiers: Hypertension type: essential hypertension Qualified Code(s): I10 - Essential (primary) hypertension Category: Medical Code(s): I10 - Essential (primary) hypertension (6) [place] on CPAP Current visit: No Status: Chronic Category: Medical Code(s): G47.33 - Obstructive sleep apnea (adult) (pediatric); Z99.89 - Dependence on other enabling machines and devices (7) Presence of stent in right coronary artery Current visit: No Status: Chronic Category: Medical Code(s): Z95.5 - Presence of coronary angioplasty implant and graft <Aga Berg - 09/11/18 08:10> - Assessment and plan all Dx Assessment and Plan for all problems:: Saw patient, agree with above note. <Eduardo oSsa - 09/11/18 08:50> H&H and platelet count have dropped. Awaiting chest x-ray and blood culture results. Dr. Monge has been consulted. We will continue IV antibiotics. <Aga Berg - 09/11/18 08:22>
--- NOTE | 2018-09-11 14:40 | Consult Report ---
*Admission Date: 09/10/18 *Reason for consult:: neutropenic fever *History of present illness: 72 yo wm with AML. treatment directed by . he is receiving chemotherapy here daily x 5 days q4 weeks and on oral chemo daily as prescribed by . he presented last night to ed with temp of 100.8. bp and other vitals normal. no obvious source of infection. blood cultures are pending. he was started on cef epime. port is not sore and no drainage. he feels ok this am. he has not had a fever since admission. his hgb this am is 6.9 and plts 15K. [facility] History Medical History: Reports:: Arrhythmia, Atherosclerotic Heart Disease, Atrial Fibrillation, Cancer (Acute Myelogenous Leukemia), Coronary Artery Disease, Hyperlipidemia, Hypertension Denies:: Diabetes Mellitus Type 1, Diabetes Mellitus Type 2, Internal Pacemaker, MRSA, Seizures *Have you ever received a pneumonia vaccine?: Yes (2017) *Have you received a flu vaccine this season?: Yes Other Medical History: Reports: Chemotherapy, Hoarseness. Denies: Blood Transfusion Reaction Other Surgeries: Yes: Appendectomy, Cardiac Catheterization, Colonoscopy, Coronary Stent, Other (left chest port implanted). No: Pacemaker Amputation: No Fractures: No - *Social History Educational Level: Completed High School Smoking Status: Former smoker Tobacco Type: cigarettes # Packs/Day (cigarettes): 2 Alcohol Intake: former Alcohol Intake Frequency:: holidays/special occasions only Substance Use Type: denies use *Occupational Status:: retired Housing: house Household Members: spouse *Travel in the last 8 weeks: None - Psychiatric History Expresses thoughts of harming self/others: None Suicide Plan Description: No Plan Family Hx:: Cancer Review of Systems - Constitutional Reports fever(s) - *Neurologic Reports weakness, Denies localized weakness, Denies headache(s), Denies seizure- like activity, Denies dizziness Meds Home Medications Medication Instructions Recorded Confirmed Type Cholecalciferol (Vitamin D3) [D3 2,000 unit PO DAILY 03/28/17 09/10/18 History Dots] Aspirin [Aspirin 81mg EC Tab] 81 mg PO DAILY 06/10/17 09/10/18 History Fluconazole [Diflucan] 400 mg PO DAILY 06/10/17 09/10/18 History acyclovir 400 mg tablet 400 mg PO TID 08/13/17 09/10/18 History bisoprolol fumarate 10 mg tablet 5 mg PO DAILY tab 08/13/17 09/10/18 History hnjuohjk-ogw-oacxz acid 300 1 tab PO DAILY tab 08/13/17 09/10/18 History mcg-lycopene 600 mcg-lutein 300 mcg tablet atorvastatin 40 mg tablet 40 mg PO DAILY #30 tab 03/25/18 09/10/18 Rx levofloxacin 500 mg tablet 500 mg PO DAILY 04/10/18 09/10/18 History ondansetron HCl 4 mg tablet 4 mg PO TID PRN 08/05/18 09/10/18 History Allopurinol [Allopurinol 300mg 300 mg PO BID 09/08/18 09/10/18 History tablet] Venetoclax [Venclexta] 200 mg PO DAILY 09/08/18 09/11/18 History azaCITIDine [Azacitidine] 135 mg IJ DIRECTED 09/10/18 09/11/18 History Allergies Allergy/AdvReac Type Severity Reaction Status Date / Time No Known Allergies Allergy Verified 09/10/18 22:56 Exam Vital signs and Labs for Last 24 Hours: Temp Pulse Resp BP Pulse Ox 98.5 F 68 20 102/78 L 95 09/11/18 13:30 09/11/18 13:30 09/11/18 13:30 09/11/18 13:30 09/11/18 13:30 Laboratory Results - last 24 hr 09/10/18 09:05: Blood Type Cancelled, Rho(D) Type Cancelled, Antibody Screen Negative, Crossmatch (AHG) See Detail 09/10/18 20:02: WBC 0.9 L*, RBC 2.93 L, Hgb 8.5 L, Hct 25.8 L, MCV 88.0, MCH 28.9, MCHC 32.9, RDW 15.1, Plt Count 22 L*, MPV 9.2, Neut % (Auto) 11.6 L, Lymph % (Auto) 84.5 H, [place] % (Auto) 2.4, Eos % (Auto) 0.8, Baso % (Auto) 0.6, Neut # (Auto) 0.1 L*, Lymph # (Auto) 0.8, [place] # (Auto) 0.0 L, Eos # (Auto) 0.0, Baso # (Auto) 0.0, Total Counted 50, Neutrophils % (Manual) 16 L, Lymphocytes % (Manual) 66 H, Monocytes % (Manual) 4, Blast Cells % 14.0, Platelet Estimate Moderate decrease, RBC Morphology Not Reportable, ESR > 140 H 09/10/18 20:02: Sodium 135 L, Potassium 3.7, Chloride 102, Carbon Dioxide 22, Anion Gap 14.7, BUN 21 H D, Creatinine 1.24 D, Estimated Creat Clear 71, Estimated GFR 57 L, Est GFR ( Amer) 69 D, Glucose 161 H, Calcium 8.2 L, Total Bilirubin 1.8 H, AST 66 H, ALT 91 H, Alkaline Phosphatase 67, C-Reactive Protein 10.5 H, Total Protein 6.6, Albumin 2.8 L, Globulin 3.8 H, Albumin/Globul in Ratio 0.7 L 09/10/18 20:02: Lactate 1.9 09/10/18 20:45: Urine Color Yellow, Urine Appearance Clear, Urine pH 6.0, Ur Specific [place] 1.025, Urine Protein 2+, Urine Glucose (UA) Trace, Urine Ketones Negative, Urine Blood 2+, Urine Nitrate Negative, Urine Bilirubin Negative, Urine Urobilinogen 0.2, Ur Leukocyte Esterase Negative, Urine WBC Occasional, Urine Bacteria Trace 09/11/18 06:00: WBC 0.9 L*, RBC 2.42 L, Hgb 6.9 L*, Hct 21.2 L*, MCV 87.5, MCH 28.6, MCHC 32.7, RDW 14.8, Plt Count 15 L* D, MPV 9.6, Neut % (Auto) 10.1 L, Lymph % (Auto) 85.1 H, [place] % (Auto) 3.2, Eos % (Auto) 1.5, Baso % (Auto) 0.0 L, Neut # (Auto) 0.1 L*, Lymph # (Auto) 0.8, [place] # (Auto) 0.0 L, Eos # (Auto) 0.0, Baso # (Auto) 0.0, Total Counted 25, Neutrophils % (Manual) 4 L, Lymphocytes % (Manual) 68 H, Atypical Lymphs % 16.0, Monocytes % (Manual) 4, Blast Cells % 8.0, Platelet Estimate Marked decrease, Hypochromasia 1+ 09/11/18 06:00: Sodium 140, Potassium 3.5, Chloride 108 H, Carbon Dioxide 24, Anion Gap 11.5, BUN 19 H, Creatinine 1.06, Estimated Creat Clear 81, Estimated GFR 68, Est GFR ( Amer) 83 D, Glucose 107 H D, Calcium 7.9 L 09/11/18 06:00: Magnesium 2.0 I & O for Last 24 hours: Intake & Output 09/09/18 09/10/18 09/11/18 09/12/18 11:59 11:59 11:59 11:59 Intake Total 1338 / 1338 360 / 360 Output Total 750 / 750 Balance 588 / 588 360 / 360 Weight 204 lb 4.8 oz Internal Medicine - CN: Reslt - Labs CBC & Chem 7: 09/11/18 06:00 09/11/18 06:00 Labs: Short CBC 09/10/18 09/11/18 Range/Units 20:02 06:00 WBC 0.9 L* 0.9 L* (4.8-10.8) K/mm3 Hgb 8.5 L 6.9 L* (14.1-18.0) g/dL Hct 25.8 L 21.2 L* (42.0-52.0) % Plt Count 22 L* 15 L* D (142-424) K/mm3 BMP 09/10/18 09/11/18 20:02 06:00 Sodium 135 L 140 Potassium 3.7 3.5 Chloride 102 108 H Carbon Dioxide 22 24 BUN 21 H D 19 H Creatinine 1.24 D 1.06 Glucose 161 H 107 H D Calcium 8.2 L 7.9 L Liver Function 09/10/18 Range/Units 20:02 Total Bilirubin 1.8 H (0.2-1.0) mg/dL AST 66 H (15-37) U/L ALT 91 H (12-78) U/L Alkaline Phosphatase 67 (46-116) U/L Albumin 2.8 L (3.4-5.0) gm/dL Urine 09/10/18 Range/Units 20:45 Urine Color Yellow (Yellow) Urine Appearance Clear (Clear) Urine pH 6.0 (5.0-8.5) Ur Specific [place] 1.025 (1.005-1.030) Urine Protein 2+ (Negative) Urine Glucose (UA) Trace (Negative) Assessment and Plan (1) Neutropenic fever Current visit: Yes Status: Acute Category: Medical Code(s): D70.9 - Neutropenia, unspecified; R50.81 - Fever presenting with conditions classified elsewhere (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 Qualifiers: Leukemia Active/Remission status: without remission Qualified Code(s): C92.00 - Acute myeloblastic leukemia, not having achieved remission Category: Medical Code(s): C92.00 - Acute myeloblastic leukemia, not having achieved remission (3) Anemia Current visit: No Status: Chronic Category: Medical Code(s): D64.9 - Anemia, unspecified (4) Coronary artery disease Current visit: No Status: Chronic Qualifiers: Coronary Disease-Associated Artery/Lesion type: [place] artery [place] vs. transplanted heart: [place] heart Associated angina: without angina Qualified Code(s): I25.10 - Atherosclerotic heart disease of [place] coronary artery without angina pectoris Category: Medical Code(s): I25.10 - Atherosclerotic heart disease of [place] coronary artery without angina pectoris (5) Hypertension Current visit: No Status: Chronic Qualifiers: Hypertension type: essential hypertension Qualified Code(s): I10 - Essential (primary) hypertension Category: Medical Code(s): I10 - Essential (primary) hypertension (6) BIB[place] on CPAP Current visit: No Status: Chronic Category: Medical Code(s): G47.33 - Obstructive sleep apnea (adult) (pediatric); Z99.89 - Dependence on other enabling machines and devices (7) Presence of stent in right coronary artery Current visit: No Status: Chronic Category: Medical Code(s): Z95.5 - Presence of coronary angioplasty implant and graft - Assessment and plan all Dx Assessment and Plan for all problems:: neutropenic fever- no obvious source. on cefepime and to continue prophylactic abx. afebrile since admission. recommend monitor for fever for 48 hours and if no fever and blood cultures negative could discharge on oral abx such as cipro 500 mg bid x 7 days. anemia- transfuse prbc for hgb <7. plts <20. he will receive transfusion today. AML- pt is under the care of . he is receiving iv chemo here m-f every 4 weeks. he is due today and tomorrow and we will proceed with treatment so that he remains on schedule. Stacey Monge MD
[2018-09-12 07:17] LABS: Uric Acid 2.1 mg/dL (2.6-7.2)
[2018-09-12 07:23] LABS: Basophils % 0.2 % (0.1-2.0); Eosinophils % 2.3 % (0.1-12.0); Hematocrit 27.1 % (42.0-52.0); Hemoglobin 8.8 g/dL (14.1-18.0); Lymphocytes # 0.8 K/mm3 (0.7-4.5); Lymphocytes % 80.3 % (10-50); Mean Corpuscular HGB Conc 32.4 g/dL (31.8-35.4); Mean Corpuscular Volume 88.3 fl (80-94); Mean Platelet Volume 8.5 fl (7.4-10.4); Monocytes % 2.8 % (1.7-9.3); Neutrophils # 0.1 K/mm3 (1.8-7.8); Red Blood Count 3.06 M/mm3 (4.60-6.20); Red Cell Distribution Width 14.7 % (11.5-17.5)
--- NOTE | 2018-09-12 08:17 | Progress Note ---
<Aga Berg - Last Filed: 09/12/18 08:14> Internal Medicine - PN: Subj *Date: 09/12/18 *Time: 08:14 Interval history: Patient states he is feeling well today. He has been up and had a shower. He slept well and ate a good breakfast. His temperature throughout the night was 99.2 and 99.3. Exam Vital signs and Labs for Last 24 Hours: Temp Pulse Resp BP Pulse Ox 98.7 F 106 H 16 105/55 L 93 L 09/12/18 08:06 09/12/18 08:06 09/12/18 08:06 09/12/18 08:06 09/12/18 08:06 Laboratory Results - last 24 hr 09/10/18 09:05: Blood Type Cancelled, Rho(D) Type Cancelled, Antibody Screen Negative, Crossmatch (AHG) See Detail 09/11/18 06:00: Magnesium 2.0 09/12/18 06:35: Uric Acid 2.1 L, Magnesium 1.9, Lactate Dehydrogenase 186 I & O for Last 24 hours: Intake & Output 09/09/18 09/10/18 09/11/18 09/12/18 11:59 11:59 11:59 11:59 Intake Total 1338 / 1338 920 / 920 Output Total 750 / 750 Balance 588 / 588 920 / 920 Weight 204 lb 4.8 oz 204 lb 4 oz - Constitutional no acute distress - *Routine Respiratory Exam Present: CTA bilaterally - *Routine Cardiovascular Exam Present: irregular rhythm - *Routine Abdominal Exam Present: soft, normoactive bowel sounds. Absent: tenderness - *Routine Extremities Exam Absent: cyanosis, clubbing, edema - *Routine Skin Exam Present: warm. 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 transplanted heart: [place] heart Associated angina: without angina Qualified Code(s): I25.10 - Atherosclerotic heart disease of [place] coronary artery without angina pectoris Category: Medical Code(s): I25.10 - Atherosclerotic heart disease of [place] coronary artery without angina pectoris (5) Hypertension Current visit: No Status: Chronic Qualifiers: Hypertension type: essential hypertension Qualified Code(s): I10 - Essential (primary) hypertension Category: Medical Code(s): I10 - Essential (primary) hypertension (6) BIB[place] on CPAP Current visit: No Status: Chronic Category: Medical Code(s): G47.33 - Obstructive sleep apnea (adult) (pediatric); Z99.89 - Dependence on other enabling machines and devices (7) Presence of stent in right coronary artery Current visit: No Status: Chronic Category: Medical Code(s): Z95.5 - Presence of coronary angioplasty implant and graft - Assessment and plan all Dx Assessment and Plan for all problems:: Patient has not run a fever over 100. His blood cultures are still pending. Labs are pending after blood and platelet transfusions. <Eduardo Sosa - Last Filed: 09/12/18 08:35> Internal Medicine - PN: Subj *Date: 09/12/18 *Time: 08:35 Exam Vital signs and Labs for Last 24 Hours: Temp Pulse Resp BP Pulse Ox 98.7 F 106 H 16 105/55 L 93 L 09/12/18 08:06 09/12/18 08:06 09/12/18 08:06 09/12/18 08:06 09/12/18 08:06 Laboratory Results - last 24 hr 09/10/18 09:05: Blood Type Cancelled, Rho(D) Type Cancelled, Antibody Screen Negative, Crossmatch (AHG) See Detail 09/11/18 06:00: Magnesium 2.0 09/12/18 06:35: Uric Acid 2.1 L, Magnesium 1.9, Lactate Dehydrogenase 186 09/12/18 06:35: WBC 1.0 L*, RBC 3.06 L D, Hgb 8.8 L, Hct 27.1 L, MCV 88.3, MCH 28.6, MCHC 32.4, RDW 14.7, Plt Count 45 L* D, MPV 8.5, Neut % (Auto) 14.4 L, Lymph % (Auto) 80.3 H, [place] % (Auto) 2.8, Eos % (Auto) 2.3, Baso % (Auto) 0.2, Neut # (Auto) 0.1 L*, Lymph # (Auto) 0.8, [place] # (Auto) 0.0 L, Eos # (Auto) 0.0, Baso # (Auto) 0.0 09/12/18 06:35: Sodium 140, Potassium 3.6, Chloride 108 H, Carbon Dioxide 21, Anion Gap 14.6, BUN 19 H, Creatinine 1.10, Estimated Creat Clear 78, Estimated GFR 66, Est GFR ( Amer) 79, Glucose 100, Calcium 8.2 L I & O for Last 24 hours: Intake & Output 09/09/18 09/10/18 09/11/18 09/12/18 23:59 23:59 23:59 23:59 Intake Total 2258 / 2258 0 / 0 Output Total 750 / 750 Balance 1508 / 1508 0 / 0 Weight 204 lb 7 oz 204 lb 4.8 oz 204 lb 4 oz Assessment and Plan (1) Neutropenic fever Current visit: Yes Status: Acute Category: Medical Code(s): D70.9 - Neutropenia, unspecified; R50.81 - Fever presenting with conditions classified elsewhere (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 transplanted heart: [place] heart Associated angina: without angina Qualified Code(s): I25.10 - Atherosclerotic heart disease of [place] coronary artery without angina pectoris Category: Medical Code(s): I25.10 - Atherosclerotic heart disease of [place] coronary artery without angina pectoris (5) Hypertension Current visit: No Status: Chronic Qualifiers: Hypertension type: essential hypertension Qualified Code(s): I10 - Essential (primary) hypertension Category: Medical Code(s): I10 - Essential (primary) hypertension (6) BIB[place] on CPAP Current visit: No Status: Chronic Category: Medical Code(s): G47.33 - Obstructive sleep apnea (adult) (pediatric); Z99.89 - Dependence on other enabling machines and devices (7) Presence of stent in right coronary artery Current visit: No Status: Chronic Category: Medical Code(s): Z95.5 - Presence of coronary angioplasty implant and graft - Assessment and plan all Dx Assessment and Plan for all problems:: Saw patient, agree with above note. Await labs, possible discharge late this evening on oral Cipro.
[2018-09-12 08:19] LABS: Anion Gap 14.6 mEq/L (5-15); Calcium 8.2 mg/dL (8.5-10.1)
[2018-09-12 08:31] LABS: Neutrophils % 14.4 % (37.0-80.0); Platelet Count 45 K/mm3 (142-424)
[2018-09-12 09:46] LABS: Eosinophils % 2 % (0-3); Hypochromasia 1+; Lymphocytes % 54 % (10-50); Monocytes % 4 % (2-9); Neutrophils % 14 % (42-76); Total Cells Counted 50
--- NOTE | 2018-09-12 13:02 | Discharge Summary ---
General - General Admission date:: 09/10/18 Discharge date: 09/12/18 HPI HPI: Mr. 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 He is currently under the care of Dr. Monge of hematology/oncology. He has been getting chemo treatments and yesterday he got a platelet transfusion as well. His states about 4 PM he started chilling after the platelet transfusion and his temperature was 99.5. They did go home and his temperature went up to 100.9, therefore they came back to the emergency room. He was diagnosed with neutropenic fever and was admitted. He states he has had a cough for the past few days and does get short of air with exertion. He denies any pain, nausea, vomiting, diarrhea, or dysuria. His last fever was at 7:58 PM last night. This a.m. he states he feels well. Hospital Course Hospital Course: The patient had a chest x-ray showing hypoaeration with probable combination of scarring and crowding of the pulmonary vessels in the bilateral lower lobes. There was nothing acute. He was started on prophylactic IV antibiotics and Dr. Monge was consulted. His H&H and platelet counts both dropped. Dr. Monge ordered a blood as well as platelet transfusion. She felt if he was afebrile for 48 hours with negative blood cultures, he could be discharged home on oral antibiotics such as Cipro for 7 days. His H&H did improve from 6.9/21.2 to 8.8/27.1 with transfusion. His platelets increased from 15 to 45. He did not run a fever over 100 for the rest of his stay and felt well. His blood cultures are still pending. It was felt he could be discharged home at 8 PM today (48 hours from admission) provided the cultures remain negative and he does not dev elop a fever. He will need to resume Levaquin which he has at home instead of starting Cipro and will follow-up in chemo/infusion on 09/15/2018. Objective Vital signs: Temp Pulse Resp BP Pulse Ox 98.7 F 106 H 16 105/55 L 93 L 09/12/18 08:06 09/12/18 08:06 09/12/18 08:06 09/12/18 08:06 09/12/18 08:06 Narrative: - Constitutional no acute distress - *Routine HEENT Exam Head: Present: normocephalic Eye: Present: EOMI, PERRL ENT: Present: mucous membranes moist - *Routine Neck Exam Present: supple. Absent: lymphadenopathy - *Routine Respiratory Exam Present: rhonchi (left base) - *Routine Cardiovascular Exam Present: RRR - *Routine Abdominal Exam Present: soft, normoactive bowel sounds. Absent: tenderness - *Routine Extremities Exam Absent: cyanosis, clubbing, edema - *Routine Skin Exam Present: pallor, warm. Absent: rash - *Routine Neurological Exam Present: alert, oriented X3 Results Labs on day of discharge: Labs from last 24 hours 09/12/18 09/12/18 09/12/18 06:35 06:35 06:35 WBC 1.0 L* RBC 3.06 L D Hgb 8.8 L Hct 27.1 L MCV 88.3 MCH 28.6 MCHC 32.4 RDW 14.7 Plt Count 45 L* D MPV 8.5 Neut % (Auto) 14.4 L Lymph % (Auto) 80.3 H [place] % (Auto) 2.8 Eos % (Auto) 2.3 Baso % (Auto) 0.2 Neut # (Auto) 0.1 L* Lymph # (Auto) 0.8 [place] # (Auto) 0.0 L Eos # (Auto) 0.0 Baso # (Auto) 0.0 Total Counted 50 Neutrophils % (Manual) 14 L Band Neutrophils % 2.0 Lymphocytes % (Manual) 54 H Atypical Lymphs % 18.0 Monocytes % (Manual) 4 Eosinophils % (Manual) 2 Blast Cells % 6.0 Platelet Estimate Marked decrease Hypochromasia 1+ Sodium 140 Potassium 3.6 Chloride 108 H Carbon Dioxide 21 Anion Gap 14.6 BUN 19 H Creatinine 1.10 Estimated Creat Clear 78 Estimated GFR 66 Est GFR ( Amer) 79 Glucose 100 Uric Acid 2.1 L Calcium 8.2 L Magnesium 1.9 Lactate Dehydrogenase 186 Blood Type Rho(D) Type Antibody Screen Crossmatch ([facility]) 09/10/18 09:05 WBC RBC Hgb Hct MCV MCH MCHC RDW Plt Count MPV Neut % (Auto) Lymph % (Auto) [place] % (Auto) Eos % (Auto) Baso % (Auto) Neut # (Auto) Lymph # (Auto) [place] # (Auto) Eos # (Auto) Baso # (Auto) Total Counted Neutrophils % (Manual) Band Neutrophils % Lymphocytes % (Manual) Atypical Lymphs % Monocytes % (Manual) Eosinophils % (Manual) Blast Cells % Platelet Estimate Hypochromasia Sodium Potassium Chloride Carbon Dioxide Anion Gap BUN Creatinine Estimated Creat Clear Estimated GFR Est GFR ( Amer) Glucose Uric Acid Calcium Magnesium Lactate Dehydrogenase Blood Type Cancelled Rho(D) Type Cancelled Antibody Screen Cancelled Crossmatch (AHG) See Detail DS: Diagnosis - Discharge Diagnosis (1) Neutropenic fever Status: Acute (2) Acute myelogenous leukemia Status: Chronic (3) Anemia Status: Chronic (4) Coronary artery disease Status: Chronic (5) Hypertension Status: Chronic (6) BIB[place]NA on CPAP Status: Chronic (7) Presence of stent in right coronary artery Status: Chronic Discharge Plan - Patient Discharge Instructions ACTIVITY: Continue current activity DIET: continue same diet Patient Instructions: DI for Blood Transfusion, DI for Chemotherapy -- Adult, DI for High Blood Pressure, DI for Neutropenic Fever - Follow up Plan Follow up with: Eduardo Sosa MD [Primary Care Provider] - (as needed) Disposition: Home, Self-Snf Medications: Home Medications Medication Instructions Recorded Confirmed Type Cholecalciferol (Vitamin D3) [D3 2,000 unit PO DAILY 03/28/17 09/10/18 History Dots] Aspirin [Aspirin 81mg EC Tab] 81 mg PO DAILY 06/10/17 09/10/18 History Fluconazole [Diflucan] 400 mg PO DAILY 06/10/17 09/10/18 History acyclovir 400 mg tablet 400 mg PO TID 08/13/17 09/10/18 History bisoprolol fumarate 10 mg tablet 5 mg PO DAILY tab 08/13/17 09/10/18 History wewquiwh-yel-lllbm acid 300 1 tab PO DAILY tab 08/13/17 09/10/18 History mcg-lycopene 600 mcg-lutein 300 mcg tablet atorvastatin 40 mg tablet 40 mg PO DAILY #30 tab 03/25/18 09/10/18 Rx levofloxacin 500 mg tablet 500 mg PO DAILY 04/10/18 09/10/18 History ondansetron HCl 4 mg tablet 4 mg PO TID PRN 08/05/18 09/10/18 History Allopurinol [Allopurinol 300mg 300 mg PO BID 09/08/18 09/10/18 History tablet] Venetoclax [Venclexta] 200 mg PO DAILY 09/08/18 09/11/18 History azaCITIDine [Azacitidine] 135 mg IJ DIRECTED 09/10/18 09/11/18 History Prescriptions/Medication Reconciliation: Continued acyclovir 400 mg tablet 400 mg PO TID ldgdyjhp-zxp-feidj acid 300 mcg-lycopene 600 mcg-lutein 300 mcg tablet 1 tab PO DAILY tab atorvastatin 40 mg tablet 40 mg PO DAILY #30 tab levofloxacin 500 mg tablet 500 mg PO DAILY bisoprolol fumarate 10 mg tablet 5 mg PO DAILY tab ondansetron HCl 4 mg tablet 4 mg PO TID PRN PRN Reason: Nausea Cholecalciferol (Vitamin D3) [D3 Dots] 2,000 unit PO DAILY Aspirin [Aspirin 81mg EC Tab] 81 mg PO DAILY Fluconazole [Diflucan] 400 mg PO DAILY Venetoclax [Venclexta] 200 mg PO DAILY Allopurinol [Allopurinol 300mg tablet] 300 mg PO BID azaCITIDine [Azacitidine] 135 mg IJ DIRECTED
[2018-09-12 16:18] VITALS: BP 103/57
== END 2018-09-12 20:31 | disposition home or self-care (01) ==
LOC: 2ND 19:34 → ER 19:34 → 2ND 22:19
PROVIDERS: ADMIT Family Medicine; ATTEND Family Medicine
DX: Z08 Encounter for follow-up examination after completed treatment for malignant neoplasm; C92.00 Acute myeloblastic leukemia, not having achieved remission; D70.9 Neutropenia, unspecified; Z79.899 Other long term (current) drug therapy; Z92.21 Personal history of antineoplastic chemotherapy; E78.5 Hyperlipidemia, unspecified; I25.10 Atherosclerotic heart disease of native coronary artery without angina pectoris; I10 Essential (primary) hypertension; Z95.5 Presence of coronary angioplasty implant and graft; Z79.82 Long term (current) use of aspirin; R50.81 Fever presenting with conditions classified elsewhere; G47.33 Obstructive sleep apnea (adult) (pediatric)
CPT/HCPCS: 36415; 36430; 71020; 71046; 80048; 80053; 81001; 83605; 83615; 83735; 84550; 85007; 85025; 85049; 85651; 86140; 86850; 86900; 86901; 87040; 96365; 96367; 96413; 99284; G0378; J2405; J9025; P9016; P9034

== ENCOUNTER 2018-09-15 08:21 | Outpatient (CLI) | payer MEDICARE, OTHER, SELFPAY ==
[2018-09-15] VITALS (7 sets, daily range): BP systolic 114–134; BP diastolic 49–78; PULSE 65–67; RESP 18; TEMP 36.6–36.7; O2SAT 97; BMI 30.1
[2018-09-15 08:59] LABS: Basophils % 0.7 % (0.1-2.0); Eosinophils % 0.6 % (0.1-12.0); Hematocrit 26.9 % (42.0-52.0); Hemoglobin 8.8 g/dL (14.1-18.0); Lymphocytes # 0.8 K/mm3 (0.7-4.5); Lymphocytes % 90.6 % (10-50); Mean Corpuscular HGB Conc 32.7 g/dL (31.8-35.4); Mean Corpuscular Hemoglobin 28.8 pg (27.0-31.2); Mean Corpuscular Volume 87.9 fl (80-94); Mean Platelet Volume 9.6 fl (7.4-10.4); Neutrophils # 0.1 K/mm3 (1.8-7.8); Red Blood Count 3.06 M/mm3 (4.60-6.20); Red Cell Distribution Width 14.4 % (11.5-17.5)
[2018-09-15 09:03] LABS: Platelet Count 19 K/mm3 (142-424); White Blood Count 0.8 K/mm3 (4.8-10.8)
[2018-09-15 09:05] LABS: MANUAL DIFFERENTIAL MANUAL DIFFERENTIAL (MANUAL DIFF)
[2018-09-15 09:10] LABS: Alanine Aminotransferase 66 U/L (12-78); Albumin Level 2.7 gm/dL (3.4-5.0); Albumin/Globulin Ratio 0.7 (1.1-1.8); Alkaline Phosphatase 69 U/L (46-116); Aspartate Amino Transferase 38 U/L (15-37); Bilirubin,Total 1.4 mg/dL (0.2-1.0); Blood Urea Nitrogen 29 mg/dL (7-18); Calcium 8.4 mg/dL (8.5-10.1); Carbon Dioxide 23 mmol/L (21.0-32.0); Chloride 110 mmol/L (98-107); Creatinine Clearance Estimated 65 mL/min (50-200); Creatinine,Serum 1.36 mg/dL (0.70-1.30); Estimated Glomerular Filt Rate 51 ml/min (>60); GFR (African American) 62 ML/MIN (>60); Globulin 3.8 gm/dl (1.3-3.2); Glucose 137 mg/dL (74-106); Sodium 144 mmol/L (136-145); Total Protein,Serum 6.5 gm/dL (6.4-8.2)
[2018-09-15 09:34] LABS: Lymphocytes % 88 % (10-50); Neutrophils % 2 % (42-76); Platelet Estimate Marked Decrease; Total Cells Counted 50
[2018-09-15 09:35] LABS: RBC Morphology Normal
--- NOTE | 2018-09-15 15:41 | PC.NURSE ---
09/15/18-929. pt cbc results returned. pt's wbc-0.8-md aware. hgb-8.8 and plt-19. pt to get platelet pheresis today per standing order. platelets to be ordered from [facility] in [place] and to leave and return when called once platelets arrive to the facility.
[2018-09-15 15:56] LABS: Platelet Count 54 K/mm3 (142-424)
== END 2018-09-15 15:20 | disposition home or self-care (01) ==
LOC: INF 08:21
PROVIDERS: Visit Provider Internal Medicine Hematology & Oncology
DX: C92.00 Acute myeloblastic leukemia, not having achieved remission (principal)
CPT/HCPCS: 36430; 80053; 85007; 85025; 85049; 86900; 86901; J1642; P9034

== ENCOUNTER 2018-09-17 08:05 | Outpatient (CLI) | payer MEDICARE, OTHER, SELFPAY ==
[2018-09-17 08:16] VITALS: BMI 29.2
[2018-09-17 08:50] LABS: Basophils % 0.4 % (0.1-2.0); Eosinophils % 0.7 % (0.1-12.0); Lymphocytes # 0.5 K/mm3 (0.7-4.5); Mean Corpuscular HGB Conc 32.8 g/dL (31.8-35.4); Mean Corpuscular Hemoglobin 28.5 pg (27.0-31.2); Mean Corpuscular Volume 86.8 fl (80-94); Monocytes % 4.8 % (1.7-9.3); Neutrophils # 0.1 K/mm3 (1.8-7.8); Red Blood Count 2.74 M/mm3 (4.60-6.20)
[2018-09-17 09:12] LABS: White Blood Count 0.6 K/mm3 (4.8-10.8)
[2018-09-17 09:13] LABS: Hematocrit 23.8 % (42.0-52.0); Hemoglobin 7.8 g/dL (14.1-18.0); Neutrophils % 8.1 % (37.0-80.0); Platelet Count 28 K/mm3 (142-424)
[2018-09-17 09:14] LABS: MANUAL DIFFERENTIAL MANUAL DIFFERENTIAL (MANUAL DIFF)
[2018-09-17 09:40] VITALS: BP 119/71; PULSE 74; RESP 20; TEMP 36.6; O2SAT 98
[2018-09-17 10:47] LABS: Lymphocytes % 68 % (10-50); Neutrophils % 8 % (42-76); Platelet Estimate Marked Decrease; Total Cells Counted 25
[2018-09-17 10:48] LABS: RBC Morphology Normal
== END 2018-09-17 09:40 | disposition home or self-care (01) ==
LOC: INF 08:15
PROVIDERS: Visit Provider Internal Medicine Hematology & Oncology
DX: C92.00 Acute myeloblastic leukemia, not having achieved remission (principal); Z45.2 Encounter for adjustment and management of vascular access device
CPT/HCPCS: 85007; 85025; J1642

== ENCOUNTER 2018-09-19 08:00 | Outpatient (CLI) | payer MEDICARE, OTHER, SELFPAY ==
[2018-09-19] VITALS (9 sets, daily range): BP systolic 111–119; BP diastolic 43–74; PULSE 68–98; RESP 18–20; TEMP 36.9–37.1; O2SAT 95–98; BMI 29.9
[2018-09-19 08:46] LABS: Basophils % 0.2 % (0.1-2.0); Eosinophils % 0.5 % (0.1-12.0); Lymphocytes # 0.5 K/mm3 (0.7-4.5); Mean Corpuscular HGB Conc 32.5 g/dL (31.8-35.4); Mean Corpuscular Hemoglobin 28.9 pg (27.0-31.2); Mean Corpuscular Volume 88.7 fl (80-94); Mean Platelet Volume 8.4 fl (7.4-10.4); Monocytes % 1.4 % (1.7-9.3); Red Blood Count 2.47 M/mm3 (4.60-6.20); Red Cell Distribution Width 14.2 % (11.5-17.5)
[2018-09-19 08:55] LABS: White Blood Count 0.5 K/mm3 (4.8-10.8)
[2018-09-19 08:56] LABS: Hematocrit 21.9 % (42.0-52.0); Hemoglobin 7.1 g/dL (14.1-18.0)
[2018-09-19 08:57] LABS: MANUAL DIFFERENTIAL MANUAL DIFFERENTIAL (MANUAL DIFF); Platelet Count 10 K/mm3 (142-424)
[2018-09-19 08:59] LABS: Alanine Aminotransferase 54 U/L (12-78); Albumin Level 2.5 gm/dL (3.4-5.0); Albumin/Globulin Ratio 0.8 (1.1-1.8); Alkaline Phosphatase 62 U/L (46-116); Anion Gap 12.1 mEq/L (5-15); Aspartate Amino Transferase 34 U/L (15-37); Bilirubin,Total 1.1 mg/dL (0.2-1.0); Blood Urea Nitrogen 26 mg/dL (7-18); Carbon Dioxide 25 mmol/L (21.0-32.0); Chloride 111 mmol/L (98-107); Creatinine Clearance Estimated 88 mL/min (50-200); Creatinine,Serum 0.95 mg/dL (0.70-1.30); Estimated Glomerular Filt Rate 78 ml/min (>60); GFR (African American) 94 ML/MIN (>60); Globulin 3.2 gm/dl (1.3-3.2); Glucose 146 mg/dL (74-106); Potassium 3.1 mmoL/L (3.5-5.1); Sodium 145 mmol/L (136-145); Total Protein,Serum 5.7 gm/dL (6.4-8.2)
[2018-09-19 09:34] LABS: Lymphocytes % 84 % (10-50); Neutrophils % 4 % (42-76); Platelet Estimate Marked Decrease; RBC Morphology Normal; Total Cells Counted 25
[2018-09-19 14:55] LABS: Platelet Count 47 K/mm3 (142-424)
== END 2018-09-19 15:15 | disposition home or self-care (01) ==
LOC: INF 08:11
PROVIDERS: Visit Provider Internal Medicine Hematology & Oncology
DX: C92.00 Acute myeloblastic leukemia, not having achieved remission (principal); Z45.2 Encounter for adjustment and management of vascular access device
CPT/HCPCS: 36430; 80053; 85007; 85025; 85049; 86900; 86901; J1642; P9034

== ENCOUNTER 2018-09-22 08:23 | Outpatient (CLI) | payer MEDICARE, OTHER, SELFPAY ==
[2018-09-22] VITALS (25 sets, daily range): BP systolic 118–152; BP diastolic 58–78; PULSE 55–70; RESP 18–66; TEMP 36.4–37.1; O2SAT 95–97; BMI 30.1
[2018-09-22 08:34] LABS: Basophils % 0.9 % (0.1-2.0); Eosinophils % 1.6 % (0.1-12.0); Lymphocytes # 0.4 K/mm3 (0.7-4.5); Lymphocytes % 87.2 % (10-50); Mean Corpuscular HGB Conc 32.7 g/dL (31.8-35.4); Mean Corpuscular Hemoglobin 28.8 pg (27.0-31.2); Mean Corpuscular Volume 88.1 fl (80-94); Mean Platelet Volume 15.6 fl (7.4-10.4); Monocytes % 2.9 % (1.7-9.3); Red Blood Count 2.29 M/mm3 (4.60-6.20); Red Cell Distribution Width 13.7 % (11.5-17.5)
[2018-09-22 08:48] LABS: Neutrophils % 7.4 % (37.0-80.0)
[2018-09-22 08:49] LABS: Alanine Aminotransferase 51 U/L (12-78); Albumin Level 2.4 gm/dL (3.4-5.0); Albumin/Globulin Ratio 0.7 (1.1-1.8); Alkaline Phosphatase 60 U/L (46-116); Anion Gap 12.1 mEq/L (5-15); Aspartate Amino Transferase 32 U/L (15-37); Bilirubin,Total 1.1 mg/dL (0.2-1.0); Blood Urea Nitrogen 17 mg/dL (7-18); Calcium 8.1 mg/dL (8.5-10.1); Carbon Dioxide 26 mmol/L (21.0-32.0); Chloride 109 mmol/L (98-107); Creatinine Clearance Estimated 89 mL/min (50-200); Creatinine,Serum 0.95 mg/dL (0.70-1.30); Estimated Glomerular Filt Rate 78 ml/min (>60); GFR (African American) 94 ML/MIN (>60); Globulin 3.4 gm/dl (1.3-3.2); Glucose 149 mg/dL (74-106); Hemoglobin 6.6 g/dL (14.1-18.0); Potassium 3.1 mmoL/L (3.5-5.1); Sodium 144 mmol/L (136-145); Total Protein,Serum 5.8 gm/dL (6.4-8.2); White Blood Count 0.5 K/mm3 (4.8-10.8)
[2018-09-22 08:50] LABS: Hematocrit 20.1 % (42.0-52.0); MANUAL DIFFERENTIAL MANUAL DIFFERENTIAL (MANUAL DIFF); Platelet Count 18 K/mm3 (142-424)
[2018-09-22 09:31] LABS: Lymphocytes % 84 % (10-50); Neutrophils % 4 % (42-76); RBC Morphology Normal; Total Cells Counted 25
[2018-09-22 09:32] LABS: Hypochromasia 1+; Platelet Estimate Marked Decrease
[2018-09-22 16:23] LABS: Hematocrit 22.3 % (42.0-52.0); Hemoglobin 7.4 g/dL (14.1-18.0); Platelet Count 41 K/mm3 (142-424)
== END 2018-09-22 16:39 | disposition home or self-care (01) ==
LOC: INF 08:24
PROVIDERS: Visit Provider Internal Medicine Hematology & Oncology
DX: C92.00 Acute myeloblastic leukemia, not having achieved remission (principal)
CPT/HCPCS: 36415; 36430; 80053; 85007; 85014; 85018; 85025; 85049; 86850; J1642; P9016; P9034

== ENCOUNTER 2018-09-24 08:00 | Outpatient (CLI) | payer MEDICARE, OTHER, SELFPAY ==
[2018-09-24 08:11] VITALS: BMI 29.9
[2018-09-24 08:35] LABS: Basophils % 0.5 % (0.1-2.0); Eosinophils % 0.2 % (0.1-12.0); Lymphocytes # 0.5 K/mm3 (0.7-4.5); Lymphocytes % 92.3 % (10-50); Mean Corpuscular HGB Conc 32.2 g/dL (31.8-35.4); Mean Corpuscular Hemoglobin 28.5 pg (27.0-31.2); Mean Corpuscular Volume 88.5 fl (80-94); Mean Platelet Volume 8.5 fl (7.4-10.4); Monocytes % 0.9 % (1.7-9.3); Red Blood Count 2.62 M/mm3 (4.60-6.20); Red Cell Distribution Width 13.5 % (11.5-17.5)
[2018-09-24 08:40] LABS: Neutrophils % 6.2 % (37.0-80.0)
[2018-09-24 08:41] LABS: Hemoglobin 7.5 g/dL (14.1-18.0); White Blood Count 0.5 K/mm3 (4.8-10.8)
[2018-09-24 08:42] LABS: Hematocrit 23.2 % (42.0-52.0); Platelet Count 24 K/mm3 (142-424)
[2018-09-24 08:43] LABS: MANUAL DIFFERENTIAL MANUAL DIFFERENTIAL (MANUAL DIFF)
[2018-09-24 09:40] LABS: Lymphocytes % 88 % (10-50); Neutrophils % 4 % (42-76); Platelet Estimate Marked Decrease; RBC Morphology Normal; Total Cells Counted 25
== END 2018-09-24 09:00 | disposition home or self-care (01) ==
LOC: INF 08:09
PROVIDERS: Visit Provider Internal Medicine Hematology & Oncology
DX: C92.00 Acute myeloblastic leukemia, not having achieved remission (principal); Z45.2 Encounter for adjustment and management of vascular access device
CPT/HCPCS: 85007; 85025; J1642

== ENCOUNTER 2018-09-26 08:00 | Outpatient (CLI) | payer MEDICARE, OTHER, SELFPAY ==
[2018-09-26] VITALS (24 sets, daily range): BP systolic 120–171; BP diastolic 50–80; PULSE 54–65; RESP 16–18; TEMP 26.6–36.9; O2SAT 97–99; BMI 29.9
[2018-09-26 08:34] LABS: Lymphocytes # 0.4 K/mm3 (0.7-4.5); Lymphocytes % 94.7 % (10-50); Mean Corpuscular HGB Conc 32.7 g/dL (31.8-35.4); Mean Corpuscular Hemoglobin 27.1 pg (27.0-31.2); Mean Corpuscular Volume 82.9 fl (80-94); Mean Platelet Volume 9.3 fl (7.4-10.4); Monocytes % 1.6 % (1.7-9.3); Red Blood Count 2.61 M/mm3 (4.60-6.20); Red Cell Distribution Width 13.1 % (11.5-17.5)
[2018-09-26 08:43] LABS: Neutrophils % 3.8 % (37.0-80.0)
[2018-09-26 08:46] LABS: Alanine Aminotransferase 50 U/L (12-78); Albumin Level 2.5 gm/dL (3.4-5.0); Albumin/Globulin Ratio 0.7 (1.1-1.8); Alkaline Phosphatase 63 U/L (46-116); Anion Gap 10.6 mEq/L (5-15); Aspartate Amino Transferase 31 U/L (15-37); Bilirubin,Total 1.1 mg/dL (0.2-1.0); Blood Urea Nitrogen 15 mg/dL (7-18); Calcium 8.5 mg/dL (8.5-10.1); Carbon Dioxide 26 mmol/L (21.0-32.0); Chloride 108 mmol/L (98-107); Creatinine Clearance Estimated 88 mL/min (50-200); Creatinine,Serum 0.91 mg/dL (0.70-1.30); Estimated Glomerular Filt Rate 82 ml/min (>60); GFR (African American) 99 ML/MIN (>60); Globulin 3.5 gm/dl (1.3-3.2); Glucose 149 mg/dL (74-106); Potassium 3.6 mmoL/L (3.5-5.1); Sodium 141 mmol/L (136-145)
[2018-09-26 08:52] LABS: Hematocrit 21.6 % (42.0-52.0); Hemoglobin 7.1 g/dL (14.1-18.0); White Blood Count 0.4 K/mm3 (4.8-10.8)
[2018-09-26 08:53] LABS: MANUAL DIFFERENTIAL MANUAL DIFFERENTIAL (MANUAL DIFF); Platelet Count 16 K/mm3 (142-424)
[2018-09-26 09:31] LABS: Lymphocytes % 76 % (10-50); Neutrophils % 4 % (42-76); RBC Morphology Normal; Total Cells Counted 25
[2018-09-26 09:32] LABS: Platelet Estimate Marked Decrease
--- NOTE | 2018-09-26 13:51 | PC.NURSE ---
1347 - BLOOD TRANSFUSION STARTED AT 100ML/HR AT THIS TIME.
--- NOTE | 2018-09-26 14:21 | PC.NURSE ---
1417 - INCREASED RATE TO 150ML/HR AT THIS TIME.
--- NOTE | 2018-09-26 16:01 | PC.NURSE ---
1557 - BLOOD TRANSFUSION STARTED INFUSING AT 100 ML/HR AT THIS TIME.
--- NOTE | 2018-09-26 16:35 | PC.NURSE ---
1627 - INCREASED RATE TO 150 ML/HR AT THIS TIME.
[2018-09-26 20:01] LABS: Hematocrit 26.3 % (42.0-52.0); Hemoglobin 8.7 g/dL (14.1-18.0)
[2018-09-26 22:19] LABS: Platelet Count 42 K/mm3 (142-424)
== END 2018-09-26 19:47 | disposition home or self-care (01) ==
LOC: INF 08:17
PROVIDERS: Visit Provider Internal Medicine Hematology & Oncology
DX: C92.00 Acute myeloblastic leukemia, not having achieved remission (principal); Z45.2 Encounter for adjustment and management of vascular access device
CPT/HCPCS: 36430; 80053; 85007; 85014; 85018; 85025; 85049; 86850; P9016; P9034

== ENCOUNTER 2018-09-29 08:00 | Outpatient (CLI) | payer MEDICARE, OTHER, SELFPAY ==
[2018-09-29 08:12] VITALS: BMI 30.1
[2018-09-29 08:40] LABS: Eosinophils % 2.8 % (0.1-12.0); Hematocrit 25.4 % (42.0-52.0); Hemoglobin 8.4 g/dL (14.1-18.0); Lymphocytes # 0.3 K/mm3 (0.7-4.5); Lymphocytes % 66.8 % (10-50); Mean Corpuscular HGB Conc 32.9 g/dL (31.8-35.4); Mean Corpuscular Hemoglobin 27.5 pg (27.0-31.2); Mean Corpuscular Volume 83.6 fl (80-94); Mean Platelet Volume 9.1 fl (7.4-10.4); Monocytes % 9.1 % (1.7-9.3); Neutrophils # 0.1 K/mm3 (1.8-7.8); Neutrophils % 21.3 % (37.0-80.0); Red Blood Count 3.04 M/mm3 (4.60-6.20)
[2018-09-29 08:43] LABS: MANUAL DIFFERENTIAL MANUAL DIFFERENTIAL (MANUAL DIFF); Platelet Count 29 K/mm3 (142-424); White Blood Count 0.4 K/mm3 (4.8-10.8)
[2018-09-29 08:51] LABS: Alanine Aminotransferase 57 U/L (12-78); Albumin Level 2.5 gm/dL (3.4-5.0); Albumin/Globulin Ratio 0.7 (1.1-1.8); Alkaline Phosphatase 64 U/L (46-116); Anion Gap 10.6 mEq/L (5-15); Aspartate Amino Transferase 33 U/L (15-37); Bilirubin,Total 0.9 mg/dL (0.2-1.0); Blood Urea Nitrogen 16 mg/dL (7-18); Calcium 8.5 mg/dL (8.5-10.1); Carbon Dioxide 27 mmol/L (21.0-32.0); Chloride 106 mmol/L (98-107); Creatinine Clearance Estimated 89 mL/min (50-200); Creatinine,Serum 0.96 mg/dL (0.70-1.30); Estimated Glomerular Filt Rate 77 ml/min (>60); GFR (African American) 93 ML/MIN (>60); Globulin 3.6 gm/dl (1.3-3.2); Glucose 150 mg/dL (74-106); Potassium 3.6 mmoL/L (3.5-5.1); Sodium 140 mmol/L (136-145); Total Protein,Serum 6.1 gm/dL (6.4-8.2)
[2018-09-29 09:49] LABS: Lymphocytes % 96 % (10-50); Neutrophils % 4 % (42-76); Total Cells Counted 25
[2018-09-29 09:51] LABS: Platelet Estimate Marked Decrease; RBC Morphology Normal
== END 2018-09-29 09:00 | disposition home or self-care (01) ==
LOC: INF 08:14
PROVIDERS: Visit Provider Internal Medicine Hematology & Oncology
DX: C92.00 Acute myeloblastic leukemia, not having achieved remission (principal); Z45.2 Encounter for adjustment and management of vascular access device
CPT/HCPCS: 80053; 85007; 85025; J1642

== ENCOUNTER 2018-10-01 08:00 | Outpatient (CLI) | payer MEDICARE, OTHER, SELFPAY ==
[2018-10-01 08:13] VITALS: BMI 29.4
[2018-10-01 08:21] LABS: Eosinophils % 0.3 % (0.1-12.0); Hematocrit 25.8 % (42.0-52.0); Hemoglobin 8.6 g/dL (14.1-18.0); Lymphocytes # 0.3 K/mm3 (0.7-4.5); Lymphocytes % 83.1 % (10-50); Mean Corpuscular HGB Conc 33.2 g/dL (31.8-35.4); Mean Corpuscular Hemoglobin 27.3 pg (27.0-31.2); Mean Corpuscular Volume 82.4 fl (80-94); Mean Platelet Volume 9.7 fl (7.4-10.4); Red Blood Count 3.13 M/mm3 (4.60-6.20); Red Cell Distribution Width 12.9 % (11.5-17.5)
[2018-10-01 08:44] LABS: White Blood Count 0.4 K/mm3 (4.8-10.8)
[2018-10-01 08:46] LABS: Neutrophils % 11.6 % (37.0-80.0); Platelet Count 39 K/mm3 (142-424)
[2018-10-01 08:47] LABS: MANUAL DIFFERENTIAL MANUAL DIFFERENTIAL (MANUAL DIFF)
[2018-10-01 09:23] LABS: Lymphocytes % 70 % (10-50); Monocytes % 6 % (2-9); Neutrophils % 10 % (42-76); Platelet Estimate Marked Decrease; Total Cells Counted 50
== END 2018-10-01 09:30 | disposition home or self-care (01) ==
LOC: INF 08:16
PROVIDERS: Visit Provider Internal Medicine Hematology & Oncology
DX: C92.00 Acute myeloblastic leukemia, not having achieved remission (principal)
CPT/HCPCS: 85007; 85025

== ENCOUNTER 2018-10-01 22:23 | Observation (INO) ==
[2018-10-01 22:55] LABS: Basophils % 0.3 % (0.1-2.0); Eosinophils % 0.2 % (0.1-12.0); Hematocrit 26.3 % (42.0-52.0); Hemoglobin 8.6 g/dL (14.1-18.0); Lymphocytes # 0.3 K/mm3 (0.7-4.5); Lymphocytes % 68.8 % (10-50); Mean Corpuscular HGB Conc 32.6 g/dL (31.8-35.4); Mean Corpuscular Volume 82.2 fl (80-94); Mean Platelet Volume 8.9 fl (7.4-10.4); Monocytes % 5.6 % (1.7-9.3); Neutrophils # 0.1 K/mm3 (1.8-7.8); Neutrophils % 25.1 % (37.0-80.0); Red Cell Distribution Width 12.9 % (11.5-17.5)
[2018-10-01 22:57] LABS: White Blood Count 0.4 K/mm3 (4.8-10.8)
[2018-10-01 22:58] LABS: Platelet Count 46 K/mm3 (142-424)
[2018-10-01 23:06] LABS: Albumin Level 2.6 gm/dL (3.4-5.0); Albumin/Globulin Ratio 0.7 (1.1-1.8); Anion Gap 11.8 mEq/L (5-15); Bilirubin,Total 0.7 mg/dL (0.2-1.0); Calcium 8.6 mg/dL (8.5-10.1); Total Protein,Serum 6.6 gm/dL (6.4-8.2)
[2018-10-01 23:25] LABS: Lymphocytes % 52 % (10-50); Myelocytes % 8 (0-1); Neutrophils % 12 % (42-76); Total Cells Counted 25
[2018-10-01 23:26] LABS: Tear Drop Cells 1+
[2018-10-01 23:44] LABS: Microscopic, Urine URINE MICROSCOPIC (MICROSCOPIC)
[2018-10-01 23:46] LABS: Appearance,Urine CLEAR (Clear); Bilirubin,Urine Negative (Negative); Blood, Urine Negative (Negative); Color,Urine YELLOW (Yellow); Glucose,Urine (UA) Negative (Negative); Ketones,Urine Negative (Negative); Leukocyte Esterase,Urine Negative (Negative); PH,Urine 5.5 (5.0-8.5); Protein,Urine TRACE (Negative); Specific Gravity, Urine 1.025 (1.005-1.030); Urobilinogen,Urine 0.2 EU/dl (0.2)
--- NOTE | 2018-10-01 23:49 | Emergency Department Note ---
ED Disposition Clinical Impression: Neutropenic fever Leukemia Qualifiers: Leukemia type: unspecified Leukemia Active/Remission status: in remission Qualified Code(s): C95.91 - Leukemia, unspecified, in remission Disposition: Admitted as Observation Condition on Discharge: Fair Referrals: Eduardo Sosa MD [Primary Care Provider] - - Critical Care Critical Care Time: No Attestation: On 10/01/18, the high probability of a clinically significant, sudden or life threatening deterioration of the following system(s) required my full and direct attention, intervention and personal management. The time I documented below is in addition to time spent performing reported procedures but includes the following listed in this critical care notation. Medical Decision Making - Medical Records Medical records reviewed: Yes: I reviewed the patient's medical records. - [place] Inquiry Pt receiving controlled substance: No Vital Signs: 10/01/18 22:35 Temperature 99.1 F Temperature Source Oral Pulse Rate [Right Apical] 84 Respiratory Rate 18 Blood Pressure [Right Arm] 131/68 Blood Pressure Mean [Right Arm] 89 02 Sat by Pulse Oximetry 98 Oxygen Delivery Method Room Air - Lab Data Lab results reviewed: Yes: I reviewed the patient's lab results. Lab Results 10/01/18 22:40: WBC 0.4 L*, RBC 3.20 L, Hgb 8.6 L, Hct 26.3 L, MCV 82.2, MCH 26.8 L, MCHC 32.6, RDW 12.9, Plt Count 46 L*, MPV 8.9, Neut % (Auto) 25.1 L, Ly mph % (Auto) 68.8 H, [place] % (Auto) 5.6, Eos % (Auto) 0.2, Baso % (Auto) 0.3, Neut # (Auto) 0.1 L*, Lymph # (Auto) 0.3 L, [place] # (Auto) 0.0 L, Eos # (Auto) 0.0, Baso # (Auto) 0.0, Total Counted 25, Neutrophils % (Manual) 12 L, Lymphocytes % (Manual) 52 H, Atypical Lymphs % 16.0, Metamyelocytes % 4.0 H, Myelocytes % 8 H, Blast Cells % 8.0, Platelet Estimate Marked decrease, Poikilocytosis 1+, Tear Drop Cells 1+ 10/01/18 22:40: Sodium 137, Potassium 3.8, Chloride 103, Carbon Dioxide 26, Anion Gap 11.8, BUN 17, Creatinine 0.91, Estimated Creat Clear 89, Estimated GFR 82, Est GFR ( Amer) 99, Glucose 179 H, Calcium 8.6, Total Bilirubin 0.7, AST 38 H, ALT 65, Alkaline Phosphatase 69, Total Protein 6.6, Albumin 2.6 L, Globulin 4.0 H, Albumin/Globulin Ratio 0.7 L 10/01/18 22:55: Lactate 1.3 10/01/18 23:39: Urine Color Yellow, Urine Appearance Clear, Urine pH 5.5, Ur Specific [place] 1.025, Urine Protein Trace, Urine Glucose (UA) Negative, Urine Ketones Negative, Urine Blood Negative, Urine Nitrate Negative, Urine Bilirubin Negative, Urine Urobilinogen 0.2, Ur Leukocyte Esterase Negative, Urine WBC 3-5, Ur Squamous Epith Cells 3-5, Urine Bacteria 1+ Result diagrams: 10/01/18 22:40 10/01/18 22:40 Orders (Tests/Meds): ORDERS Category Date Time Status Blood Culture Stat Micro 10/01/18 22:40 Received - Physician Consults Physician Consulted: william Reason -: Admission Fever HPI - General Chief Complaint: Fever Stated Complaint: fever Time Seen by Provider: 10/01/18 22:50 Mode of Arrival: Ambulatory Source of Information: Patient, Spouse, Relative, Medical Record Limitations: No Limitations Description of Symptoms (Recalled from ER Triage Doc. by RN): PT C/O FEVER OF 102, RUNNY NOSE, COUGH, SNEEZING. PT SATES HE CALLED HIS PCP AND WAS INSTRUCTED TO TAKE CLARITIN AND TYLENOL. PT STATES HIS FEVER INCREASED SO SHE WAS TOLD TO BRING HIM HERE. PT HAS HX OF LEUKEMIA. - History of Present Illness HPI Narrative: wm with hx of leukemia and had fever tonight and has hx of neuropenia - has uri sx but no other c/o was admitted with fever a few weeks ago MD complaint: fever, weakness Onset (ago): hour(s) Temperature Source: oral Context: on chemotherapy Associated symptoms: nasal congestion Relieving factors: acetaminophen Treatments prior to arrival fever: acetaminophen - Related Data Home Medications Medication Instructions Recorded Confirmed Cholecalciferol (Vitamin D3) [D3 2,000 unit PO DAILY 03/28/17 10/01/18 Dots] Aspirin [Aspirin 81mg EC Tab] 81 mg PO DAILY 06/10/17 10/01/18 Fluconazole [Diflucan] 400 mg PO DAILY 06/10/17 10/01/18 acyclovir 400 mg tablet 400 mg PO TID 08/13/17 10/01/18 bisoprolol fumarate 10 mg tablet 5 mg PO DAILY tab 08/13/17 10/01/18 cbebaouv-umo-yexty acid 300 1 tab PO DAILY tab 08/13/17 10/01/18 mcg-lycopene 600 mcg-lutein 300 mcg tablet levofloxacin 500 mg tablet 500 mg PO DAILY 04/10/18 10/01/18 ondansetron HCl 4 mg tablet 4 mg PO TID PRN 08/05/18 10/01/18 Venetoclax [Venclexta] 200 mg PO DAILY 09/08/18 10/01/18 azaCITIDine [Azacitidine] 135 mg IV DIRECTED 09/10/18 10/01/18 Previous Rx's Medication Instructions Recorded atorvastatin 40 mg tablet 40 mg PO DAILY #30 tab 09/26/18 Allergies Allergy/AdvReac Type Severity Reaction Status Date / Time No Known Allergies Allergy Verified 09/10/18 22:56 [facility] History - Hepatitis A Screen Drug use history?: No High risk sexual behaviors?: No History of sexually transmitted infection?: No Currently employed?: No Childcare worker?: No Do you have indoor plumbing?: Yes Do you have electricity?: Yes Attestation statement:: This patient has been screened for Hepatitis A risk factors. I have reviewed the patient's past medical history: Yes Medical History: Reports:: Arrhythmia, Atherosclerotic Heart Disease, Atrial Fibrillation, Cancer (Acute Myelogenous Leukemia), Coronary Artery Disease, Hyperlipidemia, Hypertension Denies:: Diabetes Mellitus Type 1, Diabetes Mellitus Type 2, Internal Pacema ker, MRSA, Seizures Other Medical History: Reports: Chemotherapy, Hoarseness. Denies: Blood Transfusion Reaction Other Surgeries: Yes: Appendectomy, Cardiac Catheterization, Colonoscopy, Coronary Stent, Other (left chest port implanted). No: Pacemaker Amputation: No Fractures: No Comment: Port inserted - Social History Smoking Status: Former smoker Tobacco Type: cigarettes # Packs/Day (cigarettes): 2 Alcohol Intake: never Alcohol Intake Frequency:: holidays/special occasions only Substance Use Type: denies use Occupational Status: retired Housing: house Household Members: spouse Family Hx:: Cancer ROS Obtained: Yes All systems reviewed & no additional complaints - Constitutional Constitutional: Reports as per HPI, Reports fatigue, Reports fever(s) - Eyes Eyes: Denies change in vision - ENT Ears, Nose, Mouth, and Throat: Denies epistaxis, Reports nasal congestion - Cardiovascular Cardiovascular: Denies chest pain - Respiratory Respiratory: No cough - Gastrointestinal Gastrointestingal: Denies: diarrhea - Genitourinary Male Genitourinary: Denies hematuria - Musculoskeletal Musculoskeletal: Denies joint pain - Integumentary/Breasts Skin/Breast: Denies rash - Neurologic Neurologic: Denies seizure-like activity Physical Exam - General General appearance: alert - Head Head exam: normocephalic - Eye Eye exam: Present: PERRL, EOMI - ENT ENT exam: Present: mucous membranes dry - Neck Neck exam: Present: trachea midline - Respiratory Respiratory exam: Absent: respiratory distress - Cardiovascular Cardiovascular exam: Present: regular rate - Abdominal Exam Abdominal exam: Present: soft - Extremities Exam Extremities exam: Present: full ROM - Neurological Exam Neurological exam: Present: alert, CN II-XII intact - Psychiatric Psychiatric exam: Present: normal affect - Skin Skin exam: Absent: rash
[2018-10-01 23:51] LABS: Bacteria,Urine 1+ /lpf
[2018-10-02 06:26] LABS: Anion Gap 11.5 mEq/L (5-15); Calcium 8.6 mg/dL (8.5-10.1)
[2018-10-02 06:29] LABS: Basophils % 0.5 % (0.1-2.0); Eosinophils % 0.2 % (0.1-12.0); Hemoglobin 8.5 g/dL (14.1-18.0); Lymphocytes # 0.4 K/mm3 (0.7-4.5); Lymphocytes % 77.6 % (10-50); Mean Corpuscular HGB Conc 32.7 g/dL (31.8-35.4); Mean Corpuscular Volume 82.6 fl (80-94); Mean Platelet Volume 8.8 fl (7.4-10.4); Monocytes % 8.6 % (1.7-9.3); Neutrophils # 0.1 K/mm3 (1.8-7.8); Red Blood Count 3.15 M/mm3 (4.60-6.20)
[2018-10-02 06:40] LABS: Neutrophils % 13.1 % (37.0-80.0); Platelet Count 40 K/mm3 (142-424); White Blood Count 0.5 K/mm3 (4.8-10.8)
--- NOTE | 2018-10-02 07:21 | Pharmacy Consult Notes ---
[facility] Pharmacy VTE Monitoring - Patient Demographics Admission date: 10/02/18 Report Date: 10/02/18 Time: 07:20 Allergies/Adverse Reactions: Patient Allergies No Known Allergies Allergy (Verified 10/02/18 01:19) Height: 1.78 m Weight: 91.654 kg Patient Problems: Current Active Problems (Updated 10/02/18 @ 00:19 by Donavan Mancera MD) Leukemia (Acute) Neutropenic fever (Acute) - VTE Risk Labs: VTE Related Lab Results Hgb 8.5 g/dL (14.1-18.0) L 10/02/18 05:45 Hct 26.0 % (42.0-52.0) L 10/02/18 05:45 Plt Count 40 K/mm3 (142-424) L* 10/02/18 05:45 BUN 12 mg/dL (7-18) D 10/02/18 05:45 Creatinine 0.76 mg/dL (0.70-1.30) 10/02/18 05:45 Estimated Creat Clear 85 mL/min (50-200) 10/02/18 05:45 Was VTE Risk Assessment Performed: Yes VTE Score: 3 VTE Risk Level: Low Risk - Prophylaxis VTE Prophylaxis Ordered?: Yes Types of VTE Prophylaxis: TEDS Knee High Location of Applied Device: Bilateral Lower Extremeties - VTE Diagnosis Confirmed Treatment or plan recommended: Continue Current Treatment
--- NOTE | 2018-10-02 08:32 | History & Physical Report ---
*Admission Date: 10/02/18 <Aga Berg 10/02/18 08:37> *Chief complaint: fever <Aga Berg 10/02/18 08:37> *History of present illness: Mr. Ji is a 72-year-old male with a history of acute myelogenous leukemia. He did have some rhinorrhea and sneezing after raking hay earlier in the week but then developed a fever late last night of 101.9. He was brought to the emergency room for evaluation. He has not run a fever above 99.1 since admission. He was admitted and started on antibiotics empirically and blood cultures were ordered. He states he did receive blood and platelets last Saturday but has had none this week. This a.m. he states he feels fine. He slept well and ate breakfast this morning. He has had no further fever. He denies any other associated symptoms. His rhinorrhea did improve after taking Claritin-D. <Aga Berg 10/02/18 08:37> [facility] History I have reviewed the patient's past medical history: Yes <Aga Berg 10/02/18 08:37> Medical History: Reports:: Arrhythmia, Atherosclerotic Heart Disease, Atrial Fibrillation, Cancer (Acute Myelogenous Leukemia), Coronary Artery Disease, Hyperlipidemia, Hypertension Denies:: Diabetes Mellitus Type 1, Diabetes Mellitus Type 2, Internal Pacemaker, MRSA, Seizures <Aga Berg 10/02/18 08:37> *Have you ever received a pneumonia vaccine?: Yes <Aga Berg 10/02/18 08:37> *Have you received a flu vaccine this season?: Yes <Aga Berg 10/02/18 08:37> Other Medical History: Reports: Chemotherapy, Hoarseness. Denies: Blood Transfusion Reaction <Aga Berg 10/02/18 08:37> Other Surgeries: Yes: Appendectomy, Cardiac Catheterization, Colonoscopy, Coronary Stent, Other (left chest port implanted). No: Pacemaker <Aga Berg 10/02/18 08:37> Amputation: No <Aga Berg 10/02/18 08:37> Fractures: No <Aga Berg 10/02/18 08:37> - *Social History Educational Level: Completed High School <Aga Berg 10/02/18 08:37> Smoking Status: Former smoker <DerekmargueriteAga 10/02/18 08:37> Tobacco Type: cigarettes <MorenaAga 10/02/18 08:37> # Packs/Day (cigarettes): 2 <MorenaAga 10/02/18 08:37> Alcohol Intake: never <DerekmargueriteAga 10/02/18 08:37> Alcohol Intake Frequency:: holidays/special occasions only <DerekmargueriteAga 10/02/18 08:37> Substance Use Type: denies use <DerekmargueriteAga 10/02/18 08:37> *Occupational Status:: retired <DerekmargueriteAga 10/02/18 08:37> Housing: house <DerekmargueriteAga 10/02/18 08:37> Household Members: spouse <DerekmargueriteAga 10/02/18 08:37> *Travel in the last 8 weeks: None <MorenaAga 10/02/18 08:37> - Psychiatric History Expresses thoughts of harming self/others: None <DerekmargueriteAga 10/02/18 08:37> Suicide Plan Description: No Plan <DerekmargueriteAga 10/02/18 08:37> Family Hx:: Cancer, Heart Attack, Hyperlipidemia, Hypertension, Stroke <MorenaAga 10/02/18 08:37> Review of Systems - Constitutional Reports fever(s), Denies body ache(s), Denies chills, Denies headache(s), Denies weakness <MorenaAga 10/02/18 08:37> - Eyes Denies blurry vision, Denies double vision <MorenaAga 10/02/18 08:37> - ENT Reports nasal congestion, Denies sore throat <MorenaAga 10/02/18 08:37> - *Cardiovascular Denies chest pain, Denies shortness of breath, Denies rapid, pounding, or irregular heartbeat <Aga Berg 10/02/18 08:37> - *Respiratory Reports cough, Denies shortness of breath <Aga Berg 10/02/18 08:37> - *Gastrointestinal Denies abdominal pain, Denies loose stools, Denies nausea, Denies vomiting <Aga Berg - 10/02/18 08:37> - *Genitourinary Denies difficulty urinating, Denies painful urination <Aga Berg - 10/02/18 08:37> - *Musculoskeletal Denies joint pain, Denies body aches <Aga Berg - 10/02/18 08:37> - *Neurologic Denies headache(s), Denies seizure-like activity, Denies dizziness, Denies weakness <Aga Berg - 10/02/18 08:37> Meds Home Medications Medication Instructions Recorded Confirmed Type Cholecalciferol (Vitamin D3) [D3 2,000 unit PO HS 03/28/17 10/02/18 History Dots] Aspirin [Aspirin 81mg EC Tab] 81 mg PO DAILY 06/10/17 10/02/18 History Fluconazole [Diflucan] 400 mg PO DAILY 06/10/17 10/02/18 History acyclovir 400 mg tablet 400 mg PO TID 08/13/17 10/02/18 History bisoprolol fumarate 10 mg tablet 5 mg PO DAILY tab 08/13/17 10/02/18 History yzcbjmum-rqi-trxki acid 300 1 tab PO HS tab 08/13/17 10/02/18 History mcg-lycopene 600 mcg-lutein 300 mcg tablet levofloxacin 500 mg tablet 500 mg PO DAILY 04/10/18 10/02/18 History ondansetron HCl 4 mg tablet 4 mg PO Q8HP PRN 08/05/18 10/02/18 History Venetoclax [Venclexta] 200 mg PO HS 09/08/18 10/02/18 History azaCITIDine [Azacitidine] 135 mg IV DIRECTED 09/10/18 10/02/18 History atorvastatin 40 mg tablet 40 mg PO DAILY #30 tab 09/26/18 10/02/18 Rx Potassium 20 meq PO DAILY 10/02/18 10/02/18 History <Eduardo Sosa - 10/02/18 13:03> Allergies Allergy/AdvReac Type Severity Reaction Status Date / Time No Known Allergies Allergy Verified 10/02/18 01:19 <Eduardo Sosa - 10/02/18 13:03> Exam Vital signs and Labs for Last 24 Hours: Temp Pulse Resp BP Pulse Ox 99.3 F 63 19 148/69 H 93 L 10/02/18 08:00 10/02/18 08:00 10/02/18 08:00 10/02/18 08:00 10/02/18 08:00 Laboratory Results - last 24 hr 10/01/18 22:40: WBC 0.4 L*, RBC 3.20 L, Hgb 8.6 L, Hct 26.3 L, MCV 82.2, MCH 26.8 L, MCHC 32.6, RDW 12.9, Plt Count 46 L*, MPV 8.9, Neut % (Auto) 25.1 L, Lymph % (Auto) 68.8 H, [place] % (Auto) 5.6, Eos % (Auto) 0.2, Baso % (Auto) 0.3, Neut # (Auto) 0.1 L*, Lymph # (Auto) 0.3 L, [place] # (Auto) 0.0 L, Eos # (Auto) 0.0, Baso # (Auto) 0.0, Total Counted 25, Neutrophils % (Manual) 12 L, Lymphocytes % (Manual) 52 H, Atypical Lymphs % 16.0, Metamyelocytes % 4.0 H, Myelocytes % 8 H, Blast Cells % 8.0, Platelet Estimate Marked decrease, Poikilocytosis 1+, Tear Drop Cells 1+ 10/01/18 22:40: Sodium 137, Potassium 3.8, Chloride 103, Carbon Dioxide 26, Anion Gap 11.8, BUN 17, Creatinine 0.91, Estimated Creat Clear 89, Estimated GFR 82, Est GFR ( Amer) 99, Glucose 179 H, Calcium 8.6, Total Bilirubin 0.7, AST 38 H, ALT 65, Alkaline Phosphatase 69, Total Protein 6.6, Albumin 2.6 L, Globulin 4.0 H, Albumin/Globulin Ratio 0.7 L 10/01/18 22:55: Lactate 1.3 10/01/18 23:39: Urine Color Yellow, Urine Appearance Clear, Urine pH 5.5, Ur Specific [place] 1.025, Urine Protein Trace, Urine Glucose (UA) Negative, Urine Ketones Negative, Urine Blood Negative, Urine Nitrate Negative, Urine Bilirubin Negative, Urine Urobilinogen 0.2, Ur Leukocyte Esterase Negative, Urine WBC 3-5, Ur Squamous Epith Cells 3-5, Urine Bacteria 1+ 10/02/18 05:45: WBC 0.5 L*, RBC 3.15 L, Hgb 8.5 L, Hct 26.0 L, MCV 82.6, MCH 27.0, MCHC 32.7, RDW 13.0, Plt Count 40 L*, MPV 8.8, Neut % (Auto) 13.1 L, Lymph % (Auto) 77.6 H, [place] % (Auto) 8.6, Eos % (Auto) 0.2, Baso % (Auto) 0.5, Neut # (Auto) 0.1 L*, Lymph # (Auto) 0.4 L, [place] # (Auto) 0.0 L, Eos # (Auto) 0.0, Baso # (Auto) 0.0 10/02/18 05:45: Sodium 140, Potassium 3.5, Chloride 105, Carbon Dioxide 27, Anion Gap 11.5, BUN 12 D, Creatinine 0.76, Estimated Creat Clear 85, Estimated GFR 101, Est GFR ( Amer) 122 D, Glucose 98 D, Calcium 8.6 <Eduardo Sosa - 10/02/18 13:03> Temp Pulse Resp BP Pulse Ox 98.4 F 69 17 155/76 H 95 10/02/18 04:00 10/02/18 04:00 10/02/18 04:00 10/02/18 04:00 10/02/18 08:00 Laboratory Results - last 24 hr 10/01/18 22:40: WBC 0.4 L*, RBC 3.20 L, Hgb 8.6 L, Hct 26.3 L, MCV 82.2, MCH 26.8 L, MCHC 32.6, RDW 12.9, Plt Count 46 L*, MPV 8.9, Neut % (Auto) 25.1 L, Lymph % (Auto) 68.8 H, [place] % (Auto) 5.6, Eos % (Auto) 0.2, Baso % (Auto) 0.3, Neut # (Auto) 0.1 L*, Lymph # (Auto) 0.3 L, [place] # (Auto) 0.0 L, Eos # (Auto) 0.0, Baso # (Auto) 0.0, Total Counted 25, Neutrophils % (Manual) 12 L, Lymphocytes % (Manual) 52 H, Atypical Lymphs % 16.0, Metamyelocytes % 4.0 H, Myelocytes % 8 H, Blast Cells % 8.0, Platelet Estimate Marked decrease, Poikilocytosis 1+, Tear Drop Cells 1+ 10/01/18 22:40: Sodium 137, Potassium 3.8, Chloride 103, Carbon Dioxide 26, Anion Gap 11.8, BUN 17, Creatinine 0.91, Estimated Creat Clear 89, Estimated GFR 82, Est GFR ( Amer) 99, Glucose 179 H, Calcium 8.6, Total Bilirubin 0.7, AST 38 H, ALT 65, Alkaline Phosphatase 69, Total Protein 6.6, Albumin 2.6 L, Globulin 4.0 H, Albumin/Globulin Ratio 0.7 L 10/01/18 22:55: Lactate 1.3 10/01/18 23:39: Urine Color Yellow, Urine Appearance Clear, Urine pH 5.5, Ur Specific [place] 1.025, Urine Protein Trace, Urine Glucose (UA) Negative, Urine Ketones Negative, Urine Blood Negative, Urine Nitrate Negative, Urine Bilirubin Negative, Urine Urobilinogen 0.2, Ur Leukocyte Esterase Negative, Urine WBC 3-5, Ur Squamous Epith Cells 3-5, Urine Bacteria 1+ 10/02/18 05:45: WBC 0.5 L*, RBC 3.15 L, Hgb 8.5 L, Hct 26.0 L, MCV 82.6, MCH 27.0, MCHC 32.7, RDW 13.0, Plt Count 40 L*, MPV 8.8, Neut % (Auto) 13.1 L, Lymph % (Auto) 77.6 H, [place] % (Auto) 8.6, Eos % (Auto) 0.2, Baso % (Auto) 0.5, Neut # (Auto) 0.1 L*, Lymph # (Auto) 0.4 L, [place] # (Auto) 0.0 L, Eos # (Auto) 0.0, Baso # (Auto) 0.0 10/02/18 05:45: Sodium 140, Potassium 3.5, Chloride 105, Carbon Dioxide 27, Anion Gap 11.5, BUN 12 D, Creatinine 0.76, Estimated Creat Clear 85, Estimated GFR 101, Est GFR ( Amer) 122 D, Glucose 98 D, Calcium 8.6 <Aga Berg 10/02/18 08:37> I & O for Last 24 hours: Intake & Output 09/29/18 09/30/18 10/01/18 10/02/18 23:59 23:59 23:59 23:59 Intake Total 615 / 615 Output Total 700 / 700 Balance -85 / -85 Weight 210 lb 202 lb 1 oz <Eduardo Sosa - 10/02/18 13:03> Intake & Output 09/29/18 09/30/18 10/01/18 10/02/18 11:59 11:59 11:59 11:59 Intake Total 375 / 375 Output Total 300 / 300 Balance 75 / 75 Weight 202 lb 1 oz <Aga Berg 10/02/18 08:37> - Constitutional no acute distress <Aga Berg 10/02/18 08:37> - *Routine HEENT Exam Head: Present: normocephalic <Aga Berg 10/02/18 08:37> Eye: Present: EOMI, PERRL <Aga Berg 10/02/18 08:37> ENT: Present: mucous membranes dry <Aga Berg 10/02/18 08:37> - *Routine Neck Exam Present: supple. Absent: lymphadenopathy <Aga Berg 10/02/18 08:37> - *Routine Respiratory Exam Present: CTA bilaterally <Aga Berg 10/02/18 08:37> - *Routine Cardiovascular Exam Present: RRR <Aga Berg 10/02/18 08:37> - *Routine Abdominal Exam Present: soft, normoactive bowel sounds. Absent: tenderness <Aga Berg 10/02/18 08:37> - *Routine Extremities Exam Absent: cyanosis, clubbing, edema <Aga Berg 10/02/18 08:37> - *Routine Skin Exam Present: warm. Absent: rash <Aga Berg 10/02/18 08:37> - *Routine Neurological Exam Present: alert, oriented X3 <Aga Berg 10/02/18 08:37> Assessment and Plan (1) Neutropenic fever Current visit: Yes Status: Acute Category: Medical Code(s): D70.9 - Neutropenia, unspecified; R50.81 - Fever presenting with conditions classified elsewhere (2) Acute myelogenous leukemia Current visit: No Status: Chronic Qualifiers: Leukemia Active/Remission status: without remission Qualified Code(s): C92.00 - Acute myeloblastic leukemia, not having achieved remission Category: Medical Code(s): C92.00 - Acute myeloblastic leukemia, not having achieved remission (3) Anemia Current visit: No Status: Chronic Category: Medical Code(s): D64.9 - Anemia, unspecified (4) Coronary artery disease Current visit: No Status: Chronic Qualifiers: Coronary Disease-Associated Artery/Lesion type: [place] artery [place] vs. transplanted heart: curyung heart Associated angina: without angina Qualified Code(s): I25.10 - Atherosclerotic heart disease of curyung coronary artery without angina pectoris Category: Medical Code(s): I25.10 - Atherosclerotic heart disease of [place] coronary artery without angina pectoris (5) Hypertension Current visit: No Status: Chronic Qualifiers: Hypertension type: essential hypertension Qualified Code(s): I10 - Essential (primary) hypertension Category: Medical Code(s): I10 - Essential (primary) hypertension (6) BIBIANA on CPAP Current visit: No Status: Chronic Category: Medical Code(s): G47.33 - Obstructive sleep apnea (adult) (pediatric); Z99.89 - Dependence on other enab ling machines and devices (7) Presence of stent in right coronary artery Current visit: No Status: Chronic Category: Medical Code(s): Z95.5 - Presence of coronary angioplasty implant and graft <Eduardo Sosa - 10/02/18 13:03> (1) Neutropenic fever Current visit: Yes Status: Acute Category: Medical Code(s): D70.9 - Neutropenia, unspecified; R50.81 - Fever presenting with conditions classified elsewhere (2) Acute myelogenous leukemia Current visit: No Status: Chronic Qualifiers: Leukemia Active/Remission status: without remission Qualified Code(s): C92.00 - Acute myeloblastic leukemia, not having achieved remission Category: Medical Code(s): C92.00 - Acute myeloblastic leukemia, not having achieved remission (3) Anemia Current visit: No Status: Chronic Category: Medical Code(s): D64.9 - Anemia, unspecified (4) Coronary artery disease Current visit: No Status: Chronic Qualifiers: Coronary Disease-Associated Artery/Lesion type: cur[place] artery [place] vs. transplanted heart: curyung heart Associated angina: without angina Qualified Code(s): I25.10 - Atherosclerotic heart disease of [place] coronary artery without angina pectoris Category: Medical Code(s): I25.10 - Atherosclerotic heart disease of cur[place] coronary artery without angina pectoris (5) Hypertension Current visit: No Status: Chronic Qualifiers: Hypertension type: essential hypertension Qualified Code(s): I10 - Essential (primary) hypertension Category: Medical Code(s): I10 - Essential (primary) hypertension (6) BIBIANA on CPAP Current visit: No Status: Chronic Category: Medical Code(s): G47.33 - Obstructive sleep apnea (adult) (pediatric); Z99.89 - Dependence on other enabling machines and devices (7) Presence of stent in right coronary artery Current visit: No Status: Chronic Category: Medical Code(s): Z95.5 - Presence of coronary angioplasty implant and graft <Aga Berg - 10/02/18 08:29> - Assessment and plan all Dx Assessment and Plan for all problems:: Saw patient, agree with above note. <Eduardo Sosa - 10/02/18 13:03> We will keep patient for 48 hours and monitor for fever. Will await blood culture results. Dr. Monge will be consulted to see the patient as well. <Aga Berg - 10/02/18 08:37>
--- NOTE | 2018-10-02 16:01 | Consult Report ---
*Admission Date: 10/02/18 *Reason for consult:: NF *History of present illness: pt presented to ed last reporting fever of 101.9. states started with chills then fever. blood cx ngtd. started on zosyn. mild cough. started sneezing earlier in the week. took claritin d. afebrile since admission. [facility] History Medical History: Reports:: Arrhythmia, Atherosclerotic Heart Disease, Atrial Fibrillation, Cancer (Acute Myelogenous Leukemia), Coronary Artery Disease, Hy perlipidemia, Hypertension Denies:: Diabetes Mellitus Type 1, Diabetes Mellitus Type 2, Internal Pa cemaker, MRSA, Seizures *Have you ever received a pneumonia vaccine?: Yes *Have you received a flu vaccine this season?: Yes Other Medical History: Reports: Chemotherapy, Hoarseness. Denies: Blood Transfusion Reaction Other Surgeries: Yes: Appendectomy, Cardiac Catheterization, Colonoscopy, Coronary Stent, Other (left chest port implanted). No: Pacemaker Amputation: No Fractures: No - *Social History Educational Level: Completed High School Smoking Status: Former smoker Tobacco Type: cigarettes # Packs/Day (cigarettes): 2 Alcohol Intake: never Alcohol Intake Frequency:: holidays/special occasions only Substance Use Type: denies use *Occupational Status:: retired Housing: house Household Members: spouse *Travel in the last 8 weeks: None - Psychiatric History Expresses thoughts of harming self/others: None Suicide Plan Description: No Plan Family Hx:: Cancer, Heart Attack, Hyperlipidemia, Hypertension, Stroke Review of Systems - *Neurologic Denies headache(s), Denies seizure-like activity, Denies dizziness, Denies weakness Meds Home Medications Medication Instructions Recorded Confirmed Type Cholecalciferol (Vitamin D3) [D3 2,000 unit PO HS 03/28/17 10/02/18 History Dots] Aspirin [Aspirin 81mg EC Tab] 81 mg PO DAILY 06/10/17 10/02/18 History Fluconazole [Diflucan] 400 mg PO DAILY 06/10/17 10/02/18 History acyclovir 400 mg tablet 400 mg PO TID 08/13/17 10/02/18 History bisoprolol fumarate 10 mg tablet 5 mg PO DAILY tab 08/13/17 10/02/18 History lpijhdor-djy-awemh acid 300 1 tab PO HS tab 08/13/17 10/02/18 History mcg-lycopene 600 mcg-lutein 300 mcg tablet levofloxacin 500 mg tablet 500 mg PO DAILY 04/10/18 10/02/18 History ondansetron HCl 4 mg tablet 4 mg PO Q8HP PRN 08/05/18 10/02/18 History Venetoclax [Venclexta] 200 mg PO HS 09/08/18 10/02/18 History azaCITIDine [Azacitidine] 135 mg IV DIRECTED 09/10/18 10/02/18 History atorvastatin 40 mg tablet 40 mg PO DAILY #30 tab 09/26/18 10/02/18 Rx Potassium 20 meq PO DAILY 10/02/18 10/02/18 History Allergies Allergy/AdvReac Type Severity Reaction Status Date / Time No Known Allergies Allergy Verified 10/02/18 01:19 Exam Vital signs and Labs for Last 24 Hours: Temp Pulse Resp BP Pulse Ox 99.3 F 63 19 148/69 H 93 L 10/02/18 08:00 10/02/18 08:00 10/02/18 08:00 10/02/18 08:00 10/02/18 08:00 Laboratory Results - last 24 hr 10/01/18 22:40: WBC 0.4 L*, RBC 3.20 L, Hgb 8.6 L, Hct 26.3 L, MCV 82.2, MCH 26.8 L, MCHC 32.6, RDW 12.9, Plt Count 46 L*, MPV 8.9, Neut % (Auto) 25.1 L, Lymph % (Auto) 68.8 H, [place] % (Auto) 5.6, Eos % (Auto) 0.2, Baso % (Auto) 0.3, Neut # (Auto) 0.1 L*, Lymph # (Auto) 0.3 L, [place] # (Auto) 0.0 L, Eos # (Auto) 0.0, Baso # (Auto) 0.0, Total Counted 25, Neutrophils % (Manual) 12 L, Lymphocytes % (Manual) 52 H, Atypical Lymphs % 16.0, Metamyelocytes % 4.0 H, Myelocytes % 8 H, Blast Cells % 8.0, Platelet Estimate Marked decrease, [place] cytosis 1+, Tear Drop Cells 1+ 10/01/18 22:40: Sodium 137, Potassium 3.8, Chloride 103, Carbon Dioxide 26, Anion Gap 11.8, BUN 17, Creatinine 0.91, Estimated Creat Clear 89, Estimated GFR 82, Est GFR ( Amer) 99, Glucose 179 H, Calcium 8.6, Total Bilirubin 0.7, AST 38 H, ALT 65, Alkaline Phosphatase 69, Total Protein 6.6, Albumin 2.6 L, Globulin 4.0 H, Albumin/Globulin Ratio 0.7 L 10/01/18 22:55: Lactate 1.3 10/01/18 23:39: Urine Color Yellow, Urine Appearance Clear, Urine pH 5.5, Ur Specific [place] 1.025, Urine Protein Trace, Urine Glucose (UA) Negative, Urine Ketones Negative, Urine Blood Negative, Urine Nitrate Negative, Urine Bilirubin Negative, Urine Urobilinogen 0.2, Ur Leukocyte Esterase Negative, Urine WBC 3-5, Ur Squamous Epith Cells 3-5, Urine Bacteria 1+ 10/02/18 05:45: WBC 0.5 L*, RBC 3.15 L, Hgb 8.5 L, Hct 26.0 L, MCV 82.6, MCH 27.0, MCHC 32.7, RDW 13.0, Plt Count 40 L*, MPV 8.8, Neut % (Auto) 13.1 L, Lymph % (Auto) 77.6 H, [place] % (Auto) 8.6, Eos % (Auto) 0.2, Baso % (Auto) 0.5, Neut # (Auto) 0.1 L*, Lymph # (Auto) 0.4 L, [place] # (Auto) 0.0 L, Eos # (Auto) 0.0, Baso # (Auto) 0.0 10/02/18 05:45: Sodium 140, Potassium 3.5, Chloride 105, Carbon Dioxide 27, Anion Gap 11.5, BUN 12 D, Creatinine 0.76, Estimated Creat Clear 85, Estimated GFR 101, Est GFR ( Amer) 122 D, Glucose 98 D, Calcium 8.6 I & O for Last 24 hours: Intake & Output 09/30/18 10/01/18 10/02/18 10/03/18 11:59 11:59 11:59 11:59 Intake Total 615 / 615 726 / 726 Output Total 700 / 700 Balance -85 / -85 726 / 726 Weight 202 lb 1 oz Internal Medicine - CN: Reslt - Labs CBC & Chem 7: 10/02/18 05:45 10/02/18 05:45 Labs: Short CBC 10/01/18 10/02/18 Range/Units 22:40 05:45 WBC 0.4 L* 0.5 L* (4.8-10.8) K/mm3 Hgb 8.6 L 8.5 L (14.1-18.0) g/dL Hct 26.3 L 26.0 L (42.0-52.0) % Plt Count 46 L* 40 L* (142-424) K/mm3 BMP 10/01/18 10/02/18 22:40 05:45 Sodium 137 140 Potassium 3.8 3.5 Chloride 103 105 Carbon Dioxide 26 27 BUN 17 12 D Creatinine 0.91 0.76 Glucose 179 H 98 D Calcium 8.6 8.6 Liver Function 10/01/18 Range/Units 22:40 Total Bilirubin 0.7 (0.2-1.0) mg/dL AST 38 H (15-37) U/L ALT 65 (12-78) U/L Alkaline Phosphatase 69 (46-116) U/L Albumin 2.6 L (3.4-5.0) gm/dL Urine 10/01/18 Range/Units 23:39 Urine Color Yellow (Yellow) Urine Appearance Clear (Clear) Urine pH 5.5 (5.0-8.5) Ur Specific [place] 1.025 (1.005-1.030) Urine Protein Trace (Negative) Urine Glucose (UA) Negative (Negative) Assessment and Plan (1) Neutropenic fever Current visit: Yes Status: Acute Category: Medical Code(s): D70.9 - Neutropenia, unspecified; R50.81 - Fever presenting with conditions classified elsewhere (2) Acute myelogenous leukemia Current visit: No Status: Chronic Qualifiers: Leukemia Active/Remission status: without remission Qualified Code(s): C92.00 - Acute myeloblastic leukemia, not having achieved remission Category: Medical Code(s): C92.00 - Acute myeloblastic leukemia, not having achieved remission (3) Anemia Current visit: No Status: Chronic Category: Medical Code(s): D64.9 - Anemia, unspecified (4) Coronary artery disease Current visit: No Status: Chronic Qualifiers: Coronary Disease-Associated Artery/Lesion type: [place] artery [place] vs. transplanted heart: [place] heart Associated angina: without angina Qualified Code(s): I25.10 - Atherosclerotic heart disease of [place] coronary artery without angina pectoris Category: Medical Code(s): I25.10 - Atherosclerotic heart disease of [place] coronary artery without angina pectoris (5) Hypertension Current visit: No Status: Chronic Qualifiers: Hypertension type: essential hypertension Qualified Code(s): I10 - Essential (primary) hypertension Category: Medical Code(s): I10 - Essential (primary) hypertension (6) [place] on CPAP Current visit: No Status: Chronic Category: Medical Code(s): G47.33 - Obstructive sleep apnea (adult) (pediatric); Z99.89 - Dependence on other enabling machines and devices (7) Presence of stent in right coronary artery Current visit: No Status: Chronic Category: Medical Code(s): Z95.5 - Presence of coronary angioplasty implant and graft - Assessment and plan all Dx Assessment and Plan for all problems:: NF- on broad spectrum abx. cultures pending. do not recommend tylenol unless temp >100.4 so as not to mask fever. recommend observation for 48 hours and if cultures negative and afebrile ok for discharge. pt to start chemo on saturday and has f/up with his primary oncologist at on saturday. d/w pt and at bedside.
--- NOTE | 2018-10-03 08:15 | Progress Note ---
<Aga Berg - Last Filed: 10/03/18 08:13> Internal Medicine - PN: Subj *Date: 10/03/18 *Time: 08:13 Interval history: Patient states he is feeling well this morning. He denies any pain. He states he slept well and ate a good breakfast. His sinus congestion has improved. Exam Vital signs and Labs for Last 24 Hours: Temp Pulse Resp BP Pulse Ox 99.3 F 70 17 150/68 H 94 L 10/03/18 04:00 10/03/18 04:00 10/03/18 04:00 10/03/18 04:00 10/03/18 04:00 Laboratory Results - last 24 hr 10/02/18 05:45: Plt Count 40 L* I & O for Last 24 hours: Intake & Output 09/30/18 10/01/18 10/02/18 10/03/18 11:59 11:59 11:59 11:59 Intake Total 615 / 615 2044 Output Total 700 / 700 Balance -85 / -85 2044 Weight 202 lb 1 oz 201 lb 9 oz Microbiology Reports for the Last 24 Hours: Microbiology 10/01/18 22:40 Blood Blood Culture - Preliminary - Constitutional no acute distress - *Routine Respiratory Exam Present: CTA bilaterally - *Routine Cardiovascular Exam Present: RRR - *Routine Abdominal Exam Present: soft, normoactive bowel sounds. Absent: tenderness - *Routine Extremities Exam Absent: cyanosis, clubbing, edema - *Routine Skin Exam Present: warm. 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 transplanted heart: [place] heart Associated angina: without angina Qualified Code(s): I25.10 - Atherosclerotic heart disease of [place] coronary artery without angina pectoris Category: Medical Code(s): I25.10 - Atherosclerotic heart disease of [place] coronary artery without angina pectoris (5) Hypertension Current visit: No Status: Chronic Qualifiers: Hypertension type: essential hypertension Qualified Code(s): I10 - Essential (primary) hypertension Category: Medical Code(s): I10 - Essential (primary) hypertension (6) [place] on CPAP Current visit: No Status: Chronic Category: Medical Code(s): G47.33 - Obstructive sleep apnea (adult) (pediatric); Z99.89 - Dependence on other en[place] machines and devices (7) Presence of stent in right coronary artery Current visit: No Status: Chronic Category: Medical Code(s): Z95.5 - Presence of coronary angioplasty implant and graft - Assessment and plan all Dx Assessment and Plan for all problems:: Preliminary blood cultures growing staph [place]. No fevers throughout the night. We will continue antibiotics and await final culture results. Dr. Monge's note reviewed. <Eduardo Sosa - Last Filed: 10/03/18 09:12> Internal Medicine - PN: Subj *Date: 10/03/18 *Time: 09:12 Exam Vital signs and Labs for Last 24 Hours: Temp Pulse Resp BP Pulse Ox 98.9 F 72 20 147/65 H 93 L 10/03/18 08:00 10/03/18 08:00 10/03/18 08:00 10/03/18 08:00 10/03/18 08:00 Laboratory Results - last 24 hr 10/02/18 05:45: Plt Count 40 L* I & O for Last 24 hours: Intake & Output 09/30/18 10/01/18 10/02/18 10/03/18 23:59 23:59 23:59 23:59 Intake Total 1461 / 1461 1679 / 1679 Output Total 700 / 700 Balance 761 / 761 1679 / 1679 Weight 210 lb 202 lb 1 oz 201 lb 9 oz Microbiology Reports for the Last 24 Hours: Microbiology 10/01/18 22:40 Blood Blood Culture - Preliminary Assessment and Plan (1) Neutropenic fever Current visit: Yes Status: Acute Category: Medical Code(s): D70.9 - Neutropenia, unspecified; R50.81 - Fever presenting with conditions classified elsewhere (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 transplanted heart: [place] heart Associated angina: without angina Qualified Code(s): I25.10 - Atherosclerotic heart disease of [place] coronary artery without angina pectoris Category: Medical Code(s): I25.10 - Atherosclerotic heart disease of [place] coronary artery without angina pectoris (5) Hypertension Current visit: No Status: Chronic Qualifiers: Hypertension type: essential hypertension Qualified Code(s): I10 - Essential (primary) hypertension Category: Medical Code(s): I10 - Essential (primary) hypertension (6) [place] on CPAP Current visit: No Status: Chronic Category: Medical Code(s): G47.33 - Obstructive sleep apnea (adult) (pediatric); Z99.89 - Dependence on other enabling machines and devices (7) Presence of stent in right coronary artery Current visit: No Status: Chronic Category: Medical Code(s): Z95.5 - Presence of coronary angioplasty implant and graft - Assessment and plan all Dx Assessment and Plan for all problems:: Saw patient, agree with above note. Await final blood culture results.
[2018-10-04 07:18] LABS: Basophils % 0.4 % (0.1-2.0); Eosinophils % 0.1 % (0.1-12.0); Hemoglobin 8.2 g/dL (14.1-18.0); Lymphocytes # 0.6 K/mm3 (0.7-4.5); Lymphocytes % 72.5 % (10-50); Mean Corpuscular HGB Conc 32.7 g/dL (31.8-35.4); Mean Corpuscular Volume 81.8 fl (80-94); Mean Platelet Volume 8.6 fl (7.4-10.4); Monocytes # 0.1 K/mm3 (0.1-1.0); Monocytes % 13.1 % (1.7-9.3); Neutrophils # 0.1 K/mm3 (1.8-7.8); Platelet Count 71 K/mm3 (142-424); Red Blood Count 3.06 M/mm3 (4.60-6.20); Red Cell Distribution Width 13.1 % (11.5-17.5)
[2018-10-04 07:24] LABS: Neutrophils % 13.8 % (37.0-80.0); White Blood Count 0.9 K/mm3 (4.8-10.8)
[2018-10-04 07:26] LABS: Anion Gap 11.4 mEq/L (5-15); Calcium 8.1 mg/dL (8.5-10.1)
[2018-10-04 08:20] LABS: Lymphocytes % 52 % (10-50); Monocytes % 12 % (2-9); Neutrophils % 12 % (42-76); RBC Morphology Normal; Total Cells Counted 25
--- NOTE | 2018-10-04 08:27 | Progress Note ---
<Aga Berg - Last Filed: 10/04/18 08:25> Internal Medicine - PN: Subj *Date: 10/04/18 *Time: 08:25 Interval history: Patient has no new complaints today. He states his temperature has been running in the 99's. He did have one temperature at 4 AM of 100.1. He denies any pain, slept well, and ate a good breakfast. Exam Vital signs and Labs for Last 24 Hours: Temp Pulse Resp BP Pulse Ox 99.5 F 72 19 144/65 H 95 10/04/18 06:35 10/04/18 04:00 10/04/18 04:00 10/04/18 04:00 10/04/18 04:00 Laboratory Results - last 24 hr 10/04/18 07:04: WBC 0.9 L* D, RBC 3.06 L, Hgb 8.2 L, Hct 25.0 L, MCV 81.8, MCH 26.7 L, MCHC 32.7, RDW 13.1, Plt Count 71 L D, MPV 8.6, Neut % (Auto) 13.8 L, Lymph % (Auto) 72.5 H, [place] % (Auto) 13.1 H, Eos % (Auto) 0.1, Baso % (Auto) 0.4, Neut # (Auto) 0.1 L*, Lymph # (Auto) 0.6 L, [place] # (Auto) 0.1, Eos # (Auto) 0.0, Baso # (Auto) 0.0, Total Counted 25, Neutrophils % (Manual) 12 L, Lymphocytes % (Manual) 52 H, Atypical Lymphs % 20.0, Monocytes % (Manual) 12 H, Blast Cells % 4.0, Platelet Estimate Moderate decrease, RBC Morphology Normal 10/04/18 07:04: Sodium 140, Potassium 3.4 L, Chloride 107, Carbon Dioxide 25, Anion Gap 11.4, BUN 7 D, Creatinine 0.86, Estimated Creat Clear 85, Estimated GFR 87, Est GFR ( Amer) 105, Glucose 91, Calcium 8.1 L I & O for Last 24 hours: Intake & Output 10/01/18 10/02/18 10/03/18 10/04/18 11:59 11:59 11:59 11:59 Intake Total 615 / 615 2525 / 2525 3304 / 3304 Output Total 700 / 700 Balance -85 / -85 5 / 5 3304 / 3304 Weight 202 lb 1 oz 201 lb 9 oz 201 lb 6 oz Microbiology Reports for the Last 24 Hours: Microbiology 10/01/18 22:40 Blood Blood Culture - Preliminary Gram Positive Cocci 10/01/18 22:40 Blood Blood Culture - Preliminary NO GROWTH AFTER 48 HOURS - Constitutional no acute distress - *Routine Respiratory Exam Present: CTA bilaterally - *Routine Cardiovascular Exam Present: RRR - *Routine Abdominal Exam Present: soft, normoactive bowel sounds. Absent: tenderness - *Routine Extremities Exam Absent: cyanosis, clubbing, edema - *Routine Skin Exam Present: warm. 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 transplanted heart: [place] heart Associated angina: without angina Qualified Code(s): I25.10 - Atherosclerotic heart disease of [place] coronary artery without angina pectoris Category: Medical Code(s): I25.10 - Atherosclerotic heart disease of [place] coronary artery without angina pectoris (5) Hypertension Current visit: No Status: Chronic Qualifiers: Hypertension type: essential hypertension Qualified Code(s): I10 - Essential (primary) hypertension Category: Medical Code(s): I10 - Essential (primary) hypertension (6) [place] on CPAP Current visit: No Status: Chronic Category: Medical Code(s): G47.33 - Obstructive sleep apnea (adult) (pediatric); Z99.89 - Dependence on other enabling machines and devices (7) Presence of stent in right coronary artery Current visit: No Status: Chronic Category: Medical Code(s): Z95.5 - Presence of coronary angioplasty implant and graft - Assessment and plan all Dx Assessment and Plan for all problems:: We will continue antibiotics and await final blood culture results. Will start on potassium supplementation. <Eduardo Sosa - Last Filed: 10/04/18 08:36> Internal Medicine - PN: Subj *Date: 10/04/18 *Time: 08:35 Exam Vital signs and Labs for Last 24 Hours: Temp Pulse Resp BP Pulse Ox 99.5 F 72 19 144/65 H 95 10/04/18 06:35 10/04/18 04:00 10/04/18 04:00 10/04/18 04:00 10/04/18 04:00 Laboratory Results - last 24 hr 10/04/18 07:04: WBC 0.9 L* D, RBC 3.06 L, Hgb 8.2 L, Hct 25.0 L, MCV 81.8, MCH 26.7 L, MCHC 32.7, RDW 13.1, Plt Count 71 L D, MPV 8.6, Neut % (Auto) 13.8 L, Lymph % (Auto) 72.5 H, [place] % (Auto) 13.1 H, Eos % (Auto) 0.1, Baso % (Auto) 0.4, Neut # (Auto) 0.1 L*, Lymph # (Auto) 0.6 L, [place] # (Auto) 0.1, Eos # (Auto) 0.0, Baso # (Auto) 0.0, Total Counted 25, Neutrophils % (Manual) 12 L, Lymphocytes % (Manual) 52 H, Atypical Lymphs % 20.0, Monocytes % (Manual) 12 H, Blast Cells % 4.0, Platelet Estimate Moderate decrease, RBC Morphology Normal 10/04/18 07:04: Sodium 140, Potassium 3.4 L, Chloride 107, Carbon Dioxide 25, Anion Gap 11.4, BUN 7 D, Creatinine 0.86, Estimated Creat Clear 85, Estimated GFR 87, Est GFR ( Amer) 105, Glucose 91, Calcium 8.1 L I & O for Last 24 hours: Intake & Output 10/01/18 10/02/18 10/03/18 10/04/18 23:59 23:59 23:59 23:59 Intake Total 1461 / 1461 3335 / 3335 1648 / 1648 Output Total 700 / 700 Balance 761 / 761 3335 / 3335 1648 / 1648 Weight 210 lb 202 lb 1 oz 201 lb 8.992 oz 201 lb 6 oz Microbiology Reports for the Last 24 Hours: Microbiology 10/01/18 22:40 Blood Blood Culture - Preliminary Gram Positive Cocci 10/01/18 22:40 Blood Blood Culture - Preliminary NO GROWTH AFTER 48 HOURS Assessment and Plan (1) Neutropenic fever Current visit: Yes Status: Acute Category: Medical Code(s): D70.9 - Neutropenia, unspecified; R50.81 - Fever presenting with conditions classified elsewhere (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 transplanted heart: [place] heart Associated angina: without angina Qualified Code(s): I25.10 - Atherosclerotic heart disease of [place] coronary artery without angina pectoris Category: Medical Code(s): I25.10 - Atherosclerotic heart disease of [place] coronary artery without angina pectoris (5) Hypertension Current visit: No Status: Chronic Qualifiers: Hypertension type: essential hypertension Qualified Code(s): I10 - Essential (primary) hypertension Category: Medical Code(s): I10 - Essential (primary) hypertension (6) [place] on CPAP Current visit: No Status: Chronic Category: Medical Code(s): G47.33 - Obstructive sleep apnea (adult) (pediatric); Z99.89 - Dependence on other enabling machines and devices (7) Presence of stent in right coronary artery Current visit: No Status: Chronic Category: Medical Code(s): Z95.5 - Presence of coronary angioplasty implant and graft - Assessment and plan all Dx Assessment and Plan for all problems:: Saw patient, agree with above note.
--- NOTE | 2018-10-05 08:54 | Progress Note ---
Internal Medicine - PN: Subj *Date: 10/05/18 *Time: 08:53 Interval history: Patient feels well today, anxious to go home. No fever over night. Exam Vital signs and Labs for Last 24 Hours: Temp Pulse Resp BP Pulse Ox 98.7 F 72 17 136/72 94 L 10/05/18 08:00 10/05/18 08:00 10/05/18 08:00 10/05/18 08:00 10/05/18 08:00 I & O for Last 24 hours: Intake & Output 10/02/18 10/03/18 10/04/18 10/05/18 23:59 23:59 23:59 23:59 Intake Total 1461 / 1461 3335 / 3335 2708 / 2708 420 / 420 Output Total 700 / 700 Balance 761 / 761 3335 / 3335 2708 / 2708 420 / 420 Weight 202 lb 1 oz 201 lb 8.992 oz 201 lb 6 oz 201 lb 6 oz Microbiology Reports for the Last 24 Hours: Microbiology 10/01/18 22:40 Blood Blood Culture - Preliminary Staphylococcus epidermidis - Constitutional no acute distress - *Routine HEENT Exam Head: Present: normocephalic Eye: Present: EOMI ENT: Present: mucous membranes moist - *Routine Neck Exam Present: supple. Absent: lymphadenopathy - *Routine Respiratory Exam Present: CTA bilaterally - *Routine Cardiovascular Exam Present: RRR - *Routine Abdominal Exam Present: soft, normoactive bowel sounds. Absent: tenderness - *Routine Extremities Exam Absent: cyanosis, clubbing, edema - *Routine Skin Exam Present: warm. 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 transplanted heart: [place] heart Associated angina: without angina Qualified Code(s): I25.10 - Atherosclerotic heart disease of [place] coronary artery without angina pectoris Category: Medical Code(s): I25.10 - Atherosclerotic heart disease of [place] coronary artery without angina pectoris (5) Hypertension Current visit: No Status: Chronic Qualifiers: Hypertension type: essential hypertension Qualified Code(s): I10 - Essential (primary) hypertension Category: Medical Code(s): I10 - Essential (primary) hypertension (6) BIBIANA on CPAP Current visit: No Status: Chronic Category: Medical Code(s): G47.33 - Obstructive sleep apnea (adult) (pediatric); Z99.89 - Dependence on other enabling machines and devices (7) Presence of stent in right coronary artery Current visit: No Status: Chronic Category: Medical Code(s): Z95.5 - Presence of coronary angioplasty implant and graft - Assessment and plan all Dx Assessment and Plan for all problems:: Blood culture shows staph epi in 1 bottle, all others negative. This is most likely a skin contaminant. OK to discharge home today. Pt to be seen at [facility] in the morning for labs and chemotherapy treatment.
--- NOTE | 2018-10-05 09:28 | Progress Note ---
Internal Medicine - PN: Subj *Date: 10/05/18 *Time: 09:28 Exam Vital signs and Labs for Last 24 Hours: Temp Pulse Resp BP Pulse Ox 98.7 F 72 17 136/72 94 L 10/05/18 08:00 10/05/18 08:00 10/05/18 08:00 10/05/18 08:00 10/05/18 08:00 I & O for Last 24 hours: Intake & Output 10/02/18 10/03/18 10/04/18 10/05/18 23:59 23:59 23:59 23:59 Intake Total 1461 / 1461 3335 / 3335 2708 / 2708 420 / 420 Output Total 700 / 700 Balance 761 / 761 3335 / 3335 2708 / 2708 420 / 420 Weight 91.654 kg 91.427 kg 91.342 kg 91.342 kg Microbiology Reports for the Last 24 Hours: Microbiology 10/01/18 22:40 Blood Blood Culture - Preliminary Staphylococcus epidermidis Assessment and Plan (1) Neutropenic fever Current visit: Yes Status: Acute Category: Medical Code(s): D70.9 - Neut ropenia, unspecified; R50.81 - Fever presenting with conditions classified elsewhere (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 transplanted heart: [place] heart Associated angina: without angina Qualified Code(s): I25.10 - Atherosclerotic heart disease of [place] coronary artery without angina pectoris Category: Medical Code(s): I25.10 - Atherosclerotic heart disease of [place] coronary artery without angina pectoris (5) Hypertension Current visit: No Status: Chronic Qualifiers: Hypertension type: essential hypertension Qualified Code(s): I10 - Essential (primary) hypertension Category: Medical Code(s): I10 - Essential (primary) hypertension (6) BIBIANA on CPAP Current visit: No Status: Chronic Category: Medical Code(s): G47.33 - Obstructive sleep apnea (adult) (pediatric); Z99.89 - Dependence on other enabling machines and devices (7) Presence of stent in right coronary artery Current visit: No Status: Chronic Category: Medical Code(s): Z95.5 - Presence of coronary angioplasty implant and graft The patient's infection will respond to the chosen ABx?: Yes Is the patient receiving the right drug, dose, and route?: Yes Could a more targeted ABx be ordered?: No (PATIENT D/C TODAY)
--- NOTE | 2018-10-06 23:11 | Discharge Summary ---
General - General Admission date:: 10/02/18 Discharge date: 10/05/18 HPI HPI: Mr. Ji is a 72-year-old male with a history of acute myelogenous leukemia. He did have some rhinorrhea and sneezing after raking hay earlier in the week but then developed a fever late last night of 101.9. He was brought to the emergency room for evaluation. He has not run a fever above 99.1 since admission. He was admitted and started on antibiotics empirically and blood cultures were ordered. He states he did receive blood and platelets last Saturday but has had none this week. This a.m. he states he feels fine. He slept well and ate breakfast this morning . He has had no further fever. He denies any other associated symptoms. His rhinorrhea did improve after taking Claritin-D. Hospital Course Hospital Course: The patient was started on broad-spectrum antibiotics and kept for monitoring of his fever. Blood cultures were ordered and Dr. Monge was consulted. Dr. Monge saw the patient and recommended observation for 48 hours and felt if his cultures were negative, he could be discharged. The patient had no new complaints and did run a low-grade fever. His preliminary cultures were growing staph, therefore he was continued on antibiotics. He was started on potassium supplementation due to hypokalemia. By 10/05/2018 the patient had no fever overnight and his blood cultures in 1 bottle were positive for Staphylococcus epidermidis. All other bottles were negative. It was felt this was most likely a skin contaminant and he was stable to be discharged home. He will follow-up at [facility] on 10/06/2018 for labs and chemotherapy treatment. Objective Vital signs: Temp Pulse Resp BP Pulse Ox 98.7 F 72 17 136/72 94 L 10/05/18 08:00 10/05/18 08:00 10/05/18 08:00 10/05/18 08:00 10/05/18 08:00 Narrative: - Constitutional no acute distress - *Routine HEENT Exam Head: Present: normocephalic Eye: Present: EOMI, PERRL ENT: Present: mucous membranes dry - *Routine Neck Exam Present: supple. Absent: lymphadenopathy - *Routine Respiratory Exam Present: CTA bilaterally - *Routine Cardiovascular Exam Present: RRR - *Routine Abdominal Exam Present: soft, normoactive bowel sounds. Absent: tenderness - *Routine Extremities Exam Absent: cyanosis, clubbing, edema - *Routine Skin Exam Present: warm. Absent: rash - *Routine Neurological Exam Present: alert, oriented X3 Results Labs on day of discharge: Preliminary micro results at discharge 10/01/18 22:40 Blood Culture - Preliminary Blood Staphylococcus epidermidis DS: Diagnosis - Discharge Diagnosis (1) Neutropenic fever Status: Acute (2) Acute myelogenous leukemia Status: Chronic (3) Anemia Status: Chronic (4) Coronary artery disease Status: Chronic (5) Hypertension Status: Chronic (6) BIBIANA on CPAP Status: Chronic (7) Presence of stent in right coronary artery Status: Chronic Discharge Plan - Patient Discharge Instructions ACTIVITY: Continue current activity DIET: continue same diet Patient Instructions: DI for Neutropenic Fever - Follow up Plan Follow up with: Eduardo Sosa MD [Primary Care Provider] - (as already scheduled) Disposition: Home, Self-Retirement Medications: Home Medications Medication Instructions Recorded Confirmed Type Cholecalciferol (Vitamin D3) [D3 2,000 unit PO HS 03/28/17 10/06/18 History Dots] Aspirin [Aspirin 81mg EC Tab] 81 mg PO DAILY 06/10/17 10/06/18 History Fluconazole [Diflucan] 400 mg PO DAILY 06/10/17 10/06/18 History acyclovir 400 mg tablet 400 mg PO TID 08/13/17 10/06/18 History bisoprolol fumarate 10 mg tablet 5 mg PO DAILY tab 08/13/17 10/06/18 History zyyyajfa-caf-vkzzh acid 300 1 tab PO HS tab 08/13/17 10/06/18 History mcg-lycopene 600 mcg-lutein 300 mcg tablet levofloxacin 500 mg tablet 500 mg PO DAILY 04/10/18 10/06/18 History ondansetron HCl 4 mg tablet 4 mg PO Q8HP PRN 08/05/18 10/06/18 History Venetoclax [Venclexta] 200 mg PO HS 09/08/18 10/06/18 History azaCITIDine [Azacitidine] 135 mg IV DIRECTED 09/10/18 10/06/18 History atorvastatin 40 mg tablet 40 mg PO DAILY #30 tab 09/26/18 10/06/18 Rx Potassium 20 meq PO DAILY 10/02/18 10/06/18 History Prescriptions/Medication Reconciliation: Continued acyclovir 400 mg tablet 400 mg PO TID tqjkbguo-eie-imssu acid 300 mcg-lycopene 600 mcg-lutein 300 mcg tablet 1 tab PO HS tab levofloxacin 500 mg tablet 500 mg PO DAILY atorvastatin 40 mg tablet 40 mg PO DAILY #30 tab bisoprolol fumarate 10 mg tablet 5 mg PO DAILY tab ondansetron HCl 4 mg tablet 4 mg PO Q8HP PRN PRN Reason: Nausea Cholecalciferol (Vitamin D3) [D3 Dots] 2,000 unit PO HS Aspirin [Aspirin 81mg EC Tab] 81 mg PO DAILY Fluconazole [Diflucan] 400 mg PO DAILY Potassium 20 meq PO DAILY Venetoclax [Venclexta] 200 mg PO HS azaCITIDine [Azacitidine] 135 mg IV DIRECTED
== END 2018-10-05 10:30 | disposition home or self-care (01) ==
LOC: 2ND 22:23 → ER 22:23 → 2ND 10-02 01:02
PROVIDERS: ADMIT Family Medicine; ATTEND Family Medicine
CPT/HCPCS: 80048; 80053; 81001; 83605; 85007; 85025; 87040; 87077; 87186; 96365; 99284; G0378; J2543

== ENCOUNTER 2018-10-06 08:32 | Outpatient (CLI) | payer MEDICARE, OTHER, SELFPAY ==
[2018-10-06 08:44] VITALS: BMI 30.1
[2018-10-06 09:10] LABS: Hematocrit 26.5 % (42.0-52.0); Lymphocytes # 0.9 K/mm3 (0.7-4.5)
[2018-10-06 09:17] LABS: Basophils % 0.4 % (0.1-2.0); Eosinophils % 0.1 % (0.1-12.0); Hemoglobin 8.5 g/dL (14.1-18.0); Lymphocytes % 58.6 % (10-50); Mean Corpuscular HGB Conc 32.1 g/dL (31.8-35.4); Mean Corpuscular Hemoglobin 26.8 pg (27.0-31.2); Mean Corpuscular Volume 83.5 fl (80-94); Monocytes # 0.3 K/mm3 (0.1-1.0); Monocytes % 17.2 % (1.7-9.3); Neutrophils # 0.4 K/mm3 (1.8-7.8); Neutrophils % 23.7 % (37.0-80.0); Platelet Count 146 K/mm3 (142-424); Red Blood Count 3.17 M/mm3 (4.60-6.20); Red Cell Distribution Width 13.9 % (11.5-17.5); White Blood Count 1.5 K/mm3 (4.8-10.8)
[2018-10-06 09:19] LABS: MANUAL DIFFERENTIAL MANUAL DIFFERENTIAL (MANUAL DIFF)
[2018-10-06 09:21] LABS: Alanine Aminotransferase 78 U/L (12-78); Albumin Level 2.3 gm/dL (3.4-5.0); Albumin/Globulin Ratio 0.6 (1.1-1.8); Alkaline Phosphatase 76 U/L (46-116); Anion Gap 12.3 mEq/L (5-15); Aspartate Amino Transferase 42 U/L (15-37); Bilirubin,Total 0.6 mg/dL (0.2-1.0); Blood Urea Nitrogen 9 mg/dL (7-18); Calcium 8.6 mg/dL (8.5-10.1); Carbon Dioxide 26 mmol/L (21.0-32.0); Chloride 107 mmol/L (98-107); Creatinine Clearance Estimated 89 mL/min (50-200); Creatinine,Serum 0.92 mg/dL (0.70-1.30); Estimated Glomerular Filt Rate 81 ml/min (>60); GFR (African American) 98 ML/MIN (>60); Globulin 4.1 gm/dl (1.3-3.2); Glucose 153 mg/dL (74-106); Potassium 3.3 mmoL/L (3.5-5.1); Sodium 142 mmol/L (136-145); Total Protein,Serum 6.4 gm/dL (6.4-8.2)
[2018-10-06 09:35] LABS: Lymphocytes % 35 % (10-50); Monocytes % 42 % (2-9); Neutrophils % 23 % (42-76); Nucleated Red Blood Cells 1; Total Cells Counted 100
[2018-10-06 09:36] LABS: Hypochromasia 1+; Platelet Estimate Slight Decrease
[2018-10-06 09:37] LABS: Schistocytes 1+
[2018-10-06 13:45] VITALS: BP 125/72; PULSE 72; RESP 20; TEMP 37; O2SAT 98
[2018-10-06 14:20] VITALS: BP 130/74; PULSE 73; RESP 18; O2SAT 98
== END 2018-10-06 14:20 | disposition home or self-care (01) ==
LOC: INF 08:32
PROVIDERS: Visit Provider Internal Medicine Medical Oncology
DX: Z51.11 Encounter for antineoplastic chemotherapy (principal); C92.00 Acute myeloblastic leukemia, not having achieved remission
CPT/HCPCS: 80053; 85007; 85025; 96413; J9025

== ENCOUNTER 2018-10-07 12:57 | Outpatient (CLI) | payer MEDICARE, OTHER, SELFPAY ==
[2018-10-07 13:32] VITALS: BP 121/69; PULSE 67; RESP 18; TEMP 36.8; O2SAT 98
[2018-10-07 14:02] VITALS: BP 119/65; PULSE 69; RESP 18; O2SAT 97
[2018-10-07 14:25] VITALS: BP 129/69; PULSE 65; RESP 18; O2SAT 97
== END 2018-10-07 14:30 | disposition home or self-care (01) ==
LOC: INF 12:57
PROVIDERS: Visit Provider Internal Medicine Hematology & Oncology
DX: Z51.11 Encounter for antineoplastic chemotherapy (principal); C92.00 Acute myeloblastic leukemia, not having achieved remission
CPT/HCPCS: 96413; J9025

== ENCOUNTER 2018-10-08 08:15 | Outpatient (CLI) | payer MEDICARE, OTHER, SELFPAY ==
[2018-10-08 08:22] VITALS: BMI 29.9
[2018-10-08 08:42] LABS: Basophils % 0.6 % (0.1-2.0); Eosinophils % 0.1 % (0.1-12.0); Hematocrit 25.3 % (42.0-52.0); Hemoglobin 8.2 g/dL (14.1-18.0); Mean Corpuscular HGB Conc 32.5 g/dL (31.8-35.4); Mean Corpuscular Hemoglobin 27.3 pg (27.0-31.2); Mean Corpuscular Volume 84.1 fl (80-94); Mean Platelet Volume 8.3 fl (7.4-10.4); Monocytes # 0.3 K/mm3 (0.1-1.0); Monocytes % 15.9 % (1.7-9.3); Neutrophils # 0.8 K/mm3 (1.8-7.8); Neutrophils % 35.6 % (37.0-80.0); Platelet Count 197 K/mm3 (142-424); Red Cell Distribution Width 15.5 % (11.5-17.5); White Blood Count 2.2 K/mm3 (4.8-10.8)
[2018-10-08 09:50] VITALS: BP 141/66; PULSE 65; RESP 18; TEMP 36.7; O2SAT 98
[2018-10-08 10:05] VITALS: BP 142/70; PULSE 62; RESP 18
[2018-10-08 10:20] VITALS: BP 132/67; PULSE 62; RESP 18
[2018-10-08 10:25] VITALS: BP 142/69; PULSE 61; RESP 18
== END 2018-10-08 10:55 | disposition home or self-care (01) ==
LOC: INF 08:20
PROVIDERS: Visit Provider Internal Medicine Hematology & Oncology
DX: Z51.11 Encounter for antineoplastic chemotherapy (principal); C92.00 Acute myeloblastic leukemia, not having achieved remission
CPT/HCPCS: 85025; 96413; J9025

== ENCOUNTER 2018-10-09 08:00 | Outpatient (CLI) | payer MEDICARE, OTHER, SELFPAY ==
[2018-10-09 08:55] VITALS: BP 126/69; PULSE 83; RESP 18; TEMP 37.2
[2018-10-09 09:10] VITALS: BP 117/64; PULSE 74; RESP 18
[2018-10-09 09:25] VITALS: BP 106/60; PULSE 74; RESP 18
[2018-10-09 09:40] VITALS: BP 124/62; PULSE 82; RESP 18; TEMP 37.1
== END 2018-10-09 09:55 | disposition home or self-care (01) ==
LOC: INF 08:18
PROVIDERS: Visit Provider Internal Medicine Hematology & Oncology
DX: Z51.11 Encounter for antineoplastic chemotherapy (principal); C92.00 Acute myeloblastic leukemia, not having achieved remission
CPT/HCPCS: 96413; J9025

== ENCOUNTER 2018-10-10 08:10 | Outpatient (CLI) | payer MEDICARE, OTHER, SELFPAY ==
[2018-10-10 08:15] VITALS: BMI 29.9
[2018-10-10 08:33] LABS: Basophils % 0.4 % (0.1-2.0); Hematocrit 27.6 % (42.0-52.0); Hemoglobin 8.7 g/dL (14.1-18.0); Lymphocytes # 1.5 K/mm3 (0.7-4.5); Lymphocytes % 46.7 % (10-50); Mean Corpuscular HGB Conc 31.7 g/dL (31.8-35.4); Mean Corpuscular Volume 85.2 fl (80-94); Mean Platelet Volume 8.7 fl (7.4-10.4); Monocytes # 0.4 K/mm3 (0.1-1.0); Monocytes % 12.4 % (1.7-9.3); Neutrophils # 1.3 K/mm3 (1.8-7.8); Neutrophils % 40.5 % (37.0-80.0); Platelet Count 283 K/mm3 (142-424); Red Blood Count 3.24 M/mm3 (4.60-6.20); Red Cell Distribution Width 17.8 % (11.5-17.5); White Blood Count 3.2 K/mm3 (4.8-10.8)
[2018-10-10 09:30] VITALS: BP 132/67; PULSE 63; RESP 18; TEMP 36.8; O2SAT 98
[2018-10-10 09:45] VITALS: BP 127/66; PULSE 62; RESP 16
[2018-10-10 10:00] VITALS: BP 127/65; PULSE 64; RESP 16
== END 2018-10-10 10:30 | disposition home or self-care (01) ==
LOC: INF 08:18
PROVIDERS: Visit Provider Internal Medicine Hematology & Oncology
DX: Z51.11 Encounter for antineoplastic chemotherapy (principal); C92.00 Acute myeloblastic leukemia, not having achieved remission
CPT/HCPCS: 85025; 96413; J9025

== ENCOUNTER 2018-10-13 08:19 | Outpatient (CLI) | payer MEDICARE, OTHER, SELFPAY ==
[2018-10-13 08:21] VITALS: BMI 29.9
[2018-10-13 08:44] LABS: Basophils % 0.1 % (0.1-2.0); Hematocrit 28.2 % (42.0-52.0); Hemoglobin 8.8 g/dL (14.1-18.0); Lymphocytes % 31.2 % (10-50); Mean Corpuscular HGB Conc 31.4 g/dL (31.8-35.4); Mean Corpuscular Hemoglobin 27.2 pg (27.0-31.2); Mean Corpuscular Volume 86.8 fl (80-94); Mean Platelet Volume 8.7 fl (7.4-10.4); Monocytes # 0.2 K/mm3 (0.1-1.0); Monocytes % 6.6 % (1.7-9.3); Neutrophils # 1.9 K/mm3 (1.8-7.8); Platelet Count 270 K/mm3 (142-424); Red Blood Count 3.25 M/mm3 (4.60-6.20); Red Cell Distribution Width 20.4 % (11.5-17.5); White Blood Count 3.1 K/mm3 (4.8-10.8)
[2018-10-13 08:54] LABS: Alanine Aminotransferase 53 U/L (12-78); Albumin Level 2.6 gm/dL (3.4-5.0); Albumin/Globulin Ratio 0.7 (1.1-1.8); Alkaline Phosphatase 75 U/L (46-116); Anion Gap 11.3 mEq/L (5-15); Aspartate Amino Transferase 32 U/L (15-37); Bilirubin,Total 0.8 mg/dL (0.2-1.0); Blood Urea Nitrogen 15 mg/dL (7-18); Calcium 8.9 mg/dL (8.5-10.1); Carbon Dioxide 27 mmol/L (21.0-32.0); Chloride 109 mmol/L (98-107); Creatinine Clearance Estimated 82 mL/min (50-200); Creatinine,Serum 1.08 mg/dL (0.70-1.30); Estimated Glomerular Filt Rate 67 ml/min (>60); GFR (African American) 81 ML/MIN (>60); Globulin 3.9 gm/dl (1.3-3.2); Glucose 144 mg/dL (74-106); Potassium 3.3 mmoL/L (3.5-5.1); Sodium 144 mmol/L (136-145); Total Protein,Serum 6.5 gm/dL (6.4-8.2)
== END 2018-10-13 09:20 | disposition home or self-care (01) ==
LOC: INF 08:19
PROVIDERS: Visit Provider Internal Medicine Hematology & Oncology
DX: C92.00 Acute myeloblastic leukemia, not having achieved remission (principal); Z45.2 Encounter for adjustment and management of vascular access device
CPT/HCPCS: 36415; 80053; 85025; J1642

== ENCOUNTER 2018-10-15 08:21 | Outpatient (CLI) | payer MEDICARE, OTHER, SELFPAY ==
[2018-10-15 08:23] VITALS: BMI 30.1
[2018-10-15 08:48] LABS: Basophils % 0.5 % (0.1-2.0); Eosinophils % 0.1 % (0.1-12.0); Hematocrit 28.6 % (42.0-52.0); Hemoglobin 9.1 g/dL (14.1-18.0); Lymphocytes # 0.8 K/mm3 (0.7-4.5); Lymphocytes % 37.1 % (10-50); Mean Corpuscular HGB Conc 31.7 g/dL (31.8-35.4); Mean Corpuscular Hemoglobin 28.7 pg (27.0-31.2); Mean Corpuscular Volume 90.4 fl (80-94); Mean Platelet Volume 8.7 fl (7.4-10.4); Monocytes # 0.2 K/mm3 (0.1-1.0); Monocytes % 7.9 % (1.7-9.3); Neutrophils # 1.1 K/mm3 (1.8-7.8); Neutrophils % 54.4 % (37.0-80.0); Platelet Count 243 K/mm3 (142-424); Red Blood Count 3.16 M/mm3 (4.60-6.20); Red Cell Distribution Width 21.6 % (11.5-17.5); White Blood Count 2.1 K/mm3 (4.8-10.8)
== END 2018-10-15 09:15 | disposition home or self-care (01) ==
LOC: INF 08:21
PROVIDERS: Visit Provider Internal Medicine Hematology & Oncology
DX: Z45.2 Encounter for adjustment and management of vascular access device (principal); C92.00 Acute myeloblastic leukemia, not having achieved remission
CPT/HCPCS: 85025; J1642

== ENCOUNTER 2018-10-17 08:25 | Outpatient (CLI) | payer MEDICARE, OTHER, SELFPAY ==
[2018-10-17 08:32] VITALS: BMI 30.1
[2018-10-17 09:04] LABS: Basophils % 0.6 % (0.1-2.0); Eosinophils % 0.4 % (0.1-12.0); Hemoglobin 9.2 g/dL (14.1-18.0); Lymphocytes # 0.6 K/mm3 (0.7-4.5); Lymphocytes % 50.9 % (10-50); Mean Corpuscular HGB Conc 30.8 g/dL (31.8-35.4); Mean Corpuscular Hemoglobin 28.9 pg (27.0-31.2); Mean Corpuscular Volume 93.7 fl (80-94); Mean Platelet Volume 9.2 fl (7.4-10.4); Monocytes # 0.1 K/mm3 (0.1-1.0); Monocytes % 6.3 % (1.7-9.3); Neutrophils # 0.5 K/mm3 (1.8-7.8); Neutrophils % 41.8 % (37.0-80.0); Platelet Count 191 K/mm3 (142-424); Red Cell Distribution Width 22.7 % (11.5-17.5); White Blood Count 1.2 K/mm3 (4.8-10.8)
[2018-10-17 09:07] LABS: MANUAL DIFFERENTIAL MANUAL DIFFERENTIAL (MANUAL DIFF)
[2018-10-17 09:23] LABS: Alanine Aminotransferase 46 U/L (12-78); Albumin Level 2.7 gm/dL (3.4-5.0); Albumin/Globulin Ratio 0.7 (1.1-1.8); Alkaline Phosphatase 65 U/L (46-116); Anion Gap 11.8 mEq/L (5-15); Aspartate Amino Transferase 25 U/L (15-37); Bilirubin,Total 0.8 mg/dL (0.2-1.0); Blood Urea Nitrogen 12 mg/dL (7-18); Calcium 9.1 mg/dL (8.5-10.1); Carbon Dioxide 27 mmol/L (21.0-32.0); Chloride 107 mmol/L (98-107); Creatinine Clearance Estimated 89 mL/min (50-200); Creatinine,Serum 0.98 mg/dL (0.70-1.30); Estimated Glomerular Filt Rate 75 ml/min (>60); GFR (African American) 91 ML/MIN (>60); Globulin 3.7 gm/dl (1.3-3.2); Glucose 148 mg/dL (74-106); Potassium 3.8 mmoL/L (3.5-5.1); Sodium 142 mmol/L (136-145); Total Protein,Serum 6.4 gm/dL (6.4-8.2)
[2018-10-17 09:49] LABS: Lymphocytes % 56 % (10-50); Monocytes % 2 % (2-9); Neutrophils % 42 % (42-76); Platelet Estimate Normal; Total Cells Counted 50
[2018-10-17 09:50] LABS: Anisocytosis 1+; Hypochromasia 1+; Macrocytosis 1+
== END 2018-10-17 09:40 | disposition home or self-care (01) ==
LOC: INF 08:28
PROVIDERS: Visit Provider Internal Medicine Hematology & Oncology
DX: C92.00 Acute myeloblastic leukemia, not having achieved remission (principal)
CPT/HCPCS: 80053; 85007; 85025; J1642

== ENCOUNTER 2018-10-20 08:16 | Outpatient (CLI) | payer MEDICARE, OTHER, SELFPAY ==
[2018-10-20 08:30] VITALS: BMI 30.1
[2018-10-20 08:55] LABS: Basophils % 0.4 % (0.1-2.0); Eosinophils % 0.4 % (0.1-12.0); Hematocrit 29.3 % (42.0-52.0); Hemoglobin 9.5 g/dL (14.1-18.0); Lymphocytes # 0.7 K/mm3 (0.7-4.5); Lymphocytes % 64.8 % (10-50); Mean Corpuscular HGB Conc 32.5 g/dL (31.8-35.4); Mean Corpuscular Hemoglobin 30.1 pg (27.0-31.2); Mean Corpuscular Volume 92.4 fl (80-94); Mean Platelet Volume 9.3 fl (7.4-10.4); Monocytes # 0.1 K/mm3 (0.1-1.0); Monocytes % 5.3 % (1.7-9.3); Neutrophils # 0.3 K/mm3 (1.8-7.8); Neutrophils % 29.2 % (37.0-80.0); Platelet Count 159 K/mm3 (142-424); Red Blood Count 3.17 M/mm3 (4.60-6.20); Red Cell Distribution Width 25.2 % (11.5-17.5)
[2018-10-20 08:57] LABS: MANUAL DIFFERENTIAL MANUAL DIFFERENTIAL (MANUAL DIFF)
[2018-10-20 09:06] LABS: Alanine Aminotransferase 37 U/L (12-78); Albumin Level 2.7 gm/dL (3.4-5.0); Albumin/Globulin Ratio 0.7 (1.1-1.8); Alkaline Phosphatase 59 U/L (46-116); Anion Gap 11.9 mEq/L (5-15); Aspartate Amino Transferase 23 U/L (15-37); Bilirubin,Total 0.7 mg/dL (0.2-1.0); Blood Urea Nitrogen 14 mg/dL (7-18); Calcium 8.9 mg/dL (8.5-10.1); Carbon Dioxide 28 mmol/L (21.0-32.0); Chloride 107 mmol/L (98-107); Creatinine Clearance Estimated 89 mL/min (50-200); Creatinine,Serum 0.84 mg/dL (0.70-1.30); Estimated Glomerular Filt Rate 90 ml/min (>60); GFR (African American) 108 ML/MIN (>60); Globulin 3.7 gm/dl (1.3-3.2); Glucose 152 mg/dL (74-106); Potassium 3.9 mmoL/L (3.5-5.1); Sodium 143 mmol/L (136-145); Total Protein,Serum 6.4 gm/dL (6.4-8.2)
[2018-10-20 09:30] LABS: Lymphocytes % 64 % (10-50); Monocytes % 4 % (2-9); Neutrophils % 24 % (42-76); Platelet Estimate Normal; RBC Morphology Normal; Total Cells Counted 25
== END 2018-10-20 08:50 | disposition home or self-care (01) ==
LOC: INF 08:16
PROVIDERS: Visit Provider Internal Medicine Hematology & Oncology
DX: C92.00 Acute myeloblastic leukemia, not having achieved remission (principal); Z45.2 Encounter for adjustment and management of vascular access device
CPT/HCPCS: 80053; 85007; 85025; J1642

== ENCOUNTER 2018-10-22 08:00 | Outpatient (CLI) | payer MEDICARE, OTHER, SELFPAY ==
[2018-10-22 08:15] VITALS: BMI 30.1
[2018-10-22 08:36] LABS: Basophils % 0.4 % (0.1-2.0); Eosinophils % 0.7 % (0.1-12.0); Hematocrit 30.4 % (42.0-52.0); Hemoglobin 9.7 g/dL (14.1-18.0); Lymphocytes # 0.8 K/mm3 (0.7-4.5); Lymphocytes % 78.6 % (10-50); Mean Corpuscular HGB Conc 31.8 g/dL (31.8-35.4); Mean Corpuscular Hemoglobin 29.9 pg (27.0-31.2); Mean Platelet Volume 9.2 fl (7.4-10.4); Monocytes % 2.3 % (1.7-9.3); Neutrophils # 0.2 K/mm3 (1.8-7.8); Neutrophils % 18.1 % (37.0-80.0); Platelet Count 141 K/mm3 (142-424); Red Blood Count 3.23 M/mm3 (4.60-6.20)
[2018-10-22 08:38] LABS: MANUAL DIFFERENTIAL MANUAL DIFFERENTIAL (MANUAL DIFF); Red Cell Distribution Width 26.2 % (11.5-17.5); White Blood Count 0.9 K/mm3 (4.8-10.8)
[2018-10-22 09:37] LABS: Anisocytosis 2+; Hypochromasia 1+; Lymphocytes % 76 % (10-50); Macrocytosis 2+; Monocytes % 2 % (2-9); Neutrophils % 14 % (42-76); Platelet Estimate Normal; Total Cells Counted 50
== END 2018-10-22 09:00 | disposition home or self-care (01) ==
LOC: INF 08:13
PROVIDERS: Visit Provider Internal Medicine Hematology & Oncology
DX: C92.00 Acute myeloblastic leukemia, not having achieved remission (principal); Z45.2 Encounter for adjustment and management of vascular access device
CPT/HCPCS: 85007; 85025; J1642

== ENCOUNTER 2018-10-24 08:15 | Outpatient (CLI) | payer MEDICARE, OTHER, SELFPAY ==
[2018-10-24 08:25] VITALS: BMI 30.1
[2018-10-24 08:54] LABS: Basophils % 0.9 % (0.1-2.0); Eosinophils % 0.3 % (0.1-12.0); Hematocrit 30.5 % (42.0-52.0); Hemoglobin 9.7 g/dL (14.1-18.0); Lymphocytes # 0.7 K/mm3 (0.7-4.5); Mean Corpuscular HGB Conc 31.7 g/dL (31.8-35.4); Mean Corpuscular Hemoglobin 30.4 pg (27.0-31.2); Mean Platelet Volume 8.4 fl (7.4-10.4); Monocytes % 1.1 % (1.7-9.3); Neutrophils # 0.1 K/mm3 (1.8-7.8); Platelet Count 121 K/mm3 (142-424); Red Blood Count 3.18 M/mm3 (4.60-6.20)
[2018-10-24 09:00] LABS: Alanine Aminotransferase 52 U/L (12-78); Albumin Level 2.9 gm/dL (3.4-5.0); Albumin/Globulin Ratio 0.8 (1.1-1.8); Alkaline Phosphatase 64 U/L (46-116); Anion Gap 9.8 mEq/L (5-15); Aspartate Amino Transferase 31 U/L (15-37); Bilirubin,Total 0.7 mg/dL (0.2-1.0); Blood Urea Nitrogen 12 mg/dL (7-18); Carbon Dioxide 29 mmol/L (21.0-32.0); Chloride 107 mmol/L (98-107); Creatinine Clearance Estimated 89 mL/min (50-200); Estimated Glomerular Filt Rate 95 ml/min (>60); GFR (African American) 115 ML/MIN (>60); Globulin 3.7 gm/dl (1.3-3.2); Glucose 124 mg/dL (74-106); Potassium 3.8 mmoL/L (3.5-5.1); Sodium 142 mmol/L (136-145); Total Protein,Serum 6.6 gm/dL (6.4-8.2)
[2018-10-24 09:15] LABS: Neutrophils % 13.7 % (37.0-80.0); Red Cell Distribution Width 27.1 % (11.5-17.5); White Blood Count 0.8 K/mm3 (4.8-10.8)
[2018-10-24 09:16] LABS: MANUAL DIFFERENTIAL MANUAL DIFFERENTIAL (MANUAL DIFF)
[2018-10-24 09:51] LABS: Anisocytosis 2+; Eosinophils % 2 % (0-3); Lymphocytes % 72 % (10-50); Macrocytosis 1+; Monocytes % 2 % (2-9); Neutrophils % 12 % (42-76); Platelet Estimate Normal; Total Cells Counted 50
== END 2018-10-24 09:35 | disposition home or self-care (01) ==
LOC: INF 08:19
PROVIDERS: Visit Provider Internal Medicine Hematology & Oncology
DX: C92.00 Acute myeloblastic leukemia, not having achieved remission (principal); Z45.2 Encounter for adjustment and management of vascular access device
CPT/HCPCS: 80053; 85007; 85025; J1642

== ENCOUNTER 2018-10-27 08:16 | Outpatient (CLI) | payer MEDICARE, OTHER, SELFPAY ==
[2018-10-27 08:22] VITALS: BMI 30.1
[2018-10-27 08:56] LABS: Alanine Aminotransferase 43 U/L (12-78); Albumin Level 2.9 gm/dL (3.4-5.0); Albumin/Globulin Ratio 0.8 (1.1-1.8); Alkaline Phosphatase 57 U/L (46-116); Anion Gap 10.8 mEq/L (5-15); Aspartate Amino Transferase 28 U/L (15-37); Bilirubin,Total 0.8 mg/dL (0.2-1.0); Blood Urea Nitrogen 15 mg/dL (7-18); Carbon Dioxide 29 mmol/L (21.0-32.0); Chloride 106 mmol/L (98-107); Creatinine Clearance Estimated 89 mL/min (50-200); Creatinine,Serum 0.87 mg/dL (0.70-1.30); Estimated Glomerular Filt Rate 86 ml/min (>60); GFR (African American) 104 ML/MIN (>60); Globulin 3.8 gm/dl (1.3-3.2); Glucose 131 mg/dL (74-106); Potassium 3.8 mmoL/L (3.5-5.1); Sodium 142 mmol/L (136-145); Total Protein,Serum 6.7 gm/dL (6.4-8.2)
[2018-10-27 09:03] LABS: Basophils % 0.8 % (0.1-2.0); Eosinophils % 0.2 % (0.1-12.0); Hematocrit 29.4 % (42.0-52.0); Hemoglobin 9.5 g/dL (14.1-18.0); Lymphocytes # 0.7 K/mm3 (0.7-4.5); Mean Corpuscular HGB Conc 32.2 g/dL (31.8-35.4); Mean Corpuscular Hemoglobin 31.2 pg (27.0-31.2); Mean Platelet Volume 8.9 fl (7.4-10.4); Monocytes % 1.6 % (1.7-9.3); Platelet Count 85 K/mm3 (142-424); Red Blood Count 3.03 M/mm3 (4.60-6.20)
[2018-10-27 09:05] LABS: Neutrophils % 4.5 % (37.0-80.0); Red Cell Distribution Width 27.4 % (11.5-17.5)
[2018-10-27 09:11] LABS: White Blood Count 0.8 K/mm3 (4.8-10.8)
[2018-10-27 09:12] LABS: MANUAL DIFFERENTIAL MANUAL DIFFERENTIAL (MANUAL DIFF)
[2018-10-27 09:53] LABS: Eosinophils % 4 % (0-3); Lymphocytes % 92 % (10-50); Neutrophils % 4 % (42-76); Total Cells Counted 25
[2018-10-27 09:54] LABS: Anisocytosis 2+
[2018-10-27 09:56] LABS: Hypochromasia 2+; Tear Drop Cells 1+
[2018-10-27 09:59] LABS: Platelet Estimate Moderate Decrease
== END 2018-10-27 10:31 | disposition home or self-care (01) ==
LOC: INF 08:16
PROVIDERS: Visit Provider Internal Medicine Hematology & Oncology
DX: C92.00 Acute myeloblastic leukemia, not having achieved remission (principal)
CPT/HCPCS: 80053; 85007; 85025; J1642

== ENCOUNTER 2018-10-29 08:10 | Outpatient (CLI) | payer MEDICARE, OTHER, SELFPAY ==
[2018-10-29 08:16] VITALS: BMI 30.1
[2018-10-29 08:35] LABS: Basophils % 0.7 % (0.1-2.0); Eosinophils % 1.1 % (0.1-12.0); Hematocrit 29.9 % (42.0-52.0); Hemoglobin 9.5 g/dL (14.1-18.0); Lymphocytes # 0.8 K/mm3 (0.7-4.5); Lymphocytes % 87.1 % (10-50); Mean Corpuscular HGB Conc 31.9 g/dL (31.8-35.4); Mean Corpuscular Hemoglobin 31.3 pg (27.0-31.2); Mean Corpuscular Volume 98.2 fl (80-94); Mean Platelet Volume 10.2 fl (7.4-10.4); Monocytes % 0.6 % (1.7-9.3); Neutrophils # 0.1 K/mm3 (1.8-7.8); Platelet Count 65 K/mm3 (142-424); Red Blood Count 3.05 M/mm3 (4.60-6.20)
[2018-10-29 08:38] LABS: Neutrophils % 10.6 % (37.0-80.0); Red Cell Distribution Width 27.4 % (11.5-17.5); White Blood Count 0.9 K/mm3 (4.8-10.8)
[2018-10-29 08:39] LABS: MANUAL DIFFERENTIAL MANUAL DIFFERENTIAL (MANUAL DIFF)
[2018-10-29 08:56] LABS: Lymphocytes % 80 % (10-50); Neutrophils % 12 % (42-76); Total Cells Counted 25
[2018-10-29 09:10] LABS: Platelet Estimate Marked Decrease
[2018-10-29 09:11] LABS: Anisocytosis 2+; Microcytosis 1+
== END 2018-10-29 09:05 | disposition home or self-care (01) ==
LOC: INF 08:15
PROVIDERS: Visit Provider Internal Medicine Hematology & Oncology
DX: C92.00 Acute myeloblastic leukemia, not having achieved remission (principal); Z45.2 Encounter for adjustment and management of vascular access device
CPT/HCPCS: 85007; 85025; J1642

== ENCOUNTER 2018-10-31 08:20 | Outpatient (CLI) | payer MEDICARE, OTHER, SELFPAY ==
[2018-10-31 08:23] VITALS: BMI 27.8
[2018-10-31 08:39] LABS: Basophils % 0.9 % (0.1-2.0); Eosinophils % 0.4 % (0.1-12.0); Hematocrit 28.4 % (42.0-52.0); Hemoglobin 9.3 g/dL (14.1-18.0); Lymphocytes # 0.7 K/mm3 (0.7-4.5); Lymphocytes % 86.2 % (10-50); Mean Corpuscular HGB Conc 32.8 g/dL (31.8-35.4); Mean Corpuscular Hemoglobin 32.4 pg (27.0-31.2); Mean Corpuscular Volume 98.6 fl (80-94); Mean Platelet Volume 9.4 fl (7.4-10.4); Monocytes % 2.1 % (1.7-9.3); Neutrophils # 0.1 K/mm3 (1.8-7.8); Platelet Count 62 K/mm3 (142-424); Red Blood Count 2.88 M/mm3 (4.60-6.20)
[2018-10-31 08:50] LABS: Neutrophils % 10.4 % (37.0-80.0); Red Cell Distribution Width 27.4 % (11.5-17.5)
[2018-10-31 08:51] LABS: White Blood Count 0.8 K/mm3 (4.8-10.8)
[2018-10-31 08:52] LABS: MANUAL DIFFERENTIAL MANUAL DIFFERENTIAL (MANUAL DIFF)
[2018-10-31 09:13] LABS: Alanine Aminotransferase 39 U/L (12-78); Albumin Level 2.9 gm/dL (3.4-5.0); Albumin/Globulin Ratio 0.8 (1.1-1.8); Alkaline Phosphatase 58 U/L (46-116); Anion Gap 11.9 mEq/L (5-15); Aspartate Amino Transferase 29 U/L (15-37); Bilirubin,Total 0.6 mg/dL (0.2-1.0); Blood Urea Nitrogen 15 mg/dL (7-18); Calcium 9.1 mg/dL (8.5-10.1); Carbon Dioxide 28 mmol/L (21.0-32.0); Chloride 106 mmol/L (98-107); Creatinine Clearance Estimated 81 mL/min (50-200); Creatinine,Serum 0.86 mg/dL (0.70-1.30); Estimated Glomerular Filt Rate 87 ml/min (>60); GFR (African American) 105 ML/MIN (>60); Globulin 3.8 gm/dl (1.3-3.2); Glucose 144 mg/dL (74-106); Potassium 3.9 mmoL/L (3.5-5.1); Sodium 142 mmol/L (136-145); Total Protein,Serum 6.7 gm/dL (6.4-8.2)
[2018-10-31 09:26] LABS: Anisocytosis 1+; Hypochromasia 1+; Lymphocytes % 64 % (10-50); Macrocytosis 2+; Monocytes % 8 % (2-9); Neutrophils % 8 % (42-76); Total Cells Counted 25
[2018-10-31 09:27] LABS: Platelet Estimate Moderate Decrease
== END 2018-10-31 09:05 | disposition home or self-care (01) ==
LOC: INF 08:20
PROVIDERS: Visit Provider Internal Medicine Hematology & Oncology
DX: C92.00 Acute myeloblastic leukemia, not having achieved remission (principal)
CPT/HCPCS: 80053; 85007; 85025; J1642

== ENCOUNTER 2018-11-03 08:24 | Outpatient (CLI) | payer MEDICARE, OTHER, SELFPAY ==
[2018-11-03 08:25] VITALS: BMI 30.1
[2018-11-03 08:42] LABS: Basophils % 0.1 % (0.1-2.0); Lymphocytes # 0.7 K/mm3 (0.7-4.5); Lymphocytes % 78.9 % (10-50); Neutrophils # 0.1 K/mm3 (1.8-7.8)
[2018-11-03 08:43] LABS: Red Cell Distribution Width 27.4 % (11.5-17.5)
[2018-11-03 08:46] LABS: Eosinophils % 0.1 % (0.1-12.0); Hematocrit 26.4 % (42.0-52.0); Hemoglobin 8.4 g/dL (14.1-18.0); Mean Corpuscular HGB Conc 31.9 g/dL (31.8-35.4); Mean Corpuscular Hemoglobin 31.7 pg (27.0-31.2); Mean Corpuscular Volume 99.5 fl (80-94); Neutrophils % 16.9 % (37.0-80.0); Red Blood Count 2.65 M/mm3 (4.60-6.20)
[2018-11-03 08:50] LABS: White Blood Count 0.9 K/mm3 (4.8-10.8)
[2018-11-03 08:51] LABS: MANUAL DIFFERENTIAL MANUAL DIFFERENTIAL (MANUAL DIFF); Platelet Count 49 K/mm3 (142-424)
[2018-11-03 09:05] LABS: Lymphocytes % 80 % (10-50); Neutrophils % 8 % (42-76); Platelet Estimate Marked Decrease; Total Cells Counted 25
[2018-11-03 09:07] LABS: Acanthocytes 1+; Macrocytosis 1+; Microcytosis 2+; Schistocytes 1+
[2018-11-03 09:36] VITALS: BP 127/72; PULSE 59; RESP 18; TEMP 36.8; O2SAT 97
[2018-11-03 10:06] VITALS: BP 122/78; PULSE 61; RESP 18; O2SAT 97
[2018-11-03 10:26] VITALS: BP 124/74; PULSE 58; RESP 18; O2SAT 96
== END 2018-11-03 10:30 | disposition home or self-care (01) ==
LOC: INF 08:24
PROVIDERS: Visit Provider Internal Medicine Hematology & Oncology
DX: Z51.11 Encounter for antineoplastic chemotherapy (principal); C92.00 Acute myeloblastic leukemia, not having achieved remission
CPT/HCPCS: 85007; 85025; 96413; J9025

== ENCOUNTER 2018-11-04 08:23 | Outpatient (CLI) | payer MEDICARE, OTHER, SELFPAY ==
[2018-11-04 09:03] VITALS: BP 130/73; PULSE 58; RESP 18; TEMP 36.8; O2SAT 98
[2018-11-04 09:33] VITALS: BP 129/77; PULSE 59; RESP 18; O2SAT 97
[2018-11-04 10:00] VITALS: BP 131/79; PULSE 60; RESP 18; O2SAT 98
== END 2018-11-04 10:16 | disposition home or self-care (01) ==
LOC: INF 08:23
PROVIDERS: Visit Provider Internal Medicine Medical Oncology
DX: Z51.11 Encounter for antineoplastic chemotherapy (principal); C92.00 Acute myeloblastic leukemia, not having achieved remission
CPT/HCPCS: 96413; J9025

== ENCOUNTER 2018-11-05 08:10 | Outpatient (CLI) | payer MEDICARE, OTHER, SELFPAY ==
[2018-11-05 08:18] VITALS: BMI 27.8
[2018-11-05 08:32] LABS: Basophils % 0.1 % (0.1-2.0); Eosinophils % 0.6 % (0.1-12.0); Hematocrit 26.7 % (42.0-52.0); Hemoglobin 8.8 g/dL (14.1-18.0); Lymphocytes # 0.8 K/mm3 (0.7-4.5); Lymphocytes % 69.1 % (10-50); Mean Corpuscular HGB Conc 32.9 g/dL (31.8-35.4); Mean Corpuscular Hemoglobin 32.9 pg (27.0-31.2); Mean Platelet Volume 9.8 fl (7.4-10.4); Monocytes # 0.1 K/mm3 (0.1-1.0); Monocytes % 5.2 % (1.7-9.3); Neutrophils # 0.3 K/mm3 (1.8-7.8); Neutrophils % 24.9 % (37.0-80.0); Red Blood Count 2.67 M/mm3 (4.60-6.20); White Blood Count 1.2 K/mm3 (4.8-10.8)
[2018-11-05 08:58] LABS: Red Cell Distribution Width 27.4 % (11.5-17.5)
[2018-11-05 08:59] LABS: Platelet Count 43 K/mm3 (142-424)
[2018-11-05 09:00] LABS: MANUAL DIFFERENTIAL MANUAL DIFFERENTIAL (MANUAL DIFF)
[2018-11-05 09:40] VITALS: BP 131/64; PULSE 54; RESP 18; TEMP 36.6; O2SAT 99
[2018-11-05 09:55] VITALS: BP 141/66; PULSE 59; RESP 18
[2018-11-05 10:04] LABS: Anisocytosis 1+; Lymphocytes % 64 % (10-50); Macrocytosis 2+; Neutrophils % 16 % (42-76); Total Cells Counted 25
[2018-11-05 10:05] LABS: Platelet Estimate Marked Decrease
[2018-11-05 10:10] VITALS: BP 127/58; PULSE 55; RESP 18
== END 2018-11-05 10:30 | disposition home or self-care (01) ==
LOC: INF 08:15
PROVIDERS: Visit Provider Internal Medicine Medical Oncology
DX: Z51.11 Encounter for antineoplastic chemotherapy (principal); C92.00 Acute myeloblastic leukemia, not having achieved remission
CPT/HCPCS: 85007; 85025; 96413; J9025

== ENCOUNTER 2018-11-06 08:28 | Outpatient (CLI) | payer MEDICARE, OTHER, SELFPAY ==
[2018-11-06 09:10] VITALS: BP 147/70; PULSE 61; RESP 18; O2SAT 98
[2018-11-06 09:25] VITALS: BP 159/78; PULSE 58; RESP 18; TEMP 36.7
[2018-11-06 09:58] VITALS: BP 143/73; PULSE 56; RESP 18; TEMP 36.8
== END 2018-11-06 09:58 | disposition home or self-care (01) ==
LOC: INF 08:28
PROVIDERS: Visit Provider Internal Medicine Medical Oncology
DX: Z51.11 Encounter for antineoplastic chemotherapy (principal); C92.00 Acute myeloblastic leukemia, not having achieved remission
CPT/HCPCS: 96413; J9025

== ENCOUNTER 2018-11-07 08:29 | Outpatient (CLI) | payer MEDICARE, OTHER, SELFPAY ==
[2018-11-07 08:32] VITALS: BMI 27.8
[2018-11-07 08:45] LABS: Basophils % 0.2 % (0.1-2.0); Eosinophils % 0.1 % (0.1-12.0); Hematocrit 26.2 % (42.0-52.0); Hemoglobin 8.6 g/dL (14.1-18.0); Lymphocytes # 0.9 K/mm3 (0.7-4.5); Lymphocytes % 67.9 % (10-50); Mean Corpuscular HGB Conc 32.7 g/dL (31.8-35.4); Mean Corpuscular Hemoglobin 32.8 pg (27.0-31.2); Mean Corpuscular Volume 100.4 fl (80-94); Mean Platelet Volume 8.3 fl (7.4-10.4); Monocytes # 0.1 K/mm3 (0.1-1.0); Monocytes % 5.3 % (1.7-9.3); Neutrophils # 0.4 K/mm3 (1.8-7.8); Neutrophils % 26.5 % (37.0-80.0); Red Blood Count 2.61 M/mm3 (4.60-6.20); White Blood Count 1.4 K/mm3 (4.8-10.8)
[2018-11-07 08:47] LABS: Red Cell Distribution Width 27.4 % (11.5-17.5)
[2018-11-07 08:48] LABS: Platelet Count 32 K/mm3 (142-424)
[2018-11-07 08:49] LABS: MANUAL DIFFERENTIAL MANUAL DIFFERENTIAL (MANUAL DIFF)
[2018-11-07 08:57] LABS: Alanine Aminotransferase 41 U/L (12-78); Albumin/Globulin Ratio 0.9 (1.1-1.8); Alkaline Phosphatase 52 U/L (46-116); Anion Gap 8.8 mEq/L (5-15); Aspartate Amino Transferase 30 U/L (15-37); Bilirubin,Total 0.4 mg/dL (0.2-1.0); Blood Urea Nitrogen 15 mg/dL (7-18); Calcium 9.3 mg/dL (8.5-10.1); Carbon Dioxide 28 mmol/L (21.0-32.0); Chloride 106 mmol/L (98-107); Creatinine Clearance Estimated 81 mL/min (50-200); Creatinine,Serum 0.93 mg/dL (0.70-1.30); Estimated Glomerular Filt Rate 79 ml/min (>60); GFR (African American) 96 ML/MIN (>60); Globulin 3.4 gm/dl (1.3-3.2); Glucose 131 mg/dL (74-106); Potassium 3.8 mmoL/L (3.5-5.1); Sodium 139 mmol/L (136-145); Total Protein,Serum 6.4 gm/dL (6.4-8.2)
[2018-11-07 09:22] LABS: Lymphocytes % 62 % (10-50); Monocytes % 4 % (2-9); Neutrophils % 26 % (42-76); Platelet Estimate Marked Decrease; Total Cells Counted 50
[2018-11-07 09:23] LABS: Anisocytosis 1+; Macrocytosis 1+
[2018-11-07 09:42] VITALS: BP 146/78; PULSE 61; RESP 18; TEMP 36.6; O2SAT 100
[2018-11-07 10:00] VITALS: BP 140/67; PULSE 54; RESP 18; TEMP 36.6
[2018-11-07 10:30] VITALS: BP 141/66; PULSE 52; RESP 18; TEMP 36.6
== END 2018-11-07 10:40 | disposition home or self-care (01) ==
LOC: INF 08:29
PROVIDERS: Visit Provider Internal Medicine Medical Oncology
DX: Z51.11 Encounter for antineoplastic chemotherapy (principal); C92.00 Acute myeloblastic leukemia, not having achieved remission
CPT/HCPCS: 80053; 85007; 85025; 96413; J9025

== ENCOUNTER 2018-11-10 08:25 | Outpatient (CLI) | payer MEDICARE, OTHER, SELFPAY ==
[2018-11-10] VITALS (7 sets, daily range): BP systolic 121–135; BP diastolic 60–68; PULSE 54–60; RESP 18; TEMP 36.3–36.4; O2SAT 98–99; BMI 27.8
[2018-11-10 08:44] LABS: Basophils % 0.1 % (0.1-2.0); Hematocrit 24.3 % (42.0-52.0); Hemoglobin 8.2 g/dL (14.1-18.0); Lymphocytes # 0.9 K/mm3 (0.7-4.5); Lymphocytes % 70.4 % (10-50); Mean Corpuscular HGB Conc 33.6 g/dL (31.8-35.4); Mean Corpuscular Hemoglobin 33.5 pg (27.0-31.2); Mean Corpuscular Volume 99.5 fl (80-94); Mean Platelet Volume 8.6 fl (7.4-10.4); Monocytes % 3.2 % (1.7-9.3); Neutrophils # 0.3 K/mm3 (1.8-7.8); Neutrophils % 26.4 % (37.0-80.0); Red Blood Count 2.44 M/mm3 (4.60-6.20); White Blood Count 1.2 K/mm3 (4.8-10.8)
[2018-11-10 08:48] LABS: MANUAL DIFFERENTIAL MANUAL DIFFERENTIAL (MANUAL DIFF); Platelet Count 20 K/mm3 (142-424)
[2018-11-10 08:55] LABS: Alanine Aminotransferase 48 U/L (12-78); Albumin Level 3.1 gm/dL (3.4-5.0); Alkaline Phosphatase 49 U/L (46-116); Anion Gap 11.8 mEq/L (5-15); Aspartate Amino Transferase 36 U/L (15-37); Bilirubin,Total 0.5 mg/dL (0.2-1.0); Blood Urea Nitrogen 17 mg/dL (7-18); Calcium 9.1 mg/dL (8.5-10.1); Carbon Dioxide 28 mmol/L (21.0-32.0); Chloride 106 mmol/L (98-107); Creatinine Clearance Estimated 81 mL/min (50-200); Creatinine,Serum 0.92 mg/dL (0.70-1.30); Estimated Glomerular Filt Rate 80 ml/min (>60); GFR (African American) 97 ML/MIN (>60); Globulin 3.2 gm/dl (1.3-3.2); Glucose 135 mg/dL (74-106); Potassium 3.8 mmoL/L (3.5-5.1); Sodium 142 mmol/L (136-145); Total Protein,Serum 6.3 gm/dL (6.4-8.2)
[2018-11-10 09:01] LABS: Lymphocytes % 64 % (10-50); Macrocytosis 2+; Microcytosis 3+; Neutrophils % 30 % (42-76); Platelet Estimate Marked Decrease; Total Cells Counted 50
[2018-11-10 09:02] LABS: Schistocytes 1+
--- NOTE | 2018-11-10 09:21 | PC.NURSE ---
platelets ordered from [facility] per [facility] lab. lab expects plts to arrive later this afternoon. informed pt/. lab staff at and blood drawn for type and crossmatch. pac flushed per protocol and wrapped. pt to return later this after noon once plts arrive for transfusion. pt/ leaving facility and returning home. instructed pt/ that staff would call once plts arrive to facility.
[2018-11-10 14:32] LABS: Platelet Count 61 K/mm3 (142-424)
== END 2018-11-10 14:36 | disposition home or self-care (01) ==
LOC: INF 08:25
PROVIDERS: Visit Provider Internal Medicine Hematology & Oncology
DX: C92.00 Acute myeloblastic leukemia, not having achieved remission (principal); Z45.2 Encounter for adjustment and management of vascular access device
CPT/HCPCS: 36430; 80053; 85007; 85025; 85049; 86900; 86901; J1642; P9034

== ENCOUNTER 2018-11-12 08:12 | Outpatient (CLI) | payer MEDICARE, OTHER, SELFPAY ==
[2018-11-12 08:14] VITALS: BMI 27.8
--- NOTE | 2018-11-12 08:15 | PC.NURSE ---
pt pac accessed to obtain blood for cbc as ordered per md today. specimen sent to lab for analysis.
[2018-11-12 08:24] LABS: Basophils % 0.2 % (0.1-2.0); Eosinophils % 0.2 % (0.1-12.0); Lymphocytes # 0.9 K/mm3 (0.7-4.5); Lymphocytes % 71.4 % (10-50); Mean Corpuscular HGB Conc 33.6 g/dL (31.8-35.4); Mean Corpuscular Hemoglobin 33.6 pg (27.0-31.2); Monocytes # 0.1 K/mm3 (0.1-1.0); Monocytes % 3.7 % (1.7-9.3); Neutrophils # 0.3 K/mm3 (1.8-7.8); Neutrophils % 24.4 % (37.0-80.0); Red Blood Count 2.36 M/mm3 (4.60-6.20); White Blood Count 1.2 K/mm3 (4.8-10.8)
[2018-11-12 08:25] LABS: Hemoglobin 7.9 g/dL (14.1-18.0); Red Cell Distribution Width 26.4 % (11.5-17.5)
[2018-11-12 08:26] LABS: Hematocrit 23.6 % (42.0-52.0); Platelet Count 42 K/mm3 (142-424)
[2018-11-12 08:27] LABS: MANUAL DIFFERENTIAL MANUAL DIFFERENTIAL (MANUAL DIFF)
[2018-11-12 09:06] LABS: Lymphocytes % 60 % (10-50); Monocytes % 12 % (2-9); Neutrophils % 24 % (42-76); Total Cells Counted 50
[2018-11-12 09:07] LABS: Platelet Estimate Marked Decrease; RBC Morphology Normal
== END 2018-11-12 08:44 | disposition home or self-care (01) ==
LOC: INF 08:12
PROVIDERS: Visit Provider Internal Medicine Hematology & Oncology
DX: C92.00 Acute myeloblastic leukemia, not having achieved remission (principal)
CPT/HCPCS: 85007; 85025; J1642

== ENCOUNTER 2018-11-14 08:20 | Outpatient (CLI) | payer MEDICARE, OTHER, SELFPAY ==
[2018-11-14 08:28] VITALS: BMI 27.8
[2018-11-14 08:56] LABS: Basophils % 0.4 % (0.1-2.0); Eosinophils % 0.5 % (0.1-12.0); Lymphocytes # 0.8 K/mm3 (0.7-4.5); Lymphocytes % 73.6 % (10-50); Mean Corpuscular HGB Conc 33.1 g/dL (31.8-35.4); Mean Corpuscular Hemoglobin 32.9 pg (27.0-31.2); Mean Corpuscular Volume 99.6 fl (80-94); Mean Platelet Volume 8.9 fl (7.4-10.4); Monocytes % 3.7 % (1.7-9.3); Neutrophils # 0.3 K/mm3 (1.8-7.8); Neutrophils % 21.7 % (37.0-80.0); Red Blood Count 2.27 M/mm3 (4.60-6.20); White Blood Count 1.1 K/mm3 (4.8-10.8)
[2018-11-14 09:07] LABS: Alanine Aminotransferase 39 U/L (12-78); Albumin/Globulin Ratio 0.9 (1.1-1.8); Alkaline Phosphatase 45 U/L (46-116); Anion Gap 11.9 mEq/L (5-15); Aspartate Amino Transferase 27 U/L (15-37); Bilirubin,Total 0.5 mg/dL (0.2-1.0); Blood Urea Nitrogen 15 mg/dL (7-18); Calcium 9.2 mg/dL (8.5-10.1); Carbon Dioxide 27 mmol/L (21.0-32.0); Chloride 106 mmol/L (98-107); Creatinine Clearance Estimated 81 mL/min (50-200); Creatinine,Serum 0.75 mg/dL (0.70-1.30); Estimated Glomerular Filt Rate 102 ml/min (>60); GFR (African American) 123 ML/MIN (>60); Globulin 3.5 gm/dl (1.3-3.2); Glucose 122 mg/dL (74-106); Potassium 3.9 mmoL/L (3.5-5.1); Sodium 141 mmol/L (136-145); Total Protein,Serum 6.5 gm/dL (6.4-8.2)
[2018-11-14 09:27] LABS: Hematocrit 22.6 % (42.0-52.0); Hemoglobin 7.5 g/dL (14.1-18.0); Red Cell Distribution Width 25.5 % (11.5-17.5)
[2018-11-14 09:28] LABS: MANUAL DIFFERENTIAL MANUAL DIFFERENTIAL (MANUAL DIFF); Platelet Count 29 K/mm3 (142-424)
[2018-11-14 09:31] LABS: Anisocytosis 2+; Lymphocytes % 64 % (10-50); Macrocytosis 1+; Neutrophils % 20 % (42-76); Platelet Estimate Marked Decrease; Total Cells Counted 25
[2018-11-14 09:32] LABS: Tear Drop Cells 1+
== END 2018-11-14 10:25 | disposition home or self-care (01) ==
LOC: INF 08:27
PROVIDERS: Visit Provider Internal Medicine Hematology & Oncology
DX: C92.00 Acute myeloblastic leukemia, not having achieved remission (principal)
CPT/HCPCS: 80053; 85007; 85025; J1642

== ENCOUNTER → 2018-11-17 08:08 | Outpatient (CLI) | payer MEDICARE, OTHER, SELFPAY ==
[2018-11-17] VITALS (10 sets, daily range): BP systolic 112–134; BP diastolic 52–64; PULSE 58–69; RESP 16–18; TEMP 36.6–36.8; O2SAT 96–98; BMI 27.2
--- NOTE | 2018-11-17 08:53 | PC.NURSE ---
0845: ACCESSED LEFT CHEST WALL POWER PORT WITH 1 POWER PORT NEEDLE UNDER STERILE TECHNIQUE. SITE FLUSHED WITHOUT DIFFICULTY AND GOOD BLOOD RETURN NOTED. BLOOD DRAWN AND SENT TO LAB. WILL AWAIT LAB RESULTS TO SEE IF PATIENT NEEDS BLOOD. PATIENT GIVEN WATER. PT SITTING UP IN CHAIR WITH AT BEDSIDE. CALL LIGHT GIVEN. PATIENT IS AWARE THAT WE ARE WAITING ON RESULTS OF BLOOD WORK.
[2018-11-17 09:16] LABS: Basophils % 0.2 % (0.1-2.0); Eosinophils % 0.3 % (0.1-12.0); Lymphocytes # 0.9 K/mm3 (0.7-4.5); Mean Corpuscular HGB Conc 33.5 g/dL (31.8-35.4); Mean Corpuscular Hemoglobin 33.3 pg (27.0-31.2); Mean Corpuscular Volume 99.6 fl (80-94); Mean Platelet Volume 6.6 fl (7.4-10.4); Monocytes # 0.1 K/mm3 (0.1-1.0); Monocytes % 3.9 % (1.7-9.3); Neutrophils # 0.2 K/mm3 (1.8-7.8); Neutrophils % 19.6 % (37.0-80.0); Red Blood Count 2.21 M/mm3 (4.60-6.20); White Blood Count 1.2 K/mm3 (4.8-10.8)
[2018-11-17 09:19] LABS: Red Cell Distribution Width 26.1 % (11.5-17.5)
[2018-11-17 09:21] LABS: Hemoglobin 7.4 g/dL (14.1-18.0); Platelet Count 10 K/mm3 (142-424)
[2018-11-17 09:24] LABS: MANUAL DIFFERENTIAL MANUAL DIFFERENTIAL (MANUAL DIFF)
[2018-11-17 09:25] LABS: Alanine Aminotransferase 37 U/L (12-78); Albumin Level 3.1 gm/dL (3.4-5.0); Albumin/Globulin Ratio 0.9 (1.1-1.8); Alkaline Phosphatase 46 U/L (46-116); Aspartate Amino Transferase 30 U/L (15-37); Bilirubin,Total 0.4 mg/dL (0.2-1.0); Blood Urea Nitrogen 20 mg/dL (7-18); Calcium 9.3 mg/dL (8.5-10.1); Carbon Dioxide 27 mmol/L (21.0-32.0); Chloride 106 mmol/L (98-107); Creatinine Clearance Estimated 79 mL/min (50-200); Creatinine,Serum 0.89 mg/dL (0.70-1.30); Estimated Glomerular Filt Rate 84 ml/min (>60); GFR (African American) 101 ML/MIN (>60); Globulin 3.4 gm/dl (1.3-3.2); Glucose 129 mg/dL (74-106); Sodium 141 mmol/L (136-145); Total Protein,Serum 6.5 gm/dL (6.4-8.2)
[2018-11-17 09:54] LABS: Lymphocytes % 60 % (10-50); Monocytes % 4 % (2-9); Neutrophils % 12 % (42-76); Platelet Estimate Marked Decrease; Total Cells Counted 25
[2018-11-17 09:55] LABS: Anisocytosis 2+; Macrocytosis 2+
--- NOTE | 2018-11-17 14:58 | PC.NURSE ---
lab called this morning and stated that [facility] called and stated they did not have any O+ platelets so pt would have to get A+ instead. notified willie gibbs from infusion and she stated that it is noted in pt's chart that it is okay for him to have A+ platelets and he has had A+ platelets on several other outpatient visits and has tolerated fine.
[2018-11-17 16:45] LABS: Platelet Count 15 K/mm3 (142-424)
--- NOTE | 2018-11-17 17:32 | PC.NURSE ---
CALLED PT TO VERIFY IF HE WANTED TO COME BACK TOMORROW 2 GET THE 2 UNITS OF PRBC'S B/C AFTER THE PLATELETS LAB CALLED AND STATED PT'S HEMOGLOBIN DROPPED TO 6.8 AND PLATELET COUNT ONLY WENT UP TO 15. PT STATED THEY WOULD COME BACK IN THE MORNING FOR TRANSFUSION. NOTIFIED LENY BECERRIL FROM INFUSION AND SHE STATED TO GO ON AND PUT THE ORDERS IN FOR 2 UNITS OF PRBC'S AND PLATELETS AND SHE WOULD PUT PT ON THE SCHEDULE FOR TOMORROW.
== END ==
PROVIDERS: PCP Family Medicine; Visit Provider Internal Medicine Hematology & Oncology
DX: C92.00 Acute myeloblastic leukemia, not having achieved remission (principal)
CPT/HCPCS: 36430; 80053; 85007; 85025; 85049; 86850; P9034

== ENCOUNTER 2018-11-18 08:22 | Outpatient (CLI) | payer MEDICARE, OTHER, SELFPAY ==
[2018-11-18] VITALS (27 sets, daily range): BP systolic 119–147; BP diastolic 59–85; PULSE 52–62; RESP 18–20; TEMP 36.3–36.9; O2SAT 97–100; BMI 27.8
--- NOTE | 2018-11-18 10:18 | PC.NURSE ---
11/18/18 0910 Transfusion of 1st unit of PRBC's initiated at this time. VSS. Lungs CTA. Reviewed s/s transfusion reaction with pt/pt verbs understanding.
--- NOTE | 2018-11-18 10:19 | PC.NURSE ---
11/18/18 1010 Pt tolerating blood transfusion well. Pt denies any c/o. is at bedside. VSS. Resp easy/reg. Pt talking/laughing with staff. No problems noted
[2018-11-18 15:17] LABS: Hematocrit 25.5 % (42.0-52.0); Hemoglobin 8.3 g/dL (14.1-18.0)
[2018-11-18 15:19] LABS: Platelet Count 58 K/mm3 (142-424)
--- NOTE | 2018-11-18 15:53 | PC.NURSE ---
11/18/18 1105 1st unit of blood transfused. Pt has freda well with no problems noted. VSS. Resp easy/reg. Denies c/o. No s/s transfusion reaction. 11/18/18 1135 Transfusion of 2nd unit of PRBC's initiated. VSS. Resp easy/reg. Skin warm/dry to touch. pt denies c/o. L portacath patent with no problems noted. Lungs CTA. 11/18/18 1315 Transfusion of 2nd unit of PRBC's complete. Pt has freda well with no problems noted/no s/s transfusion reaction noted. Pt denies any c/o. VSS. Resp easy/reg. 11/18/18 1345 Transfusion of platelets initiated at this time. Pt remains without complaints. Denies any problems/issues. VSS. Skin warm/dry to touch. Resp easy/reg. Lungs CTA. 11/18/18 1420 Transfusion of platelets complete at this time. Pt has freda well with no problems or s/s reaction noted. VSS. Denies c/o. Lungs CTA. Skin warm/dry to touch. Resp easy/reg.
== END 2018-11-18 15:10 | disposition home or self-care (01) ==
PROVIDERS: PCP Family Medicine; Visit Provider Internal Medicine Hematology & Oncology
DX: C92.00 Acute myeloblastic leukemia, not having achieved remission (principal)
CPT/HCPCS: 36430; 85014; 85018; 85049; J1642; P9016; P9034

== ENCOUNTER 2018-11-21 08:05 | Outpatient (CLI) | payer MEDICARE, OTHER, SELFPAY ==
[2018-11-21 08:13] VITALS: BMI 27.8
[2018-11-21 08:23] LABS: Basophils % 0.3 % (0.1-2.0); Eosinophils % 0.5 % (0.1-12.0); Hematocrit 26.8 % (42.0-52.0); Lymphocytes # 0.9 K/mm3 (0.7-4.5); Lymphocytes % 82.2 % (10-50); Mean Corpuscular HGB Conc 33.4 g/dL (31.8-35.4); Mean Corpuscular Hemoglobin 32.4 pg (27.0-31.2); Mean Platelet Volume 8.9 fl (7.4-10.4); Monocytes % 2.1 % (1.7-9.3); Neutrophils # 0.2 K/mm3 (1.8-7.8); Red Blood Count 2.77 M/mm3 (4.60-6.20); Red Cell Distribution Width 24.9 % (11.5-17.5); White Blood Count 1.1 K/mm3 (4.8-10.8)
[2018-11-21 08:26] LABS: Neutrophils % 14.9 % (37.0-80.0)
[2018-11-21 08:28] LABS: Platelet Count 36 K/mm3 (142-424)
[2018-11-21 08:30] LABS: MANUAL DIFFERENTIAL MANUAL DIFFERENTIAL (MANUAL DIFF)
[2018-11-21 08:37] LABS: Alanine Aminotransferase 38 U/L (12-78); Albumin Level 3.1 gm/dL (3.4-5.0); Albumin/Globulin Ratio 0.8 (1.1-1.8); Alkaline Phosphatase 51 U/L (46-116); Aspartate Amino Transferase 30 U/L (15-37); Bilirubin,Total 0.5 mg/dL (0.2-1.0); Blood Urea Nitrogen 18 mg/dL (7-18); Calcium 9.3 mg/dL (8.5-10.1); Carbon Dioxide 26 mmol/L (21.0-32.0); Chloride 106 mmol/L (98-107); Creatinine Clearance Estimated 81 mL/min (50-200); Estimated Glomerular Filt Rate 94 ml/min (>60); GFR (African American) 114 ML/MIN (>60); Globulin 3.7 gm/dl (1.3-3.2); Glucose 145 mg/dL (74-106); Sodium 140 mmol/L (136-145); Total Protein,Serum 6.8 gm/dL (6.4-8.2)
[2018-11-21 08:53] LABS: Lymphocytes % 76 % (10-50); Monocytes % 4 % (2-9); Neutrophils % 20 % (42-76); Platelet Estimate Marked Decrease; RBC Morphology Normal; Total Cells Counted 25
== END 2018-11-21 09:00 | disposition home or self-care (01) ==
LOC: INF 08:12
PROVIDERS: Visit Provider Internal Medicine Hematology & Oncology
DX: C92.00 Acute myeloblastic leukemia, not having achieved remission (principal)
CPT/HCPCS: 80053; 85007; 85025; J1642

== ENCOUNTER 2018-11-24 08:13 | Outpatient (CLI) | payer MEDICARE, OTHER, SELFPAY ==
[2018-11-24 08:15] VITALS: BMI 27.0
[2018-11-24 08:30] LABS: Basophils % 0.4 % (0.1-2.0); Eosinophils % 0.4 % (0.1-12.0); Hematocrit 25.5 % (42.0-52.0); Hemoglobin 9.3 g/dL (14.1-18.0); Lymphocytes # 0.7 K/mm3 (0.7-4.5); Lymphocytes % 81.3 % (10-50); Mean Corpuscular HGB Conc 36.3 g/dL (31.8-35.4); Mean Corpuscular Hemoglobin 34.9 pg (27.0-31.2); Mean Corpuscular Volume 96.2 fl (80-94); Mean Platelet Volume 7.1 fl (7.4-10.4); Monocytes % 1.8 % (1.7-9.3); Neutrophils # 0.1 K/mm3 (1.8-7.8); Neutrophils % 16.1 % (37.0-80.0); Red Blood Count 2.65 M/mm3 (4.60-6.20); Red Cell Distribution Width 24.8 % (11.5-17.5)
[2018-11-24 08:40] LABS: Alanine Aminotransferase 40 U/L (12-78); Albumin Level 3.2 gm/dL (3.4-5.0); Albumin/Globulin Ratio 0.9 (1.1-1.8); Alkaline Phosphatase 51 U/L (46-116); Anion Gap 11.8 mEq/L (5-15); Aspartate Amino Transferase 30 U/L (15-37); Bilirubin,Total 0.5 mg/dL (0.2-1.0); Blood Urea Nitrogen 14 mg/dL (7-18); Calcium 9.4 mg/dL (8.5-10.1); Carbon Dioxide 28 mmol/L (21.0-32.0); Chloride 104 mmol/L (98-107); Creatinine Clearance Estimated 81 mL/min (50-200); Creatinine,Serum 0.82 mg/dL (0.70-1.30); Estimated Glomerular Filt Rate 92 ml/min (>60); GFR (African American) 111 ML/MIN (>60); Globulin 3.6 gm/dl (1.3-3.2); Glucose 121 mg/dL (74-106); Potassium 3.8 mmoL/L (3.5-5.1); Sodium 140 mmol/L (136-145); Total Protein,Serum 6.8 gm/dL (6.4-8.2)
[2018-11-24 08:43] LABS: Platelet Count 24 K/mm3 (142-424); White Blood Count 0.8 K/mm3 (4.8-10.8)
[2018-11-24 08:44] LABS: MANUAL DIFFERENTIAL MANUAL DIFFERENTIAL (MANUAL DIFF)
[2018-11-24 08:47] LABS: Anisocytosis 2+; Lymphocytes % 72 % (10-50); Neutrophils % 16 % (42-76); Platelet Estimate Marked Decrease; Total Cells Counted 25
== END 2018-11-24 09:05 | disposition home or self-care (01) ==
LOC: INF 08:13
PROVIDERS: Visit Provider Internal Medicine Hematology & Oncology
DX: C92.00 Acute myeloblastic leukemia, not having achieved remission (principal)
CPT/HCPCS: 80053; 85007; 85025; J1642

== ENCOUNTER 2018-11-26 08:22 | Outpatient (CLI) | payer MEDICARE, OTHER, SELFPAY ==
[2018-11-26 08:23] VITALS: BMI 27.8
[2018-11-26 08:46] LABS: Basophils % 0.1 % (0.1-2.0); Hematocrit 24.4 % (42.0-52.0); Hemoglobin 8.3 g/dL (14.1-18.0); Lymphocytes # 0.8 K/mm3 (0.7-4.5); Lymphocytes % 79.5 % (10-50); Mean Corpuscular Hemoglobin 32.9 pg (27.0-31.2); Mean Corpuscular Volume 96.7 fl (80-94); Mean Platelet Volume 9.4 fl (7.4-10.4); Monocytes % 3.9 % (1.7-9.3); Neutrophils # 0.2 K/mm3 (1.8-7.8); Neutrophils % 15.5 % (37.0-80.0); Red Blood Count 2.53 M/mm3 (4.60-6.20); Red Cell Distribution Width 24.5 % (11.5-17.5)
[2018-11-26 08:48] LABS: Platelet Count 29 K/mm3 (142-424)
[2018-11-26 08:50] LABS: MANUAL DIFFERENTIAL MANUAL DIFFERENTIAL (MANUAL DIFF)
[2018-11-26 08:51] LABS: Lymphocytes % 78 % (10-50); Monocytes % 2 % (2-9); Neutrophils % 14 % (42-76); Total Cells Counted 50
[2018-11-26 08:52] LABS: Platelet Estimate Marked Decrease
== END 2018-11-26 09:05 | disposition home or self-care (01) ==
LOC: INF 08:22
PROVIDERS: Visit Provider Internal Medicine Hematology & Oncology
DX: Z45.2 Encounter for adjustment and management of vascular access device (principal); C92.00 Acute myeloblastic leukemia, not having achieved remission
CPT/HCPCS: 85007; 85025; J1642

== ENCOUNTER → 2018-11-28 08:17 | Outpatient (CLI) | payer MEDICARE, OTHER, SELFPAY ==
[2018-11-28 08:10] VITALS: BP 122/78; PULSE 72; RESP 20; TEMP 36.9; O2SAT 95
[2018-11-28 08:17] VITALS: BMI 27.9
[2018-11-28 08:33] LABS: Basophils % 0.5 % (0.1-2.0); Eosinophils % 0.6 % (0.1-12.0); Hematocrit 24.5 % (42.0-52.0); Hemoglobin 8.3 g/dL (14.1-18.0); Lymphocytes # 0.8 K/mm3 (0.7-4.5); Lymphocytes % 79.7 % (10-50); Mean Corpuscular HGB Conc 33.7 g/dL (31.8-35.4); Mean Corpuscular Hemoglobin 32.7 pg (27.0-31.2); Mean Corpuscular Volume 96.9 fl (80-94); Mean Platelet Volume 13.4 fl (7.4-10.4); Monocytes % 2.8 % (1.7-9.3); Neutrophils # 0.2 K/mm3 (1.8-7.8); Neutrophils % 16.5 % (37.0-80.0); Red Blood Count 2.53 M/mm3 (4.60-6.20); Red Cell Distribution Width 23.9 % (11.5-17.5)
[2018-11-28 08:39] LABS: Platelet Count 26 K/mm3 (142-424)
[2018-11-28 08:40] LABS: MANUAL DIFFERENTIAL MANUAL DIFFERENTIAL (MANUAL DIFF)
[2018-11-28 08:42] LABS: Alanine Aminotransferase 45 U/L (12-78); Albumin/Globulin Ratio 0.8 (1.1-1.8); Alkaline Phosphatase 51 U/L (46-116); Anion Gap 12.8 mEq/L (5-15); Aspartate Amino Transferase 30 U/L (15-37); Bilirubin,Total 0.4 mg/dL (0.2-1.0); Blood Urea Nitrogen 12 mg/dL (7-18); Calcium 9.1 mg/dL (8.5-10.1); Carbon Dioxide 28 mmol/L (21.0-32.0); Chloride 105 mmol/L (98-107); Creatinine Clearance Estimated 81 mL/min (50-200); Creatinine,Serum 0.81 mg/dL (0.70-1.30); Estimated Glomerular Filt Rate 93 ml/min (>60); GFR (African American) 113 ML/MIN (>60); Globulin 3.6 gm/dl (1.3-3.2); Glucose 142 mg/dL (74-106); Potassium 3.8 mmoL/L (3.5-5.1); Sodium 142 mmol/L (136-145); Total Protein,Serum 6.6 gm/dL (6.4-8.2)
[2018-11-28 09:11] LABS: Anisocytosis 2+; Hypochromasia 2+; Lymphocytes % 72 % (10-50); Monocytes % 4 % (2-9); Neutrophils % 16 % (42-76); Platelet Estimate Marked Decrease; Total Cells Counted 25
[2018-11-28 09:12] LABS: Microcytosis 1+; Tear Drop Cells 1+
== END ==
PROVIDERS: Visit Provider Internal Medicine Hematology & Oncology
DX: C92.00 Acute myeloblastic leukemia, not having achieved remission (principal); Z45.2 Encounter for adjustment and management of vascular access device
CPT/HCPCS: 80053; 85007; 85025; J1642

== ENCOUNTER 2018-12-01 08:18 | Outpatient (CLI) | payer MEDICARE, OTHER, SELFPAY ==
[2018-12-01 08:18] VITALS: BMI 27.9
[2018-12-01 08:42] LABS: Eosinophils % 0.4 % (0.1-12.0); Lymphocytes # 0.8 K/mm3 (0.7-4.5); Lymphocytes % 75.5 % (10-50); Mean Corpuscular HGB Conc 33.1 g/dL (31.8-35.4); Mean Corpuscular Hemoglobin 32.5 pg (27.0-31.2); Mean Corpuscular Volume 98.2 fl (80-94); Mean Platelet Volume 10.4 fl (7.4-10.4); Monocytes % 3.6 % (1.7-9.3); Neutrophils # 0.2 K/mm3 (1.8-7.8); Neutrophils % 20.4 % (37.0-80.0); Red Blood Count 2.35 M/mm3 (4.60-6.20); White Blood Count 1.1 K/mm3 (4.8-10.8)
[2018-12-01 09:03] LABS: Hematocrit 23.1 % (42.0-52.0); Hemoglobin 7.7 g/dL (14.1-18.0); Platelet Count 29 K/mm3 (142-424)
[2018-12-01 09:04] LABS: Alanine Aminotransferase 42 U/L (12-78); Albumin/Globulin Ratio 0.9 (1.1-1.8); Alkaline Phosphatase 49 U/L (46-116); Anion Gap 13.9 mEq/L (5-15); Aspartate Amino Transferase 30 U/L (15-37); Bilirubin,Total 0.4 mg/dL (0.2-1.0); Blood Urea Nitrogen 16 mg/dL (7-18); Carbon Dioxide 25 mmol/L (21.0-32.0); Chloride 105 mmol/L (98-107); Creatinine Clearance Estimated 81 mL/min (50-200); Creatinine,Serum 0.77 mg/dL (0.70-1.30); Estimated Glomerular Filt Rate 99 ml/min (>60); GFR (African American) 119 ML/MIN (>60); Globulin 3.5 gm/dl (1.3-3.2); Glucose 142 mg/dL (74-106); MANUAL DIFFERENTIAL MANUAL DIFFERENTIAL (MANUAL DIFF); Potassium 3.9 mmoL/L (3.5-5.1); Sodium 140 mmol/L (136-145); Total Protein,Serum 6.5 gm/dL (6.4-8.2)
[2018-12-01 09:15] LABS: Lymphocytes % 72 % (10-50); Monocytes % 2 % (2-9); Neutrophils % 20 % (42-76); Platelet Estimate Marked Decrease; Total Cells Counted 50
== END 2018-12-01 09:25 | disposition home or self-care (01) ==
LOC: INF 08:18
PROVIDERS: Visit Provider Internal Medicine Hematology & Oncology
DX: C92.00 Acute myeloblastic leukemia, not having achieved remission (principal)
CPT/HCPCS: 80053; 85007; 85025; J1642

== ENCOUNTER 2018-12-03 08:19 | Outpatient (CLI) | payer MEDICARE, OTHER, SELFPAY ==
[2018-12-03 08:20] VITALS: BMI 27.8
[2018-12-03 08:34] LABS: Lymphocytes # 0.9 K/mm3 (0.7-4.5); Lymphocytes % 70.9 % (10-50); Mean Corpuscular HGB Conc 34.2 g/dL (31.8-35.4); Mean Corpuscular Hemoglobin 33.3 pg (27.0-31.2); Mean Corpuscular Volume 97.4 fl (80-94); Mean Platelet Volume 7.1 fl (7.4-10.4); Monocytes # 0.1 K/mm3 (0.1-1.0); Monocytes % 6.9 % (1.7-9.3); Neutrophils # 0.3 K/mm3 (1.8-7.8); Neutrophils % 22.2 % (37.0-80.0); Red Blood Count 2.29 M/mm3 (4.60-6.20); White Blood Count 1.3 K/mm3 (4.8-10.8)
[2018-12-03 08:42] LABS: Hematocrit 22.3 % (42.0-52.0); Hemoglobin 7.6 g/dL (14.1-18.0); Red Cell Distribution Width 25.1 % (11.5-17.5)
[2018-12-03 08:43] LABS: Platelet Count 27 K/mm3 (142-424)
[2018-12-03 08:45] LABS: MANUAL DIFFERENTIAL MANUAL DIFFERENTIAL (MANUAL DIFF)
[2018-12-03 09:00] LABS: Lymphocytes % 66 % (10-50); Monocytes % 8 % (2-9); Neutrophils % 20 % (42-76); Platelet Estimate Marked Decrease; Total Cells Counted 50
== END 2018-12-03 09:00 | disposition home or self-care (01) ==
LOC: INF 08:19
PROVIDERS: Visit Provider Internal Medicine Hematology & Oncology
DX: C92.00 Acute myeloblastic leukemia, not having achieved remission (principal); Z45.2 Encounter for adjustment and management of vascular access device
CPT/HCPCS: 85007; 85025; J1642

== ENCOUNTER 2018-12-05 08:00 | Outpatient (CLI) | payer MEDICARE, OTHER, SELFPAY ==
[2018-12-05 08:10] VITALS: BMI 27.9
[2018-12-05 08:29] LABS: Eosinophils % 0.3 % (0.1-12.0); Lymphocytes # 0.9 K/mm3 (0.7-4.5); Lymphocytes % 64.1 % (10-50); Mean Corpuscular HGB Conc 33.5 g/dL (31.8-35.4); Mean Corpuscular Hemoglobin 33.1 pg (27.0-31.2); Mean Corpuscular Volume 98.8 fl (80-94); Mean Platelet Volume 8.4 fl (7.4-10.4); Monocytes # 0.1 K/mm3 (0.1-1.0); Monocytes % 6.7 % (1.7-9.3); Neutrophils # 0.4 K/mm3 (1.8-7.8); Neutrophils % 28.9 % (37.0-80.0); Red Blood Count 2.32 M/mm3 (4.60-6.20); White Blood Count 1.4 K/mm3 (4.8-10.8)
[2018-12-05 08:33] LABS: Red Cell Distribution Width 25.3 % (11.5-17.5)
[2018-12-05 08:34] LABS: Hematocrit 22.9 % (42.0-52.0); Hemoglobin 7.7 g/dL (14.1-18.0)
[2018-12-05 08:35] LABS: Platelet Count 22 K/mm3 (142-424)
[2018-12-05 08:37] LABS: MANUAL DIFFERENTIAL MANUAL DIFFERENTIAL (MANUAL DIFF)
[2018-12-05 08:45] LABS: Alanine Aminotransferase 41 U/L (12-78); Albumin Level 3.2 gm/dL (3.4-5.0); Albumin/Globulin Ratio 0.9 (1.1-1.8); Alkaline Phosphatase 47 U/L (46-116); Anion Gap 11.9 mEq/L (5-15); Aspartate Amino Transferase 34 U/L (15-37); Bilirubin,Total 0.4 mg/dL (0.2-1.0); Blood Urea Nitrogen 13 mg/dL (7-18); Calcium 9.3 mg/dL (8.5-10.1); Carbon Dioxide 27 mmol/L (21.0-32.0); Chloride 105 mmol/L (98-107); Creatinine Clearance Estimated 81 mL/min (50-200); Creatinine,Serum 0.83 mg/dL (0.70-1.30); Estimated Glomerular Filt Rate 91 ml/min (>60); GFR (African American) 110 ML/MIN (>60); Globulin 3.5 gm/dl (1.3-3.2); Glucose 129 mg/dL (74-106); Potassium 3.9 mmoL/L (3.5-5.1); Sodium 140 mmol/L (136-145); Total Protein,Serum 6.7 gm/dL (6.4-8.2)
[2018-12-05 08:52] LABS: Hypochromasia 1+; Lymphocytes % 64 % (10-50); Monocytes % 4 % (2-9); Neutrophils % 20 % (42-76); Platelet Estimate Marked Decrease; Total Cells Counted 25
[2018-12-05 08:55] LABS: Anisocytosis 1+; Macrocytosis 2+
== END 2018-12-05 08:42 | disposition home or self-care (01) ==
LOC: INF 08:08
PROVIDERS: Visit Provider Internal Medicine Hematology & Oncology
DX: C92.00 Acute myeloblastic leukemia, not having achieved remission (principal)
CPT/HCPCS: 80053; 85007; 85025; J1642

== ENCOUNTER 2018-12-08 08:15 | Outpatient (CLI) | payer MEDICARE, OTHER, SELFPAY ==
[2018-12-08 08:19] VITALS: BMI 28.8
[2018-12-08 08:47] LABS: Basophils % 0.3 % (0.1-2.0); Hematocrit 24.8 % (42.0-52.0); Lymphocytes # 1.1 K/mm3 (0.7-4.5); Mean Corpuscular Hemoglobin 32.4 pg (27.0-31.2); Mean Corpuscular Volume 101.4 fl (80-94); Mean Platelet Volume 9.1 fl (7.4-10.4); Monocytes # 0.1 K/mm3 (0.1-1.0); Neutrophils # 0.5 K/mm3 (1.8-7.8); Neutrophils % 30.6 % (37.0-80.0); Red Blood Count 2.44 M/mm3 (4.60-6.20); White Blood Count 1.7 K/mm3 (4.8-10.8)
[2018-12-08 08:53] LABS: Red Cell Distribution Width 25.1 % (11.5-17.5)
[2018-12-08 08:54] LABS: Hemoglobin 7.9 g/dL (14.1-18.0); Platelet Count 23 K/mm3 (142-424)
[2018-12-08 08:55] LABS: MANUAL DIFFERENTIAL MANUAL DIFFERENTIAL (MANUAL DIFF)
[2018-12-08 08:59] LABS: Alanine Aminotransferase 40 U/L (12-78); Albumin Level 3.2 gm/dL (3.4-5.0); Albumin/Globulin Ratio 0.9 (1.1-1.8); Alkaline Phosphatase 47 U/L (46-116); Anion Gap 12.9 mEq/L (5-15); Aspartate Amino Transferase 36 U/L (15-37); Bilirubin,Total 0.4 mg/dL (0.2-1.0); Blood Urea Nitrogen 13 mg/dL (7-18); Calcium 9.3 mg/dL (8.5-10.1); Carbon Dioxide 27 mmol/L (21.0-32.0); Chloride 106 mmol/L (98-107); Creatinine Clearance Estimated 81 mL/min (50-200); Creatinine,Serum 0.78 mg/dL (0.70-1.30); Estimated Glomerular Filt Rate 97 ml/min (>60); GFR (African American) 118 ML/MIN (>60); Globulin 3.6 gm/dl (1.3-3.2); Glucose 155 mg/dL (74-106); Potassium 3.9 mmoL/L (3.5-5.1); Sodium 142 mmol/L (136-145); Total Protein,Serum 6.8 gm/dL (6.4-8.2)
[2018-12-08 09:05] LABS: Lymphocytes % 48 % (10-50); Macrocytosis 1+; Monocytes % 12 % (2-9); Neutrophils % 36 % (42-76); Platelet Estimate Moderate Decrease; Total Cells Counted 25
[2018-12-08 10:20] VITALS: BP 122/56; PULSE 68; RESP 20; TEMP 36.9; O2SAT 98
[2018-12-08 10:50] VITALS: BP 128/74; PULSE 68; RESP 20; TEMP 36.9; O2SAT 98
== END 2018-12-08 10:55 | disposition home or self-care (01) ==
LOC: INF 08:15
PROVIDERS: Visit Provider Internal Medicine Medical Oncology
DX: Z51.11 Encounter for antineoplastic chemotherapy (principal); C92.00 Acute myeloblastic leukemia, not having achieved remission
CPT/HCPCS: 80053; 85007; 85025; 96413; J9025

== ENCOUNTER 2018-12-09 08:22 | Outpatient (CLI) | payer MEDICARE, OTHER, SELFPAY ==
[2018-12-09 08:57] VITALS: BP 116/65; PULSE 62; RESP 18; TEMP 36.5; O2SAT 98
[2018-12-09 09:27] VITALS: BP 120/62; PULSE 67; RESP 18; O2SAT 97
[2018-12-09 09:45] VITALS: BP 124/65; PULSE 65; RESP 18; O2SAT 98
== END 2018-12-09 09:45 | disposition home or self-care (01) ==
LOC: INF 08:22
PROVIDERS: Visit Provider Internal Medicine Medical Oncology
DX: Z51.11 Encounter for antineoplastic chemotherapy (principal); C92.00 Acute myeloblastic leukemia, not having achieved remission
CPT/HCPCS: 96413; J9025

== ENCOUNTER 2018-12-10 08:17 | Outpatient (CLI) | payer MEDICARE, OTHER, SELFPAY ==
[2018-12-10] VITALS (10 sets, daily range): BP systolic 118–154; BP diastolic 52–88; PULSE 60–79; RESP 18–20; TEMP 36.6–36.8; O2SAT 98–100; BMI 30.8
[2018-12-10 08:39] LABS: Basophils % 0.1 % (0.1-2.0); Eosinophils % 0.2 % (0.1-12.0); Lymphocytes # 0.9 K/mm3 (0.7-4.5); Lymphocytes % 53.1 % (10-50); Mean Corpuscular Hemoglobin 32.1 pg (27.0-31.2); Mean Corpuscular Volume 103.7 fl (80-94); Mean Platelet Volume 8.9 fl (7.4-10.4); Monocytes # 0.1 K/mm3 (0.1-1.0); Monocytes % 6.7 % (1.7-9.3); Neutrophils # 0.7 K/mm3 (1.8-7.8); Neutrophils % 39.8 % (37.0-80.0); Red Blood Count 2.21 M/mm3 (4.60-6.20); White Blood Count 1.7 K/mm3 (4.8-10.8)
[2018-12-10 08:40] LABS: Red Cell Distribution Width 26.4 % (11.5-17.5)
[2018-12-10 08:41] LABS: Hematocrit 22.9 % (42.0-52.0); Hemoglobin 7.1 g/dL (14.1-18.0); Platelet Count 17 K/mm3 (142-424)
[2018-12-10 08:42] LABS: MANUAL DIFFERENTIAL MANUAL DIFFERENTIAL (MANUAL DIFF)
[2018-12-10 09:24] LABS: Lymphocytes % 46 % (10-50); Monocytes % 8 % (2-9); Neutrophils % 42 % (42-76); Platelet Estimate Moderate Decrease; Total Cells Counted 50
[2018-12-10 09:25] LABS: Macrocytosis 1+
[2018-12-10 14:46] LABS: Platelet Count 68 K/mm3 (142-424)
== END 2018-12-10 14:38 | disposition home or self-care (01) ==
LOC: INF 08:17
PROVIDERS: Internal Medicine Hematology & Oncology; Visit Provider Internal Medicine Medical Oncology
DX: Z51.11 Encounter for antineoplastic chemotherapy (principal); C92.00 Acute myeloblastic leukemia, not having achieved remission
CPT/HCPCS: 36430; 85007; 85025; 85049; 86850; 86900; 86901; 96413; J1642; J9025; P9034

== ENCOUNTER 2018-12-11 08:11 | Outpatient (CLI) | payer MEDICARE, OTHER, SELFPAY ==
[2018-12-11 09:10] VITALS: BP 124/66; PULSE 58; RESP 18; TEMP 36.3; O2SAT 98
[2018-12-11 09:25] VITALS: BP 137/67; PULSE 55; RESP 18
[2018-12-11 09:40] VITALS: BP 132/68; PULSE 57; RESP 18
== END 2018-12-11 10:00 | disposition home or self-care (01) ==
LOC: INF 08:11
PROVIDERS: Visit Provider Internal Medicine Medical Oncology
DX: Z51.11 Encounter for antineoplastic chemotherapy (principal); C92.00 Acute myeloblastic leukemia, not having achieved remission
CPT/HCPCS: 96413; J9025

== ENCOUNTER 2018-12-12 08:09 | Outpatient (CLI) | payer MEDICARE, OTHER, SELFPAY ==
[2018-12-12] VITALS (21 sets, daily range): BP systolic 123–161; BP diastolic 63–92; PULSE 50–66; RESP 18–20; TEMP 36.1–36.8; O2SAT 98–100
[2018-12-12 08:33] LABS: Basophils % 0.1 % (0.1-2.0); Eosinophils % 0.2 % (0.1-12.0); Lymphocytes % 56.5 % (10-50); Mean Corpuscular Hemoglobin 31.8 pg (27.0-31.2); Mean Corpuscular Volume 102.7 fl (80-94); Mean Platelet Volume 9.5 fl (7.4-10.4); Monocytes # 0.1 K/mm3 (0.1-1.0); Monocytes % 5.3 % (1.7-9.3); Neutrophils # 0.7 K/mm3 (1.8-7.8); Neutrophils % 37.9 % (37.0-80.0); Platelet Count 60 K/mm3 (142-424); Red Blood Count 2.16 M/mm3 (4.60-6.20); White Blood Count 1.7 K/mm3 (4.8-10.8)
[2018-12-12 08:57] LABS: Alanine Aminotransferase 43 U/L (12-78); Albumin Level 3.1 gm/dL (3.4-5.0); Albumin/Globulin Ratio 0.9 (1.1-1.8); Alkaline Phosphatase 48 U/L (46-116); Anion Gap 13.6 mEq/L (5-15); Aspartate Amino Transferase 31 U/L (15-37); Bilirubin,Total 0.4 mg/dL (0.2-1.0); Blood Urea Nitrogen 16 mg/dL (7-18); Calcium 9.1 mg/dL (8.5-10.1); Carbon Dioxide 25 mmol/L (21.0-32.0); Chloride 106 mmol/L (98-107); Creatinine Clearance Estimated 2 mL/min (50-200); Creatinine,Serum 0.96 mg/dL (0.70-1.30); Estimated Glomerular Filt Rate 77 ml/min (>60); GFR (African American) 93 ML/MIN (>60); Globulin 3.5 gm/dl (1.3-3.2); Glucose 150 mg/dL (74-106); Potassium 3.6 mmoL/L (3.5-5.1); Sodium 141 mmol/L (136-145); Total Protein,Serum 6.6 gm/dL (6.4-8.2)
[2018-12-12 09:14] LABS: Red Cell Distribution Width 26.6 % (11.5-17.5)
[2018-12-12 09:15] LABS: Hematocrit 22.2 % (42.0-52.0); Hemoglobin 6.9 g/dL (14.1-18.0)
[2018-12-12 09:16] LABS: MANUAL DIFFERENTIAL MANUAL DIFFERENTIAL (MANUAL DIFF)
[2018-12-12 09:25] LABS: Lymphocytes % 52 % (10-50); Monocytes % 6 % (2-9); Neutrophils % 36 % (42-76); Total Cells Counted 50
[2018-12-12 09:27] LABS: Platelet Estimate Moderate Decrease
[2018-12-12 09:28] LABS: Anisocytosis 1+; Macrocytosis 1+
[2018-12-12 09:33] LABS: Tear Drop Cells 1+
--- NOTE | 2018-12-12 11:10 | PC.NURSE ---
1105 - TRANSFUSION STARTED AT 100 ML/HR AT THIS TIME.
--- NOTE | 2018-12-12 12:13 | PC.NURSE ---
1135 - INCREASED RATE TO 150 ML/HR AT THIS TIME.
--- NOTE | 2018-12-12 12:20 | PC.NURSE ---
1205 - INCREASED RATE TO 200 ML/HR AT THIS TIME.
--- NOTE | 2018-12-12 13:07 | PC.NURSE ---
RATE WAS INCREASED TO 250 ML/HR AT 1235.
--- NOTE | 2018-12-12 13:38 | PC.NURSE ---
1330 - TRANSFUSION STARTED AT 100 ML/HR AT THIS TIME.
--- NOTE | 2018-12-12 14:13 | PC.NURSE ---
1400 - INCREASED RATE TO 150 ML/HR AT THIS TIME.
--- NOTE | 2018-12-12 14:57 | PC.NURSE ---
1430 - INCREASED RATE TO 200 ML/HR AT THIS TIME.
--- NOTE | 2018-12-12 15:26 | PC.NURSE ---
RATE WAS INCREASED TO 250 ML/HR AT 1500.
[2018-12-12 16:36] LABS: Hematocrit 27.3 % (42.0-52.0)
[2018-12-12 16:42] LABS: Hemoglobin 8.7 g/dL (14.1-18.0)
== END 2018-12-12 16:30 | disposition home or self-care (01) ==
LOC: INF 08:09
PROVIDERS: Internal Medicine Hematology & Oncology; Visit Provider Internal Medicine Medical Oncology
DX: Z51.11 Encounter for antineoplastic chemotherapy (principal); C92.00 Acute myeloblastic leukemia, not having achieved remission
CPT/HCPCS: 36430; 80053; 85007; 85014; 85018; 85025; 96413; J9025; P9016

== ENCOUNTER 2018-12-15 08:12 | Outpatient (CLI) | payer MEDICARE, OTHER, SELFPAY ==
[2018-12-15 08:14] VITALS: BMI 27.9
[2018-12-15 08:34] LABS: Basophils % 0.1 % (0.1-2.0); Eosinophils % 0.1 % (0.1-12.0); Hematocrit 28.6 % (42.0-52.0); Hemoglobin 9.3 g/dL (14.1-18.0); Lymphocytes # 1.2 K/mm3 (0.7-4.5); Lymphocytes % 56.4 % (10-50); Mean Corpuscular HGB Conc 32.5 g/dL (31.8-35.4); Mean Corpuscular Hemoglobin 32.1 pg (27.0-31.2); Mean Corpuscular Volume 98.7 fl (80-94); Mean Platelet Volume 9.7 fl (7.4-10.4); Monocytes # 0.1 K/mm3 (0.1-1.0); Monocytes % 5.7 % (1.7-9.3); Neutrophils # 0.8 K/mm3 (1.8-7.8); Neutrophils % 37.7 % (37.0-80.0); Red Cell Distribution Width 24.9 % (11.5-17.5); White Blood Count 2.1 K/mm3 (4.8-10.8)
[2018-12-15 08:52] LABS: Platelet Count 36 K/mm3 (142-424)
[2018-12-15 08:53] LABS: MANUAL DIFFERENTIAL MANUAL DIFFERENTIAL (MANUAL DIFF)
[2018-12-15 08:59] LABS: Alanine Aminotransferase 46 U/L (12-78); Albumin Level 3.1 gm/dL (3.4-5.0); Albumin/Globulin Ratio 0.9 (1.1-1.8); Alkaline Phosphatase 50 U/L (46-116); Anion Gap 9.7 mEq/L (5-15); Aspartate Amino Transferase 37 U/L (15-37); Bilirubin,Total 0.4 mg/dL (0.2-1.0); Blood Urea Nitrogen 20 mg/dL (7-18); Carbon Dioxide 25 mmol/L (21.0-32.0); Chloride 106 mmol/L (98-107); Creatinine Clearance Estimated 81 mL/min (50-200); Estimated Glomerular Filt Rate 82 ml/min (>60); GFR (African American) 100 ML/MIN (>60); Globulin 3.5 gm/dl (1.3-3.2); Glucose 128 mg/dL (74-106); Potassium 3.7 mmoL/L (3.5-5.1); Sodium 137 mmol/L (136-145); Total Protein,Serum 6.6 gm/dL (6.4-8.2)
[2018-12-15 09:25] LABS: Lymphocytes % 52 % (10-50); Monocytes % 4 % (2-9); Neutrophils % 36 % (42-76); Total Cells Counted 25
[2018-12-15 09:29] LABS: Platelet Estimate Marked Decrease
[2018-12-15 09:32] LABS: Anisocytosis 1+
[2018-12-15 09:36] LABS: Microcytosis 1+
== END 2018-12-15 09:14 | disposition home or self-care (01) ==
LOC: INF 08:12
PROVIDERS: Visit Provider Internal Medicine Hematology & Oncology
DX: C92.00 Acute myeloblastic leukemia, not having achieved remission (principal)
CPT/HCPCS: 80053; 85007; 85025; J1642

== ENCOUNTER 2018-12-17 08:31 | Outpatient (CLI) | payer MEDICARE, OTHER, SELFPAY ==
[2018-12-17] VITALS (7 sets, daily range): BP systolic 119–137; BP diastolic 64–75; PULSE 58–61; RESP 18; TEMP 36.6–36.8; O2SAT 99; BMI 27.9
[2018-12-17 08:47] LABS: Basophils % 0.1 % (0.1-2.0); Eosinophils % 0.1 % (0.1-12.0); Hematocrit 26.9 % (42.0-52.0); Hemoglobin 8.6 g/dL (14.1-18.0); Lymphocytes # 0.9 K/mm3 (0.7-4.5); Lymphocytes % 52.8 % (10-50); Mean Corpuscular HGB Conc 31.9 g/dL (31.8-35.4); Mean Corpuscular Hemoglobin 31.3 pg (27.0-31.2); Mean Corpuscular Volume 98.3 fl (80-94); Monocytes # 0.1 K/mm3 (0.1-1.0); Monocytes % 4.9 % (1.7-9.3); Neutrophils # 0.7 K/mm3 (1.8-7.8); Red Blood Count 2.73 M/mm3 (4.60-6.20); Red Cell Distribution Width 24.7 % (11.5-17.5); White Blood Count 1.7 K/mm3 (4.8-10.8)
[2018-12-17 08:50] LABS: Platelet Count 18 K/mm3 (142-424)
[2018-12-17 08:51] LABS: MANUAL DIFFERENTIAL MANUAL DIFFERENTIAL (MANUAL DIFF)
[2018-12-17 09:24] LABS: Lymphocytes % 52 % (10-50); Monocytes % 4 % (2-9); Neutrophils % 44 % (42-76); Total Cells Counted 25
[2018-12-17 09:26] LABS: Anisocytosis 1+; Macrocytosis 1+
[2018-12-17 09:27] LABS: Platelet Estimate Marked Decrease
[2018-12-17 15:47] LABS: Platelet Count 58 K/mm3 (142-424)
== END 2018-12-17 15:45 | disposition home or self-care (01) ==
LOC: INF 08:31
PROVIDERS: Visit Provider Internal Medicine Hematology & Oncology
DX: C92.00 Acute myeloblastic leukemia, not having achieved remission (principal); Z45.2 Encounter for adjustment and management of vascular access device
CPT/HCPCS: 36430; 85007; 85025; 85049; 86900; 86901; J1642; P9034

== ENCOUNTER 2018-12-19 08:00 | Outpatient (CLI) | payer MEDICARE, OTHER, SELFPAY ==
[2018-12-19 08:12] VITALS: BMI 28.0
[2018-12-19 08:34] LABS: Basophils % 0.1 % (0.1-2.0); Eosinophils % 0.1 % (0.1-12.0); Hematocrit 25.9 % (42.0-52.0); Hemoglobin 8.6 g/dL (14.1-18.0); Lymphocytes # 0.9 K/mm3 (0.7-4.5); Lymphocytes % 51.8 % (10-50); Mean Corpuscular HGB Conc 33.4 g/dL (31.8-35.4); Mean Corpuscular Hemoglobin 32.7 pg (27.0-31.2); Mean Platelet Volume 9.5 fl (7.4-10.4); Monocytes # 0.1 K/mm3 (0.1-1.0); Monocytes % 5.9 % (1.7-9.3); Neutrophils # 0.8 K/mm3 (1.8-7.8); Neutrophils % 42.1 % (37.0-80.0); Red Blood Count 2.64 M/mm3 (4.60-6.20); Red Cell Distribution Width 23.1 % (11.5-17.5); White Blood Count 1.8 K/mm3 (4.8-10.8)
[2018-12-19 08:46] LABS: MANUAL DIFFERENTIAL MANUAL DIFFERENTIAL (MANUAL DIFF)
[2018-12-19 08:56] LABS: Lymphocytes % 68 % (10-50); Neutrophils % 32 % (42-76); Platelet Estimate Marked Decrease; RBC Morphology Normal; Total Cells Counted 25
[2018-12-19 08:58] LABS: Platelet Count 42 K/mm3 (142-424)
[2018-12-19 08:59] LABS: Alanine Aminotransferase 48 U/L (12-78); Albumin Level 3.2 gm/dL (3.4-5.0); Alkaline Phosphatase 44 U/L (46-116); Aspartate Amino Transferase 32 U/L (15-37); Bilirubin,Total 0.4 mg/dL (0.2-1.0); Blood Urea Nitrogen 17 mg/dL (7-18); Calcium 9.3 mg/dL (8.5-10.1); Carbon Dioxide 28 mmol/L (21.0-32.0); Chloride 106 mmol/L (98-107); Creatinine Clearance Estimated 81 mL/min (50-200); Creatinine,Serum 0.82 mg/dL (0.70-1.30); Estimated Glomerular Filt Rate 92 ml/min (>60); GFR (African American) 111 ML/MIN (>60); Globulin 3.3 gm/dl (1.3-3.2); Glucose 137 mg/dL (74-106); Sodium 141 mmol/L (136-145); Total Protein,Serum 6.5 gm/dL (6.4-8.2)
== END 2018-12-19 09:00 | disposition home or self-care (01) ==
LOC: INF 08:11
PROVIDERS: Visit Provider Internal Medicine Hematology & Oncology
DX: C92.00 Acute myeloblastic leukemia, not having achieved remission (principal)
CPT/HCPCS: 80053; 85007; 85025; J1642

== ENCOUNTER 2018-12-22 08:15 | Outpatient (CLI) | payer MEDICARE, OTHER, SELFPAY ==
[2018-12-22 08:15] VITALS: BMI 28.0
[2018-12-22 08:47] LABS: Eosinophils % 0.1 % (0.1-12.0); Hemoglobin 8.2 g/dL (14.1-18.0); Lymphocytes % 54.7 % (10-50); Mean Corpuscular HGB Conc 31.5 g/dL (31.8-35.4); Mean Corpuscular Hemoglobin 32.1 pg (27.0-31.2); Mean Platelet Volume 7.6 fl (7.4-10.4); Monocytes # 0.2 K/mm3 (0.1-1.0); Monocytes % 8.7 % (1.7-9.3); Neutrophils # 0.7 K/mm3 (1.8-7.8); Neutrophils % 36.6 % (37.0-80.0); Red Blood Count 2.55 M/mm3 (4.60-6.20); Red Cell Distribution Width 24.9 % (11.5-17.5); White Blood Count 1.8 K/mm3 (4.8-10.8)
[2018-12-22 08:54] LABS: MANUAL DIFFERENTIAL MANUAL DIFFERENTIAL (MANUAL DIFF); Platelet Count 23 K/mm3 (142-424)
[2018-12-22 08:55] LABS: Alanine Aminotransferase 46 U/L (12-78); Albumin Level 3.1 gm/dL (3.4-5.0); Alkaline Phosphatase 47 U/L (46-116); Anion Gap 12.1 mEq/L (5-15); Aspartate Amino Transferase 35 U/L (15-37); Bilirubin,Total 0.3 mg/dL (0.2-1.0); Calcium 8.8 mg/dL (8.5-10.1); Carbon Dioxide 27 mmol/L (21.0-32.0); Chloride 107 mmol/L (98-107); Creatinine Clearance Estimated 81 mL/min (50-200); Creatinine,Serum 0.85 mg/dL (0.70-1.30); Estimated Glomerular Filt Rate 88 ml/min (>60); GFR (African American) 107 ML/MIN (>60); Globulin 3.2 gm/dl (1.3-3.2); Glucose 122 mg/dL (74-106); Potassium 4.1 mmoL/L (3.5-5.1); Sodium 142 mmol/L (136-145); Total Protein,Serum 6.3 gm/dL (6.4-8.2)
[2018-12-22 09:07] LABS: Blood Urea Nitrogen 23 mg/dL (7-18)
[2018-12-22 09:26] VITALS: TEMP 36.3
[2018-12-22 09:26] LABS: Lymphocytes % 60 % (10-50); Monocytes % 4 % (2-9); Neutrophils % 36 % (42-76); Platelet Estimate Marked Decrease; RBC Morphology Normal; Total Cells Counted 25
== END 2018-12-22 09:26 | disposition home or self-care (01) ==
LOC: INF 08:15
PROVIDERS: Visit Provider Internal Medicine Hematology & Oncology
DX: C92.00 Acute myeloblastic leukemia, not having achieved remission (principal); Z45.2 Encounter for adjustment and management of vascular access device
CPT/HCPCS: 80053; 85007; 85025; J1642

== ENCOUNTER 2018-12-24 08:19 | Outpatient (CLI) | payer MEDICARE, OTHER, SELFPAY ==
[2018-12-24] VITALS (8 sets, daily range): BP systolic 114–136; BP diastolic 62–71; PULSE 60–64; RESP 18; TEMP 36.3–36.9; O2SAT 98; BMI 28.0
[2018-12-24 08:49] LABS: Basophils % 0.4 % (0.1-2.0); Eosinophils % 0.2 % (0.1-12.0); Hematocrit 25.3 % (42.0-52.0); Lymphocytes # 0.7 K/mm3 (0.7-4.5); Lymphocytes % 56.5 % (10-50); Mean Corpuscular HGB Conc 31.3 g/dL (31.8-35.4); Mean Corpuscular Volume 102.3 fl (80-94); Mean Platelet Volume 9.2 fl (7.4-10.4); Monocytes # 0.1 K/mm3 (0.1-1.0); Neutrophils # 0.5 K/mm3 (1.8-7.8); Neutrophils % 36.9 % (37.0-80.0); Red Blood Count 2.47 M/mm3 (4.60-6.20); Red Cell Distribution Width 24.9 % (11.5-17.5); White Blood Count 1.3 K/mm3 (4.8-10.8)
[2018-12-24 08:51] LABS: Hemoglobin 7.9 g/dL (14.1-18.0); MANUAL DIFFERENTIAL MANUAL DIFFERENTIAL (MANUAL DIFF); Platelet Count 12 K/mm3 (142-424)
[2018-12-24 09:38] LABS: Hypochromasia 1+; Lymphocytes % 52 % (10-50); Monocytes % 4 % (2-9); Neutrophils % 40 % (42-76); Platelet Estimate Marked Decrease; Total Cells Counted 25
[2018-12-24 14:45] LABS: Platelet Count 66 K/mm3 (142-424)
== END 2018-12-24 14:35 | disposition home or self-care (01) ==
LOC: INF 08:19
PROVIDERS: Visit Provider Internal Medicine Hematology & Oncology
DX: C92.00 Acute myeloblastic leukemia, not having achieved remission (principal)
CPT/HCPCS: 36430; 85007; 85025; 85049; 86900; 86901; J1642; P9034

== ENCOUNTER 2018-12-26 11:35 | Outpatient (CLI) | payer MEDICARE, OTHER, SELFPAY | END 2018-12-26 11:50 | disposition home or self-care (01) | LOC: INF 11:37 | PROVIDERS: Visit Provider Internal Medicine Hematology & Oncology | DX: C92.00 Acute myeloblastic leukemia, not having achieved remission (principal); Z45.2 Encounter for adjustment and management of vascular access device | CPT/HCPCS: 96523; J1642 ==

== ENCOUNTER 2018-12-29 08:17 | Outpatient (CLI) | payer MEDICARE, OTHER, SELFPAY ==
[2018-12-29 08:22] VITALS: BMI 27.9
[2018-12-29 08:47] LABS: Basophils % 0.3 % (0.1-2.0); Eosinophils % 0.1 % (0.1-12.0); Hematocrit 24.4 % (42.0-52.0); Lymphocytes % 69.1 % (10-50); Mean Corpuscular HGB Conc 31.4 g/dL (31.8-35.4); Mean Corpuscular Hemoglobin 32.8 pg (27.0-31.2); Mean Corpuscular Volume 104.5 fl (80-94); Mean Platelet Volume 10.3 fl (7.4-10.4); Monocytes # 0.1 K/mm3 (0.1-1.0); Monocytes % 5.4 % (1.7-9.3); Neutrophils # 0.4 K/mm3 (1.8-7.8); Neutrophils % 25.1 % (37.0-80.0); Red Blood Count 2.33 M/mm3 (4.60-6.20); White Blood Count 1.4 K/mm3 (4.8-10.8)
[2018-12-29 08:49] LABS: Hemoglobin 7.7 g/dL (14.1-18.0); Red Cell Distribution Width 25.4 % (11.5-17.5)
[2018-12-29 08:50] LABS: Platelet Count 33 K/mm3 (142-424)
[2018-12-29 08:51] LABS: MANUAL DIFFERENTIAL MANUAL DIFFERENTIAL (MANUAL DIFF)
[2018-12-29 09:14] LABS: Hypochromasia 1+; Lymphocytes % 72 % (10-50); Neutrophils % 24 % (42-76); Platelet Estimate Marked Decrease; Tear Drop Cells 1+; Total Cells Counted 25
[2018-12-29 09:15] LABS: Anisocytosis 1+; Macrocytosis 1+
[2018-12-29 09:51] LABS: Alanine Aminotransferase 55 U/L (12-78); Albumin Level 2.9 gm/dL (3.4-5.0); Albumin/Globulin Ratio 0.8 (1.1-1.8); Alkaline Phosphatase 51 U/L (46-116); Anion Gap 12.7 mEq/L (5-15); Aspartate Amino Transferase 44 U/L (15-37); Bilirubin,Total 0.4 mg/dL (0.2-1.0); Blood Urea Nitrogen 20 mg/dL (7-18); Calcium 8.6 mg/dL (8.5-10.1); Carbon Dioxide 25 mmol/L (21.0-32.0); Chloride 107 mmol/L (98-107); Creatinine Clearance Estimated 81 mL/min (50-200); Creatinine,Serum 0.89 mg/dL (0.70-1.30); Estimated Glomerular Filt Rate 84 ml/min (>60); GFR (African American) 101 ML/MIN (>60); Globulin 3.6 gm/dl (1.3-3.2); Glucose 141 mg/dL (74-106); Potassium 3.7 mmoL/L (3.5-5.1); Sodium 141 mmol/L (136-145); Total Protein,Serum 6.5 gm/dL (6.4-8.2)
== END 2018-12-29 09:00 | disposition home or self-care (01) ==
LOC: INF 08:17
PROVIDERS: Visit Provider Internal Medicine Hematology & Oncology
DX: C92.00 Acute myeloblastic leukemia, not having achieved remission (principal)
CPT/HCPCS: 80053; 85007; 85025

== ENCOUNTER → 2018-12-29 09:58 | Outpatient (CLI) | payer MEDICARE, OTHER, SELFPAY | PROVIDERS: PCP Family Medicine; Visit Provider Urology | DX: R55 Syncope and collapse (principal) | CPT/HCPCS: 80053; 85007; 85025; 93270 ==

== ENCOUNTER 2018-12-31 08:23 | Outpatient (CLI) | payer MEDICARE, OTHER, SELFPAY ==
[2018-12-31 08:20] VITALS: BP 144/62; PULSE 70; RESP 20; O2SAT 98
[2018-12-31 08:23] VITALS: BMI 28.0
[2018-12-31 08:37] LABS: Basophils % 0.2 % (0.1-2.0); Eosinophils % 0.1 % (0.1-12.0); Lymphocytes % 64.9 % (10-50); Mean Corpuscular Volume 103.2 fl (80-94); Mean Platelet Volume 10.9 fl (7.4-10.4); Monocytes # 0.1 K/mm3 (0.1-1.0); Monocytes % 5.4 % (1.7-9.3); Neutrophils # 0.5 K/mm3 (1.8-7.8); Neutrophils % 29.4 % (37.0-80.0); Red Blood Count 2.24 M/mm3 (4.60-6.20); White Blood Count 1.6 K/mm3 (4.8-10.8)
[2018-12-31 08:52] LABS: Hematocrit 23.1 % (42.0-52.0); Hemoglobin 7.4 g/dL (14.1-18.0); Red Cell Distribution Width 25.6 % (11.5-17.5)
[2018-12-31 08:53] LABS: MANUAL DIFFERENTIAL MANUAL DIFFERENTIAL (MANUAL DIFF); Platelet Count 40 K/mm3 (142-424)
[2018-12-31 09:38] LABS: Anisocytosis 1+; Lymphocytes % 64 % (10-50); Macrocytosis 1+; Monocytes % 4 % (2-9); Neutrophils % 28 % (42-76); Platelet Estimate Marked Decrease; Total Cells Counted 25
[2018-12-31 09:39] LABS: Tear Drop Cells 1+
== END 2018-12-31 08:55 | disposition home or self-care (01) ==
LOC: INF 08:23
PROVIDERS: Visit Provider Internal Medicine Hematology & Oncology
DX: C92.00 Acute myeloblastic leukemia, not having achieved remission (principal); Z45.2 Encounter for adjustment and management of vascular access device
CPT/HCPCS: 85007; 85025; J1642

== ENCOUNTER → 2019-01-02 07:50 | Outpatient (CLI) | payer MEDICARE, OTHER, SELFPAY ==
[2019-01-02] VITALS (20 sets, daily range): BP systolic 112–174; BP diastolic 61–74; PULSE 51–68; RESP 20; TEMP 36.2–37.1; O2SAT 95–98; BMI 27.1
--- NOTE | 2019-01-02 07:51 | CT_ITS ---
PROCEDURE: CT HEAD/BRAIN WO CON CLINICAL INDICATION: syncope 2 weeks ago COMPARISON: No exams were available for comparison TECHNIQUE: Axial images obtained. All CT scans at the facility use one or more dose reduction, viz: automated exposure control, ma/kV adjustment per patient size (including targeted exams where dose is matched to indication, i.e. head), or iterative reconstruction technique. FINDINGS: No midline shift, mass effect, intracranial hemorrhage, hydrocephalus, or extra-axial fluid collection is evident. The sylvian fissures and cortical sulci are mildly prominent. There are mild periventricular hypodensities consistent with chronic ischemic white matter changes. The calvarium has an unremarkable appearance. No mastoid effusion. No sinus air-fluid level. IMPRESSION: Findings of mild age-appropriate cortical atrophy and mild chronic ischemic white matter changes, no acute intracranial pathology noted Dictated by: Dr. Koffi Reilly MD 01/02/2019 11:[address] Koffi Reilly MD in [place] 01/02/2019 11:09
--- NOTE | 2019-01-02 08:29 | CA_ITS ---
APPROVED REPORT EXAM: Comprehensive 2D, Doppler, and color-flow Echocardiogram Director Of Rehabilitative Services: Jackie Frey, RT(R) Ht: 5 ft 10 in Wt: 195lbs BSA: 2.07 BP: 124/62 mmHg Indications: Syncope, HTN, hyperlipidemia, leukemia, CAD, stent,hx of AFIB 2D Dimensions Aortic Root 2.60 cm M: 3.1 - 3.7 Left Atrium 3.70 cm M: 3.0 - 4.0 LVOT 2.29 cm (M/F) 1.5-2.5 M-Mode Dimensions RVDd 2.22 cm (0.9-2.6) LVDd 6.05 cm (3.5-5.7) LVDs 4.30 cm (3.5-5.7) IVSd 1.11 cm (0.6-1.1) PWd 0.71 cm (0.6-1.1) EF (Teich) 54.70% FS 28.90% EDV (Teich) 183.40 mL ESV (Teich) 83.10 mL LV Diastology E/A Ratio 1.53 Aortic Valve LVOT Max 99.00 (70-110 cm/s) LVOT VTI 24.17 cm Mitral Valve MV A Velocity 54.00 (40-130 cm/s) Left Ventricle Left atrium is mildly enlarged, left ventricle is normal size, mild concentric left ventricular hypertrophy, visually estimated ejection fraction 55% with no regional wall motion abnormality, diastolic parameters are inconclusive. Right Ventricle Right atrium and right ventricular normal size and contractility. Aortic Valve Aortic valve is thickened and calcified leaflet continue to display some mobility. The mean gradient across valve is 12 mmHg, represents a mild aortic stenosis, there is mild aortic insufficiency. Mitral Valve Mitral inflow velocities within normal range, there is no mitral stenosis, there is mild mitral regurgitation. Tricuspid Valve Tricuspid valve is grossly normal, there is mild tricuspid regurgitation, tricuspid regurgitation jet velocity is inadequate for calculation of the right ventricular systolic pressure. Pulmonic Valve Pulmonic valve is poorly visualized. Great Vessels Aortic root is normal size. Pericardium No significant pericardial effusion noted. Conclusion 1. Mildly enlarged left atrium, normal left ventricular size, mild concentric left ventricular hypertrophy, visually estimated ejection fraction 55% with no regional wall motion abnormality, diastolic parameters are inconclusive. 2. Thickened and calcified aortic valve, there is mild aortic stenosis and mild aortic insufficiency. 3. Mild mitral and tricuspid regurgitation 4. No significant pericardial effusion noted. Electronically signed by : Bryce Escoto, 01/02/2019 20:37:10
--- NOTE | 2019-01-02 08:29 | CA_ITS ---
APPROVED REPORT Process Operator: JACQUELIN Laterality: Bilateral Indications: syncope Risk Factors Hypertension: Hyperlipidemia Doppler Spectral Velocity Analysis dICA (R) 124.60/40.80 cm/s dICA (L) 119.90/38.80 cm/s Ricardo (R) 95.00/34.70 cm/s Ricardo (L) 157.60/51.70 cm/s pICA (R) 98.40/34.00 cm/s pICA (L) 127.20/32.10 cm/s dCCA (R) 72.00/16.60 cm/s dCCA (L) 119.10/30.00 cm/s pCCA (R) 117.50/27.90 cm/s pCCA (L) 125.90/37.70 cm/s Vert (R) 39.60/11.20 cm/s Vert (L) 91.20/25.70 cm/s ICA/CCA 1.70 ICA/CCA 1.30 Findings Duplex evaluation demonstrates stenosis of the right proximal internal carotid artery <20% with PSV <140 cm/sec, EDV <100 cm/sec, and IC/CC Ratio <4.0.Duplex evaluation demonstrates stenosis of the left proximal internal carotid artery <20% with PSV <140 cm/sec, EDV <100 cm/sec, and IC/CC Ratio <4.0. Conclusion No increased velocities to suggest hemodynamically significant stenosis in either internal carotid artery. Electronically signed by : Pranav Washington MD 01/02/2019 15:45:59
[2019-01-02 10:43] LABS: Basophils % 0.2 % (0.1-2.0); Eosinophils % 0.1 % (0.1-12.0); Hematocrit 24.8 % (42.0-52.0); Lymphocytes # 0.9 K/mm3 (0.7-4.5); Mean Corpuscular HGB Conc 31.4 g/dL (31.8-35.4); Mean Corpuscular Hemoglobin 33.5 pg (27.0-31.2); Mean Corpuscular Volume 106.7 fl (80-94); Mean Platelet Volume 10.9 fl (7.4-10.4); Monocytes # 0.1 K/mm3 (0.1-1.0); Monocytes % 4.5 % (1.7-9.3); Neutrophils # 0.5 K/mm3 (1.8-7.8); Neutrophils % 35.1 % (37.0-80.0); Red Blood Count 2.32 M/mm3 (4.60-6.20); Red Cell Distribution Width 24.9 % (11.5-17.5); White Blood Count 1.5 K/mm3 (4.8-10.8)
[2019-01-02 10:44] LABS: Alanine Aminotransferase 46 U/L (12-78); Albumin Level 3.1 gm/dL (3.4-5.0); Albumin/Globulin Ratio 0.9 (1.1-1.8); Alkaline Phosphatase 51 U/L (46-116); Anion Gap 12.9 mEq/L (5-15); Aspartate Amino Transferase 29 U/L (15-37); Bilirubin,Total 0.4 mg/dL (0.2-1.0); Blood Urea Nitrogen 17 mg/dL (7-18); Calcium 8.8 mg/dL (8.5-10.1); Carbon Dioxide 28 mmol/L (21.0-32.0); Chloride 107 mmol/L (98-107); Creatinine Clearance Estimated 81 mL/min (50-200); Creatinine,Serum 0.81 mg/dL (0.70-1.30); Estimated Glomerular Filt Rate 93 ml/min (>60); GFR (African American) 113 ML/MIN (>60); Globulin 3.4 gm/dl (1.3-3.2); Glucose 122 mg/dL (74-106); Potassium 3.9 mmoL/L (3.5-5.1); Sodium 144 mmol/L (136-145); Total Protein,Serum 6.5 gm/dL (6.4-8.2)
[2019-01-02 10:54] LABS: Hemoglobin 7.8 g/dL (14.1-18.0); Platelet Count 42 K/mm3 (142-424)
[2019-01-02 10:55] LABS: MANUAL DIFFERENTIAL MANUAL DIFFERENTIAL (MANUAL DIFF)
[2019-01-02 11:03] LABS: Lymphocytes % 60 % (10-50); Monocytes % 4 % (2-9); Neutrophils % 32 % (42-76); Total Cells Counted 50
[2019-01-02 11:04] LABS: Anisocytosis 2+; Macrocytosis 1+; Platelet Estimate Marked Decrease; Tear Drop Cells 1+
[2019-01-02 11:07] LABS: Spherocytes 1+
[2019-01-02 16:46] LABS: Hematocrit 27.8 % (42.0-52.0)
[2019-01-02 16:48] LABS: Hemoglobin 9.3 g/dL (14.1-18.0)
== END ==
LOC: RAD 07:50 → INF 08:44
PROVIDERS: Internal Medicine Hematology & Oncology; PCP Family Medicine; Visit Provider Urology
DX: I25.10 Atherosclerotic heart disease of native coronary artery without angina pectoris; R55 Syncope and collapse; Z95.5 Presence of coronary angioplasty implant and graft; C92.00 Acute myeloblastic leukemia, not having achieved remission
CPT/HCPCS: 36430; 70450; 80053; 85007; 85014; 85018; 85025; 86850; 93306; 93880; J1642; P9016

== ENCOUNTER 2019-01-05 08:11 | Outpatient (CLI) | payer MEDICARE, OTHER, SELFPAY ==
[2019-01-05 08:17] VITALS: BMI 29.9
[2019-01-05 08:41] LABS: Basophils % 0.2 % (0.1-2.0); Eosinophils % 0.3 % (0.1-12.0); Hematocrit 28.2 % (42.0-52.0); Hemoglobin 9.2 g/dL (14.1-18.0); Lymphocytes # 0.9 K/mm3 (0.7-4.5); Lymphocytes % 61.4 % (10-50); Mean Corpuscular HGB Conc 32.5 g/dL (31.8-35.4); Mean Corpuscular Volume 101.3 fl (80-94); Mean Platelet Volume 10.8 fl (7.4-10.4); Monocytes # 0.1 K/mm3 (0.1-1.0); Monocytes % 9.6 % (1.7-9.3); Neutrophils # 0.4 K/mm3 (1.8-7.8); Neutrophils % 28.6 % (37.0-80.0); Platelet Count 52 K/mm3 (142-424); Red Blood Count 2.79 M/mm3 (4.60-6.20); Red Cell Distribution Width 24.4 % (11.5-17.5); White Blood Count 1.4 K/mm3 (4.8-10.8)
[2019-01-05 08:44] LABS: MANUAL DIFFERENTIAL MANUAL DIFFERENTIAL (MANUAL DIFF)
[2019-01-05 09:01] LABS: Alanine Aminotransferase 39 U/L (12-78); Albumin Level 2.9 gm/dL (3.4-5.0); Albumin/Globulin Ratio 0.9 (1.1-1.8); Alkaline Phosphatase 50 U/L (46-116); Anion Gap 12.8 mEq/L (5-15); Aspartate Amino Transferase 30 U/L (15-37); Bilirubin,Total 0.5 mg/dL (0.2-1.0); Blood Urea Nitrogen 15 mg/dL (7-18); Calcium 8.5 mg/dL (8.5-10.1); Carbon Dioxide 27 mmol/L (21.0-32.0); Chloride 107 mmol/L (98-107); Creatinine Clearance Estimated 87 mL/min (50-200); Estimated Glomerular Filt Rate 94 ml/min (>60); GFR (African American) 114 ML/MIN (>60); Globulin 3.3 gm/dl (1.3-3.2); Glucose 138 mg/dL (74-106); Potassium 3.8 mmoL/L (3.5-5.1); Sodium 143 mmol/L (136-145); Total Protein,Serum 6.2 gm/dL (6.4-8.2)
[2019-01-05 09:45] VITALS: BP 147/72; PULSE 53; RESP 18; TEMP 36.7; O2SAT 99
[2019-01-05 09:47] LABS: Lymphocytes % 64 % (10-50); Macrocytosis 1+; Monocytes % 6 % (2-9); Neutrophils % 24 % (42-76); Platelet Estimate Marked Decrease; Total Cells Counted 50
[2019-01-05 09:48] LABS: Anisocytosis 2+; Stomatocytes 1+; Tear Drop Cells 1+
[2019-01-05 09:49] LABS: Poikilocytosis 1+
[2019-01-05 10:00] VITALS: BP 141/64; PULSE 53; RESP 18; TEMP 36.6
[2019-01-05 10:35] VITALS: BP 142/90; PULSE 72; RESP 18; TEMP 36.3
[2019-01-05 14:27] VITALS: BP 142/90; PULSE 52; RESP 18; TEMP 36.3
== END 2019-01-05 10:35 | disposition home or self-care (01) ==
LOC: INF 08:11
PROVIDERS: Visit Provider Internal Medicine Medical Oncology
DX: Z51.11 Encounter for antineoplastic chemotherapy (principal); C92.00 Acute myeloblastic leukemia, not having achieved remission
CPT/HCPCS: 80053; 85007; 85025; 96413; J1642; J9025

== ENCOUNTER 2019-01-06 08:14 | Outpatient (CLI) | payer MEDICARE, OTHER, SELFPAY ==
[2019-01-06 08:55] VITALS: BP 128/61; PULSE 63; RESP 18; TEMP 36.9; O2SAT 95
[2019-01-06 09:10] VITALS: BP 129/65; PULSE 57; RESP 18; TEMP 36.6
[2019-01-06 09:28] VITALS: BP 129/65; PULSE 57; RESP 18
[2019-01-06 09:43] VITALS: BP 133/66; PULSE 56; RESP 18; TEMP 36.7
== END 2019-01-06 09:43 | disposition home or self-care (01) ==
LOC: INF 08:14
PROVIDERS: Visit Provider Internal Medicine Medical Oncology
DX: Z51.11 Encounter for antineoplastic chemotherapy (principal); C92.00 Acute myeloblastic leukemia, not having achieved remission
CPT/HCPCS: 96413; J1642; J9025

== ENCOUNTER 2019-01-07 08:14 | Outpatient (CLI) | payer MEDICARE, OTHER, SELFPAY ==
[2019-01-07 08:15] VITALS: BMI 29.9
[2019-01-07 08:32] LABS: Basophils % 0.3 % (0.1-2.0); Hematocrit 28.9 % (42.0-52.0); Hemoglobin 9.6 g/dL (14.1-18.0); Lymphocytes % 55.1 % (10-50); Mean Corpuscular HGB Conc 33.3 g/dL (31.8-35.4); Mean Corpuscular Hemoglobin 33.5 pg (27.0-31.2); Mean Corpuscular Volume 100.7 fl (80-94); Monocytes # 0.1 K/mm3 (0.1-1.0); Monocytes % 7.6 % (1.7-9.3); Neutrophils # 0.7 K/mm3 (1.8-7.8); Platelet Count 54 K/mm3 (142-424); Red Blood Count 2.87 M/mm3 (4.60-6.20); Red Cell Distribution Width 24.1 % (11.5-17.5); White Blood Count 1.8 K/mm3 (4.8-10.8)
[2019-01-07 08:41] LABS: Alanine Aminotransferase 43 U/L (12-78); Albumin/Globulin Ratio 0.9 (1.1-1.8); Alkaline Phosphatase 53 U/L (46-116); Aspartate Amino Transferase 31 U/L (15-37); Bilirubin,Total 0.5 mg/dL (0.2-1.0); Blood Urea Nitrogen 11 mg/dL (7-18); Calcium 8.8 mg/dL (8.5-10.1); Carbon Dioxide 28 mmol/L (21.0-32.0); Chloride 105 mmol/L (98-107); Creatinine Clearance Estimated 87 mL/min (50-200); Creatinine,Serum 0.93 mg/dL (0.70-1.30); Estimated Glomerular Filt Rate 79 ml/min (>60); GFR (African American) 96 ML/MIN (>60); Globulin 3.4 gm/dl (1.3-3.2); Glucose 131 mg/dL (74-106); Sodium 140 mmol/L (136-145); Total Protein,Serum 6.4 gm/dL (6.4-8.2)
[2019-01-07 08:48] LABS: MANUAL DIFFERENTIAL MANUAL DIFFERENTIAL (MANUAL DIFF)
[2019-01-07 09:12] LABS: Hypochromasia 1+; Lymphocytes % 56 % (10-50); Monocytes % 4 % (2-9); Neutrophils % 40 % (42-76); Stomatocytes 1+; Tear Drop Cells 1+; Total Cells Counted 25
[2019-01-07 09:13] LABS: Anisocytosis 1+; Macrocytosis 1+; Platelet Estimate Moderate Decrease
[2019-01-07 09:34] VITALS: BP 149/75; PULSE 59; RESP 18; TEMP 36.6; O2SAT 98
[2019-01-07 09:50] VITALS: BP 137/75; PULSE 62; RESP 18; TEMP 36.7
[2019-01-07 10:07] VITALS: BP 137/68; PULSE 58; RESP 18; TEMP 36.6
[2019-01-07 10:30] VITALS: BP 121/74; PULSE 62; RESP 18; TEMP 36.9
== END 2019-01-07 10:30 | disposition home or self-care (01) ==
LOC: INF 08:14
PROVIDERS: Visit Provider Internal Medicine Medical Oncology
DX: Z51.11 Encounter for antineoplastic chemotherapy (principal); C92.00 Acute myeloblastic leukemia, not having achieved remission
CPT/HCPCS: 80053; 85007; 85025; 96413; J9025

== ENCOUNTER 2019-01-08 08:06 | Outpatient (CLI) | payer MEDICARE, OTHER, SELFPAY ==
[2019-01-08 08:46] VITALS: BP 148/70; PULSE 90; RESP 18
[2019-01-08 09:02] VITALS: BP 152/76; PULSE 81; RESP 18; TEMP 36.7
[2019-01-08 09:18] VITALS: BP 129/71; PULSE 81; RESP 18; TEMP 36.7
[2019-01-08 09:43] VITALS: BP 127/67; PULSE 74; RESP 18; TEMP 36.8
== END 2019-01-08 09:43 | disposition home or self-care (01) ==
LOC: INF 08:06
PROVIDERS: Visit Provider Internal Medicine Medical Oncology
DX: Z51.11 Encounter for antineoplastic chemotherapy (principal); C92.00 Acute myeloblastic leukemia, not having achieved remission
CPT/HCPCS: 96413; J9025

== ENCOUNTER 2019-01-09 08:19 | Outpatient (CLI) | payer MEDICARE, OTHER, SELFPAY ==
[2019-01-09 08:17] VITALS: BMI 28.0
[2019-01-09 08:29] LABS: Basophils % 0.3 % (0.1-2.0); Eosinophils % 0.1 % (0.1-12.0); Hematocrit 30.6 % (42.0-52.0); Hemoglobin 10.1 g/dL (14.1-18.0); Lymphocytes # 1.3 K/mm3 (0.7-4.5); Lymphocytes % 53.7 % (10-50); Mean Corpuscular HGB Conc 33.1 g/dL (31.8-35.4); Mean Corpuscular Hemoglobin 33.6 pg (27.0-31.2); Mean Corpuscular Volume 101.5 fl (80-94); Mean Platelet Volume 11.3 fl (7.4-10.4); Monocytes # 0.2 K/mm3 (0.1-1.0); Neutrophils # 0.9 K/mm3 (1.8-7.8); Neutrophils % 38.9 % (37.0-80.0); Platelet Count 57 K/mm3 (142-424); Red Blood Count 3.01 M/mm3 (4.60-6.20); White Blood Count 2.4 K/mm3 (4.8-10.8)
[2019-01-09 08:34] LABS: MANUAL DIFFERENTIAL MANUAL DIFFERENTIAL (MANUAL DIFF)
[2019-01-09 08:40] LABS: Alanine Aminotransferase 39 U/L (12-78); Albumin/Globulin Ratio 0.8 (1.1-1.8); Alkaline Phosphatase 55 U/L (46-116); Anion Gap 10.7 mEq/L (5-15); Aspartate Amino Transferase 25 U/L (15-37); Bilirubin,Total 0.4 mg/dL (0.2-1.0); Blood Urea Nitrogen 17 mg/dL (7-18); Calcium 9.2 mg/dL (8.5-10.1); Carbon Dioxide 27 mmol/L (21.0-32.0); Chloride 107 mmol/L (98-107); Creatinine Clearance Estimated 81 mL/min (50-200); Creatinine,Serum 0.99 mg/dL (0.70-1.30); Estimated Glomerular Filt Rate 74 ml/min (>60); GFR (African American) 89 ML/MIN (>60); Globulin 3.6 gm/dl (1.3-3.2); Glucose 114 mg/dL (74-106); Potassium 3.7 mmoL/L (3.5-5.1); Sodium 141 mmol/L (136-145); Total Protein,Serum 6.6 gm/dL (6.4-8.2)
[2019-01-09 08:50] LABS: Lymphocytes % 59 % (10-50); Monocytes % 6 % (2-9); Neutrophils % 32 % (42-76); Total Cells Counted 100
[2019-01-09 08:51] LABS: Anisocytosis 2+; Macrocytosis 1+; Platelet Estimate Marked Decrease
[2019-01-09 08:54] LABS: Tear Drop Cells 1+
[2019-01-09 08:55] LABS: Acanthocytes 1+
[2019-01-09 09:22] VITALS: BP 128/73; PULSE 68; RESP 18; TEMP 36.6; O2SAT 98
[2019-01-09 09:45] VITALS: BP 114/67; PULSE 61; RESP 18; TEMP 36.9
[2019-01-09 10:03] VITALS: BP 123/70; PULSE 61; RESP 18; TEMP 36.7
[2019-01-09 10:30] VITALS: BP 131/69; PULSE 61; RESP 18; TEMP 36.8
== END 2019-01-09 10:30 | disposition home or self-care (01) ==
LOC: INF 08:19
PROVIDERS: Visit Provider Internal Medicine Medical Oncology
DX: Z51.11 Encounter for antineoplastic chemotherapy (principal); C92.00 Acute myeloblastic leukemia, not having achieved remission
CPT/HCPCS: 80053; 85007; 85025; 96413; J9025

== ENCOUNTER 2019-01-12 08:20 | Outpatient (CLI) | payer MEDICARE, OTHER, SELFPAY ==
[2019-01-12 08:22] VITALS: BMI 28.1
[2019-01-12 08:38] LABS: Basophils % 0.1 % (0.1-2.0); Eosinophils % 0.2 % (0.1-12.0); Hematocrit 29.8 % (42.0-52.0); Lymphocytes # 0.9 K/mm3 (0.7-4.5); Lymphocytes % 46.5 % (10-50); Mean Corpuscular HGB Conc 33.5 g/dL (31.8-35.4); Mean Corpuscular Hemoglobin 33.6 pg (27.0-31.2); Mean Corpuscular Volume 100.4 fl (80-94); Mean Platelet Volume 10.7 fl (7.4-10.4); Monocytes # 0.1 K/mm3 (0.1-1.0); Monocytes % 5.1 % (1.7-9.3); Neutrophils % 48.2 % (37.0-80.0); Red Blood Count 2.97 M/mm3 (4.60-6.20); Red Cell Distribution Width 23.5 % (11.5-17.5)
[2019-01-12 08:46] LABS: Platelet Count 48 K/mm3 (142-424)
[2019-01-12 08:50] LABS: Alanine Aminotransferase 43 U/L (12-78); Albumin Level 3.1 gm/dL (3.4-5.0); Albumin/Globulin Ratio 0.9 (1.1-1.8); Alkaline Phosphatase 54 U/L (46-116); Anion Gap 9.9 mEq/L (5-15); Aspartate Amino Transferase 29 U/L (15-37); Bilirubin,Total 0.6 mg/dL (0.2-1.0); Blood Urea Nitrogen 16 mg/dL (7-18); Calcium 9.1 mg/dL (8.5-10.1); Carbon Dioxide 27 mmol/L (21.0-32.0); Chloride 106 mmol/L (98-107); Creatinine Clearance Estimated 81 mL/min (50-200); Creatinine,Serum 0.92 mg/dL (0.70-1.30); Estimated Glomerular Filt Rate 80 ml/min (>60); GFR (African American) 97 ML/MIN (>60); Globulin 3.5 gm/dl (1.3-3.2); Glucose 126 mg/dL (74-106); Potassium 3.9 mmoL/L (3.5-5.1); Sodium 139 mmol/L (136-145); Total Protein,Serum 6.6 gm/dL (6.4-8.2)
== END 2019-01-12 09:25 | disposition home or self-care (01) ==
LOC: INF 08:20
PROVIDERS: Visit Provider Internal Medicine Hematology & Oncology
DX: C92.00 Acute myeloblastic leukemia, not having achieved remission (principal); Z45.2 Encounter for adjustment and management of vascular access device
CPT/HCPCS: 80053; 85025; J1642

== ENCOUNTER 2019-01-14 08:07 | Outpatient (CLI) | payer MEDICARE, OTHER, SELFPAY ==
[2019-01-14 08:09] VITALS: BMI 29.9
[2019-01-14 08:25] LABS: Basophils % 0.2 % (0.1-2.0); Eosinophils % 0.3 % (0.1-12.0); Hematocrit 28.7 % (42.0-52.0); Hemoglobin 9.5 g/dL (14.1-18.0); Lymphocytes % 51.6 % (10-50); Mean Corpuscular HGB Conc 33.2 g/dL (31.8-35.4); Mean Corpuscular Hemoglobin 33.8 pg (27.0-31.2); Mean Corpuscular Volume 101.8 fl (80-94); Mean Platelet Volume 11.1 fl (7.4-10.4); Monocytes # 0.1 K/mm3 (0.1-1.0); Monocytes % 5.5 % (1.7-9.3); Neutrophils # 0.9 K/mm3 (1.8-7.8); Neutrophils % 42.4 % (37.0-80.0); Red Blood Count 2.82 M/mm3 (4.60-6.20); Red Cell Distribution Width 23.7 % (11.5-17.5)
[2019-01-14 08:28] LABS: Platelet Count 28 K/mm3 (142-424)
[2019-01-14 08:30] LABS: MANUAL DIFFERENTIAL MANUAL DIFFERENTIAL (MANUAL DIFF)
[2019-01-14 08:49] LABS: Lymphocytes % 50 % (10-50); Monocytes % 2 % (2-9); Neutrophils % 48 % (42-76); Total Cells Counted 100
[2019-01-14 08:50] LABS: Anisocytosis 1+; Macrocytosis 1+
[2019-01-14 08:51] LABS: Acanthocytes 1+; Poikilocytosis 1+
[2019-01-14 08:52] LABS: Platelet Estimate Marked Decrease
== END 2019-01-14 08:45 | disposition home or self-care (01) ==
LOC: INF 08:07
PROVIDERS: Visit Provider Internal Medicine Hematology & Oncology
DX: C92.00 Acute myeloblastic leukemia, not having achieved remission (principal); Z45.2 Encounter for adjustment and management of vascular access device
CPT/HCPCS: 85007; 85025; J1642

== ENCOUNTER 2019-01-16 08:20 | Outpatient (CLI) | payer MEDICARE, OTHER, SELFPAY ==
[2019-01-16 08:21] VITALS: BP 134/67; PULSE 69; RESP 18; TEMP 37.2; O2SAT 100; BMI 28.1
[2019-01-16 08:38] LABS: Hematocrit 28.1 % (42.0-52.0); Hemoglobin 9.4 g/dL (14.1-18.0); Lymphocytes # 1.1 K/mm3 (0.7-4.5); Lymphocytes % 48.2 % (10-50); Mean Corpuscular HGB Conc 33.3 g/dL (31.8-35.4); Mean Corpuscular Volume 102.1 fl (80-94); Mean Platelet Volume 7.9 fl (7.4-10.4); Monocytes # 0.1 K/mm3 (0.1-1.0); Monocytes % 6.1 % (1.7-9.3); Neutrophils % 45.7 % (37.0-80.0); Red Blood Count 2.75 M/mm3 (4.60-6.20); Red Cell Distribution Width 23.5 % (11.5-17.5); White Blood Count 2.2 K/mm3 (4.8-10.8)
[2019-01-16 08:40] LABS: Alanine Aminotransferase 45 U/L (12-78); Albumin Level 3.1 gm/dL (3.4-5.0); Albumin/Globulin Ratio 0.9 (1.1-1.8); Alkaline Phosphatase 53 U/L (46-116); Anion Gap 9.7 mEq/L (5-15); Aspartate Amino Transferase 29 U/L (15-37); Bilirubin,Total 0.6 mg/dL (0.2-1.0); Blood Urea Nitrogen 14 mg/dL (7-18); Calcium 9.2 mg/dL (8.5-10.1); Carbon Dioxide 27 mmol/L (21.0-32.0); Chloride 105 mmol/L (98-107); Creatinine Clearance Estimated 81 mL/min (50-200); Creatinine,Serum 0.88 mg/dL (0.70-1.30); Estimated Glomerular Filt Rate 85 ml/min (>60); GFR (African American) 102 ML/MIN (>60); Globulin 3.5 gm/dl (1.3-3.2); Glucose 143 mg/dL (74-106); Potassium 3.7 mmoL/L (3.5-5.1); Sodium 138 mmol/L (136-145); Total Protein,Serum 6.6 gm/dL (6.4-8.2)
[2019-01-16 08:53] LABS: Platelet Count 19 K/mm3 (142-424)
[2019-01-16 09:03] VITALS: BP 134/67; PULSE 69; RESP 18; TEMP 37.2; O2SAT 100
[2019-01-16 09:05] VITALS: BP 134/67; PULSE 69; RESP 18; TEMP 37.2; O2SAT 100
== END 2019-01-16 09:06 | disposition home or self-care (01) ==
LOC: INF 08:20
PROVIDERS: Visit Provider Internal Medicine Hematology & Oncology
DX: C92.00 Acute myeloblastic leukemia, not having achieved remission (principal); Z45.2 Encounter for adjustment and management of vascular access device
CPT/HCPCS: 80053; 85025; J1642

== ENCOUNTER 2019-01-19 08:18 | Outpatient (CLI) | payer MEDICARE, OTHER, SELFPAY ==
[2019-01-19 08:20] VITALS: BMI 28.0
[2019-01-19 09:02] LABS: Alanine Aminotransferase 39 U/L (12-78); Albumin Level 2.9 gm/dL (3.4-5.0); Albumin/Globulin Ratio 0.8 (1.1-1.8); Alkaline Phosphatase 53 U/L (46-116); Anion Gap 11.9 mEq/L (5-15); Aspartate Amino Transferase 22 U/L (15-37); Bilirubin,Total 0.7 mg/dL (0.2-1.0); Blood Urea Nitrogen 16 mg/dL (7-18); Calcium 9.5 mg/dL (8.5-10.1); Carbon Dioxide 28 mmol/L (21.0-32.0); Chloride 105 mmol/L (98-107); Creatinine Clearance Estimated 81 mL/min (50-200); Creatinine,Serum 0.78 mg/dL (0.70-1.30); Estimated Glomerular Filt Rate 97 ml/min (>60); GFR (African American) 118 ML/MIN (>60); Globulin 3.8 gm/dl (1.3-3.2); Glucose 132 mg/dL (74-106); Potassium 3.9 mmoL/L (3.5-5.1); Sodium 141 mmol/L (136-145); Total Protein,Serum 6.7 gm/dL (6.4-8.2)
[2019-01-19 09:04] LABS: Basophils % 0.2 % (0.1-2.0); Eosinophils % 0.2 % (0.1-12.0); Hematocrit 26.9 % (42.0-52.0); Hemoglobin 8.7 g/dL (14.1-18.0); Lymphocytes # 0.9 K/mm3 (0.7-4.5); Lymphocytes % 41.7 % (10-50); Mean Corpuscular HGB Conc 32.3 g/dL (31.8-35.4); Mean Corpuscular Hemoglobin 34.4 pg (27.0-31.2); Mean Corpuscular Volume 106.3 fl (80-94); Mean Platelet Volume 7.7 fl (7.4-10.4); Monocytes # 0.1 K/mm3 (0.1-1.0); Monocytes % 5.8 % (1.7-9.3); Neutrophils # 1.1 K/mm3 (1.8-7.8); Neutrophils % 52.1 % (37.0-80.0); Red Blood Count 2.53 M/mm3 (4.60-6.20); Red Cell Distribution Width 23.7 % (11.5-17.5); White Blood Count 2.2 K/mm3 (4.8-10.8)
[2019-01-19 09:08] LABS: Platelet Count 11 K/mm3 (142-424)
== END 2019-01-19 09:30 | disposition home or self-care (01) ==
LOC: INF 08:19
PROVIDERS: Visit Provider Internal Medicine Hematology & Oncology
DX: C92.00 Acute myeloblastic leukemia, not having achieved remission (principal); Z45.2 Encounter for adjustment and management of vascular access device
CPT/HCPCS: 80053; 85025; J1642

== ENCOUNTER 2019-01-21 08:21 | Outpatient (CLI) | payer MEDICARE, OTHER, SELFPAY ==
[2019-01-21] VITALS (7 sets, daily range): BP systolic 116–131; BP diastolic 61–70; PULSE 66–69; RESP 18; TEMP 36.8–37; O2SAT 96–98; BMI 27.9
[2019-01-21 08:36] LABS: Basophils % 0.2 % (0.1-2.0); Eosinophils % 0.4 % (0.1-12.0); Hemoglobin 8.9 g/dL (14.1-18.0); Lymphocytes # 1.1 K/mm3 (0.7-4.5); Mean Corpuscular HGB Conc 33.1 g/dL (31.8-35.4); Mean Corpuscular Hemoglobin 34.9 pg (27.0-31.2); Mean Corpuscular Volume 105.4 fl (80-94); Mean Platelet Volume 10.3 fl (7.4-10.4); Monocytes # 0.1 K/mm3 (0.1-1.0); Monocytes % 3.8 % (1.7-9.3); Neutrophils # 1.2 K/mm3 (1.8-7.8); Neutrophils % 49.7 % (37.0-80.0); Red Blood Count 2.56 M/mm3 (4.60-6.20); Red Cell Distribution Width 23.9 % (11.5-17.5); White Blood Count 2.3 K/mm3 (4.8-10.8)
[2019-01-21 08:39] LABS: Platelet Count 9 K/mm3 (142-424)
[2019-01-21 14:57] LABS: Platelet Count 58 K/mm3 (142-424)
== END 2019-01-21 14:45 | disposition home or self-care (01) ==
LOC: INF 08:21
PROVIDERS: Visit Provider Internal Medicine Hematology & Oncology
DX: C92.00 Acute myeloblastic leukemia, not having achieved remission (principal)
CPT/HCPCS: 36430; 85025; 85049; 86900; 86901; J1642; P9034

== ENCOUNTER 2019-01-23 08:17 | Outpatient (CLI) | payer MEDICARE, OTHER, SELFPAY ==
[2019-01-23 08:17] VITALS: BMI 28.8
[2019-01-23 08:30] VITALS: BP 112/74; PULSE 68; RESP 20; TEMP 36.7; O2SAT 95
[2019-01-23 08:44] LABS: Basophils % 0.4 % (0.1-2.0); Eosinophils % 0.4 % (0.1-12.0); Hematocrit 25.3 % (42.0-52.0); Hemoglobin 8.3 g/dL (14.1-18.0); Lymphocytes # 0.9 K/mm3 (0.7-4.5); Lymphocytes % 52.3 % (10-50); Mean Corpuscular HGB Conc 32.8 g/dL (31.8-35.4); Mean Corpuscular Hemoglobin 34.8 pg (27.0-31.2); Mean Corpuscular Volume 106.1 fl (80-94); Mean Platelet Volume 9.6 fl (7.4-10.4); Monocytes # 0.1 K/mm3 (0.1-1.0); Monocytes % 3.8 % (1.7-9.3); Neutrophils # 0.7 K/mm3 (1.8-7.8); Neutrophils % 43.2 % (37.0-80.0); Red Blood Count 2.38 M/mm3 (4.60-6.20); Red Cell Distribution Width 23.6 % (11.5-17.5); White Blood Count 1.7 K/mm3 (4.8-10.8)
[2019-01-23 08:53] LABS: MANUAL DIFFERENTIAL MANUAL DIFFERENTIAL (MANUAL DIFF); Platelet Count 44 K/mm3 (142-424)
[2019-01-23 08:54] LABS: Alanine Aminotransferase 37 U/L (12-78); Albumin Level 2.8 gm/dL (3.4-5.0); Albumin/Globulin Ratio 0.7 (1.1-1.8); Alkaline Phosphatase 53 U/L (46-116); Anion Gap 12.8 mEq/L (5-15); Aspartate Amino Transferase 19 U/L (15-37); Bilirubin,Total 0.5 mg/dL (0.2-1.0); Blood Urea Nitrogen 12 mg/dL (7-18); Calcium 8.7 mg/dL (8.5-10.1); Carbon Dioxide 27 mmol/L (21.0-32.0); Chloride 105 mmol/L (98-107); Creatinine Clearance Estimated 84 mL/min (50-200); Creatinine,Serum 0.74 mg/dL (0.70-1.30); Estimated Glomerular Filt Rate 103 ml/min (>60); GFR (African American) 125 ML/MIN (>60); Globulin 3.9 gm/dl (1.3-3.2); Glucose 113 mg/dL (74-106); Potassium 3.8 mmoL/L (3.5-5.1); Sodium 141 mmol/L (136-145); Total Protein,Serum 6.7 gm/dL (6.4-8.2)
[2019-01-23 09:00] LABS: Acanthocytes 1+; Anisocytosis 1+; Lymphocytes % 57 % (10-50); Macrocytosis 1+; Monocytes % 5 % (2-9); Neutrophils % 38 % (42-76); Platelet Estimate Marked Decrease; Poikilocytosis 1+; Total Cells Counted 100
== END 2019-01-23 09:45 | disposition home or self-care (01) ==
LOC: INF 08:17
PROVIDERS: Visit Provider Internal Medicine Hematology & Oncology
DX: C92.00 Acute myeloblastic leukemia, not having achieved remission (principal); Z45.2 Encounter for adjustment and management of vascular access device
CPT/HCPCS: 80053; 85007; 85025

== ENCOUNTER 2019-01-26 08:23 | Outpatient (CLI) | payer MEDICARE, OTHER, SELFPAY ==
[2019-01-26] VITALS (19 sets, daily range): BP systolic 116–136; BP diastolic 55–86; PULSE 58–70; RESP 18–98; TEMP 36.2–37.1; O2SAT 95–98; BMI 27.9
[2019-01-26 08:38] LABS: Basophils % 0.5 % (0.1-2.0); Eosinophils % 0.4 % (0.1-12.0); Hematocrit 24.5 % (42.0-52.0); Lymphocytes # 0.8 K/mm3 (0.7-4.5); Lymphocytes % 60.9 % (10-50); Mean Corpuscular HGB Conc 32.6 g/dL (31.8-35.4); Mean Corpuscular Hemoglobin 34.5 pg (27.0-31.2); Mean Corpuscular Volume 105.9 fl (80-94); Mean Platelet Volume 10.3 fl (7.4-10.4); Monocytes % 2.8 % (1.7-9.3); Neutrophils # 0.5 K/mm3 (1.8-7.8); Neutrophils % 35.5 % (37.0-80.0); Red Blood Count 2.32 M/mm3 (4.60-6.20); Red Cell Distribution Width 23.9 % (11.5-17.5)
[2019-01-26 08:47] LABS: White Blood Count 1.3 K/mm3 (4.8-10.8)
[2019-01-26 08:48] LABS: Platelet Count 40 K/mm3 (142-424)
[2019-01-26 08:50] LABS: Alanine Aminotransferase 32 U/L (12-78); Albumin Level 2.8 gm/dL (3.4-5.0); Albumin/Globulin Ratio 0.7 (1.1-1.8); Alkaline Phosphatase 52 U/L (46-116); Anion Gap 11.9 mEq/L (5-15); Aspartate Amino Transferase 23 U/L (15-37); Bilirubin,Total 0.5 mg/dL (0.2-1.0); Blood Urea Nitrogen 16 mg/dL (7-18); Calcium 9.2 mg/dL (8.5-10.1); Carbon Dioxide 27 mmol/L (21.0-32.0); Chloride 105 mmol/L (98-107); Creatinine Clearance Estimated 81 mL/min (50-200); Creatinine,Serum 0.87 mg/dL (0.70-1.30); Estimated Glomerular Filt Rate 86 ml/min (>60); GFR (African American) 104 ML/MIN (>60); Globulin 3.9 gm/dl (1.3-3.2); Glucose 135 mg/dL (74-106); MANUAL DIFFERENTIAL MANUAL DIFFERENTIAL (MANUAL DIFF); Potassium 3.9 mmoL/L (3.5-5.1); Sodium 140 mmol/L (136-145); Total Protein,Serum 6.7 gm/dL (6.4-8.2)
[2019-01-26 08:54] LABS: Lymphocytes % 66 % (10-50); Monocytes % 2 % (2-9); Neutrophils % 32 % (42-76); Total Cells Counted 100
[2019-01-26 08:55] LABS: Anisocytosis 1+; Macrocytosis 1+; Platelet Estimate Moderate D
[2019-01-26 17:19] LABS: Hematocrit 27.8 % (42.0-52.0)
[2019-01-26 17:29] LABS: Hemoglobin 9.3 g/dL (14.1-18.0)
== END 2019-01-26 17:03 | disposition home or self-care (01) ==
LOC: INF 08:23
PROVIDERS: Visit Provider Internal Medicine Hematology & Oncology
DX: C92.00 Acute myeloblastic leukemia, not having achieved remission (principal)
CPT/HCPCS: 36415; 36430; 80053; 85007; 85014; 85018; 85025; 86850; J1642; P9016

== ENCOUNTER → 2019-01-27 10:00 | Outpatient (POV) | payer MEDICARE, OTHER, SELFPAY | PROVIDERS: PCP Dermatology; Visit Provider Dermatology | DX: Z00.00 Encounter for general adult medical examination without abnormal findings (principal) ==

== ENCOUNTER 2019-01-28 08:16 | Outpatient (CLI) | payer MEDICARE, OTHER, SELFPAY ==
[2019-01-28 08:18] VITALS: BMI 27.8
[2019-01-28 08:33] LABS: Basophils % 0.9 % (0.1-2.0); Eosinophils % 0.2 % (0.1-12.0); Hematocrit 30.6 % (42.0-52.0); Hemoglobin 9.9 g/dL (14.1-18.0); Lymphocytes # 0.5 K/mm3 (0.7-4.5); Lymphocytes % 57.5 % (10-50); Mean Corpuscular HGB Conc 32.3 g/dL (31.8-35.4); Mean Corpuscular Hemoglobin 32.4 pg (27.0-31.2); Mean Corpuscular Volume 100.5 fl (80-94); Mean Platelet Volume 10.4 fl (7.4-10.4); Monocytes % 3.4 % (1.7-9.3); Neutrophils # 0.4 K/mm3 (1.8-7.8); Red Blood Count 3.04 M/mm3 (4.60-6.20); Red Cell Distribution Width 24.6 % (11.5-17.5)
[2019-01-28 08:38] LABS: MANUAL DIFFERENTIAL MANUAL DIFFERENTIAL (MANUAL DIFF); Platelet Count 38 K/mm3 (142-424); White Blood Count 0.9 K/mm3 (4.8-10.8)
[2019-01-28 08:44] LABS: Lymphocytes % 52 % (10-50); Monocytes % 4 % (2-9); Neutrophils % 40 % (42-76); Platelet Estimate Marked Decrease; Total Cells Counted 25
[2019-01-28 08:45] LABS: Anisocytosis 2+; Helmet Cells 1+; Macrocytosis 1+
[2019-01-28 08:46] LABS: Stomatocytes 1+
== END 2019-01-28 09:00 | disposition home or self-care (01) ==
LOC: INF 08:16
PROVIDERS: Visit Provider Internal Medicine Hematology & Oncology
DX: C92.00 Acute myeloblastic leukemia, not having achieved remission (principal); Z45.2 Encounter for adjustment and management of vascular access device
CPT/HCPCS: 85007; 85025; J1642

== ENCOUNTER 2019-01-30 08:10 | Outpatient (CLI) | payer MEDICARE, OTHER, SELFPAY ==
[2019-01-30 08:16] VITALS: BMI 28.1
[2019-01-30 08:38] LABS: Basophils % 0.7 % (0.1-2.0); Eosinophils % 0.2 % (0.1-12.0); Hematocrit 29.6 % (42.0-52.0); Hemoglobin 9.8 g/dL (14.1-18.0); Lymphocytes # 0.7 K/mm3 (0.7-4.5); Lymphocytes % 55.4 % (10-50); Mean Corpuscular HGB Conc 32.9 g/dL (31.8-35.4); Mean Corpuscular Hemoglobin 33.3 pg (27.0-31.2); Mean Corpuscular Volume 101.1 fl (80-94); Mean Platelet Volume 10.9 fl (7.4-10.4); Monocytes # 0.1 K/mm3 (0.1-1.0); Monocytes % 6.6 % (1.7-9.3); Neutrophils # 0.4 K/mm3 (1.8-7.8); Platelet Count 55 K/mm3 (142-424); Red Blood Count 2.93 M/mm3 (4.60-6.20); Red Cell Distribution Width 24.1 % (11.5-17.5); White Blood Count 1.2 K/mm3 (4.8-10.8)
[2019-01-30 08:41] LABS: MANUAL DIFFERENTIAL MANUAL DIFFERENTIAL (MANUAL DIFF)
[2019-01-30 08:49] LABS: Alanine Aminotransferase 45 U/L (12-78); Albumin Level 2.8 gm/dL (3.4-5.0); Albumin/Globulin Ratio 0.7 (1.1-1.8); Alkaline Phosphatase 48 U/L (46-116); Anion Gap 9.9 mEq/L (5-15); Aspartate Amino Transferase 32 U/L (15-37); Bilirubin,Total 0.4 mg/dL (0.2-1.0); Blood Urea Nitrogen 14 mg/dL (7-18); Carbon Dioxide 28 mmol/L (21.0-32.0); Chloride 104 mmol/L (98-107); Creatinine Clearance Estimated 81 mL/min (50-200); Creatinine,Serum 0.86 mg/dL (0.70-1.30); Estimated Glomerular Filt Rate 87 ml/min (>60); GFR (African American) 105 ML/MIN (>60); Globulin 3.8 gm/dl (1.3-3.2); Glucose 157 mg/dL (74-106); Potassium 3.9 mmoL/L (3.5-5.1); Sodium 138 mmol/L (136-145); Total Protein,Serum 6.6 gm/dL (6.4-8.2)
[2019-01-30 08:51] LABS: Lymphocytes % 60 % (10-50); Neutrophils % 24 % (42-76); Platelet Estimate Marked Decrease; Tear Drop Cells 1+; Total Cells Counted 25
[2019-01-30 08:52] LABS: Anisocytosis 1+; Macrocytosis 1+
== END 2019-01-30 09:40 | disposition home or self-care (01) ==
LOC: INF 08:15
PROVIDERS: Visit Provider Internal Medicine Hematology & Oncology
DX: C92.00 Acute myeloblastic leukemia, not having achieved remission (principal); Z45.2 Encounter for adjustment and management of vascular access device
CPT/HCPCS: 80053; 85007; 85025; J1642

== ENCOUNTER → 2019-02-02 08:14 | Outpatient (CLI) | payer MEDICARE, OTHER, SELFPAY ==
[2019-02-02 08:17] VITALS: BMI 29.8
[2019-02-02 08:40] LABS: Basophils % 0.3 % (0.1-2.0); Eosinophils % 0.1 % (0.1-12.0); Hematocrit 30.6 % (42.0-52.0); Hemoglobin 9.7 g/dL (14.1-18.0); Lymphocytes # 0.9 K/mm3 (0.7-4.5); Lymphocytes % 55.3 % (10-50); Mean Corpuscular HGB Conc 31.7 g/dL (31.8-35.4); Mean Corpuscular Hemoglobin 32.7 pg (27.0-31.2); Mean Corpuscular Volume 103.1 fl (80-94); Mean Platelet Volume 10.9 fl (7.4-10.4); Monocytes # 0.1 K/mm3 (0.1-1.0); Monocytes % 7.6 % (1.7-9.3); Neutrophils # 0.6 K/mm3 (1.8-7.8); Neutrophils % 36.7 % (37.0-80.0); Platelet Count 61 K/mm3 (142-424); Red Blood Count 2.97 M/mm3 (4.60-6.20); Red Cell Distribution Width 24.7 % (11.5-17.5); White Blood Count 1.7 K/mm3 (4.8-10.8)
[2019-02-02 08:47] LABS: MANUAL DIFFERENTIAL MANUAL DIFFERENTIAL (MANUAL DIFF)
[2019-02-02 08:55] LABS: Anisocytosis 1+; Lymphocytes % 48 % (10-50); Macrocytosis 1+; Neutrophils % 42 % (42-76); Nucleated Red Blood Cells 1; Total Cells Counted 50
[2019-02-02 08:56] LABS: Platelet Estimate Moderate Decrease
[2019-02-02 09:11] LABS: Alanine Aminotransferase 47 U/L (12-78); Albumin Level 2.8 gm/dL (3.4-5.0); Albumin/Globulin Ratio 0.7 (1.1-1.8); Alkaline Phosphatase 56 U/L (46-116); Aspartate Amino Transferase 37 U/L (15-37); Bilirubin,Total 0.5 mg/dL (0.2-1.0); Blood Urea Nitrogen 14 mg/dL (7-18); Calcium 8.8 mg/dL (8.5-10.1); Carbon Dioxide 28 mmol/L (21.0-32.0); Chloride 105 mmol/L (98-107); Creatinine Clearance Estimated 86 mL/min (50-200); Creatinine,Serum 0.83 mg/dL (0.70-1.30); Estimated Glomerular Filt Rate 91 ml/min (>60); GFR (African American) 110 ML/MIN (>60); Globulin 3.8 gm/dl (1.3-3.2); Glucose 133 mg/dL (74-106); Sodium 141 mmol/L (136-145); Total Protein,Serum 6.6 gm/dL (6.4-8.2)
[2019-02-02 10:05] VITALS: BP 141/64; PULSE 62; RESP 18; O2SAT 96
[2019-02-02 10:20] VITALS: BP 121/62; PULSE 61; RESP 18
[2019-02-02 10:40] VITALS: BP 138/78; PULSE 64; RESP 18; TEMP 36.8
[2019-02-02 10:57] VITALS: BP 142/66; PULSE 63; RESP 18
== END ==
PROVIDERS: Visit Provider Internal Medicine Medical Oncology
DX: Z51.11 Encounter for antineoplastic chemotherapy (principal); C92.00 Acute myeloblastic leukemia, not having achieved remission
CPT/HCPCS: 80053; 85007; 85025; 96413; J1642; J9025

== ENCOUNTER 2019-02-03 08:09 | Outpatient (CLI) | payer MEDICARE, OTHER, SELFPAY ==
[2019-02-03 08:50] VITALS: BP 101/50; PULSE 100; RESP 18; TEMP 37.4
[2019-02-03 09:05] VITALS: BP 106/60; PULSE 88; RESP 18; TEMP 37.4
[2019-02-03 09:20] VITALS: BP 96/59; PULSE 88; RESP 18
[2019-02-03 09:45] VITALS: BP 102/58; PULSE 93; RESP 18; TEMP 37.3
== END 2019-02-03 09:45 | disposition home or self-care (01) ==
LOC: INF 08:09
PROVIDERS: Visit Provider Internal Medicine Medical Oncology
DX: Z51.11 Encounter for antineoplastic chemotherapy (principal); C92.00 Acute myeloblastic leukemia, not having achieved remission
CPT/HCPCS: 96413; J9025

== ENCOUNTER 2019-02-04 08:19 | Outpatient (CLI) | payer MEDICARE, OTHER, SELFPAY ==
[2019-02-04 08:22] VITALS: BMI 29.8
[2019-02-04 08:39] LABS: Eosinophils % 0.2 % (0.1-12.0); Hematocrit 30.7 % (42.0-52.0); Hemoglobin 9.7 g/dL (14.1-18.0); Lymphocytes # 1.1 K/mm3 (0.7-4.5); Lymphocytes % 48.2 % (10-50); Mean Corpuscular HGB Conc 31.6 g/dL (31.8-35.4); Mean Corpuscular Volume 104.6 fl (80-94); Monocytes # 0.2 K/mm3 (0.1-1.0); Monocytes % 6.5 % (1.7-9.3); Neutrophils # 1.1 K/mm3 (1.8-7.8); Neutrophils % 45.2 % (37.0-80.0); Platelet Count 60 K/mm3 (142-424); Red Blood Count 2.93 M/mm3 (4.60-6.20); Red Cell Distribution Width 24.8 % (11.5-17.5); White Blood Count 2.3 K/mm3 (4.8-10.8)
[2019-02-04 09:32] VITALS: BP 119/64; PULSE 84; RESP 18; TEMP 36.6; O2SAT 97
[2019-02-04 10:02] VITALS: BP 127/67; PULSE 63; RESP 18; O2SAT 98
[2019-02-04 10:20] VITALS: BP 121/61; PULSE 59; RESP 18; TEMP 36.6; O2SAT 97
== END 2019-02-04 10:20 | disposition home or self-care (01) ==
LOC: INF 08:19
PROVIDERS: Visit Provider Internal Medicine Medical Oncology
DX: Z51.11 Encounter for antineoplastic chemotherapy (principal); C92.00 Acute myeloblastic leukemia, not having achieved remission
CPT/HCPCS: 85025; 96413; J9025

== ENCOUNTER 2019-02-05 10:45 | Outpatient (CLI) | payer MEDICARE, OTHER, SELFPAY ==
[2019-02-05 11:25] VITALS: BP 130/66; PULSE 88; RESP 18; TEMP 36.9
[2019-02-05 11:40] VITALS: BP 130/70; PULSE 57; RESP 18; TEMP 36.8
[2019-02-05 12:13] VITALS: BP 128/68; PULSE 59; RESP 18; TEMP 36.8
== END 2019-02-05 12:13 | disposition home or self-care (01) ==
LOC: INF 10:45
PROVIDERS: Visit Provider Internal Medicine Medical Oncology
DX: Z51.11 Encounter for antineoplastic chemotherapy (principal); C92.00 Acute myeloblastic leukemia, not having achieved remission
CPT/HCPCS: 96413; J9025

== ENCOUNTER → 2019-02-06 08:10 | Outpatient (CLI) | payer MEDICARE, OTHER, SELFPAY ==
[2019-02-06 08:33] LABS: Basophils % 0.2 % (0.1-2.0); Eosinophils % 0.1 % (0.1-12.0); Hematocrit 30.1 % (42.0-52.0); Hemoglobin 9.8 g/dL (14.1-18.0); Lymphocytes # 1.1 K/mm3 (0.7-4.5); Lymphocytes % 48.6 % (10-50); Mean Corpuscular HGB Conc 32.4 g/dL (31.8-35.4); Mean Corpuscular Hemoglobin 33.9 pg (27.0-31.2); Mean Corpuscular Volume 104.5 fl (80-94); Mean Platelet Volume 10.4 fl (7.4-10.4); Monocytes # 0.1 K/mm3 (0.1-1.0); Monocytes % 4.6 % (1.7-9.3); Neutrophils # 1.1 K/mm3 (1.8-7.8); Neutrophils % 46.6 % (37.0-80.0); Platelet Count 58 K/mm3 (142-424); Red Blood Count 2.88 M/mm3 (4.60-6.20); Red Cell Distribution Width 24.3 % (11.5-17.5); White Blood Count 2.3 K/mm3 (4.8-10.8)
[2019-02-06 08:42] LABS: Alanine Aminotransferase 46 U/L (12-78); Albumin Level 2.8 gm/dL (3.4-5.0); Albumin/Globulin Ratio 0.7 (1.1-1.8); Alkaline Phosphatase 58 U/L (46-116); Anion Gap 10.2 mEq/L (5-15); Aspartate Amino Transferase 35 U/L (15-37); Bilirubin,Total 0.4 mg/dL (0.2-1.0); Blood Urea Nitrogen 16 mg/dL (7-18); Calcium 8.6 mg/dL (8.5-10.1); Carbon Dioxide 27 mmol/L (21.0-32.0); Chloride 107 mmol/L (98-107); Creatinine Clearance Estimated 2 mL/min (50-200); Creatinine,Serum 0.94 mg/dL (0.70-1.30); Estimated Glomerular Filt Rate 78 ml/min (>60); GFR (African American) 95 ML/MIN (>60); Globulin 3.9 gm/dl (1.3-3.2); Glucose 151 mg/dL (74-106); Potassium 4.2 mmoL/L (3.5-5.1); Sodium 140 mmol/L (136-145); Total Protein,Serum 6.7 gm/dL (6.4-8.2)
[2019-02-06 09:30] VITALS: BP 123/70; PULSE 61; RESP 18; TEMP 36.8; O2SAT 95
[2019-02-06 09:45] VITALS: BP 113/66; PULSE 58; RESP 18; TEMP 36.8; O2SAT 96
[2019-02-06 10:26] LABS: T4 (Thyroxine) 7.9 ug/dl (4.7-13.3); Thyroid Stimulating Hormone 2.69 uIU/ml (0.358-3.740); Triiodothryronine (T3) Uptake 38 % (31-39)
[2019-02-06 10:30] VITALS: BP 121/63; PULSE 57; RESP 18
== END | disposition home or self-care (01) ==
PROVIDERS: Internal Medicine; Visit Provider Internal Medicine Medical Oncology
DX: I10 Essential (primary) hypertension; I25.10 Atherosclerotic heart disease of native coronary artery without angina pectoris; I48.0 Paroxysmal atrial fibrillation; R06.09 Other forms of dyspnea; R55 Syncope and collapse; Z99.89 Dependence on other enabling machines and devices; C92.00 Acute myeloblastic leukemia, not having achieved remission
CPT/HCPCS: 80053; 84436; 84443; 84479; 85025; 96413; J9025

== ENCOUNTER 2019-02-09 08:08 | Outpatient (CLI) | payer MEDICARE, OTHER, SELFPAY ==
[2019-02-09 08:29] VITALS: BMI 29.8
[2019-02-09 08:39] LABS: Basophils % 0.2 % (0.1-2.0); Eosinophils % 0.3 % (0.1-12.0); Hematocrit 30.2 % (42.0-52.0); Hemoglobin 9.8 g/dL (14.1-18.0); Lymphocytes # 0.6 K/mm3 (0.7-4.5); Lymphocytes % 39.4 % (10-50); Mean Corpuscular HGB Conc 32.4 g/dL (31.8-35.4); Mean Corpuscular Volume 104.9 fl (80-94); Mean Platelet Volume 10.9 fl (7.4-10.4); Monocytes # 0.1 K/mm3 (0.1-1.0); Monocytes % 5.7 % (1.7-9.3); Neutrophils # 0.9 K/mm3 (1.8-7.8); Neutrophils % 54.4 % (37.0-80.0); Red Blood Count 2.88 M/mm3 (4.60-6.20); Red Cell Distribution Width 24.3 % (11.5-17.5); White Blood Count 1.6 K/mm3 (4.8-10.8)
[2019-02-09 08:41] LABS: Platelet Count 41 K/mm3 (142-424)
[2019-02-09 09:17] LABS: Alanine Aminotransferase 49 U/L (12-78); Albumin Level 2.9 gm/dL (3.4-5.0); Albumin/Globulin Ratio 0.8 (1.1-1.8); Alkaline Phosphatase 55 U/L (46-116); Anion Gap 9.7 mEq/L (5-15); Aspartate Amino Transferase 31 U/L (15-37); Bilirubin,Total 0.5 mg/dL (0.2-1.0); Blood Urea Nitrogen 16 mg/dL (7-18); Calcium 9.1 mg/dL (8.5-10.1); Carbon Dioxide 27 mmol/L (21.0-32.0); Chloride 104 mmol/L (98-107); Creatinine Clearance Estimated 86 mL/min (50-200); Creatinine,Serum 0.91 mg/dL (0.70-1.30); Estimated Glomerular Filt Rate 81 ml/min (>60); GFR (African American) 99 ML/MIN (>60); Globulin 3.8 gm/dl (1.3-3.2); Glucose 127 mg/dL (74-106); Potassium 3.7 mmoL/L (3.5-5.1); Sodium 137 mmol/L (136-145); Total Protein,Serum 6.7 gm/dL (6.4-8.2)
== END 2019-02-09 08:55 | disposition home or self-care (01) ==
LOC: INF 08:08
PROVIDERS: Visit Provider Internal Medicine Hematology & Oncology
DX: C92.00 Acute myeloblastic leukemia, not having achieved remission (principal); Z45.2 Encounter for adjustment and management of vascular access device
CPT/HCPCS: 80053; 85025; J1642

== ENCOUNTER 2019-02-11 08:00 | Outpatient (CLI) | payer MEDICARE, OTHER, SELFPAY ==
[2019-02-11 08:07] VITALS: BMI 27.8
[2019-02-11 08:32] LABS: Basophils % 0.1 % (0.1-2.0); Eosinophils % 0.1 % (0.1-12.0); Hemoglobin 9.2 g/dL (14.1-18.0); Lymphocytes # 1.1 K/mm3 (0.7-4.5); Lymphocytes % 55.9 % (10-50); Mean Corpuscular HGB Conc 31.9 g/dL (31.8-35.4); Mean Corpuscular Hemoglobin 33.9 pg (27.0-31.2); Mean Corpuscular Volume 106.2 fl (80-94); Mean Platelet Volume 10.2 fl (7.4-10.4); Monocytes # 0.1 K/mm3 (0.1-1.0); Monocytes % 5.7 % (1.7-9.3); Neutrophils # 0.8 K/mm3 (1.8-7.8); Neutrophils % 38.3 % (37.0-80.0); Red Blood Count 2.73 M/mm3 (4.60-6.20); Red Cell Distribution Width 24.4 % (11.5-17.5)
[2019-02-11 08:34] LABS: Platelet Count 29 K/mm3 (142-424)
[2019-02-11 08:35] LABS: MANUAL DIFFERENTIAL MANUAL DIFFERENTIAL (MANUAL DIFF)
[2019-02-11 08:58] LABS: Lymphocytes % 56 % (10-50); Monocytes % 8 % (2-9); Neutrophils % 28 % (42-76); Platelet Estimate Marked Decrease; RBC Morphology Normal; Total Cells Counted 25
== END 2019-02-11 09:25 | disposition home or self-care (01) ==
LOC: INF 08:05
PROVIDERS: Visit Provider Internal Medicine Hematology & Oncology
DX: C92.00 Acute myeloblastic leukemia, not having achieved remission (principal)
CPT/HCPCS: 85007; 85025; J1642

== ENCOUNTER 2019-02-13 08:10 | Outpatient (CLI) | payer MEDICARE, OTHER, SELFPAY ==
[2019-02-13] VITALS (7 sets, daily range): BP systolic 102–177; BP diastolic 50–67; PULSE 58–90; RESP 18–22; TEMP 36.8–37.2; O2SAT 94; BMI 27.8
[2019-02-13 08:35] LABS: Basophils % 0.1 % (0.1-2.0); Eosinophils % 0.1 % (0.1-12.0); Lymphocytes # 0.8 K/mm3 (0.7-4.5); Lymphocytes % 40.2 % (10-50); Mean Corpuscular HGB Conc 33.5 g/dL (31.8-35.4); Mean Corpuscular Volume 98.6 fl (80-94); Mean Platelet Volume 8.8 fl (7.4-10.4); Monocytes # 0.2 K/mm3 (0.1-1.0); Monocytes % 8.2 % (1.7-9.3); Neutrophils % 51.4 % (37.0-80.0); Red Cell Distribution Width 23.5 % (11.5-17.5)
[2019-02-13 08:44] LABS: Alanine Aminotransferase 46 U/L (12-78); Albumin Level 2.8 gm/dL (3.4-5.0); Albumin/Globulin Ratio 0.7 (1.1-1.8); Alkaline Phosphatase 54 U/L (46-116); Anion Gap 12.8 mEq/L (5-15); Aspartate Amino Transferase 28 U/L (15-37); Bilirubin,Total 0.6 mg/dL (0.2-1.0); Blood Urea Nitrogen 17 mg/dL (7-18); Carbon Dioxide 27 mmol/L (21.0-32.0); Chloride 103 mmol/L (98-107); Creatinine Clearance Estimated 81 mL/min (50-200); Creatinine,Serum 0.83 mg/dL (0.70-1.30); Estimated Glomerular Filt Rate 91 ml/min (>60); GFR (African American) 110 ML/MIN (>60); Globulin 3.8 gm/dl (1.3-3.2); Glucose 122 mg/dL (74-106); Potassium 3.8 mmoL/L (3.5-5.1); Sodium 139 mmol/L (136-145); Total Protein,Serum 6.6 gm/dL (6.4-8.2)
[2019-02-13 08:45] LABS: Red Blood Count 2.72 M/mm3 (4.60-6.20); White Blood Count 1.9 K/mm3 (4.8-10.8)
[2019-02-13 08:46] LABS: Platelet Count 14 K/mm3 (142-424)
[2019-02-13 13:42] LABS: Platelet Count 22 K/mm3 (142-424)
--- NOTE | 2019-02-13 14:56 | PC.NURSE ---
1315 - PLT TRANSFUSION COMPLETE AT 1255. AT 1315 PT TOLD HIS HE WAS COLD SO BLANKETS WERE APPLIED. HE IMMEDIATELY BEGAN HAVING VIGOROUS, UNCONTROLLABLE RIGORS AND CHILLS. ALSO COMPLAINED OF ACHES IN UPPER THIGHS/HIPS. TEMP 98.8F. 1330 - PT CONTINUES TO HAVE RIGORS AND CHILLS WITH NO RELIEF OF SYMPTOMS. TEMP ELEVATED TO 100F. RE-CHECKED ALL BLOOD LABELS, PATIENT ID#, AND TRANSFUSION RECORDS AND NO DISCREPANCIES WERE FOUND. ATTEMPTED TO NOTIFY DR HOUSTON'S OFFICE TWICE WITH NO RESPONSE. CALL MADE TO [facility] ED AND IT WAS DECIDED TO TRANSFER PT THERE FOR SYMPTOM MANAGEMENT AND FURTHER WORK-UP. 1345 - PT TRANSFERRED TO ED BY [facility]-. LAB NOTIFIED OF POSSIBLE TRANSFUSION REACTION. LORI FROM LAB CAME TO COLLECT POSTREACTION BLOOD SAMPLES AND CARE OF PT HANDED OFF TO HERIBERTO PACHECO RN.
== END 2019-02-13 13:45 | disposition still patient (30) ==
LOC: INF 08:13
PROVIDERS: Visit Provider Internal Medicine Hematology & Oncology
DX: C92.00 Acute myeloblastic leukemia, not having achieved remission (principal)
CPT/HCPCS: 36430; 80053; 85025; 85049; 86900; 86901; G0463; P9034

== ENCOUNTER 2019-02-13 13:50 | Inpatient (IN) ==
[2019-02-13 15:37] LABS: Microscopic, Urine URINE MICROSCOPIC (MICROSCOPIC)
[2019-02-13 15:40] LABS: Appearance,Urine CLEAR (Clear); Bilirubin,Urine Negative (Negative); Blood, Urine TRACE-L (Negative); Color,Urine YELLOW (Yellow); Glucose,Urine (UA) Negative (Negative); Ketones,Urine Negative (Negative); Leukocyte Esterase,Urine Negative (Negative); PH,Urine 5.5 (5.0-8.5); Protein,Urine Negative (Negative); Specific Gravity, Urine >= 1.030 (1.005-1.030); Urobilinogen,Urine 0.2 EU/dl (0.2)
[2019-02-13 15:58] LABS: Bacteria,Urine Trace /lpf; WBC,Urine Occasional #/hpf (0-3)
--- NOTE | 2019-02-13 16:56 | Emergency Department Note ---
ED Disposition Clinical Impression: Transfusion reaction, Chronic myelogenous leukemia Disposition: Admitted As Inpatient Condition on Discharge: Serious Time of Disposition: 17:02 - Critical Care Critical Care Time: No Attestation: On 02/13/19, the high probability of a clinically significant, sudden or life threatening deterioration of the following system(s) required my full and direct attention, intervention and personal management. The time I documented below is in addition to time spent performing reported procedures but includes the following listed in this critical care notation. Medical Decision Making - Medical Records Medical records reviewed: Yes: I reviewed the patient's medical records. - [place] Inquiry Pt receiving controlled substance: No Vital Signs: 02/13/19 14:08 02/13/19 14:11 02/13/19 14:14 Temperature 99.5 F 102 F H Temperature Source Oral Oral Pulse Rate [Left Radial] 90 90 71 Pulse Rate [Right Brachial] 90 Respiratory Rate 16 Blood Pressure [Right Arm] 132/82 108/68 L 132/82 Blood Pressure Mean [Right Arm] 98 81 98 Blood Pressure Position [Right Arm] Sitting 02 Sat by Pulse Oximetry 98 Oxygen Delivery Method Room Air 02/13/19 14:25 02/13/19 14:30 02/13/19 15:00 Temperature 102 F H Temperature Source Oral Pulse Rate [Left Radial] 88 91 H 91 H Pulse Rate [Right Brachial] Respiratory Rate Blood Pressure [Right Arm] 108/68 L 108/68 L 106/63 L Blood Pressure Mean [Right Arm] 81 81 77 Blood Pressure Position [Right Arm] Sitting 02 Sat by Pulse Oximetry 96 Oxygen Delivery Method 02/13/19 15:30 02/13/19 16:00 Temperature 99.6 F Temperature Source Oral Pulse Rate [Left Radial] 87 79 Pulse Rate [Right Brachial] Respiratory Rate Blood Pressure [Right Arm] 109/64 L 107/55 L Blood Pressure Mean [Right Arm] 79 72 Blood Pressure Position [Right Arm] 02 Sat by Pulse Oximetry 96 96 Oxygen Delivery Method - Lab Data Lab results reviewed: Yes: I reviewed the patient's lab results. Lab Results 02/13/19 15:32: Urine Color Yellow, Urine Appearance Clear, Urine pH 5.5, Ur Specific [place] >= 1.030, Urine Protein Negative, Urine Glucose (UA) Negative, Urine Ketones Negative, Urine Blood Trace-l, Urine Nitrate Negative, Urine Bilirubin Negative, Urine Urobilinogen 0.2, Ur Leukocyte Esterase Negative, Urine WBC Occasional, Urine Bacteria Trace Orders (Tests/Meds): ED MEDICATIONS Generic Name Dose Route Start Last Admin Trade Name Freq PRN Reason Stop Dose Admin Sodium Chloride 8 ml 02/13/19 14:07 Sodium Chloride 0.9% 10ml Vial IV 03/15/19 14:06 NEEDED PRN dilute pepcid Discontinued Medications Generic Name Dose Route Start Last Admin Trade Name Freq PRN Reason Stop Dose Admin Acetaminophen 1,000 mg 02/13/19 14:16 02/13/19 14:16 Tylenol 500mg Tablet PO 02/13/19 14:17 500 mg ONCE ONE Administration Diphenhydramine HCl 50 mg 02/13/19 14:06 02/13/19 14:15 Benadryl 50mg/1ml Vial IV 02/13/19 14:07 50 mg ONCE ONE Administration Famotidine 20 mg 02/13/19 14:07 02/13/19 14:15 Pepcid 20mg/2ml Vial IV 02/13/19 14:08 20 mg ONCE ONE Administration Sodium Chloride 1,000 mls @ 999 mls/hr 02/13/19 14:15 Sod Chlor 0.9% 1000ml Bag IV 02/13/19 15:15 .Q1H1M CELESTINO Methylprednisolone Sodium Succinate 125 mg 02/13/19 14:06 02/13/19 14:15 Solu-Medrol 125mg/2ml Vial IV 02/13/19 14:07 125 mg ONCE ONE Administration ORDERS Category Date Time Status Transfusion Reaction Workup Stat BBK 02/13/19 14:28 Ordered BNP [B-Type Natriuretic Peptide] Stat Lab 02/13/19 16:35 Ordered CBC [Complete Blood Count Auto Diff] Stat Lab 02/13/19 16:32 Ordered CMP [Comprehensive Metabolic Panel] Stat Lab 02/13/19 16:34 Ordered TSH [Thyroid Stimulating Hormone] Stat Lab 02/13/19 16:34 Ordered Trop I [Troponin I] Stat Lab 02/13/19 16:34 Ordered General Adult HPI - General Chief complaint: Fever Stated complaint: fever Time Seen by Provider: 02/13/19 14:10 Mode of Arrival: Wheelchair Limitations: No Limitations Description of Symptoms (Recalled from ER Triage Doc. by RN): to ed pt sent from infusion due to rigors and increasing temp after receiving platelet infusion. pt to ed pt c/o "shakes" denies any other c/o at present. - History of Present Illness HPI narrative: 73-year-old male being treated for chronic myelogenous leukemia presents with a transfusion reaction to his platelet transfusion. Onset (ago): minute(s) (39) Severity: severe Consistency: constant Relieving factors: none Exacerbating factors: none Associated symptoms: other (Shaking, chills, shortness of breath.) - Related Data Home Medications Medication Instructions Recorded Confirmed Cholecalciferol (Vitamin D3) [D3 2,000 unit PO HS 03/28/17 02/13/19 Dots] Aspirin [Aspirin 81mg EC Tab] 81 mg PO DAILY 06/10/17 02/13/19 Fluconazole [Diflucan] 400 mg PO DAILY 06/10/17 02/13/19 acyclovir 400 mg tablet 400 mg PO TID 08/13/17 02/13/19 ueuglruf-svo-wqplx acid 300 1 tab PO HS tab 08/13/17 02/13/19 mcg-lycopene 600 mcg-lutein 300 mcg tablet levofloxacin 500 mg tablet 500 mg PO DAILY 04/10/18 02/13/19 ondansetron HCl 4 mg tablet 4 mg PO Q8HP PRN 08/05/18 02/13/19 Venetoclax [Venclexta] 200 mg PO HS 09/08/18 02/13/19 azaCITIDine [Azacitidine] 160 mg IV DIRECTED 09/10/18 02/13/19 Potassium 20 meq PO DAILY 10/02/18 02/13/19 Bisoprolol Fumarate 5 mg PO DAILY 02/13/19 02/13/19 Rivaroxaban [Xarelto] 20 mg PO DAILY 02/13/19 02/13/19 Previous Rx's Medication Instructions Recorded atorvastatin 40 mg tablet 40 mg PO DAILY #30 tab 09/26/18 Allergies Allergy/AdvReac Type Severity Reaction Status Date / Time No Known Allergies Allergy Verified 02/03/19 10:03 [facility] History - Hepatitis A Screen Drug use history?: No High risk sexual behaviors?: No History of sexually transmitted infection?: No Currently employed?: No Childcare worker?: No Do you have indoor plumbing?: Yes Do you have electricity?: Yes Attestation statement:: This patient has been screened for Hepatitis A risk factors. I have reviewed the patient's past medical history: Yes Medical History: Reports:: Arrhythmia, Atherosclerotic Heart Disease, Atrial Fibrillation, Cancer, Coronary Artery Disease, Hyperlipidemia, Hypertension Denies:: Diabetes Mellitus Type 1, Diabetes Mellitus Type 2, Internal Pacemaker, MRSA, Seizures Other Medical History: Reports: Chemotherapy, Hoarseness. Denies: Blood Transfusion Reaction Other Surgeries: Yes: Appendectomy, Cardiac Catheterization, Colonoscopy, Coronary Stent, Other (left chest port implanted). No: Pacemaker Amputation: No Fractures: No Comment: Port inserted - Social History Smoking Status: Former smoker Tobacco Type: cigarettes # Packs/Day (cigarettes): 2 Alcohol Intake: never Alcohol Intake Frequency:: holidays/special occasions only Substance Use Type: denies use Occupational Status: retired Housing: house Household Members: spouse Family Hx:: Cancer, Heart Attack, Hyperlipidemia, Hypertension, Stroke ROS Obtained: Yes Systems reviewed as appropriate & no additional complaints - Constitutional Constitutional: Reports chills, Reports fatigue, Reports fever(s), Reports malaise - Eyes Eyes: Reports system reviewed and no additional complaints, except as docu - ENT Ears, Nose, Mouth, and Throat: Reports system reviewed and no additional co mplaints, except as docu - Cardiovascular Cardiovascular: Reports system reviewed and no additional complaints, except as docu - Respiratory Respiratory: Yes system reviewed and no additional complaints, except as docu - Gastrointestinal Gastrointestingal: Reports: system reviewed and no additional complaints, except as docu - Genitourinary Male Genitourinary: Reports system reviewed and no additional complaints, except as docu - Musculoskeletal Musculoskeletal: Reports system reviewed and no additional complaints, except as docu - Integumentary/Breasts Skin/Breast: Reports system reviewed and no additional complaints, except as docu - Neurologic Neurologic: Reports system reviewed and no additional complaints, except as docu - Endocrine Endocrine: Reports system reviewed and no additional complaints, except as docu - Hematologic/Lymphatic Henatologic/Lymphatic: Reports system reviewed and no additional complaints, except as docu - Allergic/Immunologic Allergic/Immunologic: Reports system reviewed and no additional complaints, except as docu Physical Exam - General General appearance: alert, in no apparent distress - Head Head exam: atraumatic, normocephalic, normal inspection - Eye Eye exam: Present: normal appearance, PERRL, EOMI - ENT ENT exam: Present: normal exam, normal oropharynx, mucous membranes moist, TM's normal bilaterally, normal external ear exam - Neck Neck exam: Present: normal inspection, full ROM, trachea midline. Absent: meningismus, lymphadenopathy - Chest Chest inspection: Present: normal inspection, symmetric chest wall rise. Absent: tenderness - Respiratory Respiratory exam: Present: normal lung sounds bilaterally. Absent: respiratory distress - Cardiovascular Cardiovascular exam: Present: regular rate, normal rhythm. Absent: JVD - Abdominal Exam Abdominal exam: Present: soft, normal bowel sounds. Absent: distention, tenderness, guarding - Extremities Exam Extremities exam: Present: normal inspection, full ROM, normal capillary refill. Absent: calf tenderness - Back Exam Back exam: Present: normal inspection. Absent: tenderness - Neurological Exam Neurological exam: Present: alert, oriented X3, CN II-XII intact. Absent: motor sensory deficit - Psychiatric Psychiatric exam: Present: normal affect, normal mood - Skin Skin exam: Present: warm, dry, intact, normal color
[2019-02-13 17:32] LABS: Alanine Aminotransferase 51 U/L (12-78); Albumin Level 3.1 gm/dL (3.4-5.0); Albumin/Globulin Ratio 0.8 (1.1-1.8); Alkaline Phosphatase 58 U/L (46-116); Anion Gap 18.9 mEq/L (5-15); Aspartate Amino Transferase 31 U/L (15-37); Bilirubin,Total 0.5 mg/dL (0.2-1.0); Blood Urea Nitrogen 15 mg/dL (7-18); Carbon Dioxide 22 mmol/L (21.0-32.0); Chloride 103 mmol/L (98-107); Globulin 4.1 gm/dl (1.3-3.2); Glucose 86 mg/dL (74-106); Sodium 140 mmol/L (136-145); Thyroid Stimulating Hormone 2.46 uIU/ml (0.358-3.740); Total Protein,Serum 7.2 gm/dL (6.4-8.2)
[2019-02-13 17:41] LABS: Total Cells Counted 50
[2019-02-13 17:43] LABS: RBC Morphology Normal
[2019-02-14 05:59] LABS: Lymphocytes # 0.7 K/mm3 (0.7-4.5); Monocytes # 0.1 K/mm3 (0.1-1.0); Neutrophils # 1.4 K/mm3 (1.8-7.8); White Blood Count 2.2 K/mm3 (4.8-10.8)
[2019-02-14 06:05] LABS: Eosinophils % 0.2 % (0.1-12.0); Lymphocytes % 31.9 % (10-50); Mean Corpuscular HGB Conc 31.8 g/dL (31.8-35.4); Mean Corpuscular Volume 100.8 fl (80-94); Mean Platelet Volume 8.3 fl (7.4-10.4); Monocytes % 3.6 % (1.7-9.3); Neutrophils % 64.2 % (37.0-80.0); Red Blood Count 2.53 M/mm3 (4.60-6.20); Red Cell Distribution Width 23.7 % (11.5-17.5)
[2019-02-14 06:08] LABS: Hematocrit 25.5 % (42.0-52.0); Hemoglobin 8.1 g/dL (14.1-18.0); Platelet Count 14 K/mm3 (142-424)
[2019-02-14 06:47] LABS: Albumin Level 2.8 gm/dL (3.4-5.0); Albumin/Globulin Ratio 0.9 (1.1-1.8); Anion Gap 13.9 mEq/L (5-15); Bilirubin,Total 0.4 mg/dL (0.2-1.0); Calcium 8.3 mg/dL (8.5-10.1); Chol/HDL Ratio 3.3 (1-3.5); Globulin 3.1 gm/dl (1.3-3.2); Phosphorous 2.7 mg/dL (2.4-4.9); Total Protein,Serum 5.9 gm/dL (6.4-8.2)
[2019-02-14 06:49] LABS: Basophils % 0.1 % (0.1-2.0); Hematocrit 25.5 % (42.0-52.0); Hemoglobin 8.3 g/dL (14.1-18.0); Lymphocytes # 0.7 K/mm3 (0.7-4.5); Lymphocytes % 29.5 % (10-50); Mean Corpuscular HGB Conc 32.4 g/dL (31.8-35.4); Mean Corpuscular Volume 101.1 fl (80-94); Mean Platelet Volume 8.1 fl (7.4-10.4); Monocytes # 0.1 K/mm3 (0.1-1.0); Neutrophils # 1.4 K/mm3 (1.8-7.8); Neutrophils % 65.4 % (37.0-80.0); Red Blood Count 2.52 M/mm3 (4.60-6.20); Red Cell Distribution Width 23.8 % (11.5-17.5); White Blood Count 2.2 K/mm3 (4.8-10.8)
[2019-02-14 06:54] LABS: Platelet Count 14 K/mm3 (142-424)
--- NOTE | 2019-02-14 09:55 | Pharmacy Consult Notes ---
[facility] Pharmacy VTE Monitoring - Patient Demographics Admission date: 02/13/19 Report Date: 02/14/19 Time: 09:55 Allergies/Adverse Reactions: Patient Allergies No Known Allergies Allergy (Verified 02/03/19 10:03) Height: 1.78 m Weight: 85.8 kg Patient Problems: Current Active Problems Transfusion reaction (Acute) Chronic myelogenous leukemia (Acute) - VTE Risk Labs: VTE Related Lab Results Hgb 8.3 g/dL (14.1-18.0) L 02/14/19 06:40 Hct 25.5 % (42.0-52.0) L 02/14/19 06:40 Plt Count 14 K/mm3 (142-424) L* 02/14/19 06:40 BUN 19 mg/dL (7-18) H D 02/14/19 05:50 Creatinine 0.82 mg/dL (0.70-1.30) 02/14/19 05:50 Estimated Creat Clear 79 mL/min (50-200) 02/14/19 05:50 - Prophylaxis VTE Prophylaxis Ordered?: Yes Types of VTE Prophylaxis: TEDS Knee High Location of Applied Device: Bilateral Lower Extremeties
[2019-02-14 11:19] LABS: Hemoglobin 8.3 g/dL (14.1-18.0); Red Blood Count 2.52 M/mm3 (4.60-6.20)
[2019-02-14 11:20] LABS: Hematocrit 25.1 % (42.0-52.0); Mean Corpuscular Volume 99.6 fl (80-94)
[2019-02-14 11:22] LABS: Red Cell Distribution Width 23.7 % (11.5-17.5)
[2019-02-14 11:25] LABS: Platelet Count 17 K/mm3 (142-424)
[2019-02-14 11:26] LABS: Mean Platelet Volume 10.3 fl (7.4-10.4); Neutrophils % 41.5 % (37.0-80.0)
--- NOTE | 2019-02-14 11:26 | History & Physical Report ---
*Admission Date: 02/13/19 *Chief complaint: Transfusion reaction *History of present illness: Is a 73-year-old male who presented to our ED after having transfusion reaction from platelets. He has a known history of CML and gets chemo infusions 5 times a week and believes he is in cycle 5. He also take a chemo pill every day at night. He mentions that he gets platelet infusions once a month. He denies having any transfusion reaction in the past and have always tolerated his platelet transfusion. However this time he had some nausea and chills during this transfusion. So he presented to our ED for further work-up. In the ED, his symptoms resolved with Solu-Medrol, Pepcid and Benadryl in the ED . However he was admitted to our hospital for observation. During his admission, within 24 hrs he triggered for sepsis with neutropenic fever of 102. Blood cultures were drawn at that time from his port. However no blood cultures were drawn from the peripheral blood until 02/14/2019 at 11 AM during rounds. During rounds, he was still having some shakes and chills when I examined him this morning. He denies having any nausea or vomiting episodes. He did mention having some bleeding from his right great toe. He is known to be on Xarelto for his A. fib. He also expressed his concern about going home today as he feels comfortable staying in the hospital until his work-up is negative. He mentioned that he saw Dr. Monge recently who follows him for his CML. He endorses of declining memory and some syncopal episodes for the past few weeks. However he mentions that he had ultrasound of the carotid, echo, CT of the head, which all turned out to be negative. Upon chart reviewing, the test results were confirmed to be negative. He has not had any fever since last night. Feeling slightly better but mentions that he is not ready to go home yet. [facility] History I have reviewed the patient's past medical history: Yes Medical History: Reports:: Arrhythmia, Atherosclerotic Heart Disease, Atrial Fibrillation, Cancer, Coronary Artery Disease, Hyperlipidemia, Hypertension Denies:: Diabetes Mellitus Type 1, Diabetes Mellitus Type 2, Internal Pacemaker, MRSA, Seizures *Have you ever received a pneumonia vaccine?: Yes *Have you received a flu vaccine this season?: Yes Other Medical History: Reports: Chemotherapy, Hoarseness. Denies: Blood T ransfusion Reaction Other Surgeries: Yes: Appendectomy, Cardiac Catheterization, Colonoscopy, Coronary Stent, Other (left chest port implanted). No: Pacemaker Amputation: No Fractures: No - *Social History Educational Level: Completed High School Smoking Status: Former smoker Tobacco Type: cigarettes # Packs/Day (cigarettes): 2 Alcohol Intake: never Alcohol Intake Frequency:: holidays/special occasions only Substance Use Type: denies use *Occupational Status:: retired Housing: house Household Members: spouse *Travel in the last 8 weeks: None Family Hx:: Heart Attack, Stroke Review of Systems - Constitutional Reports chills, Reports fever(s) (earlier in the night), Reports lack of energy, Reports malaise - Eyes Denies blind spots, Denies blurry vision, Denies bulging eyes - ENT Reports dizziness, Denies bleeding gums, Denies nosebleed, Denies hoarseness - *Cardiovascular Denies chest pain, Denies chest pain at rest, Denies chest pain with activity, Denies leg pain with activity, Denies excessive sweating - *Respiratory Denies change in phlegm color, Denies chest congestion, Denies cough - *Gastrointestinal Denies abdominal pain, Denies belching, Denies bloating - *Genitourinary Denies difficulty urinating, Denies painful urination - *Musculoskeletal Reports decreased muscle mass, Reports muscle weakness, Denies abnormal walking, Denies radiating pain into limb - Integumentary/Breasts Reports nail changes, Denies bleeding lesions Comments: Bleeding ingrown nail on the right great toe - *Neurologic Denies abnormal hearing, Denies behavioral changes, Denies confusion Comments: Decrease in memory - Psychiatric Denies abnormal sleep pattern, Denies behavioral changes - Hematologic/Lymphatic Reports easy bleeding, Denies easy bruising - Allergic/Immunologic Denies GI upset with certain foods, Denies throat swelling Meds Home Medications Medication Instructions Recorded Confirmed Type Cholecalciferol (Vitamin D3) [D3 2,000 unit PO HS 03/28/17 02/13/19 History Dots] Aspirin [Aspirin 81mg EC Tab] 81 mg PO DAILY 06/10/17 02/13/19 History Fluconazole [Diflucan] 400 mg PO DAILY 06/10/17 02/13/19 History acyclovir 400 mg tablet 400 mg PO TID 08/13/17 02/13/19 History kwobembn-out-ywpdy acid 300 1 tab PO HS tab 08/13/17 02/13/19 History mcg-lycopene 600 mcg-lutein 300 mcg tablet ondansetron HCl 4 mg tablet 8 mg PO Q8HP PRN 08/05/18 02/14/19 History Venetoclax [Venclexta] 200 mg PO HS 09/08/18 02/13/19 History azaCITIDine [Azacitidine] 160 mg IV DIRECTED 09/10/18 02/13/19 History atorvastatin 40 mg tablet 40 mg PO DAILY #30 tab 09/26/18 02/13/19 Rx Potassium 20 meq PO DAILY 10/02/18 02/13/19 History Bisoprolol Fumarate 5 mg PO DAILY 02/13/19 02/13/19 History Polyethylene Glycol 3350 [Miralax 17 gm PO DAILY 02/13/19 02/13/19 History 17gm Packet] Rivaroxaban [Xarelto] 20 mg PO DAILY 02/13/19 02/13/19 History levoFLOXacin [Levaquin 500mg 500 mg PO DAILY 02/13/19 02/13/19 History tab] Allergies Allergy/AdvReac Type Severity Reaction Status Date / Time No Known Allergies Allergy Verified 02/03/19 10:03 Exam Vital signs and Labs for Last 24 Hours: Temp Pulse Resp BP Pulse Ox 98.7 F 69 17 135/77 98 02/14/19 08:00 02/14/19 08:00 02/14/19 08:00 02/14/19 08:00 02/14/19 08:00 Laboratory Results - last 24 hr 02/13/19 14:00: WBC 1.4 L* D, RBC 3.73 L D, Hgb 12.6 L D, Hct 38.2 L, MCV 102.5 H, MCH 33.8 H, MCHC 33.0, RDW 23.7 H, Plt Count 15 L* D, MPV 8.5, Neut % (Auto) 33.9 L, Lymph % (Auto) 63.1 H, [place] % (Auto) 2.6, Eos % (Auto) 0.0 L, Baso % (Auto) 0.4, Neut # (Auto) 0.5 L*, Lymph # (Auto) 0.9, [place] # (Auto) 0.0 L, Eos # (Auto) 0.0, Baso # (Auto) 0.0, Total Counted 50, Neutrophils % (Manual) 42, Lymphocytes % (Manual) 54 H, Monocytes % (Manual) 4, Platelet Estimate Marked decrease, RBC Morphology Normal 02/13/19 14:00: Sodium 140, Potassium 3.9, Chloride 103, Carbon Dioxide 22, Anion Gap 18.9 H, BUN 15, Creatinine 0.98, Estimated Creat Clear 79, Estimated GFR 75, Est GFR ( Amer) 90, Glucose 86 D, Calcium 9.0, Total Bilirubin 0.5, AST 31, ALT 51, Alkaline Phosphatase 58, Troponin I < 0.02, Total Protein 7.2, Albumin 3.1 L D, Globulin 4.1 H, Albumin/Globulin Ratio 0.8 L, TSH 2.46 02/13/19 14:00: B-Natriuretic Peptide 208 H 02/13/19 15:32: Urine Color Yellow, Urine Appearance Clear, Urine pH 5.5, Ur Specific [place] >= 1.030, Urine Protein Negative, Urine Glucose (UA) Negative, Urine Ketones Negative, Urine Blood Trace-l, Urine Nitrate Negative, Urine Bilirubin Negative, Urine Urobilinogen 0.2, Ur Leukocyte Esterase Negative, Urine WBC Occasional, Urine Bacteria Trace 02/14/19 05:50: WBC 2.2 L D, RBC 2.53 L D, Hgb 8.1 L D, Hct 25.5 L, MCV 100.8 H, MCH 32.1 H, MCHC 31.8, RDW 23.7 H, Plt Count 14 L*, MPV 8.3, Neut % (Auto) 64.2, Lymph % (Auto) 31.9, [place] % (Auto) 3.6, Eos % (Auto) 0.2, Baso % (Auto) 0.0 L, Neut # (Auto) 1.4 L, Lymph # (Auto) 0.7, [place] # (Auto) 0.1, Eos # (Auto) 0.0, Baso # (Auto) 0.0 02/14/19 05:50: Sodium 144, Potassium 3.9, Chloride 109 H, Carbon Dioxide 25, Anion Gap 13.9, BUN 19 H D, Creatinine 0.82, Estimated Creat Clear 79, Estimated GFR 92, Est GFR ( Amer) 111 D, Glucose 129 H D, Calcium 8.3 L, Phosphorus 2.7, Magnesium 1.9, Total Bilirubin 0.4, AST 9 L D, ALT 10 L D, Alkaline Phosphatase 54, Total Protein 5.9 L, Albumin 2.8 L, Globulin 3.1, Albumin/Globulin Ratio 0.9 L, Triglycerides 57, Cholesterol 121 L, LDL Cholesterol 73, VLDL Cholesterol 11, HDL Cholesterol 37, Cholesterol/HDL Ratio 3.3 02/14/19 06:40: WBC 2.2 L, RBC 2.52 L, Hgb 8.3 L, Hct 25.5 L, MCV 101.1 H, MCH 32.8 H, MCHC 32.4, RDW 23.8 H, Plt Count 14 L*, MPV 8.1, Neut % (Auto) 65.4, Lymph % (Auto) 29.5, [place] % (Auto) 5.0, Eos % (Auto) 0.0 L, Baso % (Auto) 0.1, Neut # (Auto) 1.4 L, Lymph # (Auto) 0.7, [place] # (Auto) 0.1, Eos # (Auto) 0.0, Baso # (Auto) 0.0 I & O for Last 24 hours: Intake & Output 02/11/19 02/12/19 02/13/19 02/14/19 11:59 11:59 11:59 11:59 Intake Total 1166 / 1166 Output Total 900 / 900 Balance 266 / 266 Weight 189 lb 2.506 oz - Constitutional Comments: ill appearing - *Routine HEENT Exam Head: Present: normocephalic Eye: Present: EOMI, PERRL ENT: Present: mucous membranes dry - *Routine Neck Exam Present: supple. Absent: lymphadenopathy - *Routine Respiratory Exam Present: CTA bilaterally - *Routine Cardiovascular Exam Present: RRR - *Routine Abdominal Exam Present: soft, normoactive bowel sounds. Absent: tenderness - *Routine Extremities Exam Absent: cyanosis, clubbing, edema - *Routine Skin Exam Present: warm. Absent: rash Comments: Bleeding ingrown tail noted on right great toe - *Routine Neurological Exam Present: alert, oriented X3 Assessment and Plan (1) Neutropenic fever Current visit: No Status: Acute Category: Medical Code(s): D70.9 - Neutropenia, unspecified; R50.81 - Fever presenting with conditions classified elsewhere (2) Thrombocytopenia Current visit: Yes Status: Acute Category: Medical Code(s): D69.6 - Thrombocytopenia, unspecified (3) Hypertension Current visit: No Status: Chronic Qualifiers: Hypertension type: essential hypertension Qualified Code(s): I10 - Essential (primary) hypertension Category: Medical Code(s): I10 - Essential (primary) hypertension (4) Coronary artery disease Current visit: No Status: Chronic Qualifiers: Coronary Disease-Associated Artery/Lesion type: [place] artery [place] vs. transplanted heart: [place] heart Associated angina: without angina Qualified Code(s): I25.10 - Atherosclerotic heart disease of [place] coronary artery without angina pectoris Category: Medical Code(s): I25.10 - Atherosclerotic heart disease of [place] coronary artery without angina pectoris (5) Presence of stent in right coronary artery Current visit: No Status: Chronic Category: Medical Code(s): Z95.5 - Presence of coronary angioplasty implant and graft (6) Anemia Current visit: No Status: Chronic Category: Medical Code(s): D64.9 - Anemia, unspecified (7) Chronic myelogenous leukemia Current visit: Yes Status: Acute Category: Medical Code(s): C92.10 - Chronic myeloid leukemia, BCR/ABL-positive, not having achieved remission (8) Atrial fibrillation Current visit: No Status: Acute Qualifiers: Atrial fibrillation type: unspecified Qualified Code(s): I48.91 - Unspecified atrial fibrillation Category: Medical Code(s): I48.91 - Unspecified atrial fibrillation (9) HLD (hyperlipidemia) Current visit: No Status: Chronic Qualifiers: Hyperlipidemia type: mixed hyperlipidemia Qualified Code(s): E78.2 - Mixed hyperlipidemia Category: Medical Code(s): E78.5 - Hyperlipidemia, unspecified (10) Tinea unguium Current visit: Yes Status: Acute Category: Medical Code(s): B35.1 - Tinea unguium - Assessment and plan all Dx Assessment and Plan for all problems:: Dr. Sosa's request, patient was started on Zosyn for his neutropenic fever. He is responding well to the medication at this point today. Will await blood cultures. We will consult podiatry for bleeding ingrown toenail assessment and provide wound care for now.
[2019-02-14 11:27] LABS: Eosinophils % 0.1 % (0.1-12.0); Lymphocytes % 53.6 % (10-50); Monocytes % 4.8 % (1.7-9.3)
[2019-02-14 11:28] LABS: Lymphocytes # 0.5 K/mm3 (0.7-4.5); Monocytes # 0.1 K/mm3 (0.1-1.0); Neutrophils # 0.4 K/mm3 (1.8-7.8)
[2019-02-14 11:56] LABS: Albumin Level 2.7 gm/dL (3.4-5.0); Albumin/Globulin Ratio 0.7 (1.1-1.8); Anion Gap 13.8 mEq/L (5-15); Bilirubin,Total 0.4 mg/dL (0.2-1.0); Globulin 3.8 gm/dl (1.3-3.2); Total Protein,Serum 6.5 gm/dL (6.4-8.2)
[2019-02-14 12:25] LABS: Basophils % 0.1 % (0.1-2.0); Eosinophils % 0.1 % (0.1-12.0); Hematocrit 26.9 % (42.0-52.0); Hemoglobin 8.8 g/dL (14.1-18.0); Lymphocytes # 0.7 K/mm3 (0.7-4.5); Lymphocytes % 26.4 % (10-50); Mean Corpuscular HGB Conc 32.8 g/dL (31.8-35.4); Mean Corpuscular Volume 102.9 fl (80-94); Monocytes # 0.1 K/mm3 (0.1-1.0); Monocytes % 5.2 % (1.7-9.3); Neutrophils # 1.7 K/mm3 (1.8-7.8); Neutrophils % 68.1 % (37.0-80.0); Red Blood Count 2.61 M/mm3 (4.60-6.20); Red Cell Distribution Width 23.8 % (11.5-17.5); White Blood Count 2.5 K/mm3 (4.8-10.8)
[2019-02-14 12:28] LABS: Platelet Count 21 K/mm3 (142-424)
[2019-02-14 15:15] LABS: Neutrophils % 52 % (42-76)
[2019-02-14 15:16] LABS: Lymphocytes % 28 % (10-50); Monocytes % 18 % (2-9)
[2019-02-15 06:49] LABS: Basophils % 0.1 % (0.1-2.0); Eosinophils % 0.1 % (0.1-12.0); Hemoglobin 8.4 g/dL (14.1-18.0); Lymphocytes # 1.2 K/mm3 (0.7-4.5); Lymphocytes % 44.4 % (10-50); Mean Corpuscular HGB Conc 31.9 g/dL (31.8-35.4); Mean Corpuscular Volume 102.6 fl (80-94); Mean Platelet Volume 8.5 fl (7.4-10.4); Monocytes # 0.3 K/mm3 (0.1-1.0); Monocytes % 10.9 % (1.7-9.3); Neutrophils # 1.2 K/mm3 (1.8-7.8); Neutrophils % 44.5 % (37.0-80.0); Red Blood Count 2.57 M/mm3 (4.60-6.20); Red Cell Distribution Width 23.9 % (11.5-17.5); White Blood Count 2.8 K/mm3 (4.8-10.8)
[2019-02-15 07:00] LABS: Hematocrit 26.3 % (42.0-52.0); Platelet Count 15 K/mm3 (142-424)
[2019-02-15 07:05] LABS: Albumin Level 2.8 gm/dL (3.4-5.0); Albumin/Globulin Ratio 0.8 (1.1-1.8); Anion Gap 14.3 mEq/L (5-15); Bilirubin,Total 0.6 mg/dL (0.2-1.0); Calcium 8.7 mg/dL (8.5-10.1); Globulin 3.6 gm/dl (1.3-3.2); Total Protein,Serum 6.4 gm/dL (6.4-8.2)
--- NOTE | 2019-02-15 11:36 | Progress Note ---
Internal Medicine - PN: Subj *Date: 02/15/19 *Time: 11:31 Interval history: The patient states he does not feel well this morning. He was able to sleep overnight. He complains of a headache this morning. There is no apparent neurologic deficit. His color is not good. His saturations are normal. He is in no distress apart from the headache pain. Lab work is reviewed. His potassium is low this morning and supplementation was accordingly ordered Oxycodone /APAP was ordered for pain control. Exam Vital signs and Labs for Last 24 Hours: Temp Pulse Resp BP Pulse Ox 98.3 F 65 17 155/78 H 100 02/15/19 08:00 02/15/19 08:00 02/15/19 08:00 02/15/19 08:00 02/15/19 08:00 Laboratory Results - last 24 hr 02/13/19 14:00: Neutrophils % (Manual) 52, Lymphocytes % (Manual) 28, Monocytes % (Manual) 18 H, Metamyelocytes % 2.0 H 02/14/19 11:30: WBC 2.5 L, RBC 2.61 L, Hgb 8.8 L, Hct 26.9 L, MCV 102.9 H, MCH 33.8 H, MCHC 32.8, RDW 23.8 H, Plt Count 21 L* D, MPV 10.0, Neut % (Auto) 68.1, Lymph % (Auto) 26.4, [place] % (Auto) 5.2, Eos % (Auto) 0.1, Baso % (Auto) 0.1, Neut # (Auto) 1.7 L, Lymph # (Auto) 0.7, [place] # (Auto) 0.1, Eos # (Auto) 0.0, Baso # (Auto) 0.0 02/14/19 11:30: Sodium 143, Potassium 3.8, Chloride 108 H, Carbon Dioxide 25, Anion Gap 13.8, BUN 21 H, Creatinine 1.02 D, Estimated Creat Clear 77, Estimated GFR 71, Est GFR ( Amer) 86 D, Glucose 187 H D, Calcium 9.0, Total Bilirubin 0.4, AST 25 D, ALT 43 D, Alkaline Phosphatase 53, Total Protein 6.5, Albumin 2.7 L, Globulin 3.8 H, Albumin/Globulin Ratio 0.7 L 02/15/19 06:40: WBC 2.8 L, RBC 2.57 L, Hgb 8.4 L, Hct 26.3 L, MCV 102.6 H, MCH 32.8 H, MCHC 31.9, RDW 23.9 H, Plt Count 15 L* D, MPV 8.5, Neut % (Auto) 44.5, Lymph % (Auto) 44.4, [place] % (Auto) 10.9 H, Eos % (Auto) 0.1, Baso % (Auto) 0.1, Neut # (Auto) 1.2 L, Lymph # (Auto) 1.2, [place] # (Auto) 0.3, Eos # (Auto) 0.0, Baso # (Auto) 0.0 02/15/19 06:40: Sodium 145, Potassium 3.3 L, Chloride 109 H, Carbon Dioxide 25, Anion Gap 14.3, BUN 25 H, Creatinine 0.86, Estimated Creat Clear 79, Estimated GFR 87, Est GFR ( Amer) 105 D, Glucose 120 H D, Calcium 8.7, Total Bilirubin 0.6, AST 32 D, ALT 53, Alkaline Phosphatase 44 L, Total Protein 6.4, Albumin 2.8 L, Globulin 3.6 H, Albumin/Globulin Ratio 0.8 L I & O for Last 24 hours: Intake & Output 02/12/19 02/13/19 02/14/19 02/15/19 11:59 11:59 11:59 11:59 Intake Total 1166 / 1166 410 / 410 Output Total 900 / 900 1300 / 1300 Balance 266 / 266 -890 / -890 Weight 189 lb 2.506 oz 189 lb 2.506 oz Microbiology Reports for the Last 24 Hours: Microbiology 02/13/19 14:38 Blood Blood Culture - Preliminary - Constitutional mild distress - *Routine HEENT Exam Head: Present: normocephalic Eye: Present: PERRL ENT: Present: mucous membranes moist - *Routine Respiratory Exam Present: CTA bilaterally - *Routine Cardiovascular Exam Present: RRR - *Routine Abdominal Exam Present: soft - *Routine Extremities Exam Present: cyanosis (Mild). Absent: edema - *Routine Neurological Exam Present: alert, sensory deficit (Hearing deficit.). Absent: motor deficit Assessment and Plan (1) Chronic myelogenous leukemia Current visit: Yes Status: Acute Category: Medical Code(s): C92.10 - Chronic myeloid leukemia, BCR/ABL-positive, not having achieved remission (2) Neutropenic fever Current visit: No Status: Acute Category: Medical Code(s): D70.9 - Neutropenia, unspecified; R50.81 - Fever presenting with conditions classified elsewhere (3) Thrombocytopenia Current visit: Yes Status: Acute Category: Medical Code(s): D69.6 - Thrombocytopenia, unspecified (4) Hypertension Current visit: No Status: Chronic Qualifiers: Hypertension type: essential hypertension Qualified Code(s): I10 - Essential (primary) hypertension Category: Medical Code(s): I10 - Essential (primary) hypertension (5) Coronary artery disease Current visit: No Status: Chronic Qualifiers: Coronary Disease-Associated Artery/Lesion type: [place] artery [place] vs. transplanted heart: [place] heart Associated angina: without angina Qualified Code(s): I25.10 - Atherosclerotic heart disease of [place] coronary artery without angina pectoris Category: Medical Code(s): I25.10 - Atherosclerotic heart disease of [place] coronary artery without angina pectoris (6) Presence of stent in right coronary artery Current visit: No Status: Chronic Category: Medical Code(s): Z95.5 - Presence of coronary angioplasty implant and graft (7) Anemia Current visit: No Status: Chronic Category: Medical Code(s): D64.9 - Anemia, unspecified (8) Atrial fibrillation Current visit: No Status: Acute Qualifiers: Atrial fibrillation type: unspecified Qualified Code(s): I48.91 - Unspecified atrial fibrillation Category: Medical Code(s): I48.91 - Unspecified atrial fibrillation (9) HLD (hyperlipidemia) Current visit: No Status: Chronic Qualifiers: Hyperlipidemia type: mixed hyperlipidemia Qualified Code(s): E78.2 - Mixed hyperlipidemia Category: Medical Code(s): E78.5 - Hyperlipidemia, unspecified (10) Tinea unguium Current visit: Yes Status: Acute Category: Medical Code(s): B35.1 - Tinea unguium
[2019-02-15 12:28] LABS: Hematocrit 26.2 % (42.0-52.0); Hemoglobin 8.7 g/dL (14.1-18.0); Lymphocytes # 0.8 K/mm3 (0.7-4.5); Lymphocytes % 31.4 % (10-50); Mean Corpuscular HGB Conc 33.3 g/dL (31.8-35.4); Mean Corpuscular Volume 100.5 fl (80-94); Mean Platelet Volume 8.2 fl (7.4-10.4); Monocytes # 0.2 K/mm3 (0.1-1.0); Monocytes % 8.8 % (1.7-9.3); Neutrophils # 1.4 K/mm3 (1.8-7.8); Neutrophils % 59.8 % (37.0-80.0); Red Blood Count 2.61 M/mm3 (4.60-6.20); Red Cell Distribution Width 23.8 % (11.5-17.5); White Blood Count 2.4 K/mm3 (4.8-10.8)
[2019-02-15 12:30] LABS: Anion Gap 14.5 mEq/L (5-15); Calcium 8.9 mg/dL (8.5-10.1); Platelet Count 11 K/mm3 (142-424)
--- NOTE | 2019-02-15 12:49 | Progress Note ---
Internal Medicine - PN: Subj *Date: 02/15/19 *Time: 12:46 Interval history: See the prior note. The patient continued to do poorly and at one point he seemed to have weakness develop his right hand. He was poorly responsive. Rapid response was called on the patient. He was sent to CT for study. He seemed to regain his focal weakness but still had difficulty in response. The CT scan showed hemorrhage in the left posterior occipital parietal area with some bleeding into the left ventricle. There was significant cerebral edema as well. The CT scan was read by Dr. Valero. Dr. Crockett spoke to the neurologist at the [facility] (Dr. Schuler) Who approved transfer the patient. It was suggested that if possible we give fresh frozen plasma and platelets. These orders were placed along with 125 mg of Solu-Medrol IV. Arrangements are being made for helicopter transport. Exam Vital signs and Labs for Last 24 Hours: Temp Pulse Resp BP Pulse Ox 98.3 F 65 17 155/78 H 100 02/15/19 08:00 02/15/19 08:00 02/15/19 08:00 02/15/19 08:00 02/15/19 08:00 Laboratory Results - last 24 hr 02/13/19 14:00: Neutrophils % (Manual) 52, Lymphocytes % (Manual) 28, Monocytes % (Manual) 18 H, Metamyelocytes % 2.0 H 02/15/19 06:40: WBC 2.8 L, RBC 2.57 L, Hgb 8.4 L, Hct 26.3 L, MCV 102.6 H, MCH 32.8 H, MCHC 31.9, RDW 23.9 H, Plt Count 15 L* D, MPV 8.5, Neut % (Auto) 44.5, Lymph % (Auto) 44.4, [place] % (Auto) 10.9 H, Eos % (Auto) 0.1, Baso % (Auto) 0.1, Neut # (Auto) 1.2 L, Lymph # (Auto) 1.2, [place] # (Auto) 0.3, Eos # (Auto) 0.0, Baso # (Auto) 0.0 02/15/19 06:40: Sodium 145, Potassium 3.3 L, Chloride 109 H, Carbon Dioxide 25, Anion Gap 14.3, BUN 25 H, Creatinine 0.86, Estimated Creat Clear 79, Estimated GFR 87, Est GFR ( Amer) 105 D, Glucose 120 H D, Calcium 8.7, Total Bilirubin 0.6, AST 32 D, ALT 53, Alkaline Phosphatase 44 L, Total Protein 6.4, Albumin 2.8 L, Globulin 3.6 H, Albumin/Globulin Ratio 0.8 L 02/15/19 12:10: Sodium 144, Potassium 3.5, Chloride 107, Carbon Dioxide 26, Anion Gap 14.5, BUN 22 H, Creatinine 0.89, Estimated Creat Clear 79, Estimated GFR 84, Est GFR ( Amer) 101, Glucose 153 H D, Calcium 8.9 I & O for Last 24 hours: Intake & Output 02/13/19 02/14/19 02/15/19 02/16/19 11:59 11:59 11:59 11:59 Intake Total 1166 / 1166 410 / 410 Output Total 900 / 900 1300 / 1300 Balance 266 / 266 -890 / -890 Weight 189 lb 2.506 oz 189 lb 2.506 oz Microbiology Reports for the Last 24 Hours: Microbiology 02/13/19 14:38 Blood Blood Culture - Preliminary - Constitutional obtunded (Somewhat) - *Routine HEENT Exam Eye: Present: PERRL ENT: Present: mucous membranes moist - *Routine Respiratory Exam Present: CTA bilaterally - *Routine Cardiovascular Exam Present: RRR, irregular rhythm - *Routine Abdominal Exam Present: soft. Absent: tenderness - *Routine Extremities Exam Present: cyanosis. Absent: edema - *Routine Neurological Exam Present: altered mental status Slow to respond. Hand grasp in the right hand may be a bit decreased compared to left at the present time. Assessment and Plan (1) Acute CVA (cerebrovascular accident) Current visit: Yes Status: Acute Category: Medical Code(s): I63.9 - Cerebral infarction, unspecified (2) Chronic myelogenous leukemia Current visit: Yes Status: Acute Category: Medical Code(s): C92.10 - Chronic myeloid leukemia, BCR/ABL-positive, not having achieved remission (3) Neutropenic fever Current visit: No Status: Acute Category: Medical Code(s): D70.9 - Neutropenia, unspecified; R50.81 - Fever presenting with conditions classified elsewhere (4) Thrombocytopenia Current visit: Yes Status: Acute Category: Medical Code(s): D69.6 - Thrombocytopenia, unspecified (5) Hypertension Current visit: No Status: Chronic Qualifiers: Hypertension type: essential hypertension Qualified Code(s): I10 - Essential (primary) hypertension Category: Medical Code(s): I10 - Essential (primary) hypertension (6) Coronary artery disease Current visit: No Status: Chronic Qualifiers: Coronary Disease-Associated Artery/Lesion type: [place] artery [place] vs. transplanted heart: [place] heart Associated angina: without angina Qualified Code(s): I25.10 - Atherosclerotic heart disease of [place] coronary artery without angina pectoris Category: Medical Code(s): I25.10 - Atherosclerotic heart disease of [place] coronary artery without angina pectoris (7) Presence of stent in right coronary artery Current visit: No Status: Chronic Category: Medical Code(s): Z95.5 - Presence of coronary angioplasty implant and graft (8) Anemia Current visit: No Status: Chronic Category: Medical Code(s): D64.9 - Anemia, unspecified (9) Atrial fibrillation Current visit: No Status: Acute Qualifiers: Atrial fibrillation type: unspecified Qualified Code(s): I48.91 - Unspecified atrial fibrillation Category: Medical Code(s): I48.91 - Unspecified atrial fibrillation (10) HLD (hyperlipidemia) Current visit: No Status: Chronic Qualifiers: Hyperlipidemia type: mixed hyperlipidemia Qualified Code(s): E78.2 - Mixed hyperlipidemia Category: Medical Code(s): E78.5 - Hyperlipidemia, unspecified (11) Tinea unguium Current visit: Yes Status: Acute Category: Medical Code(s): B35.1 - Tinea unguium - Assessment and plan all Dx Assessment and Plan for all problems:: We are planning air transfer to the [facility]. He will receive Solu- Medrol IV and if possible we will administer fresh frozen plasma and platelets. Family is present and has been informed of the patient's situation.
--- NOTE | 2019-02-17 21:48 | Discharge Summary ---
General - General Admission date:: 02/13/19 Discharge date: 02/15/19 HPI HPI: Mr. Ji is a 73-year-old male who presented to our ED after having transfusion reaction from platelets. He has a known history of CML and gets chemo infusions 5 times a week and believes he is in cycle 5. He also take a chemo pill every night. He mentions that he gets platelet infusions once a month. He denies having any transfusion reaction in the past, however this time, he had some nausea and chills during this transfusion. He presented to our ED for further work-up. In the ED, his symptoms resolved with Solu-Medrol, Pepcid and Benadryl, however he was admitted to our hospital for observation. Hospital Course Hospital Course: Within the first 24 hours, the patient triggered for sepsis with a neutropenic fever of 102. Blood cultures were drawn at that time from his port, however no blood cultures were drawn from the peripheral blood until 02/14/2019. The patient was having shakes and chills but did not have any further nausea or vomiting episodes. He had some bleeding from his right great toe and had been on Xarelto for his A. fib. He is followed by Dr. Monge for his CML. He has been having declining memory and some syncopal episodes for the few weeks prior to admission. He had had an ultrasound of the carotids, an echo, and a CT of the head outpatient, which all turned out to be negative. The patient was started on Zosyn for neutropenic fever. He responded well to the medication. Podiatry was consulted for bleeding ingrown toenail assessment and to provide wound care. His potassium was low and was replaced. He was started on oxycodone/APAP for pain control. The patient did complain of a headache and began having some weakness in his right hand. He was poorly responsive and a rapid response was called. A head CT was ordered. It showed an acute intraparenchymal hemorrhage involving the left posterior parietal lobe and left occipital lobe with mild intraventricular extension and mild diffuse cerebral edema involving the left cerebral hemisphere. There was a mild midline shift. Dr. Crockett spoke with a neurologist at the [facility] who approved transfer for the patient. It was suggested that if possible, he be given fresh frozen plasma and platelets. These were ordered along with 125 mg of Solu-Medrol IV. The patient was transported to via helicopter. Objective Vital signs: Temp Pulse Resp BP Pulse Ox 98.4 F 58 L 16 145/64 H 98 02/15/19 13:40 02/15/19 13:40 02/15/19 13:40 02/15/19 13:40 02/15/19 13:40 Narrative: - Constitutional Comments: ill appearing - *Routine HEENT Exam Head: Present: normocephalic Eye: Present: EOMI, PERRL ENT: Present: mucous membranes dry - *Routine Neck Exam Present: supple. Absent: lymphadenopathy - *Routine Respiratory Exam Present: CTA bilaterally - *Routine Cardiovascular Exam Present: RRR - *Routine Abdominal Exam Present: soft, normoactive bowel sounds. Absent: tenderness - *Routine Extremities Exam Absent: cyanosis, clubbing, edema - *Routine Skin Exam Present: warm. Absent: rash Comments: Bleeding ingrown tail noted on right great toe - *Routine Neurological Exam Present: alert, oriented X3 Results Labs on day of discharge: Preliminary micro results at discharge 02/14/19 11:30 Blood Culture - Preliminary Blood Staphylococcus epidermidis 02/13/19 14:38 Blood Culture - Preliminary Blood Staphylococcus capitis DS: Diagnosis - Discharge Diagnosis (1) Acute CVA (cerebrovascular accident) Status: Acute (2) Chronic myelogenous leukemia Status: Acute (3) Neutropenic fever Status: Acute (4) Thrombocytopenia Status: Acute (5) Hypertension Status: Chronic (6) Coronary artery disease Status: Chronic (7) Presence of stent in right coronary artery Status: Chronic (8) Anemia Status: Chronic (9) Atrial fibrillation Status: Acute (10) HLD (hyperlipidemia) Status: Chronic (11) Tinea unguium Status: Acute Discharge Plan - Patient Discharge Instructions ACTIVITY: Limited activity, Other DIET: other Patient Instructions: DI for Stroke-Intracerebral Hemorrhage Forms: Transfer Record - Follow up Plan Follow up with: Eduardo Sosa MD [Primary Care Provider] - 2 weeks Disposition: Xfer Short-Term Hosp Home Medications: Home Medications Medication Instructions Recorded Confirmed Type Cholecalciferol (Vitamin D3) [D3 2,000 unit PO HS 03/28/17 02/13/19 History Dots] acyclovir 400 mg tablet 400 mg PO TID 08/13/17 02/13/19 History hzzqapbf-ysn-kergc acid 300 1 tab PO HS tab 05/29/18 11/29/19 History mcg-lycopene 600 mcg-lutein 300 mcg tablet ondansetron HCl 4 mg tablet 8 mg PO Q8HP PRN 08/05/18 02/14/19 History Venetoclax [Venclexta] 200 mg PO HS 09/08/18 02/13/19 History azaCITIDine [Azacitidine] 160 mg IV DIRECTED 09/10/18 02/13/19 History atorvastatin 40 mg tablet 40 mg PO DAILY #30 tab 09/26/18 02/13/19 Rx Potassium 20 meq PO DAILY 10/02/18 02/13/19 History Bisoprolol Fumarate 5 mg PO DAILY 02/13/19 02/13/19 History Polyethylene Glycol 3350 [Miralax 17 gm PO DAILY 02/13/19 02/13/19 History 17gm Packet] 0.9 % Sodium Chloride [Sodium 8 ml IV NEEDED PRN vial 02/15/19 Rx Chloride 0.9% 10mL Vial] Prescriptions/Medication Reconciliation: New 0.9 % Sodium Chloride [Sodium Chloride 0.9% 10mL Vial] 8 ml IV NEEDED PRN vial PRN Reason: dilute pepcid Continued acyclovir 400 mg tablet 400 mg PO TID fhcrnavi-ips-erzir acid 300 mcg-lycopene 600 mcg-lutein 300 mcg tablet 1 tab PO HS tab atorvastatin 40 mg tablet 40 mg PO DAILY #30 tab ondansetron HCl 4 mg tablet 8 mg PO Q8HP PRN PRN Reason: Nausea Cholecalciferol (Vitamin D3) [D3 Dots] 2,000 unit PO HS Potassium 20 meq PO DAILY Bisoprolol Fumarate 5 mg PO DAILY Polyethylene Glycol 3350 [Miralax 17gm Packet] 17 gm PO DAILY Venetoclax [Venclexta] 200 mg PO HS azaCITIDine [Azacitidine] 160 mg IV DIRECTED Discontinued Aspirin [Aspirin 81mg EC Tab] 81 mg PO DAILY Fluconazole [Diflucan] 400 mg PO DAILY Rivaroxaban [Xarelto] 20 mg PO DAILY levoFLOXacin [Levaquin 500mg tab] 500 mg PO DAILY - Problem Reconciliation Problems Reviewed?: Yes
== END 2019-02-15 13:47 | disposition short-term general hospital (02) | DRG 811 ==
LOC: ER 13:50 → 2ND 13:50 → OBSVTOIN 17:22 → 2ND 17:22
PROVIDERS: ADMIT Emergency Medicine; ATTEND Family Medicine
CPT/HCPCS: 36430; 70450; 71020; 71046; 80048; 80053; 80061; 81001; 82962; 83735; 83880; 84100; 84443; 84484; 85007; 85025; 85049; 86078; 86900; 86901; 87040; 87077; 87086; 87186; 93458; 96374; 96375; 99152; 99284; C1725; C1769; G0378; G0463; J1642; J1644; J2543; P9034; Q9967

== ENCOUNTER 2019-03-16 15:15 | Observation (INO) ==
--- NOTE | 2019-03-16 15:21 | Emergency Department Note ---
ED Disposition Attestation: On , the high probability of a clinically significant, sudden or life threatening deterioration of the following system(s) required my full and direct attention, intervention and personal management. The time I documented below is in addition to time spent performing reported procedures but includes the following listed in this critical care notation. General Adult HPI - General Stated complaint: bleeding Time Seen by Provider: 03/16/19 15:18 Mode of Arrival: EMS - Related Data Home Medications Medication Instructions Recorded Confirmed Cholecalciferol (Vitamin D3) [D3 2,000 unit PO HS 03/28/17 02/13/19 Dots] acyclovir 400 mg tablet 400 mg PO TID 08/13/17 02/13/19 tdxybrfo-cpw-jbfrm acid 300 1 tab PO HS tab 08/13/17 02/13/19 mcg-lycopene 600 mcg-lutein 300 mcg tablet ondansetron HCl 4 mg tablet 8 mg PO Q8HP PRN 08/05/18 02/14/19 Venetoclax [Venclexta] 200 mg PO HS 09/08/18 02/13/19 azaCITIDine [Azacitidine] 160 mg IV DIRECTED 09/10/18 02/13/19 Potassium 20 meq PO DAILY 10/02/18 02/13/19 Polyethylene Glycol 3350 [Miralax 17 gm PO DAILY 02/13/19 02/13/19 17gm Packet] bisoproloL fumarate [Bisoprolol 5 mg PO DAILY 02/13/19 02/13/19 Fumarate] Previous Rx's Medication Instructions Recorded atorvastatin 40 mg tablet 40 mg PO DAILY #30 tab 09/26/18 0.9 % Sodium Chloride [Sodium 8 ml IV NEEDED PRN vial 02/15/19 Chloride 0.9% 10mL Vial] Cefdinir [Omnicef 300mg Capsule] 300 mg PO BID #20 cap 03/12/19 Allergies Allergy/AdvReac Type Severity Reaction Status Date / Time No Known Allergies Allergy Verified 02/03/19 10:03 [facility] History - Hepatitis A Screen Attestation statement:: This patient has been screened for Hepatitis A risk factors. I have reviewed the patient's past medical history: Yes Medical History: Reports:: Arrhythmia, Atherosclerotic Heart Disease, Atrial Fibrillation, Cancer, Coronary Artery Disease, Hyperlipidemia, Hypertension Denies:: Diabetes Mellitus Type 1, Diabetes Mellitus Type 2, Internal Pacemaker, MRSA, Seizures Other Medical History: Reports: Chemotherapy, Hoarseness. Denies: Blood Transfusion Reaction Other Surgeries: Yes: Appendectomy, Cardiac Catheterization, Colonoscopy, Coronary Stent, Other (left chest port implanted). No: Pacemaker Amputation: No Fractures: No Comment: Port inserted - Social History Smoking Status: Never smoker Tobacco Type: cigarettes # Packs/Day (cigarettes): 2 Alcohol Intake: never Alcohol Intake Frequency:: holidays/special occasions only Substance Use Type: denies use Occupational Status: retired Housing: alf Household Members: spouse Family Hx:: Heart Attack, Stroke Physical Exam - General General appearance: alert, in no apparent distress - Head Head exam: atraumatic, normocephalic, normal inspection - Eye Eye exam: Present: normal appearance, PERRL, EOMI - ENT ENT exam: Present: normal exam, normal oropharynx, mucous membranes moist, normal external ear exam - Neck Neck exam: Present: normal inspection, full ROM, trachea midline. Absent: meningismus, lymphadenopathy - Chest Chest inspection: Present: normal inspection, symmetric chest wall rise. Absent: tenderness - Respiratory Respiratory exam: Present: normal lung sounds bilaterally. Absent: respiratory distress - Cardiovascular Cardiovascular exam: Present: regular rate, normal rhythm, systolic murmur. Absent: JVD - Abdominal Exam Abdominal exam: Present: soft, normal bowel sounds. Absent: distention, tenderness, guarding - Extremities Exam Extremities exam: Present: normal inspection, full ROM, normal capillary refill. Absent: calf tenderness - Back Exam Back exam: Present: normal inspection. Absent: tenderness - Neurological Exam Neurological exam: Present: alert, oriented X3, CN II-XII intact. Absent: motor sensory deficit - Psychiatric Psychiatric exam: Present: normal affect, normal mood - Skin Skin exam: Present: warm, dry, intact, normal color
--- NOTE | 2019-03-16 15:41 | Emergency Department Note ---
ED Disposition Clinical Impression: Thrombocytopenia Disposition: Admitted As Inpatient Condition on Discharge: Serious Referrals: Provider,MD Christina [Referring] - Time of Disposition: 17:08 - Critical Care Critical Care Time: No Attestation: On 03/16/19, the high probability of a clinically significant, sudden or life threatening deterioration of the following system(s) required my full and direct attention, intervention and personal management. The time I documented below is in addition to time spent performing reported procedures but includes the following listed in this critical care notation. Medical Decision Making - Medical Records Medical records reviewed: Yes: I reviewed the patient's medical records. - Ravin Inquiry Pt receiving controlled substance: No Vital Signs: 03/16/19 15:23 03/16/19 16:59 Temperature 98.6 F Temperature Source Oral Pulse Rate [Left Radial] 76 76 Respiratory Rate 16 Blood Pressure [Right Arm] 160/90 H 147/80 H Blood Pressure Mean [Right Arm] 113 102 Blood Pressure Source [Right Arm] Automatic Cuff Blood Pressure Position [Right Arm] Sitting Supine 02 Sat by Pulse Oximetry 98 99 Oxygen Delivery Method Room Air Room Air - Lab Data Lab results reviewed: Yes: I reviewed the patient's lab results. Lab Results 03/16/19 15:45: WBC 3.1 L, RBC 2.81 L, Hgb 9.7 L, Hct 31.6 L, MCV 112.3 H, MCH 34.5 H, MCHC 30.7 L, RDW 25.6 H*, Plt Count 40 L*, MPV 8.7, Neut % (Auto) 56.9, Lymph % (Auto) 32.6, [place] % (Auto) 9.5 H, Eos % (Auto) 0.7, Baso % (Auto) 0.2, Neut # (Auto) 1.8, Lymph # (Auto) 1.0, [place] # (Auto) 0.3, Eos # (Auto) 0.0, Baso # (Auto) 0.0 03/16/19 15:45: PT 11.2, INR 1.08, APTT 25.0 03/16/19 15:45: Sodium 142, Potassium 4.1, Chloride 106, Carbon Dioxide 27, Anion Gap 13.1, BUN 18, Creatinine 0.86, Estimated Creat Clear 100, Estimated GFR 87, Est GFR ( Amer) 105, Glucose 103, Calcium 9.3, Total Bilirubin 0.4, AST 31, ALT 59, Alkaline Phosphatase 57, Total Protein 6.2 L, Albumin 3.1 L , Globulin 3.1, Albumin/Globulin Ratio 1.0 L Result diagrams: 03/16/19 15:45 03/16/19 15:45 Orders (Tests/Meds): ORDERS Category Date Time Status CT abdomen pelvis wo con Stat Cat Scan 03/16/19 15:34 Taken Urinalysis and Microscopic Stat Lab 03/16/19 16:53 Received - CT Data CT Scan: Abdomen, Pelvis Time Received: 17:09 Preliminary Findings: Normal/NAD - Physician Consults Physician Consulted: Dr. Crockett for Dr. Sosa Time: 17:10 Reason -: Admission Comment/Response: Patient to be admitted for thrombocytopenia. Male Urogenital HPI - General Chief complaint: Urogenital-Male Stated complaint: bleeding Time Seen by Provider: 03/16/19 15:18 Mode of Arrival: EMS Limitations: Language Barrier Description of Symptoms (Recalled from ER Triage Doc. by RN): to ed per squad pt resident of [facility] sent for eval due to bleeding from penis. pt seen 4 days ago with same. pt with hx of cva - History of Present Illness HPI Narrative: 73-year-old male coming from a alf due to complaints of gross hematuria. Onset (ago): day(s) (1) Duration: constant Location: penis Severity: moderate Relieving factors: none Exacerbating factors: none - Related Data Home Medications Medication Instructions Recorded Confirmed Cholecalciferol (Vitamin D3) [D3 2,000 unit PO HS 03/28/17 02/13/19 Dots] acyclovir 400 mg tablet 400 mg PO TID 08/13/17 02/13/19 wyuhnuzf-wgv-awkud acid 300 1 tab PO HS tab 08/13/17 02/13/19 mcg-lycopene 600 mcg-lutein 300 mcg tablet ondansetron HCl 4 mg tablet 8 mg PO Q8HP PRN 08/05/18 02/14/19 Venetoclax [Venclexta] 200 mg PO HS 09/08/18 02/13/19 azaCITIDine [Azacitidine] 160 mg IV DIRECTED 09/10/18 02/13/19 Potassium 20 meq PO DAILY 07/18/19 11/29/19 Polyethylene Glycol 3350 [Miralax 17 gm PO DAILY 02/13/19 02/13/19 17gm Packet] bisoproloL fumarate [Bisoprolol 5 mg PO DAILY 02/13/19 02/13/19 Fumarate] Previous Rx's Medication Instructions Recorded atorvastatin 40 mg tablet 40 mg PO DAILY #30 tab 09/26/18 0.9 % Sodium Chloride [Sodium 8 ml IV NEEDED PRN vial 02/15/19 Chloride 0.9% 10mL Vial] Cefdinir [Omnicef 300mg Capsule] 300 mg PO BID #20 cap 03/12/19 Allergies Allergy/AdvReac Type Severity Reaction Status Date / Time No Known Allergies Allergy Verified 02/03/19 10:03 [facility] History - Hepatitis A Screen Drug use history?: No High risk sexual behaviors?: No History of sexually transmitted infection?: No Currently employed?: No Childcare worker?: No Do you have indoor plumbing?: Yes Do you have electricity?: Yes Attestation statement:: This patient has been screened for Hepatitis A risk factors. I have reviewed the patient's past medical history: Yes Medical History: Reports:: Arrhythmia, Atherosclerotic Heart Disease, Atrial Fibrillation, Cancer, Coronary Artery Disease, Hyperlipidemia, Hypertension Denies:: Diabetes Mellitus Type 1, Diabetes Mellitus Type 2, Internal Pacemaker, MRSA, Seizures Other Medical History: Reports: Chemotherapy, Hoarseness. Denies: Blood Transfusion Reaction Other Surgeries: Yes: Appendectomy, Cardiac Catheterization, Colonoscopy, Coronary Stent, Other (left chest port implanted). No: Pacemaker Amputation: No Fractures: No Comment: Port inserted - Social History Smoking Status: Never smoker Tobacco Type: cigarettes # Packs/Day (cigarettes): 2 Alcohol Intake: never Alcohol Intake Frequency:: holidays/special occasions only Substance Use Type: denies use Occupational Status: retired Housing: alf Household Members: spouse Family Hx:: Heart Attack, Stroke ROS Obtained: Yes Systems reviewed as appropriate & no additional complaints - Constitutional Constitutional: Reports malaise - Eyes Eyes: Reports system reviewed and no additional complaints, except as docu - ENT Ears, Nose, Mouth, and Throat: Reports system reviewed and no additional complaints, except as docu - Cardiovascular Cardiovascular: Reports system reviewed and no additional complaints, except as docu - Respiratory Respiratory: Yes system reviewed and no additional complaints, except as docu - Gastrointestinal Gastrointestingal: Reports: system reviewed and no additional complaints, except as docu - Genitourinary Male Genitourinary: Reports hematuria - Musculoskeletal Musculoskeletal: Reports system reviewed and no additional complaints, except as docu - Integumentary/Breasts Skin/Breast: Reports system reviewed and no additional complaints, except as d ocu - Neurologic Neurologic: Reports system reviewed and no additional complaints, except as docu - Endocrine Endocrine: Reports system reviewed and no additional complaints, except as docu - Hematologic/Lymphatic Henatologic/Lymphatic: Reports system reviewed and no additional complaints, except as docu - Allergic/Immunologic Allergic/Immunologic: Reports system reviewed and no additional complaints, except as docu Physical Exam - General General appearance: alert, in no apparent distress - Head Head exam: atraumatic, normocephalic, normal inspection - Eye Eye exam: Present: normal appearance, PERRL, EOMI - ENT ENT exam: Present: normal exam, normal oropharynx, mucous membranes moist, normal external ear exam - Neck Neck exam: Present: normal inspection, full ROM, trachea midline. Absent: meningismus, lymphadenopathy - Chest Chest inspection: Present: normal inspection, symmetric chest wall rise. Absent: tenderness - Respiratory Respiratory exam: Present: normal lung sounds bilaterally. Absent: respiratory distress - Cardiovascular Cardiovascular exam: Present: regular rate, normal rhythm. Absent: JVD - Abdominal Exam Abdominal exam: Present: soft, normal bowel sounds. Absent: distention, tenderness, guarding - Extremities Exam Extremities exam: Present: normal inspection, full ROM, normal capillary refill. Absent: calf tenderness - Back Exam Back exam: Present: normal inspection. Absent: tenderness - Neurological Exam Neurological exam: Present: alert, CN II-XII intact, normal gait. Absent: motor sensory deficit - Expanded Neurological Exam Patient oriented to: Present: person, place. Absent: time - Psychiatric Psychiatric exam: Present: normal affect, normal mood - Skin Skin exam: Present: warm, dry, intact, normal color
[2019-03-16 15:57] LABS: Basophils % 0.2 % (0.1-2.0); Eosinophils % 0.7 % (0.1-12.0); Hematocrit 31.6 % (42.0-52.0); Hemoglobin 9.7 g/dL (14.1-18.0); Lymphocytes % 32.6 % (10-50); Mean Corpuscular HGB Conc 30.7 g/dL (31.8-35.4); Mean Corpuscular Volume 112.3 fl (80-94); Mean Platelet Volume 8.7 fl (7.4-10.4); Monocytes # 0.3 K/mm3 (0.1-1.0); Monocytes % 9.5 % (1.7-9.3); Neutrophils # 1.8 K/mm3 (1.8-7.8); Neutrophils % 56.9 % (37.0-80.0); Platelet Count 40 K/mm3 (142-424); Red Blood Count 2.81 M/mm3 (4.60-6.20); Red Cell Distribution Width 25.6 % (11.5-17.5); White Blood Count 3.1 K/mm3 (4.8-10.8)
[2019-03-16 16:03] LABS: INR 1.08 (0.9-1.1); Prothrombin Time 11.2 seconds (9.4-11.8)
[2019-03-16 16:08] LABS: Albumin Level 3.1 gm/dL (3.4-5.0); Anion Gap 13.1 mEq/L (5-15); Bilirubin,Total 0.4 mg/dL (0.2-1.0); Calcium 9.3 mg/dL (8.5-10.1); Globulin 3.1 gm/dl (1.3-3.2); Total Protein,Serum 6.2 gm/dL (6.4-8.2)
[2019-03-16 16:56] LABS: Microscopic, Urine URINE MICROSCOPIC (MICROSCOPIC)
[2019-03-16 17:20] LABS: Appearance,Urine CLEAR (Clear); Bilirubin,Urine Negative (Negative); Blood, Urine 3+ (Negative); Color,Urine YELLOW (Yellow); Glucose,Urine (UA) Negative (Negative); Ketones,Urine Negative (Negative); Leukocyte Esterase,Urine Negative (Negative); Protein,Urine Negative (Negative); Urobilinogen,Urine 0.2 EU/dl (0.2)
[2019-03-16 17:36] LABS: RBC,Urine 20-50 #/hpf (0-3)
--- NOTE | 2019-03-16 18:17 | Progress Note ---
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 Patient has been catheterized numerous times recently and has actually pulled his catheter out a few times. He was recently seen in the ER and reported had a positive blood culture from that visit. He and his family are considering Hospice care. Exam Vital signs and Labs for Last 24 Hours: Temp Pulse Resp BP Pulse Ox 98.6 F 76 18 150/84 H 96 03/16/19 17:28 03/16/19 17:37 03/16/19 17:28 03/16/19 17:37 03/16/19 17:37 Laboratory Results - last 24 hr 03/16/19 15:45: WBC 3.1 L, RBC 2.81 L, Hgb 9.7 L, Hct 31.6 L, MCV 112.3 H, MCH 34.5 H, MCHC 30.7 L, RDW 25.6 H*, Plt Count 40 L*, MPV 8.7, Neut % (Auto) 56.9, Lymph % (Auto) 32.6, [place] % (Auto) 9.5 H, Eos % (Auto) 0.7, Baso % (Auto) 0.2, Neut # (Auto) 1.8, Lymph # (Auto) 1.0, [place] # (Auto) 0.3, Eos # (Auto) 0.0, Baso # (Auto) 0.0 03/16/19 15:45: PT 11.2, INR 1.08, APTT 25.0 03/16/19 15:45: Sodium 142, Potassium 4.1, Chloride 106, Carbon Dioxide 27, Ani on Gap 13.1, BUN 18, Creatinine 0.86, Estimated Creat Clear 100, Estimated GFR 87, Est GFR ( Amer) 105, Glucose 103, Calcium 9.3, Total Bilirubin 0.4, AST 31, ALT 59, Alkaline Phosphatase 57, Total Protein 6.2 L, Albumin 3.1 L, Globulin 3.1, Albumin/Globulin Ratio 1.0 L 03/16/19 16:53: Urine Color Yellow, Urine Appearance Clear, Urine pH 6.0, Ur Specific [place] 1.010, Urine Protein Negative, Urine Glucose (UA) Negative, Urine Ketones Negative, Urine Blood 3+, Urine Nitrate Negative, Urine Bilirubin Negative, Urine Urobilinogen 0.2, Ur Leukocyte Esterase Negative, Urine RBC 20- 50, Ur Squamous Epith Cells 3-5 I & O for Last 24 hours: Intake & Output 03/13/19 03/14/19 03/15/19 03/16/19 23:59 23:59 23:59 23:59 Weight 240 lb - Constitutional no acute distress (conversant) - *Routine Neurological Exam Present: alert, oriented X3 Assessment and Plan (1) Hematuria Current visit: Yes Status: Acute Category: Medical Code(s): R31.9 - Hematuria, unspecified (2) Thrombocytopenia Current visit: Yes Status: Acute Category: Medical Code(s): D69.6 - Thrombocytopenia, unspecified (3) Chronic myelogenous leukemia Current visit: No Status: Acute Category: Medical Code(s): C92.10 - Chronic myeloid leukemia, BCR/ABL-positive, not having achieved remission - Assessment and plan all Dx Assessment and Plan for all problems:: Patient to be admitted for Urology evaluation and platelet transfusion. Patient agrees to Hospice care at time of discharge. Dr. Crockett will be following patient in my absence.
[2019-03-17 06:30] LABS: Basophils % 0.1 % (0.1-2.0); Eosinophils % 0.9 % (0.1-12.0); Hematocrit 30.9 % (42.0-52.0); Hemoglobin 9.5 g/dL (14.1-18.0); Lymphocytes # 1.1 K/mm3 (0.7-4.5); Mean Corpuscular HGB Conc 30.7 g/dL (31.8-35.4); Mean Corpuscular Volume 112.4 fl (80-94); Mean Platelet Volume 7.2 fl (7.4-10.4); Monocytes # 0.3 K/mm3 (0.1-1.0); Monocytes % 9.7 % (1.7-9.3); Neutrophils # 1.4 K/mm3 (1.8-7.8); Neutrophils % 50.2 % (37.0-80.0); Red Blood Count 2.75 M/mm3 (4.60-6.20); White Blood Count 2.8 K/mm3 (4.8-10.8)
[2019-03-17 06:31] LABS: Platelet Count 36 K/mm3 (142-424); Red Cell Distribution Width 25.3 % (11.5-17.5)
[2019-03-17 06:41] LABS: Albumin/Globulin Ratio 1.1 (1.1-1.8); Anion Gap 12.4 mEq/L (5-15); Bilirubin,Total 0.5 mg/dL (0.2-1.0); Calcium 8.7 mg/dL (8.5-10.1); Chol/HDL Ratio 2.7 (1-3.5); Globulin 2.8 gm/dl (1.3-3.2); Phosphorous 3.7 mg/dL (2.4-4.9); Total Protein,Serum 5.8 gm/dL (6.4-8.2)
--- NOTE | 2019-03-17 08:33 | History & Physical Report ---
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 Patient was hospitalized at [facility] from February 15 to February following the stroke after which he went to [facility] for rehab. He was discharged from [facility] March 10, 2019 to [facility] for ongoing rehab. Patient was catheterized numerous times recently in the [facility] and had actually pulled his catheter out a few times. He was recently seen in the ER and reportedly had a positive blood culture from that visit. Evaluation in the emergency room platelet count was found to be 40,000. He was admitted with a urology consult and for platelet administration. Platelets will be administered upon arrival. This morning patient states he feels fine. He states he slept. He has remained n.p.o. for urology consult. He denies chest pain or shortness of breath. stayed with him throughout the night. He has voided several times and no hematuria has been noted. [facility] History Medical History: Reports:: Arrhythmia, Atherosclerotic Heart Disease, Atrial Fibrillation, Cancer, Coronary Artery Disease, Cerebrovascular Accident, Diabetes Mellitus Type 2, Heart Murmur, Hyperlipidemia, Hypertension Denies:: Diabetes Mellitus Type 1, Internal Pacemaker, MRSA, Seizures *Have you ever received a pneumonia vaccine?: Yes *Have you received a flu vaccine this season?: Yes Other Medical History: Reports: Anemia, Chemotherapy, Hoarseness. Denies: Blood Transfusion Reaction Comment:: Thrombocytopenia; AML; acute ischemic left posterior cerebral artery stroke due to ICH. Other Surgeries: Yes: Appendectomy, Cardiac Catheterization, Colonoscopy, Coronary Stent, Other (left chest port implanted). No: Pacemaker Amputation: No Fractures: No - *Social History Educational Level: Completed High School Smoking Status: Unknown if ever smoked Alcohol Intake Frequency:: holidays/special occasions only Substance Use Type: denies use *Occupational Status:: retired Housing: [facility] Household Members: spouse *Travel in the last 8 weeks: None Family Hx:: Cancer, Heart Attack, Stroke Review of Systems - Constitutional Denies chills, Denies headache(s) - Eyes Reports change in vision - ENT Denies ear pain, Denies headache(s), Denies sore throat - *Cardiovascular Denies chest pain, Denies shortness of breath, Denies irregular heart rhythm - *Respiratory Denies chest congestion, Denies cough, Denies shortness of breath, Denies coughing up blood - *Gastrointestinal Denies abdominal pain, Denies change in bowel habits, Denies change in stools, Denies loose stools, Denies heartburn, Denies vomiting blood, Denies bright, red blood in stools, Denies black, tarry stools, Denies nausea, Denies vomiting - *Genitourinary Reports blood in urine, Denies difficulty urinating, Denies painful urination - *Musculoskeletal Comments: Patient mostly was up in a chair at the [facility]. He was able to take a few steps with assistance with a walker. - *Neurologic Reports confusion, Reports dizziness, Reports weakness Meds Home Medications Medication Instructions Recorded Confirmed Type Cholecalciferol (Vitamin D3) [D3 2,000 unit PO HS 03/28/17 03/16/19 History Dots] gwymximj-nxj-frwpm acid 300 1 tab PO HS tab 08/13/17 03/16/19 History mcg-lycopene 600 mcg-lutein 300 mcg tablet ondansetron HCl 4 mg tablet 8 mg PO Q8HP PRN 08/05/18 03/17/19 History Potassium 20 meq PO DAILY 10/02/18 03/17/19 History Polyethylene Glycol 3350 [Miralax 17 gm PO DAILY 02/13/19 03/17/19 History 17gm Packet] Bisoprolol Fumarate [Bisoprolol 5 mg PO DAILY 03/16/19 03/17/19 History 5mg Tablet] Cefdinir [Omnicef 300mg Capsule] 300 mg PO BID 03/16/19 03/17/19 History Finasteride [Proscar] 5 mg PO DAILY 03/16/19 03/17/19 History Fluconazole [Diflucan] 200 mg PO DAILY 03/16/19 03/17/19 History Melatonin/Pyridoxine HCl (B6) 1 each PO HS 03/16/19 03/17/19 History [Melatonin 3 mg Tablet] Metoprolol Tartrate [Lopressor 12.5 mg PO BID 03/16/19 03/17/19 History 25mg tablet] Mirtazapine [Remeron 15mg tablet] 7.5 mg PO HS 03/16/19 03/17/19 History Trazodone HCl 50 mg PO HS PRN 03/16/19 03/16/19 History levoFLOXacin [Levaquin 500mg 500 mg PO DAILY 03/16/19 03/17/19 History tab] Acetaminophen 500 mg PO Q4HP PRN 03/17/19 03/17/19 History Acyclovir 400 mg PO TID 03/17/19 03/17/19 History Atorvastatin Calcium [Lipitor 40mg 40 mg PO HS 03/17/19 03/16/19 History Tablet] Bisacodyl [Dulcolax 10mg Supp] 10 mg RC DAILYP PRN 03/17/19 03/17/19 History Sennosides/Docusate Sodium [Senna 2 each PO NEEDED PRN 03/17/19 03/17/19 History Plus 8.6-50 mg Tablet] Allergies Allergy/AdvReac Type Severity Reaction Status Date / Time No Known Allergies Allergy Verified 02/03/19 10:03 Exam Vital signs and Labs for Last 24 Hours: Temp Pulse Resp BP Pulse Ox 98.1 F 82 18 136/81 98 03/17/19 07:53 03/17/19 07:53 03/17/19 07:53 03/17/19 07:53 03/17/19 07:53 Laboratory Results - last 24 hr 03/16/19 15:45: WBC 3.1 L, RBC 2.81 L, Hgb 9.7 L, Hct 31.6 L, MCV 112.3 H, MCH 34.5 H, MCHC 30.7 L, RDW 25.6 H*, Plt Count 40 L*, MPV 8.7, Neut % (Auto) 56.9, Lymph % (Auto) 32.6, [place] % (Auto) 9.5 H, Eos % (Auto) 0.7, Baso % (Auto) 0.2, Neut # (Auto) 1.8, Lymph # (Auto) 1.0, [place] # (Auto) 0.3, Eos # (Auto) 0.0, Baso # (Auto) 0.0 03/16/19 15:45: PT 11.2, INR 1.08, APTT 25.0 03/16/19 15:45: Sodium 142, Potassium 4.1, Chloride 106, Carbon Dioxide 27, Anion Gap 13.1, BUN 18, Creatinine 0.86, Estimated Creat Clear 100, Estimated GFR 87, Est GFR ( Amer) 105, Glucose 103, Calcium 9.3, Total Bilirubin 0.4, AST 31, ALT 59, Alkaline Phosphatase 57, Total Protein 6.2 L, Albumin 3.1 L , Globulin 3.1, Albumin/Globulin Ratio 1.0 L 03/16/19 16:53: Urine Color Yellow, Urine Appearance Clear, Urine pH 6.0, Ur Specific [place] 1.010, Urine Protein Negative, Urine Glucose (UA) Negative, Urine Ketones Negative, Urine Blood 3+, Urine Nitrate Negative, Urine Bilirubin Negative, Urine Urobilinogen 0.2, Ur Leukocyte Esterase Negative, Urine RBC 20- 50, Ur Squamous Epith Cells 3-5 03/16/19 17:17: Blood Type O Positive 03/17/19 06:23: WBC 2.8 L, RBC 2.75 L, Hgb 9.5 L, Hct 30.9 L, MCV 112.4 H, MCH 34.5 H, MCHC 30.7 L, RDW 25.3 H*, Plt Count 36 L*, MPV 7.2 L, Neut % (Auto) 50.2, Lymph % (Auto) 39.0, [place] % (Auto) 9.7 H, Eos % (Auto) 0.9, Baso % (Auto) 0.1, Neut # (Auto) 1.4 L, Lymph # (Auto) 1.1, [place] # (Auto) 0.3, Eos # (Auto) 0.0, Baso # (Auto) 0.0 03/17/19 06:23: Sodium 143, Potassium 3.4 L, Chloride 107, Carbon Dioxide 27, Anion Gap 12.4, BUN 14, Creatinine 0.75, Estimated Creat Clear 73, Estimated GFR 102, Est GFR ( Amer) 123, Glucose 97, Calcium 8.7, Phosphorus 3.7, Magnesium 1.7, Total Bilirubin 0.5, AST 30, ALT 53, Alkaline Phosphatase 51, Total Protein 5.8 L, Albumin 3.0 L, Globulin 2.8, Albumin/Globulin Ratio 1.1, Triglycerides 95, Cholesterol 121 L, LDL Cholesterol 57, VLDL Cholesterol 19, HDL Cholesterol 45, Cholesterol/HDL Ratio 2.7 I & O for Last 24 hours: Intake & Output 03/14/19 03/15/19 03/16/19 03/17/19 11:59 11:59 11:59 11:59 Intake Total 467 / 467 Output Total 2300 / 2300 Balance -1833 / -1833 Weight 176 lb 7 oz Radiology Reports for the Last 24 Hours: 03/16/2019 CT of abdomen and pelvis IMPRESSION: Nonobstructing calculus lower pole right kidney along with moderate sized peripelvic cyst right kidney, there is no obstructive uropathy of either kidney - Constitutional no acute distress - *Routine HEENT Exam Head: Present: normocephalic, atraumatic Eye: Present: PERRL. Absent: conjunctival icterus, scleral injection ENT: Present: mucous membranes moist, oropharynx clear - *Routine Neck Exam Present: supple. Absent: carotid bruit, lymphadenopathy, thyromegaly - *Routine Respiratory Exam Present: CTA bilaterally (Anteriorly and posteriorly) - *Routine Cardiovascular Exam Present: RRR - *Routine Abdominal Exam Present: soft, normoactive bowel sounds. Absent: tenderness, distended - *Routine Extremities Exam Present: pulses intact. Absent: edema, calf tenderness - *Routine Neurological Exam Present: alert, oriented X3 Assessment and Plan (1) Hematuria Current visit: Yes Status: Acute Category: Medical Code(s): R31.9 - Hematuria, unspecified (2) Thrombocytopenia Current visit: Yes Status: Acute Category: Medical Code(s): D69.6 - Thrombocytopenia, unspecified (3) Chronic myelogenous leukemia Current visit: No Status: Acute Category: Medical Code(s): C92.10 - Chronic myeloid leukemia, BCR/ABL-positive, not having achieved remission (4) Status post cerebrovascular accident Current visit: Yes Status: Chronic Category: Medical Code(s): Z86.73 - Personal history of transient ischemic attack (TIA), and cerebral infarction without residual deficits (5) Hypokalemia Current visit: No Status: Acute Category: Medical Code(s): E87.6 - Hypokalemia - Assessment and plan all Dx Assessment and Plan for all problems:: We will administer platelets upon arrival. But will see patient today. Request hospice.
--- NOTE | 2019-03-17 09:04 | Pharmacy Consult Notes ---
[facility] Pharmacy VTE Monitoring - Patient Demographics Admission date: 03/17/19 Report Date: 03/17/19 Time: 09:04 Allergies/Adverse Reactions: Patient Allergies No Known Allergies Allergy (Verified 02/03/19 10:03) Height: 1.78 m Weight: 80.031 kg Patient Problems: Current Active Problems Thrombocytopenia (Acute) Hematuria (Acute) Status post cerebrovascular accident (Chronic) - VTE Risk Labs: VTE Related Lab Results Hgb 9.5 g/dL (14.1-18.0) L 03/17/19 06:23 Hct 30.9 % (42.0-52.0) L 03/17/19 06:23 Plt Count 36 K/mm3 (142-424) L* 03/17/19 06:23 PT 11.2 seconds (9.4-11.8) 03/16/19 15:45 INR 1.08 (0.9-1.1) 03/16/19 15:45 APTT 25.0 seconds (23.6-34.0) 03/16/19 15:45 BUN 14 mg/dL (7-18) 03/17/19 06:23 Creatinine 0.75 mg/dL (0.70-1.30) 03/17/19 06:23 Estimated Creat Clear 73 mL/min (50-200) 03/17/19 06:23 Was VTE Risk Assessment Performed: Yes VTE Score: 5 VTE Risk Level: Low Risk Clinical Trial Participant: No - Prophylaxis VTE Prophylaxis Ordered?: Yes Types of VTE Prophylaxis: TEDS Knee High Location of Applied Device: Bilateral Lower Extremeties
--- NOTE | 2019-03-17 11:27 | Consult Report ---
*Admission Date: 03/17/19 *Reason for consult:: Gross hematuria *History of present illness: Patient is a 73-year-old white male referred from Dr. Sosa for a 2-day history of gross hematuria. Patient has had a stroke at the beginning of February and his is the primary historian. He has had an eventful month of February. His states he had a stroke at the beginning of February and went to where he spent 11 days. She states he was placed on Xarelto by Dr. Meeks prior to the onset of the stroke for atrial fibrillation. Patient went to [facility] from February 25 to March 10. While there states he was not on blood thinners and that he required a Blancas catheter but patient pulled the catheter out at least 4 times by report. There was associated hematuria with the traumatic removal that cleared spontaneously. Nursing staff then went to in and out catheterizations. He was transferred to [facility] with states he was placed back on Xarelto and the nurses were catheterizing the patient every 8 hours. He had a urine culture on 1225 that was positive for enterococcus. His blood culture at the same time was positive for staph epidermidis. I am unsure if patient was on antibiotics for these infections. Patient presented to [facility] yesterday and admitted for the hematuria. Nurses report that his urine has been clear on today's shift. He has not required catheterization of any sort while here and the states he is been able to void of his own volition. CT scan was performed showing a small right lower pole stone and a renal cyst as well as prostate enlargement. I discussed these findings with the patient and the . We discussed that these are a benign findings and that the stone and cyst are not related to the hematuria. [facility] History Medical History: Reports:: Arrhythmia, Atherosclerotic Heart Disease, Atrial Fibrillation, Cancer, Coronary Artery Disease, Cerebrovascular Accident, Diabetes Mellitus Type 2, Heart Murmur, Hyperlipidemia, Hypertension Denies:: Diabetes Mellitus Type 1, Internal Pacemaker, MRSA, Seizures *Have you ever received a pneumonia vaccine?: Yes *Have you received a flu vaccine this season?: Yes Other Medical History: Reports: Anemia, Chemotherapy, Hoarseness. Denies: Blood Transfusion Reaction Other Surgeries: Yes: Appendectomy, Cardiac Catheterization, Colonoscopy, Coronary Stent, Other (left chest port implanted). No: Pacemaker Amputation: No Fractures: No - *Social History Educational Level: Completed High School Smoking Status: Unknown if ever smoked Tobacco Type: cigarettes # Packs/Day (cigarettes): 2 Alcohol Intake: never Alcohol Intake Frequency:: holidays/special occasions only Substance Use Type: denies use *Occupational Status:: retired Housing: prison Household Members: spouse *Travel in the last 8 weeks: None Family Hx:: Cancer, Heart Attack, Stroke Review of Systems - Review of Systems Review of systems:: pertinent systems reviewed and negative unless documented below - *Neurologic Reports confusion, Reports dizziness, Reports weakness, Denies headache(s) Meds Home Medications Medication Instructions Recorded Confirmed Type Cholecalciferol (Vitamin D3) [D3 2,000 unit PO HS 03/28/17 03/16/19 History Dots] jwvrdinb-ipv-vepfh acid 300 1 tab PO HS tab 08/13/17 03/16/19 History mcg-lycopene 600 mcg-lutein 300 mcg tablet ondansetron HCl 4 mg tablet 8 mg PO Q8HP PRN 08/05/18 03/17/19 History Potassium 20 meq PO DAILY 10/02/18 03/17/19 History Polyethylene Glycol 3350 [Miralax 17 gm PO DAILY 02/13/19 03/17/19 History 17gm Packet] Bisoprolol Fumarate [Bisoprolol 5 mg PO DAILY 03/16/19 03/17/19 History 5mg Tablet] Cefdinir [Omnicef 300mg Capsule] 300 mg PO BID 03/16/19 03/17/19 History Finasteride [Proscar] 5 mg PO DAILY 03/16/19 03/17/19 History Fluconazole [Diflucan] 400 mg PO DAILY 03/16/19 03/17/19 History Melatonin/Pyridoxine HCl (B6) 3 each PO HS 03/16/19 03/17/19 History [Melatonin 3 mg Tablet] Metoprolol Tartrate [Lopressor 12.5 mg PO BID 03/16/19 03/17/19 History 25mg tablet] Mirtazapine [Remeron 15mg tablet] 7.5 mg PO HS 03/16/19 03/17/19 History Trazodone HCl 50 mg PO HSP PRN 03/16/19 03/17/19 History levoFLOXacin [Levaquin 500mg 500 mg PO DAILY 03/16/19 03/17/19 History tab] Acetaminophen 500 mg PO Q4HP PRN 03/17/19 03/17/19 History Acyclovir 400 mg PO TID 03/17/19 03/17/19 History Atorvastatin Calcium [Lipitor 40mg 40 mg PO HS 03/17/19 03/16/19 History Tablet] Bisacodyl [Dulcolax 10mg Supp] 10 mg RC DAILYP PRN 03/17/19 03/17/19 History Sennosides/Docusate Sodium [Senna 2 each PO DAILYP PRN 03/17/19 03/17/19 History Plus 8.6-50 mg Tablet] Allergies Allergy/AdvReac Type Severity Reaction Status Date / Time No Known Allergies Allergy Verified 02/03/19 10:03 Exam Vital signs and Labs for Last 24 Hours: Temp Pulse Resp BP Pulse Ox 98.1 F 82 18 136/81 98 03/17/19 07:53 03/17/19 07:53 03/17/19 07:53 03/17/19 07:53 03/17/19 07:53 Laboratory Results - last 24 hr 03/16/19 15:45: WBC 3.1 L, RBC 2.81 L, Hgb 9.7 L, Hct 31.6 L, MCV 112.3 H, MCH 34.5 H, MCHC 30.7 L, RDW 25.6 H*, Plt Count 40 L*, MPV 8.7, Neut % (Auto) 56.9, Lymph % (Auto) 32.6, [place] % (Auto) 9.5 H, Eos % (Auto) 0.7, Baso % (Auto) 0.2, Neut # (Auto) 1.8, Lymph # (Auto) 1.0, [place] # (Auto) 0.3, Eos # (Auto) 0.0, Baso # (Auto) 0.0 03/16/19 15:45: PT 11.2, INR 1.08, APTT 25.0 03/16/19 15:45: Sodium 142, Potassium 4.1, Chloride 106, Carbon Dioxide 27, Anion Gap 13.1, BUN 18, Creatinine 0.86, Estimated Creat Clear 100, Estimated GFR 87, Est GFR ( Amer) 105, Glucose 103, Calcium 9.3, Total Bilirubin 0.4, AST 31, ALT 59, Alkaline Phosphatase 57, Total Protein 6.2 L, Albumin 3.1 L , Globulin 3.1, Albumin/Globulin Ratio 1.0 L 03/16/19 16:53: Urine Color Yellow, Urine Appearance Clear, Urine pH 6.0, Ur Specific [place] 1.010, Urine Protein Negative, Urine Glucose (UA) Negative, Urine Ketones Negative, Urine Blood 3+, Urine Nitrate Negative, Urine Bilirubin Negative, Urine Urobilinogen 0.2, Ur Leukocyte Esterase Negative, Urine RBC 20- 50, Ur Squamous Epith Cells 3-5 03/16/19 17:17: Blood Type O Positive 03/17/19 06:23: WBC 2.8 L, RBC 2.75 L, Hgb 9.5 L, Hct 30.9 L, MCV 112.4 H, MCH 34.5 H, MCHC 30.7 L, RDW 25.3 H*, Plt Count 36 L*, MPV 7.2 L, Neut % (Auto) 50.2, Lymph % (Auto) 39.0, [place] % (Auto) 9.7 H, Eos % (Auto) 0.9, Baso % (Auto) 0.1, Neut # (Auto) 1.4 L, Lymph # (Auto) 1.1, [place] # (Auto) 0.3, Eos # (Auto) 0.0, Baso # (Auto) 0.0 03/17/19 06:23: Sodium 143, Potassium 3.4 L, Chloride 107, Carbon Dioxide 27, Anion Gap 12.4, BUN 14, Creatinine 0.75, Estimated Creat Clear 73, Estimated GFR 102, Est GFR ( Amer) 123, Glucose 97, Calcium 8.7, Phosphorus 3.7, Magnesium 1.7, Total Bilirubin 0.5, AST 30, ALT 53, Alkaline Phosphatase 51, Total Protein 5.8 L, Albumin 3.0 L, Globulin 2.8, Albumin/Globulin Ratio 1.1, Triglycerides 95, Cholesterol 121 L, LDL Cholesterol 57, VLDL Cholesterol 19, HDL Cholesterol 45, Cholesterol/HDL Ratio 2.7 I & O for Last 24 hours: Intake & Output 03/14/19 03/15/19 03/16/19 03/17/19 23:59 23:59 23:59 23:59 Intake Total 467 / 467 Output Total 1000 / 999 1949 / 1949 Balance -1000 / -1000 -1483 / -1483 Weight 79.492 kg 80.031 kg Narrative: Well-nourished white male in no apparent distress Pupils equal round reactive light Neck is symmetric Head is normocephalic Normal respiratory effort Abdomen normal to visual inspection Internal Medicine - CN: Reslt - Labs CBC & Chem 7: 03/17/19 06:23 03/17/19 06:23 Labs: Short CBC 03/16/19 03/17/19 Range/Units 15:45 06:23 WBC 3.1 L 2.8 L (4.8-10.8) K/mm3 Hgb 9.7 L 9.5 L (14.1-18.0) g/dL Hct 31.6 L 30.9 L (42.0-52.0) % Plt Count 40 L* 36 L* (142-424) K/mm3 BMP 03/16/19 03/17/19 15:45 06:23 Sodium 142 143 Potassium 4.1 3.4 L Chloride 106 107 Carbon Dioxide 27 27 BUN 18 14 Creatinine 0.86 0.75 Glucose 103 97 Calcium 9.3 8.7 Liver Function 03/16/19 03/17/19 Range/Units 15:45 06:23 Total Bilirubin 0.4 0.5 (0.2-1.0) mg/dL AST 31 30 (15-37) U/L ALT 59 53 (12-78) U/L Alkaline Phosphatase 57 51 (46-116) U/L Albumin 3.1 L 3.0 L (3.4-5.0) gm/dL Urine 03/16/19 Range/Units 16:53 Urine Color Yellow (Yellow) Urine Appearance Clear (Clear) Urine pH 6.0 (5.0-8.5) Ur Specific [place] 1.010 (1.005-1.030) Urine Protein Negative (Negative) Urine Glucose (UA) Negative (Negative) Assessment and Plan (1) Hematuria Current visit: Yes Status: Acute Category: Medical Code(s): R31.9 - Hematuria, unspecified 73-year-old white male referred for gross hematuria. Patient with multiple risk factors for the hematuria including recent use of anticoagulants, recent urethral catheterization, recent urinary tract infection, recent traumatic removal of Blancas catheter, and prostate enlargement. Patient urine is clearing and would recommend finishing up a course of antibiotics and abstaining from blood thinners unless necessary. Regarding the patient's ability to empty his bladder after recent stroke it remains to be seen at the can empty his bladder adequately. By report from his he is voiding well. She states he had no difficulties prior to the stroke on February 15. Recommend alpha-bulmaro therapy with tamsulosin to improve any voiding difficulty and follow-up in the office in 2 weeks to ensure adequate emptying and to check up on the hematuria. (2) Thrombocytopenia Current visit: Yes Status: Acute Category: Medical Code(s): D69.6 - Thrombocytopenia, unspecified (3) Chronic myelogenous leukemia Current visit: No Status: Acute Category: Medical Code(s): C92.10 - Chronic myeloid leukemia, BCR/ABL-positive, not having achieved remission (4) Status post cerebrovascular accident Current visit: Yes Status: Chronic Category: Medical Code(s): Z86.73 - Personal history of transient ischemic attack (TIA), and cerebral infarction without residual deficits (5) Hypokalemia Current visit: No Status: Acute Category: Medical Code(s): E87.6 - Hypokalemia
[2019-03-18 09:24] LABS: Basophils % 0.1 % (0.1-2.0); Eosinophils % 0.8 % (0.1-12.0); Lymphocytes # 1.3 K/mm3 (0.7-4.5); Lymphocytes % 38.2 % (10-50); Mean Corpuscular HGB Conc 33.3 g/dL (31.8-35.4); Mean Corpuscular Volume 108.5 fl (80-94); Mean Platelet Volume 9.1 fl (7.4-10.4); Monocytes # 0.3 K/mm3 (0.1-1.0); Monocytes % 8.3 % (1.7-9.3); Neutrophils # 1.8 K/mm3 (1.8-7.8); Neutrophils % 52.6 % (37.0-80.0); Platelet Count 81 K/mm3 (142-424); Red Cell Distribution Width 24.4 % (11.5-17.5)
[2019-03-18 09:36] LABS: Hematocrit 29.7 % (42.0-52.0); Red Blood Count 2.74 M/mm3 (4.60-6.20); White Blood Count 3.5 K/mm3 (4.8-10.8)
[2019-03-18 09:50] LABS: Anion Gap 13.8 mEq/L (5-15); Calcium 9.2 mg/dL (8.5-10.1)
--- NOTE | 2019-03-18 09:56 | Progress Note ---
Internal Medicine - PN: Subj *Date: 03/18/19 *Time: 09:52 Interval history: Mr. Ji seems to be stable. He is resting well. His is anxious about his being discharged to [place]. His platelet count has come up to 81 after the transfusions. Home medicines have not been reordered. His asks about MiraLAX. Dr. Delatorre's consult is reviewed. Tamsulosin is ordered. He will be continued on antibiotics. Exam Vital signs and Labs for Last 24 Hours: Temp Pulse Resp BP Pulse Ox 97.6 F 77 18 145/101 H 97 03/18/19 08:00 03/18/19 08:00 03/18/19 08:00 03/18/19 08:00 03/18/19 08:00 Laboratory Results - last 24 hr 03/16/19 17:17: Blood Type O Positive 03/18/19 09:18: WBC 3.5 L, RBC 2.74 L, Hgb 10.0 L, Hct 29.7 L, MCV 108.5 H, MCH 36.1 H, MCHC 33.3, RDW 24.4 H, Plt Count 81 L D, MPV 9.1, Neut % (Auto) 52.6, Lymph % (Auto) 38.2, [place] % (Auto) 8.3, Eos % (Auto) 0.8, Baso % (Auto) 0.1, Neut # (Auto) 1.8, Lymph # (Auto) 1.3, Love # (Auto) 0.3, Eos # (Auto) 0.0, Baso # (Auto) 0.0 03/18/19 09:18: Sodium 144, Potassium 3.8, Chloride 108 H, Carbon Dioxide 26, Anion Gap 13.8, BUN 21 H D, Creatinine 0.86, Estimated Creat Clear 74, Estimated GFR 87, Est GFR ( Amer) 105, Glucose 113 H, Calcium 9.2 I & O for Last 24 hours: Intake & Output 03/15/19 03/16/19 03/17/19 03/18/19 11:59 11:59 11:59 11:59 Intake Total 467 / 467 871 / 871 Output Total 2950 / 2950 650 / 650 Balance -2483 / -2483 221 / 221 Weight 176 lb 7 oz 178 lb 1.6 oz - Constitutional no acute distress - *Routine HEENT Exam Eye: Present: PERRL ENT: Present: mucous membranes moist - *Routine Respiratory Exam Present: CTA bilaterally - *Routine Cardiovascular Exam Present: RRR - *Routine Abdominal Exam Present: soft. Absent: tenderness - *Routine Extremities Exam Absent: edema - *Routine Neurological Exam Present: alert (No change.) Assessment and Plan (1) Hematuria Current visit: Yes Status: Acute Category: Medical Code(s): R31.9 - Hematuria, unspecified (2) Thrombocytopenia Current visit: Yes Status: Acute Category: Medical Code(s): D69.6 - Thrombocytopenia, unspecified (3) Chronic myelogenous leukemia Current visit: No Status: Acute Category: Medical Code(s): C92.10 - Chronic myeloid leukemia, BCR/ABL-positive, not having achieved remission (4) Status post cerebrovascular accident Current visit: Yes Status: Chronic Category: Medical Code(s): Z86.73 - Personal history of transient ischemic attack (TIA), and cerebral infarction without residual deficits (5) Hypokalemia Current visit: No Status: Acute Category: Medical Code(s): E87.6 - Hypokalemia - Assessment and plan all Dx Assessment and Plan for all problems:: See labs. He is probably stable for transfer to [place].
--- NOTE | 2019-03-18 10:10 | Discharge Summary ---
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 Patient was hospitalized at [facility] from February 15 to February following the stroke after which he went to [facility] for rehab. He was discharged from [facility] March 10, 2019 to [facility] for ongoing rehab. Patient was catheterized numerous times recently in the detention and had actually pulled his catheter out a few times. He was recently seen in the ER and reportedly had a positive blood culture from that visit. Evaluation in the emergency room platelet count was found to be 40,000. He was admitted with a urology consult and for platelet administration. Platelets will be administered upon arrival. This morning patient states he feels fine. He states he slept. He has remained n.p.o. for urology consult. He denies chest pain or shortness of breath. stayed with him throughout the night. He has voided several times and no hematuria has been noted. Hospital Course Hospital Course: Mr. Ji remained stable during hospitalization. He received transfusion of platelets and his platelet count came up to 81 from 36. He was seen in consultation by Dr. Delatorre who basically recommended continuation of antibiotics. The bleeding was probably related to the past trauma with catheterization. He did recommend addition of tamsulosin and this was accomplished. He will be discharged to [facility]. He will be under the care of Hospice as well as Dr. Sosa. He will be continued on his medications prior to hospitalization with the addition of tamsulosin. I will not continue the Levaquin at this point, only the cefdinir. Objective Vital signs: Temp Pulse Resp BP Pulse Ox 97.6 F 77 18 145/101 H 97 03/18/19 08:00 03/18/19 08:00 03/18/19 08:00 03/18/19 08:00 03/18/19 08:00 no acute distress - *Routine HEENT Exam Eye: Present: PERRL ENT: Present: mucous membranes moist - Routine Chest/Breast/Axilla Exam Chest wall: Absent: tenderness - *Routine Respiratory Exam Present: CTA bilaterally - *Routine Cardiovascular Exam Present: RRR - *Routine Abdominal Exam Present: soft. Absent: tenderness - *Routine Exam Penile: Absent: swelling, erythema, lesions - *Routine Extremities Exam Absent: edema - *Routine Skin Exam Present: intact - *Routine Neurological Exam Present: alert Results Labs on day of discharge: Labs from last 24 hours 03/18/19 03/18/19 03/16/19 09:18 09:18 17:17 WBC 3.5 L RBC 2.74 L Hgb 10.0 L Hct 29.7 L MCV 108.5 H MCH 36.1 H MCHC 33.3 RDW 24.4 H Plt Count 81 L D MPV 9.1 Neut % (Auto) 52.6 Lymph % (Auto) 38.2 Nelson % (Auto) 8.3 Eos % (Auto) 0.8 Baso % (Auto) 0.1 Neut # (Auto) 1.8 Lymph # (Auto) 1.3 Nelson # (Auto) 0.3 Eos # (Auto) 0.0 Baso # (Auto) 0.0 Sodium 144 Potassium 3.8 Chloride 108 H Carbon Dioxide 26 Anion Gap 13.8 BUN 21 H D Creatinine 0.86 Estimated Creat Clear 74 Estimated GFR 87 Est GFR ( Amer) 105 Glucose 113 H Calcium 9.2 Blood Type O Positive DS: Diagnosis - Discharge Diagnosis (1) Hematuria Status: Acute (2) Thrombocytopenia Status: Acute (3) Chronic myelogenous leukemia Status: Acute (4) Status post cerebrovascular accident Status: Chronic (5) Hypokalemia Status: Acute Discharge Plan - Patient Discharge Instructions ACTIVITY: Continue current activity DIET: advance to your usual diet - Follow up Plan Follow up with: Eduardo Sosa MD [Primary Care Provider] - Disposition: Xfer [facility] Home Medications: Home Medications Medication Instructions Recorded Confirmed Type Cholecalciferol (Vitamin D3) [D3 2,000 unit PO HS 03/28/17 03/16/19 History Dots] iwfegxae-xej-igbir acid 300 1 tab PO HS tab 08/13/17 03/16/19 History mcg-lycopene 600 mcg-lutein 300 mcg tablet ondansetron HCl 4 mg tablet 8 mg PO Q8HP PRN 08/05/18 03/17/19 History Potassium 20 meq PO DAILY 10/02/18 03/17/19 History Polyethylene Glycol 3350 [Miralax 17 gm PO DAILY 02/13/19 03/17/19 History 17gm Packet] Bisoprolol Fumarate [Bisoprolol 5 mg PO DAILY 03/16/19 03/17/19 History 5mg Tablet] Cefdinir [Omnicef 300mg Capsule] 300 mg PO BID 03/16/19 03/17/19 History Finasteride [Proscar] 5 mg PO DAILY 03/16/19 03/17/19 History Fluconazole [Diflucan] 400 mg PO DAILY 03/16/19 03/17/19 History Melatonin/Pyridoxine HCl (B6) 3 each PO HS 03/16/19 03/17/19 History [Melatonin 3 mg Tablet] Metoprolol Tartrate [Lopressor 12.5 mg PO BID 03/16/19 03/17/19 History 25mg tablet] Mirtazapine [Remeron 15mg tablet] 7.5 mg PO HS 03/16/19 03/17/19 History Trazodone HCl 50 mg PO HSP PRN 03/16/19 03/17/19 History levoFLOXacin [Levaquin 500mg 500 mg PO DAILY 03/16/19 03/17/19 History tab] Acetaminophen 500 mg PO Q4HP PRN 03/17/19 03/17/19 History Acyclovir 400 mg PO TID 03/17/19 03/17/19 History Atorvastatin Calcium [Lipitor 40mg 40 mg PO HS 03/17/19 03/16/19 History Tablet] Bisacodyl [Dulcolax 10mg Supp] 10 mg RC DAILYP PRN 03/17/19 03/17/19 History Sennosides/Docusate Sodium [Senna 2 each PO DAILYP PRN 03/17/19 03/17/19 History Plus 8.6-50 mg Tablet] Tamsulosin HCl [Flomax 0.4mg 0.4 mg PO HS #30 cap.er.24h 03/18/19 Rx capsule] Prescriptions/Medication Reconciliation: New Tamsulosin HCl [Flomax 0.4mg capsule] 0.4 mg PO HS #30 cap.er.24h Continued psqstpte-chl-umrtc acid 300 mcg-lycopene 600 mcg-lutein 300 mcg tablet 1 tab PO HS tab ondansetron HCl 4 mg tablet 8 mg PO Q8HP PRN PRN Reason: Nausea Cholecalciferol (Vitamin D3) [D3 Dots] 2,000 unit PO HS Potassium 20 meq PO DAILY Polyethylene Glycol 3350 [Miralax 17gm Packet] 17 gm PO DAILY Metoprolol Tartrate [Lopressor 25mg tablet] 12.5 mg PO BID Cefdinir [Omnicef 300mg Capsule] 300 mg PO BID Acyclovir 400 mg PO TID Melatonin/Pyridoxine HCl (B6) [Melatonin 3 mg Tablet] 3 each PO HS levoFLOXacin [Levaquin 500mg tab] 500 mg PO DAILY Atorvastatin Calcium [Lipitor 40mg Tablet] 40 mg PO HS Trazodone HCl 50 mg PO HSP PRN PRN Reason: Sleep Mirtazapine [Remeron 15mg tablet] 7.5 mg PO HS Acetaminophen 500 mg PO Q4HP PRN PRN Reason: PAIN Finasteride [Proscar] 5 mg PO DAILY Sennosides/Docusate Sodium [Senna Plus 8.6-50 mg Tablet] 2 each PO DAILYP PRN PRN Reason: Constipation Discontinued Bisacodyl [Dulcolax 10mg Supp] 10 mg RC DAILYP PRN PRN Reason: Constipation Fluconazole [Diflucan] 400 mg PO DAILY Bisoprolol Fumarate [Bisoprolol 5mg Tablet] 5 mg PO DAILY - Problem Reconciliation Problems Reviewed?: Yes
== END 2019-03-18 14:55 ==
LOC: 2ND 15:15 → ER 15:15 → 2ND 18:41
PROVIDERS: ADMIT Family Medicine; ATTEND Family Medicine
CPT/HCPCS: 36415; 74176; 80048; 80053; 80061; 81001; 83735; 84100; 85025; 85610; 85730; 86900; 86901; 99284; G0378; P9034